=== PATIENT | male | born 1950 | race Caucasian/White ===

== ENCOUNTER 2022-07-29 11:45 | Outpatient (CLI) | payer OTHER, SELFPAY | END 2022-07-29 11:46 | disposition home or self-care (01) | LOC: AMB 07-31 19:20 | PROVIDERS: Visit Provider Emergency Medicine Emergency Medical Services | DX: J44.9 Chronic obstructive pulmonary disease, unspecified (principal); R60.9 Edema, unspecified | CPT/HCPCS: A0425; A0429 ==

== ENCOUNTER 2022-07-29 12:26 | Emergency (ER) | payer OTHER, SELFPAY ==
[2022-07-29 12:33] VITALS: BP 114/92; PULSE 110; RESP 20; TEMP 36.7; O2SAT 97; BMI 47.4
[2022-07-29 13:56] LABS: HCO3 VBG 29 mmol/L (21-28); PCO2 VBG 47 mmHG (40-50); PO2 VBG 52.9 mmHG (25-47); pH VBG 7.401 (7.32-7.43)
--- NOTE | 2022-07-29 14:03 | ED_ITS ---
HPI - General Adult General Date Seen: 07/29/22 Chief complaint: Shortness of Breath/Dyspnea Stated complaint: Shortness of breath Time Seen by Provider: 07/29/22 12:34 Source: patient History of Present Illness HPI narrative: The patient is a 71-year-old male with underlying COPD who lives independently. He says that he felt at baseline when he woke up this morning but around 10 30 start to feel short of breath in over the next 10 minutes or so became short of breath enough that he decided to call 911. He tried his inhalers a few times at home but did not feel any relief. The paramedics gave him a DuoNeb and he felt quite a bit better after that but does not feel back to baseline. Denies any chest pain. He always has a cough which is normally productive but he says right now he is having difficulty coughing anything up which he thinks is part of the problem. He has not had fevers that he knows of. He always has swelling in his legs, he takes Lasix for that. He feels he is at baseline for that. Does not know of any history of congestive heart failure. No longer smokes. Related Data Home Medications Medication Instructions Recorded Confirmed acitretin 25 mg capsule 25 mg PO DAILY 07/29/22 07/29/22 dextromethorphan-guaifenesin 10 10 ml PO Q8H PRN 07/29/22 07/29/22 mg-100 mg/5 mL oral liquid (Laurence-Tussin DM) furosemide 40 mg tablet 20 mg PO DAILY 07/29/22 07/29/22 gabapentin 400 mg capsule 400 mg PO TID 07/29/22 07/29/22 loratadine 10 mg tablet (Claritin) 10 mg PO DAILY 07/29/22 07/29/22 losartan 100 mg tablet (Cozaar) 100 mg PO DAILY 07/29/22 07/29/22 metoprolol succinate 200 mg 200 mg PO Q24H 07/29/22 07/29/22 capsule sprinkle, ext. release 24 hr tamsulosin 0.4 mg capsule (Flomax) 0.4 mg PO QHS 07/29/22 07/29/22 Allergies Allergy/AdvReac Type Severity Reaction Status Date / Time No Known Drug Allergies Allergy Verified 07/29/22 12:51 Review of Systems Status of ROS: Reports: 10 or more systems reviewed and unremarkable except as noted in History and below Exam Narrative: Exam Narrative: Vital signs as noted above. In general, an alert, nontoxic elderly male. Significantly overweight. Head: Normocephalic, atraumatic. Eyes: Pupils are equal reactive. Extraocular movements are full. Conjunctivae are normal. ENT: Mucous membranes are moist. Throat is normal. Neck: Supple without lymphadenopathy. Heart: Regular rate and rhythm. No murmur or rub. Lungs: Breath sounds are diminished with occasional wheezes. No significant crackles. Abdomen: Protuberant and soft, no significant tenderness. Extremities: He has [place] type boots on both lower extremities, these were not removed. Radial pulses intact bilaterally. Neurologic: Patient is alert and oriented to person and place. Speech is fluent. Face is symmetric. Moves all extremities equally. Affect: Normal. Skin: Warm and dry. Well perfused. Const: Vital Signs, click to edit/add: Vital Signs - 24 hr 07/29/22 12:33 Temperature 98.1 F Pulse Rate [Left P ulse Oximeter] 110 H Respiratory Rate 20 Blood Pressure [Le ft Upper Arm] 114/92 H Pulse Oximetry 97 Oxygen Delivery Me thod Room Air Documenting provider has reviewed patient's vital signs: yes Course Course Hospital Course: Following initial evaluation, I ordered an additional albuterol neb as well as prednisone. Symptoms may be related to a COPD exacerbation. Patient thinks they might be related to something he ate as he has had a couple episodes like this after eating a subway sandwich a number of years ago. He had breakfast including toast, eggs, sausage, nothing really out of the ordinary for him. He did not have any hives or other allergic-type symptoms. Certainly is not presenting as an anaphylactic type reaction. He has not received any antihistamines. Blood gas shows a pH of 7.4. PCO2 is 47. Labs show a white blood cell count of 9.7, hemoglobin of 13.9. D-dimer was elevated at 1.35 and I elected to do a CT scan of the chest with contrast. This did not show any evidence of pulmonary embolism by my review. Final radiology read is as follows: Bibasilar ground-glass/tree-in-bud nodularity, likely from aspiration. No large focal consolidations. Indeterminate right upper lobe 6 millimeters subpleural pulmonary nodule, likely infectious/inflammatory in etiology. However, recommend dedicated chest CT in 6 months to evaluate for interval change. Incomplete visualization of left adrenal mass with Hounsfield units of approximately 10-15, which likely suggest adenoma. However, recommend correlation with prior imaging if available. If not, consider outpatient adrenal washout protocol CT for definitive characterization. I have discussed these findings with the patient. It sounds as if that nodule has been seen previously, as he seems to be aware of it. Nonetheless, I have printed out the CT report so that [facility] sure that that [facility]. The adrenal mass will need to be followed up as well. CRP is mildly elevated at 4, otherwise labs really look okay. Troponin was negative on arrival and at 3 hours.. I do not see anything to suggest acute coronary syndrome. BNP was 472. The ground-glass findings, likely aspiration, again can be followed up as an outpatient if that is a persistent problem. At this point, he is feeling much better. He is up having a meal. Breathing is improved. I think it is reasonable to let him go home. Suspect component of COPD exacerbation, possible aspiration component. Primary care follow-up, return at any time for worsening. Steroids and antibiotics as ordered. Vital Signs Vital signs: Initial Vital Signs Temperature 98.1 F 07/29/22 12:33 Temperature Source Temporal Artery Scan 07/29/22 12:33 Pulse Rate 110 H 07/29/22 12:33 Pulse Rhythm 07/29/22 12:33 Pulse Strength 3+ Normal 07/29/22 12:33 Respiratory Rate 20 07/29/22 12:33 Blood Pressure 114/92 H 07/29/22 12:33 Blood Pressure Mean 99 07/29/22 12:33 Blood Pressure Position Sitting 07/29/22 12:33 Pulse Oximetry 97 07/29/22 12:33 Oxygen Delivery Method 07/29/22 12:33 Vital Signs Temperature 98.1 F 07/29/22 12:33 Pulse Rate 110 H 07/29/22 12:33 Respiratory Rate 20 07/29/22 12:33 Blood Pressure 114/92 H 07/29/22 12:33 Pulse Oximetry 97 07/29/22 12:33 Oxygen Delivery Method 07/29/22 12:33 Temperature 98.1 F 07/29/22 12:33 Pulse Rate 110 H 07/29/22 12:33 Respiratory Rate 20 07/29/22 12:33 Blood Pressure 114/92 H 07/29/22 12:33 Pulse Oximetry 97 07/29/22 12:33 Oxygen Delivery Method 07/29/22 12:33 Medical Decision Making Lab Data Labs: Lab Results 07/29/22 07/29/22 07/29/22 Range/Units 13:25 13:25 13:25 WBC (4.50-11.00) K/uL RBC (4.30-5.90) m/uL Hgb (13.5-17.5) gm/dL Hct (37.0-53.0) % MCV (80-100) fL MCH (26-34) pg MCHC (32-36) gm/dL RDW Coeff of Sharonda (11.5-15.5) % Plt Count (140-440) K/uL Neut % (Auto) (42.0-72.0) % Lymph % (Auto) (20-44) % [place] % (Auto) (0.0-11.0) % Eos % (Auto) (0.0-7.0) % Baso % (Auto) (0.0-3.0) % Neut # (Auto) (1.7-7.0) K/uL Lymph # (Auto) (0.90-2.90) K/uL [place] # (Auto) (0.00-0.90) K/UL Eos # (Auto) (0.00-0.50) K/uL Baso # (Auto) (0.00-0.30) K/uL D-Dimer Quant (PE/DVT) 1.35 H (0.00-0.50) ug/ml VBG pH (7.32-7.43) VBG pCO2 (40-50) mmHG VBG pO2 (25-47) mmHG VBG HCO3 (21-28) mmol/L Sodium 141 (135-149) mmol/L Potassium 3.9 (3.6-5.1) mmol/L Chloride 105 (96-114) mmol/L Carbon Dioxide 28 (20-32) mmol/L BUN 28 (7-30) mg/dL Creatinine 1.2 (0.5-1.5) mg/dL Estimated Creat Clear 70.13 Estimated GFR 64 ml/min Glucose 115 (60-115) mg/dL Calcium 9.1 (8.4-10.6) mg/dL Total Bilirubin 0.9 (0.1-1.5) mg/dL Direct Bilirubin 0.4 (0.0-0.5) mg/dL AST 28 (12-35) U/L ALT 32 (4-50) U/L Alkaline Phosphatase 108 (40-150) U/L C-Reactive Protein 4.0 H (0.5-1.0) mg/dL NT-Pro-B Natriuret Pep pg/mL Total Protein 7.8 (6.0-8.3) g/dL Albumin 4.2 (3.3-5.0) g/dL SARS-CoV-2 (PCR) Negative SARS-CoV-2 (Negative) Influenza Type A (PCR) Negative PCR FLU A (Negative) Influenza Type B (PCR) Negative PCR FLU B (Negative) RSV (PCR) Negative PCR RSV (Negative) POC Troponin I (0.01-0.04) ng/ml 07/29/22 07/29/22 07/29/22 Range/Units 13:25 13:25 13:25 WBC (4.50-11.00) K/uL RBC (4.30-5.90) m/uL Hgb (13.5-17.5) gm/dL Hct (37.0-53.0) % MCV (80-100) fL MCH (26-34) pg MCHC (32-36) gm/dL RDW Coeff of Sharonda (11.5-15.5) % Plt Count (140-440) K/uL Neut % (Auto) (42.0-72.0) % Lymph % (Auto) (20-44) % [place] % (Auto) (0.0-11.0) % Eos % (Auto) (0.0-7.0) % Baso % (Auto) (0.0-3.0) % Neut # (Auto) (1.7-7.0) K/uL Lymph # (Auto) (0.90-2.90) K/uL [place] # (Auto) (0.00-0.90) K/UL Eos # (Auto) (0.00-0.50) K/uL Baso # (Auto) (0.00-0.30) K/uL D-Dimer Quant (PE/DVT) (0.00-0.50) ug/ml VBG pH 7.401 (7.32-7.43) VBG pCO2 47 (40-50) mmHG VBG pO2 52.9 H (25-47) mmHG VBG HCO3 29 H (21-28) mmol/L Sodium (135-149) mmol/L Potassium (3.6-5.1) mmol/L Chloride (96-114) mmol/L Carbon Dioxide (20-32) mmol/L BUN (7-30) mg/dL Creatinine (0.5-1.5) mg/dL Estimated Creat Clear Estimated GFR ml/min Glucose (60-115) mg/dL Calcium (8.4-10.6) mg/dL Total Bilirubin (0.1-1.5) mg/dL Direct Bilirubin (0.0-0.5) mg/dL AST (12-35) U/L ALT (4-50) U/L Alkaline Phosphatase (40-150) U/L C-Reactive Protein (0.5-1.0) mg/dL NT-Pro-B Natriuret Pep 472 pg/mL Total Protein (6.0-8.3) g/dL Albumin (3.3-5.0) g/dL SARS-CoV-2 (PCR) (Negative) Influenza Type A (PCR) (Negative) Influenza Type B (PCR) (Negative) RSV (PCR) (Negative) POC Troponin I 0.00 L (0.01-0.04) ng/ml 07/29/22 07/29/22 Range/Units 14:42 15:33 WBC 9.71 (4.50-11.00) K/uL RBC 4.55 (4.30-5.90) m/uL Hgb 13.9 (13.5-17.5) gm/dL Hct 43.0 (37.0-53.0) % MCV 95 (80-100) fL MCH 31 (26-34) pg MCHC 32 (32-36) gm/dL RDW Coeff of Sharonda 14.6 (11.5-15.5) % Plt Count 228 (140-440) K/uL Neut % (Auto) 69.9 (42.0-72.0) % Lymph % (Auto) 14.3 L (20-44) % [place] % (Auto) 8.8 (0.0-11.0) % Eos % (Auto) 5.7 (0.0-7.0) % Baso % (Auto) 0.2 (0.0-3.0) % Neut # (Auto) 6.79 (1.7-7.0) K/uL Lymph # (Auto) 1.40 (0.90-2.90) K/uL [place] # (Auto) 0.90 (0.00-0.90) K/UL Eos # (Auto) 0.55 H (0.00-0.50) K/uL Baso # (Auto) 0.02 (0.00-0.30) K/uL D-Dimer Quant (PE/DVT) (0.00-0.50) ug/ml VBG pH (7.32-7.43) VBG pCO2 (40-50) mmHG VBG pO2 (25-47) mmHG VBG HCO3 (21-28) mmol/L Sodium (135-149) mmol/L Potassium (3.6-5.1) mmol/L Chloride (96-114) mmol/L Carbon Dioxide (20-32) mmol/L BUN (7-30) mg/dL Creatinine (0.5-1.5) mg/dL Estimated Creat Clear Estimated GFR ml/min Glucose (60-115) mg/dL Calcium (8.4-10.6) mg/dL Total Bilirubin (0.1-1.5) mg/dL Direct Bilirubin (0.0-0.5) mg/dL AST (12-35) U/L ALT (4-50) U/L Alkaline Phosphatase (40-150) U/L C-Reactive Protein (0.5-1.0) mg/dL NT-Pro-B Natriuret Pep pg/mL Total Protein (6.0-8.3) g/dL Albumin (3.3-5.0) g/dL SARS-CoV-2 (PCR) (Negative) Influenza Type A (PCR) (Negative) Influenza Type B (PCR) (Negative) RSV (PCR) (Negative) POC Troponin I 0.00 L (0.01-0.04) ng/ml Discharge Plan Discharge Clinical Impression: Acute infective exacerbation of chronic obstructive airway disease Patient Disposition: Home, Self-Care Condition: Improved Instructions: COPD (Chronic Obstructive Pulmonary Disease) (DC) Additional Instructions: Medications as prescribed. If your shortness of breath is worsening over the next couple of days, return at any time for re-evaluation. If you are not feeling improved over the next several days, follow-up with your primary care provider, or if that is not an option, return to the ER. Activity Level: No Restrictions Discharge Diet: Regular Prescriptions: No Action gabapentin 400 mg capsule 400 mg PO TID loratadine [Claritin] 10 mg tablet 10 mg PO DAILY metoprolol succinate 200 mg capsule,sprinkle,ER 24hr 200 mg PO Q24H furosemide 40 mg tablet 20 mg PO DAILY losartan [Cozaar] 100 mg tablet 100 mg PO DAILY tamsulosin [Flomax] 0.4 mg capsule 0.4 mg PO QHS acitretin 25 mg capsule 25 mg PO DAILY dextromethorphan-guaifenesin [Laurence-Tussin DM] 10-100 mg/5 mL liquid 10 ml PO Q8H PRN Follow Up/Referrals: Juliocesar Pierce MD [Staff Physician] - Stand Alone Forms: [employer] Info Instructions Discharge Comment: Pt has his medications with him to take when he gets home
[2022-07-29] MEDS: ALBUTEROL SULFATE 2.5 MG/3 ML VIAL.NEB NEB (14:07)
[2022-07-29] MEDS: predniSONE 20 MG TABLET 60 MG PO (14:07)
[2022-07-29 14:14] LABS: Albumin* 4.2 g/dL (3.3-5.0); Chloride* 105 mmol/L (96-114)
[2022-07-29 14:15] LABS: Potassium* 3.9 mmol/L (3.6-5.1); Sodium* 141 mmol/L (135-149)
[2022-07-29 14:16] LABS: Creatinine* 1.2 mg/dL (0.5-1.5); Est. Creatinine Clearance* 70.13; Estimated Glomerular Filt Rate 64 ml/min
[2022-07-29 14:17] LABS: Bilirubin Direct* 0.4 mg/dL (0.0-0.5); Bilirubin Total* 0.9 mg/dL (0.1-1.5)
[2022-07-29 14:18] LABS: Alanine Aminotransferase* 32 U/L (4-50); Alkaline Phosphatase* 108 U/L (40-150); Aspartate Amino Transferase* 28 U/L (12-35); Blood Urea Nitrogen* 28 mg/dL (7-30); Calcium* 9.1 mg/dL (8.4-10.6); Carbon Dioxide* 28 mmol/L (20-32); Glucose* 115 mg/dL (60-115); Total Protein* 7.8 g/dL (6.0-8.3)
[2022-07-29 14:34] LABS: PCR FLU A Negative PCR FLU A (Negative); PCR FLU B Negative PCR FLU B (Negative); PCR RSV Negative PCR RSV (Negative)
[2022-07-29 14:43] LABS: SARS PCR* Negative SARS-CoV-2 (Negative)
[2022-07-29 14:54] LABS: NT Pro B Type NatriureticPept* 472 pg/mL
[2022-07-29 15:04] LABS: Basophils Absolute Auto 0.02 K/uL (0.00-0.30); Basophils Percent Auto 0.2 % (0.0-3.0); Eosinophils Absolute Auto 0.55 K/uL (0.00-0.50); Eosinophils Percent Auto 5.7 % (0.0-7.0); Hemoglobin* 13.9 gm/dL (13.5-17.5); Immature Granulocytes Abs Auto 0.11 K/uL (0.00-0.30); Immature Granulocytes Pct Auto 1.1 %; Lymphocytes Percent Auto 14.3 % (20-44); Mean Corpuscular HGB Conc 32 gm/dL (32-36); Mean Corpuscular Hemoglobin 31 pg (26-34); Mean Corpuscular Volume 95 fL (80-100); Monocytes Percent Auto 8.8 % (0.0-11.0); Neutrophils Absolute Auto 6.79 K/uL (1.7-7.0); Neutrophils Percent Auto 69.9 % (42.0-72.0); Platelet Count* 228 K/uL (140-440); RDW Coefficient of Variation % 14.6 % (11.5-15.5); Red Blood Count 4.55 m/uL (4.30-5.90); White Blood Count* 9.71 K/uL (4.50-11.00)
[2022-07-29 15:21] LABS: D Dimer Quantitative* 1.35 ug/ml (0.00-0.50)
[2022-07-29 15:21] LABS: Slide Review Reflex No
--- NOTE | 2022-07-29 15:33 | CRLHL7_ITS ---
For Patients: As a result of the Century Cures Act, medical imaging exams and procedure reports are released immediately into your electronic medical record. You may view this report before your referring provider. If you have questions, please contact your health care provider. INDICATION: [id number]. TECHNIQUE: CT chest PE was acquired with 95 cc Omnipaque 350 IV contrast. COMPARISON: None. FINDINGS: Heart and vasculature: Contrast opacification of the pulmonary arterial tree is adequate. No sign of pulmonary embolism. Heart size is normal. Thoracic aorta and pulmonary artery are normal in caliber. Aortic arch and coronary artery calcifications. Lungs and pleura: Bibasilar ground-glass/tree-in-bud nodules. Linear right upper lobe subpleural consolidation, likely atelectasis scattered atelectasis. Incidental 6 millimeter right upper lobe subpleural pulmonary nodule. No pleural effusions, pleural thickening, or pneumothorax. Lymph nodes/mediastinum: No mediastinal, hilar, or axillary adenopathy. Chest wall: No masses. Upper abdomen: Incomplete visualization of left adrenal mass with Hounsfield units of approximately 10 to 15, which likely suggests adenoma. No acute or significant findings. Bones: Degenerative changes. IMPRESSION: No pulmonary embolism, as questioned. Bibasilar ground-glass/tree-in-bud nodularity, likely from aspiration. No large focal consolidations. Indeterminate right upper lobe 6 millimeters subpleural pulmonary nodule, likely infectious/inflammatory in etiology. However, recommend dedicated chest CT in 6 months to evaluate for interval change. Incomplete visualization of left adrenal mass with Hounsfield units of approximately 10-15, which likely suggest adenoma. However, recommend correlation with prior imaging if available. If not, consider outpatient adrenal washout protocol CT for definitive characterization. Please note that all CT scans at this facility use dose modulation, iterative reconstruction, and/or weight-based dosing when appropriate to reduce radiation dose to as low as reasonably achievable. Dictated by Nadir Sheets MD @ 07/29/2022 4:40:37 PM (Electronically Signed)
== END 2022-07-29 18:14 | disposition home or self-care (01) ==
PROVIDERS: Emergency Provider Emergency Medicine
DX: J44.1 Chronic obstructive pulmonary disease with (acute) exacerbation (principal)
CPT/HCPCS: 36415; 71260; 80048; 80076; 82803; 83880; 84484; 85025; 85379; 86140; 87502; 87634; 87635; 93005; 94640; 99284; 99285; J7512; Q9967

== ENCOUNTER 2022-07-29 18:07 | Outpatient (CLI) | payer OTHER, SELFPAY | END 2022-07-29 18:08 | disposition home or self-care (01) | LOC: AMB 07-31 19:38 | PROVIDERS: Visit Provider Emergency Medicine | DX: J44.9 Chronic obstructive pulmonary disease, unspecified (principal) | CPT/HCPCS: A0425; A0428 ==

== ENCOUNTER 2023-01-10 07:05 | Outpatient (CLI) | payer OTHER, SELFPAY | END 2023-01-10 07:06 | disposition home or self-care (01) | LOC: AMB 02-05 15:44 | PROVIDERS: Visit Provider Emergency Medicine | DX: R53.1 Weakness (principal) | CPT/HCPCS: A0998 ==

== ENCOUNTER 2024-03-25 09:22 | Inpatient (IN) | payer OTHER, SELFPAY ==
[2024-03-25] VITALS (29 sets, daily range): BP systolic 106–127; BP diastolic 65–80; PULSE 80–120; RESP 18–36; TEMP 36.1–36.7; O2SAT 84–99; BMI 40.8; BMI 43.0
--- NOTE | 2024-03-25 09:30 | ED_ITS ---
HPI - General Adult General Date Seen: 03/25/24 Chief complaint: Shortness of Breath/Dyspnea Stated complaint: Shortness of breath Time Seen by Provider: 03/25/24 09:22 History of Present Illness HPI narrative: 73-year-old male with history of COPD, hypertension, BPH, AFib (on Eliquis) CHF (on furosemide) presenting to the ER today this morning by EMS from home for evaluation of shortness of breath. Patient reports that he does have some ongoing trouble with COPD. Last time he had a flare of COPD was a couple of months ago when he was on a course of prednisone at that time. He started having shortness of breath yesterday evening at home and also had some chest pain lasted for a while but then resolved (across the entire chest, nonradiating. Overnight he was short of breath. This morning he was more short of breath. He tried to give himself his nebs at home but they were not helping. He called EMS. They felt he was wheezy. EMS administered DuoNeb and then continues albuterol neb EN route but he was still tachypneic and short of breath. He is not having any chest pain overnight or today. He does have some swelling in both of his feet but he says that that is long-standing and sometimes gets better and worse. It is about normal. No new peripheral edema. The no known sick exposures. He has had some mild cough but no purulent sputum. No fevers. No nausea or vomiting. No abdominal pain. No back pain. Related Data Home Medications ?Medication ?Instructions ?Recorded ?Confirmed acitretin 25 mg capsule 25 mg PO DAILY 07/29/22 07/29/22 dextromethorphan-guaifenesin 10 10 ml PO Q8H PRN 07/29/22 07/29/22 mg-100 mg/5 mL oral liquid (Laurence-Nadinein DM) furosemide 40 mg tablet 20 mg PO DAILY 07/29/22 07/29/22 gabapentin 400 mg capsule 400 mg PO TID 07/29/22 07/29/22 loratadine 10 mg tablet (Claritin) 10 mg PO DAILY 07/29/22 07/29/22 losartan 100 mg tablet (Cozaar) 100 mg PO DAILY 07/29/22 07/29/22 metoprolol succinate 200 mg 200 mg PO Q24H 07/29/22 07/29/22 capsule sprinkle, ext. release 24 hr tamsulosin 0.4 mg capsule (Flomax) 0.4 mg PO QHS 07/29/22 07/29/22 Allergies Allergy/AdvReac Type Severity Reaction Status Date / Time No Known Drug Allergies Allergy Verified 03/25/24 12:26 [facility] Social History Non-prescribed substance use: denies use Exam Narrative: Exam Narrative: Primary Survey: A- patent. Speaking clearly. Phonation normal. No stridor. B- being placed on BiPAP by RT is into the room. On BiPAP his work of breathing seems to calm and respiratory rate comes down into the teens.. Fairly diffuse wheezing in all lung quick oxygenating well on 30% FiO2 C- no active bleeding. Blood pressure stable. Symmetric pulses and cap refill in 4 extremities. He does have 3+ edema in both of his feet D- alert and oriented x3. GCS 15. No focal deficits. Constitutional: Appears well-developed and well-nourished. Alert. Conversant through his BiPAP mask. Mental status normal. HENT: Head: Atraumatic. Nose: Nose normal. Mouth/Throat: Oral mucosa is clear and moist. no trismus. Not able to visualize pharynx because he has BiPAP mask Eyes: Conjunctivae normal. EOM normal. Pupils equal, round, and reactive to light. No scleral icterus. Neck: Normal range of motion. Neck supple. No tracheal deviation present. No JVD Cardiovascular: Tachycardic, regular rhythm. No gallop. No friction rub. No murmur heard. Symmetric radial artery pulses Pulmonary/Chest: Presented by EMS with significant tachypnea. Work of breathing is improving now that he starting on BiPAP. Diffuse wheezy lung sounds Abdominal: Soft. No distension. No mass. No tenderness. No rebound. No guarding. Musculoskeletal: RUE: Normal range of motion. No tenderness. No deformity LUE: Normal range of motion. No tenderness. No deformity RLE: Normal range of motion. 3+ edema. No tenderness. No deformity LLE: Normal range of motion. 3+ edema. No tenderness. No deformity Neurological: Alert and oriented to person, place, and time. Normal strength. CN II-VII intact. No sensory deficit. GCS eye subscore is 4. GCS verbal subscore is 5. GCS motor subscore is 6. Normal coordination Skin: Skin is warm and dry. No rash noted. No pallor. Normal capillary refill. Psychiatric: Normal mood. Normal affect. Const: Vital Signs, click to edit/add: Vital Signs - 24 hr 03/25/24 09:31 03/25/24 09:57 03/25/24 10:00 Temperature Pulse Rate 109 H 105 H Pulse Rate [Pulse Oximeter] 112 H Respiratory Rate 20 Blood Pressure Blood Pressure [Le ft Forearm] 127/73 Pulse Oximetry 98 95 93 Oxygen Delivery Me thod Room Air BiPAP Fraction of Inspir ed Oxygen 03/25/24 10:07 03/25/24 10:15 03/25/24 10:30 Temperature Pulse Rate 104 H 106 H Pulse Rate [Pulse Oximeter] Respiratory Rate Blood Pressure Blood Pressure [Le ft Forearm] Pulse Oximetry 93 95 Oxygen Delivery Me thod Fraction of Inspir ed Oxygen 03/25/24 10:45 03/25/24 11:00 03/25/24 11:15 Temperature Pulse Rate 102 H 120 H 109 H Pulse Rate [Pulse Oximeter] Respiratory Rate Blood Pressure Blood Pressure [Le ft Forearm] Pulse Oximetry 93 84 L 96 Oxygen Delivery Me thod Fraction of Inspir ed Oxygen 03/25/24 11:21 03/25/24 11:30 03/25/24 11:32 Temperature Pulse Rate 107 H 103 H 103 H Pulse Rate [Pulse Oximeter] Respiratory Rate Blood Pressure 127/80 107/69 Blood Pressure [Le ft Forearm] Pulse Oximetry 99 94 93 Oxygen Delivery Me thod Fraction of Inspir ed Oxygen 03/25/24 11:45 03/25/24 12:43 03/25/24 12:45 Temperature Pulse Rate 107 H 97 94 Pulse Rate [Pulse Oximeter] Respiratory Rate Blood Pressure 117/72 Blood Pressure [Le ft Forearm] Pulse Oximetry 95 94 98 Oxygen Delivery Me thod Fraction of Inspir ed Oxygen 03/25/24 12:46 03/25/24 13:00 03/25/24 13:02 Temperature Pulse Rate 96 95 94 Pulse Rate [Pulse Oximeter] Respiratory Rate Blood Pressure 122/67 Blood Pressure [Le ft Forearm] Pulse Oximetry 98 95 94 Oxygen Delivery Me thod Fraction of Inspir ed Oxygen 03/25/24 13:02 03/25/24 13:02 03/25/24 13:02 Temperature Pulse Rate 94 94 94 Pulse Rate [Pulse Oximeter] Respiratory Rate Blood Pressure 122/67 122/67 122/67 Blood Pressure [Le ft Forearm] Pulse Oximetry 94 94 94 Oxygen Delivery Me thod Fraction of Inspir ed Oxygen 03/25/24 13:15 03/25/24 13:16 Temperature 97.0 F L Pulse Rate 96 Pulse Rate [Pulse Oximeter] Respiratory Rate Blood Pressure Blood Pressure [Le ft Forearm] Pulse Oximetry 97 Oxygen Delivery Me thod Fraction of Inspir ed Oxygen Course Course ED Course: Recheck-initial read of x-ray shows no definite pulmonary edema but small right pleural effusion. Somewhat equivocal for CHF. Nebs and steroids ordered. Reevaluation(s) Reevaluation #1: Recheck-BNP level came back fairly low and normal, arguing against possible CHF. Given potential bilateral infiltrates x-ray consider possible pneumonia. COVID negative. Antibiotics for community-acquired pneumonia ordered as well. Reevaluation #2: Recheck-patient momentarily took his BiPAP off and got much more short of breath, and he desaturated down to the 70s. Nurses did call for rapid support from RT. RT and myself responded. He was placed back on BiPAP and sats came up nicely. Respirations stable. Turns out he had not yet received the nebs I had ordered, these were given. Reevaluation #3: Recheck-discussed with hospitalist, Hannah Johnson. She requests that we do further workup with a chest CT before she can accept the patient, but if CT scan shows no unexpected or dangers finding, she anticipates she could keep him in the critical care unit here in [place]. Patient would prefer to transfer to the [place], if available. Additional Reevaluation(s[facility] but will contact administation to see if something can be arranged and they will call back Consultations Consultation #1: Recheck-patient became more anxious and claustrophobic with laying down and going through the CT scanner. Versed 1 mg IV ordered. Patient subsequently able to tolerate CT. Recheck-CT scan shows no evidence for PE, pulmonary edema, pneumothorax, pleural effusion, or large pneumonia. Consultation #2: Recheck-breathing well on BiPAP. Oxygen sats in the 90s on 30% FiO2. Blood pressure 132/64. Watching TV. Feeling better compared to arrival. [facility] with the [facility] He would be agreeable to be admitted here then Vital Signs Vital signs: Initial Vital Signs Pulse Rate 112 H 03/25/24 09:31 Respiratory Rate 20 03/25/24 09:31 Blood Pressure 127/73 03/25/24 09:31 Blood Pressure Mean 91 03/25/24 09:31 Blood Pressure Position Sitting 03/25/24 09:31 Pulse Oximetry 98 03/25/24 09:31 Oxygen Delivery Method Room Air, BiPAP 03/25/24 09:31 Vital Signs Pulse Rate 112 H 03/25/24 09:31 Respiratory Rate 20 03/25/24 09:31 Blood Pressure 127/73 03/25/24 09:31 Pulse Oximetry 98 03/25/24 09:31 Oxygen Delivery Method Room Air, BiPAP 03/25/24 09:31 Temperature 97.0 F L 03/25/24 13:16 Pulse Rate 96 03/25/24 13:15 Respiratory Rate 20 03/25/24 09:31 Blood Pressure 122/67 03/25/24 13:02 Pulse Oximetry 97 03/25/24 13:15 Oxygen Delivery Method Room Air, BiPAP 03/25/24 09:31 Fraction of Inspired Oxygen 21 03/25/24 10:07 Medications Administered Medications: Generic Name Dose Route Start Last Admin Trade Name Freq PRN Reason Stop Dose Admin Magnesium Sulfate 2 gm in 50 mls @ 25 mls/hr 03/25/24 12:30 03/25/24 13:12 Magnesium Iv IVPB 03/25/24 14:29 25 mls/hr ONCE ONE Administration Discontinued Medications Generic Name Dose Route Start Last Admin Trade Name Freq PRN Reason Stop Dose Admin Albuterol/Ipratropium 1 neb 03/25/24 10:36 03/25/24 11:21 Iprat-Albut 0.5-2.5 Mg/3 Ml Neb IH 03/25/24 10:37 1 neb ONCE ONE Administration Furosemide 40 mg 03/25/24 11:35 03/25/24 13:13 Furosemide 10 Mg/Ml Inj IVP 03/25/24 11:36 40 mg ONCE ONE Administration Ceftriaxone Sodium 1 gm/ 100 mls @ 200 mls/hr 03/25/24 11:31 03/25/24 13:12 Sodium Chloride IVPB 03/25/24 11:32 Infused ONCE ONE Infusion Methylprednisolone Sodium Succinate 125 mg 03/25/24 10:36 03/25/24 11:21 Methylprednisolone Sod Succ 62.5 Mg/Ml (125) IVP 03/25/24 10:37 125 mg ONCE ONE Administration Midazolam HCl 1 mg 03/25/24 12:08 03/25/24 12:29 Midazolam Hcl 1 Mg/Ml Inj IVP 03/25/24 12:09 1 mg ONCE ONE Administration Medical Decision Making MDM Narrative Medical decision making narrative: Pleasant 73-year-old presenting to the ER today by EMS from home with acute shortness of breath. He was tachypneic and anxious while in EMS and upon arrival. Lung sounds were diffusely wheezy when he arrived, and I suspected possible COPD. Also had fairly significant bilateral symmetric lower extremity edema raising the possibility for CHF as well. Also differential would include COVID, community-acquired pneumonia, acute coronary syndrome, PE and other causes of shortness of breath. On my initial evaluation patient was wheezy. He was a dry 8 LEEP placed on BiPAP by nursing and RT even before I entered his room upon arrival and was already improving with the pressure support. He was able to oxygen a pretty well on 30% FiO2. This seemed to be primarily a work of breathing issue rather than an oxygenation problem. RT was concerned about possible CHF. X-ray was obtained and showed no definite signs of overt cardiac failure causing ?cardiac asthma. Lasix ordered because he does take that at home. He nebulizers and steroids ordered. Unfortunately these meds were delayed during the treatment process but eventually given. COVID negative. With potential infiltrate versus atelectasis on the chest x-ray antibiotics for community-acquired pneumonia also ordered. Blood gas shows a normal pH and near normal pCO2. Patient received the nebs, steroids, magnesium. EKG shows no definite ischemia. Troponin is negative. N terminal proBNP actually came back pretty normal at 98, arguing against CHF. Patient will require hospitalization and needs pressure support from BiPAP for work of breathing. Discussed with our hospitalist. She says we will be able to accommodate the patient here in [place] but requests further workup with chest CT before she can not accept him. Patient also would request transfer to the [place], where he gets most of his medical care. We did contacted [facility] and they currently do not have any ICU beds (necessary to accommodate him while on BiPAP). Chest CT is negative for PE, pneumonia, pulmonary edema, pleural effusion. It does show some central bronchial wall thinking and central nodularity which could be bronchitis or infectious. Patient will be admitted by hospitalistHannah Lab Data Labs: Lab Results 03/25/24 Range/Units 09:54 WBC 8.93 (4.50-11.00) K/uL RBC 4.80 (4.30-5.90) m/uL Hgb 14.4 (13.5-17.5) gm/dL Hct 45.0 (37.0-53.0) % MCV 94 (80-100) fL MCH 30 (26-34) pg MCHC 32 (32-36) gm/dL RDW Coeff of Sharonda 13.0 (11.5-15.5) % Plt Count 287 (140-440) K/uL Neut % (Auto) 68.1 (42.0-72.0) % Lymph % (Auto) 12.7 L (20-44) % Crowley % (Auto) 7.1 (0.0-11.0) % Eos % (Auto) 11.3 H (0.0-7.0) % Baso % (Auto) 0.6 (0.0-3.0) % Neut # (Auto) 6.09 (1.7-7.0) K/uL Lymph # (Auto) 1.10 (0.90-2.90) K/uL Crowley # (Auto) 0.60 (0.00-0.90) K/UL Eos # (Auto) 1.00 H (0.00-0.50) K/uL Baso # (Auto) 0.05 (0.00-0.30) K/uL Abs Immat Gran (auto) 0.02 (0.00-0.30) K/uL Imm/Tot Granulo (auto) 0.2 % VBG pH 7.430 (7.32-7.43) VBG pCO2 46 (40-50) mmHG VBG pO2 48.6 H (25-47) mmHG VBG HCO3 31 H (21-28) mmol/L Sodium 137 (135-149) mmol/L Potassium 3.4 L (3.6-5.1) mmol/L Chloride 100 (96-114) mmol/L Carbon Dioxide 31 (20-32) mmol/L Anion Gap 6 L (7-15) mEq/L BUN 14 (7-30) mg/dL Creatinine 1.0 (0.5-1.5) mg/dL Estimated Creat Clear 81.68 Estimated GFR 79 ml/min Glucose 110 (60-115) mg/dL Lactate 1.7 (0.5-1.9) mmol/L Calcium 9.0 (8.4-10.6) mg/dL Troponin I < 0.01 L (0.01-0.04) ng/mL NT-Pro-B Natriuret Pep 98 pg/mL SARS-CoV-2 (PCR) Negative SARS-CoV-2 (Negative) Influenza Type A (PCR) Negative PCR FLU A (Negative) Influenza Type B (PCR) Negative PCR FLU B (Negative) RSV (PCR) Negative PCR RSV (Negative) Imaging Data Chest x-ray: Attestation: I have reviewed the pertinent imaging results. My impression: Right-sided pleural effusion. Some fluid in the right-sided fissure. No defini te infiltrates-Dr. Akhtar Radiologist's impression: IMPRESSION: Airspace opacities bilaterally, right greater than left. Imaging features suggest atelectasis at the left base and probably atelectasis and pleural-parenchymal scarring on the right. Chronic appearing pleural thickening or a small amount of pleural fluid is noted on the right. No overt congestive heart failure. CT scan - chest: Attestation: I have reviewed the pertinent imaging results. My impression: No PE or infiltrates- Dr Rd akhtar Radiologist's impression: IMPRESSION: 1. No evidence of pulmonary embolus. 2. Bilateral bronchial wall thickening suggesting bronchitis with some centrilobular nodularity in the lung bases. Some of this appears chronic although an infectious bronchiolitis is possible. 3. Severe coronary atherosclerosis. 4. Indeterminate left adrenal mass although stable compared to the study of July 2022. ECG Data Attestation: I personally reviewed and interpreted this ECG as follows: Interpretation: Sinus tachycardia Rate: 106 CA: 200 QRS axis: Normal axis. No pathologic Q-waves. ST segment/T wave: Nonspecific T-wave flattening. No ST segment elevation or depression. QTc: 427 Critical Care Time Critical Care Time Critical Care Time: Yes Attestation: The patient required my highest level preparedness to intervene emergently and I personally spent this critical care time directly and personally managing the patient. This critical care time included: Obtaining a history; Examining the patient; Pulse oximetry; Ordering and reviewing of studies; Arranging urgent treatment with development of a management plan; Evaluation of patients response to treatment; Frequent reassessment discussions with other providers. This critical care time was performed to assess and manage the high probability of imminent life-threatening deterioration that could result in multiorgan failure. It was exclusive of separate billable procedures and treating other patients and teaching time. Total Critical Care Time in Minutes: 40 Discharge Plan Discharge Clinical Impression: Asthma exacerbation in COPD, Hypoxia, Adrenal mass Prescriptions: No Action gabapentin 400 mg capsule 400 mg PO TID loratadine [Claritin] 10 mg tablet 10 mg PO DAILY metoprolol succinate 200 mg capsule,sprinkle,ER 24hr 200 mg PO Q24H furosemide 40 mg tablet 20 mg PO DAILY losartan [Cozaar] 100 mg tablet 100 mg PO DAILY tamsulosin [Flomax] 0.4 mg capsule 0.4 mg PO QHS acitretin 25 mg capsule 25 mg PO DAILY dextromethorphan-guaifenesin [Laurence-Tussin DM] 10-100 mg/5 mL liquid 10 ml PO Q8H PRN Follow Up/Referrals: Provider,Not a Local [Primary Care Provider] -
--- NOTE | 2024-03-25 09:42 | CRLHL7_ITS ---
For Patients: As a result of the Century Cures Act, medical imaging exams and procedure reports are released immediately into your electronic medical record. You may view this report before your referring provider. If you have questions, please contact your health care provider. INDICATION: Dyspnea COMPARISON: There are no prior studies for comparison TECHNIQUE: Single view examination FINDINGS: TUBES AND LINES: None. HEART AND MEDIASTINUM: The heart size is normal. The mediastinal contour appears normal for patient age. LUNGS AND PLEURAL SPACES: Airspace opacities at both bases, right greater than left and laterally in the right mid and basilar fran thorax. Probable pleural fluid or pleural thickening on the right. No overt congestive heart failure. OSSEOUS STRUCTURES: Age-appropriate appearance. No acute focal finding. IMPRESSION: Airspace opacities bilaterally, right greater than left. Imaging features suggest atelectasis at the left base and probably atelectasis and pleural-parenchymal scarring on the right. Chronic appearing pleural thickening or a small amount of pleural fluid is noted on the right. No overt congestive heart failure. Dictated by Tung Joseph MD @ 03/25/2024 10:25:18 AM (Electronically Signed)
[2024-03-25 10:07] LABS: HCO3 VBG 31 mmol/L (21-28); Lactate* 1.7 mmol/L (0.5-1.9); PCO2 VBG 46 mmHG (40-50); PO2 VBG 48.6 mmHG (25-47)
[2024-03-25 10:12] LABS: Basophils Absolute Auto 0.05 K/uL (0.00-0.30); Basophils Percent Auto 0.6 % (0.0-3.0); Eosinophils Percent Auto 11.3 % (0.0-7.0); Hemoglobin* 14.4 gm/dL (13.5-17.5); Immature Granulocytes Abs Auto 0.02 K/uL (0.00-0.30); Immature Granulocytes Pct Auto 0.2 %; Lymphocytes Percent Auto 12.7 % (20-44); Mean Corpuscular HGB Conc 32 gm/dL (32-36); Mean Corpuscular Hemoglobin 30 pg (26-34); Mean Corpuscular Volume 94 fL (80-100); Monocytes Percent Auto 7.1 % (0.0-11.0); Neutrophils Absolute Auto 6.09 K/uL (1.7-7.0); Neutrophils Percent Auto 68.1 % (42.0-72.0); Platelet Count* 287 K/uL (140-440); White Blood Count* 8.93 K/uL (4.50-11.00)
[2024-03-25 10:13] LABS: Slide Review Reflex No
--- OUTSIDE RECORDS SUMMARY | 2024-03-25 10:30 | XMS_ITS | Continuity of Care Document ---
Author Name [facility] Organization [facility] Care Team Providers Care Horticultural Technical Officer Name Role Phone [facility] Unavailable Unavailable Problems Combined list of problems from Department of Defense and Veterans Affairs facilities. It does not include entries that were removed or entered in error. Problem Status Onset Date Problem Type Date of Resolution Comments Source Exposure to potentially hazardous substance (SCT [id number]) Active 2023 Condition Sep 26, 2023 Entered By: LAVONNE DAY Comment[facility] Documentation Initiative [facility] Chronic obstructive lung disease Active 2015 Condition Sep 14, 2015 Entered By: MERARY ATKINS Comment: PFT done 08/28/15 [facility] Arthritis of right hip Active Condition [facility] Benign localized hyperplasia of prostate Active Condition [facility] Bilateral foot pain Active Condition [place] [facility] Body mass index 40+ - severely obese Active Condition [facility] Chronic back pain (SNOMED CT [id number]) Active Condition Apr Entered By: MERARY ATKINS Comment: s/p laminectomy L2-4 '00Aug 2018 Entered By: SHMUEL VAUGHAN Comment: disability parking permit application completed 03/10/18 with exp date 03/2023 [facility] Degenerative joint disease Active Condition Jun 14, 2016 Entered By: SY RODRIGUEZ Comment: CT 06/08/2016; bilateral hips mod/severe [facility] Diabetes Mellitus Type 2 (SCT 59009128) Active Condition [facility] Diastolic dysfunction Active Condition [facility] Drug monitoring done Active Condition [place] [facility] Family social history Active Condition Apr 24, 2012 Entered By: MERARY ATKINS Comment: f old age, hrt dsOct 2011 Entered By: MERARY ATKINS Comment: m breast ca met to lungOct 2011 Entered By: MERARY ATKINS Comment: 4 children healthy [facility] Hypertension (SNOMED CT 51863121) Active Condition [facility] Lipodermatosclerosis Active Condition [facility] Long-term current use of anticoagulant Active Condition [place] [facility] Lumbar spondylosis Active Condition [place] [facility] LUNG LESION Active Condition Apr 24, 2012 Entered By: MERARY ATKINS Comment: incidental on c-xray 04/21/12 [facility] 2011 Entered By: MERARY ATKINS Comment: CT chest 05/01/12 @[facility] 2011 Entered By: MERARY ATKINS Comment: CT chest 05/25/12 @[facility] lung nodules, new effusion, rib frxNov 2011 Entered By: MERARY ATKINS Comment: pulmonary nodule clinic referred 05/25/12Nov 2011 Entered By: MERARY ATKINS Comment: pulmo 05/29/[address] effusion & nodule surveillMar 2013 Entered By: MERARY ATKINS Comment: pulmo 09/19/13 per pulmo d/c monitor stable on CT [facility] Other and unspecified alcohol dependence, unspecified drinking behavior Active Condition [facility] Paroxysmal atrial fibrillation Active Condition [facility] Persistent atrial fibrillation Active Condition [facility] Psoriasis Active Condition [facility] SCREEN Active Condition Apr 24 12 Entered By: MERARY ATKINS Comment: c scopeOct 2011 Entered By: MERARY ATKINS Comment: AAA due 65-75Oct 2011 Entered By: MERARY ATKINS Comment: DEXA due >70 [facility] SOCIAL Hx Active Condition Apr 24 12 Entered By: MERARY ATKINS Comment: s hx >25y use quit '2011 Entered By: MERARY ATKINS Comment: e 3 mix drink vodka dailyOct 2011 Entered By: MERARY ATKINS Comment: d deniesOct 2011 Entered By: MERARY ATKINS Comment: 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[employer], [age], exposure deniesOct 2011 Entered By: MERARY ATKINS Comment: 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 Entered By: MERARY ATKINS Comment: marrital hx single, lives alone [facility] Solitary nodule of lung (SNOMED CT [id number]) Active Condition [facility] SURGERY Hx Active Condition Apr 24 012 Entered By: MERARY ATKINS Comment: laminectomy L2-4 '00Oct 2011 Entered By: MERARY ATKINS Comment: tonsilectomyOct 2011 Entered By: MERARY ATKINS Comment: adenoidectomyOct 2012 Entered By: MERARY ATKINS Comment: R tympanoplasty ' [facility] Tachycardia Active Condition Apr 29, 2012 Entered By: MERARY ATKINS Comment: EKG 04/24/12 sinus tach no acute ST or T wave changes [facility] Tobacco use (SNOMED CT 463126290) Active Condition Apr 24, 2012 Entered By: MERARY ATKINS Comment: quit ' >25yr use [facility] Venous stasis edema of bilateral lower limbs Active Condition [facility] Diagnosis: ICD-10-CM I50.9 Heart failure, unspecified Active Diagnosis [facility] Diagnosis: ICD-10-CM Z13.6 Encounter for screening for cardiovascular disorders Active Diagnosis [facility] Diagnosis: ICD-10-CM D12.0 Benign neoplasm of cecum Active Diagnosis [facility] Diagnosis: ICD-10-CM I50.32 Chronic diastolic (congestive) heart failure Active Diagnosis [facility] Diagnosis: ICD-10-CM H90.3 Sensorineural hearing loss, bilateral Active Diagnosis [facility] Diagnosis: ICD-10-CM Z68.41 Body mass index [BMI] 40.0-44.9, adult Active Diagnosis [place] [facility] Diagnosis: ICD-10-CM I50.30 Unspecified diastolic (congestive) heart failure Active Diagnosis [facility] Diagnosis: ICD-10-CM J44.9 Chronic obstructive pulmonary disease, unspecified Active Diagnosis [facility] Diagnosis: ICD-10-CM 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 Diagnosis [facility] Diagnosis: ICD-10-CM J44.1 Chronic obstructive pulmonary disease w (acute) exacerbation Active Diagnosis [facility] Diagnosis: ICD-10-CM I48.19 Other persistent atrial fibrillation Active Diagnosis [facility] Diagnosis: ICD-10-CM Z79.01 half-way (current) use of 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 Active Diagnosis HALIE Isaacs [facility] Diagnosis: ICD-10-CM Z01.118 Encntr for exam of ears and hearing w oth abnormal findings Active Diagnosis [facility] Diagnosis: ICD-10-CM H53.9 Unspecified visual disturbance Active Diagnosis JANNETHMiguelito BURCIAGA [facility] Diagnosis: ICD-10-CM H25.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, right eye Active Diagnosis [facility] Diagnosis: ICD-10-CM Z65.8 Oth problems related to psychosocial circumstances Active Diagnosis [facility] Diagnosis: ICD-10-CM Z00.01 Encounter for general adult medical exam w abnormal findings Active Diagnosis [facility] Diagnosis: ICD-10-CM E66.01 Morbid (severe) obesity due to excess calories Active Diagnosis [facility] Diagnosis: ICD-10-CM E66.9 Obesity, unspecified Active Diagnosis [facility] Diagnosis: ICD-10-CM Z74.09 Other reduced mobility Active Diagnosis [facility] Diagnosis: ICD-10-CM I51.89 Other ill-defined heart diseases Active Diagnosis [facility] Diagnosis: ICD-10-CM Z71.89 Other specified counseling Active Diagnosis [facility] Diagnosis: ICD-10-CM I48.91 Unspecified atrial fibrillation Active Diagnosis [facility] Diagnosis: ICD-10-CM I10 Essential (primary) hypertension Active Diagnosis [facility] Admit Reason: AFIB DOFETILIDE LOADING Active Diagnosis [facility] Diagnosis: ICD-10-CM I48.0 Paroxysmal atrial fibrillation Active Diagnosis [facility] Diagnosis: ICD-10-CM Z71.3 Dietary counseling and surveillance Active Diagnosis [facility] Diagnosis: ICD-10-CM L89.40 Pressr ulc of contig site of back, buttock and hip, unsp stg Active Diagnosis [facility] Diagnosis: ICD-10-CM L40.9 Psoriasis, unspecified Active Diagnosis [facility] Diagnosis: ICD-10-CM L30.9 Dermatitis, unspecified Active Diagnosis [facility] Diagnosis: ICD-10-CM S31.829D Unspecified open wound of left buttock, subsequent encounter Active Diagnosis [facility] Diagnosis: ICD-10-CM Z01.818 Encounter for other preprocedural examination Active Diagnosis [facility] Diagnosis: ICD-10-CM R53.1 Weakness Active [facility] Diagnosis: ICD-10-CM E11.9 Type 2 diabetes mellitus without complications Active Diagnosis [facility] Diagnosis: ICD-10-CM R26.9 Unspecified abnormalities of gait and mobility Active Diagnosis [facility] Diagnosis: ICD-10-CM Z51.81 Encounter for therapeutic drug level monitoring Active Diagnosis [facility] Diagnosis: ICD-10-CM Z71.9 Counseling, unspecified Active Diagnosis [facility] Diagnosis: ICD-10-CM U07.1 COVID-19 Active Diagnosis HALIE Isaacs [facility] Diagnosis: ICD-10-CM I95.9 Hypotension, unspecified Active Diagnosis [facility] Diagnosis: ICD-10-CM Z73.6 Limitation of activities due to disability Active Diagnosis [facility] Diagnosis: ICD-10-CM R26.89 Other abnormalities of gait and mobility Active Diagnosis [facility] Diagnosis: ICD-10-CM Z71.81 Spiritual or episcopalian counseling Active Diagnosis [place] [facility] Diagnosis: ICD-10-CM R06.02 Shortness of breath Active Diagnosis [facility] Admit Reason: AFIB RVR Active Diagnosis [facility] Diagnosis: ICD-10-CM R07.89 Other chest pain Active Diagnosis [facility] Diagnosis: ICD-10-CM R60.9 Edema, unspecified Active Diagnosis [facility] Medications Combined list of outpatient medications from Department of Defense and [place] [facility] facilities.Medications provided include 1) outpatient medications from the last 15 months, and 2) patient-reported medications. Medication Details Route Status Patient Instructions Prescription Expires Prescription Number Last Dispense Date Ordering Provider Order Date Order Qty Source ACETAMINOPH EN 500MG TAB ACETAMIN OPHEN 500MG TAB TAKE TWO TABLETS BY MOUTH THREE TIMES A DAY FOR PAIN *NOT TO EXCEED 4000MG IN 24 HOURS FROM ALL SOURCES* Feb 18, 2023 600 Feb 19, 2024 [id number] C Feb 06, 2024 CLARI MAIN ONDA I [facility] ORAL 02/19/2024 [id number] BENJAMIN MAIN NDA I 2022 600 [facility] ALBUTEROL 90MCG/ACTUA T (CFC-F) INHL,ORAL,8 .5GM DOSE COUNTER ALBUTERO L 90MCG/AC TUAT (CFC-F) INHL,ORA L,8.5GM DOSE COUNTER Active INHALE 2 PUFFS BY INHALATI ON FOUR TIMES A DAY NEEDED FOR SHORTNES S OF BREATH SHAKE WELL (FOR IMMEDIAT E RELIEF). Oct 14, 2023 2 Oct 14, 2024 [id number] D Mar 05, 2024 NALLUSAM Y,ALDO THI [place] [facility] RES[facility]ORY (INHAL ATION) ACTIVE 10/14/2024 [id number] 4 NALLUSAMY ,VASUMATH I 2023 2 [place] [facility] ALBUTEROL 90MCG/ACTUA T (CFC-F) INHL,ORAL,8 .5GM DOSE COUNTER ALBUTERO L 90MCG/AC TUAT (CFC-F) INHL,ORA L,8.5GM DOSE COUNTER Disconti nued INHALE 2 PUFFS BY INHALATI ON FOUR TIMES A DAY NEEDED FOR SHORTNES S OF BREATH SHAKE WELL (FOR IMMEDIAT E RELIEF). Sep 17, 2022 2 Sep 18, 2023 [id number] C Jun 20, 2023 NALLUSAM Y,ALDO THI [place] [facility] RESPIR ATORY (INHAL ATION) DISCONT INUED 09/18/2023 [id number] NALLUSAMY ,VASUMATH I 2022 2 [place] [facility] ALBUTEROL SO4 3MG/IPRATRO PIUM BR 0.5MG/3ML INHL,3ML ALBUTERO L SO4 3MG/IPRA TROPIUM BR 0.5MG/3M L INHL,3ML Active INHALE 3ML IN NEBULIZE R BY INHALATI ON EVERY 4 HOURS NEEDED FOR SHORTNES S OF BREATH Oct 14, 2023 60 Oct 14, 2024 [id number] C Mar 23, 2024 NALLUSAAlber [facility] RESPIR ATORY (INHAL ATION) ACTIVE 10/14/2024 [id number] 4 NALLUSAMY ,VASUMATH I 2023 60 [facility] ALBUTEROL SO4 3MG/IPRATRO PIUM BR 0.5MG/3ML INHL,3ML ALBUTERO L SO4 3MG/IPRA TROPIUM BR 0.5MG/3M L INHL,3ML Disconti nued INHALE 3ML IN NEBULIZE R BY INHALATI ON EVERY 4 HOURS NEEDED FOR SHORTNES S OF BREATH Sep 17, 2022 60 Sep 18, 2023 [id number] B Aug 18, 2023 NALLUSAM Y,VASUMA THI [facility] RESPIR ATORY (INHAL ATION) DISCONT INUED 09/18/2023 [id number] 4 NALLUSAMY ,FELYUMATH I 2022 60 [facility] APIXABAN 5MG TAB APIXABAN 5MG TAB Active TAKE ONE TABLET BY MOUTH EVERY 12 HOURS TO TREAT AND/OR PREVENT BLOOD CLOTS TO TREAT AND/OR PREVENT BLOOD CLOTS December 01, 2023 180 December 01, 2024 [id number] A Feb 20, 2024 Ben BERGER [facility] ORAL ACTIVE 12/01/2024 [id number] MAHENDRA BERGER 2023 180 [facility] APIXABAN 5MG TAB APIXABAN 5MG TAB Disconti nued TAKE ONE TABLET BY MOUTH EVERY 12 HOURS TO TREAT AND/OR PREVENT BLOOD CLOTS TO TREAT AND/OR PREVENT BLOOD CLOTS December 09, 2022 180 December 10, 2023 [id number] Aug 26, 2023 CHANNING GUTIERREZ [facility] ORAL DISCONT INUED 12/10/2023 [id number] KATTY GUTIERREZ 2022 180 [facility] BISACODYL 5MG TAB,EC BISACODY L 5MG TAB,EC TAKE TWO TABLETS BY MOUTH ONCE FOR COLON PREP FOR COLON PREP Dec 30, 2023 2 Jan 29, 2024 [id number] Dec 31, [address] [facility] ORAL 01/29/2024 [id number] [facility] CARBOXYMETH YLCELLULOSE NA 0.5% SOLN,OPH CARBOXYM ETHYLCEL LULOSE NA 0.5% SOLN,OPH Active INSTILL 1 DROP IN BOTH EYES FOUR TIMES A DAY FOR DRY EYES FOR DRY EYES December 01, 2023 30 December 01, 2024 [id number] Feb 06, 2024 Marquita GAMA [facility] OPHTHA LMIC ACTIVE 12/01/2024 [id number] JORDAN GAMA [facility] 2023 30 [place] [facility] CLEANSER,SK INTEGRITY SPRAY,TOP CLEANSER ,SKINTEG RITY SPRAY,TO P SPRAY TO AFFECTED AREA TOPICALL Y DIRECTED FOR WOUND CARE Jun 24, 2022 240 Jun 25, 2023 [id number] Feb 28, 2023 NALLUSAM Y,VASUMA THI [facility] TOPICA L 06/25/2023 [id number] NALLUSAMY ,VASUMATH I 2021 240 [facility] DICLOFENAC NA 1% GEL,TOP DICLOFEN AC NA 1% GEL,TOP APPLY 2 GRAMS TOPICALL Y TWO TIMES A DAY NEEDED FOR PAIN -USE DOSE CARD IN BOX TO MEASURE DOSE -MAXIMUM OF 32 GM PER DAY TO AFFECTED AREA FOR PAIN Feb 10, 2023 100 Feb 11, 2024 [id number] Feb 06, 2024 NALLUSAM Y,VASUMA THI [facility] TOPICA L 02/11/2024 [id number] 4 NALLUSAMY ,VASUMATH I 2022 100 [facility] DIMETHICONE 12.5% CREAM,TOP DIMETHIC ONE 12.5% CREAM,TO P APPLY AFFECTED AREA TOPICALL Y THREE TIMES A WEEK BARRIER FOR COCCYX ULCER May 26, 2023 120 Nov 07, 2023 [id number] Sep 18, 2023 EMILIANO PRICE L [facility] TOPICA L 11/07/2023 [id number] VANNESA PRICE L 2022 120 [facility] DOFETILIDE 250MCG CAP DOFETILI DE 250MCG CAP Active TAKE ONE CAPSULE BY MOUTH TWICE A DAY FOR ATRIAL FIBRILLA TION FOR ATRIAL FIBRILLA TION Jul 10, 2023 180 Jul 10, 2024 [id number] Mar 26, 2024 JONNIE VELARDE [facility] ORAL ACTIVE 07/10/2024 [id number] JESUS VELARDE L 2022 180 [facility] DOXYCYCLINE HYCLATE 100MG TAB DOXYCYCL INE HYCLATE 100MG TAB TAKE ONE TABLET BY MOUTH TWICE A DAY Bronchit is Bronchit is Jan 06, 2024 10 Feb 05, 2024 [id number] Jan 06, 2024 Miguelito BUCKLEY [facility] ORAL 02/05/2024 [id number] KEIRA BUCKLEY M 2023 10 [facility] EMPAGLIFLOZ IN 25MG TAB EMPAGLIF LOZIN 25MG TAB Active TAKE ONE-HALF TABLET BY MOUTH EVERY MORNING FOR HEART FAILURE FOR HEART FAILURE Jan 19, 2024 45 Jan 19, 2025 [id number] Apr 08, 2024 NALLUSAM Y,VASUMA THI [facility] ORAL ACTIVE 01/19/2025 [id number] 4 NALLUSAMY ,VASUMATH I 2023 45 [facility] EMPAGLIFLOZ IN 25MG TAB EMPAGLIF LOZIN 25MG TAB Disconti nued TAKE ONE-HALF TABLET BY MOUTH EVERY MORNING FOR HEART FAILURE FOR HEART FAILURE Feb 03, 2023 45 Feb 04, 2024 [id number] A Oct 21, 2023 NALLUSAM Y,FELYUMA THI [facility] ORAL DISCONT INUED 02/04/2024 [id number] 4 NALLUSAMY ,VASUMATH I 2022 45 [facility] FLUTICASONE PROPIONATE 50MCG/SPRAY SOLN,NASAL, 16GM FLUTICAS ONE PROPIONA TE 50MCG/SP RAY SOLN,IGNACIO AL,16GM Active SPRAY 2 SPRAYS IN EACH NOSTRIL EVERY DAY FOR NASAL DRIP Jun 02, 2023 3 Jun 03, 2024 [id number] C Feb 18, 2024 CLARI MAIN ONDA I [facility] NASAL ACTIVE 06/03/2024 [id number] 4 BENJAMIN MAIN NDA I 2022 3 [facility] FLUTICASONE PROPIONATE 50MCG/SPRAY SOLN,NASAL, 16GM FLUTICAS ONE PROPIONA TE 50MCG/SP RAY SOLN,IGNACIO AL,16GM Disconti nued SPRAY 2 SPRAYS IN EACH NOSTRIL EVERY DAY FOR NASAL DRIP May 24, 2022 3 May 27, 2023 [id number] B Mar 03, 2023 JOSE DAVIDRH ONDA I [facility] NASAL DISCONT INUED 05/27/2023 [id number] JOSE DAVID,BENJAMIN NDA I 2021 3 [facility] FUROSEMIDE 40MG TAB FUROSEMI DE 40MG TAB Active TAKE TWO TABLETS BY MOUTH EVERY MORNING AND TAKE ONE TABLET EVERY EVENING FOR EXCESS FLUID FOR EXCESS FLUID Feb 04, 2024 270 Feb 04, 2025 [id number] Feb 06, 2024 [facility] 02/04/2025 [id number] JACOB VIRGEN 2023 270 [place] [facility] FUROSEMIDE 40MG TAB FUROSEMI DE 40MG TAB Disconti nued TAKE TWO TABLETS BY MOUTH EVERY MORNING FOR EXCESS FLUID FOR WEIGHT GAIN OR WORSENIN G HEART FAILURE SYMPTOMS FOR EXCESS FLUID May 02, 2023 180 May 02, 2024 [id number] December 07, 2023 [facility] DISCONT INUED (EDIT) 05/02/2024 [id number] JACOB VIRGEN 2022 180 [place] [facility] FUROSEMIDE 40MG TAB FUROSEMI DE 40MG TAB Disconti nued TAKE ONE TABLET BY MOUTH EVERY DAY AND TAKE ONE TABLET EVERY DAY NEEDED FOR WEIGHT GAIN OR WORSENIN G HEART FAILURE SYMPTOMS FOR EXCESS FLUID Dec 27, 2022 180 Dec 28, 2023 [id number] Mar 21, 2023 [facility] OR[facility] DISCONT INUED (EDIT) 12/28/2023 [id number] JACOB VIRGEN 2022 180 [place] [facility] GABAPENTIN 400MG CAP GABAPENT IN 400MG CAP Active TAKE ONE CAPSULE BY MOUTH FOUR TIMES A DAY FOR PAIN AND NUMBNESS FOR PAIN AND NUMBNESS Aug 13, 2023 360 Aug 13, 2024 [id number] November 28, 2023 NALLUSAM Y,VASUMA THI [facility] ORAL ACTIVE 08/13/2024 [id number] NALLUSAMY ,VASUMATH I 2023 360 [facility] GUAIFENESIN 200MG TAB GUAIFENE SIN 200MG TAB Active TAKE TWO TABLETS BY MOUTH THREE TIMES A DAY FOR COPD/COU GH/MUCUS Sep 01, 2023 600 Sep 01, 2024 [id number] Apr 08, 2024 [facility]AM Y,ALDO [facility] ORAL ACTIVE 09/01/2024 [id number] NALLUSAMY ,VASUMATH I 2023 600 [facility] HYDROPHILIC (EQV AQUAPHOR) OINT,TOP HYDROPHI LIC (EQV AQUAPHOR ) OINT,TOP APPLY SMALL AMOUNT TOPICALL Y THREE TIMES A WEEK FOR DRY SKIN FOR DRY SKIN Nov 06, 2022 454 Nov 07, 2023 [id number] Oct 17, 2023 DEEEMILIANO L [facility] TOPICA L 11/07/2023 [id number] DEEVANNESA L 2022 454 [place] [facility] LIDOCAINE 5% PATCH LIDOCAIN E 5% PATCH Active APPLY 3 PATCHES TOPICALL Y EVERY DAY FOR PAIN. WEAR FOR ONLY 12 HOURS THEN REMOVE FOR 12 HOURS. ONE PATCH FOR EACH HIP AND ONE PATCH FOR LOW BACK Oct 05, 2023 270 Oct 05, 2024 [id number] Feb 06, 2024 [facility] TOPICA L ACTIVE 10/05/2024 [id number] NALLUSAMY ,VASUMATH I 2023 270 [facility] LORATADINE 10MG TAB LORATADI NE 10MG TAB TAKE ONE TABLET BY MOUTH EVERY DAY NEEDED FOR ALLERGIE S Jun 20, 2022 90 Jun 21, 2023 [id number] B May 12, 2023 JOSE DAVID,RH ONDA I [facility] ORAL 06/21/2023 [id number] 3 JOSE DAVIDRHO NDA I 2021 90 [facility] LORAZEPAM 1MG TAB LORAZEPA M 1MG TAB TAKE ONE TABLET BY MOUTH DIRECTED ONE HOUR PRIOR TO VISIT AND ONE TABLET DURING THE VISIT FOR MRI. FOR CLAUSTRO PHOBIA FOR ANXIETY Jan 01, 2024 2 Jan 31, 2024 [id number] Jan 01, 2024 TERRENCE RANDOLPH [facility] ORAL 01/31/2024 [id number] TERRENCE RANDOLPH 2023 2 [place] [facility] LOSARTAN 50MG TAB LOSARTAN 50MG TAB Active TAKE ONE TABLET BY MOUTH EVERY MORNING FOR HEART FAILURE FOR HEART FAILURE Oct 20, 2023 90 Oct 20, 2024 [id number] Jan 19, 2024 NALLUSAM Y,VASUMA THI [facility] ORAL ACTIVE 10/20/2024 [id number] 4 NALLUSAMY ,VASUMATH I 2023 90 [facility] LOSARTAN 50MG TAB LOSARTAN 50MG TAB Disconti nued TAKE ONE TABLET BY MOUTH EVERY MORNING FOR HEART FAILURE FOR HEART FAILURE Nov 06, 2022 90 Nov 07, 2023 [id number] Jul 24, 2023 EMILIANO PRICE [facility] ORAL DISCONT INUED 11/07/2023 [id number] VANNESA PRICE 2022 90 [facility] METOPROLOL SUCCINATE 100MG TAB,SA METOPROL OL SUCCINAT E 100MG TAB,SA Disconti nued TAKE ONE TABLET BY MOUTH TWICE A DAY FOR ATRIAL FIBRILLA TION FOR ATRIAL FIBRILLA TION Feb 28, 2023 180 Feb 29, 2024 [id number] May 19, 2023 JACOB POWER [facility] ORAL DISCONT INUED 02/29/2024 [id number] JACOB VIRGEN 2022 180 [facility] METOPROLOL SUCCINATE 25MG TAB,SA METOPROL OL SUCCINAT E 25MG TAB,SA Disconti nued TAKE THREE TABLETS BY MOUTH TWICE A DAY FOR ATRIAL FIBRILLA TION FOR ATRIAL FIBRILLA TION Jan 17, 2023 540 Jan 18, 2024 [id number] Mar 21, 2023 JACOB POWER [facility] ORAL DISCONT INUED (EDIT) 01/18/2024 [id number] JACOB VIRGEN 2022 540 [facility] METOPROLOL SUCCINATE 25MG TAB,SA METOPROL OL SUCCINAT E 25MG TAB,SA Disconti nued TAKE THREE TABLETS BY MOUTH TWICE A DAY FOR ATRIAL FIBRILLA TION REFILLS PER PCP FOR ATRIAL FIBRILLA TION Dec 21, 2022 540 Dec 22, 2023 [id number] Dec 25, 2022 HITESH HOLGUIN [facility] ORAL DISCONT INUED (EDIT) 12/22/2023 [id number] HITESH HOLGUIN 2022 540 [facility] METOPROLOL SUCCINATE 50MG TAB,SA METOPROL OL SUCCINAT E 50MG TAB,SA Disconti nued TAKE ONE TABLET BY MOUTH TWICE A DAY FOR ATRIAL FIBRILLA TION FOR ATRIAL FIBRILLA TION Dec 27, 2022 180 Dec 28, 2023 [id number] Dec 30, 2022 JACOB POWER [facility] ORAL DISCONT INUED (EDIT) 12/28/2023 [id number] JACOB VIRGEN 2022 180 [facility] MINERAL OIL,LIGHT/P ETROLATUM (PF) OINT,OPH MINERAL OIL,LIGH T/PETROL ATUM (PF) OINT,OPH Active APPLY A SMALL AMOUNT TO BOTH EYES AT BEDTIME FOR DRY EYES FOR DRY EYES December 01, 2023 3 December 01, 2024 [id number] Feb 06, 2024 Marquita GAMA [facility] OPHTHA LMIC ACTIVE 12/01/2024 [id number] JORDAN GAMA [facility] 2023 3 [facility] MUPIROCIN 2% OINT,TOP MUPIROCI N 2% OINT,TOP APPLY THIN LAYER TOPICALL Y TWICE A DAY *INDICAT ION: INFECTED FOOT ULCER* TO AFFECTED AREA PHARMACY CONFIRMA TION #: [id number] APPLY TO OPEN SORES AFTER GENTLY WASHING WITH VASHE SOAKS OR DILUTE VINEGAR SOAKS. APPLY ADAPTIC DRESSING OVER AND WRAP WITH KERLIX *INDICAT ION: INFECTED FOOT ULCER* TO AFFECTED AREA PHARMACY CONFIRMA TION #: [id number] APPLY TO OPEN SORES AFTER GENTLY WASHING WITH VASHE SOAKS OR DILUTE VINEGAR SOAKS. APPLY ADAPTIC DRESSING OVER AND WRAP WITH KERLIX Jun 07, 2022 44 Jun 08, 2023 [id number] Mar 19, 2023 DANISHA SOLER [facility] TOPICA L 06/08/2023 [id number] Marquita SOLER 2021 44 [facility] NYSTATIN [id number] M CREAM,TOP NYSTATIN 111268TH T/GM CREAM,TO P Active APPLY THIN LAYER TOPICALL Y TWICE A DAY FUNGAL INFECTIO N GRANT ADMINISTRATOR AL USE ONLY APPLY TO PANNUS FUNGAL INFECTIO N Jul 10, 2023 30 Jul 10, 2024 [id number] Sep 28, 2023 JONNIE VELARDE [facility] TOPICA L ACTIVE 07/10/2024 [id number] 4 SYDJESUS ARET L 2022 30 [facility] OLODATEROL 2.5MCG/TIOT ROPIUM 2.5MCG/ACTU AT INHL,ORAL,6 0D,4GM OLODATER OL 2.5MCG/T IOTROPIU M 2.5MCG/A CTUAT INHL,ORA L,60D,4G M INHALE 2 PUFFS BY INHALATI ON EVERY DAY TO PREVENT TROUBLE BREATHIN G Jun 07, 2022 2 Jun 08, 2023 [id number] Mar 31, 2023 DANISHA SOLER [facility] RESPIR ATORY (INHAL ATION) 06/08/2023 [id number] Marquita SOLER 2021 2 [facility] PEG-3350/EL ECTROLYTES PWDR PEG-3350 /ELECTRO LYTES PWDR TAKE ONE CONTAINE R BY MOUTH DIRECTED FOR COLON PREP FOR COLON PREP Dec 30, 2023 1 Jan 29, 2024 [id number] Dec 31, [address] [facility] ORAL 01/29/2024 [id number] SRUTHI VERAS P [address] [facility] POLYETHYLEN E GLYCOL 3350 PWDR,ORAL POLYETHY KAT GLYCOL 3350 PWDR,ORA L Active TAKE 17 GRAMS BY MOUTH EVERY DAY NEEDED FOR CONSTIPA TION FOR CONSTIPA TION Nov 05, 2023 510 Nov 05, 2024 [id number] Nov 05, 2023 N[place] Y,VASUMA [facility]I [place] [facility]IVE 11/05/2024 [id number] 4 NALLUSAMY ,VASUMATH I 2023 510 [facility] POTASSIUM CHLORIDE 20MEQ TAB,SA (DISPERSIBL E) POTASSIU M CHLORIDE 20MEQ TAB,SA (DISPERS IBLE) Active TAKE TWO TABLETS BY MOUTH TWICE A DAY FOR POTASSIU M SUPPLEME NT FOR POTASSIU M SUPPLEME NT Jul 10, 2023 360 Jul 10, 2024 [id number] Mar 26, 2024 JONNIE VELARDE [facility] ORAL ACTIVE 07/10/2024 [id number] JESUS VELARDE 2022 360 [facility] POTASSIUM CHLORIDE 20MEQ TAB,SA (DISPERSIBL E) POTASSIU M CHLORIDE 20MEQ TAB,SA (DISPERS IBLE) Disconti nued TAKE ONE TABLET BY MOUTH EVERY DAY FOR POTASSIU M SUPPLEME NT FOR POTASSIU M SUPPLEME NT Feb 28, 2023 90 Feb 29, 2024 [id number] May 19, 2023 JACOB POWER [facility] ORAL DISCONT INUED (EDIT) 02/29/2024 [id number] JACOB VIRGEN 2022 90 [facility] PREDNISONE 20MG TAB PREDNISO NE 20MG TAB TAKE TWO TABLETS BY MOUTH EVERY MORNING FOR SEVERE WORSENIN G OF SHORTNES S OF BREATH COPD Jan 06, 2024 10 Feb 05, 2024 [id number] Jan 06, 2024 Miguelito BUCKLEY [facility] ORAL 02/05/2024 [id number] 4 KEIRA BUCKLEY 2023 10 [facility] SEMAGLUTIDE 0.25MG/0.37 5ML INJ,SOLN,PE N,3ML SEMAGLUT FERMIN 0.25MG/0 .375ML INJ,SOLN ,PEN,3ML Disconti nued INJECT 0.5MG UNDER THE SKIN EVERY WEEK FOR DIABETES FOR DIABETES Feb 03, 2023 1 Feb 04, 2024 [id number] Feb 04, 2023 URI CRYSTAL [facility] SUBCUT ANEOUS DISCONT INUED (EDIT) 02/04/2024 [id number] AJ CRYSTAL 2022 1 [facility] SEMAGLUTIDE 0.25MG/0.37 5ML INJ,SOLN,PE N,3ML SEMAGLUT FERMIN 0.25MG/0 .375ML INJ,SOLN ,PEN,3ML Disconti nued INJECT 0.25MG UNDER THE SKIN EVERY WEEK FOR 4 WEEKS, THEN INJECT 0.5MG EVERY WEEK FOR WEIGHT LOSS Jan 03, 2023 1 Jan 04, 2024 [id number] Jan 09, 2023 ROSANA PARRA H [facility] SUBCUT ANEOUS DISCONT INUED (EDIT) 01/04/2024 [id number] MAINOR PARRA 2022 1 [facility] SEMAGLUTIDE 1MG/0.75ML INJ,SOLN,PE N,3ML SEMAGLUT FERMIN 1MG/0.75 ML INJ,SOLN ,PEN,3ML Disconti nued INJECT 1MG UNDER THE SKIN EVERY WEEK FOR DIABETES FOR DIABETES Mar 07, 2023 1 Mar 07, 2024 [id number] Aug 18, 2023 URI CRYSTAL [facility] SUBCUT ANEOUS DISCONT INUED (EDIT) 03/07/2024 [id number] AJ CRYSTAL 2022 1 [facility] SEMAGLUTIDE 2MG/0.75ML INJ,SOLN,PE N,3ML SEMAGLUT FERMIN 2MG/0.75 ML INJ,SOLN ,PEN,3ML Active INJECT 2MG UNDER THE SKIN EVERY WEEK FOR DIABETES FOR DIABETES Feb 11, 2024 1 Feb 11, 2025 [id number] Mar 23, 2024 DELMISIMABELARDO KITCHEN [facility] SUBCUT ANEOUS ACTIVE 02/11/2025 [id number] 4 KLIMOVIFRANCINE DIAZ F 2023 1 [facility] SEMAGLUTIDE 2MG/0.75ML INJ,SOLN,PE N,3ML SEMAGLUT FERMIN 2MG/0.75 ML INJ,SOLN ,PEN,3ML Disconti nued INJECT 2MG UNDER THE SKIN EVERY WEEK FOR DIABETES FOR DIABETES Sep 17, 2023 1 Sep 17, 2024 [id number] Feb 03, 2024 ROBBY BOWMAN [facility] SUBCUT ANEOUS DISCONT INUED 09/17/2024 [id number] SHAWNA BOWMAN 2023 1 [facility] SPIRONOLACT ONE 25MG TAB SPIRONOL ACTONE 25MG TAB Active TAKE ONE TABLET BY MOUTH EVERY DAY FOR HEART FAILURE FOR HEART FAILURE May 20, 2023 90 May 20, 2024 [id number] Feb 05, 2024 JACOB POWER [facility] ORAL ACTIVE 05/20/2024 [id number] JACOB VIRGEN 2022 90 [facility] TAZAROTENE 0.1% CREAM,TOP TAZAROTE NE 0.1% CREAM,TO P APPLY THIN LAYER TOPICALL Y AT BEDTIME TO THE FEET WITH THE 40% UREA CREAM, UNDER OCCLUSIO N DIRECTED PALMOPLA NTAR PSORIASI S Feb 27, 2023 60 Feb 28, 2024 [id number] December 08, 2023 DARCY TOMLINSON AEL V [facility] TOPICA L 02/28/2024 [id number] DARCY MEDEROSAE L V 2022 60 [facility] TRAZODONE HCL 50MG TAB TRAZODON E HCL 50MG TAB Active TAKE ONE TABLET BY MOUTH AT BEDTIME FOR SLEEP FOR SLEEP Sep 18, 2023 90 Sep 18, 2024 [id number] Jan 19, 2024 NALLUSAM Y,ALDO THI [facility] ORAL ACTIVE 09/18/2024 [id number] 4 NALLUSAMY ,VASUMATH I 2023 90 [facility] TRAZODONE HCL 50MG TAB TRAZODON E HCL 50MG TAB Disconti nued TAKE ONE TABLET BY MOUTH AT BEDTIME FOR SLEEP FOR SLEEP Sep 17, 2022 90 Sep 18, 2023 [id number] Jul 16, 2023 NALLUSAM Y,VASUMA THI [facility] ORAL DISCONT INUED 09/18/2023 [id number] NALLUSAMY ,VASUMATH I 2022 90 [facility] TRIAMCINOLO NE ACETONIDE 0.1% OINT,TOP TRIAMCIN OLONE ACETONID E 0.1% OINT,TOP Disconti nued APPLY THIN LAYER TOPICALL Y TWICE A DAY AVOID FACE,LEIA IN and ARMPITS *FOR EXTERNAL USE ONLY APPLY TO INTACT SKIN ON LOWER LEGS AFTER DILUTE VINEGAR OR VASHE SOAKS. WRAP WITH KERLIX. AVOID FACE,LEIA IN and ARMPITS *FOR EXTERNAL USE ONLY APPLY TO INTACT SKIN ON LOWER LEGS AFTER DILUTE VINEGAR OR VASHE SOAKS. WRAP WITH KERLIX. Jun 07, 2022 454 Jun 08, 2023 [id number] Jan 25, 2023 DANISHA SOLER [facility] TOPICA L DISCONT INUED 06/08/2023 [id number] Marquita SOLER 2021 454 [facility] TRIAMCINOLO NE ACETONIDE 0.1% OINT,TOP TRIAMCIN OLONE ACETONID E 0.1% OINT,TOP APPLY THIN LAYER TOPICALL Y TWICE A DAY AVOID FACE,LEIA IN and ARMPITS *FOR EXTERNAL USE ONLY APPLY TO INTACT SKIN ON LOWER LEGS AFTER DILUTE VINEGAR OR VASHE SOAKS. WRAP WITH KERLIX. AVOID FACE,LEIA IN and ARMPITS *FOR EXTERNAL USE ONLY APPLY TO INTACT SKIN ON LOWER LEGS AFTER DILUTE VINEGAR OR VASHE SOAKS. WRAP WITH KERLIX. Feb 27, 2023 454 Feb 28, 2024 [id number] Jan 19, 2024 DARCY TOMLINSON V [facility] TOPICA L 02/28/2024 [id number] DARCY MEDEROSAE L V 2022 454 [facility] UREA 40% CREAM,TOP UREA 40% CREAM,TO P Active APPLY THIN LAYER TOPICALL Y EVERY DAY DIRECTED FOR THICK SKIN Feb 27, 2024 180 Feb 27, 2025 [id number] D Feb 27, 2024 NALLUSAM Y,VASUMA THI [facility] TOPICA L ACTIVE 02/27/2025 [id number] 4 NALLUSAMY ,VASUMATH I 2023 180 [facility] UREA 40% CREAM,TOP UREA 40% CREAM,TO P Disconti nued APPLY THIN LAYER TOPICALL Y EVERY DAY DIRECTED FOR THICK SKIN Feb 05, 2023 180 Feb 07, 2024 [id number] C Sep 01, 2023 PAT HELM [facility] TOPICA L DISCONT INUED 02/07/2024 [id number] JAIDA HELM 2022 180 [facility] UREA 40% CREAM,TOP UREA 40% CREAM,TO P Disconti nued APPLY THIN LAYER TOPICALL Y EVERY DAY DIRECTED FOR THICK SKIN Feb 28, 2022 180 Mar 01, 2023 [id number] Jan 07, 2023 PAT HELM [facility] TOPICA L DISCONT INUED 03/01/2023 [id number] 3 JAIDA HELM IEL J 2021 180 [facility] ALEJANDRO Campo APPLY THIN LAYER TOPICALL Y EVERY DAY IDEALLY WITHIN 3 MINUTES AFTER BATH OR SHOWER. TO ALL AREAS OF SKIN FOR MOISTURI ZER FOR DRY SKIN DRY SKIN Feb 27, 2023 454 Feb 28, 2024 [id number] Aug 18, 2023 DARCY TOMLINSON [facility] TOPICA L 02/28/2024 [id number] JAMEEROBBYJOHNNYROXANNA PACE L V 2022 454 [facility] VASHE WOUND THERAPY SOLN,TOP VASHE WOUND THERAPY SOLN,TOP APPLY DIRECTED TOPICALL Y DIRECTED SOAK THE AFFECTED AREA FOR 5 MINUTES WITH THE VASHE-MO ISTENED GAUZE, THEN USE THE SAME GAUZE TO GENTLY EXFOLIAT E THE WOUND BASE. SOAK THE AFFECTED AREA FOR 5 MINUTES WITH THE VASHE-MO ISTENED GAUZE, THEN USE THE SAME GAUZE TO GENTLY EXFOLIAT E THE WOUND BASE. Jun 07, 2022 250 Jun 08, 2023 [id number] Apr 01, 2023 DANISHA SOLER [facility] TOPICA L 06/08/2023 [id number] Marquita SOLER 2021 250 [facility] VITAMIN A/VITAMIN D OINT,TOP VITAMIN A/VITAMI N D OINT,TOP APPLY LIBERALL Y TO GROIN AND BUTTOCKS TOPICALL Y DIRECTED INTERTRI GO INTERTRI GO Feb 25, 2023 480 Feb 26, 2024 [id number] Sep 16, 2023 NALLUSAM Y,VASUMA THI [facility] TOPICA L 02/26/2024 [id number] 4 NALLUSAMY ,VASUMATH I 2022 480 [facility] ZINC OXIDE 20% OINT,TOP ZINC OXIDE 20% OINT,TOP Active APPLY SMALL AMOUNT TOPICALL Y THREE TIMES A WEEK NEEDED FOR WOUND PREVENTI ON FOR WOUND PREVENTI ON Sep 25, 2023 60 Sep 26, 2024 [id number] Feb 10, 2024 NALLUSAM Y,VASUMA THI [facility] TOPICA L ACTIVE 09/26/2024 [id number] 4 NALLUSAMY ,VASUMATH I 2023 60 [facility] Immunizations Combined list of available immunizations from the Department of Defense and Veterans Affairs facilities. Immunization Series Date Given Administered By Site Reaction Lot Number CVX Code Drug Winder Fixer Status Comments Source TDAP 04/17/ 2024 GEBREKIRSTOS, SWAPNIL E LEFT DELTO ID [id number] 115 complet ed [facility] INFLUENZA VACCINE, QUADRIVALENT, ADJUVANTED 2021 205 complet ed [facility] INFLUENZA VACCINE, QUADRIVALENT, ADJUVANTED 2021 205 complet ed [facility] INFLUENZA, INJECTABLE, QUADRIVALENT, PRESERVATIVE FREE 2020 150 complet ed [facility] COVID-19 (PFIZER), MRNA, LNP-S, PF, 30 MCG/0.3 ML DOSE 2 2020 208 complet ed PFR; [id number]; 1 [facility] COVID-19 (PFIZER), MRNA, LNP-S, PF, 30 MCG/0.3 ML DOSE 1 2020 208 complet ed PFR; [id number]; 1 [facility] ZOSTER RECOMBINANT 2 2020 187 complet ed [facility] INFLUENZA, INJECTABLE, QUADRIVALENT, PRESERVATIVE FREE 2019 150 complet ed [facility] PNEUMOCOCCAL POLYSACCHARID E PPV23 2019 33 complet ed [employer], [id number], 02 Sep 2021 [facility] ZOSTER RECOMBINANT 1 2019 187 complet ed [facility] TDAP 2013 115 complet ed [facility] TD(ADULT) UNSPECIFIED FORMULATION 2010 139 complet ed [facility] Results Combined list of recent chemistry, hematology and other laboratory results from Department of Defense and Veterans Affairs, ranging from 15 months to all on record, depending upon the facility. Order Name Results Value Reference Range Date Interpretation Specimen Comments Source BASIC METABOLI C PANEL+MG CREATININE [MASS/VOLU ME] IN SERUM OR PLASMA 1.4 mg/dL 0.7 - 1.2 02/11 H Specimen Type: PLASMA No comment entered. Ordering Provider: Desi VIRGEN Report Released Date/Time: Feb 04, 2024 02:58 PM Reporting Lab: [facility] [address] Performing Lab: [facility] [address] [facility] BASIC METABOLI C PANEL+MG UREA NITROGEN [MASS/VOLU ME] IN SERUM OR PLASMA 21 mg/dL 8 - 26 02/11 Specimen Type: PLASMA No comment entered. Ordering Provider: Desi VIRGEN Report Released Date/Time: Feb 04, 2024 02:58 PM Reporting Lab: [facility] [address] Performing Lab: [facility] [address] [place] [facility] BASIC METABOLI C PANEL+MG GLUCOSE [MASS/VOLU ME] IN SERUM OR PLASMA 135 mg/dL 70 - 100 02/11 H Specimen Type: PLASMA No comment entered. Ordering Provider: Desi VIRGEN Report Released Date/Time: Feb 04, 2024 02:58 PM Reporting Lab: [facility] [address] Performing Lab: [facility] [address] [place] [facility] BASIC METABOLI C PANEL+MG SODIUM [MOLES/VOL UME] IN SERUM OR PLASMA 136 mmol/L 136 - 145 02/11 Specimen Type: PLASMA No comment entered. Ordering Provider: Desi VIRGEN Report Released Date/Time: Feb 04, 2024 02:58 PM Reporting Lab: [facility] [address] Performing Lab: [facility] [address] [place] [facility] BASIC METABOLI C PANEL+MG POTASSIUM [MOLES/VOL UME] IN SERUM OR PLASMA 4.0 mmol/L 3.5 - 5.1 02/11 Specimen Type: PLASMA No comment entered. Ordering Provider: Desi VIRGEN Report Released Date/Time: Feb 04, 2024 02:58 PM Reporting Lab: [facility] [address] Performing Lab: [facility] [address] [place] [facility] BASIC METABOLI C PANEL+MG CHLORIDE [MOLES/VOL UME] IN SERUM OR PLASMA 100 mmol/L 98 - 107 02/11 Specimen Type: PLASMA No comment entered. Ordering Provider: Desi VIRGEN Report Released Date/Time: Feb 04, 2024 02:58 PM Reporting Lab: [facility] [address] Performing Lab: [facility] [address] [place] [facility] BASIC METABOLI C PANEL+MG CARBON DIOXIDE, TOTAL [MOLES/VOL UME] IN SERUM OR PLASMA 25 mmol/L 22 - 29 02/11 Specimen Type: PLASMA No comment entered. Ordering Provider: Desi VIRGEN Report Released Date/Time: Feb 04, 2024 02:58 PM Reporting Lab: [facility] [address] Performing Lab: [facility] [address] [place] [facility] BASIC METABOLI C PANEL+MG CALCIUM [MASS/VOLU ME] IN SERUM OR PLASMA 9.3 mg/dL 8.4 - 10.2 02/11 Specimen Type: PLASMA No comment entered. Ordering Provider: Desi VIRGEN Report Released Date/Time: Feb 04, 2024 02:58 PM Reporting Lab: [facility] [address] Performing Lab: [facility] [address] [place] [facility] BASIC METABOLI C PANEL+MG MAGNESIUM [MASS/VOLU ME] IN SERUM OR PLASMA 2.2 mg/dL 1.6 - 2.6 02/11 Specimen Type: PLASMA No comment entered. Ordering Provider: Desi VIRGEN Report Released Date/Time: Feb 04, 2024 02:58 PM Reporting Lab: [facility] [address] Performing Lab: [facility] [address] [place] [facility] BASIC METABOLI C PANEL+MG ANION GAP IN SERUM OR PLASMA 11 mmol/L 5 - 15 02/11 Specimen Type: PLASMA No comment entered. Ordering Provider: Desi VIRGEN Report Released Date/Time: Feb 04, 2024 02:58 PM Reporting Lab: [facility] [address] Performing Lab: [facility] [address] [place] [facility] BASIC METABOLI C PANEL+MG GLOMERULAR FILTRATION RATE/1.73 SQ M.PREDICTE D [VOLUME RATE/AREA] IN SERUM, PLASMA OR BLOOD BY CREATININE -BASED FORMULA (CKD-EPI 2020) 53 60 02/11 L Specimen Type: PLASMA No comment entered. Ordering Provider: Desi VIRGEN Report Released Date/Time: Feb 04, 2024 02:58 PM Reporting Lab: [facility] [address] Performing Lab: [facility] [address] [place] [facility] BNP NATRIURETI C PEPTIDE B [MASS/VOLU ME] IN SERUM OR PLASMA 23 pg/mL <99 - 99 02/03 Specimen Type: PLASMA No comment entered. Ordering Provider: Desi VIRGEN Report Released Date/Time: Aug 13, 2023 11:38 AM Reporting Lab: [facility] [address] Performing Lab: [facility] [address] [place] [facility] BASIC METABOLI C PANEL+MG CREATININE [MASS/VOLU ME] IN SERUM OR PLASMA 1.2 mg/dL 0.7 - 1.2 02/03 Specimen Type: PLASMA No comment entered. Ordering Provider: Desi VIRGEN Report Released Date/Time: Aug 13, 2023 11:38 AM Reporting Lab: [facility] [address] Performing Lab: [facility] [address] [place] [facility] BASIC METABOLI C PANEL+MG UREA NITROGEN [MASS/VOLU ME] IN SERUM OR PLASMA 18 mg/dL 8 - 26 02/03 Specimen Type: PLASMA No comment entered. Ordering Provider: Desi VIRGEN Report Released Date/Time: Aug 13, 2023 11:38 AM Reporting Lab: [facility] [address] Performing Lab: [facility] [address] [place] [facility] BASIC METABOLI C PANEL+MG GLUCOSE [MASS/VOLU ME] IN SERUM OR PLASMA 102 mg/dL 70 - 100 02/03 H Specimen Type: PLASMA No comment entered. Ordering Provider: Desi VIRGEN Report Released Date/Time: Aug 13, 2023 11:38 AM Reporting Lab: [facility] [address] Performing Lab: [facility] [address] [place] [facility] BASIC METABOLI C PANEL+MG SODIUM [MOLES/VOL UME] IN SERUM OR PLASMA 140 mmol/L 136 - 145 02/03 Specimen Type: PLASMA No comment entered. Ordering Provider: Desi VIRGEN Report Released Date/Time: Aug 13, 2023 11:38 AM Reporting Lab: [facility] [address] Performing Lab: [facility] [address] [place] [facility] BASIC METABOLI C PANEL+MG POTASSIUM [MOLES/VOL UME] IN SERUM OR PLASMA 4.1 mmol/L 3.5 - 5.1 02/03 Specimen Type: PLASMA No comment entered. Ordering Provider: Desi VIRGEN Report Released Date/Time: Aug 13, 2023 11:38 AM Reporting Lab: [facility] [address] Performing Lab: [facility] [address] [place] [facility] BASIC METABOLI C PANEL+MG CHLORIDE [MOLES/VOL UME] IN SERUM OR PLASMA 102 mmol/L 98 - 107 02/03 Specimen Type: PLASMA No comment entered. Ordering Provider: Desi VIRGEN Report Released Date/Time: Aug 13, 2023 11:38 AM Reporting Lab: [facility] [address] Performing Lab: [facility] [address] [place] [facility] BASIC METABOLI C PANEL+MG CARBON DIOXIDE, TOTAL [MOLES/VOL UME] IN SERUM OR PLASMA 27 mmol/L 22 - 29 02/03 Specimen Type: PLASMA No comment entered. Ordering Provider: Desi VIRGEN Report Released Date/Time: Aug 13, 2023 11:38 AM Reporting Lab: [facility] [address] Performing Lab: [facility] [address] [place] [facility] BASIC METABOLI C PANEL+MG CALCIUM [MASS/VOLU ME] IN SERUM OR PLASMA 10.0 mg/dL 8.4 - 10.2 02/03 Specimen Type: PLASMA No comment entered. Ordering Provider: Desi VIRGEN Report Released Date/Time: Aug 13, 2023 11:38 AM Reporting Lab: [facility] [address] Performing Lab: [facility] [address] [place] [facility] BASIC METABOLI C PANEL+MG MAGNESIUM [MASS/VOLU ME] IN SERUM OR PLASMA 2.3 mg/dL 1.6 - 2.6 02/03 Specimen Type: PLASMA No comment entered. Ordering Provider: Desi VIRGEN Report Released Date/Time: Aug 13, 2023 11:38 AM Reporting Lab: [facility] [address] Performing Lab: [facility] [address] [place] [facility] BASIC METABOLI C PANEL+MG ANION GAP IN SERUM OR PLASMA 11 mmol/L 5 - 15 02/03 Specimen Type: PLASMA No comment entered. Ordering Provider: Desi VIRGEN Report Released Date/Time: Aug 13, 2023 11:38 AM Reporting Lab: [facility] [address] Performing Lab: [facility] [address] [place] [facility] BASIC METABOLI C PANEL+MG GLOMERULAR FILTRATION RATE/1.73 SQ M.PREDICTE D [VOLUME RATE/AREA] IN SERUM, PLASMA OR BLOOD BY CREATININE -BASED FORMULA (CKD-EPI 2020) 63 60 02/03 Specimen Type: PLASMA No comment entered. Ordering Provider: Desi VIRGEN Report Released Date/Time: Aug 13, 2023 11:38 AM Reporting Lab: [facility] [address] Performing Lab: [facility] [phone] [place] [facility] COVID-19 DIAGNOST IC PANEL (BIOFIRE ) CHLAMYDOPH KRISTY PNEUMONIAE DNA [PRESENCE] IN NASOPHARYN X BY CORTES WITH NON-PROBE DETECTION NOT DETECTED 01/05 Specimen Type: NASOPHARYNG EAL Comment: Biofirhomero Fuchs ([phone]) Ordering Provider: CHERISE BUCKLEY Report Released Date/Time: Jan 06, 2024 03:22 PM Reporting Lab: [facility] [address] Performing Lab: [facility] [address] [place] [facility] COVID-19 DIAGNOST IC PANEL (BIOFIRE ) MYCOPLASMA PNEUMONIAE [PRESENCE] IN SPECIMEN BY ORGANISM SPECIFIC CULTURE NOT DETECTED 01/05 Specimen Type: NASOPHARYNG EAL Comment: Basilia Fuchs ([phone]) Ordering Provider: CHERISE BUCKLEY Report Released Date/Time: Jan 06, 2024 03:22 PM Reporting Lab: [facility] [address] Performing Lab: [facility] [phone] [place] [facility] COVID-19 DIAGNOST IC PANEL (BIOFIRE ) ADENOVIRUS DNA [PRESENCE] IN NASOPHARYN X BY CORTES WITH NON-PROBE DETECTION NOT DETECTED 01/05 Specimen Type: NASOPHARYNG EAL Comment: Basilia Fuchs ([phone]) Ordering Provider: CHERISE BUCKLEY Report Released Date/Time: Jan 06, 2024 03:22 PM Reporting Lab: [facility] [address] Performing Lab: [facility] [address] [place] [facility] COVID-19 DIAGNOST IC PANEL (BIOFIRE ) HUMAN METAPNEUMO VIRUS RNA [PRESENCE] IN NASOPHARYN X BY CORTES WITH NON-PROBE DETECTION NOT DETECTED 01/05 Specimen Type: NASOPHARYNG EAL Comment: Basilia Fuchs ([phone]) Ordering Provider: CHERISE BUCKLEY Report Released Date/Time: Jan 06, 2024 03:22 PM Reporting Lab: [facility] [address] Performing Lab: [facility] [address] [place] [facility] COVID-19 DIAGNOST IC PANEL (BIOFIRE ) RHINOVIRUS +ENTEROVIR US RNA [PRESENCE] IN NASOPHARYN X BY CORTES WITH NON-PROBE DETECTION NOT DETECTED 01/05 Specimen Type: NASOPHARYNG EAL Comment: Basilia Fuchs ([phone]) Ordering Provider: CHERISE BUCKLEY Report Released Date/Time: Jan 06, 2024 03:22 PM Reporting Lab: [facility] [address] Performing Lab: [facility] [address] [place] [facility] COVID-19 DIAGNOST IC PANEL (BIOFIRE ) INFLUENZA VIRUS A RNA [PRESENCE] IN NASOPHARYN X BY CORTES WITH NON-PROBE DETECTION NOT DETECTED 01/05 Specimen Type: NASOPHARYNG EAL Comment: Basilia Fuchs ([phone]) Ordering Provider: CHERISE BUCKLEY Report Released Date/Time: Jan 06, 2024 03:22 PM Reporting Lab: [facility] [address] Performing Lab: [facility] [address] [place] [facility] COVID-19 DIAGNOST IC PANEL (BIOFIRE ) INFLUENZA VIRUS B RNA [PRESENCE] IN NASOPHARYN X BY CORTES WITH NON-PROBE DETECTION NOT DETECTED 01/05 Specimen Type: NASOPHARYNG EAL Comment: Basilia Fuchs ([phone]) Ordering Provider: CHERISE BUCKLEY Report Released Date/Time: Jan 06, 2024 03:22 PM Reporting Lab: [facility] [address] Performing Lab: [facility] [address] [place] [facility] COVID-19 DIAGNOST IC PANEL (BIOFIRE ) RESPIRATOR Y SYNCYTIAL VIRUS RNA [PRESENCE] IN NASOPHARYN X BY CORTES WITH NON-PROBE DETECTION NOT DETECTED 01/05 Specimen Type: NASOPHARYNG EAL Comment: Basilia Fuchs ([phone]) Ordering Provider: CHERISE BUCKLEY Report Released Date/Time: Jan 06, 2024 03:22 PM Reporting Lab: [facility] [address] Performing Lab: [facility] [address] [place] [facility] COVID-19 DIAGNOST IC PANEL (BIOFIRE ) HUMAN CORONAVIRU S 229E RNA [PRESENCE] IN NASOPHARYN X BY CORTES WITH NON-PROBE DETECTION NOT DETECTED 01/05 Specimen Type: NASOPHARYNG EAL Comment: Basilia Fuchs ([phone]) Ordering Provider: CHERISE BUCKLEY Report Released Date/Time: Jan 06, 2024 03:22 PM Reporting Lab: [facility] [address] Performing Lab: [facility] [address] [place] [facility] COVID-19 DIAGNOST IC PANEL (BIOFIRE ) HUMAN CORONAVIRU S HKU1 RNA [PRESENCE] IN NASOPHARYN X BY CORTES WITH NON-PROBE DETECTION NOT DETECTED 01/05 Specimen Type: NASOPHARYNG EAL Comment: Basilia Fuchs ([phone]) Ordering Provider: CHERISE BUCKLEY Report Released Date/Time: Jan 06, 2024 03:22 PM Reporting Lab: [facility] [address] Performing Lab: [facility] [phone] [facility] COVID-19 DIAGNOST IC PANEL (BIOFIRE ) HUMAN CORONAVIRU S NL63 RNA [PRESENCE] IN NASOPHARYN X BY CORTES WITH NON-PROBE DETECTION NOT DETECTED 01/05 Specimen Type: NASOPHARYNG EAL Comment: Basilia Fuchs ([phone]) Ordering Provider: CHERISE BUCKLEY Report Released Date/Time: Jan 06, 2024 03:22 PM Reporting Lab: [facility] [phone] Performing Lab: [facility] [address] [place] [facility] COVID-19 DIAGNOST IC PANEL (BIOFIRE ) HUMAN CORONAVIRU S OC43 RNA [PRESENCE] IN NASOPHARYN X BY CORTES WITH NON-PROBE DETECTION NOT DETECTED 01/05 Specimen Type: NASOPHARYNG EAL Comment: Basilia Fuchs ([phone]) Ordering Provider: CHERISE BUCKLEY Report Released Date/Time: Jan 06, 2024 03:22 PM Reporting Lab: [facility] [phone] Performing Lab: [facility] [address] [place] [facility] COVID-19 DIAGNOST IC PANEL (BIOFIRE ) [place] VIRUS 1 RNA [PRESENCE] IN NASOPHARYN X BY CORTES WITH NON-PROBE DETECTION NOT DETECTED 01/05 Specimen Type: NASOPHARYNG EAL Comment: Basilia Fuchs ([phone]) Ordering Provider: CHERISE BUCKLEY Report Released Date/Time: Jan 06, 2024 03:22 PM Reporting Lab: [facility] [phone] Performing Lab: [facility] [phone] [place] [facility] COVID-19 DIAGNOST IC PANEL (BIOFIRE ) [place] N[place] VIRUS 2 RNA [PRESENCE] IN NASOPHARYN X BY CORTES WITH NON-PROBE DETECTION NOT DETECTED 01/05 Specimen Type: NASOPHARYNG EAL Comment: Basilia Fuchs ([phone]) Ordering Provider: CHERISE BUCKLEY Report Released Date/Time: Jan 06, 2024 03:22 PM Reporting Lab: [facility] [phone] Performing Lab: [facility] [address] [place] [facility] COVID-19 DIAGNOST IC PANEL (BIOFIRE ) [place] N[place] VIRUS 3 RNA [PRESENCE] IN NASOPHARYN X BY CORTES WITH NON-PROBE DETECTION NOT DETECTED 01/05 Specimen Type: NASOPHARYNG EAL Comment: Basilia Fuchs (594) Ordering Provider: CHERISE BUCKLEY Report Released Date/Time: Jan 06, 2024 03:22 PM Reporting Lab: [facility] [address] Performing Lab: [facility] [address] [place] [facility] COVID-19 DIAGNOST IC PANEL (BIOFIRE ) PARAINFLUE NZA VIRUS 4 RNA [PRESENCE] IN NASOPHARYN X BY CORTES WITH NON-PROBE DETECTION NOT DETECTED 01/05 Specimen Type: NASOPHARYNG EAL Comment: Basilia Fuchs (975) Ordering Provider: CHERISE BUCKLEY Report Released Date/Time: Jan 06, 2024 03:22 PM Reporting Lab: [facility] [address] Performing Lab: [facility] [address] [place] [facility] COVID-19 DIAGNOST IC PANEL (BIOFIRE ) TIME TO END-SYSTOL E LEFT VENTRICLE SPECT NOT DETECTED 01/05 Specimen Type: NASOPHARYNG EAL Comment: Basilia Fuchs (428) Ordering Provider: CHERISE BUCKLEY Report Released Date/Time: Jan 06, 2024 03:22 PM Reporting Lab: [facility] [address] Performing Lab: [facility] [address] [place] [facility] COVID-19 DIAGNOST IC PANEL (BIOFIRE ) BORDETELLA PERTUSSIS. PERTUSSIS TOXIN PROMOTER REGION [PRESENCE] IN NASOPHARYN X BY CORTES WITH NON-PROBE DETECTION NOT DETECTED 01/05 Specimen Type: NASOPHARYNG EAL Comment: Basilia Fuchs (939) Ordering Provider: CHERISE BUCKLEY Report Released Date/Time: Jan 06, 2024 03:22 PM Reporting Lab: [facility] [address] Performing Lab: [facility] [address] [facility] COVID-19 DIAGNOST IC PANEL (BIOFIRE ) IMMUNOFIXA TION FOR BODY FLUID No pathogen s detected 01/05 Specimen Type: NASOPHARYNG EAL Comment: Basilia Fuchs (780) Ordering Provider: CHERISE BUCKLEY Report Released Date/Time: Jan 06, 2024 03:22 PM Reporting Lab: [facility] [address] Performing Lab: [facility] [address] [facility] COVID-19 DIAGNOST IC PANEL (GreenBytesFIRE ) SARS-COV-2 (COVID-19) RNA [PRESENCE] IN NASOPHARYN X BY CORTES WITH NON-PROBE DETECTION NOT DETECTED 01/05 Specimen Type: NASOPHARYNG EAL Comment: Basilia Fuchs (846) Ordering Provider: CHERISE BUCKLEY Report Released Date/Time: Jan 06, 2024 03:22 PM Reporting Lab: [facility] [address] Performing Lab: [facility] [address] [facility] POC CREATINI NE CREATININE [MASS/VOLU ME] IN BLOOD 1.5 mg/dL 0.6 - 1.3 01/05 Specimen Type: BLOOD No comment entered. Ordering Provider: KOBE PARRA Report Released Date/Time: Jan 06, 2024 03:24 PM Reporting Lab: [facility] [address] Performing Lab: [facility] [address] [facility] POC ABG/LACT ATE PH OF VENOUS BLOOD 7.402 7.31 - 7.41 01/05 Specimen Type: VENOUS BLOOD No comment entered. Ordering Provider: KOBE PARRA Report Released Date/Time: Jan 06, 2024 03:24 PM Reporting Lab: [facility] [address] Performing Lab: [facility] [address] [place] [facility] POC ABG/LACT ATE CARBON DIOXIDE [PARTIAL PRESSURE] IN VENOUS BLOOD 50.1 mm[Hg] 41 - 51 01/05 Specimen Type: VENOUS BLOOD No comment entered. Ordering Provider: KOBE PARRA Report Released Date/Time: Jan 06, 2024 03:24 PM Reporting Lab: [facility] [address] Performing Lab: [facility] [address] [place] [facility] POC ABG/LACT ATE OXYGEN [PARTIAL PRESSURE] IN VENOUS BLOOD 24 mm[Hg] 01/05 Specimen Type: VENOUS BLOOD No comment entered. Ordering Provider: KOBE PARRA Report Released Date/Time: Jan 06, 2024 03:24 PM Reporting Lab: [facility] [address] Performing Lab: [facility] [address] [place] [facility] POC ABG/LACT ATE CARBON DIOXIDE, TOTAL [MOLES/VOL UME] IN VENOUS BLOOD 33 mmol/L 24 - 29 01/05 Specimen Type: VENOUS BLOOD No comment entered. Ordering Provider: KOBE PARRA Report Released Date/Time: Jan 06, 2024 03:24 PM Reporting Lab: [facility] [address] Performing Lab: [facility] [address] [place] [facility] POC ABG/LACT ATE BICARBONAT E [MOLES/VOL UME] IN VENOUS BLOOD 31.2 mmol/L 23 - 28 01/05 Specimen Type: VENOUS BLOOD No comment entered. Ordering Provider: KOBE PRARA Report Released Date/Time: Jan 06, 2024 03:24 PM Reporting Lab: [facility] [address] Performing Lab: [facility] [address] [place] [facility] POC ABG/LACT ATE BASE EXCESS IN VENOUS BLOOD BY JOSE Weber 6 mmol/L - 2 01/05 Specimen Type: VENOUS BLOOD No comment entered. Ordering Provider: KOBE PARRA Report Released Date/Time: Jan 06, 2024 03:24 PM Reporting Lab: [facility] [address] Performing Lab: [facility] [address] [place] [facility] POC ABG/LACT ATE FRACTIONAL OXYHEMOGLO BIN IN VENOUS BLOOD 41 01/05 Specimen Type: VENOUS BLOOD No comment entered. Ordering Provider: KOBE PARRA Report Released Date/Time: Jan 06, 2024 03:24 PM Reporting Lab: [facility] [address] Performing Lab: [facility] [address] [place] [facility] POC ABG/LACT ATE LACTATE [MOLES/VOL UME] IN VENOUS BLOOD <1.6mmol /L 0.90 - 1.70 01/05 Specimen Type: VENOUS BLOOD No comment entered. Ordering Provider: KOBE PARRA Report Released Date/Time: Jan 06, 2024 03:24 PM Reporting Lab: [facility] [address] Performing Lab: [facility] [address] [place] [facility] EXTRA BLUE TUBE EXTRA BLUE TUBE RECEIVED 01/05 Specimen Type: PLASMA No comment entered. Ordering Provider: CHERISE BUCKLEY Report Released Date/Time: Jan 06, 2024 03:36 PM Reporting Lab: [facility] [address] Performing Lab: [facility] [address] [place] [facility] BNP NATRIURETI C PEPTIDE B [MASS/VOLU ME] IN SERUM OR PLASMA 18 pg/mL <99 - 99 01/05 Specimen Type: PLASMA No comment entered. Ordering Provider: CHERISE BUCKLEY Report Released Date/Time: Jan 06, 2024 03:22 PM Reporting Lab: [facility] [address] Performing Lab: [facility] [address] [place] [facility] TROPONIN I, HS TROPONIN I.CARDIAC [MASS/VOLU ME] IN SERUM OR PLASMA <3 <35 - 35 01/05 Specimen Type: PLASMA No comment entered. Ordering Provider: CHERISE BUCKLEY Report Released Date/Time: Jan 06, 2024 03:22 PM Reporting Lab: [facility] [address] Performing Lab: [facility] [address] [place] [facility] EXTRA GOLD GEL TUBE EXTRA GOLD GEL TUBE RECEIVED 01/05 Specimen Type: SERUM No comment entered. Ordering Provider: CHERISE BUCKLEY Report Released Date/Time: Jan 06, 2024 03:36 PM Reporting Lab: [facility] [address] Performing Lab: [facility] [address] [facility] Vital Signs Combined list of inpatient and outpatient Vital Signs from Department of Defense and Veterans Affairs, ranging from 12 months to all on record, depending upon the facility. Vital Sign Value Date Comments Source Encounters Combined list of: 1) Encounters from Department of Veterans Affairs facilities going back up to thelast 18 months. 2) Encounters from the Department of [facility] facilities going back up to 280 months. Location Location Details Encounter Type Encounter Number Reason For Visit Attending Provider ADM Date DC Date Status Disposition Source [facility] Outpatient Encounter [id number] SYSTEM,CIS -ARK 09/25 [facility] [place] [facility] Outpatient Encounter [id number] KRISTIE YOON 09/25 [facility] Outpatient Encounter [id number] SYSTEM,CIS -ARK 09/25 [facility] EMERGENCY DEPT VISIT MOD MDM [id number] Diagnos is: ICD-10- CM R60.9 Edema, unspeci fied
RAMSES HUI 09/25 [facility] [place] [facility] Outpatient Encounter [id number] Diagnos is: ICD-10- CM I51.89 Other ill-def ined heart disease s
LAVENTURE, JACOB L 09/26 [facility] [place] [facility] Outpatient Encounter [id number] CHANNING URIAS V 09/27 [facility] [place] [facility] Outpatient Encounter [id number] 09/30 [place] [facility] [place] [facility] Outpatient Encounter [id number] 10/07 [place] [facility] [place] [facility] Outpatient Encounter [id number] 10/18 [facility] [place] [facility] Outpatient Encounter [id number] 10/18 [facility] [place] [facility] Outpatient Encounter [id number] SYSTEM,CIS -ARK 10/28 [facility] [place] [facility] Outpatient Encounter [id number] SYSTEM,CIS -ARK 10/28 [facility] [place] [facility] OFFICE O/P EST LOW 20-29 MIN [id number] Diagnos is: ICD-10- CM R07.89 Other chest pain
NALLUSAMY, VASUMATHI 10/28 [facility] EMERGENCY DEPT VISIT [facility] [id number] Diagnos is: ICD-10- CM I48.0 Paroxys mal atrial fibrill ation<b r/> GREGORIADABRENNEN,SE ALEXANDER 10/28 [facility] [place] [facility] Outpatient Encounter [id number] 10/28 [facility] Inpatient Encounter [id number] Admit Reason: AFIB RVR<br/ > TEAM,CARDS TWO 10/28 [facility] Inpatient Encounter [id number] SYSTEM,CIS -ARK 10/28 [place] [facility] [place] [facility] Inpatient Encounter [id number] SYSTEM,CIS -ARK 10/29 [place] [facility] [place] [facility] Inpatient Encounter [id number] 10/29 [place] [facility] [place] [facility] Inpatient Encounter [id number] 10/29 [place] [facility] [place] [facility] Inpatient Encounter [id number] 10/29 [place] [facility] [place] [facility] INJ PERFLUTREN LIP MICROS,ML [id number] Diagnos is: ICD-10- CM R06.02 Shortne ss of breath< br/> Mao NORIEGA 10/29 [place] [facility] [place] [facility] Inpatient Encounter [id number] 10/29 [facility] [place] [facility] MOTHER HELPER AWNING HANGER HELPER INDIVIDU [id number] Diagnos is: ICD-10- CM Z71.81 Spiritu al or religio us family court counsellor ing<br/ > CAPRI BETANCOURT 10/29 [place] [facility] [place] [facility] Inpatient Encounter [id number] 10/29 [place] [facility] [place] [facility] Inpatient Encounter [id number] 10/29 [place] [facility] [place] [facility] Inpatient Encounter [id number] SYSTEM,CIS -ARK 10/30 [place] [facility] [place] [facility] Inpatient Encounter [id number] 10/30 [place] [facility] [place] [facility] Inpatient Encounter [id number] 10/30 [place] [place] [facility] Inpatient Encounter [id number] 10/30 [place] [facility] [place] [facility] Inpatient Encounter [id number] SYSTEM,CIS -ARK 10/31 [place] [facility] [place] [facility] Inpatient Encounter [id number] 10/31 [place] [facility] [place] [facility] Inpatient Encounter [id number] 10/31 [place] [facility] [place] [facility] SELF CARE MNGMENT TRAINING [id number] Diagnos is: ICD-10- CM R26.89 Other abnorma lities of gait and mobilit y
CHARLY RAMSEY 10/31 [facility] OT EVAL LOW COMPLEX 30 MIN [id number] Diagnos is: ICD-10- CM Z73.6 Limitat ion of activit ies due to disabil ity<br/ > Desi JAVIER 10/31 [place] [facility] [place] [facility] Inpatient Encounter [id number] 10/31 [facility] [place] [facility] Inpatient Encounter [id number] SYSTEM,CIS -ARK 11/01 [place] [facility] [place] [facility] Inpatient Encounter [id number] 11/01 [place] [facility] [place] [facility] [place] En[place] [id number] 11/01 [place] [facility] [place] [facility] [place] En[place] [id number] 11/01 [place] [facility] [place] [facility] En[facility] [id number] 11/01 [place] [facility] [place] [facility] En[facility] [id number] 11/01 [place] [facility] [place] [facility] [place] En[place] [id number] SYSTEM,CIS -ARK 11/02 [place] [facility] [place] [facility] [place] En[place] [id number] 11/02 [place] [facility] [place] [facility] [place] En[place] [id number] 11/02 [place] [facility] [place] [facility] [place] En[place] [id number] 11/02 [place] [facility] [place] [facility] [place] En[place] [id number] 11/02 [place] [facility] [place] [facility] [place] En[place] [id number] SYSTEM,CIS -ARK 11/03 [place] [facility] [place] [facility] [place] En[place] [id number] 11/03 [place] [facility] [place] [facility] En[facility] [id number] 11/03 [place] [facility] [place] [facility] [place] En[place] [id number] 11/03 [place] [facility] [place] [facility] [place] En[place] [id number] 11/03 [place] [facility] [place] [facility] [place] En[place] [id number] SYSTEM,CIS -ARK 11/04 [place] [facility] [place] [facility] [place] En[place] [id number] 11/04 [place] [facility] [place] [facility] [place] En[place] [id number] 11/04 [place] [facility] [place] [facility] SBSQ HOSP IP/OBS MODERATE 35 [id number] Diagnos is: ICD-10- CM I95.9 Hypoten adriana, unspeci fied
NARESH BARRETT NZI 11/04 [place] [facility] [place] [place] [id number] 11/04 [place] [facility] [place] [facility] [place] En[place] [id number] SYSTEM,CIS -ARK 11/05 [place] [facility] [place] [facility] [place] En[place] [id number] 11/05 [place] [facility] [place] [facility] [place] En[place] [id number] 11/05 [place] [facility] [place] [facility] [place] En[place] [id number] 11/05 [place] [facility] [place] [facility] [place] En[place] [id number] 11/05 [place] [facility] [place] [facility] [place] En[place] [id number] 11/06 [place] [facility] [place] [facility] Inpatient Encounter [id number] SYSTEM,CIS -ARK 11/06 [place] [facility] [place] [facility] QNHP OL DIG ASSMT&MGMT 21+ [id number] Diagnos is: ICD-10- CM I48.91 Unspeci fied atrial fibrill ation<b r/> DESLAURIER S,LUIS M 11/06 [place] [facility] [place] [facility] Inpatient Encounter [id number] 11/06 [place] [facility] [place] [facility] Inpatient Encounter [id number] 11/06 [place] [facility] [place] [facility] Outpatient Encounter [id number] 11/06 [place] [facility] [place] [facility] HOSP IP/OBS DSCHRG MGMT >30 [id number] Diagnos is: ICD-10- CM U07.1 COVID-1 9
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
OLIMPIA VALLADARES 11/07 [facility] [place] [facility] QNHP OL DIG ASSMT&MGMT 21+ [id number] Diagnos is: ICD-10- CM I48.0 Paroxys mal atrial fibrill ation<b r/> DESLAURIER S,LUIS M 11/07 [place] [facility] [place] [facility] Outpatient Encounter [id number] 11/12 [place] [facility] [facility] [place] [facility] Outpatient Encounter [id number] 11/18 [place] [facility] [place] [facility] OFFICE O/P EST LOW 20-29 MIN [id number] Diagnos is: ICD-10- CM I51.89 Other ill-def ined heart disease s
NALLUSAMY, VASUMATHI 11/18 [facility] [place] [facility] Outpatient Encounter [id number] Diagnos is: ICD-10- CM R26.9 Unspeci fied abnorma lities of gait and mobilit y
JASMINE DE JESUS M 11/25 [place] [facility] [place] [facility] Outpatient Encounter [id number] 11/26 [place] [facility] [place] [facility] OFFICE O/P EST HI 40-54 MIN [id number] Diagnos is: ICD-10- CM I51.89 Other ill-def ined heart disease s
LAVSHAJACOB L 11/27 [facility] [place] [facility] OFF/OP EST MAY X REQ PHY/QHP [id number] Diagnos is: ICD-10- CM I50.32 Chronic diastol ic (conges tive) heart failure
Shital CUNNINGHAM 11/27 [place] [facility] [id number] Diagnos is: ICD-10- CM R26.9 Unspeci fied abnorma lities of gait and mobilit y
NALLUSAMY, VASUMATHI 12/02 [facility] [place] [facility] Outpatient Encounter [id number] 12/03 [place] [facility] [place] [facility] Outpatient Encounter [id number] 12/05 [place] [facility] [place] [facility] HC PRO PHONE CALL 5-10 MIN [id number] Diagnos is: ICD-10- CM I50.9 Heart failure , unspeci fied
MARC BOWDEN M 12/06 [facility] Outpatient Encounter [id number] 12/07 [facility] HC PRO PHONE CALL 11-20 MIN [id number] Diagnos is: ICD-10- CM Z51.81 Encount er for therape utic drug level monitor ing<br/ > KIMBERLI GUTIERREZ 12/09 [facility] Outpatient Encounter [id number] Diagnos is: ICD-10- CM R26.9 Unspeci fied abnorma lities of gait and mobilit y
JASMINE DE JESUS CA Alber 12/10 [facility] ELECTROCAR DIOGRAM COMPLETE [id number] Diagnos is: ICD-10- CM Z13.6 Encount er for screeni ng for cardiov ascular disorde rs
YANG ALMONTE REL 12/12 [facility] OFFICE O/P EST SF 10-19 MIN [id number] Diagnos is: ICD-10- CM I48.0 Paroxys mal atrial fibrill ation<b r/> Desi HOLGUIN 12/12 [facility] Outpatient Encounter [id number] 12/13 [facility] Outpatient Encounter [id number] 12/13 [facility] [place] [id number] Diagnos is: ICD-10- CM Z71.[address] counsellor ing and surveil patricio<b r/> Karen FOWLER 12/13 [facility] [place] [facility] Outpatient Encounter [id number] Diagnos is: ICD-10- CM I50.9 Heart failure , unspeci fied
KAL,MARC Campo 12/13 [facility] [place] [facility] OFF/OP EST MAY X REQ PHY/QHP [id number] Diagnos is: ICD-10- CM I50.9 Heart failure , unspeci fied
KAL,MARC Campo 12/13 [facility] [place] [facility] Outpatient Encounter [id number] Diagnos is: ICD-10- CM I50.9 Heart failure , unspeci fied
KALMARC 12/13 [facility] [place] [facility] Outpatient Encounter [id number] 12/18 [facility] [place] [facility] Outpatient Encounter [id number] 12/20 [facility] [place] [facility] Outpatient Encounter [id number] 12/26 [facility] [place] [facility] Outpatient Encounter [id number] 12/26 [facility] [place] [facility] Outpatient Encounter [id number] 12/26 [facility] [place] [facility] OFFICE O/P EST MOD 30-39 MIN [id number] Diagnos is: ICD-10- CM I51.89 Other ill-def ined heart disease s
JACOB VIRGEN 12/27 [facility] [place] [facility] Outpatient Encounter [id number] 01/02 [facility] [place] [facility] OFFICE O/P NEW MOD 45-59 MIN [id number] Diagnos is: ICD-10- CM E11.9 Type 2 diabete s mellitu s without complic ations< br/> TITO CRYSTAL 01/03 [facility] [place] [facility] WHEELCHAIR MNGMENT TRAINING [id number] Diagnos is: ICD-10- CM R53.1 Weaknes s
JORDAN KIRBY 01/07 [place] [facility] Outpatient Encounter [id number] 01/08 [facility] [place] [facility] Outpatient Encounter [id number] 01/15 [place] [facility] [place] [facility] Outpatient Encounter [id number] Diagnos is: ICD-10- CM I50.9 Heart failure , unspeci fied
MARC BOWDEN 01/15 [facility] [place] [facility] Outpatient Encounter [id number] 01/20 [place] [facility] [place] [facility] Outpatient Encounter [id number] 01/20 [place] [facility] [place] [facility] Outpatient Encounter [id number] 01/22 [place] [facility] [place] [facility] Outpatient Encounter [id number] 01/22 [facility] [place] [facility] ELECTROCAR DIOGRAM REPORT [id number] Diagnos is: ICD-10- CM Z13.6 Encount er for screeni ng for cardiov ascular disorde rs
Jodi ZHANG 01/22 [facility] [place] [facility] OFFICE O/P EST SF 10-19 MIN [id number] Diagnos is: ICD-10- CM I48.0 Paroxys mal atrial fibrill ation<b r/> Desi HOLGUIN 01/22 [place] [facility] [place] [facility] Outpatient Encounter [id number] TEN CONTRERAS 01/22 [facility] [place] [facility] Outpatient Encounter [id number] NIMISHA TRAN 01/22 [facility] [place] [facility] Outpatient Encounter [id number] 01/22 [facility] [place] [facility] OFFICE O/P EST SF 10-19 MIN [id number] Diagnos is: ICD-10- CM I48.0 Paroxys mal atrial fibrill ation<b r/> Desi HOLGUIN 01/22 [facility] [place] [facility] OFFICE O/P EST MOD 30-39 MIN [id number] [id number] Diagnos is: ICD-10- CM Z01.818 Encount er for other preproc edural examina tion
NIMISHA TRAN 01/22 [facility] [place] [facility] Outpatient Encounter [id number] 01/22 [facility] [place] [facility] ANESTH CORRECT HEART RHYTHM [id number] Diagnos is: ICD-10- CM I48.0 Paroxys mal atrial fibrill ation<b r/> NIMISHA TRAN 01/22 [facility] ECG MONIT/REPR T UP TO 48 HRS [id number] [id number] Diagnos is: ICD-10- CM Z13.6 Encount er for screeni ng for cardiov ascular disorde rs
Desi HOLGUIN 01/22 [facility] [place] [facility] Outpatient Encounter [id number] 01/23 [facility] [place] [facility] Outpatient Encounter [id number] 01/28 [facility] [place] [facility] Outpatient Encounter [id number] 01/29 [facility] [place] [facility] Outpatient Encounter [id number] 01/30 [facility] OFFICE O/P EST MOD 30-39 MIN [id number] [id number] Diagnos is: ICD-10- CM J44.9 Chronic obstruc tive pulmona ry disease , unspeci fied
STEFANI JUÁREZ 01/30 [facility] [place] [facility] Outpatient Encounter [id number] Diagnos is: ICD-10- CM J44.9 Chronic obstruc tive pulmona ry disease , unspeci fied
SARA CAROLINAT M 01/31 [facility] PRO PHONE CALL 21-30 MIN [phone] Diagnos is: ICD-10- CM E66.01 Morbid (severe ) obesity due to excess calorie s
RADHAT ERESE 02/03 [facility] [place] [facility] Outpatient Encounter [id number] 02/04 [facility] EXT ECG>48HR<7 D REV&INTERP J [id number] Diagnos is: ICD-10- CM I48.0 Paroxys mal atrial fibrill ation<b r/> CUONG ODONNELL 02/07 [facility] [place] [facility] Outpatient Encounter [id number] 02/10 [facility] [place] [facility] Outpatient Encounter [id number] Diagnos is: ICD-10- CM I50.9 Heart failure , unspeci fied
MARC BOWDEN 02/13 [facility] OFF/OP EST MAY X REQ PHY/QHP [id number] [id number] Diagnos is: ICD-10- CM S31.829 D Unspeci fied open wound of left buttock , subsequ ent encount er
HELLENBLU KATE M 02/25 [facility] OFFICE O/P EST HI 40-54 MIN [id number] [id number] Diagnos is: ICD-10- CM L30.9 Dermati tis, unspeci fied
SOUTOR,CAR OL A 02/27 [facility] PRO PHONE CALL 11-20 MIN [id number] [id number] Diagnos is: ICD-10- CM I50.9 Heart failure , unspeci fied
KALMARC Farley M 02/28 [facility] QNHP OL DIG ASSMT&MGMT 11-20 [id number] [id number] Diagnos is: ICD-10- CM L40.9 Psorias is, unspeci fied
IDABRANDONEDNA PRAKASH C 02/28 [facility] OFFICE O/P EST HI 40-54 MIN [id number] [id number] Diagnos is: ICD-10- CM I48.0 Paroxys mal atrial fibrill ation<b r/> JACOB VIRGEN L 02/28 [facility] HC PRO PHONE CALL 11-20 MIN [id number] [id number] Diagnos is: ICD-10- CM E66.01 Morbid (severe ) obesity due to excess calorie s
Marquita GARCIA 03/07 [facility] Outpatient Encounter [id number] [id number] 03/13 [facility] Outpatient Encounter [id number] 03/17 [facility] [place] [address]-2.61 [id number] Diagnos is: ICD-10- CM Z71.[address] counsellor ing and surveil patricio<b r/> MAHENDRA DUTTON N 03/20 [facility] Outpatient Encounter [id number] Diagnos is: ICD-10- CM I50.9 Heart failure , unspeci fied
MARC BOWDEN 03/20 [facility] Outpatient Encounter [id number] 03/25 [facility] ELECTROCAR DIOGRAM COMPLETE [id number] Diagnos is: ICD-10- CM Z13.6 Encount er for screeni ng for cardiov ascular disorde rs
ANIVALBRADEzequiel REEVES A 03/25 [facility] OFF/OP CNSLTJ NEW/EST MOD 40 [id number] Diagnos is: ICD-10- CM I10 Essenti al (primar y) hyperte nsion<b r/> Karen RAE 03/25 [facility] Outpatient Encounter [id number] ASHLEY LEA 04/03 [facility] Outpatient Encounter [id number] 04/08 [facility] MED N[facility] INDIV SUBSEQ [id number] Diagnos is: ICD-10- CM Z71.[address] counsellor ing and surveil patricio<b r/> MAHENDRA DUTTON N 04/14 [facility] Outpatient Encounter [id number] Diagnos is: ICD-10- CM I50.9 Heart failure , unspeci fied
MARC BOWDEN 04/15 [facility] [place] [facility] Outpatient Encounter [id number] Diagnos is: ICD-10- CM I50.9 Heart failure , unspeci fied
MARC BOWDEN 04/17 [facility] SELF CARE MNGMENT TRAINING [id number] Diagnos is: ICD-10- CM L89.40 Pressr ulc of contig site of back, buttock and hip, unsp stg<br/ > INGRID DYE 04/30 [facility] OFFICE O/P EST MOD 30-39 MIN [id number] [id number] Diagnos is: ICD-10- CM E66.01 Morbid (severe ) obesity due to excess calorie s
FREDIS REYNAGA 04/30 [facility] HC PRO PHONE CALL 11-20 MIN [id number] [id number] Diagnos is: ICD-10- CM I50.9 Heart failure , unspeci fied
MARC BOWDEN 05/01 [facility] OFFICE O/P EST HI 40-54 MIN [id number] [id number] Diagnos is: ICD-10- CM I51.89 Other ill-def ined heart disease s
JACOB VIRGEN 05/02 [facility] [place] [facility] Outpatient Encounter [id number] 05/06 [facility] [place] [facility] Outpatient Encounter [id number] 05/08 [facility] [place] [facility] Outpatient Encounter [id number] 05/09 [facility] [place] [facility] Outpatient Encounter [id number] [id number] 05/16 [facility] [place] [facility] Outpatient Encounter [id number] Diagnos is: ICD-10- CM I50.9 Heart failure , unspeci fied
KAL,MARC HILL Alber 05/19 [facility] [place] [facility] Outpatient Encounter [id number] 06/03 [facility] MED NUTRITION INDIV SUBSEQ [id number] Diagnos is: ICD-10- CM Z71.[address] counsellor ing and surveil patricio<b r/> MAHENDRA DUTTON N 06/05 [facility] [place] [facility] Outpatient Encounter [id number] 06/13 [facility] Outpatient Encounter [id number] Diagnos is: ICD-10- CM I50.9 Heart failure , unspeci fied
KAL,MARC Campo 06/15 [facility] Outpatient Encounter [id number] 06/17 [facility] [place] [facility] Outpatient Encounter [id number] [id number] 06/19 [facility] Outpatient Encounter [id number] 06/19 [facility] Outpatient Encounter [id number] Diagnos is: ICD-10- CM I48.0 Paroxys mal atrial fibrill ation<b r/> Desi HOLGUIN 06/26 [facility] [place] [facility] Outpatient Encounter [id number] 07/02 [facility] PRO PHONE CALL 5-10 MIN [id number] [id number] Diagnos is: ICD-10- CM I50.9 Heart failure , unspeci fied
KAL,MARC Campo 07/02 [facility] [place] [facility] Outpatient Encounter [id number] 07/02 [facility] [place] [facility] OFFICE O/P EST MOD 30-39 MIN [id number] [id number] Diagnos is: ICD-10- CM I51.89 Other ill-def ined heart disease s
PROMISEJACOB Ezequiel 07/02 [facility] [place] [facility] Outpatient Encounter [id number] 07/02 [facility] [place] [facility] Outpatient Encounter [id number] [id number] 07/04 [facility] [place] [facility] Outpatient Encounter [id number] [id number] SYSTEM,CIS -ARK 07/07 [facility] [place] [facility] ELECTROCAR DIOGRAM COMPLETE 15503-7.61 [id number] Diagnos is: ICD-10- CM Z13.6 Encount er for screeni ng for cardiov ascular disorde rs
SUZY,YANG REL 07/07 [facility] [place] [facility] Inpatient Encounter [id number] [id number] 07/07 [facility] [place] [facility] ECHO TRANSESOPH AGEAL [id number] [id number] Diagnos is: ICD-10- CM I48.0 Paroxys mal atrial fibrill ation<b r/> Desi PEREZ 07/07 [facility] [place] [facility] Outpatient Encounter [id number] 07/07 [facility] [place] [facility] Outpatient Encounter [id number] 07/07 [facility] [place] [facility] OFFICE O/P EST LOW 20-29 MIN [id number] [id number] Diagnos is: ICD-10- CM I48.19 Other persist ent atrial fibrill ation<b r/> Desi HOLGUIN 07/07 [facility] [place] [facility] Outpatient Encounter [id number] 07/07 [facility] [place] [facility] 1ST HOSP IP/OBS HIGH 75 [id number] [id number] Diagnos is: ICD-10- CM I48.0 Paroxys mal atrial fibrill ation<b r/> PAWEL VELARDE RET 07/07 [facility] [place] [facility] Inpatient Encounter [id number] Admit Reason: AFIB DOFETIL FERMIN LOADING
TEAM,CARDS TWO 07/07 [facility] Restoratio n of Cardiac Rhythm, Single [id number] [id number] Admit Reason: AFIB DOFETIL FERMIN LOADING
TEAM,CARDS TWO 07/07 [facility] [place] [facility] Inpatient Encounter [id number] 07/07 [facility] [place] [facility] Inpatient Encounter [id number] [id number] 07/07 [facility] [place] [facility] Inpatient Encounter [id number] 07/07 [facility] [place] [facility] Inpatient Encounter [id number] 07/07 [facility] [place] [facility] Inpatient Encounter [id number] [id number] 07/07 [facility] [place] [facility] Inpatient Encounter [id number] 07/07 [facility] [place] [facility] Inpatient Encounter [id number] SYSTEM,CIS -ARK 07/08 [place] [facility] [place] [facility] Inpatient Encounter [id number] 07/08 [place] [facility] [place] [facility] SBSQ HOSP IP/OBS HIGH 50 [id number] [id number] Diagnos is: ICD-10- CM I48.19 Other persist ent atrial fibrill ation<b r/> PAWEL VELARDE RET L 07/08 [place] [facility] [place] [facility] Inpatient Encounter [id number] 07/08 [place] [facility] [place] [facility] Inpatient Encounter [id number] 07/08 [place] [facility] [place] [facility] Inpatient Encounter [id number] 07/08 [place] [facility] [place] [facility] Inpatient Encounter [id number] [id number] 07/09 [place] [facility] [place] [facility] Inpatient Encounter [id number] [id number] SYSTEM,CIS -ARK 07/09 [place] [facility] [place] [facility] Inpatient Encounter [id number] 07/09 [place] [facility] [place] [facility] SBSQ HOSP IP/OBS HIGH 50 [id number] [id number] Diagnos is: ICD-10- CM I48.19 Other persist ent atrial fibrill ation<b r/> PAWEL VELARDE RET L 07/09 [place] [facility] [place] [facility] Inpatient Encounter [id number] 07/09 [place] [facility] [place] [facility] OFFICE O/P EST SF 10-19 MIN [id number] [id number] Diagnos is: ICD-10- CM I48.19 Other persist ent atrial fibrill ation<b r/> GOMEZ,R EHAN A 07/09 [place] [facility] [place] [facility] Inpatient Encounter [id number] 07/09 [place] [facility] [place] [facility] ANESTH CORRECT HEART RHYTHM [id number] [id number] Diagnos is: ICD-10- CM I10 Essenti al (primar y) hyperte nsion<b r/> Homero HARRIS II 07/09 [facility] CARDIOVERS ION ELECTRIC EXT [id number] [id number] Diagnos is: ICD-10- CM I48.91 Unspeci fied atrial fibrill ation<b r/> BRYANNA SALAZAR 07/09 [facility] [place] [facility] Inpatient Encounter [id number] 07/09 [facility] [place] [facility] Inpatient Encounter [id number] SYSTEM,CIS -ARK 07/10 [facility] [place] [facility] Inpatient Encounter [id number] 07/10 [facility] [place] [facility] Inpatient Encounter [id number] [id number] 07/10 [place] [facility] [place] [facility] Inpatient Encounter [id number] 07/10 [place] [facility] [place] [facility] Inpatient Encounter [id number] 07/10 [facility] [place] [facility] HC PRO PHONE CALL 5-10 MIN [id number] [id number] Diagnos is: ICD-10- CM Z71.[address] counsellor ing<br/ > ORLIN SUAZO 07/11 [facility] HOSP IP/OBS DSCHRG MGMT >30 [id number] [id number] Diagnos is: ICD-10- CM I48.19 Other persist ent atrial fibrill ation<b r/> CUONG ODONNELL CUK 07/11 [place] [facility] Outpatient Encounter [id number] [id number] 07/17 [place] [facility] Outpatient Encounter [id number] [id number] Diagnos is: ICD-10- CM I50.9 Heart failure , unspeci fied
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
CLIFFORD HUERTA 07/22 [facility] PRO PHONE CALL 5-10 MIN [id number] [id number] Diagnos is: ICD-10- CM I50.9 Heart failure , unspeci fied
KALMRAC LIZ Campo 07/31 [facility] MED NUTRITION INDIV SUBSEQ [id number] [id number] Diagnos is: ICD-10- CM E66.01 Morbid (severe ) obesity due to excess calorie s
MAHENDRA DUTTON 08/12 [facility] OFFICE O/P EST MOD 30 MIN [id number] [id number] Diagnos is: ICD-10- CM I51.89 Other ill-def ined heart disease s
JACOB VIRGEN 08/13 [facility] SELF CARE MNGMENT TRAINING [id number] Diagnos is: ICD-10- CM Z74.09 Other reduced mobilit y
TOMASZ FRANCO MY B 08/18 [facility] Outpatient Encounter [id number] Diagnos is: ICD-10- CM I50.9 Heart failure , unspeci fied
KAL,MARC Campo 08/20 [facility] Outpatient Encounter [id number] 08/21 [facility] Outpatient Encounter [id number] [id number] Diagnos is: ICD-10- CM I50.9 Heart failure , unspeci fied
KAL,MARC Campo 08/28 [facility] Outpatient Encounter [id number] 09/16 [facility] Outpatient Encounter [id number] 09/16 [facility] OFFICE O/P EST MOD 30 MIN [id number] Diagnos is: ICD-10- CM E66.9 Obesity , unspeci fied
ROSAAlberDARCY AEL 09/17 [facility] Outpatient Encounter [id number] Diagnos is: ICD-10- CM I50.9 Heart failure , unspeci fied
KAL,MARC Campo 09/17 [facility] Outpatient Encounter [id number] MATT GUERRERO 09/21 [facility] HC PRO PHONE CALL 5-10 MIN [id number] Diagnos is: ICD-10- CM I50.9 Heart failure , unspeci fied
MARC BOWDEN 09/29 [place] [facility] [place] [facility] ELECTROCAR DIOGRAM COMPLETE [id number] Diagnos is: ICD-10- CM Z13.6 Encount er for screeni ng for cardiov ascular disorde rs
CLARE SALINAS 10/06 [facility] OFFICE O/P EST HI 40 MIN [id number] [id number] Diagnos is: ICD-10- CM I48.19 Other persist ent atrial fibrill ation<b r/> Desi HOLGUIN 10/06 [facility] Outpatient Encounter [id number] 10/06 [facility] [place] [facility] Outpatient Encounter [id number] 10/06 [facility] [place] [facility] Outpatient Encounter [id number] Diagnos is: ICD-10- CM I50.9 Heart failure , unspeci fied
MARC BOWDEN M 10/15 [facility] MED NUTRITION INDIV SUBSEQ [id number] Diagnos is: ICD-10- CM E66.01 Morbid (severe ) obesity due to excess calorie s
MAHENDRA DUTTON 10/26 [facility] [place] [facility] Outpatient Encounter [phone] KESHAWN SALES 11/02 [place] [facility] [place] [facility] Outpatient Encounter [id number] 11/04 [place] [facility] [place] [facility] Outpatient Encounter [id number] 11/04 [facility] [place] [facility] IMMUNIZATI ON ADMIN [id number] Diagnos is: ICD-10- CM Z00.01 Encount er for general adult medical exam w abnorma l finding s
KARINEVINNYALDO CORBINADIEL 11/04 [facility] Outpatient Encounter [id number] 11/05 [facility] Outpatient Encounter [id number] OPAL IBARRA R 11/05 [facility] PRO PHONE CALL 5-10 MIN [id number] Diagnos is: ICD-10- CM Z65.8 Oth problem s related to psychos ocial circums tances< br/> PHOENIX OSBORNE M 11/09 [facility] Outpatient Encounter [id number] 11/10 [facility] Outpatient Encounter [id number] 11/10 [facility] Outpatient Encounter [id number] 11/10 [facility] Outpatient Encounter [id number] VEL ONEILL R 11/10 [facility] Outpatient Encounter [id number] 11/10 [facility] Outpatient Encounter [id number] Diagnos is: ICD-10- CM I50.9 Heart failure , unspeci fied
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
KAL,MARC Campo 12/10 [facility] Outpatient Encounter [id number] Diagnos is: ICD-10- CM I50.9 Heart failure , unspeci fied
KAL,MARC Campo 12/17 [facility] Outpatient Encounter [id number] 12/23 [facility] OFF/OP EST MAY X REQ PHY/QHP [phone] Diagnos is: ICD-10- CM H53.9 Unspeci fied visual disturb ance
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
Carlos RANDOLPH 12/24 [facility] Outpatient Encounter [id number] 12/29 [facility] OFF/OP EST MAY X REQ PHY/QHP [id number] [id number] Diagnos is: ICD-10- CM Z01.118 Encntr for exam of ears and hearing w oth abnorma l finding s
DONNITISH SILVER A 12/29 [facility] Outpatient Encounter [phone] Diagnos is: ICD-10- CM I50.9 Heart failure , unspeci fied
KAL,MARC Campo 01/01 [facility] QNHP OL DIG ASSMT&MGMT 11- [id number] [id number] Diagnos is: ICD-10- CM Z79.01 half-way (curren t) use of anticoa gulants
KIMBERLI GUTIERREZ 01/04 [facility] Outpatient Encounter [id number] SYSTEM,CIS -ARK 01/05 [facility] ELECTROCAR DIOGRAM REPORT [id number] [phone] Diagnos is: ICD-10- CM Z13.6 Encount er for screeni ng for cardiov ascular disorde rs
NIKOLAS GONZÁLES QUIN S 01/05 [facility] OFFICE O/P EST HI 40 MIN [id number] Diagnos is: ICD-10- CM I48.19 Other persist ent atrial fibrill ation<b r/> Desi HOLGUIN 01/05 [facility] Outpatient Encounter [id number] MAR BUCKLEY 01/05 [facility] Outpatient Encounter [id number] 01/05 [facility] Outpatient Encounter [id number] MAR BUCKLEY 01/05 [facility] EMERGENCY DEPT VISIT MOD MDM [id number] Diagnos is: ICD-10- CM J44.1 Chronic obstruc tive pulmona ry disease w (acute) exacerb ation<b r/> MAR BUCKLEY 01/05 [facility] OFFICE O/P EST LOW 20 MIN [id number] Diagnos is: ICD-10- CM 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
BRANDON FRANCOIS L 01/11 [facility] Outpatient Encounter [id number] 01/11 [place] [facility] [place] [facility] Outpatient Encounter [id number] 01/12 [place] [facility] [place] [facility] Outpatient Encounter [id number] 01/13 [place] [facility] Outpatient Encounter [id number] 01/13 [facility] PRO PHONE CALL 11-20 MIN [id number] Diagnos is: ICD-10- CM J44.9 Chronic obstruc tive pulmona ry disease , unspeci fied
REMORLIN MARCH 01/20 [facility] OFFICE O/P EST HI 40 MIN [id number] Diagnos is: ICD-10- CM I50.30 Unspeci fied diastol ic (conges tive) heart failure
LAVENTURE, JACOB Ezequiel 02/03 [facility] OFF[facility] O/P EST MOD 30 MIN [id number] Diagnos is: ICD-10- CM Z68.41 Body mass index [BMI] 40.0-44 .9, adult<b r/> FREDIS REYNAGA 02/10 [facility] CONFORMITY EVALUATION [id number] Diagnos is: ICD-10- CM H90.3 Sensori neural hearing loss, bilater al
DONOHNITISH JENSEN MBERLY A 02/11 [facility] Outpatient Encounter [id number] [phone] Diagnos is: ICD-10- CM I50.32 Chronic diastol ic (conges tive) heart failure
LAVENTURE, JACOB L 02/12 [facility] Outpatient Encounter [id number] 02/12 [place] [facility] [place] [facility] Outpatient Encounter [id number] [id number] Diagnos is: ICD-10- CM I50.9 Heart failure , unspeci fied
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<b r/> ADAN HEALY 02/18 [place] [facility] [place] [facility] Outpatient Encounter [id number] 02/18 [place] [facility] [place] [facility] Outpatient Encounter [id number] 02/19 [place] [facility] [place] [facility] Outpatient Encounter [id number] 02/22 [place] [facility] [place] [facility] Outpatient Encounter [id number] TANNA SMITH 02/22 [place] [facility] [place] [facility] Outpatient Encounter [id number] 02/23 [place] [facility] NUTRITION INDIV SUBSEQ [id number] Diagnos is: ICD-10- CM I50.9 Heart failure , unspeci fied
MAHENDRA DUTTON 02/25 [facility] [place] [facility] Outpatient Encounter [id number] 02/26 [place] [facility] [place] [facility] Outpatient Encounter [id number] Diagnos is: ICD-10- CM Z13.6 Encount er for screeni ng for cardiov ascular disorde rs
NITA ROMANO N M 03/15 [facility] Outpatient Encounter [id number] Diagnos is: ICD-10- CM I50.9 Heart failure , unspeci fied
MARC BOWDENYN M 03/19 [facility] Outpatient Encounter [id number] ROBBY GIVENS M 03/19 [facility] Outpatient Encounter [id number] REEMA MOYER TELLO 03/24 [facility] Social History Combined list of available smoking, tobacco, and other social history from Department of Defense and Veterans Affairs facilities. Social History Type Response Date Comment Sour e Tobacco smoking status [facility]-TOBACCO FORMER USER 11/05/2023 [facility] History of tobacco use MO-TOBACCO QUIT 1 5 YRS OR MORE 11/05/2023 [facility] History of tobacco use MO-TOBACCO FORMER USER 10/28/2022 [facility] History of tobacco use MO-TOBACCO QUIT 5 TO < 15 YRS 12/19/2020 [facility] History of tobacco use MO-TOBACCO QUIT 5 TO < 15 YRS 02/01/2020 [facility] History of tobacco use MO-TOBACCO QUIT 1 TO < 5 YRS 01/26/2019 [facility] History of tobacco use FORMER TOBACCO USE <1Y 02/03/2018 [facility] History of tobacco use CURRENT TOBACCO USER 06/14/2016 [facility] History of tobacco use CURRENT TOBACCO USER 08/02/2015 [facility] History of tobacco use CURRENT TOBACCO USER 06/06/2014 [facility] History of tobacco use CURRENT TOBACCO USER 05/04/2013 [facility] History of tobacco use CURRENT TOBACCO USER 04/24/2012 [facility] Plan of Care List of future care activities from Department of Veterans Affairs facilities. Additional future care activities may be listed in the Assessment and Plan section. Date/Time Care Activity Care Activity Detail Facili ty 03/29/2024 AMBULATORY - SURGERY AMBULATORY - SURGERY [facility] 03/29/2024 AMBULATORY - SURGERY AMBULATORY - SURGERY [facility] 03/30/2024 AMBULATORY - REHAB MEDICINE AMBULATORY - REHAB MEDICINE [facility] 04/01/2024 AMBULATORY - NONE [facility]ATORY - NONE [facility] 04/12/2024 AMBULATORY - SURGERY AMBULATORY - SURGERY [facility] 04/13/2024 AMBULATORY - MEDICINE AMBULATORY - MEDICI NE [facility] 04/13/2024 AMBULATORY - MEDICINE AMBULATORY - MEDICI NE [facility] 04/13/2024 AMBULATORY - MEDICINE AMBULATORY - MEDICI NE [facility] 04/15/2024 AMBULATORY - SURGERY AMBULATORY - SURGERY [facility] 05/06/2024 AMBULATORY - MEDICINE AMBULATORY - MEDICI NE [facility] 05/12/2024 AMBULATORY - MEDICINE AMBULATORY - MEDICI NE [facility] 05/12/2024 AMBULATORY - MEDICINE AMBULATORY - MEDICI NE [facility] 02/27/2024 Consult Order OT OCCUPATIONAL THERAPY OUTPT EQUIPMENT Cons [employer] Developer's Choice PASHA TYLER 04/06/2024 Laboratory - [facility] [employer] ry Order BASIC METABOLIC PANEL+MG PLASMA SP ONCE [facility] 05/05/2024 Laboratory - [facility] [employer] [facility] Order BNP PLASMA SP ONCE [facility] 05/05/2024 Laboratory - [facility] [employer] [facility] Order BASIC METABOLIC PANEL+MG PLASMA SP [facility] Advance Directives List of completed, amended, or rescinded Advance Directives on record at Department of Veterans Affairs facilities. An actual copy of the Directive is not included. Date Advance Directive Provider Source 01/02/2023 STATE-AUTHORIZED PORTABLE ORDERS [facility]
--- OUTSIDE RECORDS SUMMARY | 2024-03-25 10:30 | XMS_ITS | Encounter Summary ---
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 This section includes the names of all active insurance providers for the patient. Insurance Provider Type of Coverage Plan Name Start of Policy Coverage End of Policy Coverage Group Number Member ID Insurance Provider's Telephone Number Policy Paul's Name Patient's Relationship to Policy Paul MEDICARE (WNR) MEDICARE (M) PART A Jul 21, 2014 PART A [id number] [phone] Miguelito CARRILLO PATIENT Selected Encounter This section includes the information on record at [place] for the Encounter. Date/Time Encounter Type Encounter Description Reason Provider Source Jul 22, 2023 07:06 PM QNHP OL DIG ASSMT&MGMT 11-20 CLINICAL PHARMACY ICD-10-CM Z79.01 terminal carman (current) use of 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 JAMEE HUERTA Homero Encounter Template Text not used by [place] Assessments - Encounter Diagnoses This section includes the primary and secondary diagnoses documented for the Encounter. Date/Time Primary/Secondary Diagnosis Diagnosis Name Provider Source Jul 22, 2023 07:12 PM PRIMARY care home (current) use of 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 JAMEE HUERTA [facility] Jul 22, 2023 07:12 PM SECONDARY Encounter for therapeutic drug level monitoring JAMEE HUERTAANANYA Campo [facility] Jul 22, 2023 07:12 PM SECONDARY Unspecified atrial fibrillation JAMEE HUERTAANANYA [facility] Plan of Treatment: Future Appointments (+ 6 months) and Future Tests (+/- 45 days) The Plan of Treatment section includes future care activities for the patient [facility] [place] [facility] This section includes future appointments and future orders which are active, pending or scheduled. Future Appointments This section includes appointments that were scheduled to occur 6 months from the date of the Encounter, up to a maximum of 20 appointments. The data comes from all [facility]. Appointment Date/Time Appointment Type Appointme nt Facility Name Aug 12, 2023 03:00 PM AMBULATORY - NONE [facility] Aug 13, 2023 10:30 AM AMBULATORY - [place]ICINE [place] [facility] Aug 13, 2023 11:30 AM AMBULATORY - [place]ICINE [place] [facility] Aug 18, 2023 02:00 PM AMBULATORY - REHAB MEDICIN E [facility] Sep 16, 2023 03:00 PM AMBULATORY - NONE [facility] Sep 17, 2023 02:30 PM AMBULATORY - [place]ICINE [place] [facility] Oct 07, 2023 12:15 PM AMBULATORY - MEDICINE [place] [facility] Oct 07, 2023 01:00 PM AMBULATORY - [place]ICINE [place] [facility] Oct 07, 2023 02:00 PM AMBULATORY - [place]ICINE [place] [facility] Oct 27, 2023 11:30 AM AMBULATORY - NONE [facility] Nov 05, 2023 01:30 PM AMBULATORY - NONE [facility] December 01, 2023 12:30 PM AMBULATORY - SURGERY [place] [facility] December 07, 2023 07:00 AM AM[place]ATORY - NONE [place] [facility] Dec 25, 2023 02:20 PM AMBULATORY - SURGERY [place] [facility] Dec 25, 2023 02:45 PM AMBULATORY - SURGERY [place] [facility] Dec 30, 2023 01:30 PM AMBULATORY - SURGERY [place] [facility] Jan 06, 2024 12:30 PM AMBULATORY - MEDICINE [place] [facility] Jan 06, 2024 01:00 PM AMBULATORY - MEDICINE [place] [facility] Jan 06, 2024 02:00 PM AMBULATORY - MEDICINE [place] [facility] Jan 06, 2024 02:45 PM AMBULATORY - MEDICINE [facility] Active, Pending, and Scheduled Orders This section includes a listing of several types of active, pending, and scheduled orders, including clinic medications orders, diagnostic test orders, procedure orders and consult orders; where the start date of the order is 45 days before the date of the Encounter or 45 days after the date of theEncounter. The data comes from all [place] treatment facilities. Test Date/Time Test Type Test Details Facility Name Jul 09, 2023 04:05 PM Laboratory - Chemi stry Order BASIC METABOLIC PANEL+MG PLASMA WC ONCE [facility] Lab Results: +/- 30 days of the encounter This section includes the Chemistry and Hematology Lab Results on record with [place] for the patient. Radiology Reports and Pathology Reports are provided separately, in subsequent sections. Lab Results This section contains the Chemistry/Hematology Results that were resulted 30 days before or 30 daysafter the date of the Encounter. Date/Time Source Result Type Result - Unit Interpretation Reference Range Comment Aug 13, 2023 10:49 AM [facility] BNP Specimen Type: PLASMA No comment entered. Ordering Provider: FLAQUITO VIRGEN Report Released Date/Time: Jul 10, 2023 07:52 AM Reporting Lab: [facility] [id number] Performing Lab: [facility] [phone] BNP 29 pg/mL <99 Aug 13, 2023 10:49 AM [facility] BASIC METABOLIC PANEL+MG Specimen Type: PLASMA No comment entered. Ordering Provider: FLAQUITO VIRGEN Report Released Date/Time: Jul 10, 2023 07:52 AM Reporting Lab: [facility] [phone] Performing Lab: [facility] [phone] CREATININE 1.0 mg/dL 0.7-1.2 UREA NITROGEN 16 mg/dL 8-26 GLUCOSE 102 mg/dL H 70-100 SODIUM 142 mmol/L 136-145 POTASSIUM 4.1 mmol/L 3.5-5.1 CHLORIDE 106 mmol/L 98-107 CO2 25 mmol/L 22-29 CALCIUM 9.3 mg/dL 8.4-10.2 MAGNESIUM 2.0 mg/dL 1.6-2.6 ANION GAP 11 mmol/L 5-15 .CREAT EGFR(CKD-EPI) 79 >60 Jul 10, 2023 07:19 AM [facility] BNP Specimen Type: PLASMA No comment entered. Ordering Provider: ASHLEY VELARDE Report Released Date/Time: Jul 09, 2023 01:25 PM Reporting Lab: [facility] [phone] Performing Lab: [facility] [phone] BNP 25 pg/mL <99 Jul 10, 2023 07:19 AM [facility] BASIC METABOLIC PANEL+MG Specimen Type: PLASMA No comment entered. Ordering Provider: ASHLEY VELARDE Report Released Date/Time: Jul 09, 2023 01:25 PM Reporting Lab: [facility] [phone] Performing Lab: [facility] [phone] CREATININE 1.0 mg/dL 0.7-1.2 UREA NITROGEN 14 mg/dL 8-26 GLUCOSE 92 mg/dL 70-100 SODIUM 140 mmol/L 136-145 POTASSIUM 4.1 mmol/L 3.5-5.1 CHLORIDE 102 mmol/L 98-107 CO2 25 mmol/L 22-29 CALCIUM 9.3 mg/dL 8.4-10.2 MAGNESIUM 2.1 mg/dL 1.6-2.6 ANION GAP 13 mmol/L 5-15 .CREAT EGFR(CKD-EPI) 79 >60 Jul 09, 2023 01:54 PM [facility] BASIC METABOLIC PANEL+MG Specimen Type: PLASMA No comment entered. Ordering Provider: ASHLEY VELARDE Report Released Date/Time: Jul 08, 2023 02:49 PM Reporting Lab: [facility] [phone] Performing Lab: [facility] [phone] CREATININE 1.0 mg/dL 0.7-1.2 UREA NITROGEN 12 mg/dL 8-26 GLUCOSE 108 mg/dL H 70-100 SODIUM 141 mmol/L 136-145 POTASSIUM 4.4 mmol/L 3.5-5.1 CHLORIDE 102 mmol/L 98-107 CO2 31 mmol/L H 22-29 CALCIUM 9.7 mg/dL 8.4-10.2 MAGNESIUM 2.0 mg/dL 1.6-2.6 ANION GAP 8 mmol/L 5-15 .CREAT EGFR(CKD-EPI) 79 >60 Jul 09, 2023 07:16 AM [facility] BASIC METABOLIC PANEL+MG Specimen Type: PLASMA No comment entered. Ordering Provider: ASHLEY VELARDE Report Released Date/Time: Jul 08, 2023 07:58 AM Reporting Lab: [facility] [phone] Performing Lab: [facility] [phone] CREATININE 1.0 mg/dL 0.7-1.2 UREA NITROGEN 14 mg/dL 8-26 GLUCOSE 99 mg/dL 70-100 SODIUM 139 mmol/L 136-145 POTASSIUM 3.4 mmol/L L 3.5-5.1 CHLORIDE 102 mmol/L 98-107 CO2 26 mmol/L 22-29 CALCIUM 9.2 mg/dL 8.4-10.2 MAGNESIUM 2.0 mg/dL 1.6-2.6 ANION GAP 11 mmol/L 5-15 .CREAT EGFR(CKD-EPI) 79 >60 Jul 08, 2023 03:08 PM [facility] BASIC METABOLIC PANEL+MG Specimen Type: PLASMA No comment entered. Ordering Provider: ASHLEY VELARDE Report Released Date/Time: Jul 08, 2023 10:12 AM Reporting Lab: [facility] [phone] Performing Lab: [facility] [phone] CREATININE 1.1 mg/dL 0.7-1.2 UREA NITROGEN 12 mg/dL 8-26 GLUCOSE 108 mg/dL H 70-100 SODIUM 138 mmol/L 136-145 POTASSIUM 3.6 mmol/L 3.5-5.1 CHLORIDE 102 mmol/L 98-107 CO2 28 mmol/L 22-29 CALCIUM 9.3 mg/dL 8.4-10.2 MAGNESIUM 2.0 mg/dL 1.6-2.6 ANION GAP 8 mmol/L 5-15 .CREAT EGFR(CKD-EPI) 71 >60 Jul 08, 2023 07:17 AM [facility] ALBUMIN Specimen Type: PLASMA No comment entered. Ordering Provider: ASHLEY VELARDE Report Released Date/Time: Jul 07, 2023 01:58 PM Reporting Lab: [facility] [phone] Performing Lab: [facility] [phone] ALBUMIN 3.6 g/dL 3.5-5.2 Jul 08, 2023 07:17 AM [facility] BASIC METABOLIC PANEL+MG Specimen Type: PLASMA No comment entered. Ordering Provider: ASHLEY VELARDE Report Released Date/Time: Jul 07, 2023 01:58 PM Reporting Lab: [facility] [phone] Performing Lab: [facility] [phone] CREATININE 1.1 mg/dL 0.7-1.2 UREA NITROGEN 14 mg/dL 8-26 GLUCOSE 105 mg/dL H 70-100 SODIUM 137 mmol/L 136-145 POTASSIUM 3.0 mmol/L L 3.5-5.1 CHLORIDE 100 mmol/L 98-107 CO2 27 mmol/L 22-29 CALCIUM 9.0 mg/dL 8.4-10.2 MAGNESIUM 1.9 mg/dL 1.6-2.6 ANION GAP 10 mmol/L 5-15 .CREAT EGFR(CKD-EPI) 71 >60 Jul 07, 2023 04:43 PM [facility] FINGERSTICK GLUCOSE Specimen Type: BLOOD Comment: Save Result Ordering Provider: ETHAN MOSS Report Released Date/Time: Jul 08, 2023 10:19 AM Reporting Lab: [facility] [phone] Performing Lab: [facility] [phone] FINGERSTICK GLUCOSE 116 mg/dL 70-100 Jul 07, 2023 06:56 AM [facility] PROTHROMBIN TIME/INR Specimen Type: PLASMA No comment entered. Ordering Provider: HITESH HOLGUIN Report Released Date/Time: Jun 26, 2023 12:06 PM Reporting Lab: [facility] [phone] Performing Lab: [facility] [phone] .INR 1.3 H 0.8-1.1 .PT 15.1 s H 9.4-12.5 Jul 07, 2023 06:56 AM [facility] BASIC METABOLIC PANEL+MG Specimen Type: PLASMA No comment entered. Ordering Provider: HITESH HOLGUIN Report Released Date/Time: Jun 26, 2023 11:50 AM Reporting Lab: [facility] [phone] Performing Lab: [facility] [phone] CREATININE 1.1 mg/dL 0.7-1.2 UREA NITROGEN 14 mg/dL 8-26 GLUCOSE 104 mg/dL H 70-100 SODIUM 137 mmol/L 136-145 POTASSIUM 3.3 mmol/L L 3.5-5.1 CHLORIDE 99 mmol/L 98-107 CO2 24 mmol/L 22-29 CALCIUM 9.5 mg/dL 8.4-10.2 MAGNESIUM 2.2 mg/dL 1.6-2.6 ANION GAP 14 mmol/L 5-15 .CREAT EGFR(CKD-EPI) 71 >60 Jul 07, 2023 06:56 AM [facility] CBC Specimen Type: BLOOD No comment entered. Ordering Provider: HITESH HOLGUIN Report Released Date/Time: Jun 26, 2023 12:06 PM Reporting Lab: [facility] [phone] Performing Lab: [facility] [phone] WBC 9.78 10*3/uL 4.0-11.0 RBC 5.08 10*6/uL 4.6-6.2 HGB 16.4 g/dL 13.5-17.9 HCT 48.1 41-54 MCV 94.7 fL 80-100 MCH 32.3 pg 27-33 MCHC 34.1 g/dL 32.0-37.5 PLT 244 10*3/uL 150-400 MPV 10.0 fL 7.4-10.4 RDW 12.7 11.5-14.5 Jul 02, 2023 12:10 PM [facility] BASIC METABOLIC PANEL+MG Specimen Type: PLASMA No comment entered. Ordering Provider: FLAQUITO VIRGEN Report Released Date/Time: May 02, 2023 01:39 PM Reporting Lab: [facility] [phone] Performing Lab: [facility] [phone] CREATININE 1.1 mg/dL 0.7-1.2 UREA NITROGEN 16 mg/dL 8-26 GLUCOSE 101 mg/dL H 70-100 SODIUM 138 mmol/L 136-145 POTASSIUM 3.8 mmol/L 3.5-5.1 CHLORIDE 101 mmol/L 98-107 CO2 26 mmol/L 22-29 CALCIUM 9.4 mg/dL 8.4-10.2 MAGNESIUM 2.2 mg/dL 1.6-2.6 ANION GAP 11 mmol/L 5-15 .CREAT EGFR(CKD-EPI) 71 >60 Social History: Smoking Status (Most current) and Tobacco Use (All prior to encounter date) This section includes the most current, and the historical, smoking and tobacco- related health factors from the [place] facility where the Encounter took place. Current Smoking Status This section includes the most current smoking, or tobacco-related health factor, from the [place] facility where the Encounter took place. Date/Time Current Smoking Status Comment Facil ity Dec 19, 2020 12:07 PM VA-TOBACCO FORMER USER [facility] Tobacco Use History This section includes a history of the smoking, or tobacco-related health factors, that were collected on or before the date of the Encounter. The data comes from the [place] facility where the Encounter took place. Date/Time Smoking Status/Tobacco Use Comment F acamelia Dec 19, 2020 12:07 PM [place]-TOBACCO QUIT 5 TO < 15 YRS [facility] Aug 02, 2015 09:49 AM CURRENT TOBACCO USER [facility] Jun 06, 2014 08:51 AM CURRENT TOBACCO USER [facility] May 04, 2013 09:29 AM CURRENT TOBACCO USER [facility] Apr 24, 2012 07:40 AM CURRENT TOBACCO USER [facility] Advance Directives: All historical and current Section Date Range: From patient's date of to the date document was created. This section includes ALL of a patient's completed or amended [place] Advance and Rescinded Directives. The entries below indicate that a directive exists for the patient, but an actual copy is not included with this document. The data comes from all [facility]. Date Advance Directives Provider Source Jan 02, 2023 STATE-AUTHORIZED PORTABLE ORDERS [facility] Encounter Notes: All associated encounter notes This section contains the clinical notes associated to the Encounter. Date/Time Encounter Note(s) Provider Source Jul 22, 2023 07:07 PM MEDICATION MGT CON SULT: LOCAL TITLE: ANTICOAGULATION CLINIC CONSULT STANDARD TITLE: MEDICATION MGT CONSULT DATE OF NOTE: JUL 22, 2023@19:07 ENTRY DATE: JUL 22, 2023@19:07:11 AUTHOR: EMANI HUERTA COSIGNER: URGENCY: STATUS: COMPLETED DOAC DISCHARGE - Anticoagulant: Apixaban 5mg every 12 hours - Indication(s): atrial fibrillation - Relevant PMH: morbid obesity, wt>150kg - Xa level 11/18/22 - Prior major bleeds: none - Prior 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: none - Start date: 10/29/22 while inpt - Anticipated duration: indefinite - [id number] = 4 (age, HTN, HFpEF, DM) => lower TE risk - HASBLED = 1 (age) => moderate bleed risk SUBJECTIVE/OBJECTIVE: Obtained from chart review. Admission Date: Jun Discharge Date: Jun Discharge Destination: home Status post dofetilide and DCCV, atrial fibrillation Reviewed D/C summary & Education Pharmacy Med Instruction/Rec notes (or pertinent inpatient notes if not available). Updated relevant background info above, if applicable. dashboard flags: none Labs ==== Age: 72 Height: 76 in [193.0 cm] (07/02/2023 13:54) Weight: 364 lb [165.11 kg] (07/07/2023 08:02) Collection DT Specimen Test Name Result Units Ref Range 07/10/2023 05:30 PLASMA CREATININE 1.0 mg/dL 0.7 - 1.2 07/09/2023 13:54 PLASMA CREATININE 1.0 mg/dL 0.7 - 1.2 07/09/2023 05:30 PLASMA CREATININE 1.0 mg/dL 0.7 - 1.2 07/08/2023 15:08 PLASMA CREATININE 1.1 mg/dL 0.7 - 1.2 07/08/2023 05:30 PLASMA CREATININE 1.1 mg/dL 0.7 - 1.2 07/07/2023 06:56 PLASMA CREATININE 1.1 mg/dL 0.7 - 1.2 07/02/2023 12:10 PLASMA CREATININE 1.1 mg/dL 0.7 - 1.2 06/05/2023 13:33 PLASMA CREATININE 1.1 mg/dL 0.7 - 1.2 05/16/2023 13:14 PLASMA CREATININE 1.1 mg/dL 0.7 - 1.2 05/02/2023 12:55 PLASMA CREATININE 0.9 mg/dL 0.7 - 1.2 Cockcroft & Gault (Actual body weight) = 153.6 mL/min Collection DT Spec WBC HGB HCT PLT MCV NEUT LYMPHS 07/07/2023 06:56 BLOOD 9.78 16.4 48.1 244 94.7 01/22/2023 10:52 BLOOD 9.21 15.1 46.7 262 94.3 11/27/2022 10:53 BLOOD 8.94 14.2 43.3 249 94.1 11/06/2022 05:30 BLOOD 10.75 14.4 43.4 310 93.3 11/05/2022 05:30 BLOOD 12.73 H 14.7 44.7 369 93.1 73.1 14.2 11/03/2022 05:30 BLOOD 16.89 H 15.1 45.5 341 94.2 77.7 15.7 11/02/2022 05:30 BLOOD 17.24 H 15.7 47.3 373 92.7 10/31/2022 05:30 BLOOD 15.51 H 13.4 L 39.6 L 275 94.1 10/30/2022 05:30 BLOOD 21.23 H 13.1 L 39.3 L 225 95.2 10/29/2022 05:30 BLOOD 22.15 H 12.4 L 37.1 L 191 94.2 10/28/2022 23:06 BLOOD 24.08 H 13.1 L 39.0 L 227 94.9 canc canc 10/28/2022 16:17 BLOOD 22.58 H 14.9 43.7 256 95.0 95.5 2.0 Collection DT Specimen Test Name Result Units Ref Range 11/27/2022 10:53 PLASMA BILIRUBIN, TOTAL 0.5 mg/dL 0.2 - 1.2 11/27/2022 10:53 PLASMA ALKALINE PHOSPHAT 96 U/L 40 - 150 11/27/2022 10:53 PLASMA AST/SGOT 14 U/L Ref: <=34 11/27/2022 10:53 PLASMA ALT/SGPT 21 U/L Ref: <=55 10/28/2022 23:05 PLASMA DIR. BILIRUBIN 0.7 H mg/dL Ref: <=0.5 ASSESSMENT/PLAN: - Changes in health/labs/medications do not affect anticoagulation. Labs are stable - Continue anticoagulation at current dose. - Monitor dashboard for labs, drug interactions, and compliance. - Dashboard flags reviewed/cleared, if applicable. - Lab monitoring frequency defined by dashboard or as clinically indicated. Time Spent: 15min /mateo/ CLIFFORD HUERTA Pharmacist Signed: 07/22/2023 19:12 EMANI HUERTA [facility]
--- OUTSIDE RECORDS SUMMARY | 2024-03-25 10:31 | XMS_ITS | Encounter Summary ---
Author Name [facility] Organization [facility] [place] Address [address] [place] [address] Care Team Providers Care Delinquent Tax Collector Name Role Phone GELACIO MICHEL Primary Care Provider Sarah guadalupe Insurance Providers: All historical and current Section [...] PART A Jul 21, 2014 PART A [id number] Miguelito CARRILLO PATIENT Selected Encounter This section includes the information on record at [place] for the Encounter. Date/Time Encounter Type Encounter Description Reason Provider Source Aug 13, 2023 11:30 AM OFFICE O/P EST MOD 30 MIN CARDIOLOGY ICD-10-CM I51.89 Other ill-defined heart diseases CLOVER BAILEY Encounter Template Text not used by [place] Assessments - Encounter Diagnoses This section includes the primary and secondary diagnoses documented for the Encounter. Date/Time Primary/Secondary Diagnosis Diagnosis Name Provider Source Aug 13, 2023 11:57 AM PRIMARY Other ill-defined heart diseases FLAQUITO BAILEY [facility] Aug 13, 2023 11:57 AM SECONDARY Essential (primary) hypertension FLAQUITO BAILEY [facility] Aug 13, 2023 11:57 AM SECONDARY Other persistent atrial fibrillation FLAQUITO BAILEY [facility] Plan of Treatment: Future Appointments (+ 6 months) and Future Tests (+/- 45 days) The Plan of Treatment section includes future care activities for the patient [facility] This section includes future appointments and future orders which are active, pending or scheduled. Future Appointments This section includes appointments that were scheduled to occur 6 months from the date of the Encounter, up to a maximum of 20 appointments. The data comes from all [facility]. Appointment Date/Time Appointment Type Appointme nt Facility Name Aug 18, 2023 02:00 PM AMBULATORY - REHAB MEDICIN E [facility] Sep 16, 2023 03:00 PM AMBULATORY - NONE [facility] Sep 17, 2023 02:30 PM [facility]IC[facility] [facility] Oct 07, 2023 12:15 PM [facility] Oct 07, 2023 01:00 PM [facility] Oct 07, 2023 02:00 PM [place] [facility] Oct 27, 2023 11:30 AM AMBULATORY - NONE [facility] Nov 05, 2023 01:30 PM AMBULATORY - NONE [facility] December 01, 2023 12:30 PM AM[facility]UL[facility] [place] [facility] December 07, 2023 07:00 AM [facility] Dec 25, 2023 02:20 PM [facility]UL[facility] - [facility] Dec 25, 2023 02:45 PM [place] - [place] [facility] Dec 30, 2023 01:30 PM [place] - [place] [facility] Jan 06, 2024 12:30 PM [place] [facility] Jan 06, 2024 01:00 PM [place] [facility] Jan 06, 2024 02:00 PM [place] [facility] Jan 06, 2024 02:45 PM [place] [facility] Jan 08, 2024 07:45 PM [place] - [place] [facility] Jan 12, 2024 01:15 PM AMBULATORY - [place] [facility] Jan 13, 2024 03:00 PM AMBULATORY - NONE [facility] Active, Pending, and Scheduled Orders This section includes a listing of several types of active, pending, and scheduled orders, including clinic medications orders, diagnostic test orders, procedure orders and consult orders; where the start date of the order is 45 days before the date of the Encounter or 45 days after the date of theEncounter. The data comes from all [place] treatment facilities. Test Date/Time Test Type Test Details Facility Name Jul 09, 2023 04:05 PM Laboratory - Chemi stry Order BASIC METABOLIC PANEL+MG PLASMA WC ONCE [facility] Lab Results: +/- 30 days of the encounter This section includes the Chemistry and Hematology Lab Results on record with [place] for the patient. Radiology Reports and Pathology Reports are provided separately, in subsequent sections. Lab Results This section contains the Chemistry/Hematology Results that were resulted 30 days before or 30 daysafter the date of the Encounter. Date/Time Source Result Type Result - Unit Interpretation Reference Range Comment Aug 13, 2023 10:49 AM [facility] BNP Specimen Type: PLASMA No comment entered. Ordering Provider: FLAQUITO BAILEY Report Released Date/Time: Jul 10, 2023 07:52 AM Reporting Lab: [facility] [id number] Performing Lab: [facility] [id number] BNP 29 pg/mL <99 Aug 13, 2023 10:49 AM [facility] BASIC METABOLIC PANEL+MG Specimen Type: PLASMA No comment entered. Ordering Provider: FLAQUITO BAILEY Report Released Date/Time: Jul 10, 2023 07:52 AM Reporting Lab: [facility] [id number] Performing Lab: [facility] [id number] CREATININE 1.0 mg/dL 0.7-1.2 UREA NITROGEN 16 mg/dL 8-26 GLUCOSE 102 mg/dL H 70-100 SODIUM 142 mmol/L 136-145 POTASSIUM 4.1 mmol/L 3.5-5.1 CHLORIDE 106 mmol/L 98-107 CO2 25 mmol/L 22-29 CALCIUM 9.3 mg/dL 8.4-10.2 MAGNESIUM 2.0 mg/dL 1.6-2.6 ANION GAP 11 mmol/L 5-15 .CREAT EGFR(CKD-EPI ) 79 >60 Vital Signs: All taken on the encounter date This section contains inpatient and outpatient Vital Signs collected on the date of the Encounter. Date/Time Temperature Pulse Blood Pressure Respiratory Rate SP02 Pain Height Weight Body Mass Index Source Aug 13, 2023 11:00 AM 98.4 F 81 /min 120/77 mm[Hg] 18 /min 95 % 0 [place] [facility] Social History: Smoking Status (Most current) and Tobacco Use (All prior to encounter date) This section includes the most current, and the historical, smoking and tobacco- related health factors from the [place] facility where the Encounter took place. Current Smoking Status This section includes the most current smoking, or tobacco-related health factor, from the [facility] where the Encounter took place. Date/Time Current Smoking Status Comment Facil ity Dec 19, 2020 12:07 PM VA-TOBACCO FORMER USER [facility] Tobacco Use History This section includes a history of the smoking, or tobacco-related health factors, that were collected on or before the date of the Encounter. The data comes from the [place] facility where the Encounter took place. Date/Time Smoking Status/Tobacco Use Comment F acility Dec 19, 2020 12:07 PM [place]-TOBACCO QUIT 5 TO < 15 YRS [facility] Aug 02, 2015 09:49 AM CURRENT TOBACCO USER [facility] Jun 06, 2014 08:51 AM CURRENT TOBACCO USER [facility] May 04, 2013 09:29 AM CURRENT TOBACCO USER [facility] Apr 24, 2012 07:40 AM CURRENT TOBACCO USER [facility] Advance Directives: All historical and current Section Date Range: From patient's date of to the date document was created. This section includes ALL of a patient's completed or amended [place] Advance and Rescinded Directives. The entries below indicate that a directive exists for the patient, but an actual copy is not included with this document. The data comes from all [facility]. Date Advance Directives Provider Source Jan 02, 2023 STATE-AUTHORIZED PORTABLE ORDERS [facility] Encounter Notes: All associated encounter notes This section contains the clinical notes associated to the Encounter. Date/Time Encounter Note(s) Provider Source Aug 13, 2023 11:45 AM CARDIOLOGY ATTENDING OUTPATIENT NOTE: LOCAL TITLE: CARDIOLOGY CLINIC NOTE STANDARD TITLE: CARDIOLOGY ATTENDING OUTPATIENT NOTE DATE OF NOTE: AUG 13, 2023@11:45 ENTRY DATE: AUG 13, 2023@11:45:25 AUTHOR: LAVENTURE,JACOB L EXP COSIGNER: URGENCY: STATUS: COMPLETED Heart Failure Follow Up History of Present Illness: GILDA CARRILLO 72y/o male seen at [facility] heart failure clinic today for follow up. He has a history of heart failure with preserved ejection fraction, lymphedema, COPD, hypertension, prediabetes, and BPH. He was hospitalized October 2022 with sepsis secondary to cellulitis, COVID, and new atrial fibrillation with rapid ventricular response. Echocardiogram on October 29, 2022 showed ejection fraction of 55 to 60% and grade 1 diastolic dysfunction. CLAUS on July 07, 2023 with EF 55-60%. He was admitted July 07 to July 10, 2023 for dofetilide initiation and cardioversion which was successful. He has chronic shortness of breath with minimal activity with a history of COPD. He states that his inhaler helps with his breathing and coughing. He sleeps in a chair due to chronic right hip pain. He denies lightheadedness or abdominal fullness/bloating. He has occasional lower extremity edema but denies any worsening. His home weight has increased over the past month with which he attributes to being off Ozempic and eating more calories. He is working on following a low sodium diet. He is unable to exercise due to chronic shortness of breath and right hip pain. He uses a walker at home. He has had 3 episodes of hypotension with his morning blood pressure. I question accuracy since he is asymptomatic and lowest blood pressure was 69/48. He states that blood pressures improved with rechecking. Blood pressure in clinic today 120/77. He does not want to lower any of his medications. Review of Systems: All other systems were reviewed and are negative other than in the HPI. Active problems - Computerized Problem List is the source for the followin. Hypertension (SNOMED CT 14282442) 2. Tachycardia - EKG 04/24/[address] no acute ST or T wave changes 3. Chronic back pain (SNOMED CT 181090840) - s/p laminectomy L2-4 '00 - disability parking permit application completed 03/10/18 with exp date 03/2023 4. Other and unspecified alcohol dependence, unspecified drinking behavior 5. Tobacco use (SNOMED CT 677680590) - quit >25yr use 6. SCREEN - c scope - AAA due 65-75 - DEXA due >70 7. 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 SURGERY Hx - laminectomy L2-4 '00 - tonsilectomy - adenoidectomy - R tympanoplasty 9. LUNG LESION - incidental on c-xray 04/21/12 ER @[place] - CT chest 05/01/12 @[place] - CT chest 05/25/12 @[place] lung nodules, new effusion, rib frx - pulmonary nodule clinic referred 05/25/12 - pulmo 05/29/[address] effusion & nodule surveill - pulmo 09/19/13 per pulmo d/c monitor stable on CT 10. Family social history - f old age, hrt ds - m breast ca met to lung - 4 children healthy 11. Body mass index 40+ - severely obese 12. Solitary nodule of lung (SNOMED CT 782453590) 13. Chronic obstructive lung disease - PFT done 08/28/15 @[facility] 14. Degenerative joint disease - CT 06/08/2016; bilateral hips mod/severe 15. Benign localized hyperplasia of prostate 16. Arthritis of right hip 17. Lumbar spondylosis 18. Bilateral foot pain 19. Psoriasis 20. Venous stasis edema of bilateral lower limbs 21. Lipodermatosclerosis 22. Diabetes Mellitus Type 2 (SCT 79596054) 23. Diastolic dysfunction 24. Paroxysmal atrial fibrillation 25. Long-term current use of anticoagulant 26. Persistent atrial fibrillation Allergies: Patient has answered NKA Cardiac Medications: Active Outpatient Medications (including Supplies): Active Outpatient Medications Status 1) A & D OINT APPLY LIBERALLY TO GROIN AND BUTTOCKS ACTIVE TOPICALLY DIRECTED INTERTRIGO 2) ACETAMINOPHEN 500MG TAB TAKE TWO TABLETS BY MOUTH ACTIVE THREE TIMES A DAY FOR PAIN *NOT TO EXCEED 4000MG IN 24 HOURS FROM ALL SOURCES* 3) ALBUTEROL 3/IPRATROP 0.5MG/3ML INHL 3ML INHALE 3ML IN ACTIVE NEBULIZER BY INHALATION EVERY 4 HOURS NEEDED FOR SHORTNESS OF BREATH 4) ALBUTEROL 90MCG (CFC-F) 200D ORAL INHL INHALE 2 PUFFS ACTIVE BY INHALATION FOUR TIMES A DAY NEEDED FOR SHORTNESS OF BREATH SHAKE WELL (FOR IMMEDIATE RELIEF). 5) APIXABAN 5MG TAB TAKE ONE TABLET BY MOUTH EVERY 12 ACTIVE HOURS TO TREAT AND/OR PREVENT BLOOD CLOTS 6) BRIEF,TRANQUILITY AUGUSTIN OVERNITE XXL#2118 USE BRIEF ACTIVE DIRECTED NEEDED 7) CLEANSING CLOTH ATTENDS PKT USE 1 WASHCLOTH TOPICALLY ACTIVE DIRECTED 8) DICLOFENAC NA 1% TOP GEL APPLY 2 GRAMS TOPICALLY TWO ACTIVE TIMES A DAY NEEDED FOR PAIN -USE DOSE CARD IN BOX TO MEASURE DOSE -MAXIMUM OF 32 GM PER DAY 9) DIMETHICONE 12.5% TOP CREAM APPLY AFFECTED AREA ACTIVE TOPICALLY THREE TIMES A WEEK 10) DOFETILIDE 250MCG CAP TAKE ONE CAPSULE BY MOUTH TWICE ACTIVE A DAY FOR ATRIAL FIBRILLATION 11) DRESSING,MEPILEX BORDER HEEL 8.7INX9.1IN APPLY 1 ACTIVE DRESSING TOPICALLY THREE TIMES WEEKLY 12) EMPAGLIFLOZIN 25MG TAB TAKE ONE-HALF TABLET BY MOUTH ACTIVE EVERY MORNING FOR HEART FAILURE 13) FLUTICASONE PROP 50MCG 120D NASAL INHL SPRAY 2 SPRAYS ACTIVE IN EACH NOSTRIL EVERY DAY FOR NASAL DRIP 14) FUROSEMIDE 40MG TAB TAKE TWO TABLETS BY MOUTH EVERY ACTIVE MORNING FOR EXCESS FLUID FOR WEIGHT GAIN OR WORSENING HEART FAILURE SYMPTOMS 15) HYDROPHILIC (EQV AQUAPHOR) TOP OINT APPLY SMALL ACTIVE AMOUNT TOPICALLY THREE TIMES A WEEK FOR DRY SKIN 16) KERLIX 4.5IN STERILE USE 1 BANDAGE TOPICALLY ACTIVE DIRECTED 17) LOSARTAN 50MG TAB TAKE ONE TABLET BY MOUTH EVERY ACTIVE MORNING FOR HEART FAILURE 18) NYSTATIN 224455 UNT/GM CREAM APPLY THIN LAYER ACTIVE TOPICALLY TWICE A DAY FUNGAL INFECTION EXTERNAL USE ONLY APPLY TO PANNUS 19) POTASSIUM CL 20MEQ SA TAB (DISPERSIBLE) TAKE TWO ACTIVE TABLETS BY MOUTH TWICE A DAY FOR POTASSIUM SUPPLEMENT 20) SEMAGLUTIDE 1MG/0.75ML INJ PEN 3ML INJECT 1MG UNDER ACTIVE THE SKIN EVERY WEEK FOR DIABETES 21) SKIN PREP WIPE, S&N #[id number] USE 1 WIPE TOPICALLY ACTIVE THREE TIMES A WEEK REPLACES SKIN BARRIER FILM DUE TO BACKORDER 22) SPIRONOLACTONE 25MG TAB TAKE ONE TABLET BY MOUTH ACTIVE EVERY DAY FOR HEART FAILURE 23) TAZAROTENE 0.1% TOP CREAM APPLY THIN LAYER TOPICALLY ACTIVE AT BEDTIME TO THE FEET WITH THE 40% UREA CREAM, UNDER OCCLUSION DIRECTED 24) TRAZODONE HCL 50MG TAB TAKE ONE TABLET BY MOUTH AT ACTIVE BEDTIME FOR SLEEP 25) TRIAMCINOLONE ACETONIDE 0.1% OINT APPLY THIN LAYER ACTIVE TOPICALLY TWICE A DAY AVOID FACE,GROIN & ARMPITS *FOR EXTERNAL USE ONLY APPLY TO INTACT SKIN ON LOWER LEGS AFTER DILUTE VINEGAR OR VASHE SOAKS. WRAP WITH KERLIX. 26) UNDERPAD,BED 23IN X 36IN PLASTIC BACK USE CHUX ACTIVE DIRECTED 27) UREA 40% CREAM APPLY THIN LAYER TOPICALLY EVERY DAY ACTIVE DIRECTED FOR THICK SKIN 28) VANICREAM TOP CREAM APPLY THIN LAYER TOPICALLY EVERY ACTIVE DAY IDEALLY WITHIN 3 MINUTES AFTER BATH OR SHOWER. TO ALL AREAS OF SKIN FOR MOISTURIZER FOR DRY SKIN Active Non-VA Medications Status 1) Non-VA KETOCONAZOLE SHAMPOO 2%SHAMPOO TOPICALLY ACTIVE 2) Non-VA LIDOCAINE 5% PATCH 1 PATCH TOPICALLY ACTIVE 30 Total Medications MEDICATION RECONCILIATION: The medication list above was reviewed with the patient/surrogate and if changes are indicated they are listed above. Vitals: Temperature: 98.4 F [36.9 C] (08/13/2023 11:00) Pulse: 81 (08/13/2023 11:00) Respirations: 18 (08/13/2023 11:00) Blood Pressure: 120/77 (08/13/2023 11:00) Pain: 0 (08/13/2023 11:00) RR: unlabored at rest O2 Sat:95% (08/13/2023 11:00) Weight: 364 lb [165.11 kg] (07/07/2023 08:02) Body Mass Index: 44.4 Measurement DT WEIGHT LB(KG)[BMI] 07/07/2023 08:02 364(165.11)[44*] 07/02/2023 13:54 363.5(164.88)[44*] 05/02/2023 13:12 379(171.91)[45*] PHYSICAL EXAM: General: Alert, cooperative, alert and oriented x3, in no acute distress HEENT: Atraumatic and normocephalic LUNGS: Lung sounds clear, wheezing (chronic), normal expansion, respirations unlabored HEART: Regular, S1, S2, no murmur, rub or gallop ABDOMEN: Soft, nontender, nondistended, bowel sounds present EXTREMITIES: warm, trace edema bilateral lower legs, pulses present bilaterally PSYCHOLOGICAL: Normal affect LABS: ---- SODIUM 142 (08/13/23) POTASSIUM 4.1 (08/13/23) CHLORIDE 106 (08/13/23) CO2 25 (08/13/23) GLUCOSE 102 H (08/13/23) UREA NITROGEN 16 (08/13/23) CREATININE 1.0 (08/13/23) ANION GAP: EGFR (02/21) 08/02/21 @ 1412 83 CREATININE EGFR (CKD-EPI) 08/13/23 @ 1049 79 MAGNESIUM 2.0 (08/13/23) CALCIUM 9.3 (08/13/23) PO4____ CREATININE 1.0 PLASMA (08/13/23 10:49) 1.0 PLASMA (07/10/23 05:30) 1.0 PLASMA (07/09/23 13:54) SLT - Lab Tests Selected Collection DT Specimen Test Name Result Units Ref Range 08/13/2023 10:49 PLASMA BNP 29 pg/mL Ref: <=99 07/10/2023 05:30 PLASMA BNP 25 pg/mL Ref: <=99 12/27/2022 13:33 PLASMA BNP 103 H pg/mL Ref: <=99 11/27/2022 10:53 PLASMA BNP 92 pg/mL Ref: <=99 11/04/2022 06:14 PLASMA BNP 24 pg/mL Ref: <=99 10/28/2022 23:06 PLASMA BNP 137 H pg/mL Ref: <=99 10/28/2022 16:17 PLASMA BNP 129 H pg/mL Ref: <=99 TSH 1.00 (11/06/22) IRON 78 (11/27/22) TRANSFERRIN 212 (11/27/22) TIBC,CALCULATED 265 (11/27/22) IRON SATURATION 29 (11/27/22) FERRITIN 372.2 H (11/27/22) Liver Panel: ALBUMIN 3.6 (07/08/23) ALK PHOSPHATASE 96 (11/27/22) SGPT 21 (11/27/22) SGOT 14 (11/27/22) BILIRUBIN, TOTAL 0.5 (11/27/22) No data available for: GAMMA GTP LIPASE____ AMYLASE,TOTAL____ Collection DT Spec WBC HGB HCT PLT MCV NEUT LYMPHS 07/07/2023 06:56 BLOOD 9.78 16.4 48.1 244 94.7 01/22/2023 10:52 BLOOD 9.21 15.1 46.7 262 94.3 11/27/2022 10:53 BLOOD 8.94 14.2 43.3 249 94.1 Today's Labs: GLUCOSE: 102 H UREA NITROGEN: 16 CREATININE: 1.0 SODIUM: 142 POTASSIUM: 4.1 CHLORIDE: 106 CO2: 25 CALCIUM: 9.3 MAGNESIUM: 2.0 ANION GAP: 11 CREATININE EGFR (CKD-EPI): 79 B-TYPE NATRIURETIC PEPTIDE: 29 GLUCOSE: 102 H UREA NITROGEN: 16 CREATININE: 1.0 SODIUM: 142 POTASSIUM: 4.1 CHLORIDE: 106 CO2: 25 CALCIUM: 9.3 MAGNESIUM: 2.0 ANION GAP: 11 CREATININE EGFR (CKD-EPI): 79 B-TYPE NATRIURETIC PEPTIDE: 29 Assessment/Plan: # Heart failure: Heart failure with preserved ejection fraction. He has no symptoms of acute fluid retention on exam today. Weight gain is from stopping Ozempic and more calories. BNP normal. - EF: 55 to 60% - Etiology: Hypertension, obesity, atrial fibrillation with rapid ventricular response - Stage: C - NYHA class: III -- ACEi/ARB/ARNI: Losartan 50 mg daily -- BB: not prescribed -- MRA: spironolactone 25 mg daily -- SGLT-2: Empagliflozin 12.5 mg daily -- Diuretic: Furosemide to 80 mg daily -- Potassium - Medications Optimized: yes, HFpEF - Last ischemic workup: Stress test March 25, 2023 negative for ischemia - Sleep medicine evaluation: He snores loudly and thinks that he has sleep apnea but declines evaluation since he does not want to treat - Device: Not indicated - Telehealth: Yes, data reviewed today - Last heart failure hospitalization: October 2022 - Cardiac rehab: no - Iron studies: IRON 78 (11/27/22) TRANSFERRIN 212 (11/27/22) TIBC,CALCULATED 265 (11/27/22) IRON SATURATION 29 (11/27/22) #Persistent atrial fibrillation: He had an unsuccessful cardioversion on January 22, 2023. ZIO monitor showed atrial fibrillation with average heart rate of 98 bpm. Ventricular rate was greater than 110 bpm 15%. He was hospitalized for dofetilide initiation on 07/07/2023. Heart rate regular today. He continues to take apixaban. #Hypertension: Clinic blood pressure stable today at 120/77. He has had some hypotension on home telehealth but I question accuracy since he is asymptomatic and BPs improve on recheck. I have asked home telehealth to monitor closely and if he continues to have systolic blood pressures less than 90, will need to adjust medications. Summary of Plan: -No medication changes today -I sent a note to his pharmacy at his request since he is running low on gabapentin. Follow Up: --------- - Follow up in heart failure clinic in 6 months - EP [facility] SAWYER on October 06 Assessment and plan discussed with in full detail with all questions answered. Total time spent in patient care was 35 minutes including chart review, diagnostic/testing review, patient interview/examination, counseling and documentation. Thank you for allowing me to participate in the care of GILDA CARRILLO. Please contact me with any questions or concerns: Jacob Bailey NP [facility], Department of Cardiology HF [employer] school hvac r instructor [phone], Option 3 /es/ JACOB BAILEY DIRECT MAIL MANAGER Signed: 08/13/2023 11:57 JACOB BAILEY [facility] Aug 13, 2023 11:01 AM INTERNAL MEDICINE OUTPATIENT NOTE: LOCAL TITLE: MEDICINE CLINIC NURSING NOTE STANDARD TITLE: INTERNAL MEDICINE OUTPATIENT NOTE DATE OF NOTE: AUG 13, 2023@11:01 ENTRY DATE: AUG 13, 2023@11:01:58 AUTHOR: CHELSI ABRAMS EXP COSIGNER: URGENCY: STATUS: COMPLETED TYPE OF VISIT: Appointment Check In Type of appointment: In-person appointment REASON FOR VISIT: scheduled visit ALLERGIES: Patient has answered NKA VITAL SIGNS: Blood Pressure: 120/77 (08/13/2023 11:00) Pulse: 81 (08/13/2023 11:00) Respiration: 18 (08/13/2023 11:00) Temperature: 98.4 F [36.9 C] (08/13/2023 11:00) Weight: 364 lb [165.11 kg] (07/07/2023 08:02) Height: 76 in [193.0 cm] (07/02/2023 13:54) BMI: 44.4 O2 Sat: 95% (08/13/2023 11:00) Pain: 0 (08/13/2023 11:00) PAIN SCREEN: Patient is not having significant pain that they wish to discuss with their provider today. MEDICATION Over the Counter/Herbal Medications: The patient states that they take some outside medications and/or herbals. /mateo/ CHELSI ABRAMS LPN LPN Signed: 08/13/2023 11:02 CHELSI ABRAMS [facility]
--- OUTSIDE RECORDS SUMMARY | 2024-03-25 10:31 | XMS_ITS | Encounter Summary ---
Author Name [facility] [facility] Address [address] [place] [id number] Care Team Providers Care Director Cost Name Role Phone GELACIO MICHEL Primary Care Provider Unava ilable Insurance Providers: All historical and current Section [...] PART A Jul 21, 2014 PART A [id number] [phone] Miguelito CARRILLO PATIENT Selected Encounter This section includes the information on record at [place] for the Encounter. Date/Time Encounter Type Encounter Description Reason Provider Source Aug 18, 2023 02:00 PM SELF CARE MNGMENT TRAINING OCCUPATIONAL THERAPY ICD-10-CM Z74.09 Other reduced mobility ELIO FRANCO E Encounter Template Text not used by [place] Assessments - Encounter Diagnoses This section includes the primary and secondary diagnoses documented for the Encounter. Date/Time Primary/Secondary Diagnosis Diagnosis Name Provider Source Aug 18, 2023 02:23 PM PRIMARY Other reduced mobility ELIO FRANCO [facility] Plan of Treatment: Future Appointments (+ 6 months) and Future Tests (+/- 45 days) The Plan of Treatment section includes future care activities [facility] the [facility]. This section includes future appointments and future orders which are active, pending or scheduled. Future Appointments This section includes appointments that were scheduled to occur 6 months from the date of the Encounter, up to a maximum of 20 appointments. The data comes from all [facility] facilities. Appointment Date/Time Appointment Type Appointme nt Facility Name Sep 16, 2023 03:00 PM AMBULATORY - NONE [facility] Sep 17, 2023 02:30 PM [facility] Oct 07, 2023 12:15 PM [place] [facility] Oct 07, 2023 01:00 PM [facility] Oct 07, 2023 02:00 PM [facility] [place] [facility] Oct 27, 2023 11:30 AM AMBULATORY - NONE [facility] Nov 05, 2023 01:30 PM AMBULATORY - NONE [facility] December 01, 2023 12:30 PM [place] [facility] December 07, 2023 07:00 AM [place] [facility] Dec 25, 2023 02:20 PM [place] [facility] Dec 25, 2023 02:45 PM [place] [facility] Dec 30, 2023 01:30 PM [place] [facility] Jan 06, 2024 12:30 PM [place] [facility] Jan 06, 2024 01:00 PM [place] [facility] Jan 06, 2024 02:00 PM [place] [facility] Jan 06, 2024 02:45 PM [place] [facility] Jan 08, 2024 07:45 PM [place] [facility] Jan 12, 2024 01:15 PM [place] [facility] Jan 13, 2024 03:00 PM AMBULATORY - NONE [facility] Jan 21, 2024 11:30 AM [facility]ORY - [facility]IC[facility] Active, Pending, and Scheduled Orders This section includes a listing of several types of active, pending, and scheduled orders, including clinic medications orders, diagnostic test orders, procedure orders and consult orders; where the start date of the order is 45 days before the date of the Encounter or 45 days after the date of theEncounter. The data comes from all [place] treatment facilities. Test Date/Time Test Type Test Details Facility Name Jul 09, 2023 04:05 PM Laboratory - Chemi stry Order BASIC METABOLIC PANEL+MG PLASMA WC ONCE [facility] Sep 29, 2023 12:00 AM Laboratory - Chemi stry Order BASIC METABOLIC PANEL+MG PLASMA SP ONCE [facility] Lab Results: +/- 30 days of the encounter This section includes the Chemistry and Hematology Lab Results on record with [place] for the patient. Radiology Reports and Pathology Reports are provided separately, in subsequent sections. Lab Results This section contains the Chemistry/Hematology Results that were resulted 30 days before or 30 daysafter the date of the Encounter. Date/Time Source Result Type Result - Unit Interpretation Reference Range Comment Aug 13, 2023 10:49 AM [facility] BNP Specimen Type: PLASMA No comment entered. Ordering Provider: FLAQUITO VIRGEN Report Released Date/Time: Jul 10, 2023 07:52 AM Reporting Lab: [facility] [id number] Performing Lab: [facility] [id number] BNP 29 pg/mL <99 Aug 13, 2023 10:49 AM [facility] BASIC METABOLIC PANEL+MG Specimen Type: PLASMA No comment entered. Ordering Provider: FLAQUITO VIRGEN Report Released Date/Time: Jul 10, 2023 07:52 AM Reporting Lab: [facility] [id number] Performing Lab: [facility] [id number] CREATININE 1.0 mg/dL 0.7-1.2 UREA NITROGEN 16 mg/dL 8-26 GLUCOSE 102 mg/dL H 70-100 SODIUM 142 mmol/L 136-145 POTASSIUM 4.1 mmol/L 3.5-5.1 CHLORIDE 106 mmol/L 98-107 CO2 25 mmol/L 22-29 CALCIUM 9.3 mg/dL 8.4-10.2 MAGNESIUM 2.0 mg/dL 1.6-2.6 ANION GAP 11 mmol/L 5-15 .CREAT EGFR(CKD-EPI ) 79 >60 Social History: Smoking Status (Most current) and Tobacco Use (All prior to encounter date) This section includes the most current, and the historical, smoking and tobacco- related health factors from the [place] facility where the Encounter took place. Current Smoking Status This section includes the most current smoking, or tobacco-related health factor, from the [facility] where the Encounter took place. Date/Time Current Smoking Status Comment Tasha woods Dec 19, 2020 12:07 PM VA-TOBACCO FORMER USER [facility] Tobacco Use History This section includes a history of the smoking, or tobacco-related health factors, that were collected on or before the date of the Encounter. The data comes from the [place] facility where the Encounter took place. Date/Time Smoking Status/Tobacco Use Comment F acility Dec 19, 2020 12:07 PM VA-TOBACCO QUIT 5 TO < 15 YRS [facility] Aug 02, 2015 09:49 AM CURRENT TOBACCO USER [facility] Jun 06, 2014 08:51 AM CURRENT TOBACCO USER [facility] May 04, 2013 09:29 AM CURRENT TOBACCO USER [facility] Apr 24, 2012 07:40 AM CURRENT TOBACCO USER [facility] Advance Directives: All historical and current Section Date Range: From patient's date of to the date document was created. This section includes ALL of a patient's completed or amended [place] Advance and Rescinded Directives. The entries below indicate that a directive exists for the patient, but an actual copy is not included with this document. The data comes from all [facility]. Date Advance Directives Provider Source Jan 02, 2023 STATE-AUTHORIZED PORTABLE ORDERS [facility] Encounter Notes: All associated encounter notes This section contains the clinical notes associated to the Encounter. Date/Time Encounter Note(s) Provider Source Aug 18, 2023 01:55 PM OCCUPATIONAL THERA PY CONSULT: LOCAL TITLE: OCCUPATIONAL THERAPY CONSULT STANDARD TITLE: OCCUPATIONAL THERAPY CONSULT DATE OF NOTE: AUG 18, 2023@13:55 ENTRY DATE: AUG 18, 2023@13:55:47 AUTHOR: ELIO FRANCO EXP COSIGNER: URGENCY: STATUS: COMPLETED OCCUPATIONAL THERAPY EQUIPMENT CONSULT Ordering provider: GELACIO MICHEL Consult request: Adapted Equipment Diagnosis: Other Reduced Mobility(ICD-10-CM Z74.09) Encounter: -OT Evaluation: Low complexity: 10 mins. -Self Care Trainin mins. SUBJECTIVE: I was told you could get me a lift chair ASSESSMENT: Vet is a 73 yom referred to OT to evaluate adaptive equipment needs to increase safety and independence at home. Vet arrives to clinic alone in a motorized scooter. Reviewed PLOF and Home Set-up and details are listed below. In summary, emelia is Ind with most ADL's, requiring assist only for bathing, for which he has a WIRE BASKET MAKER come 2x/wk to assist with bathing, and perform some IADL tasks. Emelia reports mod Ind with fxnl mobility, using a Rollator in the home and scooter in the community. His WIRE BASKET MAKER helps with cleaning and laundry but vinay is Ind with cooking. Krystlet reports his primary concern is getting up from his recliner, which he sleeps in. Vet educated on DME/AR options to increase his ability to safely complete these transfers, inclusing a seat riser, tension transfer pole, cusions, and chair leg risers, but defers each item explaining that he doesn't think they would help enough. requests the [facility] provide a [facility] lift chair/recliner. informed that the [facility] cannot provide a lift chair at this time and, after sig explanation, reports understanding. Bypro again denies trialing the other AE options expressed earlier, and denies any further skilled OT needs at this time. EQUIPMENT ORDERED FROM PROSTHETICS: - None GOALS: 1.Vet will identify areas of concern in the home to assist with equipment selection in order to maximize safety and (I) by the end of session. - MET PLAN: No other OT needs at this time. D/C from OT. Education: Vet indicates readiness to learn, verbalizes understanding, agreement and satisfaction with the treatment plan. Denies further questions. ___ OBJECTIVE: Home Environment: Lives alone in [place] - Type of Home: Split level home. Has stair glide. - Accessibility to Home: Has wheelchair ramp to enter - Bathroom Set-up: Tub/shower with tub bench. Has grab bars in shower and tension pole on the outside of the tub. Has RTS with grab bars by toilet. - DME available in Home: Rollator, FWW, Power scooter. Has hospital bed, but doesn't use due to hip pain. Previous Level of Function: - ADL's: Gets assist from WIRE BASKET MAKER for showers, Ind with dressing, grooming, self-feeding. - IADL's: WIRE BASKET MAKER assists with cleaning and laundry. Vet is Ind with cooking. Manages his own medications and finances. - Fxnl Mobility: Mod Ind with rollator in the house. Uses scooter in the community. - Community Accessibility: Ind with driving. - Employment: Retired. - Hobbies/Interests: Likes to watch tv, read books. Level of Support: Has a WIRE BASKET MAKER that comes 2x/wk to assist with shower and some IADL's. Has HHN come 3x/wk to check his feet (wounds). ___ OCCUPATIONAL THERAPY EVALUATION COMPLEXITY Identifying and reporting the complexity level of an evaluation focuses on the first three of these factors--profile and history, assessment and determination of deficts, and clinical decision making. These three factors must be scored and defensible documentation written to support the choice of a level. (Information taken from: https://www.[facility]ota.org) PROFILE AND HISTORY (including chart view) Brief history of medical and/or therapy records relating to the presenting problem (low complexity) ASSESSMENT & PERFORMANCE DEFICITS (select all that apply): Inability to complete activities due to the lack of skills in one or more of the categories (physical, cognitive, or psychosocial skills). Physical: strength, Cognition: MAGANA: 1-3 performance deficits = Low Complexity LEVEL OF CLINICAL DECISION MAKING Commorbidities affect occupational performance: Yes (moderate or high complexity) Modifications of tasks or assistance to enable completion of evaluation: Not necessary (Low complexity) Level of Clinical Decision Making: Problem-focused assessment(s), consideration of a limited number of treatment options, presents with no comorbidities and modification of tasks or assistance is not necessary.(Low complexity) OVERALL EVALUATION COMPLEXITY: Overall rating is the lowest of the three components (Profile & History, Assessment of Occupational Performance & Performance Deficits, and Level of Clinical Decision Making). In order to move to a higher level of evalaution, all three components must be of the higher level. LOW COMPLEXITY Brief history of medical/or therapy records relating to the presenting problem. An assessement(s) that identifies 1-3 performance deficits that result in activity limitation and/or participating restrictions. Includes analysis of the occupational profile, analysis of date from problem- focused assessment(s), and consideration of a limited number of treatment options. Patient presents with no comorbidities that affect occupational performance. Modification of tasks or assistance with assessment(s) is not necessary to enable completion of evaluation component. /mateo/ ELIO FRANCO Occupational Therapist Signed: 08/18/2023 14:24 ELIO FRANCO [facility]
--- OUTSIDE RECORDS SUMMARY | 2024-03-25 10:31 | XMS_ITS | Encounter Summary ---
Author Name [facility] Organization [facility] Address [address] [place] [address] Care Team Providers Care Pulp House Supervisor Name Role Phone GELACIO MICHEL Primary Care [...] PART A Jul 21, 2014 PART A [id number] [phone] Miguelito CARRILLO PATIENT Selected Encounter This section includes the information on record at [place] for the Encounter. Date/Time Encounter Type Encounter Description Reason Provider Source Sep 17, 2023 02:30 PM OFFICE O/P EST MOD 30 MIN WEIGHT MGMT & MOVE! PROG - IND ICD-10-CM E66.9 Obesity, unspecified NIRU BOWMAN Homero Encounter Template Text not used by [place] Assessments - Encounter Diagnoses This section includes the primary and secondary diagnoses documented for the Encounter. Date/Time Primary/Secondary Diagnosis Diagnosis Name Provider Source Sep 17, 2023 02:59 PM PRIMARY Obesity, unspecified NIRU BOWMAN [facility] Plan of Treatment: Future Appointments (+ 6 months) and Future Tests (+/- 45 days) The Plan of Treatment section includes future care activities for the patient [facility] This section includes future appointments and future orders which are active, pending or scheduled. Future Appointments This section includes appointments that were scheduled to occur 6 months from the date of the Encounter, up to a maximum of 20 appointments. The data comes from all [facility]. Appointment Date/Time Appointment Type Appointme nt Facility Name Oct 07, 2023 12:15 PM [facility] Oct 07, 2023 01:00 PM [facility] Oct 07, 2023 02:00 PM [facility] Oct 27, 2023 11:30 AM [facility]ATORY - NONE [facility] Nov 05, 2023 01:30 PM AM[facility]ATORY - NONE [facility] December 01, 2023 12:30 PM AMBULATORY - SURGERY [facility] December 07, 2023 07:00 AM [facility] Dec 25, 2023 02:20 PM AMBULATORY - SURGERY [facility] Dec 25, 2023 02:45 PM [facility] Dec 30, 2023 01:30 PM [facility] Jan 06, 2024 12:30 PM [facility] Jan 06, 2024 01:00 [facility] Jan 06, 2024 02:00 [facility] Jan 06, 2024 02:45 PM [facility] Jan 08, 2024 07:45 PM [facility] Jan 12, 2024 01:15 PM [facility] Jan 13, 2024 03:00 PM [facility]ORY - NONE [facility] Jan 21, 2024 11:30 AM [facility] Feb 04, 2024 01:30 PM [facility] Feb 04, 2024 02:30 PM [facility] Active, Pending, and Scheduled Orders This section includes a listing of several types of active, pending, and scheduled orders, including clinic medications orders, diagnostic test orders, procedure orders and consult orders; where the start date of the order is 45 days before the date of the Encounter or 45 days after the date of theEncounter. The data comes from all [place] treatment facilities. Test Date/Time Test Type Test Details Facility Name Sep 29, 2023 12:00 AM Laboratory - Chemi stry Order BASIC METABOLIC PANEL+MG PLASMA SP ONCE [facility] Lab Results: +/- 30 days of the encounter This section includes the Chemistry and Hematology Lab Results on record with [place] for the patient. Radiology Reports and Pathology Reports are provided separately, in subsequent sections. Lab Results This section contains the Chemistry/Hematology Results that were resulted 30 days before or 30 daysafter the date of the Encounter. Date/Time Source Result Type Result - Unit Interpretation Reference Range Comment Oct 07, 2023 11:36 AM [facility] BASIC METABOLIC PANEL+MG Specimen Type: PLASMA No comment entered. Ordering Provider: HITESH HOLGUIN Report Released Date/Time: Jul 21, 2023 11:36 AM Reporting Lab: [facility] [id number] Performing Lab: [facility] [id number] CREATININE 1.2 mg/dL 0.7-1.2 UREA NITROGEN 25 mg/dL 8-26 GLUCOSE 123 mg/dL H 70-100 SODIUM 138 mmol/L 136-145 POTASSIUM 3.8 mmol/L 3.5-5.1 CHLORIDE 98 mmol/L 98-107 CO2 28 mmol/L 22-29 CALCIUM 9.8 mg/dL 8.4-10.2 MAGNESIUM 2.3 mg/dL 1.6-2.6 ANION GAP 12 mmol/L 5-15 .CREAT EGFR(CKD-EPI ) 63 >60 Social History: Smoking Status (Most current) and Tobacco Use (All prior to encounter date) This section includes the most current, and the historical, smoking and tobacco- related health factors from the [place] facility where the Encounter took place. Current Smoking Status This section includes the most current smoking, or tobacco-related health factor, from the [place] facility where the Encounter took place. Date/Time Current Smoking Status Comment Tasha woods Dec 19, 2020 12:07 PM VA-TOBACCO QUIT 5 TO < 15 YRS [facility] Tobacco Use History This section includes a history of the smoking, or tobacco-related health factors, that were collected on or before the date of the Encounter. The data comes from the [place] facility where the Encounter took place. Date/Time Smoking Status/Tobacco Use Comment F acility Dec 19, 2020 12:07 PM VA-TOBACCO QUIT 5 TO < 15 YRS [facility] Aug 02, 2015 09:49 AM CURRENT TOBACCO USER [facility] Jun 06, 2014 08:51 AM CURRENT TOBACCO USER [facility] May 04, 2013 09:29 AM CURRENT TOBACCO USER [facility] Apr 24, 2012 07:40 AM CURRENT TOBACCO USER [facility] Advance Directives: All historical and current Section Date Range: From patient's date of to the date document was created. This section includes ALL of a patient's completed or amended [place] Advance and Rescinded Directives. The entries below indicate that a directive exists for the patient, but an actual copy is not included with this document. The data comes from all [facility]. Date Advance Directives Provider Source Jan 02, 2023 STATE-AUTHORIZED PORTABLE ORDERS [facility] Encounter Notes: All associated encounter notes This section contains the clinical notes associated to the Encounter. Date/Time Encounter Note(s) Provider Source Sep 17, 2023 02:14 PM ENDOCRINOLOGY ATTE NDING NOTE: LOCAL TITLE: METABOLIC CLINIC NOTE STANDARD TITLE: ENDOCRINOLOGY ATTENDING NOTE DATE OF NOTE: SEP 17, 2023@14:14 ENTRY DATE: SEP 17, 2023@14:14:05 AUTHOR: NIRU BOWMANIGNER: URGENCY: STATUS: COMPLETED [facility] Note Patient is followed for treatment of obesity associated with DM-2, Hypertension. . BMI: 44.4 Todays weight: 364 lb [165.11 kg] (07/07/2023 08:02) Weights past 3 months Measurement DT WEIGHT LB(KG)[BMI] 07/07/2023 08:02 364(165.11)[44*] 07/02/2023 13:54 363.5(164.88)[44*] HPI Patient is here for follow up for weight loss management Patient is currently on Ozempic 1 mg weekly He lost about 30 lbs. He feels better He also mentions that he has heart failure and he has been gaining more water now a days. Interval history: Weight change: now is 360 lbs. not changing significantly retaining a lot fluid. unsure about his dry weight. Medication effects and side effects: semaglutide 1 mg [id number]. diarrhea couple times, not very severe Patient is working on the following goal about food: Trying hard to adalberto a watch on his meals. He does have some cheat days issues with sugar craving. also portion control Patient is working on the following goal about activity: He is wheelchair bound Blood Pressure: 120/77 (08/13/2023 11:00) Active Outpatient Medications (including Supplies): A & D OINT APPLY LIBERALLY TO GROIN AND BUTTOCKS TOPICALLY ACTIVE DIRECTED INTERTRIGO ACETAMINOPHEN 500MG TAB TAKE TWO TABLETS BY MOUTH THREE ACTIVE TIMES A DAY FOR PAIN *NOT TO EXCEED 4000MG IN 24 HOURS FROM ALL SOURCES* ALBUTEROL 3/IPRATROP 0.5MG/3ML INHL 3ML INHALE 3ML IN ACTIVE NEBULIZER BY INHALATION EVERY 4 HOURS NEEDED FOR SHORTNESS OF BREATH ALBUTEROL 90MCG (CFC-F) 200D ORAL INHL INHALE 2 PUFFS BY ACTIVE INHALATION FOUR TIMES A DAY NEEDED FOR SHORTNESS OF BREATH SHAKE WELL (FOR IMMEDIATE RELIEF). APIXABAN 5MG TAB TAKE ONE TABLET BY MOUTH EVERY 12 HOURS ACTIVE TO TREAT AND/OR PREVENT BLOOD CLOTS BRIEF,TRANQUILITY AUGUSTIN OVERNITE XXL#2118 USE BRIEF ACTIVE DIRECTED NEEDED CLEANSING CLOTH ATTENDS PKT USE 1 WASHCLOTH TOPICALLY ACTIVE DIRECTED DICLOFENAC NA 1% TOP GEL APPLY 2 GRAMS TOPICALLY TWO TIMES ACTIVE A DAY NEEDED FOR PAIN -USE DOSE CARD IN BOX TO MEASURE DOSE -MAXIMUM OF 32 GM PER DAY DIMETHICONE 12.5% TOP CREAM APPLY AFFECTED AREA TOPICALLY ACTIVE THREE TIMES A WEEK DOFETILIDE 250MCG CAP TAKE ONE CAPSULE BY MOUTH TWICE A ACTIVE DAY FOR ATRIAL FIBRILLATION DRESSING,MEPILEX BORDER HEEL 8.7INX9.1IN APPLY 1 DRESSING ACTIVE TOPICALLY THREE TIMES WEEKLY EMPAGLIFLOZIN 25MG TAB TAKE ONE-HALF TABLET BY MOUTH EVERY ACTIVE MORNING FOR HEART FAILURE FLUTICASONE PROP 50MCG 120D NASAL INHL SPRAY 2 SPRAYS IN ACTIVE EACH NOSTRIL EVERY DAY FOR NASAL DRIP FUROSEMIDE 40MG TAB TAKE TWO TABLETS BY MOUTH EVERY ACTIVE MORNING FOR EXCESS FLUID FOR WEIGHT GAIN OR WORSENING HEART FAILURE SYMPTOMS GABAPENTIN 400MG CAP TAKE ONE CAPSULE BY MOUTH FOUR TIMES ACTIVE A DAY FOR PAIN AND NUMBNESS GUAIFENESIN 200MG TAB TAKE TWO TABLETS BY MOUTH THREE ACTIVE TIMES A DAY FOR COPD/COUGH/MUCUS HYDROPHILIC (EQV AQUAPHOR) TOP OINT APPLY SMALL AMOUNT ACTIVE TOPICALLY THREE TIMES A WEEK FOR DRY SKIN KERLIX 4.5IN STERILE USE 1 BANDAGE TOPICALLY DIRECTED ACTIVE LOSARTAN 50MG TAB TAKE ONE TABLET BY MOUTH EVERY MORNING ACTIVE FOR HEART FAILURE NYSTATIN [id number] UNT/GM CREAM APPLY THIN LAYER TOPICALLY ACTIVE TWICE A DAY FUNGAL INFECTION EXTERNAL USE ONLY APPLY TO PANNUS POTASSIUM CL 20MEQ SA TAB (DISPERSIBLE) TAKE TWO TABLETS ACTIVE BY MOUTH TWICE A DAY FOR POTASSIUM SUPPLEMENT SEMAGLUTIDE 1MG/0.75ML INJ PEN 3ML INJECT 1MG UNDER THE ACTIVE SKIN EVERY WEEK FOR DIABETES SKIN PREP WIPE, S&N #[id number] USE 1 WIPE TOPICALLY THREE ACTIVE TIMES A WEEK REPLACES SKIN BARRIER FILM DUE TO BACKORDER SPIRONOLACTONE 25MG TAB TAKE ONE TABLET BY MOUTH EVERY DAY ACTIVE (S) FOR HEART FAILURE TAZAROTENE 0.1% TOP CREAM APPLY THIN LAYER TOPICALLY AT ACTIVE BEDTIME TO THE FEET WITH THE 40% UREA CREAM, UNDER OCCLUSION DIRECTED TRAZODONE HCL 50MG TAB TAKE ONE TABLET BY MOUTH AT BEDTIME ACTIVE FOR SLEEP TRIAMCINOLONE ACETONIDE 0.1% OINT APPLY THIN LAYER ACTIVE TOPICALLY TWICE A DAY AVOID FACE,GROIN & ARMPITS *FOR EXTERNAL USE ONLY APPLY TO INTACT SKIN ON LOWER LEGS AFTER DILUTE VINEGAR OR VASHE SOAKS. WRAP WITH KERLIX. UNDERPAD,BED 23IN X 36IN PLASTIC BACK USE CHUX ACTIVE DIRECTED UREA 40% CREAM APPLY THIN LAYER TOPICALLY EVERY DAY ACTIVE DIRECTED FOR THICK SKIN VANICREAM TOP CREAM APPLY THIN LAYER TOPICALLY EVERY DAY ACTIVE IDEALLY WITHIN 3 MINUTES AFTER BATH OR SHOWER. TO ALL AREAS OF SKIN FOR MOISTURIZER FOR DRY SKIN Non-VA KETOCONAZOLE SHAMPOO 2%SHAMPOO TOPICALLY ACTIVE Non-VA LIDOCAINE 5% PATCH 1 PATCH TOPICALLY ACTIVE Assessment and Plan: 1. Morbid obesity Patient is currently on Ozempic 1 mg weekly. He has lost about 30 lbs. He is working hard with his diet. His main issue with sugar craving. Also with portion control. - Advise to increase Semaglutide 1 mg-> 2 mg [id number] - Advise to continue to work with his diet to reduce carb intake - Advise against snacking - Reduce calorie intake to < 1800 ramona/day - Follow in 4 months as C visit Time spent 30 minutes D/w Attending, who agrees with the assessment and plan. Niru Bowman MD Endocrine Fellow [facility] This visit has been completed via telephone (VVC does not work) and the patient agrees to participate in this conference and has the required equipment at home to complete the visit. Any other participants present in the call: No Is Conference Locked: Yes Pt address and phone confirmed in chart in case of emergency: Yes /es/ NIRU BOWMAN ENDOCRINE FELLOW Signed: 09/17/2023 14:59 Receipt Acknowledged By: 09/17/2023 15:04 /mateo/ FREDIS REYNAGA M.D. Chief, Endocrinology and Metabolism [facility]
--- OUTSIDE RECORDS SUMMARY | 2024-03-25 10:31 | XMS_ITS | Encounter Summary ---
Author Name [facility] Organization [facility] Address [address] [place] [id number] Care Team Providers Care Telecommunications Facility Examiner Name Role Phone GELACIO MICHEL Primary Care [...] PART A Jul 21, 2014 PART A [id number] Miguelito CARRILLO PATIENT Selected Encounter This section includes the information on record at [place] for the Encounter. Date/Time Encounter Type Encounter Description Reason Provider Source Jul 07, 2023 01:53 PM Quaker of Cardiac Rhythm, Single HOSPITALIZATION ICD-10-CM L40.9 Psoriasis, unspecified TEAM,CARDS TWO IHE Encounter Template Text not used by [place] Assessments - Encounter Diagnoses This section includes the primary and secondary diagnoses documented for the Encounter. Date/Time Primary/Secondary Diagnosis Diagnosis Name Provider Source Jul 10, 2023 10:30 AM Diagnosis for Length of Stay Other persistent atrial fibrillation [facility] Jul 10, 2023 10:30 AM SECONDARY Atrioventricular block, first degree [facility] Jul 10, 2023 10:30 AM SECONDARY Bilateral primary osteoarthritis of hip [facility] Jul 10, 2023 10:30 AM SECONDARY Body mass index [BMI] 40.0-44.9, adult [facility] Jul 10, 2023 10:30 AM SECONDARY Chronic systolic (congestive) heart failure [facility] Jul 10, 2023 10:30 AM SECONDARY Erythema intertrigo [facility] Jul 10, 2023 10:30 AM SECONDARY Hypertensive heart disease with heart failure [facility] Jul 10, 2023 10:30 AM SECONDARY Hypokalemia [facility] Jul 10, 2023 10:30 AM SECONDARY 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 of 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 [facility] Jul 10, 2023 10:30 AM SECONDARY Morbid (severe) obesity due to excess calories [facility] Jul 10, 2023 10:30 AM SECONDARY Nonrheumatic tricuspid (valve) insufficiency [facility] Jul 10, 2023 10:30 AM SECONDARY Obstructive sleep apnea (adult) (pediatric) [facility] Jul 10, 2023 10:30 AM SECONDARY Other chronic pain [facility] Jul 10, 2023 10:30 AM SECONDARY Other specified disorders of veins [facility] Jul 10, 2023 10:30 AM SECONDARY Personal history of COVID-19 [facility] Jul 10, 2023 10:30 AM SECONDARY Personal history of nicotine dependence [facility] Jul 10, 2023 10:30 AM SECONDARY Psoriasis, unspecified [facility] Jul 10, 2023 10:30 AM SECONDARY Spondylosis w/o myelopathy or radiculopathy, lumbar region [facility] Jul 10, 2023 10:30 AM SECONDARY Type 2 diabetes mellitus without complications [facility] Plan of Treatment: Future Appointments (+ 6 months) and Future Tests (+/- 45 days) The Plan of Treatment section includes future care activities for the patient from all [facility]. This section includes future appointments and future orders which are active, pending or scheduled. Future Appointments This section includes appointments that were scheduled to occur 6 months from the date of the Encounter, up to a maximum of 20 appointments. The data comes from all [facility]. Appointment Date/Time Appointment Type Appointme nt Facility Name Jul 11, 2023 11:00 AM AMBULATORY - MEDICINE [facility] Aug 12, 2023 03:00 PM AMBULATORY - NONE [facility] Aug 13, 2023 10:30 AM AMBULATORY - MEDICINE [facility] Aug 13, 2023 11:30 AM AMBULATORY - MEDICINE [facility] Aug 18, 2023 02:00 PM AMBULATORY - REHAB MEDICIN E [facility] Sep 16, 2023 03:00 PM AMBULATORY - NONE [facility] Sep 17, 2023 02:30 PM AMBULATORY - MEDICINE [facility] Oct 07, 2023 12:15 PM AMBULATORY - MEDICINE [facility] Oct 07, 2023 01:00 PM AMBULATORY - MEDICINE [facility] Oct 07, 2023 02:00 PM AMBULATORY - MEDICINE [facility] Oct 27, 2023 11:30 AM AMBULATORY - NONE [facility] Nov 05, 2023 01:30 PM AMBULATORY - NONE [facility] December 01, 2023 12:30 PM AMBULATORY - SURGERY [facility] December 07, 2023 07:00 AM [facility] Dec 25, 2023 02:20 PM AMBULATORY - SURGERY [facility] Dec 25, 2023 02:45 PM AMBULATORY - SUR[facility] Dec 30, 2023 01:30 PM AMBULATORY - SURGERY [facility] Jan 06, 2024 12:30 PM AMBULATORY - MEDICINE [facility] Jan 06, 2024 01:00 PM AMBULATORY - MEDICINE [facility] Jan 06, 2024 02:00 PM AMBULATORY - MEDICINE [facility] Active, Pending, and Scheduled Orders This section includes a listing of several types of active, pending, and scheduled orders, including clinic medications orders, diagnostic test orders, procedure orders and consult orders; where the start date of the order is 45 days before the date of the Encounter or 45 days after the date of theEncounter. The data comes from all [place] treatment [facility]. Test Date/Time Test Type Test Details Facility Name Jul 09, 2023 04:05 PM Laboratory - Chemi stry Order BASIC METABOLIC PANEL+MG PLASMA WC ONCE [facility] Lab Results: +/- 30 days of the encounter This section includes the Chemistry and Hematology Lab Results on record with [facility] for the patient. Radiology Reports and Pathology Reports are provided separately, in subsequent sections. Lab Results This section contains the Chemistry/Hematology Results that were resulted 30 days before or 30 daysafter the date of the Encounter. Date/Time Source Result Type Result - Unit Interpretation Reference Range Comment Jul 10, 2023 07:19 AM [facility] BNP Specimen Type: PLASMA No comment entered. Ordering Provider: ASHLEY VELARDE Report Released Date/Time: Jul 09, 2023 01:25 PM Reporting Lab: [facility] [id number] Performing Lab: [facility] [phone] BNP 25 pg/mL <99 Jul 10, 2023 07:19 AM [facility] BASIC METABOLIC PANEL+MG Specimen Type: PLASMA No comment entered. Ordering Provider: ASHLEY VELARDE Report Released Date/Time: Jul 09, 2023 01:25 PM Reporting Lab: [facility] [phone] Performing Lab: [facility] [phone] CREATININE 1.0 mg/dL 0.7-1.2 UREA NITROGEN 14 mg/dL 8-26 GLUCOSE 92 mg/dL 70-100 SODIUM 140 mmol/L 136-145 POTASSIUM 4.1 mmol/L 3.5-5.1 CHLORIDE 102 mmol/L 98-107 CO2 25 mmol/L 22-29 CALCIUM 9.3 mg/dL 8.4-10.2 MAGNESIUM 2.1 mg/dL 1.6-2.6 ANION GAP 13 mmol/L 5-15 .CREAT EGFR(CKD-EPI) 79 >60 Jul 09, 2023 01:54 PM [facility] BASIC METABOLIC PANEL+MG Specimen Type: PLASMA No comment entered. Ordering Provider: ASHLEY VELARDE Report Released Date/Time: Jul 08, 2023 02:49 PM Reporting Lab: [facility] [phone] Performing Lab: [facility] [phone] CREATININE 1.0 mg/dL 0.7-1.2 UREA NITROGEN 12 mg/dL 8-26 GLUCOSE 108 mg/dL H 70-100 SODIUM 141 mmol/L 136-145 POTASSIUM 4.4 mmol/L 3.5-5.1 CHLORIDE 102 mmol/L 98-107 CO2 31 mmol/L H 22-29 CALCIUM 9.7 mg/dL 8.4-10.2 MAGNESIUM 2.0 mg/dL 1.6-2.6 ANION GAP 8 mmol/L 5-15 .CREAT EGFR(CKD-EPI) 79 >60 Jul 09, 2023 07:16 AM [facility] BASIC METABOLIC PANEL+MG Specimen Type: PLASMA No comment entered. Ordering Provider: ASHLEY VELARDE Report Released Date/Time: Jul 08, 2023 07:58 AM Reporting Lab: [facility] [id number] Performing Lab: [facility] [phone] CREATININE 1.0 mg/dL 0.7-1.2 UREA NITROGEN 14 mg/dL 8-26 GLUCOSE 99 mg/dL 70-100 SODIUM 139 mmol/L 136-145 POTASSIUM 3.4 mmol/L L 3.5-5.1 CHLORIDE 102 mmol/L 98-107 CO2 26 mmol/L 22-29 CALCIUM 9.2 mg/dL 8.4-10.2 MAGNESIUM 2.0 mg/dL 1.6-2.6 ANION GAP 11 mmol/L 5-15 .CREAT EGFR(CKD-EPI) 79 >60 Jul 08, 2023 03:08 PM [facility] BASIC METABOLIC PANEL+MG Specimen Type: PLASMA No comment entered. Ordering Provider: ASHLEY VELARDE Report Released Date/Time: Jul 08, 2023 10:12 AM Reporting Lab: [facility] [phone] Performing Lab: [facility] [phone] CREATININE 1.1 mg/dL 0.7-1.2 UREA NITROGEN 12 mg/dL 8-26 GLUCOSE 108 mg/dL H 70-100 SODIUM 138 mmol/L 136-145 POTASSIUM 3.6 mmol/L 3.5-5.1 CHLORIDE 102 mmol/L 98-107 CO2 28 mmol/L 22-29 CALCIUM 9.3 mg/dL 8.4-10.2 MAGNESIUM 2.0 mg/dL 1.6-2.6 ANION GAP 8 mmol/L 5-15 .CREAT EGFR(CKD-EPI) 71 >60 Jul 08, 2023 07:17 AM [facility] ALBUMIN Specimen Type: PLASMA No comment entered. Ordering Provider: ASHLEY VELARDE Report Released Date/Time: Jul 07, 2023 01:58 PM Reporting Lab: [facility] [phone] Performing Lab: [facility] [phone] ALBUMIN 3.6 g/dL 3.5-5.2 Jul 08, 2023 07:17 AM [facility] BASIC METABOLIC PANEL+MG Specimen Type: PLASMA No comment entered. Ordering Provider: ASHLEY VELARDE Report Released Date/Time: Jul 07, 2023 01:58 PM Reporting Lab: [facility] [phone] Performing Lab: [facility] [phone] CREATININE 1.1 mg/dL 0.7-1.2 UREA NITROGEN 14 mg/dL 8-26 GLUCOSE 105 mg/dL H 70-100 SODIUM 137 mmol/L 136-145 POTASSIUM 3.0 mmol/L L 3.5-5.1 CHLORIDE 100 mmol/L 98-107 CO2 27 mmol/L 22-29 CALCIUM 9.0 mg/dL 8.4-10.2 MAGNESIUM 1.9 mg/dL 1.6-2.6 ANION GAP 10 mmol/L 5-15 .CREAT EGFR(CKD-EPI) 71 >60 Jul 07, 2023 04:43 PM [facility] FINGERSTICK GLUCOSE Specimen Type: BLOOD Comment: Save Result Ordering Provider: ETHAN MOSS Report Released Date/Time: Jul 08, 2023 10:19 AM Reporting Lab: [facility] [phone] Performing Lab: [facility] [phone] FINGERSTICK GLUCOSE 116 mg/dL 70-100 Jul 07, 2023 06:56 AM [facility] PROTHROMBIN TIME/INR Specimen Type: PLASMA No comment entered. Ordering Provider: DELIA HOLGUIN Report Released Date/Time: Jun 26, 2023 12:06 PM Reporting Lab: [facility] [phone] Performing Lab: [facility] [phone] .INR 1.3 H 0.8-1.1 .PT 15.1 s H 9.4-12.5 Jul 07, 2023 06:56 AM [facility] BASIC METABOLIC PANEL+MG Specimen Type: PLASMA No comment entered. Ordering Provider: DELIA HOLGUIN Report Released Date/Time: Jun 26, 2023 11:50 AM Reporting Lab: [facility] [phone] Performing Lab: [facility] [address] CREATININE 1.1 mg/dL 0.7-1.2 UREA NITROGEN 14 mg/dL 8-26 GLUCOSE 104 mg/dL H 70-100 SODIUM 137 mmol/L 136-145 POTASSIUM 3.3 mmol/L L 3.5-5.1 CHLORIDE 99 mmol/L 98-107 CO2 24 mmol/L 22-29 CALCIUM 9.5 mg/dL 8.4-10.2 MAGNESIUM 2.2 mg/dL 1.6-2.6 ANION GAP 14 mmol/L 5-15 .CREAT EGFR(CKD-EPI) 71 >60 Jul 07, 2023 06:56 AM [facility] CBC Specimen Type: BLOOD No comment entered. Ordering Provider: DELIA HOLGUIN Report Released Date/Time: Jun 26, 2023 12:06 PM Reporting Lab: [facility] [phone] Performing Lab: [facility] [phone] WBC 9.78 10*3/uL 4.0-11.0 RBC 5.08 10*6/uL 4.6-6.2 HGB 16.4 g/dL 13.5-17.9 HCT 48.1 41-54 MCV 94.7 fL 80-100 MCH 32.3 pg 27-33 MCHC 34.1 g/dL 32.0-37.5 PLT 244 10*3/uL 150-400 MPV 10.0 fL 7.4-10.4 RDW 12.7 11.5-14.5 Jul 02, 2023 12:10 PM [facility] BASIC METABOLIC PANEL+MG Specimen Type: PLASMA No comment entered. Ordering Provider: FLAQUITO VIRGEN Report Released Date/Time: May 02, 2023 01:39 PM Reporting Lab: [facility] [phone] Performing Lab: [facility] [phone] CREATININE 1.1 mg/dL 0.7-1.2 UREA NITROGEN 16 mg/dL 8-26 GLUCOSE 101 mg/dL H 70-100 SODIUM 138 mmol/L 136-145 POTASSIUM 3.8 mmol/L 3.5-5.1 CHLORIDE 101 mmol/L 98-107 CO2 26 mmol/L 22-29 CALCIUM 9.4 mg/dL 8.4-10.2 MAGNESIUM 2.2 mg/dL 1.6-2.6 ANION GAP 11 mmol/L 5-15 .CREAT EGFR(CKD-EPI) 71 >60 Vital Signs: All taken on the encounter date This section contains inpatient and outpatient Vital Signs collected on the date of the Encounter. Date/Time Temperature Pulse Blood Pressure Respiratory Rate SP02 Pain Height Weight Body Mass Index Source Jul 07, 2023 07:50 PM 3 [facility] Jul 07, 2023 06:53 PM 4 [facility] Jul 07, 2023 02:52 PM 3 [facility] Jul 07, 2023 11:49 AM 96 /min 119/85 mm[Hg] 93 % [facility] Jul 07, 2023 11:36 AM 127 /min 79 % [facility] Social History: Smoking Status (Most current) and [...] place. Date/Time Current Smoking Status Comment Tasha ity Dec 19, 2020 12:07 PM VA-TOBACCO FORMER USER [facility] Tobacco Use History This section includes a history of the smoking, or tobacco-related health factors, that were collected on or before the date of the Encounter. The data comes from the [place] facility where the Encounter took place. Date/Time Smoking Status/Tobacco Use Comment F acamelia Dec 19, 2020 12:07 PM VA-TOBACCO QUIT 5 TO < 15 YRS [facility] Aug 02, 2015 09:49 AM CURRENT TOBACCO USER [facility] Jun 06, 2014 08:51 AM CURRENT TOBACCO USER [facility] May 04, 2013 09:29 AM CURRENT TOBACCO USER [facility] Apr 24, 2012 07:40 AM CURRENT TOBACCO USER [facility] Advance Directives: All historical and current Section Date Range: From patient's date of to the date document was created. This section includes ALL of a patient's completed or amended [place] Advance and Rescinded Directives. The entries below indicate that a directive exists for the patient, but an actual copy is not included with this document. The data comes from all [place] facilities. Date Advance Directives Provider Source Jan 02, 2023 STATE-AUTHORIZED PORTABLE ORDERS [facility] Encounter Notes: All associated encounter notes This section contains the clinical notes associated to the Encounter. Date/Time Encounter Note(s) Provider Source December 11, 2023 06:04 AM ADDENDUM: LOCAL TITLE: Addendum STANDARD TITLE: ADDENDUM DATE OF NOTE: DECEMBER 11, 2023@06:04:02 ENTRY DATE: DECEMBER 11, 2023@06:04:03 AUTHOR: LETY MOSCOSO COSIGNER: URGENCY: STATUS: COMPLETED RTC order for follow up on LE wound, please contact to scheduled. /mateo/ Lety Moscoso RN-BC, BSN, CWOCN Wound and Ostomy Care Nurse Signed: 12/11/2023 06:04 Receipt Acknowledged By: 12/12/2023 09:04 /mateo/ LUH HDEZ advanced medical technologist --- Original Document --- 07/08/23 WOC NURSE CONSULT: WOUND OSTOMY CONTINENCE (WOC) NURSING ASSESSMENT: REASON FOR CONSULT: has WOCN that does dressing changes MWF to chronic wounds. Please see and treat while inpatient. Thanks. Will be here through 07/10 ADMISSION DATE: 07/07/23, per cardiology admission note Gilda is admitted to the cardiology service for dofetilide initiation. ORION today ruled out LA thrombus. EKG this morning shows atrial fibrillation, rate 101 bpm, QT/QTc 356/461ms. labs are notable for serum sodium 137, hypokalemic with a serum potassium of 3.3, mag 2.2, serum creatinine 1.1. Plan is to start dofetilide today. Subjectively, Gilda has no complaints, and denies heart failure symptoms. PROBLEM LIST: Active problems - Computerized Problem List is the source for the followin. Hypertension (SNOMED CT 35096344) 2. Tachycardia - EKG 04/24/[address] acute [address] or T wave changes 3. Chronic back pain (SNOMED CT 045753698) - s/p laminectomy L2-4 '00 - disability parking permit application completed 03/10/18 with exp date 03/2023 4. Other and unspecified alcohol dependence, unspecified drinking behavior 5. Tobacco use (SNOMED CT 436914238) - quit >25yr use 6. SCREEN - c scope - AAA due 65-75 - DEXA due >70 7. 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 SURGERY Hx - laminectomy L2-4 '00 - tonsilectomy - adenoidectomy - R tympanoplasty 9. LUNG LESION - incidental on c-xray 04/21/12 ER @DC - CT chest 05/01/12 @[facility] - CT chest 05/25/12 @[facility] lung nodules, new effusion, rib frx - [...] 12. Solitary nodule of lung (SNOMED CT 568523261) 13. Chronic obstructive lung disease - PFT done 08/28/15 @[facility] 14. Degenerative joint disease - CT 06/08/2016; bilateral hips mod/severe 15. Benign localized hyperplasia of prostate 16. Arthritis of right hip 17. Lumbar spondylosis 18. Bilateral foot pain 19. Psoriasis 20. Venous stasis edema of bilateral lower limbs 21. Lipodermatosclerosis 22. Diabetes Mellitus Type 2 (SCT 23462498) 23. Diastolic dysfunction 24. Paroxysmal atrial fibrillation 25. Long-term current use of anticoagulant 26. Persistent atrial fibrillation WOUND HISTORY: known to [facility] team for wounds to BLE and buttocks. VERBAL CONSENT OBTAINED FOR PHOTOS, PLEASE SEE [facility] FOR PHOTOS ASSESSMENT: [place] lying in bed, A&O x4, pleasant and cooperative with assessment. Reports he is liking the Roho cushion very much. He does not like the shoes he was fitted for. FULL SKIN INSPECTION ASSESSMENT - skin intact to satinder. feet, heels, and lower extremities. small areas of built- up callus present to the R heel, gently exfoliated with warm water and gauze. discussed plan of care with , recommending aquaphor only to satinder. feet, heels, and lower legs. wound prefer to continue with the aquaphor and the urea cream as he has psoriasis and the plaques keep returning. He reports the urea cream has been the most effective treatment overall. Ok to continue with treatment plan per home routine. cleansed feet and legs and applied Remedy barrier cream, reapplied socks, no heel mepilex at this time - skin to groin intact, condom catheter in place, slightly rolled, preferred to leave in place rather than replace, education provided for pressure injury risk. skin intact to pannus, tele lead wires tightly pulled across pannus, rearranged wires. 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 will reassess area with a 72 hour follow up - Intergluteal cleft with intertrigo present, moist linear opening along the crease, moderate amount of sanguineous drainage present with cleaning. reports this is normal as he is on blood thinners. large moisture ridge along the buttocks, L>R, saw-toothed bulbous projections along the edge of each buttock, scattered moist open areas d/t MASD present within ridge. Cleansed skin thoroughly with bath wipes and applied liberal amount of Remedy Barrier paste. Will order Triad paste over open areas, once healed, will need on-going moisture protection with barrier creams. no sacral mepilex recommended at this time d/t increased moisture to the area, do not want to trap moisture into the gluteal cleft - skin intact to bilateral upper extremities and chest LOWER EXTREMITY ASSESSMENT: EDEMA: non-pitting PULSES: did not assess SKIN TEXTURE/STAINING: erythema present from feet through gaiter region, chronic skin changes d/t edema COMPRESSION: none in place, wears sensisocks at home ISSUED: Sensisocks XL issued February 2023 FOOT ASSESSMENT: WOUNDS: none DEFORMITIES: none SENSATION: present OFFLOADING: none in place, recommending use of heel facility manager histology SHOES: unable to assess DIABETIC: yes 10/28/2022 HEMOGLOBIN A1C 6.0 % 4.0 - 6.0 LABS: ALBUMIN 3.6 (07/08/23) WBC 9.78 (07/07/23) C-REACTIVE PROTEIN 24.45 H (11/05/22) IMAGING: Segmentals/ABIs from February 2020 1. Right lower extremity: FREDY: 1.11 TBI: 0.59 PVRs: Normal 2. Left lower extremity: FREDY: 1.13 TBI: 0.70 PVRs: Normal PRESSURE INJURY RISK ASSESSMENT: Score 15-18 Mild Risk NUTRITION: ALBUMIN 3.6 (07/08/23) BOWEL/BLADDER STATUS: continent DEVICES: IV, telemetry MATTRESS/BED: bariatric mattress ordered for SITTING SURFACES: Recommend a Curve Cushion when out of bed WOUND TREATMENT/INTERVENTIONS/PLAN OF CARE: ACTIVITY ORDERS/RECOMMENDATIONS: no restrictions related to wound care at this time PRESSURE INJURY PREVENTION: ordered 1) Daily skin inspection 2) Repositioning in Bed Q2 Hours a) As appropriate to prevent pressure to bony prominences. 3) Elevate heels off a) Using pillows or boots 4) Head of Bed<30 degrees (EXCEPT VAD protector or tube feeds) 5) Sitting Precautions a) Encourage pressure relief to bony prominences and use of cushions as appropriate. b)Curve Cushion for WC 6) Mobility a) Encourage safe ambulation with appropriate assistive devices 7) Moisture management a) Keep skin clean and dry using skin barrier for protection and ultrasorb chux for absorption. Use containment devices as needed. 8) Device safety: (oxygen tubing, other respiratory devices, c-collars, TLSO braces, splints, JENSEN wraps, etc. a) Inspect skin under ALL devices every shift 9) Patient education a) Provide patient/family education related to pressure ulcer prevention. COCCYX/SACRUM/BUTTOCKS PREVENTION ORDERS: - Position change q2h hours - CURVE CUSHION for chair when OOB, limit chair sitting to 2 hours - Mallory-cares: BID and PRN - CRITIC AID to buttocks if incontinent of stool - Z-GUARD for liquid stool. - Avoid briefs in bed, trial alt methods to contain urine or stool (condom Cath, penis pouch, Qivi system, scheduled toileting) SACRUM/BUTTOCKS WOUND: BID and PRN - Cleanse skin to buttocks, groin, and sacrogluteal cleft with bath wipes - Apply Triad paste to moisture ridge along buttocks and to sacrogluteal cleft over all open areas - Do not apply a sacral mepilex dressing, ok to leave MOISES HEEL PROTECTION: - Float heels with a HEEL SIXTH GRADE TEACHER while in bed BILATERAL HEEL CARES: QDAY and PRN - Cleanse feet with bath wipes or wash cloths with warm water gently exfoliating any plaques or callus build up from heels - Apply thin layer of urea cream - Apply thin layer of aquaphor - Apply socks - Elevate heels using a heel facility manager histology GOALS: - maintain skin integrity - manage moisture NEXT STEPS: - continue with diligent offloading of bony prominences EDUCATION: - Pressure Injury Relief - Skin care, hygiene, and use of barrier products DISCHARGE PLANNING HOMECARE AGENCY: [employer] [facility] [place] [address] [place] AUTH: [id number] VALID: 2023-06-09 thru 2023-12-06 SUPPLIES: - will order blue chux pads for home use per request - urea cream available in outpatient supply with refills available, reports he has aquaphor at home FOLLOW UP: [facility] will continue to follow /mateo/ ZULEMA PIKE RN, BSN, CWOCN Signed: 07/08/2023 11:07 07/10/2023 ADDENDUM STATUS: COMPLETED 48 hour follow up completed for the R flank as is d/c today. 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 No concerns, skin intact. Did notice a macular/papular red rash to the R side of the pannus while was turning, requested for bedside RN to notify provider for request for antifungal cream. [place] expressed concern for the posterior R calf, skin is intact, no concerns. WO will sign off at this time, please reconsult with any further concerns. /es/ ZULEMA PIKE RN, BSN, CWOCN Signed: 07/10/2023 09:34 LETY MOSCOSO [facility] Jul 12, 2023 12:05 PM SOCIAL WORK CONSULT: LOCAL TITLE: SOCIAL WORK CONSULT STANDARD TITLE: SOCIAL WORK CONSULT DATE OF NOTE: JUL 12, 2023@12:05 ENTRY DATE: JUL 12, 2023@12:05:10 AUTHOR: IDALIA LEONE EXP COSIGNER: URGENCY: STATUS: COMPLETED Order Information To Service: SOCIAL WORK (MEDICINE/PRIMARY CARE) INPT From Service: [facility] Requesting Provider: ASHLEY VELARDE Service is to be rendered on an INPATIENT basis Place: Bedside Urgency: Routine Clinically Ind. Date: Jul 07, 2023 DST ID: Orderable Item: SOCIAL WORK (MEDICINE/PRIMARY CARE) INPT Consult: Consult Request Reason For Request: Are patient and/or family aware that social work consult is being sent? Yes Which libertarian identified the need(s) presented in this consult? (may choose more than one) [place] Transportation Please describe:Need ride at discharge no longer inpatient. Consult closed. PCSW remains available. /mateo/ IDALIA LEONE [facility] HARP REPAIRER Signed: 07/12/2023 12:05 IDALIA LEONE [facility] Jul 10, 2023 11:06 AM NURSING INPATIENT NOTE: LOCAL TITLE: BELLO NURSING PROGRESS NOTE STANDARD TITLE: NURSING INPATIENT NOTE DATE OF NOTE: JUL 10, 2023@11:06 ENTRY DATE: JUL 10, 2023@11:06:25 AUTHOR: BHAVYA WILSON EXP COSIGNER: URGENCY: STATUS: COMPLETED Nursing Shift Note Nursing care provided from [id number] Highlights from shift: Afebrile, VSS on RA. Complained of Rt hip pain and improved with acetaminophen. Denies: SOB/headaches/dizziness. No N/V/D/constipation. Redness in panis area, [facility] requested that provider be notified and to send an antifungal cream home with patient; provider notified. and orders placed. Call light within reach and patient can make needs known. See ICCA for detailed assessment, Education provided on medication/cares this shift as needed SKIN REINSPECTION/REASSESSMENT SKIN INSPECTION: Skin Color: Usual for ethnicity Skin Temperature: Warm Skin Moisture: Normal Skin Turgor: Elastic (normal/immediate) INTERVENTIONS: No change in previous interventions as listed below Pressure Ulcer-Education 07/07/2023 Educate Importance Of Changing Position Provide Education On Cause/Prevention Provide Education Regarding Tx Plan Pressure Ulcer-Friction/Shear 07/07/2023 Elevate Head of Bed For Meals Head of Bed Below 30 Degrees When Not Eating Use Bed Trapeze Or Pull Sheet When Head of Bed Elevated Raise Knee Pressure Ulcer-Pressure Reducing 07/07/2023 Elevate Heels Frequent Position Changes Turn And Reposition Q2H Wheelchair Cushion RISK FACTORS THAT INCREASE RISK FOR DEVELOPING PRESSURE INJURIES The patient/resident does not have any additional risk factors. Localized abnormality: Other: Location(s): redness in panis area. Skin Interventions performed this shift: Device(s) removed and skin underneath was inspected. Head of Bed kept below 30 degrees unless otherwise ordered. Other: patient self turns /es/ DANYEL WILSON RN Signed: 07/10/2023 11:13 Desi WILSON [facility] Jul 10, 2023 10:30 AM DISCHARGE SUMMARY: LOCAL TITLE: Discharge Summary STANDARD TITLE: DISCHARGE SUMMARY DICT DATE: JUL 10, 2023@07:43 ENTRY DATE: JUL 10, 2023@07:43:07 DICTATED BY: ASHLEY VELARDE ATTENDING: RODOLFO SPARKS URGENCY: routine STATUS: COMPLETED Cardiology discharge Summary DRAFT UNTIL SIGNED BY ATTENDING Admission Date: Jun Discharge Date: Jun Discharge Destination: home PRIMARY DIAGNOSIS: #Status post dofetilide initiation #Persistent atrial fibrillation #Hypokalemia SECONDARY DIAGNOSES: #Heart failure with preserved ejection fraction #Hypertension #Severe chronic obstructive pulmonary disease #Type 2 diabetes #Chronic back pain #Lumbar spondylosis #Degenerative joint disease #Osteoarthritis #Morbid obesity #Chronic wounds Follow-up plan Issue: Status post dofetilide and DCCV, atrial fibrillation What is needed: Follow-up with EP as outpatient Who is responsible: Delia LOZA DIRECTOR OF SALES SUPPORT Issue: Heart failure preserved ejection fraction What is needed: Follow-up with CHF clinic 4 to 6 weeks Who is responsible: Brigitte Virgen NP, CHF clinic Issue: Presumed sleep apnea, chronic conditions What is needed: Outpatient sleep study, patient agreeable to this (ordered on discharge PCP to follow-up), follow-up with PCP as needed Who is responsible: PCP SUMMARY OF HOSPITAL COURSE: Mr. Gilda Carrillo is a 72 y/o male with a past medical history significant for chronic back pain, tobacco use, lipodermatosclerosis/bilat venous stasis edema, chronic back pain/lumbar spondylosis s/p laminectomy L2-4 (1999), DJD/OA bilateral hips mod-severe, bilateral foot pain, psoriasis, type 2 diabetes, hypertension, morbid obesity (BMI 44), presumed SILVIANO (patient declined sleep study), HFpEF, and diagnosed with afib in the setting of sepsis 2/2 cellulitis and COVID (10/2022), afib now persistent, anticoagulated with apixaban s/p unsuccessful DCCV (01/22/23). In review of his chart Gilda is followed closely by CHF clinic and EP. Gilda was admitted to the cardiology service for dofetilide initiation on 07/07/23. [facility] ruled out LA thrombus. EKG on admission showed atrial fibrillation, rate 101 bpm, QT/QTc 356/461ms. labs were notable for serum sodium 137, hypokalemic with a serum potassium of 3.3, mag 2.2, serum creatinine 1.1. Dofetilide was initiated at 500 mcg twice daily; however, after the second dose he developed QT C prolongation. Dofetilide was decreased to 250 mcg BID. He was successfully cardioverted after his fourth dose. He received a single shock at 300 J, and has remained in sinus rhythm. QTc remained stable. Follow-up with EP as outpatient. During his hospitalization, he has also had issues with hypokalemia, and KCL was increased. Follow-up with CHF has been requested. He will also need a sleep study as outpatient, and Gilda is agreeable to this, ordered and PCP to follow-up. OPERATIVE/INVASIVE PROCEDURES: EK07/09/2023 at 2113: Sinus rhythm, first-degree AV block, WENDY 212 MS, QT/QTc 362/445 05/09/2023@1340: Sinus rhythm, first-degree AV block, WENDY 228 MS, QT/QTc 370/434 05/09/2023 at 10 AM: Atrial fibrillation, RVR, ventricular rate 102, QT/QTc 296/385 07/08/23 @ 2056: afib rate 105 bpm, QT/QTc 336/444: hand measured: 360/476 07/08/23 @ 1453: Afib rate 95 bpm, QT/QTc 352/442: hand measured 360/453 07/08/2023 at 928: Atrial fibrillation, ventricular rate 99 bpm, QT/QTc 522/669: Hand measured 400/514 07/07/2023 @0723: Atrial fibrillation, ventricular rate 101, QT/QTc 356/461 07/09/2023: DCCV 07/07/2023: [facility] Interpretation Summary The left ventricular systolic function is normal. The visually estimated ejection fraction is 55-60%. The left ventricular wall thickness appeared normal. Mild to moderate tricuspid regurgitation. Moderate biatrial enlargement. There is severe interatrial septal hypertrophy. A Chiari network is seen in the right atrium. The rhythm is atrial fibrillation. CONSULTS: None EXAM AT THE TIME OF DISCHARGE: Vital signs: T-max 36.8 Blood pressure: 133/70, 124/68, 115/76 SPO2 greater than 92% on room air Exam: General: Older male, sitting up in bed, appears comfortable. HEENT: Neck is supple, JVD difficult to assess due to body habitus Lungs: Nonlabored, posterior breath sounds are clear. Cardiac: RRR, normal S1-S2, no M/R/G Abdomen: Obese, soft, nondistended. Nontender. Active bowel sounds. Extremities: Warm, trace bilateral pretibial dependent edema. Positive bilateral DP pulses. Neuro: Alert, oriented, speech is clear, no focal deficits. Skin: Small right baxter abrasion noted. DISCHARGE INFORMATION: Disposition on discharge, diet, physical activity, and follow-up care orders are included in the discharge orders. MEDICATION CHANGES: See the [facility] Med Instruction/Reconciliation note for a complete medication list. PERTINENT SOCIAL FACTORS: none, family to transport home More than 60 minutes was spent on discharge management services and coordination of care for this . It was a pleasure taking care of Gilda. If questions arise regarding his hospital course, please do not hesitate to contact me. /mateo/ ASHLEY VELARDE APRN NURSE PRACTITIONER Signed: 07/10/2023 10:12 /mateo/ RODOLFO SPARKS MD STAFF MD Cosigned: 07/11/2023 14:28 ASHLEY VELARDE [facility] Jul 10, 2023 10:21 AM EDUCATION DISCHARGE NOTE: LOCAL TITLE: EDUCATION NURSING DISCHARGE INSTRUCTIONS STANDARD TITLE: EDUCATION DISCHARGE NOTE DATE OF NOTE: JUL 10, 2023@10:21 ENTRY DATE: JUL 10, 2023@10:21:40 AUTHOR: BHAVYA WILSON COSIGNER: URGENCY: STATUS: COMPLETED IMPORTANT PHONE NUMBERS: IF YOU HAVE A LIFE THREATENING EMERGENCY CALL 911 If you have questions about anything related to your inpatient care at the [facility] or your future care in the [facility], call the Call Center or After Hour numbers listed below. If you receive care at another [place] facility or with a community provider, you will need to call them for questions about your future care. -Call Center Friday-Friday, 7:30-4:30 at [phone] or Toll Free -After Hours- toll-free -Outpatient Pharmacy - -Verification of Appointments for the following month - *'S CRISIS LINE NUMBER IS (TALK)* Discharge from ICU, Acute Care, Acute Rehab, or CLC C-SSRS Screening [place] Suicide Severity Rating Scale (C-SSRS) screener 1. Over the past month, have you wished you were or wished you could go to sleep and not wake up? No 2. Over the past month, have you had any actual thoughts of killing yourself? No 3. Over the past month, have you been thinking about how you might do this? Response not required due to responses to other questions. 4. Over the past month, have you had these thoughts and had some intention of acting on them? Response not required due to responses to other questions. 5. Over the past month, have you started to work out or worked out the details of how to kill yourself? Response not required due to responses to other questions. 6. If yes, at any time in the past month did you intend to carry out this plan? Response not required due to responses to other questions. 7. In your lifetime, have you ever done anything, started to do anything, or prepared to do anything to end your life (for example, collected pills, obtained a gun, gave away valuables, went to the roof but didn't jump)? No 8. If YES, was this within the past 3 months? Response not required due to responses to other questions. Written education reviewed and given on: Other diagnosis/instructions: cardioversion Patient and/or other caregiver has had an opportunity to participate in the development of the discharge plan. The patient had an opportunity to ask questions. While in the hospital you were treated for: Afib, cardioversion and s/p dofetilide Primary Care Team: Primary Care Team: [facility]* Primary Care Provider: GELACIO MICHEL No Associate Provider Assigned. Attending Physician: RODOLFO SPARKS You are being discharged to: Home Phone number you can be contacted at for the next 2 weeks: [phone] Your diet is low-sodium diet Activity: No restrictions When you go home you will need: Treatments: None Supplies: None Continuing care needs: If you receive care at [place] you will need to call the Primary Care Call Center number at [phone]. If you receive care at another [place] facility or community provider, you will need to call them to arrange your follow up care. Future appointments: 09/17/2023 14:30 [facility] INPATIENT APPOINTMENT A copy of these instructions has been given to: Patient IM - Immunizations ADMINISTERED Immunization Series Date Facility Reaction Info COVID-19 (PFIZER), MRNA, LNP-S, * 2 03/07/2021 [place] <C> COVID-19 (PFIZER), MRNA, LNP-S, * 1 02/13/2021 [place] <C> INFLUENZA VACCINE, QUADRIVALENT,* 06/07/2022 [place] INFLUENZA VACCINE, QUADRIVALENT,* 08/17/2021 [facility] [facility] INFLUENZA, INJECTABLE, QUADRIVAL* 06/20/2021 [place] * INFLUENZA, INJECTABLE, QUADRIVAL* 05/26/2020 [place] * PNEUMOCOCCAL POLYSACCHARIDE PPV23 05/26/2020 [place] * <C> TD(ADULT) UNSPECIFIED FORMULATION Outside [facility]AP [place] ZOSTER RECOMBINANT 2 07/27/2020 [place] * ZOSTER RECOMBINANT 1 05/26/2020 [place] * CONTRAINDICATED No data available REFUSED ======= Immunization Date Facility Info COVID-19 (PFIZER), MRNA, LNP-S, * 11/18/2022 [place] * <I> INFLUENZA, UNSPECIFIED FORMULATI* 07/07/2023 [place]* <I> <C> See the Detailed Immunizations Health Summary Component[DIM] for Comments <I> See the Detailed Immunizations Health Summary Component[DIM] for Additional Information * Value is truncated; see the Detailed Immunizations Health Summary Component[DIM] for complete text Copy of PROVIDERS DISCHARGE ORDERS Discharge Order Discharge Date: Jun@08:00 Discharged to: Home Discharge Type: Hospital Discharge Provider Completing Summary: Ashley Velarde NP Attending Physician: Rodolfo Sparks MD Discharge Diagnosis: s/p Dofetilide and cardioversion Discharge Condition: Good Discharge Instructions: You were hospitalized for starting a medication called dofetilide for atrial fibrillation. You underwent successful cardioversion on 07/09/2023. Please continue taking your apixaban as prescribed and your dofetilide. Follow-up with the EP clinic has been requested, they will call you to schedule. Follow-up with the heart failure clinic has also been requested. Please call your healthcare provider if you develop symptoms of worsening dyspnea, heart palpitations, dizziness or lightheadedness, weight gain/swelling. It was our pleasure taking care of you. Wishing you the best this holiday season. Discharge Order Weight Bearing Restriction: No, Bathing Restriction: No, Activity Restriction: No, Diet: Low-sodium diet NSAID/Aspirin Restriction (MED/Date to Resume): NA Wound Condition: Clean/Dry/Healing Oxygen Needed for Transport? No Special Transportation Needs: None Nursing Order Educate patient on anticoagulation medication prior to Discharge. /mateo/ DANYEL WILSON RN Signed: 07/10/2023 10:56 Desi WILSON [facility] Jul 10, 2023 10:20 AM NURSING DISCHARGE NOTE: LOCAL TITLE: [facility] NURSING DISCHARGE SUMMARY STANDARD TITLE: NURSING DISCHARGE NOTE DATE OF NOTE: JUL 10, 2023@10:20 ENTRY DATE: JUL 10, 2023@10:20:48 AUTHOR: BHAVYA WILSON COSIGNER: URGENCY: STATUS: COMPLETED Nursing Discharge Summary Home Discharge date and time: Jun Accompanied by: Self Ambulatory Transportation: Own car Verify that the Contact Name and Phone Number are correct: GILDA CARRILLO Condition: Alert, Oriented Skin Condition: Intact Incision: No Education/Teach Back Patient and/or Caregiver was given lara information in discharge instruction and able to teach back verbally or by return demonstration. Yes, demonstrated understanding Does patient have vascular access? Yes Peripheral IV Removed Does patient require assistance with outpatient visits due to cognitive limitations, mobility limitations, or has need for nursing assistance throughout the clinic day? Patient DOES NOT have an active RAHAT flag assigned. No /mateo/ DANYEL WILSON RN Signed: 07/10/2023 10:56 Desi WILSON [facility] Jul 10, 2023 08:00 AM NURSING INPATIENT NOTE: LOCAL TITLE: [facility] NURSING PROGRESS NOTE STANDARD TITLE: NURSING INPATIENT NOTE DATE OF NOTE: JUL 10, 2023@08:00 ENTRY DATE: JUL 09, 2023@23:03:08 AUTHOR: JODIE PANIAGUA EXP COSIGNER: URGENCY: STATUS: COMPLETED Nursing Shift Note Nursing care provided from [phone] Highlights from shift: [place] A&Ox4.afebrile, VSS. NSR on tele. Lung sounds exp whz throughout all bases.[place] c/o shortness of breath & back pain, PRN albuterol neb & Tylenol 1000mg administered. QIVI changed during this tour with output 1350cc. 12 lead EKG completed at 2100. Vet has the ability to make needs known appropriately via call light. [place] refused reposition during this shift. Bed in lowest possible position. See ICCA for detailed assessment SKIN REINSPECTION/REASSESSMENT SKIN INSPECTION: Skin Color: Usual for ethnicity Skin Temperature: Warm Skin Moisture: Normal Skin Turgor: Elastic (normal/immediate) INTERVENTIONS: No change in previous interventions as listed below Pressure Ulcer-Education 07/07/2023 Educate Importance Of Changing Position Provide Education On Cause/Prevention Provide Education Regarding Tx Plan Pressure Ulcer-Friction/Shear 07/07/2023 Elevate Head of Bed For Meals Head of Bed Below 30 Degrees When Not Eating Use Bed Trapeze Or Pull Sheet When Head of Bed Elevated Raise Knee Pressure Ulcer-Pressure Reducing 07/07/2023 Elevate Heels Frequent Position Changes Turn And Reposition Q2H Wheelchair Cushion RISK FACTORS THAT INCREASE RISK FOR DEVELOPING PRESSURE INJURIES The patient/resident does not have any additional risk factors. SKIN/WOUND DRESSING: Location(s): L buttuck Perianal area clean and cream applied Skin Interventions performed this shift: Patient kept clean and dry with barrier cream applied as ordered. Head of Bed kept below 30 degrees unless otherwise ordered. /mateo/ JODIE PANIAGUA Registered nurse Signed: 07/10/2023 08:00 JODIE PANIAGUA [facility] Jul 10, 2023 07:15 AM NURSING NOTE: LOCAL TITLE: TELEMETRY AND OXIMETRY CENTRALIZED NOTE STANDARD TITLE: NURSING NOTE DATE OF NOTE: JUL 10, 2023@07:15 ENTRY DATE: JUL 10, 2023@12:02:36 AUTHOR: LUIS CHAO EXP COSIGNER: URGENCY: STATUS: COMPLETED Telemetry (Cardiac) Monitor: Day Shift Telemetry initiation date/time: Jun@13:50. Telemetry indication: Known or Potential for Prolonged QT (i.e., Cardiac History: A Fib,HTN Cardiac rhythm interpretation: Sinus Rhythm w 1st Degree AVB HR:91 MD Int:N/A QRS Int:.093 QT Int:.39 QTc Int:.479 Telemetry leads monitored this shift: II and V lead Alarm parameters verified this shift /es/ LUIS CHAO Career Services Assistant Signed: 07/10/2023 12:04 LUIS CHAO [facility] Jul 09, 2023 11:10 PM NURSING NOTE: LOCAL TITLE: TELEMETRY AND OXIMETRY CENTRALIZED NOTE STANDARD TITLE: NURSING NOTE DATE OF NOTE: JUL 09, 2023@23:10 ENTRY DATE: JUL 10, 2023@03:44:07 AUTHOR: MARY LOZANO EXP COSIGNER: URGENCY: STATUS: COMPLETED Telemetry (Cardiac) Monitor: Fishing Manager Telemetry initiation date/time: Jun@13:50. Telemetry indication: Known/Potential for prolonged QT Cardiac History: HTN, Afib Cardiac rhythm interpretation: Sinus tachycardia HR:112 MD Int:.201 QRS Int:.101 QT Int:.347 QTc Int:.474 Telemetry leads monitored this shift: II and V lead Alarm parameters verified this shift /es/ MARY ALAMO Signed: 07/10/2023 03:47 MARY LOZANO [facility] Jul 09, 2023 03:30 PM NURSING NOTE: LOCAL TITLE: TELEMETRY AND OXIMETRY CENTRALIZED NOTE STANDARD TITLE: NURSING NOTE DATE OF NOTE: JUL 09, 2023@15:30 ENTRY DATE: JUL 09, 2023@17:41:02 AUTHOR: MARY LOZANO EXP COSIGNER: URGENCY: STATUS: COMPLETED Telemetry (Cardiac) Monitor: Evening Shift Telemetry initiation date/time: Jun@13:50. Telemetry indication: Known/Potential for prolonged QT Cardiac History: HTN, Afib Cardiac rhythm interpretation: Sinus rhythm HR:85 MD Int:.223 QRS Int:.106 QT Int:.353 QTc Int:.421 Telemetry leads monitored this shift: II and V lead Alarm parameters verified this shift Additional comments: Patient left floor for ablation at 1256 and returned 1405 with sinus rhythm, Nurse Janell notified. /mateo/ MARY LOZANO [facility] Signed: 07/09/2023 17:43 MARY LOZANO [facility] Jul 09, 2023 02:06 PM ANESTHESIOLOGY OPERATIVE NOTE: LOCAL TITLE: [facility] ANESTHESIA RECORD STANDARD TITLE: ANESTHESIOLOGY OPERATIVE NOTE DATE OF NOTE: JUL 09, 2023@14:06 ENTRY DATE: JUL 09, 2023@14:43:55 AUTHOR: DAWOOD GOMEZ EXP COSIGNER: URGENCY: STATUS: COMPLETED See [facility] for Full Anesthesia Record /mateo/ DAWOOD GOMEZ MD ANESTHESIOLOGIST Signed: 07/09/2023 14:43 DAWOOD GOMEZ [facility] Jul 09, 2023 02:04 PM CARDIOLOGY PROCEDURE NOTE: LOCAL TITLE: CARDIOLOGY CARDIOVERSION PROCEDURE NOTE STANDARD TITLE: CARDIOLOGY PROCEDURE NOTE DATE OF NOTE: JUL 09, 2023@14:04 ENTRY DATE: JUL 09, 2023@14:04:20 AUTHOR: ASHLEY VELARDE EXP COSIGNER: COY SALAZAR URGENCY: STATUS: COMPLETED EKG - Pre procedure: afib A time out was done to verify correct patient and procedure. Using full name, date of and social security number identified the patient. The cardioversion procedure was discussed with patient and verified to be correct. The patient was provided with appropriate education and acknowledged understanding. Procedure: Patient was brought to the [facility] room and placed on cardiac, blood pressure and oxygen monitors. The Bi-Phasic defibrillator was used with the multi-function electrodes in the anterior/posterior position. Following sedation per anesthesia, patient received 1 synchronized shock @ 300 joules. Pt. successfully converted to normal sinus rhythm. Vital signs stable throughout please refer to anesthesia flow sheet for details. EKG - Post Procedure: NSR Patient tolerated procedure well, no complications. - Normal neuro exam post-procedure. Patient was transported to dairy laboratory technician holding room for further recovery. Assessment/Plan: - Successful cardioversion. - Patient will return to 3K -Continue Dofetilide at 250 mcg BID -Dc home tomorrow -follow-up with EP as outpt. /mateo/ ASHLEY VELARDE APRN NURSE PRACTITIONER Signed: 07/09/2023 14:05 /mateo/ COY SALAZAR MD STAFF LIEUTENANT FIRE FIGHTER Cosigned: 07/09/2023 18:15 ASHLEY VELARDE [facility] Jul 09, 2023 01:32 PM CONSENT: LOCAL TITLE: CONSENT CLINICAL IMED STANDARD TITLE: CONSENT DATE OF NOTE: JUL 09, 2023@13:32:08 ENTRY DATE: JUL 09, 2023@13:32:12 AUTHOR: LETTY CASTAÑEDA COSIGNER: URGENCY: STATUS: COMPLETED [facility] Imaging - Scanned Document Signature Informed Consent for Heart - Cardioversion (Cardioversion) 1. Anatomical Location: anterior and posterior pacer pads 2. Informed consent was obtained at 1:30 PM on 07/09/23. The full consent document can be accessed through [facility]. 3. Patient name: GILDA CARRILLO 4. The patient HAS decision-making capacity. 5. Surrogate (if applicable): 6. Reason for the treatment (diagnosis, condition, or indication): Atrial fibrillation (AF). AF is a rapid heartbeat in the upper chambers of the heart. 7. Treatment/procedure: In this procedure, medicine or an electrical shock is given. This helps restore the heart to a normal rhythm. Medications are given through a vein. An electrical shock is administered after you are sedated. Your heart is monitored during the procedure. 8. Anesthesia will be administered. A member of the anesthesia care team will visit you before your treatment to discuss the type(s) of anesthesia you may need and to give you more information about anesthesia. It may become necessary to alter your anesthesia care plan after this discussion. Devices may be applied to your body and placed in your veins and arteries to monitor you during your anesthesia. All forms of anesthesia involve some risk. Minor (not life-threatening) risks include: nausea, vomiting, and pain where an injection is given. Although rare, severe complications include: injury to blood vessels, drug reactions, bleeding, blood clots, loss of sensation or limb function, infection, paralysis, stroke, brain damage, heart attack, and . Here is a basic description of the major types of anesthesia including their risks in addition to those described above: General anesthesia involves drugs that are injected into the bloodstream or breathed into the lungs. A tube or other device may be inserted into your airway to help you breathe. The expected benefit is that you will be totally unconscious and you will not feel pain during the procedure. Additional risks include: injury to the teeth, throat, eyes, or lung. In less than one case in a thousand, patients may be aware of activities during their surgery. Spinal or epidural analgesia/anesthesia involves a drug being injected through a needle or catheter placed into the spinal canal. The expected benefit is a temporary decreased feeling in the area of surgical incision, allowing surgery to proceed without pain. Additional risks include: headache, backache, convulsions, persistent weakness and or numbness, abnormal heart rhythms, and incomplete pain relief during the operation that may require general anesthesia. Major/minor nerve block involves a drug being injected near nerves providing loss or reduction of sensation and movement to the area. The expected benefit is a temporary loss of feeling and/or movement of a specific limb or area of your body. Additional risks include: convulsions, persistent weakness and or numbness, and incomplete pain relief during the operation that may require general anesthesia. Monitored anesthesia care involves monitoring of the heart and lungs to make sure that they are functioning adequately during your procedure. A local anesthetic will be injected to prevent pain, and the anesthesia care provider may use drugs to help you relax, and lessen any pain. You may remain conscious throughout your procedure, or you may be given medications that will make you unconscious. The expected benefit is that you will be comfortable during your operation with a minimum amount of anesthesia. This may result in a shorter stay in the hospital. Additional risks include: incomplete pain relief during the operation that may require additional anesthesia. Convulsions from the injected drug are a rare but serious complication. 9. Consent to Blood Products (if applicable): It is not expected that blood products will be used in this treatment/procedure. 10. Practitioner obtaining consent: Ashley Velarde 11. Supervising practitioner: 12. Practitioner(s) performing or supervising treatment/procedure (if not listed above): 13. Witness Name(s): 14. Comments: SCANNED DOCUMENT SIGNATURE NOT REQUIRED Electronically Filed: 07/09/2023 by: LETTY LUX [facility] Jul 09, 2023 12:20 PM NURSING NOTE: LOCAL TITLE: TELEMETRY AND OXIMETRY CENTRALIZED NOTE STANDARD TITLE: NURSING NOTE DATE OF NOTE: JUL 09, 2023@12:20 ENTRY DATE: JUL 09, 2023@13:37:45 AUTHOR: LUIS CHAO COSIGNER: URGENCY: STATUS: COMPLETED Telemetry (Cardiac) Monitor: Day Shift Telemetry initiation date/time: Jun@13:50. Telemetry indication: Known or Potential for Prolonged QT (i.e., Cardiac History: A Fib,HTN Cardiac rhythm interpretation: A Fib HR:63-117 MD Int:N/A QRS Int:.088 QT Int:.327 QTc Int: n/a Telemetry leads monitored this shift: II and V lead Alarm parameters verified this shift // LUIS CHAO Career Services Assistant Signed: 07/09/2023 13:38 LUIS CHAO [facility] Jul 09, 2023 11:32 AM NURSING INPATIENT NOTE: LOCAL TITLE: [facility] NURSING PROGRESS NOTE STANDARD TITLE: NURSING INPATIENT NOTE DATE OF NOTE: JUL 09, 2023@11:32 ENTRY DATE: JUL 09, 2023@11:32:41 AUTHOR: JANELL CHINCHILLA COSIGNER: URGENCY: STATUS: COMPLETED Nursing Shift Note Nursing care provided from [phone] Highlights from shift: Vet has been cooperative and compliant with all cares during this tour.A&Ox4. Cardiac Rhythm:NSR. VSS. Lung sounds exp whz throughout all bases.Vetdid express some shortness of breath, internal communications writer administered PRN albuterolneb.QIVI applied. Vet adheres to fluid restriction. 12 lead EKG conducted. Vet tolerated cardioversion today.Vet has the ability to make needs known appropriately via call light. Bed inlowest possible position See ICCA for detailed assessment, Education provided on medication/cares this shift as needed INITIAL SKIN INSPECTION/ASSESSMENT SKIN INSPECTION: Skin Color: Usual for ethnicity Skin Temperature: Warm Skin Moisture: Normal Skin Turgor: Elastic (normal/immediate) Casper Skin Assessment: The patient's Casper Scale Score is 17. The patient is at mild risk for development of pressure ulcer/injury. Sensory perception -- ability to respond meaningfully to pressure-related discomfort Slightly limited. Moisture -- degree to which skin is exposed to moisture Rarely moist. Activity -- ability to change and control body position Walks occasionally. Mobility -- ability to change and control body position Very limited. Nutrition -- usual food intake patterns Adequate. Friction and shear Potential problem. INTERVENTIONS: No change in previous interventions as listed below Pressure Ulcer-Education 07/07/2023 Educate Importance Of Changing Position Provide Education On Cause/Prevention Provide Education Regarding Tx Plan Pressure Ulcer-Friction/Shear 07/07/2023 Elevate Head of Bed For Meals Head of Bed Below 30 Degrees When Not Eating Use Bed Trapeze Or Pull Sheet When Head of Bed Elevated Raise Knee Pressure Ulcer-Pressure Reducing 07/07/2023 Elevate Heels Frequent Position Changes Turn And Reposition Q2H Wheelchair Cushion Localized abnormality: Tear: Location(s): L BUTTOCK Skin Interventions performed this shift: Patient kept clean and dry with barrier cream applied as ordered. /mateo/ JANELL CHINCHILLA REGISTERED NURSE Signed: 07/09/2023 20:00 JANELL CHINCHILLA [facility] Jul 09, 2023 07:18 AM NURSING INPATIENT NOTE: LOCAL TITLE: [facility] NURSING PROGRESS NOTE STANDARD TITLE: NURSING INPATIENT NOTE DATE OF NOTE: JUL 09, 2023@07:18 ENTRY DATE: JUL 09, 2023@07:18:55 AUTHOR: ARSLAN CUMMINGS EXP COSIGNER: URGENCY: STATUS: COMPLETED Nursing Shift Note Nursing care provided from [phone] Highlights from shift: Patient is alert and oriented x4 and able to make his needs known. Patient c/o mild left flank pain and was treated with PRN Tylenol. VSS and afebrile. A fib w/RVR occasionally. Denies SOB, palpitations, N/V and dizziness. Patient on room air and O2 sats WNL. Dofetilide dose given at 0713 this morning. No acute events overnight. See ICCA for detailed assessment, Education provided on medication/cares this shift as needed SKIN REINSPECTION/REASSESSMENT SKIN INSPECTION: Skin Color: Usual for ethnicity Skin Temperature: Warm Skin Moisture: Normal, Dry Skin Turgor: Elastic (normal/immediate) Casper Skin Assessment: The patient's Casper Scale Score is 18. The patient is at mild risk for development of pressure ulcer/injury. Sensory perception -- ability to respond meaningfully to pressure-related discomfort Slightly limited. Moisture -- degree to which skin is exposed to moisture Occasionally moist. Activity -- ability to change and control body position Walks occasionally. Mobility -- ability to change and control body position Slightly limited. Nutrition -- usual food intake patterns Adequate. Friction and shear No apparent problem. INTERVENTIONS: No change in previous interventions as listed below Pressure Ulcer-Education 07/07/2023 Educate Importance Of Changing Position Provide Education On Cause/Prevention Provide Education Regarding Tx Plan Pressure Ulcer-Friction/Shear 07/07/2023 Elevate Head of Bed For Meals Head of Bed Below 30 Degrees When Not Eating Use Bed Trapeze Or Pull Sheet When Head of Bed Elevated Raise Knee Pressure Ulcer-Pressure Reducing 07/07/2023 Elevate Heels Frequent Position Changes Turn And Reposition Q2H Wheelchair Cushion RISK FACTORS THAT INCREASE RISK FOR DEVELOPING PRESSURE INJURIES The patient/resident does not have any additional risk factors. Localized abnormality: Bruising: Location(s): buttocks Skin Interventions performed this shift: Patient kept clean and dry with barrier cream applied as ordered. Device(s) removed and skin underneath was inspected. Head of Bed kept below 30 degrees unless otherwise ordered. /mateo/ ARSLAN CUMMINGS, RN,BSN REGISTERED NURSE Signed: 07/09/2023 07:25 ARSLAN CUMMINGS [facility] Jul 09, 2023 12:01 AM NURSING NOTE: LOCAL TITLE: TELEMETRY AND OXIMETRY CENTRALIZED NOTE STANDARD TITLE: NURSING NOTE DATE OF NOTE: JUL 09, 2023@00:01 ENTRY DATE: JUL 09, 2023@02:49:22 AUTHOR: COLE LOREDO EXP COSIGNER: URGENCY: STATUS: COMPLETED Telemetry (Cardiac) Monitor: Fishing Manager Telemetry initiation date/time: Jun@13:52. Telemetry indication: Known or Potential for Prolonged QT Cardiac History: HTN Cardiac rhythm interpretation: Afib w/rvr HR:117 MD Int:N/A QRS Int:.09 QT Int:.34 QTc Int:.47 Telemetry leads monitored this shift: II and V lead Alarm parameters verified this shift /nacho LOREDO EMPLOYEE COMMUNICATIONS COORDINATOR Signed: 07/09/2023 02:49 COLE LOREDO [facility] Jul 08, 2023 06:16 PM NURSING INPATIENT NOTE: LOCAL TITLE: [facility] NURSING PROGRESS NOTE STANDARD TITLE: NURSING INPATIENT NOTE DATE OF NOTE: JUL 08, 2023@18:16 ENTRY DATE: JUL 08, 2023@18:17:01 AUTHOR: BRI HO EXP COSIGNER: URGENCY: STATUS: COMPLETED Nursing Shift Note Nursing care provided from [phone] Highlights from shift: Pt A&O x 4, an assist of 1 with a rollator, and able to make needs known. Pt has been afebrile and vitally stable. Pt a-fib on telemetry, with a HR in the 90s-100s. Pt denies pain, chest pain, nausea. Pt lung sounds have expiratory wheezes throughout. Pt getting PRN duo nebs. Pt condom cath in place with good output noted. Pt getting scheduled dofetilide with EKGs, per orders. MD notified of EKG. Mallory cares were performed and barrier cream was applied to pt's sacrum and coccyx. No acute events. See ICCA for detailed assessment, Education provided on medication/cares this shift as needed SKIN REINSPECTION/REASSESSMENT SKIN INSPECTION: Skin Color: Pale Skin Temperature: Warm Skin Moisture: Normal Skin Turgor: Elastic (normal/immediate) Casper Skin Assessment: The patient's Casper Scale Score is 18. The patient is at mild risk for development of pressure ulcer/injury. Sensory perception -- ability to respond meaningfully to pressure-related discomfort Slightly limited. Moisture -- degree to which skin is exposed to moisture Rarely moist. Activity -- ability to change and control body position Walks occasionally. Mobility -- ability to change and control body position Slightly limited. Nutrition -- usual food intake patterns Adequate. Friction and shear Potential problem. INTERVENTIONS: No change in previous interventions as listed below Pressure Ulcer-Education 07/07/2023 Educate Importance Of Changing Position Provide Education On Cause/Prevention Provide Education Regarding Tx Plan Pressure Ulcer-Friction/Shear 07/07/2023 Elevate Head of Bed For Meals Head of Bed Below 30 Degrees When Not Eating Use Bed Trapeze Or Pull Sheet When Head of Bed Elevated Raise Knee Pressure Ulcer-Pressure Reducing 07/07/2023 Elevate Heels Frequent Position Changes Turn And Reposition Q2H Wheelchair Cushion RISK FACTORS THAT INCREASE RISK FOR DEVELOPING PRESSURE INJURIES: The patient/resident has the following: Known vascular surgery or vascular disease Wound - other than pressure ulcer/injury (includes open surgical wounds/incisions): Location: left buttock No Edema Wound drainage none. Skin Interventions performed this shift: Device(s) removed and skin underneath was inspected. Head of Bed kept below 30 degrees unless otherwise ordered. /mateo/ BRI HO RN Signed: 07/08/2023 22:36 BRI HO [facility] Jul 08, 2023 05:45 PM REPORT OF CONTACT: LOCAL TITLE: APPOINTMENT SCHEDULING NOTE STANDARD TITLE: REPORT OF CONTACT DATE OF NOTE: JUL 08, 2023@17:45 ENTRY DATE: JUL 08, 2023@17:46:02 AUTHOR: SEBASTIAN TEJEDA EXP COSIGNER: URGENCY: STATUS: COMPLETED Attempted to schedule Return to clinic (RTC) Contact attempt made to 1st attempt Telephone 2nd attempt Letter - Sent letter by regular [place] mail to address on file: GILDA CARRILLO [address] [place] [id number] Disposition order request after Jul Left message on voice mail to call back to this number [phone] If calls back, schedule appt for: Return to [facility] on or around ( May 30, 2023 ) for a total of 1 appointment(s) f/u palmoplantar psoriasis /mateo/ SEBASTIAN TEJEDA LPN LICENSED PRACTICAL NURSE Signed: 07/08/2023 17:49 SEBASTIAN TEJEDA [facility] Jul 08, 2023 03:25 PM NURSING NOTE: LOCAL TITLE: TELEMETRY AND OXIMETRY CENTRALIZED NOTE STANDARD TITLE: NURSING NOTE DATE OF NOTE: JUL 08, 2023@15:25 ENTRY DATE: JUL 08, 2023@18:09:16 AUTHOR: LUIS CHAO EXP COSIGNER: URGENCY: STATUS: COMPLETED Telemetry (Cardiac) Monitor: Evening Shift Telemetry initiation date/time: Jun@13:50. Telemetry indication: Known or Potential for Prolonged QT (i.e., Cardiac History: A Fib,HTN Cardiac rhythm interpretation: A Fib HR:91-121 MD Int:N/A QRS Int:.088 QT Int:.346 QTc Int:n/a Telemetry leads monitored this shift: II and V lead Alarm parameters verified this shift /mateo/ LUIS CHAO Career Services Assistant Signed: 07/08/2023 18:10 LUIS CHAO [facility] Jul 08, 2023 11:33 AM NURSING INPATIENT NOTE: LOCAL TITLE: [facility] NURSING PROGRESS NOTE STANDARD TITLE: NURSING INPATIENT NOTE DATE OF NOTE: JUL 08, 2023@11:33 ENTRY DATE: JUL 08, 2023@11:33:43 AUTHOR: JANELL CHINCHILLA EXP COSIGNER: URGENCY: STATUS: COMPLETED Nursing Shift Note Nursing care provided from [phone] Highlights from shift: Vet has been cooperative and compliant with all cares during this tour. A&Ox4. Cardiac Rhythm:Afib. VSS. Lung sounds exp whz throughout all bases. Vet did express some shortness of breath, internal communications writer administered PRN albuterol neb. Condom cath applied. Vet adheres to fluid restriction. 12 lead EKG conducted. Vet has the ability to make needs known appropriately via call light. Bed in lowest possible position See ICCA for detailed assessment, Education provided on medication/cares this shift as needed INITIAL SKIN INSPECTION/ASSESSMENT SKIN INSPECTION: Skin Color: Usual for ethnicity Skin Temperature: Warm Skin Moisture: Normal Skin Turgor: Elastic (normal/immediate) INTERVENTIONS: No change in previous interventions as listed below Pressure Ulcer-Education 07/07/2023 Educate Importance Of Changing Position Provide Education On Cause/Prevention Provide Education Regarding Tx Plan Pressure Ulcer-Friction/Shear 07/07/2023 Elevate Head of Bed For Meals Head of Bed Below 30 Degrees When Not Eating Use Bed Trapeze Or Pull Sheet When Head of Bed Elevated Raise Knee Pressure Ulcer-Pressure Reducing 07/07/2023 Elevate Heels Frequent Position Changes Turn And Reposition Q2H Wheelchair Cushion Localized abnormality: Tear: Location(s): pressure ulcer buttocks Skin Interventions performed this shift: Patient turned [id number] or as appropriate while in bed. /mateo/ JANELL CHINCHILLA REGISTERED NURSE Signed: 07/08/2023 15:40 JANELL CHINCHILLA [facility] Jul 08, 2023 10:47 AM NUTRITION CONSULT: LOCAL TITLE: NUTRITION CONSULT STANDARD TITLE: NUTRITION CONSULT DATE OF NOTE: JUL 08, 2023@10:47 ENTRY DATE: JUL 08, 2023@10:47:45 AUTHOR: CLARK DOOLEY EXP COSIGNER: URGENCY: STATUS: COMPLETED NUTRITION INITIAL ASSESSMENT Time of visit: 10:00-10:20 am Reason for consult/assessment: Casper Score <19 AND Casper Nutrition score of 1 or 2. Current pressure ulcer or non-healing wound Diagnosis: AFIB DOFETILIDE LOADING Pertinent past medical history: HTN, tachycardia, T2DM, edema, COPD, persistent a fib, diastolic disinfection Height: 76 in [193.0 cm] (07/02/2023 13:54) Weight: 364 lb [165.11 kg] (07/07/2023 08:02) BMI: 44.4 [place] body weight: 202 lbs Recent weight changes: 61 lbs (14%) weight loss in 1 year, 39 lbs (10%) weight loss in 6 months, both clinically significant, desirable, intentional Diet Order: IGNACIO Intake: not well at breakfast, pt states he received dry cereal w/out milk (pt on 2GNA, CHO, 2L Fluid restriction this morning) Diet history: states he is currently in the [facility] program and is working on a very low carbohydrate diet, note per more recent nutrition note, RD wanting to focus on normal carbohydrate intake with 3-4 CHO choices. Pt does not give dietary recall, comments he eats normal food, like a normal person. States he eats 2 meals per day, likes eggs and soup. Drinks water, coffee, and vodka + diet olivia saúl at home (1x/day). Food preferences obtained Cultural/mormonism food preferences: None Food Allergies: None Feeding assistance: denies Food Insecurity: denies Digestive issues Constipation: ongoing since start of Ozempic, LBM 07/07, went from 1 bowel movement per day to 1 every 3 days, denies concern Labs reviewed Pertinent Medications: apixaban, empagliflozin, ferumoxide, gabapentin, losartan, potassium chloride, spironolactone, trazodone Malnutrition Assessment (per AND/ASPEN Consensus Statement, 2012): Dietitian does not suspect malnutrition at this time, therefore, physical assessment not conducted Skin Condition wound on L buttock per nursing not 07/08/2023, WOC consulted Casper Score 17, Nutrition subscore 3 Estimated Nutrient Needs based on adjusted body weight of 110 kg 8446-8541 calories/day 20-25 kcal/kg 110-132 grams protein/day 1-1.2 g/kg *wound 2000 ml fluids/day per provider recs PRIMARY Nutritional Diagnosis: Inadequate oral intake (protein) r/t increased nutrient needs (protein) AEB chronic nonhealing wounds, lack of prior education on role of protein and wounds. SECONDARY diagnosis: Food and nutrition related knowledge deficit r/t belief finding that hinders food and nutrition behavior change AEB pt subjective statements supporting low carbohydrate diet recommendations against RD recs, BMI 44, and seeking nutrition education. Nutrition Recommendations/Interventions: Provide diet as ordered: IGNACIO - will add HP gelatein 1x/day for additional protein source Will update food preferences. Encourage and monitor oral intake, weight, and labs. Nutrition education/counseling: Educated pt on how protein impacts wound/skin healing, discussed protein containing foods and supplements. Encouraged pt to trial HP gelatein for taste tolerance, if pt does not like taste, can trial liquacel. Reviewed the importance of normal carbohydrate intake for successful weight loss and DM management. Dietitian to follow up in 10-14 days if still an inpatient. Monitoring and Evaluation: 1. Wounds to show healing 2. Pt to identify importance of normal carbohydrate intake Patient Education of Treatment Plan: Patient indicates readiness to learn, verbalizes understanding, agreement and satisfaction with the treatment plan. Denies further questions. /mateo/ Contreras MCKEON R.D. CLINICAL DIETITIAN Signed: 07/08/2023 11:13 CLARK DOOLEY [facility] Jul 08, 2023 09:57 AM WOUND CARE CONSULT: LOCAL TITLE: WOC NURSE CONSULT STANDARD TITLE: WOUND CARE CONSULT DATE OF NOTE: JUL 08, 2023@09:57 ENTRY DATE: JUL 08, 2023@09:57:09 AUTHOR: ZULEMA PIKE EXP COSIGNER: URGENCY: STATUS: COMPLETED WOC NURSE CONSULT Has ADDENDA WOUND OSTOMY CONTINENCE (WOC) NURSING ASSESSMENT: REASON FOR CONSULT: has WOCN that does dressing changes MWF to chronic wounds. Please see and treat while inpatient. Thanks. Will be here through 07/10 ADMISSION DATE: 07/07/23, per cardiology admission note Gilda is admitted to the cardiology service for dofetilide initiation. ORION today ruled out LA thrombus. EKG this morning shows atrial fibrillation, rate 101 bpm, QT/QTc 356/461ms. labs are notable for serum sodium 137, hypokalemic with a serum potassium of 3.3, mag 2.2, serum creatinine 1.1. Plan is to start dofetilide today. Subjectively, Gilda has no complaints, and denies heart failure symptoms. PROBLEM LIST: Active problems - Computerized Problem List is the source for the followin. Hypertension (SNOMED CT 12079562) 2. Tachycardia - EKG 04/24/[address] or T wave changes 3. Chronic back pain (SNOMED CT 547207298) - s/p laminectomy L2-4 '00 - disability parking permit application completed 03/10/18 with exp date 03/2023 4. Other and unspecified alcohol dependence, unspecified drinking behavior 5. Tobacco use (SNOMED CT 768216535) - quit >25yr use 6. SCREEN - c scope - AAA due 65-75 - DEXA due >70 7. 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 SURGERY Hx - laminectomy L2-4 '00 - tonsilectomy - adenoidectomy - R tympanoplasty 78 9. LUNG LESION - incidental on c-xray 04/21/12 ER @[facility] - CT chest 05/01/12 @[facility] - CT chest 05/25/12 @[facility] lung nodules, new effusion, rib frx - [...] 12. Solitary nodule of lung (SNOMED CT 163766621) 13. Chronic obstructive lung disease - PFT done 08/28/15 @[facility] 14. Degenerative joint disease - CT 06/08/2016; bilateral hips mod/severe 15. Benign localized hyperplasia of prostate 16. Arthritis of right hip 17. Lumbar spondylosis 18. Bilateral foot pain 19. Psoriasis 20. Venous stasis edema of bilateral lower limbs 21. Lipodermatosclerosis 22. Diabetes Mellitus Type 2 (SCT 69035579) 23. Diastolic dysfunction 24. Paroxysmal atrial fibrillation 25. Long-term current use of anticoagulant 26. Persistent atrial fibrillation WOUND HISTORY: known to [facility] team for wounds to BLE and buttocks. VERBAL CONSENT OBTAINED FOR PHOTOS, PLEASE SEE [facility] FOR PHOTOS ASSESSMENT: lying in bed, A&O x4, pleasant and cooperative with assessment. Reports he is liking the Roho cushion very much. He does not like the shoes he was fitted for. FULL SKIN INSPECTION ASSESSMENT - skin intact to satinder. feet, heels, and lower extremities. small areas of built- up callus present to the R heel, gently exfoliated with warm water and gauze. discussed plan of care with , recommending aquaphor only to satinder. feet, heels, and lower legs. [place] wound prefer to continue with the aquaphor and the urea cream as he has psoriasis and the plaques keep returning. He reports the urea cream has been the most effective treatment overall. Ok to continue with treatment plan per home routine. cleansed feet and legs and applied Remedy barrier cream, reapplied socks, no heel mepilex at this time - skin to groin intact, condom catheter in place, slightly rolled, preferred to leave in place rather than replace, education provided for pressure injury risk. skin intact to pannus, tele lead wires tightly pulled across pannus, rearranged wires. 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 will reassess area with a 72 hour follow up - Intergluteal cleft with intertrigo present, moist linear opening along the crease, moderate amount of sanguineous drainage present with cleaning. reports this is normal as he is on blood thinners. large moisture ridge along the buttocks, L>R, saw-toothed bulbous projections along the edge of each buttock, scattered moist open areas d/t MASD present within ridge. Cleansed skin thoroughly with bath wipes and applied liberal amount of Remedy Barrier paste. Will order Triad paste over open areas, once healed, will need on-going moisture protection with barrier creams. no sacral mepilex recommended at this time d/t increased moisture to the area, do not want to trap moisture into the gluteal cleft - skin intact to bilateral upper extremities and chest LOWER EXTREMITY ASSESSMENT: EDEMA: non-pitting PULSES: did not assess SKIN TEXTURE/STAINING: erythema present from feet through gaiter region, chronic skin changes d/t edema COMPRESSION: none in place, wears sensisocks at home ISSUED: Sensisocks XL issued February 2023 FOOT ASSESSMENT: WOUNDS: none DEFORMITIES: none SENSATION: present OFFLOADING: none in place, recommending use of heel facility manager histology SHOES: unable to assess DIABETIC: yes 10/28/2022 HEMOGLOBIN A1C 6.0 % 4.0 - 6.0 LABS: ALBUMIN 3.6 (07/08/23) WBC 9.78 (07/07/23) C-REACTIVE PROTEIN 24.45 H (11/05/22) IMAGING: Segmentals/ABIs from February 2020 1. Right lower extremity: FREDY: 1.11 TBI: 0.59 PVRs: Normal 2. Left lower extremity: FREDY: 1.13 TBI: 0.70 PVRs: Normal PRESSURE INJURY RISK ASSESSMENT: Score 15-18 Mild Risk NUTRITION: ALBUMIN 3.6 (07/08/23) BOWEL/BLADDER STATUS: continent DEVICES: IV, telemetry MATTRESS/BED: bariatric mattress ordered for SITTING SURFACES: Recommend a Curve Cushion when out of bed WOUND TREATMENT/INTERVENTIONS/PLAN OF CARE: ACTIVITY ORDERS/RECOMMENDATIONS: no restrictions related to wound care at this time PRESSURE INJURY PREVENTION: ordered 1) Daily skin inspection 2) Repositioning in Bed Q2 Hours a) As appropriate to prevent pressure to bony prominences. 3) Elevate heels off a) Using pillows or boots 4) Head of Bed<30 degrees (EXCEPT VAD protector or tube feeds) 5) Sitting Precautions a) Encourage pressure relief to bony prominences and use of cushions as appropriate. b)Curve Cushion for WC 6) Mobility a) Encourage safe ambulation with appropriate assistive devices 7) Moisture management a) Keep skin clean and dry using skin barrier for protection and ultrasorb chux for absorption. Use containment devices as needed. 8) Device safety: (oxygen tubing, other respiratory devices, c-collars, TLSO braces, splints, JENSEN wraps, etc. a) Inspect skin under ALL devices every shift 9) Patient education a) Provide patient/family education related to pressure ulcer prevention. COCCYX/SACRUM/BUTTOCKS PREVENTION ORDERS: - Position change q2h hours - CURVE CUSHION for chair when OOB, limit chair sitting to 2 hours - Mallory-cares: BID and PRN - CRITIC AID to buttocks if incontinent of stool - Z-GUARD for liquid stool. - Avoid briefs in bed, trial alt methods to contain urine or stool (condom Cath, penis pouch, Qivi system, scheduled toileting) SACRUM/BUTTOCKS WOUND: BID and PRN - Cleanse skin to buttocks, groin, and sacrogluteal cleft with bath wipes - Apply Triad paste to moisture ridge along buttocks and to sacrogluteal cleft over all open areas - Do not apply a sacral mepilex dressing, ok to leave EMTS HEEL PROTECTION: - Float heels with a HEEL SIXTH GRADE TEACHER while in bed BILATERAL HEEL CARES: QDAY and PRN - Cleanse feet with bath wipes or wash cloths with warm water gently exfoliating any plaques or callus build up from heels - Apply thin layer of urea cream - Apply thin layer of aquaphor - Apply socks - Elevate heels using a heel facility manager histology GOALS: - maintain skin integrity - manage moisture NEXT STEPS: - continue with diligent offloading of bony prominences EDUCATION: - Pressure Injury Relief - Skin care, hygiene, and use of barrier products DISCHARGE PLANNING HOMECARE AGENCY: [employer] [facility]ly [facility]-[address] [address] [place] AUTH: [id number] VALID: 2023-06-09 thru 2023-12-06 SUPPLIES: - will order blue chux pads for home use per request - urea cream available in outpatient supply with refills available, reports he has aquaphor at home FOLLOW UP: [facility] will continue to follow /nacho PIKE RN, BSN, CWOCN Signed: 07/08/2023 11:07 07/10/2023 ADDENDUM STATUS: COMPLETED 48 hour follow up completed for the R flank as is d/c today. 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 No concerns, skin intact. Did notice a macular/papular red rash to the R side of the pannus while was turning, requested for bedside RN to notify provider for request for antifungal cream. expressed concern for the posterior R calf, skin is intact, no concerns. WOC will sign off at this time, please reconsult with any further concerns. /mateo/ ZULEMA PIKE RN, BSN, CWOCN Signed: 07/10/2023 09:34 12/11/2023 ADDENDUM STATUS: COMPLETED RTC order for follow up on LE wound, please contact to scheduled. /mateo/ Lety Moscoso RN-BC, BSN, CWOCN Wound and Ostomy Care Nurse Signed: 12/11/2023 06:04 Receipt Acknowledged By: * AWAITING SIGNATURE * LUH HDEZ KATHERINE E [facility] Jul 08, 2023 07:20 AM NURSING NOTE: LOCAL TITLE: TELEMETRY AND OXIMETRY CENTRALIZED NOTE STANDARD TITLE: NURSING NOTE DATE OF NOTE: JUL 08, 2023@07:20 ENTRY DATE: JUL 08, 2023@11:13:24 AUTHOR: LUIS CHAO EXP COSIGNER: URGENCY: STATUS: COMPLETED Telemetry (Cardiac) Monitor: Day Shift Telemetry initiation date/time: Jun@13:50. Telemetry indication: Known or Potential for Prolonged QT (i.e., Cardiac History: A Fib,HTN Cardiac rhythm interpretation: A Fib RVR HR:78-129 MD Int:N/A QRS Int:.093 QT Int:.385 QTc Int:.528 Telemetry leads monitored this shift: II and V lead Alarm parameters verified this shift /mateo/ LUIS CHAO Career Services Assistant Signed: 07/08/2023 11:15 LUIS CHAO [facility] Jul 08, 2023 02:36 AM NURSING INPATIENT NOTE: LOCAL TITLE: BELLO NURSING PROGRESS NOTE STANDARD TITLE: NURSING INPATIENT NOTE DATE OF NOTE: JUL 08, 2023@02:36 ENTRY DATE: JUL 08, 2023@02:36:39 AUTHOR: LEXIE ROSALES EXP COSIGNER: URGENCY: STATUS: COMPLETED Nursing Shift Note Nursing care provided from [id number] Highlights from shift: A&O x4, consistent carbs 2g sodium and 2L fluid restriction diet. Telemetry - A-fib. Room air (Sats 93-96%). R. forearm PIV flushed and patent. Pt. reported R. hip pain (not new to pt.); PRN Tylenol administered with effectiveness. L. buttock wound closed per mepilex; dressing CDI. BLE edema and redness noted; BLE heel mepilex in place. Expiratory wheezing and SOB noted; PRN nebulizer administered x1 with effectiveness. Pt. voided 2400ml of clear yellow urine. PO fluid intake 600ml this shift; fluid restriction education provided. Pt. denied N/V, dizziness. Scheduled dofetilide oral tab administered at 0630. See ICCA for detailed assessment SKIN REINSPECTION/REASSESSMENT SKIN INSPECTION: Skin Color: Usual for ethnicity Skin Temperature: Warm Skin Moisture: Normal Skin Turgor: Elastic (normal/immediate) Casper Skin Assessment: The patient's Casper Scale Score is 17. The patient is at mild risk for development of pressure ulcer/injury. Sensory perception -- ability to respond meaningfully to pressure-related discomfort Slightly limited. Moisture -- degree to which skin is exposed to moisture Rarely moist. Activity -- ability to change and control body position Walks occasionally. Mobility -- ability to change and control body position Slightly limited. Nutrition -- usual food intake patterns Adequate. Friction and shear Problem. INTERVENTIONS: No change in previous interventions as listed below Pressure Ulcer-Education 07/07/2023 Educate Importance Of Changing Position Provide Education On Cause/Prevention Provide Education Regarding Tx Plan Pressure Ulcer-Friction/Shear 07/07/2023 Elevate Head of Bed For Meals Head of Bed Below 30 Degrees When Not Eating Use Bed Trapeze Or Pull Sheet When Head of Bed Elevated Raise Knee Pressure Ulcer-Pressure Reducing 07/07/2023 Elevate Heels Frequent Position Changes Turn And Reposition Q2H Wheelchair Cushion RISK FACTORS THAT INCREASE RISK FOR DEVELOPING PRESSURE INJURIES: The patient/resident has the following: History of previous or current pressure ulcer/injury SKIN/WOUND DRESSING: Location(s): L. buttock Clean Dry Intact Skin Interventions performed this shift: Patient turned [id number] or as appropriate while in bed. Patient's heels elevated with pressure relief boots or pillows under calves. Patient kept clean and dry with barrier cream applied as ordered. /mateo/ LEXIE ROSALES RN Signed: 07/08/2023 07:13 LEXIE ROSALES [facility] Jul 08, 2023 12:01 AM NURSING NOTE: LOCAL TITLE: TELEMETRY AND OXIMETRY CENTRALIZED NOTE STANDARD TITLE: NURSING NOTE DATE OF NOTE: JUL 08, 2023@00:01 ENTRY DATE: JUL 08, 2023@01:37:25 AUTHOR: COLE LOREDO EXP COSIGNER: URGENCY: STATUS: COMPLETED Telemetry (Cardiac) Monitor: Fishing Manager Telemetry initiation date/time: Jun@13:52. Telemetry indication: Known or Potential for Prolonged QT Cardiac History: HTN Cardiac rhythm interpretation: Afib w/rvr HR:105 MD Int:N/A QRS Int:.10 QT Int:.34 QTc Int:.45 Telemetry leads monitored this shift: II and V lead Alarm parameters verified this shift /mateo/ COLEXuan CROWEHomero FACUNDO EMPLOYEE COMMUNICATIONS COORDINATOR Signed: 07/08/2023 01:38 FACUNDOGUILLEXuan SINGH [facility] Jul 07, 2023 11:46 PM NURSING INPATIENT NOTE: LOCAL TITLE: [facility] NURSING PROGRESS NOTE STANDARD TITLE: NURSING INPATIENT NOTE DATE OF NOTE: JUL 07, 2023@23:46 ENTRY DATE: JUL 07, 2023@23:47:36 AUTHOR: PHAM EDWARDS EXP COSIGNER: URGENCY: STATUS: COMPLETED Nursing Shift Note Nursing care provided from [phone] Highlights from shift: The pt has been pleasant and cooperative. Denied chest pain and short of breath; Spo2 has been in the 90s in RA. Wheezy noted while auscultating; Prn inhaler and neb given with a good relief. First dose of Dofetilide was given at about 1845; EKG was obtained 2 hours later. The pt appeared without any acute distress throughout the shift See ICCA for detailed assessment, Education provided on medication/cares this shift as needed SKIN REINSPECTION/REASSESSMENT SKIN INSPECTION: Skin Color: Pale Skin Temperature: Warm Skin Moisture: Normal Skin Turgor: Elastic (normal/immediate) Casper Skin Assessment: The patient's Casper Scale Score is 18. The patient is at mild risk for development of pressure ulcer/injury. Sensory perception -- ability to respond meaningfully to pressure-related discomfort No impairment. Moisture -- degree to which skin is exposed to moisture Rarely moist. Activity -- ability to change and control body position Walks occasionally. Mobility -- ability to change and control body position Slightly limited. Nutrition -- usual food intake patterns Adequate. Friction and shear Problem. RISK FACTORS THAT INCREASE RISK FOR DEVELOPING PRESSURE INJURIES: The patient/resident has the following: Neuropathy SKIN INTEGRITY: Intact SKIN/WOUND DRESSING: Location(s): buttock Clean Dry Intact Skin Interventions performed this shift: Patient turned [id number] or as appropriate while in bed. Head of Bed kept below 30 degrees unless otherwise ordered. /mateo/ PHAM INFANTE RN,BSN REGISTERED NURSE Signed: 07/07/2023 23:52 PHAM EDWARDS [facility] Jul 07, 2023 05:37 PM NURSING NOTE: LOCAL TITLE: TELEMETRY AND OXIMETRY CENTRALIZED NOTE STANDARD TITLE: NURSING NOTE DATE OF NOTE: JUL 07, 2023@17:37 ENTRY DATE: JUL 07, 2023@17:37:04 AUTHOR: CHAPIS KEYS EXP COSIGNER: URGENCY: STATUS: COMPLETED Telemetry (Cardiac) Monitor: Evening Shift Telemetry initiation date/time: Jun@13:52. Telemetry indication: KNOWN OR POTENTIAL FOR PROLONGED QT (i.e OVERDOSE)DOFETILIDE LOAD Cardiac History: HTN, PAROXYSMAL & PERSISTENT A-FIB Cardiac rhythm interpretation: A-fib w/RVR HR:109 MD Int:N/A QRS Int:.093 QT Int:.239 QTc Int:.322 Telemetry leads monitored this shift: II and V lead Alarm parameters verified this shift /mateo/ CHAPIS KEYS Pharmacy Data Analyst Signed: 07/07/2023 17:38 CHAPIS KEYS [facility] Jul 07, 2023 04:33 PM NURSING IMMUNIZATION NOTE: LOCAL TITLE: VAAES NSG COVID-19 VACCINE ADMINISTRATION STANDARD TITLE: NURSING IMMUNIZATION NOTE DATE OF NOTE: JUL 07, 2023@16:33 ENTRY DATE: JUL 07, 2023@16:34:17 AUTHOR: ZULEMA CHERRY EXP COSIGNER: URGENCY: STATUS: COMPLETED Defer vaccine, reassess in 1 year Reason: Patient decision /mateo/ ZULEMA CHERRY RN REGISTERED NURSE Signed: 07/07/2023 16:34 ZULEMA CHERRY [facility] Jul 07, 2023 04:32 PM IMMUNIZATION NOTE: LOCAL TITLE: INFLUENZA VACCINATION STANDARD TITLE: IMMUNIZATION NOTE DATE OF NOTE: JUL 07, 2023@16:32 ENTRY DATE: JUL 07, 2023@16:32:38 AUTHOR: ZULEMA CHERRY EXP COSIGNER: URGENCY: STATUS: COMPLETED The patient declines to receive the recommended dose of seasonal influenza vaccine. Immunization: INFLUENZA, UNSPECIFIED FORMULATION Refusal Reason: PATIENT DECISION Patient refuses all immunization(s) in the FLU group Date Documented: 07/07/23 16:33 /mateo/ ZULEMA CHERRY RN REGISTERED NURSE Signed: 07/07/2023 16:33 ZULEMA CHERRY [facility] Jul 07, 2023 03:04 PM NURSING INPATIENT NOTE: LOCAL TITLE: BELLO NURSING PROGRESS NOTE STANDARD TITLE: NURSING INPATIENT NOTE DATE OF NOTE: JUL 07, 2023@15:04 ENTRY DATE: JUL 07, 2023@15:04:32 AUTHOR: ZULEMA CHERRY EXP COSIGNER: URGENCY: STATUS: COMPLETED INITIAL SKIN INSPECTION/ASSESSMENT SKIN INSPECTION: Skin Color: Usual for ethnicity Skin Temperature: Warm Skin Moisture: Normal Skin Turgor: Elastic (normal/immediate) Casper Skin Assessment: The patient's Casper Scale Score is 18. The patient is at mild risk for development of pressure ulcer/injury. Sensory perception -- ability to respond meaningfully to pressure-related discomfort Slightly limited. Moisture -- degree to which skin is exposed to moisture Occasionally moist. Activity -- ability to change and control body position Walks occasionally. Mobility -- ability to change and control body position Slightly limited. Nutrition -- usual food intake patterns Adequate. Friction and shear No apparent problem. Dietitian consult initiated INTERVENTIONS: New or changed pressure ulcer/injury interventions or medical condition. Education: Provide patient/caregiver education regarding causes and prevention of pressure ulcers/injuries. Provide patient/caregiver education regarding treatment plan for pressure ulcers/injuries. Teach patient/caregiver importance of changing position frequently for pressure ulcer/injury prevention. Pressure-Redistribution measures: Elevate heels using pillows, foam blocks, or offloading boots Encourage small, frequent position changes Turn and reposition every two hours while in bed Use of pressure redistribution chair/wheelchair cushion/surface Reduce friction and shear: Elevate head of bed for meals, then lower within one hour after eating (unless contraindicated) Keep head of bed at or below 30 degrees when not eating Raise the knee when elevating head of bed Use of appropriate safe patient handling device to lift up in bed or turn (trapeze, sling, etc.) RISK FACTORS THAT INCREASE RISK FOR DEVELOPING PRESSURE INJURIES: The patient/resident has the following: History of previous or current pressure ulcer/injury Known vascular surgery or vascular disease Other: diabetic SKIN ALTERATIONS: Pressure Ulcer/Injury Documentation from the past year: No data available Pressure Ulcer/Injury: Wound - other than pressure ulcer/injury (includes open surgical wounds/incisions): Location: left buttock Wound Type: Partial thickness Wound Description: Wound Bed Tissue Types: Granulation Mallory-wound skin status: Intact Edema present Wound drainage: Amount: Scant Color: Red Characteristics: Sanguineous Second Wound - other than pressure ulcer/injury (includes open surgical wounds/incisions): Location: BLE Wound Type: Other: scabs Wound Description: Wound Bed Tissue Types: Other: scabbed over Mallory-wound skin status: No Edema Wound drainage none. SKIN/WOUND DRESSING: Location(s): buttock mepilex /es/ ZULEMA CHERRY RN REGISTERED NURSE Signed: 07/07/2023 15:11 ZULEMA CHERRY [facility] Jul 07, 2023 02:54 PM TREATMENT PLAN INTERDISCIPLINARY NOTE: LOCAL TITLE: ITP INTERDISCIPLINARY TREATMENT PLAN STANDARD TITLE: TREATMENT PLAN INTERDISCIPLINARY NOTE DATE OF NOTE: JUL 07, 2023@14:54 ENTRY DATE: JUL 07, 2023@14:54:44 AUTHOR: ZULEMA CHERRY EXP COSIGNER: URGENCY: STATUS: COMPLETED Interdisciplinary Treatment Plan (ITP) Date of current Admission: Medical problems to be addressed, including reason for admission as well as all active medical problems: 1. At risk indicators at time of admission: Pain noted other than 0 on 0-10 pain scale, Functional screen indicates need for adaptive device for mobility/PT consult sent, Skin integrity screen indicates risk for breakdown Support services in community: Current living situation: Patient/Family input to care: Patient Goals: Treatment plan/Interventions: Turn and reposition every 2 hours while in bed., Encourage activity as tolerated., Educated Patient on use of Pain Scale, Perform Range of Motion Exercises when turning/repositioning., Pressure Ulcer Prevention Protocol implemented., Assess patients'coordination/balance before assisting with transfer/mobility., Use stable shoes or treaded slippers, and use glasses and hearing aids if indicated., Utilize bed alarm if indicated. Measurable Outcomes: Patient will verablize understanding of the 0-10 pain scale., Patient will deny pain or report that pain is managed at an acceptable level., Patient will not fall during hospitalization., Skin will remain intact/or no further breakdown., Patient will maintain/achieve satisfactory nutritional intake and a nutrition consult will be completed., Patient will maintain maximum level of function., Blood sugars will be within targeted goal. Discharge Plan: Anticipated resources needed for discharge: No anticipated resources needed at this time. Anticipated educational needs: Tests/treatments/procedures: risks and benefits, disease process, medication management, and discharge instructions. Participants: Transportation needs: Plan of care shared with patient/family and verbalized with understanding. /mateo/ ZULEMA CHERRY RN REGISTERED NURSE Signed: 07/07/2023 14:57 ZULEMA CHERRY [facility] Jul 07, 2023 02:43 PM NURSING ADMISSION EVALUATION NOTE: LOCAL TITLE: [facility] ACUTE INPATIENT NSG ADMISSION SCREEN STANDARD TITLE: NURSING ADMISSION EVALUATION NOTE DATE OF NOTE: JUL 07, 2023@14:43 ENTRY DATE: JUL 07, 2023@14:44 AUTHOR: ZULEMA CHERRY EXP COSIGNER: URGENCY: STATUS: COMPLETED = ALLERGY/ADVERSE DRUG REACTION (ADR) REVIEW (MRT5) = FACILITY ALLERGY/ADR -------- No Remote Allergy/ADR Data available for this patient [facility] No Known Allergies Allergy/Adverse Drug Reaction Review to be conducted by: GENERAL INFORMATION Admission information given by: Patient Is there a legal guardian/conservator? No Preferred language for discussing healthcare: [place] Preferred mode of communication: Verbal Sensory Deficits & Contributing Information: Hearing deficit: Bilateral, states he needs a hearing aide Items at Bedside: Mobility device: Rollator = INFECTIOUS DISEASE RISK SCREEN = Travel Screen: Have you traveled within the [place] within the last 21 days? No Have you traveled outside the [place] within the last 21 days? No Within the last 14 days, have you had: No known exposure Other Exposure to Infectious Disease: No known exposure Patient reported the following symptoms: No Symptoms Present History of Multiple Drug Resistant Organism (MDRO): No = NUTRITION SCREENING = Malnutrition Screening Lost weight recently without trying: No (0 points) Have you been eating poorly because of decreased appetite? No (0 points) Total Score: 0 Other Nutrition Screening Questions: The patient does not report any concerns with their teeth that would make it difficult to eat. The patient does not report overeating to the point of feeling sick or making themselves vomit. The patient denies gaining 10 lbs.(4.5 kgs) or more in the past 3 months without trying. The patient reports having a food allergy, intolerance, special dietary need, or ethnic, cultural or mormonism preference that affects their dietary need. Specify: cucc[employer]Navendisers Food Insecurity Screening Within the past 12 months, you worried whether your food would run out before you got money to buy more. Never true Within the past 12 months, the food you bought just did not last you and you did not have the money to get more. Never true Food Insecurity Disposition: RISK SCREENINGS Alcohol Screen: Screen to be completed by: Nurse: SCREEN FOR ALCOHOL (AUDIT-C) An alcohol screening test (AUDIT-C) was negative (score=4). 1. How often did you have a drink containing alcohol in the past year? Four or more times a week 2. How many drinks containing alcohol did you have on a typical day when you were drinking in the past year? One or two drinks 3. How often did you have six or more drinks on one occasion in the past year? Never *Does the patient consume alcohol? No Tobacco Use: Former - tobacco user Do you currently or have you ever used alternative nicotine products? No Substance Use Assessment: *Do you use any recreational drugs or narcotics (prescription or non-prescription)? No SUICIDE SCREEN [place] Suicide Severity Rating Scale (C-SSRS) 1. Over the past month, have you wished you were or wished you could go to sleep and not wake up? No 2. Over the past month, have you had any actual thoughts of killing yourself? No 3. Over the past month, have you been thinking about how you might do this? Response not required due to responses to other questions. 4. Over the past month, have you had these thoughts and had some intention of acting on them? Response not required due to responses to other questions. 5. Over the past month, have you started to work out or worked out the details of how to kill yourself? Response not required due to responses to other questions. 6. If yes, at any time in the past month did you intend to carry out this plan? Response not required due to responses to other questions. 7. In your lifetime, have you ever done anything, started to do anything, or prepared to do anything to end your life (for example, collected pills, obtained a gun, gave away valuables, went to the roof but didn't jump)? No 8. If YES, was this within the past 3 months? Response not required due to responses to other questions. C-SSRS Screen is Negative EXPOSURE TO VIOLENCE AND ABUSE PRE-SCREEN Are you worried for your safety, that you will be hurt or harmed? No Has anyone tried to force you to sign papers or use your money against your will? No POST TRAUMATIC STRESS DISORDER CARE CONSIDERATIONS To minimize a startle response, what is your preference on how best to awaken you? No preference ADVANCE DIRECTIVE Notification of Rights Related to Advance Directives: Written notification not provided. Explain: patient declined *The patient wishes to receive information about or assistance with Advance Care Planning and/or Advance Directive: No SPIRITUALITY Are there mormonism practices or spiritual concerns you want the er manager, your provider, and other health care team members to know? No ANTICIPATED DISCHARGE NEEDS Where do you live? Housing owned/rented by : Method of transportation upon discharge: Unknown: Comment: will need ride at discharge Are there any anticipated barriers to discharge? Yes: Anticipated Barriers to Discharge: Other: ride needed Consult/notification placed to Social Work. EDUCATIONAL NEEDS/LEARNING STYLE Barriers to learning: None evident Patient learning style preferences: Demonstration Printed materials Verbal explanation VISITOR INFORMATION Will you have a primary support person while in the hospital? No Patient's Visitor Restriction preferences: No Privacy Review: == JONES FALL SCALE & TIPS PROGRAM == Jones Fall Scale: The Jones Fall scale was performed and score was 45. This is indicative of high risk for falls. History of falling: immediate or within 3 months? No Secondary diagnosis: No Ambulatory aid: Crutches/cane(s)/walker Intravenous therapy/Heparin lock: Yes Gait/Transferring: Weakness Mental Status: Oriented to own ability/knows own limitations Fall Tailoring Interventions for Patient Safety (TIPS) Fall TIPS initiated with patient: Yes Interventions: Communicate recent fall or risk of harm Walking Aids: Walker Assistance out of bed: Call for assistance before getting out of bed == PAIN ASSESSMENT == Patient's acceptable pain goal: 3 Sometimes distracts me Are you currently experiencing pain? Yes - DVPRS scale used to assess Location: right hip/bilat knee [employer] and Veterans Pain Rating Scale (DVPRS): 3 Sometimes distracts me Pain Score: 3 Primary Pain Assessment: Pain Type: Chronic Describe Pain (Quality): Musculoskeletal: Aching, Throbbing Pain Alleviating Interventions: Medication, see MAR Kwabena /mateo/ ZULEMA CHERRY RN REGISTERED NURSE Signed: 07/07/2023 14:54 ZULEMA CHERRY [facility] Jul 07, 2023 02:42 PM NURSING NOTE: LOCAL TITLE: TELEMETRY AND OXIMETRY CENTRALIZED NOTE STANDARD TITLE: NURSING NOTE DATE OF NOTE: JUL 07, 2023@14:42 ENTRY DATE: JUL 07, 2023@14:47:14 AUTHOR: ANGELA SHAFFER EXP COSIGNER: URGENCY: STATUS: COMPLETED Telemetry (Cardiac) Monitor: ADMIT/LORIE Shift Telemetry initiation date/time: Jun@13:52. Telemetry indication: KNOWN OR POTENTIAL FOR PROLONGED QT (i.e OVERDOSE)DOFETILIDE LOAD Cardiac History: HTN, PAROXYSMAL & PERSISTENT A-FIB Cardiac rhythm interpretation: A-FIB HR:86-120 MD Int:N/A QRS Int:.093 QT Int:.317 QTc Int: Telemetry leads monitored this shift: II and V lead Alarm parameters verified this shift /mateo/ CALLY PALMA Maintenance Journeyman Signed: 07/07/2023 14:50 ANGELA SHAFFER [facility] Jul 07, 2023 02:39 PM LIFE-SUSTAINING TREATMENT PLAN: LOCAL TITLE: LIFE-SUSTAINING TREATMENT STANDARD TITLE: LIFE-SUSTAINING TREATMENT PLAN DATE OF NOTE: JUL 07, 2023@14:39 ENTRY DATE: JUL 07, 2023@14:39:40 AUTHOR: ASHLEY VELARDE EXP COSIGNER: URGENCY: STATUS: COMPLETED LIFE-SUSTAINING TREATMENT (LST) DECISION-MAKING CAPACITY TO MAKE DECISIONS ABOUT LIFE_SUSTAINING TREATMENTS Patient has capacity to make decisions about LSTs. 'S VALUES AND GOALS OF CARE - Goals as reported by the patient (or surrogate): To live as long as I can. If I end up on life support, my family can make the decision for me if that time comes. LIFE-SUSTAINING TREATMENT PLAN * In the event of cardiopulmonary arrest: Full code: Attempt CPR. Other Life-Sustaining Treatments: Mechanical Ventilation - In the event of respiratory distress or failure when the patient HAS A PULSE, the patient: Mechanical ventilation discussed and patient does not want to limit at this time. INFORMED CONSENT Patient gave oral informed consent for life-sustaining treatment plan. NAME OF SUPERVISING PRACTITIONER No Attending/supervising practitioner required. --------- Time spent discussing and documenting this care planning activity. Up to 30 minutes /mateo/ ASHLEY VELARDE APRN NURSE PRACTITIONER Signed: 07/07/2023 14:41 Receipt Acknowledged By: 07/08/2023 12:38 /mateo/ GEOVANNA DUMAS DNP, APRN,ARDMS for ASHLEY HAMILTON [facility]
--- OUTSIDE RECORDS SUMMARY | 2024-03-25 10:31 | XMS_ITS | Encounter Summary ---
Author Name [facility] [place] Organization [facility] [place] Address [address] [place] [id number] Care Team Providers Care Variety Performer Name Role Phone GELACIO MICHEL Primary Care [...] Member ID Insurance Provider's Telephone Number Policy Pual's Name Patient's Relationship to Policy Paul MEDICARE (WNR) MEDICARE (M) PART A Jul 21, 2014 PART A [id number] Miguelito CARRILLO PATIENT Selected Encounter This section includes the information on record at [place] for the Encounter. Date/Time Encounter Type Encounter Description Reason Provider Source Jul 07, 2023 09:00 AM ECHO TRANSESOPHAGEAL CARDIAC ECHO ICD-10-CM I48.0 Paroxysmal atrial fibrillation MARIE,PETE Weber IHE Encounter Template Text not used by [place] Assessments - Encounter Diagnoses This section includes the primary and secondary diagnoses documented for the Encounter. Date/Time Primary/Secondary Diagnosis Diagnosis Name Provider Source Jul 08, 2023 04:15 PM PRIMARY Paroxysmal atrial fibrillation BETINA PEREZ [facility] Plan of Treatment: Future Appointments (+ 6 months) and Future Tests (+/- 45 days) The Plan of Treatment section includes future care activities for the patient from all [facility] treatment[facility]ilities. This section includes future appointments and future orders which are active, pending or scheduled. Future Appointments This section includes appointments that were scheduled to occur 6 months from the date of the Encounter, up to a maximum of 20 appointments. The data comes from all [facility]. Appointment Date/Time Appointment Type Appointme nt Facility Name Jul 11, 2023 11:00 AM [facility]BULATORY - [facility]ICINE [facility] Aug 12, 2023 03:00 PM AMBULATORY - NONE [facility] Aug 13, 2023 10:30 AM [place] [facility] Aug 13, 2023 11:30 AM [place] [facility] Aug 18, 2023 02:00 PM AMBULATORY - REH[facility] Sep 16, 2023 03:00 PM AMBULATORY - NONE [facility] Sep 17, 2023 02:30 PM [place] [facility] Oct 07, 2023 12:15 PM [place] [facility] Oct 07, 2023 01:00 PM [place] [facility] Oct 07, 2023 02:00 PM [place] [facility] Oct 27, 2023 11:30 AM AMBULATORY - NONE [facility] Nov 05, 2023 01:30 PM AMBULATORY - NONE [facility] December 01, 2023 12:30 PM [place] [facility] December 07, 2023 07:00 AM [facility] [place] [facility] Dec 25, 2023 02:20 PM [facility] Dec 25, 2023 02:45 PM [place] [facility] Dec 30, 2023 01:30 PM AM[place] - [place] [facility] Jan 06, 2024 12:30 PM [place] [facility] Jan 06, 2024 01:00 PM [place] [facility] Jan 06, 2024 02:00 PM [facility] Active, Pending, and Scheduled Orders This section includes a listing of several types of active, pending, and scheduled orders, including clinic medications orders, diagnostic test orders, procedure orders and consult orders; where the start date of the order is 45 days before the date of the Encounter or 45 days after the date of theEncounter. The data comes from all [place] treatment facilities. Test Date/Time Test Type Test Details Facility Name Jul 09, 2023 04:05 PM Laboratory - Chemi angelyy Order BASIC METABOLIC PANEL+MG PLASMA WC ONCE [facility] Lab Results: +/- 30 days of the encounter This section includes the Chemistry and Hematology Lab Results on record with [place] for the patient. Radiology Reports and Pathology Reports are provided separately, in subsequent sections. Lab Results This section contains the Chemistry/Hematology Results that were resulted 30 days before or 30 daysafter the date of the Encounter. Date/Time Source Result Type Result - Unit Interpretation Reference Range Comment Jul 10, 2023 07:19 AM [facility] BNP Specimen Type: PLASMA No comment entered. Ordering Provider: ASHLEY VELARDE Report Released Date/Time: Jul 09, 2023 01:25 PM Reporting Lab: [facility] [id number] Performing Lab: [facility] [phone] BNP 25 pg/mL <99 Jul 10, 2023 07:19 AM [facility] BASIC METABOLIC PANEL+MG Specimen Type: PLASMA No comment entered. Ordering Provider: ASHLEY VELARDE Report Released Date/Time: Jul 09, 2023 01:25 PM Reporting Lab: [facility] [phone] Performing Lab: [facility] [address] CREATININE 1.0 mg/dL 0.7-1.2 UREA NITROGEN 14 mg/dL 8-26 GLUCOSE 92 mg/dL 70-100 SODIUM 140 mmol/L 136-145 POTASSIUM 4.1 mmol/L 3.5-5.1 CHLORIDE 102 mmol/L 98-107 CO2 25 mmol/L 22-29 CALCIUM 9.3 mg/dL 8.4-10.2 MAGNESIUM 2.1 mg/dL 1.6-2.6 ANION GAP 13 mmol/L 5-15 .CREAT EGFR(CKD-EPI) 79 >60 Jul 09, 2023 01:54 PM [facility] BASIC METABOLIC PANEL+MG Specimen Type: PLASMA No comment entered. Ordering Provider: ASHLEY VELARDE Report Released Date/Time: Jul 08, 2023 02:49 PM Reporting Lab: [facility] [address] Performing Lab: [facility] [address] CREATININE 1.0 mg/dL 0.7-1.2 UREA NITROGEN 12 mg/dL 8-26 GLUCOSE 108 mg/dL H 70-100 SODIUM 141 mmol/L 136-145 POTASSIUM 4.4 mmol/L 3.5-5.1 CHLORIDE 102 mmol/L 98-107 CO2 31 mmol/L H 22-29 CALCIUM 9.7 mg/dL 8.4-10.2 MAGNESIUM 2.0 mg/dL 1.6-2.6 ANION GAP 8 mmol/L 5-15 .CREAT EGFR(CKD-EPI) 79 >60 Jul 09, 2023 07:16 AM [facility] BASIC METABOLIC PANEL+MG Specimen Type: PLASMA No comment entered. Ordering Provider: ASHLEY VELARDE Report Released Date/Time: Jul 08, 2023 07:58 AM Reporting Lab: [facility] [phone] Performing Lab: [facility] [address] CREATININE 1.0 mg/dL 0.7-1.2 UREA NITROGEN 14 mg/dL 8-26 GLUCOSE 99 mg/dL 70-100 SODIUM 139 mmol/L 136-145 POTASSIUM 3.4 mmol/L L 3.5-5.1 CHLORIDE 102 mmol/L 98-107 CO2 26 mmol/L 22-29 CALCIUM 9.2 mg/dL 8.4-10.2 MAGNESIUM 2.0 mg/dL 1.6-2.6 ANION GAP 11 mmol/L -15 .CREAT EGFR(CKD-EPI) 79 >60 Jul 08, 2023 03:08 PM [facility] BASIC METABOLIC PANEL+MG Specimen Type: PLASMA No comment entered. Ordering Provider: ASHLEY VELARDE Report Released Date/Time: Jul 08, 2023 10:12 AM Reporting Lab: [facility] [phone] Performing Lab: [facility] [address] CREATININE 1.1 mg/dL 0.7-1.2 UREA NITROGEN 12 mg/dL 8-26 GLUCOSE 108 mg/dL H 70-100 SODIUM 138 mmol/L 136-145 POTASSIUM 3.6 mmol/L 3.5-5.1 CHLORIDE 102 mmol/L 98-107 CO2 28 mmol/L 22-29 CALCIUM 9.3 mg/dL 8.4-10.2 MAGNESIUM 2.0 mg/dL 1.6-2.6 ANION GAP 8 mmol/L 5-15 .CREAT EGFR(CKD-EPI) 71 >60 Jul 08, 2023 07:17 AM [facility] ALBUMIN Specimen Type: PLASMA No comment entered. Ordering Provider: ASHLEY VELARDE Report Released Date/Time: Jul 07, 2023 01:58 PM Reporting Lab: [facility] [phone] Performing Lab: [facility] [address] ALBUMIN 3.6 g/dL 3.5-5.2 Jul 08, 2023 07:17 AM [facility] BASIC METABOLIC PANEL+MG Specimen Type: PLASMA No comment entered. Ordering Provider: ASHLEY VELARDE Report Released Date/Time: Jul 07, 2023 01:58 PM Reporting Lab: [facility] [phone] Performing Lab: [facility] [address] CREATININE 1.1 mg/dL 0.7-1.2 UREA NITROGEN 14 mg/dL 8-26 GLUCOSE 105 mg/dL H 70-100 SODIUM 137 mmol/L 136-145 POTASSIUM 3.0 mmol/L L 3.5-5.1 CHLORIDE 100 mmol/L 98-107 CO2 27 mmol/L 22-29 CALCIUM 9.0 mg/dL 8.4-10.2 MAGNESIUM 1.9 mg/dL 1.6-2.6 ANION GAP 10 mmol/L 5-15 .CREAT EGFR(CKD-EPI) 71 >60 Jul 07, 2023 04:43 PM [facility] FINGERSTICK GLUCOSE Specimen Type: BLOOD Comment: Save Result Ordering Provider: ETHAN MOSS Report Released Date/Time: Jul 08, 2023 10:19 AM Reporting Lab: [facility] [phone] Performing Lab: [facility] [address] FINGERSTICK GLUCOSE 116 mg/dL 70-100 Jul 07, 2023 06:56 AM [facility] PROTHROMBIN TIME/INR Specimen Type: PLASMA No comment entered. Ordering Provider: DELIA HOLGUIN Report Released Date/Time: Jun 26, 2023 12:06 PM Reporting Lab: [facility] [address] Performing Lab: [facility] [phone] .INR 1.3 H 0.8-1.1 .PT 15.1 s H 9.4-12.5 Jul 07, 2023 06:56 AM [facility] CBC Specimen Type: BLOOD No comment entered. Ordering Provider: DELIA HOLGIUN Report Released Date/Time: Jun 26, 2023 12:06 PM Reporting Lab: [facility] [address] Performing Lab: [facility] [address] WBC 9.78 10*3/uL 4.0-11.0 RBC 5.08 10*6/uL 4.6-6.2 HGB 16.4 g/dL 13.5-17.9 HCT 48.1 41-54 MCV 94.7 fL 80-100 MCH 32.3 pg 27-33 MCHC 34.1 g/dL 32.0-37.5 PLT 244 10*3/uL 150-400 MPV 10.0 fL 7.4-10.4 RDW 12.7 11.5-14.5 Jul 07, 2023 06:56 AM [facility] BASIC METABOLIC PANEL+MG Specimen Type: PLASMA No comment entered. Ordering Provider: DELIA HOLGUIN Report Released Date/Time: Jun 26, 2023 11:50 AM Reporting Lab: [facility] [address] Performing Lab: [facility] [address] CREATININE 1.1 mg/dL 0.7-1.2 UREA NITROGEN 14 mg/dL 8-26 GLUCOSE 104 mg/dL H 70-100 SODIUM 137 mmol/L 136-145 POTASSIUM 3.3 mmol/L L 3.5-5.1 CHLORIDE 99 mmol/L 98-107 CO2 24 mmol/L 22-29 CALCIUM 9.5 mg/dL 8.4-10.2 MAGNESIUM 2.2 mg/dL 1.6-2.6 ANION GAP 14 mmol/L 5-15 .CREAT EGFR(CKD-EPI) 71 >60 Jul 02, 2023 12:10 PM [facility] BASIC METABOLIC PANEL+MG Specimen Type: PLASMA No comment entered. Ordering Provider: FLAQUITO VIRGEN Report Released Date/Time: May 02, 2023 01:39 PM Reporting Lab: [facility] [address] Performing Lab: [facility] [address] [facility] [address] CREATININE 1.1 mg/dL 0.7-1.2 UREA NITROGEN 16 [...] Source Jul 07, 2023 07:50 PM 3 [facility] Jul 07, 2023 06:53 PM 4 [facility] Jul 07, 2023 02:52 PM 3 [facility] Jul 07, 2023 11:49 AM 96 /min 119/85 mm[Hg] 93 % [facility] Jul 07, 2023 11:36 AM 127 /min 79 % [facility] Social History: Smoking Status (Most current) and Tobacco Use (All prior to encounter date) This section includes the most current, and the historical, smoking and tobacco- related health factors from the [place] facility where the Encounter took place. Current Smoking Status This section includes the most current smoking, or tobacco-related health factor, from the [place] facility where the Encounter took place. Date/Time Current Smoking Status Comment Tasha woods Dec 19, 2020 12:07 PM VA-TOBACCO QUIT 5 TO < 15 YRS [facility] Tobacco Use History This section includes a history of the smoking, or tobacco-related health factors, that were collected on or before the date of the Encounter. The data comes from the [place] facility where the Encounter took place. Date/Time Smoking Status/Tobacco Use Comment Seth adame Dec 19, 2020 12:07 PM NE-TOBACCO QUIT 5 TO < 15 YRS [facility] Aug 02, 2015 09:49 AM CURRENT TOBACCO USER [facility] Jun 06, 2014 08:51 AM CURRENT TOBACCO USER [facility] May 04, 2013 09:29 AM CURRENT TOBACCO USER [facility] Apr 24, 2012 07:40 AM CURRENT TOBACCO USER [facility] Advance Directives: All historical and current Section Date Range: From patient's date of to the date document was created. This section includes ALL of a patient's completed or amended [place] Advance and Rescinded Directives. The entries below indicate that a directive exists for the patient, but an actual copy is not included with this document. The data comes from all [place] facilities. Date Advance Directives Provider Source Jan 02, 2023 STATE-AUTHORIZED PORTABLE ORDERS [facility] Encounter Notes: All associated encounter notes This section contains the clinical notes associated to the Encounter. Date/Time Encounter Note(s) Provider Source Jul 08, 2023 04:15 PM CARDIOLOGY PROCEDURE NOTE: LOCAL TITLE: ECHOCARDIOGRAM PROCEDURE STANDARD TITLE: CARDIOLOGY PROCEDURE NOTE DATE OF NOTE: JUL 08, 2023@16:15:44 ENTRY DATE: JUL 08, 2023@16:15:44 AUTHOR: CLINICAL,DEVICE PRO EXP COSIGNER: URGENCY: STATUS: COMPLETED PROCEDURE SUMMARY CODE: Machine Resulted DATE/TIME PERFORMED: JUL 07, 2023@10:26:0 DOCUMENT IN [employer] IMAGING SEE FULL REPORT IN [facility]ISTA IMAGING SIGNATURE NOT REQUIRED SEE SIGNATURE IN VISTA IMAGING ([employer] CLAUS OUTPT) AUTO-INSTRUMENT DIAGNOSIS Procedure: CLAUS Release Status: Released Off-Line Verified Date Verified: Jul 08, 2023@16:15:23 Study ID: [id number] [employer] + + [place], [place] + + [facility] [address] [place] Transesophageal Echocardiogram Report + + :Name: GILDA CARRILLO CLAUDIA Study Date: 07/07/2023 : : Patient Location: [facility] ECHO PROCEDURE : :: 1950 Gender: Male : :Age: 72 yrs : :CP Order Number: [id number] : :Reason For Study: r/o thrombus : + + :Dealer Development Manager: Darshana Tijerina RDCS : + + :Referring Physician: DELIA HOLGUIN : + + Interpretation Summary The left ventricular systolic function is normal. The visually estimated ejection fraction is 55-60%. The left ventricular wall thickness appeared normal. Mild to moderate tricuspid regurgitation. Moderate biatrial enlargement. There is severe interatrial septal hypertrophy. A Chiari network is seen in the right atrium. The rhythm is atrial fibrillation. Procedure A 2D transesophageal echocardiogram ([id number]) was performed. Left Ventricle The left ventricle is normal in size. There is normal left ventricular wall thickness. The left ventricular systolic function is normal. The visually estimated ejection fraction is 55-60%. Left Atrium The left atrium is moderately dilated. Right Ventricle The right ventricle is normal size. The right ventricular systolic function is normal. Right Atrium The right atrium is moderately dilated. Mitral Valve The mitral valve is normal in structure and function. There is trivial mitral valve regurgitation. Tricuspid Valve There is mild to moderate tricuspid regurgitation. Aortic Valve The aortic valve is trileaflet. There is mild aortic sclerosis without stenosis. Pulmonary Veins/Inferior Vena Cava/Hepatic Veins The inferior vena cava is normal in size, and collapses normally with respiration. + + :Measurements : :LVIDd: 3.4 cm(3.9-5.9 cm) IVSd: 0.64 cm(0.6-1.1 cm) : : : : :LVPWd: 0.68 cm(0.6-1.1 cm) : + + MMode/2D Measurements \T\ Calculations EDV(Teich): 46.3 ml Reading Physician:04:15 PM Administrative Closure: 07/08/2023 by: CLINICAL,DEVICE PROXY SERVICE CLINICAL,DEVICE PROXY SERVICE [facility] Jul 07, 2023 10:43 AM NURSING INPATIENT NOTE: LOCAL TITLE: [facility] NURSING PROGRESS NOTE STANDARD TITLE: NURSING INPATIENT NOTE DATE OF NOTE: JUL 07, 2023@10:43 ENTRY DATE: JUL 07, 2023@10:43:58 AUTHOR: ERENDIRA CABALLERO EXP COSIGNER: URGENCY: STATUS: COMPLETED Post Transesophageal Echocardiography (CLAUS) Instructions: CLAUS completed at: 1100 Include medication: 15ml PO 2% PO viscous lidocaine, 12 sprays 4% lidocaine spray, 3mg IV versed, 112.5mg IV fentanyl. Patient to be NPO until Jun@12:45/return of gag reflex PATIENT EDUCATION: Participant: Patient indicates readiness to learn, verbalizes and demonstrates understanding of instructions. Denies further questions. Teaching Method 1 on 1 Written - Patient Instruction Sheet for Conscious Sedation and CLAUS pamphlet. Objectives discussed with participant: 1. When you are able to eat/drink, start with small sips of water and make sure your swallowing is back to normal before attempting food items. 2. No driving for 24 hours 3. No use of complex equipment such as lawnmowers or power tools for 24 hours. 4. Do not drink ANY alcoholic beverages until the next day. 5. Do not make important personal, legal, or business decisions until the next day. 6. Move slowly and carefully; do not make sudden position changes. Be alert for dizziness or lightheadedness. 7. Have a responsible person with you until the next day. 8. Drink extra fluids today. If you feel nauseated, take small amounts of liquids and food. Notify your healthcare provider if you continue to feel nauseated for a couple days. 9. Take your regular medications unless you are told not to. 10. Notify your healthcare provider if you have not passed your urine within 8 hours after your procedure was completed. 11. It is normal if you have a sore throat for 1 to 2 days after the procedure. Notify your doctor if it persists longer. 12. Notify your MD if you notice your are spitting/coughing up blood or passing black, tarry stools. Patient transported to 2L after patient obtained an Aroldo score equal to or greater than 8. Lab K+ was 3.3, 40 Meq PO K+ given before CLAUS on 2L per 2L RN. Report given to: 2L Delia FLANAGAN (FISCAL ACCOUNTANT) updated Patient tolerated well, no events. See SNAP form for more details. Patient scheduled to be admitted for [facility]. /mateo/ Erendira Caballero RN Registered Nurse Signed: 07/07/2023 11:10 ERENDIRA CABALLERO [facility] Jul 07, 2023 09:13 AM LIFE-SUSTAINING TREATMENT PLAN: LOCAL TITLE: LIFE-SUSTAINING TREATMENT STANDARD TITLE: LIFE-SUSTAINING TREATMENT PLAN DATE OF NOTE: JUL 07, 2023@09:13 ENTRY DATE: JUL 07, 2023@09:13:55 AUTHOR: CHAKA PEREZ EXP COSIGNER: URGENCY: STATUS: COMPLETED LIFE-SUSTAINING TREATMENT (LST) DECISION-MAKING CAPACITY TO MAKE DECISIONS ABOUT LIFE_SUSTAINING TREATMENTS Patient has capacity to make decisions about LSTs. 'S VALUES AND GOALS OF CARE - Goals as reported by the patient (or surrogate): Would like to talk to inpatient team about adjusting his code status to full code but wants to talk about assisted mechnical ventilation, etc. LIFE-SUSTAINING TREATMENT PLAN * In the event of cardiopulmonary arrest: DNAR/DNR: Except provide CPR during the following procedure and time frame: transesophageal echocardiogram; he would like to revisit a permanent code status change with the inpatient team after his procedure. Other Life-Sustaining Treatments: No other life-sustaining treatments were discussed INFORMED CONSENT Patient gave oral informed consent for life-sustaining treatment plan. NAME OF SUPERVISING PRACTITIONER Name of supervising practitioner: Fredi Sharma Time spent discussing and documenting this care planning activity. /mateo/ CHAKA PEREZ MD COIL REWIND MACHINE OPERATOR/ED/SUBHA ENRIQUEZ Signed: 07/07/2023 09:50 CHAKA PEREZ [facility]
--- OUTSIDE RECORDS SUMMARY | 2024-03-25 10:32 | XMS_ITS | Encounter Summary ---
Author Name [facility] [place] [facility] [place] [facility] [place] [facility] [place] Address [address] [place] [address] Care Team Providers Care Lease Purchase Driver Name Role Phone GELACIO MICHEL Primary Care [...] PART A Jul 21, 2014 PART A [phone] Miguelito APPLE PATIENT Selected Encounter This section includes the information on record at [place] for the Encounter. Date/Time Encounter Type Encounter Description Reason Provider Source May 02, 2023 03:00 PM OFFICE O/P EST HI 40-54 MIN CARDIOLOGY ICD-10-CM I51.89 Other ill-defined heart diseases CLOVER BAILEY [facility] Encounter Template Text not used by [place] Assessments - Encounter Diagnoses This section includes the primary and secondary diagnoses documented for the Encounter. Date/Time Primary/Secondary Diagnosis Diagnosis Name Provider Source May 02, 2023 04:01 PM PRIMARY Other ill-defined heart diseases FLAQUITO BAILEY [facility] May 02, 2023 04:01 PM SECONDARY Essential (primary) hypertension FLAQUITO BAILEY [facility] May 02, 2023 04:01 PM SECONDARY Paroxysmal atrial fibrillation FLAQUITO BAILEY [facility] Plan of Treatment: Future Appointments (+ 6 months) and Future Tests (+/- 45 days) The Plan of Treatment section includes future care activities for the patient from all [place] [facility]. This section includes future appointments and future orders which are active, pending or scheduled. Future Appointments This section includes appointments that were scheduled to occur 6 months from the date of the Encounter, up to a maximum of 20 appointments. The data comes from all [place] treatment facilities. Appointment Date/Time Appointment Type Appointme nt Facility Name May 09, 2023 01:30 PM AMBULATORY - NONE [facility] May 16, 2023 01:30 PM AMBULATORY - NONE [facility] Jun 05, 2023 01:30 PM AMBULATORY - NONE [facility] Jun 05, 2023 03:30 PM AMB[facility]ATORY - NONE [facility] Jun 09, 2023 07:00 AM AMBULATORY - NONE [place] [facility] Jul 02, 2023 01:30 PM AMBULATORY - [place]ICINE [place] [facility] Jul 02, 2023 02:30 PM [place]ORY - [place]ICINE [place] [facility] Jul 07, 2023 07:00 AM AMBULATORY - NONE [place] [facility] Jul 07, 2023 07:30 AM AMBUL[place]ORY - [place]ICINE [place] [facility] Jul 07, 2023 08:00 AM AMBUL[place]ORY [place] [facility] Jul 07, 2023 09:00 [facility] Jul 07, 2023 10:15 AM AMBULATORY - NONE [place] [facility] Jul 07, 2023 10:30 AM [place]ORY - [place]ICINE [place] [facility] Jul 11, 2023 11:00 AM AMBULATORY - MEDICINE [facility] Aug 12, 2023 03:00 PM AMBULATORY - NONE [facility] Aug 13, 2023 10:30 AM [facility] Aug 13, 2023 11:30 AM [place] - [place]ICINE [place] [facility] Aug 18, 2023 02:00 PM AMBULATORY - REHAB MEDICIN [facility] Sep 16, 2023 03:00 PM AMBULATORY - NONE [facility] Sep 17, 2023 02:30 PM AM[facility]ULATORY - MEDICINE [place] [facility] Lab Results: +/- 30 days of the encounter This section includes the Chemistry and Hematology Lab Results on record with [place] for the patient. Radiology Reports and Pathology Reports are provided separately, in subsequent sections. Lab Results This section contains the Chemistry/Hematology Results that were resulted 30 days before or 30 daysafter the date of the Encounter. Date/Time Source Result Type Result - Unit Interpretation Reference Range Comment May 16, 2023 01:14 PM [facility] BASIC METABOLIC PANEL+MG Specimen Type: PLASMA No comment entered. Ordering Provider: FLAQUITO BAILEY Report Released Date/Time: May 06, 2023 09:43 AM Reporting Lab: [facility] [id number] Performing Lab: [facility] [id number] CREATININE 1.1 mg/dL 0.7-1.2 UREA NITROGEN 18 mg/dL 8-26 GLUCOSE 96 mg/dL 70-100 SODIUM 140 mmol/L 136-145 POTASSIUM 3.4 mmol/L L 3.5-5.1 CHLORIDE 101 mmol/L 98-107 CO2 27 mmol/L 22-29 CALCIUM 9.5 mg/dL 8.4-10.2 MAGNESIUM 2.2 mg/dL 1.6-2.6 ANION GAP 12 mmol/L 5-15 .CREAT EGFR(CKD-EPI ) 71 >60 May 02, 2023 12:55 PM [facility] BASIC METABOLIC PANEL+MG Specimen Type: PLASMA No comment entered. Ordering Provider: FLAQUITO BAILEY Report Released Date/Time: Feb 28, 2023 03:02 PM Reporting Lab: [facility] [id number] Performing Lab: [facility] [id number] CREATININE 0.9 mg/dL 0.7-1.2 UREA NITROGEN 11 mg/dL 8-26 GLUCOSE 103 mg/dL H 70-100 SODIUM 137 mmol/L 136-145 POTASSIUM 3.4 mmol/L L 3.5-5.1 CHLORIDE 101 mmol/L 98-107 CO2 28 mmol/L 22-29 CALCIUM 9.2 mg/dL 8.4-10.2 MAGNESIUM 1.9 mg/dL 1.6-2.6 ANION GAP 8 mmol/L 5-15 .CREAT EGFR(CKD-EPI ) 90 >60 Vital Signs: All taken on the encounter date This section contains inpatient and outpatient Vital Signs collected on the date of the Encounter. Date/Time Temperature Pulse Blood Pressure Respiratory Rate SP02 Pain Height Weight Body Mass Index Source May 02, 2023 01:12 PM 97 F 102 /min 128/79 mm[Hg] 16 /min 92 % 0 379 lb 45 LIT [place] [facility] Social History: Smoking Status (Most current) and Tobacco Use (All prior to encounter date) This section includes the most current, and the historical, smoking and tobacco- related health factors from the [facility] where the Encounter took place. Current Smoking Status This section includes the most current smoking, or tobacco-related health factor, from the [place] facility where the Encounter took place. Date/Time Current Smoking Status Comment Facil ity Dec 19, 2020 12:07 PM [place] 5 TO < 15 YRS [facility] Tobacco Use History This section includes a history of the smoking, or tobacco-related health factors, that were collected on or before the date of the Encounter. The data comes from the [place] facility where the Encounter took place. Date/Time Smoking Status/Tobacco Use Comment F acility Dec 19, 2020 12:07 PM [place]-TO[place] QUIT 5 TO < 15 YRS [facility] Aug 02, 2015 09:49 AM CURRENT TOBACCO USER [facility] Jun 06, 2014 08:51 AM CURRENT TOBACCO USER [facility] May 04, 2013 09:29 AM CURRENT TOBACCO USER [facility] Apr 24, 2012 07:40 AM CURRENT TOBACCO USER [facility] Advance Directives: All historical and current Section Date Range: From patient's date of to the date document was created. This section includes ALL of a patient's completed or amended [place] Advance and Rescinded Directives. The entries below indicate that a directive exists for the patient, but an actual copy is not included with this document. The data comes from all [facility]. Date Advance Directives Provider Source Jan 02, 2023 STATE-AUTHORIZED PORTABLE ORDERS [facility] Encounter Notes: All associated encounter notes This section contains the clinical notes associated to the Encounter. Date/Time Encounter Note(s) Provider Source Jun 06, 2023 01:20 PM ADDENDUM: LOCAL TITLE: Addendum STANDARD TITLE: ADDENDUM DATE OF NOTE: JUN 06, 2023@13:20:52 ENTRY DATE: JUN 06, 2023@13:20:53 AUTHOR: BRIGITTE BAILEY COSIGNER: URGENCY: STATUS: COMPLETED Susanne, Labs reviewed from 06/05 drawn after starting spironolactone. Labs stable. Continue current medications. Can you please update ? /mateo/ BRIGITTE BAILEY CNP Signed: 06/06/2023 13:22 Receipt Acknowledged By: 06/06/2023 14:13 /es/ SUASNNE CUNNINGHAM RN CHF COUNTER DISH CARRIER --- Original Document --- 05/02/23 CARDIOLOGY CLINIC NOTE: Heart Failure Follow Up History of Present Illness: GILDA APPLE 72y/o male seen at [facility] heart failure clinic today for follow up. He has a history of heart failure with preserved ejection fraction, lymphedema, COPD, hypertension, prediabetes, and BPH. He was hospitalized October 28 to November 06, 2022 with sepsis secondary to cellulitis. He was also retaining fluid, COVID-positive, and had atrial fibrillation with rapid ventricular response (new). He was diuresed about 37 pounds during hospitalization. Echocardiogram in October 29, 2022 showed ejection fraction of 55 to 60% and grade 1 diastolic dysfunction. He had an unsuccessful cardioversion on January 22, 2023. ZIO monitor showed atrial fibrillation with average heart rate of 98 bpm. Ventricular rate was greater than 110 bpm 15%. He was last seen in heart failure clinic on February 28 when metoprolol was increased and he was started on potassium. He was seen by EP WELL SERVICE FLOOR WORKER on March 17 with plan to pursue rhythm control with possible dofetilide initiation. Awaiting review with MD. He has chronic shortness of breath with minimal activity. He states that his inhaler helps with his breathing and coughing. He sleeps in a chair due to chronic right hip pain. He takes furosemide 40 mg daily but takes an extra 40 mg as needed for weight gain, shortness of breath, or edema. He states that he takes extra furosemide a few days weekly. He notes increased urine output and improvement of symptoms with furosemide. He denies lightheadedness or abdominal fullness/bloating. His home weight ranges from 372 to 387 pounds. He struggles to stand on the scale and needs to hold onto a grab bar which may affect accuracy of his weights. He is working on following a low sodium diet. He is unable to exercise due to chronic shortness of breath and right hip pain. He uses a walker at home and is in a motorized wheelchair in clinic today. Review of Systems: All other systems were reviewed and are negative other than in the HPI. Active problems - Computerized Problem List is the source for the followin. Hypertension (SNOMED CT 51463155) 2. Tachycardia - EKG 04/24/[address] acute ST or T wave changes 3. Chronic back pain (SNOMED CT 346639554) - s/p laminectomy L2-4 00 - disability parking permit application completed 03/10/18 with exp date 03/2023 4. Other and unspecified alcohol dependence, unspecified drinking behavior 5. Tobacco use (SNOMED CT 204850297) - quit >25yr use 6. SCREEN - c scope - AAA due 65-75 - DEXA due >70 7. 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 SURGERY Hx - laminectomy L2-4 00 - tonsilectomy - adenoidectomy - R tympanoplasty '78 9. LUNG LESION - incidental on c-xray 04/21/12 [place] @[place] chest 05/01/12 @[place] chest 05/25/12 @[place] lung nodules, new effusion, rib frx - [...] 12. Solitary nodule of lung (SNOMED CT 417585464) 13. Chronic obstructive lung disease - PFT done 08/28/15 @[facility] 14. Degenerative joint disease - CT 06/08/2016; bilateral hips mod/severe 15. Benign localized hyperplasia of prostate 16. Arthritis of right hip 17. Lumbar spondylosis 18. Bilateral foot pain 19. Psoriasis 20. Venous stasis edema of bilateral lower limbs 21. Lipodermatosclerosis 22. Diabetes Mellitus Type 2 (SCT 80041176) 23. Diastolic dysfunction 24. Paroxysmal atrial fibrillation 25. Long-term current use of anticoagulant Allergies: Patient has answered NKA Cardiac Medications: [...] TO TREAT AND/OR PREVENT BLOOD CLOTS 6) BARRIER OINTMENT,CRITIC-AID APPLY AFFECTED AREA ACTIVE TOPICALLY THREE TIMES A WEEK 7) BRIEF,TRANQUILITY AUGUSTIN OVERNITE XXL#2118 USE BRIEF ACTIVE DIRECTED NEEDED 8) CLEANSER,WOUND SKINTEGRITY TOP SPRAY SPRAY TO ACTIVE AFFECTED AREA TOPICALLY DIRECTED FOR WOUND CARE 9) CLEANSING CLOTH ATTENDS PKT USE 1 WASHCLOTH TOPICALLY ACTIVE DIRECTED 10) DICLOFENAC NA 1% TOP GEL APPLY 2 GRAMS TOPICALLY TWO ACTIVE TIMES A DAY NEEDED FOR PAIN -USE DOSE CARD IN BOX TO MEASURE DOSE -MAXIMUM OF 32 GM PER DAY 11) DRESSING,MEPILEX BORDER HEEL 8.7INX9.1IN APPLY 1 ACTIVE DRESSING TOPICALLY THREE TIMES WEEKLY 12) EMPAGLIFLOZIN 25MG TAB TAKE ONE-HALF TABLET BY MOUTH ACTIVE EVERY MORNING FOR HEART FAILURE 13) FLUTICASONE PROP 50MCG 120D NASAL INHL SPRAY 2 SPRAYS ACTIVE IN EACH NOSTRIL EVERY DAY FOR NASAL DRIP 14) HYDROPHILIC (EQV AQUAPHOR) TOP OINT APPLY SMALL ACTIVE AMOUNT TOPICALLY THREE TIMES A WEEK FOR DRY SKIN 15) KERLIX 4.5IN STERILE USE 1 BANDAGE TOPICALLY ACTIVE DIRECTED 16) LORATADINE 10MG TAB TAKE ONE TABLET BY MOUTH EVERY ACTIVE DAY NEEDED FOR ALLERGIES 17) LOSARTAN 50MG TAB TAKE ONE TABLET BY MOUTH EVERY ACTIVE MORNING FOR HEART FAILURE 18) METOPROLOL SUCCINATE 100MG SA TAB TAKE ONE TABLET BY ACTIVE MOUTH TWICE A DAY FOR ATRIAL FIBRILLATION 19) MUPIROCIN 2% OINT APPLY THIN LAYER TOPICALLY TWICE A ACTIVE DAY *INDICATION: INFECTED FOOT ULCER* TO AFFECTED AREA PHARMACY CONFIRMATION #: [id number] APPLY TO OPEN SORES AFTER GENTLY WASHING WITH VASHE SOAKS OR DILUTE VINEGAR SOAKS. APPLY ADAPTIC DRESSING OVER AND WRAP WITH KERLIX 20) OLODATEROL/TIOTROP 2.5MCG/ACTUAT 60D INH INHALE 2 ACTIVE PUFFS BY INHALATION EVERY DAY TO PREVENT TROUBLE BREATHING 21) POTASSIUM CL 20MEQ SA TAB (DISPERSIBLE) TAKE ONE ACTIVE TABLET BY MOUTH EVERY DAY FOR POTASSIUM SUPPLEMENT 22) SEMAGLUTIDE 1MG/0.75ML INJ PEN 3ML INJECT 1MG UNDER ACTIVE THE SKIN EVERY WEEK FOR DIABETES 23) SKIN BARRIER FILM 3ML 3M#9921 APPLY PREP TOPICALLY HOLD THREE TIMES A WEEK 24) SKIN PREP WIPE, S&N #[id number] USE 1 WIPE TOPICALLY ACTIVE THREE TIMES A WEEK REPLACES SKIN BARRIER FILM DUE TO BACKORDER 25) SPONGE,NONWOVEN 4IN X 4IN COVER DELORES#2913 USE 1 SPONGE ACTIVE TOPICALLY DIRECTED 26) TAPE,MICROPORE 1IN 3M #1530-1 CUT AND APPLY TAPE ACTIVE TOPICALLY DIRECTED 27) TAZAROTENE 0.1% TOP CREAM APPLY THIN LAYER TOPICALLY ACTIVE AT BEDTIME TO THE FEET WITH THE 40% UREA CREAM, UNDER OCCLUSION DIRECTED 28) TRAZODONE HCL 50MG TAB TAKE ONE TABLET BY MOUTH AT ACTIVE BEDTIME FOR SLEEP 29) TRIAMCINOLONE ACETONIDE 0.1% OINT APPLY THIN LAYER ACTIVE TOPICALLY TWICE A DAY AVOID FACE,GROIN & ARMPITS *FOR EXTERNAL USE ONLY APPLY TO INTACT SKIN ON LOWER LEGS AFTER DILUTE VINEGAR OR VASHE SOAKS. WRAP WITH KERLIX. 30) UREA 40% CREAM APPLY THIN LAYER TOPICALLY EVERY DAY ACTIVE DIRECTED FOR THICK SKIN 31) VANICREAM TOP CREAM APPLY THIN LAYER TOPICALLY EVERY ACTIVE DAY IDEALLY WITHIN 3 MINUTES AFTER BATH OR SHOWER. TO ALL AREAS OF SKIN FOR MOISTURIZER FOR DRY SKIN 32) VASHE WOUND THERAPY TOP SOLN APPLY DIRECTED ACTIVE TOPICALLY DIRECTED SOAK THE AFFECTED AREA FOR 5 MINUTES WITH THE VASHE-MOISTENED GAUZE, THEN USE THE SAME GAUZE TO GENTLY EXFOLIATE THE WOUND BASE. Pending Outpatient Medications Status 1) FUROSEMIDE 40MG TAB TAKE TWO TABLETS BY MOUTH EVERY PENDING MORNING FOR WEIGHT GAIN OR WORSENING HEART FAILURE SYMPTOMS Active Non-VA Medications Status 1) Non-VA KETOCONAZOLE SHAMPOO 2%SHAMPOO TOPICALLY ACTIVE 2) Non-VA LIDOCAINE 5% PATCH 1 PATCH TOPICALLY ACTIVE 35 Total Medications MEDICATION RECONCILIATION: The medication list above was reviewed with the patient/surrogate and if changes are indicated they are listed above. Vitals: Temperature: 97 F [36.1 C] (05/02/2023 13:12) Pulse: 102 (05/02/2023 13:12) Respirations: 16 (05/02/2023 13:12) Blood Pressure: 128/79 (05/02/2023 13:12) Pain: 0 (05/02/2023 13:12) RR: unlabored at rest O2 Sat:92% (05/02/2023 13:12) Weight: 379 lb [171.91 kg] (05/02/2023 13:12) Body Mass Index: 45.0 Measurement DT WEIGHT LB(KG)[BMI] 05/02/2023 13:12 379(171.91)[45*] 04/30/2023 14:29 388.3(176.13)[46*] 04/14/2023 14:00 372(168.74)[44*] PHYSICAL EXAM: General: Alert, cooperative, alert and oriented x3, in no acute distress HEENT: Atraumatic and normocephalic LUNGS: Lung sounds clear, no wheezing, normal expansion, respirations unlabored HEART: Irregular, S1, S2, no murmur, rub or gallop ABDOMEN: Obese, soft, nontender, nondistended, bowel sounds present EXTREMITIES: warm, edema bilateral lower legs, pulses present bilaterally PSYCHOLOGICAL: Normal affect LABS: ---- SODIUM 137 (05/02/23) POTASSIUM 3.4 L (05/02/23) CHLORIDE 101 (05/02/23) CO2 28 (05/02/23) GLUCOSE 103 H (05/02/23) UREA NITROGEN 11 (05/02/23) CREATININE 0.9 (05/02/23) ANION GAP: EGFR (02/21) 08/02/21 @ 1412 83 CREATININE EGFR (CKD-EPI) 05/02/23 @ 1255 90 MAGNESIUM 1.9 (05/02/23) CALCIUM 9.2 (05/02/23) PO4____ CREATININE 0.9 PLASMA (05/02/23 12:55) 0.9 PLASMA (03/10/23 13:23) 1.2 PLASMA (02/28/23 13:11) SLT - Lab Tests Selected Collection DT Specimen Test Name Result Units Ref Range 12/27/2022 13:33 PLASMA BNP 103 H pg/mL Ref: <=99 11/27/2022 10:53 PLASMA BNP 92 pg/mL Ref: <=99 11/04/2022 06:14 PLASMA BNP 24 pg/mL Ref: <=99 10/28/2022 23:06 PLASMA BNP 137 H pg/mL Ref: <=99 10/28/2022 16:17 PLASMA BNP 129 H pg/mL Ref: <=99 06/04/2022 12:45 PLASMA BNP 47 pg/mL Ref: <=99 TSH 1.00 (11/06/22) IRON 78 (11/27/22) TRANSFERRIN 212 (11/27/22) TIBC,CALCULATED 265 (11/27/22) IRON SATURATION 29 (11/27/22) FERRITIN 372.2 H (11/27/22) Liver Panel: ALBUMIN 3.7 (11/27/22) ALK PHOSPHATASE 96 (11/27/22) SGPT 21 (11/27/22) SGOT 14 (11/27/22) BILIRUBIN, TOTAL 0.5 (11/27/22) No data available for: GAMMA GTP LIPASE____ AMYLASE,TOTAL____ Collection DT Spec WBC HGB HCT PLT MCV NEUT LYMPHS 01/22/2023 10:52 BLOOD 9.21 15.1 46.7 262 94.3 11/27/2022 10:53 BLOOD 8.94 14.2 43.3 249 94.1 11/06/2022 05:30 BLOOD 10.75 14.4 43.4 310 93.3 Today's Labs: GLUCOSE: 103 H UREA NITROGEN: 11 CREATININE: 0.9 SODIUM: 137 POTASSIUM: 3.4 L CHLORIDE: 101 CO2: 28 CALCIUM: 9.2 MAGNESIUM: 1.9 ANION GAP: 8 CREATININE EGFR (CKD-EPI): 90 GLUCOSE: 103 H UREA NITROGEN: 11 CREATININE: 0.9 SODIUM: 137 POTASSIUM: 3.4 L CHLORIDE: 101 CO2: 28 CALCIUM: 9.2 MAGNESIUM: 1.9 ANION GAP: 8 CREATININE EGFR (CKD-EPI): 90 Assessment/Plan: # Heart failure: Heart failure with preserved ejection fraction. He has no symptoms of acute fluid retention on exam today. He admits to increased use of furosemide. Renal function is stable on increased furosemide. - EF: 55 to 60% - Etiology: Hypertension, obesity, atrial fibrillation with rapid ventricular response - Stage: C - NYHA class: III -- ACEi/ARB/ARNI: Losartan 50 mg daily -- BB: Metoprolol succinate to 100 mg twice daily -- MRA: Not currently prescribed -- SGLT-2: Empagliflozin 12.5 mg daily -- Diuretic: Increase furosemide to 80 mg daily - Medications Optimized: working towards optimization (consider spironolactone) - Last ischemic workup: Stress test March 25, 2023 negative for ischemia - Sleep medicine evaluation: He snores loudly and thinks that he has sleep apnea but declines evaluation since he does not want to treat - Device: Not indicated - Telehealth: Yes, data reviewed today - Last heart failure hospitalization: October 28 to November 06, 2022 - Cardiac rehab: no - Iron studies: IRON 78 (11/27/22) TRANSFERRIN 212 (11/27/22) TIBC,CALCULATED 265 (11/27/22) IRON SATURATION 29 (11/27/22) #Persistent atrial fibrillation: He had an unsuccessful cardioversion on January 22, 2023. ZIO monitor showed atrial fibrillation with average heart rate of 98 bpm. Ventricular rate was greater than 110 bpm 15%. 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 #Hypertension: Average home blood pressure 119/78. Summary of Plan: - Increase furosemide to 80 mg daily - Discuss meal options with dietitian Follow Up: --------- - Follow up in heart failure clinic in 2 months. Assessment and plan discussed with in full detail with all questions answered. Total time spent in patient care was 40 minutes including chart review, diagnostic/testing review, patient interview/examination, counseling and documentation. Thank you for allowing me to participate in the care of GILDA APPLE. Please contact me with any questions or concerns: Brigitte Bailey NP [facility] Heart Failure Clinic, Department of Cardiology HF buildings and grounds director [phone], Option 3 /mateo/ BRIGITTE BAILEY CNP Signed: 05/02/2023 16:01 05/02/2023 ADDENDUM STATUS: CAIN Skinner, Can you please call and help coordinate BMP in 1 week? I increased furosemide today and K 3.4 so I want to recheck labs sooner than my 2 month appointment. /mateo/ BRIGITTE BAILEY CNP Signed: 05/02/2023 16:03 Receipt Acknowledged By: 05/06/2023 09:44 /mateo/ SUSANNE CUNNINGHAM RN CHF COUNTER DISH CARRIER 05/02/2023 ADDENDUM STATUS: COMPLETED Delia, What is the plan for rhythm control? You wrote in your note on 03/17 that you would review echo and LVH and make decision on Dofetilide. HRs are still 90s-low 100s. /mateo/ BRIGITTE BAILEY CNP Signed: 05/02/2023 16:05 Receipt Acknowledged By: * AWAITING SIGNATURE * DELIA HOLGUIN 05/19/2023 ADDENDUM STATUS: COMPLETED Susanne, Labs from 05/16 reviewed. I checked labs after increasing lasix on 05/02. Renal function stable. As long as he is not having any side effects on higher dose of lasix, he can continue. His potassium remains slightly low at 3.4. He is on low dose potassium but would benefit from spironolactone for heart failure as well as maintaining normal potassium levels. Please have him start spironolactone 25 mg daily and BMP 1 week later. /mateo/ BRIGITTE BAILEY CNP Signed: 05/19/2023 14:33 Receipt Acknowledged By: 05/20/2023 09:16 /mateo/ SUSANNE CUNNINGHAM RN CHF COUNTER DISH CARRIER 05/20/2023 ADDENDUM STATUS: COMPLETED Mr. Apple has been feeling a little better the past week, noticing less shortness of breath, decreased cough, and less swelling in his feet. His weight is down a few pounds, staying between 368-372# on lasix 80mg daily. Instructed on starting spironolactone 25mg daily with lab follow up in 1 week. Pt verbalizes understanding. He will call with any new or worsening symmptoms. /mateo/ SUSANNE CUNNINGHAM RN CHF COUNTER DISH CARRIER Signed: 05/20/2023 09:28 Receipt Acknowledged By: 05/20/2023 10:00 /nacho BAILEY RN CASE MANAGER 06/06/2023 ADDENDUM STATUS: COMPLETED Called and updated pt on labs. BMP wnl and plan is to continue current meds. Pt verbalized understanding. /mateo/ SUSANNE CUNNINGHAM RN CHF COUNTER DISH CARRIER Signed: 06/06/2023 14:14 BRIGITTE BAILEY [facility] May 20, 2023 09:24 AM ADDENDUM: LOCAL TITLE: Addendum STANDARD TITLE: ADDENDUM DATE OF NOTE: MAY 20, 2023@09:24:28 ENTRY DATE: MAY 20, 2023@09:24:29 AUTHOR: SUSANNE CUNNINGHAM EXP COSIGNER: URGENCY: STATUS: COMPLETED Mr. Apple has been feeling a little better the past week, noticing less shortness of breath, decreased cough, and less swelling in his feet. His weight is down a few pounds, staying between 368-372# on lasix 80mg daily. Instructed on starting spironolactone 25mg daily with lab follow up in 1 week. Pt verbalizes understanding. He will call with any new or worsening symmptoms. /mateo/ SUSANNE CUNNINGHAM RN CHF COUNTER DISH CARRIER Signed: 05/20/2023 09:28 Receipt Acknowledged By: 05/20/2023 10:00 /mateo/ BRIGITTE BAILEY RN CASE MANAGER --- Original Document --- 05/02/23 CARDIOLOGY CLINIC NOTE: Heart Failure Follow Up History of Present Illness: GILDA APPLE 72y/o male seen at [facility] heart failure clinic today for follow up. He has a history of heart failure with preserved ejection fraction, lymphedema, COPD, hypertension, prediabetes, and BPH. He was hospitalized October 28 to November 06, 2022 with sepsis secondary to cellulitis. He was also retaining fluid, COVID-positive, and had atrial fibrillation with rapid ventricular response (new). He was diuresed about 37 pounds during hospitalization. Echocardiogram in October 29, 2022 showed ejection fraction of 55 to 60% and grade 1 diastolic dysfunction. He had an unsuccessful cardioversion on January 22, 2023. ZIO monitor showed atrial fibrillation with average heart rate of 98 bpm. Ventricular rate was greater than 110 bpm 15%. He was last seen in heart failure clinic on February 28 when metoprolol was increased and he was started on potassium. He was seen by EP WE[employer] SERVICE FLOOR WORKER on March 17 with plan to pursue rhythm control with possible dofetilide initiation. Awaiting review with . He has chronic shortness of breath with minimal activity. He states that his inhaler helps with his breathing and coughing. He sleeps in a chair due to chronic right hip pain. He takes furosemide 40 mg daily but takes an extra 40 mg as needed for weight gain, shortness of breath, or edema. He states that he takes extra furosemide a few days weekly. He notes increased urine output and improvement of symptoms with furosemide. He denies lightheadedness or abdominal fullness/bloating. His home weight ranges from 372 to 387 pounds. He struggles to stand on the scale and needs to hold onto a grab bar which may affect accuracy of his weights. He is working on following a low sodium diet. He is unable to exercise due to chronic shortness of breath and right hip pain. He uses a walker at home and is in a motorized wheelchair in clinic today. Review of Systems: All other systems were reviewed and are negative other than in the HPI. Active problems - Computerized Problem List is the source for the followin. Hypertension (SNOMED CT 38529848) 2. Tachycardia - EKG 04/24/[address] acute [address] or T wave changes 3. Chronic back pain (SNOMED CT 109037461) - s/p laminectomy L2-4 '00 - disability parking permit application completed 03/10/18 with exp date 03/2023 4. Other and unspecified alcohol dependence, unspecified drinking behavior 5. Tobacco use (SNOMED CT 286603391) - quit '08 >25yr use 6. SCREEN - c scope - AAA due 65-75 - DEXA due >70 7. 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 SURGERY Hx - laminectomy L2-4 '00 - tonsilectomy - adenoidectomy - R tympanoplasty 9. LUNG LESION - incidental on c-xray 04/21/12 [place] @[place] chest 05/01/12 @[place] chest 05/25/12 [place] lung nodules, new effusion, rib frx - [...] 12. Solitary nodule of lung (SNOMED CT 089669018) 13. Chronic obstructive lung disease - PFT done 08/28/15 @[facility] 14. Degenerative joint disease - CT 06/08/2016; bilateral hips mod/severe 15. Benign localized hyperplasia of prostate 16. Arthritis of right hip 17. Lumbar spondylosis 18. Bilateral foot pain 19. Psoriasis 20. Venous stasis edema of bilateral lower limbs 21. Lipodermatosclerosis 22. Diabetes Mellitus Type 2 ([facility] [id number]) 23. Diastolic dysfunction 24. Paroxysmal atrial fibrillation 25. Long-term current use of anticoagulant Allergies: Patient has answered NKA Cardiac Medications: [...] TO TREAT AND/OR PREVENT BLOOD CLOTS 6) BARRIER OINTMENT,CRITIC-AID APPLY AFFECTED AREA ACTIVE TOPICALLY THREE TIMES A WEEK 7) BRIEF,TRANQUILITY AUGUSTIN OVERNITE XXL#2118 USE BRIEF ACTIVE DIRECTED NEEDED 8) CLEANSER,WOUND SKINTEGRITY TOP SPRAY SPRAY TO ACTIVE AFFECTED AREA TOPICALLY DIRECTED FOR WOUND CARE 9) CLEANSING CLOTH ATTENDS PKT USE 1 WASHCLOTH TOPICALLY ACTIVE DIRECTED 10) DICLOFENAC NA 1% TOP GEL APPLY 2 GRAMS TOPICALLY TWO ACTIVE TIMES A DAY NEEDED FOR PAIN -USE DOSE CARD IN BOX TO MEASURE DOSE -MAXIMUM OF 32 GM PER DAY 11) DRESSING,MEPILEX BORDER HEEL 8.7INX9.1IN APPLY 1 ACTIVE DRESSING TOPICALLY THREE TIMES WEEKLY 12) EMPAGLIFLOZIN 25MG TAB TAKE ONE-HALF TABLET BY MOUTH ACTIVE EVERY MORNING FOR HEART FAILURE 13) FLUTICASONE PROP 50MCG 120D NASAL INHL SPRAY 2 SPRAYS ACTIVE IN EACH NOSTRIL EVERY DAY FOR NASAL DRIP 14) HYDROPHILIC (EQV AQUAPHOR) TOP OINT APPLY SMALL ACTIVE AMOUNT TOPICALLY THREE TIMES A WEEK FOR DRY SKIN 15) KERLIX 4.5IN STERILE USE 1 BANDAGE TOPICALLY ACTIVE DIRECTED 16) LORATADINE 10MG TAB TAKE ONE TABLET BY MOUTH EVERY ACTIVE DAY NEEDED FOR ALLERGIES 17) LOSARTAN 50MG TAB TAKE ONE TABLET BY MOUTH EVERY ACTIVE MORNING FOR HEART FAILURE 18) METOPROLOL SUCCINATE 100MG SA TAB TAKE ONE TABLET BY ACTIVE MOUTH TWICE A DAY FOR ATRIAL FIBRILLATION 19) MUPIROCIN 2% OINT APPLY THIN LAYER TOPICALLY TWICE A ACTIVE DAY *INDICATION: INFECTED FOOT ULCER* TO AFFECTED AREA PHARMACY CONFIRMATION #: [id number] APPLY TO OPEN SORES AFTER GENTLY WASHING WITH VASHE SOAKS OR DILUTE VINEGAR SOAKS. APPLY ADAPTIC DRESSING OVER AND WRAP WITH KERLIX 20) OLODATEROL/TIOTROP 2.5MCG/ACTUAT 60D INH INHALE 2 ACTIVE PUFFS BY INHALATION EVERY DAY TO PREVENT TROUBLE BREATHING 21) POTASSIUM CL 20MEQ SA TAB (DISPERSIBLE) TAKE ONE ACTIVE TABLET BY MOUTH EVERY DAY FOR POTASSIUM SUPPLEMENT 22) SEMAGLUTIDE 1MG/0.75ML INJ PEN 3ML INJECT 1MG UNDER ACTIVE THE SKIN EVERY WEEK FOR DIABETES 23) SKIN BARRIER FILM 3ML 3M#2365 APPLY PREP TOPICALLY HOLD THREE TIMES A WEEK 24) SKIN PREP WIPE, S&N #[id number] USE 1 WIPE TOPICALLY ACTIVE THREE TIMES A WEEK REPLACES SKIN BARRIER FILM DUE TO BACKORDER 25) SPONGE,NONWOVEN 4IN X 4IN COVER DELORES#9523 USE 1 SPONGE ACTIVE TOPICALLY DIRECTED 26) TAPE,MICROPORE 1IN 3M #1530-1 CUT AND APPLY TAPE ACTIVE TOPICALLY DIRECTED 27) TAZAROTENE 0.1% TOP CREAM APPLY THIN LAYER TOPICALLY ACTIVE AT BEDTIME TO THE FEET WITH THE 40% UREA CREAM, UNDER OCCLUSION DIRECTED 28) TRAZODONE HCL 50MG TAB TAKE ONE TABLET BY MOUTH AT ACTIVE BEDTIME FOR SLEEP 29) TRIAMCINOLONE ACETONIDE 0.1% OINT APPLY THIN LAYER ACTIVE TOPICALLY TWICE A DAY AVOID FACE,GROIN & ARMPITS *FOR EXTERNAL USE ONLY APPLY TO INTACT SKIN ON LOWER LEGS AFTER DILUTE VINEGAR OR VASHE SOAKS. WRAP WITH KERLIX. 30) UREA 40% CREAM APPLY THIN LAYER TOPICALLY EVERY DAY ACTIVE DIRECTED FOR THICK SKIN 31) VANICREAM TOP CREAM APPLY THIN LAYER TOPICALLY EVERY ACTIVE DAY IDEALLY WITHIN 3 MINUTES AFTER BATH OR SHOWER. TO ALL AREAS OF SKIN FOR MOISTURIZER FOR DRY SKIN 32) VASHE WOUND THERAPY TOP SOLN APPLY DIRECTED ACTIVE TOPICALLY DIRECTED SOAK THE AFFECTED AREA FOR 5 MINUTES WITH THE VASHE-MOISTENED GAUZE, THEN USE THE SAME GAUZE TO GENTLY EXFOLIATE THE WOUND BASE. Pending Outpatient Medications Status 1) FUROSEMIDE 40MG TAB TAKE TWO TABLETS BY MOUTH EVERY PENDING MORNING FOR WEIGHT GAIN OR WORSENING HEART FAILURE SYMPTOMS Active Non-VA Medications Status 1) Non-VA KETOCONAZOLE SHAMPOO 2%SHAMPOO TOPICALLY ACTIVE 2) Non-VA LIDOCAINE 5% PATCH 1 PATCH TOPICALLY ACTIVE 35 Total Medications MEDICATION RECONCILIATION: The medication list above was reviewed with the patient/surrogate and if changes are indicated they are listed above. Vitals: Temperature: 97 F [36.1 C] (05/02/2023 13:12) Pulse: 102 (05/02/2023 13:12) Respirations: 16 (05/02/2023 13:12) Blood Pressure: 128/79 (05/02/2023 13:12) Pain: 0 (05/02/2023 13:12) RR: unlabored at rest O2 Sat:92% (05/02/2023 13:12) Weight: 379 lb [171.91 kg] (05/02/2023 13:12) Body Mass Index: 45.0 Measurement DT WEIGHT LB(KG)[BMI] 05/02/2023 13:12 379(171.91)[45*] 04/30/2023 14:29 388.3(176.13)[46*] 04/14/2023 14:00 372(168.74)[44*] PHYSICAL EXAM: General: Alert, cooperative, alert and oriented x3, in no acute distress HEENT: Atraumatic and normocephalic LUNGS: Lung sounds clear, no wheezing, normal expansion, respirations unlabored HEART: Irregular, S1, S2, no murmur, rub or gallop ABDOMEN: Obese, soft, nontender, nondistended, bowel sounds present EXTREMITIES: warm, edema bilateral lower legs, pulses present bilaterally PSYCHOLOGICAL: Normal affect LABS: ---- SODIUM 137 (05/02/23) POTASSIUM 3.4 L (05/02/23) CHLORIDE 101 (05/02/23) CO2 28 (05/02/23) GLUCOSE 103 H (05/02/23) UREA NITROGEN 11 (05/02/23) CREATININE 0.9 (05/02/23) ANION GAP: EGFR (02/21) 08/02/21 @ 1412 83 CREATININE EGFR (CKD-EPI) 05/02/23 @ 1255 90 MAGNESIUM 1.9 (05/02/23) CALCIUM 9.2 (05/02/23) PO4____ CREATININE 0.9 PLASMA (05/02/23 12:55) 0.9 PLASMA (03/10/23 13:23) 1.2 PLASMA (02/28/23 13:11) SLT - Lab Tests Selected Collection DT Specimen Test Name Result Units Ref Range 12/27/2022 13:33 PLASMA BNP 103 H pg/mL Ref: <=99 11/27/2022 10:53 PLASMA BNP 92 pg/mL Ref: <=99 11/04/2022 06:14 PLASMA BNP 24 pg/mL Ref: <=99 10/28/2022 23:06 PLASMA BNP 137 H pg/mL Ref: <=99 10/28/2022 16:17 PLASMA BNP 129 H pg/mL Ref: <=99 06/04/2022 12:45 PLASMA BNP 47 pg/mL Ref: <=99 TSH 1.00 (11/06/22) IRON 78 (11/27/22) TRANSFERRIN 212 (11/27/22) TIBC,CALCULATED 265 (11/27/22) IRON SATURATION 29 (11/27/22) FERRITIN 372.2 H (11/27/22) Liver Panel: ALBUMIN 3.7 (11/27/22) ALK PHOSPHATASE 96 (11/27/22) SGPT 21 (11/27/22) SGOT 14 (11/27/22) BILIRUBIN, TOTAL 0.5 (11/27/22) No data available for: GAMMA GTP LIPASE____ AMYLASE,TOTAL____ Collection DT Spec WBC HGB HCT PLT MCV NEUT LYMPHS 01/22/2023 10:52 BLOOD 9.21 15.1 46.7 262 94.3 11/27/2022 10:53 BLOOD 8.94 14.2 43.3 249 94.1 11/06/2022 05:30 BLOOD 10.75 14.4 43.4 310 93.3 Today's Labs: GLUCOSE: 103 H UREA NITROGEN: 11 CREATININE: 0.9 SODIUM: 137 POTASSIUM: 3.4 L CHLORIDE: 101 CO2: 28 CALCIUM: 9.2 MAGNESIUM: 1.9 ANION GAP: 8 CREATININE EGFR (CKD-EPI): 90 GLUCOSE: 103 H UREA NITROGEN: 11 CREATININE: 0.9 SODIUM: 137 POTASSIUM: 3.4 L CHLORIDE: 101 CO2: 28 CALCIUM: 9.2 MAGNESIUM: 1.9 ANION GAP: 8 CREATININE EGFR (CKD-EPI): 90 Assessment/Plan: # Heart failure: Heart failure with preserved ejection fraction. He has no symptoms of acute fluid retention on exam today. He admits to increased use of furosemide. Renal function is stable on increased furosemide. - EF: 55 to 60% - Etiology: Hypertension, obesity, atrial fibrillation with rapid ventricular response - Stage: C - NYHA class: III -- ACEi/ARB/ARNI: Losartan 50 mg daily -- BB: Metoprolol succinate to 100 mg twice daily -- MRA: Not currently prescribed -- SGLT-2: Empagliflozin 12.5 mg daily -- Diuretic: Increase furosemide to 80 mg daily - Medications Optimized: working towards optimization (consider spironolactone) - Last ischemic workup: Stress test March 25, 2023 negative for ischemia - Sleep medicine evaluation: He snores loudly and thinks that he has sleep apnea but declines evaluation since he does not want to treat - Device: Not indicated - Telehealth: Yes, data reviewed today - Last heart failure hospitalization: October 28 to November 06, 2022 - Cardiac rehab: no - Iron studies: IRON 78 (11/27/22) TRANSFERRIN 212 (11/27/22) TIBC,CALCULATED 265 (11/27/22) IRON SATURATION 29 (11/27/22) #Persistent atrial fibrillation: He had an unsuccessful cardioversion on January 22, 2023. ZIO monitor showed atrial fibrillation with average heart rate of 98 bpm. Ventricular rate was greater than 110 bpm 15%. 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 #Hypertension: Average home blood pressure 119/78. Summary of Plan: - Increase furosemide to 80 mg daily - Discuss meal options with dietitian Follow Up: --------- - Follow up in heart failure clinic in 2 months. Assessment and plan discussed with in full detail with all questions answered. Total time spent in patient care was 40 minutes including chart review, diagnostic/testing review, patient interview/examination, counseling and documentation. Thank you for allowing me to participate in the care of GILDA APPLE. Please contact me with any questions or concerns: Brigitte Bailey NP [facility] Heart Failure Clinic, Department of Cardiology HF buildings and grounds director [phone], Option 3 /es/ BRIGITTE BAILEY RN CASE MANAGER Signed: 05/02/2023 16:01 05/02/2023 ADDENDUM STATUS: COMPLETED Susanne, Can you please call and help coordinate BMP in 1 week? I increased furosemide today and K 3.4 so I want to recheck labs sooner than my 2 month appointment. /mateo/ BRIGITTE BAILEY RN CASE MANAGER Signed: 05/02/2023 16:03 Receipt Acknowledged By: 05/06/2023 09:44 /mateo/ SUSANNE CUNNINGHAM RN CHF COUNTER DISH CARRIER 05/02/2023 ADDENDUM STATUS: COMPLETED Delia, What is the plan for rhythm control? You wrote in your note on 03/17 that you would review echo and LVH and make decision on Dofetilide. HRs are still 90s-low 100s. /mateo/ BRIGITTE BAILEY RN CASE MANAGER Signed: 05/02/2023 16:05 Receipt Acknowledged By: * AWAITING SIGNATURE * DELIA HOLGUIN 05/19/2023 ADDENDUM STATUS: COMPLETED Susanne, Labs from 05/16 reviewed. I checked labs after increasing lasix on 05/02. Renal function stable. As long as he is not having any side effects on higher dose of lasix, he can continue. His potassium remains slightly low at 3.4. He is on low dose potassium but would benefit from spironolactone for heart failure as well as maintaining normal potassium levels. Please have him start spironolactone 25 mg daily and BMP 1 week later. /mateo/ BRIGITTE BAILEY RN CASE MANAGER Signed: 05/19/2023 14:33 Receipt Acknowledged By: 05/20/2023 09:16 /mateo/ SUSANNE CUNNINGHAM RN CHF COUNTER DISH CARRIER SUSANNE CUNNINGHAM [facility] May 19, 2023 02:29 PM ADDENDUM: LOCAL TITLE: Addendum STANDARD TITLE: ADDENDUM DATE OF NOTE: MAY 19, 2023@14:29:42 ENTRY DATE: MAY 19, 2023@14:29:43 AUTHOR: BRIGITTE BAILEY EXP COSIGNER: URGENCY: STATUS: COMPLETED Susanne, Labs from 05/16 reviewed. I checked labs after increasing lasix on 05/02. Renal function stable. As long as he is not having any side effects on higher dose of lasix, he can continue. His potassium remains slightly low at 3.4. He is on low dose potassium but would benefit from spironolactone for heart failure as well as maintaining normal potassium levels. Please have him start spironolactone 25 mg daily and BMP 1 week later. /mateo/ BRIGITTE BAILEY CNP Signed: 05/19/2023 14:33 Receipt Acknowledged By: 05/20/2023 09:16 /es/ SUSANNE CUNNINGHAM RN CHF COUNTER DISH CARRIER --- Original Document --- 05/02/23 CARDIOLOGY CLINIC NOTE: Heart Failure Follow Up History of Present Illness: GILDA APPLE 72y/o male seen at [facility] heart failure clinic today for follow up. He has a history of heart failure with preserved ejection fraction, lymphedema, COPD, hypertension, prediabetes, and BPH. He was hospitalized October 28 to November 06, 2022 with sepsis secondary to cellulitis. He was also retaining fluid, COVID-positive, and had atrial fibrillation with rapid ventricular response (new). He was diuresed about 37 pounds during hospitalization. Echocardiogram in October 29, 2022 showed ejection fraction of 55 to 60% and grade 1 diastolic dysfunction. He had an unsuccessful cardioversion on January 22, 2023. ZIO monitor showed atrial fibrillation with average heart rate of 98 bpm. Ventricular rate was greater than 110 bpm 15%. He was last seen in heart failure clinic on February 28 when metoprolol was increased and he was started on potassium. He was seen by EP [employer] FLOOR WORKER on March 17 with plan to pursue rhythm control with possible dofetilide initiation. Awaiting review with MD. He has chronic shortness of breath with minimal activity. He states that his inhaler helps with his breathing and coughing. He sleeps in a chair due to chronic right hip pain. He takes furosemide 40 mg daily but takes an extra 40 mg as needed for weight gain, shortness of breath, or edema. He states that he takes extra furosemide a few days weekly. He notes increased urine output and improvement of symptoms with furosemide. He denies lightheadedness or abdominal fullness/bloating. His home weight ranges from 372 to 387 pounds. He struggles to stand on the scale and needs to hold onto a grab bar which may affect accuracy of his weights. He is working on following a low sodium diet. He is unable to exercise due to chronic shortness of breath and right hip pain. He uses a walker at home and is in a motorized wheelchair in clinic today. Review of Systems: All other systems were reviewed and are negative other than in the HPI. Active problems - Computerized Problem List is the source for the followin. Hypertension (SNOMED CT 52743056) 2. Tachycardia - EKG 04/24/[address] or T wave changes 3. Chronic back pain (SNOMED CT 808357964) - s/p laminectomy L2-4 00 - disability parking permit application completed 03/10/18 with exp date 03/2023 4. Other and unspecified alcohol dependence, unspecified drinking behavior 5. Tobacco use (SNOMED CT 795910465) - quit ' >25yr use 6. SCREEN - c scope - AAA due 65-75 - DEXA due >70 7. 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 SURGERY Hx - laminectomy L2-4 00 - tonsilectomy - adenoidectomy - R tympanoplasty '78 9. LUNG LESION - incidental [place] 05/[place] 05/25/12 [place], new effusion, rib frx - [...] 12. Solitary nodule of lung (SNOMED CT 771516730) 13. Chronic obstructive lung disease - PFT done 08/28/15 @[facility] 14. Degenerative joint disease - CT 06/08/2016; bilateral hips mod/severe 15. Benign localized hyperplasia of prostate 16. Arthritis of right hip 17. Lumbar spondylosis 18. Bilateral foot pain 19. Psoriasis 20. Venous stasis edema of bilateral lower limbs 21. Lipodermatosclerosis 22. Diabetes Mellitus Type 2 ([facility] [id number]) 23. Diastolic dysfunction 24. Paroxysmal atrial fibrillation 25. Long-term current use of anticoagulant Allergies: Patient has answered NKA Cardiac Medications: [...] TO TREAT AND/OR PREVENT BLOOD CLOTS 6) BARRIER OINTMENT,CRITIC-AID APPLY AFFECTED AREA ACTIVE TOPICALLY THREE TIMES A WEEK 7) BRIEF,TRANQUILITY AUGUSTIN OVERNITE XXL#2118 USE BRIEF ACTIVE DIRECTED NEEDED 8) CLEANSER,WOUND SKINTEGRITY TOP SPRAY SPRAY TO ACTIVE AFFECTED AREA TOPICALLY DIRECTED FOR WOUND CARE 9) CLEANSING CLOTH ATTENDS PKT USE 1 WASHCLOTH TOPICALLY ACTIVE DIRECTED 10) DICLOFENAC NA 1% TOP GEL APPLY 2 GRAMS TOPICALLY TWO ACTIVE TIMES A DAY NEEDED FOR PAIN -USE DOSE CARD IN BOX TO MEASURE DOSE -MAXIMUM OF 32 GM PER DAY 11) DRESSING,MEPILEX BORDER HEEL 8.7INX9.1IN APPLY 1 ACTIVE DRESSING TOPICALLY THREE TIMES WEEKLY 12) EMPAGLIFLOZIN 25MG TAB TAKE ONE-HALF TABLET BY MOUTH ACTIVE EVERY MORNING FOR HEART FAILURE 13) FLUTICASONE PROP 50MCG 120D NASAL INHL SPRAY 2 SPRAYS ACTIVE IN EACH NOSTRIL EVERY DAY FOR NASAL DRIP 14) HYDROPHILIC (EQV AQUAPHOR) TOP OINT APPLY SMALL ACTIVE AMOUNT TOPICALLY THREE TIMES A WEEK FOR DRY SKIN 15) KERLIX 4.5IN STERILE USE 1 BANDAGE TOPICALLY ACTIVE DIRECTED 16) LORATADINE 10MG TAB TAKE ONE TABLET BY MOUTH EVERY ACTIVE DAY NEEDED FOR ALLERGIES 17) LOSARTAN 50MG TAB TAKE ONE TABLET BY MOUTH EVERY ACTIVE MORNING FOR HEART FAILURE 18) METOPROLOL SUCCINATE 100MG SA TAB TAKE ONE TABLET BY ACTIVE MOUTH TWICE A DAY FOR ATRIAL FIBRILLATION 19) MUPIROCIN 2% OINT APPLY THIN LAYER TOPICALLY TWICE A ACTIVE DAY *INDICATION: INFECTED FOOT ULCER* TO AFFECTED AREA PHARMACY CONFIRMATION #: [id number] APPLY TO OPEN SORES AFTER GENTLY WASHING WITH VASHE SOAKS OR DILUTE VINEGAR SOAKS. APPLY ADAPTIC DRESSING OVER AND WRAP WITH KERLIX 20) OLODATEROL/TIOTROP 2.5MCG/ACTUAT 60D INH INHALE 2 ACTIVE PUFFS BY INHALATION EVERY DAY TO PREVENT TROUBLE BREATHING 21) POTASSIUM CL 20MEQ SA TAB (DISPERSIBLE) TAKE ONE ACTIVE TABLET BY MOUTH EVERY DAY FOR POTASSIUM SUPPLEMENT 22) SEMAGLUTIDE 1MG/0.75ML INJ PEN 3ML INJECT 1MG UNDER ACTIVE THE SKIN EVERY WEEK FOR DIABETES 23) SKIN BARRIER FILM 3ML #9130 APPLY PREP TOPICALLY HOLD THREE TIMES A WEEK 24) SKIN PREP WIPE, S&N #[id number] USE 1 WIPE TOPICALLY ACTIVE THREE TIMES A WEEK REPLACES SKIN BARRIER FILM DUE TO BACKORDER 25) SPONGE,NONWOVEN 4IN X 4IN COVER DELORES#2913 USE 1 SPONGE ACTIVE TOPICALLY DIRECTED 26) TAPE,MICROPORE 1IN #1530-1 CUT AND APPLY TAPE ACTIVE TOPICALLY DIRECTED 27) TAZAROTENE 0.1% TOP CREAM APPLY THIN LAYER TOPICALLY ACTIVE AT BEDTIME TO THE FEET WITH THE 40% UREA CREAM, UNDER OCCLUSION DIRECTED 28) TRAZODONE HCL 50MG TAB TAKE ONE TABLET BY MOUTH AT ACTIVE BEDTIME FOR SLEEP 29) TRIAMCINOLONE ACETONIDE 0.1% OINT APPLY THIN LAYER ACTIVE TOPICALLY TWICE A DAY AVOID FACE,GROIN & ARMPITS *FOR EXTERNAL USE ONLY APPLY TO INTACT SKIN ON LOWER LEGS AFTER DILUTE VINEGAR OR VASHE SOAKS. WRAP WITH KERLIX. 30) UREA 40% CREAM APPLY THIN LAYER TOPICALLY EVERY DAY ACTIVE DIRECTED FOR THICK SKIN 31) VANICREAM TOP CREAM APPLY THIN LAYER TOPICALLY EVERY ACTIVE DAY IDEALLY WITHIN 3 MINUTES AFTER BATH OR SHOWER. TO ALL AREAS OF SKIN FOR MOISTURIZER FOR DRY SKIN 32) VASHE WOUND THERAPY TOP SOLN APPLY DIRECTED ACTIVE TOPICALLY DIRECTED SOAK THE AFFECTED AREA FOR 5 MINUTES WITH THE VASHE-MOISTENED GAUZE, THEN USE THE SAME GAUZE TO GENTLY EXFOLIATE THE WOUND BASE. Pending Outpatient Medications Status 1) FUROSEMIDE 40MG TAB TAKE TWO TABLETS BY MOUTH EVERY PENDING MORNING FOR WEIGHT GAIN OR WORSENING HEART FAILURE SYMPTOMS Active Non-VA Medications Status 1) Non-VA KETOCONAZOLE SHAMPOO 2%SHAMPOO TOPICALLY ACTIVE 2) Non-VA LIDOCAINE 5% PATCH 1 PATCH TOPICALLY ACTIVE 35 Total Medications MEDICATION RECONCILIATION: The medication list above was reviewed with the patient/surrogate and if changes are indicated they are listed above. Vitals: Temperature: 97 F [36.1 C] (05/02/2023 13:12) Pulse: 102 (05/02/2023 13:12) Respirations: 16 (05/02/2023:12) Blood Pressure: 128/79 (05/02/2023 13:12) Pain: 0 (05/02/2023 13:) RR: unlabored at rest O2 Sat:92% (05/02/2023 13:12) Weight: 379 lb [171.91 kg] (05/02/2023 13:12) Body Mass Index: 45.0 Measurement DT WEIGHT LB(KG)[BMI] 05/02/2023 13:12 379(171.91)[45*] 04/30/2023 14:29 388.3(176.13)[46*] 04/14/2023 14:00 372(168.74)[44*] PHYSICAL EXAM: General: Alert, cooperative, alert and oriented x3, in no acute distress HEENT: Atraumatic and normocephalic LUNGS: Lung sounds clear, no wheezing, normal expansion, respirations unlabored HEART: Irregular, S1, S2, no murmur, rub or gallop ABDOMEN: Obese, soft, nontender, nondistended, bowel sounds present EXTREMITIES: warm, edema bilateral lower legs, pulses present bilaterally PSYCHOLOGICAL: Normal affect LABS: ---- SODIUM 137 (05/02/23) POTASSIUM 3.4 L (05/02/23) CHLORIDE 101 (05/02/23) CO2 28 (05/02/23) GLUCOSE 103 H (05/02/23) UREA NITROGEN 11 (05/02/23) CREATININE 0.9 (05/02/23) ANION GAP: EGFR (02/21) 08/02/21 @ 1412 83 CREATININE EGFR (CKD-EPI) 05/02/23 @ 1255 90 MAGNESIUM 1.9 (05/02/23) CALCIUM 9.2 (05/02/23) PO4____ CREATININE 0.9 PLASMA (05/02/23 12:55) 0.9 PLASMA (03/10/23 13:23) 1.2 PLASMA (02/28/23 13:11) SLT - Lab Tests Selected Collection DT Specimen Test Name Result Units Ref Range 12/27/2022 13:33 PLASMA BNP 103 H pg/mL Ref: <=99 11/27/2022 10:53 PLASMA BNP 92 pg/mL Ref: <=99 11/04/2022 06:14 PLASMA BNP 24 pg/mL Ref: <=99 10/28/2022 23:06 PLASMA BNP 137 H pg/mL Ref: <=99 10/28/2022 16:17 PLASMA BNP 129 H pg/mL Ref: <=99 06/04/2022 12:45 PLASMA BNP 47 pg/mL Ref: <=99 TSH 1.00 (11/06/22) IRON 78 (11/27/22) TRANSFERRIN 212 (11/27/22) TIBC,CALCULATED 265 (11/27/22) IRON SATURATION 29 (11/27/22) FERRITIN 372.2 H (11/27/22) Liver Panel: ALBUMIN 3.7 (11/27/22) ALK PHOSPHATASE 96 (11/27/22) SGPT 21 (11/27/22) SGOT 14 (11/27/22) BILIRUBIN, TOTAL 0.5 (11/27/22) No data available for: GAMMA GTP LIPASE____ AMYLASE,TOTAL____ Collection DT Spec WBC HGB HCT PLT MCV NEUT LYMPHS 01/22/2023 10:52 BLOOD 9.21 15.1 46.7 262 94.3 11/27/2022 10:53 BLOOD 8.94 14.2 43.3 249 94.1 11/06/2022 05:30 BLOOD 10.75 14.4 43.4 310 93.3 Today's Labs: GLUCOSE: 103 H UREA NITROGEN: 11 CREATININE: 0.9 SODIUM: 137 POTASSIUM: 3.4 L CHLORIDE: 101 CO2: 28 CALCIUM: 9.2 MAGNESIUM: 1.9 ANION GAP: 8 CREATININE EGFR (CKD-EPI): 90 GLUCOSE: 103 H UREA NITROGEN: 11 CREATININE: 0.9 SODIUM: 137 POTASSIUM: 3.4 L CHLORIDE: 101 CO2: 28 CALCIUM: 9.2 MAGNESIUM: 1.9 ANION GAP: 8 CREATININE EGFR (CKD-EPI): 90 Assessment/Plan: # Heart failure: Heart failure with preserved ejection fraction. He has no symptoms of acute fluid retention on exam today. He admits to increased use of furosemide. Renal function is stable on increased furosemide. - EF: 55 to 60% - Etiology: Hypertension, obesity, atrial fibrillation with rapid ventricular response - Stage: C - NYHA class: III -- ACEi/ARB/ARNI: Losartan 50 mg daily -- BB: Metoprolol succinate to 100 mg twice daily -- MRA: Not currently prescribed -- SGLT-2: Empagliflozin 12.5 mg daily -- Diuretic: Increase furosemide to 80 mg daily - Medications Optimized: working towards optimization (consider spironolactone) - Last ischemic workup: Stress test March 25, 2023 negative for ischemia - Sleep medicine evaluation: He snores loudly and thinks that he has sleep apnea but declines evaluation since he does not want to treat - Device: Not indicated - Telehealth: Yes, data reviewed today - Last heart failure hospitalization: October 28 to November 06, 2022 - Cardiac rehab: no - Iron studies: IRON 78 (11/27/22) TRANSFERRIN 212 (11/27/22) TIBC,CALCULATED 265 (11/27/22) IRON SATURATION 29 (11/27/22) #Persistent atrial fibrillation: He had an unsuccessful cardioversion on January 22, 2023. ZIO monitor showed atrial fibrillation with average heart rate of 98 bpm. Ventricular rate was greater than 110 bpm 15%. 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 #Hypertension: Average home blood pressure 119/78. Summary of Plan: - Increase furosemide to 80 mg daily - Discuss meal options with dietitian Follow Up: --------- - Follow up in heart failure clinic in 2 months. Assessment and plan discussed with in full detail with all questions answered. Total time spent in patient care was 40 minutes including chart review, diagnostic/testing review, patient interview/examination, counseling and documentation. Thank you for allowing me to participate in the care of GILDA APPLE. Please contact me with any questions or concerns: Brigitte Bailey NP [facility] Heart Failure Clinic, Department of Cardiology HF buildings and grounds director [phone], Option 3 /mateo/ BRIGITTE BAILEY CNP Signed: 05/02/2023 16:01 05/02/2023 ADDENDUM STATUS: COMPLETED Susanne, Can you please call and help coordinate BMP in 1 week? I increased furosemide today and K 3.4 so I want to recheck labs sooner than my 2 month appointment. /mateo/ BRIGITTE BAILEY CNP Signed: 05/02/2023 16:03 Receipt Acknowledged By: 05/06/2023 09:44 /mateo/ SUSANNE CUNNINGHAM RN CHF COUNTER DISH CARRIER 05/02/2023 ADDENDUM STATUS: COMPLETED Delia, What is the plan for rhythm control? You wrote in your note on 03/17 that you would review echo and LVH and make decision on Dofetilide. HRs are still 90s-low 100s. /mateo/ BRIGITTE BAILEY CNP Signed: 05/02/2023 16:05 Receipt Acknowledged By: * AWAITING SIGNATURE * DELIA HOLGUIN [facility] May 02, 2023 04:03 PM ADDENDUM: LOCAL TITLE: Addendum STANDARD TITLE: ADDENDUM DATE OF NOTE: MAY 02, 2023@16:03:57 ENTRY DATE: MAY 02, 2023@16:03:58 AUTHOR: BRIGITTE BAILEY EXP COSIGNER: URGENCY: STATUS: COMPLETED Delia, What is the plan for rhythm control? You wrote in your note on 03/17 that you would review echo and LVH and make decision on Dofetilide. HRs are still 90s-low 100s. /mateo/ BRIGITTE BAILEY CNP Signed: 05/02/2023 16:05 Receipt Acknowledged By: 06/26/2023 11:25 /mateo/ DELIA HOLGUIN CNP, FOREPART REDUCER Electrophysiology Nurse Practitioner --- Original Document --- 05/02/23 CARDIOLOGY CLINIC NOTE: Heart Failure Follow Up History of Present Illness: GILDA APPLE 72y/o male seen at [facility] heart failure clinic today for follow up. He has a history of heart failure with preserved ejection fraction, lymphedema, COPD, hypertension, prediabetes, and BPH. He was hospitalized October 28 to November 06, 2022 with sepsis secondary to cellulitis. He was also retaining fluid, COVID-positive, and had atrial fibrillation with rapid ventricular response (new). He was diuresed about 37 pounds during hospitalization. Echocardiogram in October 29, 2022 showed ejection fraction of 55 to 60% and grade 1 diastolic dysfunction. He had an unsuccessful cardioversion on January 22, 2023. ZIO monitor showed atrial fibrillation with average heart rate of 98 bpm. Ventricular rate was greater than 110 bpm 15%. He was last seen in heart failure clinic on February 28 when metoprolol was increased and he was started on potassium. He was seen by EP [employer]OR WORKER on March 17 with plan to pursue rhythm control with possible dofetilide initiation. Awaiting review with MD. He has chronic shortness of breath with minimal activity. He states that his inhaler helps with his breathing and coughing. He sleeps in a chair due to chronic right hip pain. He takes furosemide 40 mg daily but takes an extra 40 mg as needed for weight gain, shortness of breath, or edema. He states that he takes extra furosemide a few days weekly. He notes increased urine output and improvement of symptoms with furosemide. He denies lightheadedness or abdominal fullness/bloating. His home weight ranges from 372 to 387 pounds. He struggles to stand on the scale and needs to hold onto a grab bar which may affect accuracy of his weights. He is working on following a low sodium diet. He is unable to exercise due to chronic shortness of breath and right hip pain. He uses a walker at home and is in a motorized wheelchair in clinic today. Review of Systems: All other systems were reviewed and are negative other than in the HPI. Active problems - Computerized Problem List is the source for the followin. Hypertension (SNOMED CT 21831278) 2. Tachycardia - EKG 04/24/[address] or T wave changes 3. Chronic back pain (SNOMED CT 058040770) - s/p laminectomy L2-4 '00 - disability parking permit application completed 03/10/18 with exp date 03/2023 4. Other and unspecified alcohol dependence, unspecified drinking behavior 5. Tobacco use (SNOMED CT 277170718) - quit >25yr use 6. SCREEN - c scope - AAA due 65-75 - DEXA due >70 7. 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 SURGERY Hx - laminectomy L2-4 '00 - tonsilectomy - adenoidectomy - R tympanoplasty 9. LUNG LESION - incidental [place] c-[place]ray 04/21/12 [place] @[place] chest 05/01/12 @[place] chest 05/[place]/12 [place] nodules, new effusion, rib frx - [...] 12. Solitary nodule of lung (SNOMED CT 523939920) 13. Chronic obstructive lung disease - PFT done 08/28/15 @[facility] 14. Degenerative joint disease - CT 06/08/2016; bilateral hips mod/severe 15. Benign localized hyperplasia of prostate 16. Arthritis of right hip 17. Lumbar spondylosis 18. Bilateral foot pain 19. Psoriasis 20. Venous stasis edema of bilateral lower limbs 21. Lipodermatosclerosis 22. Diabetes Mellitus Type 2 (SCT 49470606) 23. Diastolic dysfunction 24. Paroxysmal atrial fibrillation 25. Long-term current use of anticoagulant Allergies: Patient has answered NKA Cardiac Medications: [...] TO TREAT AND/OR PREVENT BLOOD CLOTS 6) BARRIER OINTMENT,CRITIC-AID APPLY AFFECTED AREA ACTIVE TOPICALLY THREE TIMES A WEEK 7) BRIEF,TRANQUILITY AUGUSTIN OVERNITE XXL#2118 USE BRIEF ACTIVE DIRECTED NEEDED 8) CLEANSER,WOUND SKINTEGRITY TOP SPRAY SPRAY TO ACTIVE AFFECTED AREA TOPICALLY DIRECTED FOR WOUND CARE 9) CLEANSING CLOTH ATTENDS PKT USE 1 WASHCLOTH TOPICALLY ACTIVE DIRECTED 10) DICLOFENAC NA 1% TOP GEL APPLY 2 GRAMS TOPICALLY TWO ACTIVE TIMES A DAY NEEDED FOR PAIN -USE DOSE CARD IN BOX TO MEASURE DOSE -MAXIMUM OF 32 GM PER DAY 11) DRESSING,MEPILEX BORDER HEEL 8.7INX9.1IN APPLY 1 ACTIVE DRESSING TOPICALLY THREE TIMES WEEKLY 12) EMPAGLIFLOZIN 25MG TAB TAKE ONE-HALF TABLET BY MOUTH ACTIVE EVERY MORNING FOR HEART FAILURE 13) FLUTICASONE PROP 50MCG 120D NASAL INHL SPRAY 2 SPRAYS ACTIVE IN EACH NOSTRIL EVERY DAY FOR NASAL DRIP 14) HYDROPHILIC (EQV AQUAPHOR) TOP OINT APPLY SMALL ACTIVE AMOUNT TOPICALLY THREE TIMES A WEEK FOR DRY SKIN 15) KERLIX 4.5IN STERILE USE 1 BANDAGE TOPICALLY ACTIVE DIRECTED 16) LORATADINE 10MG TAB TAKE ONE TABLET BY MOUTH EVERY ACTIVE DAY NEEDED FOR ALLERGIES 17) LOSARTAN 50MG TAB TAKE ONE TABLET BY MOUTH EVERY ACTIVE MORNING FOR HEART FAILURE 18) METOPROLOL SUCCINATE 100MG SA TAB TAKE ONE TABLET BY ACTIVE MOUTH TWICE A DAY FOR ATRIAL FIBRILLATION 19) MUPIROCIN 2% OINT APPLY THIN LAYER TOPICALLY TWICE A ACTIVE DAY *INDICATION: INFECTED FOOT ULCER* TO AFFECTED AREA PHARMACY CONFIRMATION #: [id number] APPLY TO OPEN SORES AFTER GENTLY WASHING WITH VASHE SOAKS OR DILUTE VINEGAR SOAKS. APPLY ADAPTIC DRESSING OVER AND WRAP WITH KERLIX 20) OLODATEROL/TIOTROP 2.5MCG/ACTUAT 60D INH INHALE 2 ACTIVE PUFFS BY INHALATION EVERY DAY TO PREVENT TROUBLE BREATHING 21) POTASSIUM CL 20MEQ SA TAB (DISPERSIBLE) TAKE ONE ACTIVE TABLET BY MOUTH EVERY DAY FOR POTASSIUM SUPPLEMENT 22) SEMAGLUTIDE 1MG/0.75ML INJ PEN 3ML INJECT 1MG UNDER ACTIVE THE SKIN EVERY WEEK FOR DIABETES 23) SKIN BARRIER FILM 3ML 3M#3345 APPLY PREP TOPICALLY HOLD THREE TIMES A WEEK 24) SKIN PREP WIPE, S&N #[id number] USE 1 WIPE TOPICALLY ACTIVE THREE TIMES A WEEK REPLACES SKIN BARRIER FILM DUE TO BACKORDER 25) SPONGE,NONWOVEN 4IN X 4IN COVER DELORES#8433 USE 1 SPONGE ACTIVE TOPICALLY DIRECTED 26) TAPE,MICROPORE 1IN 3M #1530-1 CUT AND APPLY TAPE ACTIVE TOPICALLY DIRECTED 27) TAZAROTENE 0.1% TOP CREAM APPLY THIN LAYER TOPICALLY ACTIVE AT BEDTIME TO THE FEET WITH THE 40% UREA CREAM, UNDER OCCLUSION DIRECTED 28) TRAZODONE HCL 50MG TAB TAKE ONE TABLET BY MOUTH AT ACTIVE BEDTIME FOR SLEEP 29) TRIAMCINOLONE ACETONIDE 0.1% OINT APPLY THIN LAYER ACTIVE TOPICALLY TWICE A DAY AVOID FACE,GROIN & ARMPITS *FOR EXTERNAL USE ONLY APPLY TO INTACT SKIN ON LOWER LEGS AFTER DILUTE VINEGAR OR VASHE SOAKS. WRAP WITH KERLIX. 30) UREA 40% CREAM APPLY THIN LAYER TOPICALLY EVERY DAY ACTIVE DIRECTED FOR THICK SKIN 31) VANICREAM TOP CREAM APPLY THIN LAYER TOPICALLY EVERY ACTIVE DAY IDEALLY WITHIN 3 MINUTES AFTER BATH OR SHOWER. TO ALL AREAS OF SKIN FOR MOISTURIZER FOR DRY SKIN 32) VASHE WOUND THERAPY TOP SOLN APPLY DIRECTED ACTIVE TOPICALLY DIRECTED SOAK THE AFFECTED AREA FOR 5 MINUTES WITH THE VASHE-MOISTENED GAUZE, THEN USE THE SAME GAUZE TO GENTLY EXFOLIATE THE WOUND BASE. Pending Outpatient Medications Status 1) FUROSEMIDE 40MG TAB TAKE TWO TABLETS BY MOUTH EVERY PENDING MORNING FOR WEIGHT GAIN OR WORSENING HEART FAILURE SYMPTOMS Active Non-VA Medications Status 1) Non-VA KETOCONAZOLE SHAMPOO 2%SHAMPOO TOPICALLY ACTIVE 2) Non-VA LIDOCAINE 5% PATCH 1 PATCH TOPICALLY ACTIVE 35 Total Medications MEDICATION RECONCILIATION: The medication list above was reviewed with the patient/surrogate and if changes are indicated they are listed above. Vitals: Temperature: 97 F [36.1 C] (05/02/2023 13:12) Pulse: 102 (05/02/2023 13:12) Respirations: 16 (05/02/2023 13:12) Blood Pressure: 128/79 (05/02/2023 13:12) Pain: 0 (05/02/2023 13:12) RR: unlabored at rest O2 Sat:92% (05/02/2023 13:12) Weight: 379 lb [171.91 kg] (05/02/2023 13:12) Body Mass Index: 45.0 Measurement DT WEIGHT LB(KG)[BMI] 05/02/2023 13:12 379(171.91)[45*] 04/30/2023 14:29 388.3(176.13)[46*] 04/14/2023 14:00 372(168.74)[44*] PHYSICAL EXAM: General: Alert, cooperative, alert and oriented x3, in no acute distress HEENT: Atraumatic and normocephalic LUNGS: Lung sounds clear, no wheezing, normal expansion, respirations unlabored HEART: Irregular, S1, S2, no murmur, rub or gallop ABDOMEN: Obese, soft, nontender, nondistended, bowel sounds present EXTREMITIES: warm, edema bilateral lower legs, pulses present bilaterally PSYCHOLOGICAL: Normal affect LABS: ---- SODIUM 137 (05/02/23) POTASSIUM 3.4 L (05/02/23) CHLORIDE 101 (05/02/23) CO2 28 (05/02/23) GLUCOSE 103 H (05/02/23) UREA NITROGEN 11 (05/02/23) CREATININE 0.9 (05/02/23) ANION GAP: EGFR (02/21) 08/02/21 @ 1412 83 CREATININE EGFR (CKD-EPI) 05/02/23 @ 1255 90 MAGNESIUM 1.9 (05/02/23) CALCIUM 9.2 (05/02/23) PO4____ CREATININE 0.9 PLASMA (05/02/23 12:55) 0.9 PLASMA (03/10/23 13:23) 1.2 PLASMA (02/28/23 13:11) SLT - Lab Tests Selected Collection DT Specimen Test Name Result Units Ref Range 12/27/2022 13:33 PLASMA BNP 103 H pg/mL Ref: <=99 11/27/2022 10:53 PLASMA BNP 92 pg/mL Ref: <=99 11/04/2022 06:14 PLASMA BNP 24 pg/mL Ref: <=99 10/28/2022 23:06 PLASMA BNP 137 H pg/mL Ref: <=99 10/28/2022 16:17 PLASMA BNP 129 H pg/mL Ref: <=99 06/04/2022 12:45 PLASMA BNP 47 pg/mL Ref: <=99 TSH 1.00 (11/06/22) IRON 78 (11/27/22) TRANSFERRIN 212 (11/27/22) TIBC,CALCULATED 265 (11/27/22) IRON SATURATION 29 (11/27/22) FERRITIN 372.2 H (11/27/22) Liver Panel: ALBUMIN 3.7 (11/27/22) ALK PHOSPHATASE 96 (11/27/22) SGPT 21 (11/27/22) SGOT 14 (11/27/22) BILIRUBIN, TOTAL 0.5 (11/27/22) No data available for: GAMMA GTP LIPASE____ AMYLASE,TOTAL____ Collection DT Spec WBC HGB HCT PLT MCV NEUT LYMPHS 01/22/2023 10:52 BLOOD 9.21 15.1 46.7 262 94.3 11/27/2022 10:53 BLOOD 8.94 14.2 43.3 249 94.1 11/06/2022 05:30 BLOOD 10.75 14.4 43.4 310 93.3 Today's Labs: GLUCOSE: 103 H UREA NITROGEN: 11 CREATININE: 0.9 SODIUM: 137 POTASSIUM: 3.4 L CHLORIDE: 101 CO2: 28 CALCIUM: 9.2 MAGNESIUM: 1.9 ANION GAP: 8 CREATININE EGFR (CKD-EPI): 90 GLUCOSE: 103 H UREA NITROGEN: 11 CREATININE: 0.9 SODIUM: 137 POTASSIUM: 3.4 L CHLORIDE: 101 CO2: 28 CALCIUM: 9.2 MAGNESIUM: 1.9 ANION GAP: 8 CREATININE EGFR (CKD-EPI): 90 Assessment/Plan: # Heart failure: Heart failure with preserved ejection fraction. He has no symptoms of acute fluid retention on exam today. He admits to increased use of furosemide. Renal function is stable on increased furosemide. - EF: 55 to 60% - Etiology: Hypertension, obesity, atrial fibrillation with rapid ventricular response - Stage: C - NYHA class: III -- ACEi/ARB/ARNI: Losartan 50 mg daily -- BB: Metoprolol succinate to 100 mg twice daily -- MRA: Not currently prescribed -- SGLT-2: Empagliflozin 12.5 mg daily -- Diuretic: Increase furosemide to 80 mg daily - Medications Optimized: working towards optimization (consider spironolactone) - Last ischemic workup: Stress test March 25, 2023 negative for ischemia - Sleep medicine evaluation: He snores loudly and thinks that he has sleep apnea but declines evaluation since he does not want to treat - Device: Not indicated - Telehealth: Yes, data reviewed today - Last heart failure hospitalization: October 28 to November 06, 2022 - Cardiac rehab: no - Iron studies: IRON 78 (11/27/22) TRANSFERRIN 212 (11/27/22) TIBC,CALCULATED 265 (11/27/22) IRON SATURATION 29 (11/27/22) #Persistent atrial fibrillation: He had an unsuccessful cardioversion on January 22, 2023. ZIO monitor showed atrial fibrillation with average heart rate of 98 bpm. Ventricular rate was greater than 110 bpm 15%. 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 #Hypertension: Average home blood pressure 119/78. Summary of Plan: - Increase furosemide to 80 mg daily - Discuss meal options with dietitian Follow Up: --------- - Follow up in heart failure clinic in 2 months. Assessment and plan discussed with in full detail with all questions answered. Total time spent in patient care was 40 minutes including chart review, diagnostic/testing review, patient interview/examination, counseling and documentation. Thank you for allowing me to participate in the care of GILDA APPLE. Please contact me with any questions or concerns: Brigitte Bailey NP [facility] Heart Failure Clinic, Department of Cardiology HF buildings and grounds director [phone], Option 3 /es/ BRIGITTE BAILEY RN CASE MANAGER Signed: 05/02/2023 16:01 05/02/2023 ADDENDUM STATUS: COMPLETED Susanne, Can you please call and help coordinate BMP in 1 week? I increased furosemide today and K 3.4 so I want to recheck labs sooner than my 2 month appointment. /mateo/ BRIGITTE BAILEY CNP Signed: 05/02/2023 16:03 Receipt Acknowledged By: 05/06/2023 09:44 /mateo/ SUSANNE CUNNINGHAM RN CHF COUNTER DISH CARRIER 05/19/2023 ADDENDUM STATUS: COMPLETED Susanne, Labs from 05/16 reviewed. I checked labs after increasing lasix on 05/02. Renal function stable. As long as he is not having any side effects on higher dose of lasix, he can continue. His potassium remains slightly low at 3.4. He is on low dose potassium but would benefit from spironolactone for heart failure as well as maintaining normal potassium levels. Please have him start spironolactone 25 mg daily and BMP 1 week later. /mateo/ BRIGITTE BAILEY CNP Signed: 05/19/2023 14:33 Receipt Acknowledged By: 05/20/2023 09:16 /mateo/ SUSANNE CUNNINGHAM RN CHF COUNTER DISH CARRIER 05/20/2023 ADDENDUM STATUS: COMPLETED Mr. Apple has been feeling a little better the past week, noticing less shortness of breath, decreased cough, and less swelling in his feet. His weight is down a few pounds, staying between 368-372# on lasix 80mg daily. Instructed on starting spironolactone 25mg daily with lab follow up in 1 week. Pt verbalizes understanding. He will call with any new or worsening symmptoms. /mateo/ SUSANNE CUNNINGHAM RN CHF COUNTER DISH CARRIER Signed: 05/20/2023 09:28 Receipt Acknowledged By: 05/20/2023 10:00 /nacho BAILEY CNP 06/06/2023 ADDENDUM STATUS: COMPLETED Susanne Labs reviewed from 06/05 drawn after starting spironolactone. Labs stable. Continue current medications. Can you please update ? /nacho BAILEY CNP Signed: 06/06/2023 13:22 Receipt Acknowledged By: 06/06/2023 14:13 /mateo/ SUSANNE CUNNINGHAM RN CHF COUNTER DISH CARRIER 06/06/2023 ADDENDUM STATUS: COMPLETED Called and updated pt on labs. BMP wnl and plan is to continue current meds. Pt verbalized understanding. /mateo/ SUSANNE CUNNINGHAM RN CHF COUNTER DISH CARRIER Signed: 06/06/2023 14:14 BRIGITTE BAILEY [facility] May 02, 2023 04:01 PM ADDENDUM: LOCAL TITLE: Addendum STANDARD TITLE: ADDENDUM DATE OF NOTE: MAY 02, 2023@16:01:49 ENTRY DATE: MAY 02, 2023@16:01:50 AUTHOR: BRIGITTE BAILEY EXP COSIGNER: URGENCY: STATUS: COMPLETED Susanne, Can you please call and help coordinate BMP in 1 week? I increased furosemide today and K 3.4 so I want to recheck labs sooner than my 2 month appointment. /nacho BAILEY CNP Signed: 05/02/2023 16:03 Receipt Acknowledged By: 05/06/2023 09:44 /nacho CUNNINGHAM RN CHF COUNTER DISH CARRIER --- Original Document --- 05/02/23 CARDIOLOGY CLINIC NOTE: Heart Failure Follow Up History of Present Illness: GILDA APPLE 72y/o male seen at [facility] heart failure clinic today for follow up. He has a history of heart failure with preserved ejection fraction, lymphedema, COPD, hypertension, prediabetes, and BPH. He was hospitalized October 28 to November 06, 2022 with sepsis secondary to cellulitis. He was also retaining fluid, COVID-positive, and had atrial fibrillation with rapid ventricular response (new). He was diuresed about 37 pounds during hospitalization. Echocardiogram in October 29, 2022 showed ejection fraction of 55 to 60% and grade 1 diastolic dysfunction. He had an unsuccessful cardioversion on January 22, 2023. ZIO monitor showed atrial fibrillation with average heart rate of 98 bpm. Ventricular rate was greater than 110 bpm 15%. He was last seen in heart failure clinic on February 28 when metoprolol was increased and he was started on potassium. He was seen by EP [employer] FLOOR WORKER on March 17 with plan to pursue rhythm control with possible dofetilide initiation. Awaiting review with MD. He has chronic shortness of breath with minimal activity. He states that his inhaler helps with his breathing and coughing. He sleeps in a chair due to chronic right hip pain. He takes furosemide 40 mg daily but takes an extra 40 mg as needed for weight gain, shortness of breath, or edema. He states that he takes extra furosemide a few days weekly. He notes increased urine output and improvement of symptoms with furosemide. He denies lightheadedness or abdominal fullness/bloating. His home weight ranges from 372 to 387 pounds. He struggles to stand on the scale and needs to hold onto a grab bar which may affect accuracy of his weights. He is working on following a low sodium diet. He is unable to exercise due to chronic shortness of breath and right hip pain. He uses a walker at home and is in a motorized wheelchair in clinic today. Review of Systems: All other systems were reviewed and are negative other than in the HPI. Active problems - Computerized Problem List is the source for the followin. Hypertension (SNOMED CT 52404606) 2. Tachycardia - EKG 04/24/[address] or T wave changes 3. Chronic back pain (SNOMED CT 022623705) - s/p laminectomy L2-4 '00 - disability parking permit application completed 03/10/18 with exp date 03/2023 4. Other and unspecified alcohol dependence, unspecified drinking behavior 5. Tobacco use (SNOMED CT 521514003) - quit >25yr use 6. SCREEN - c scope - AAA due 65-75 - DEXA due >70 7. 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 SURGERY Hx - laminectomy L2-4 '00 - tonsilectomy - adenoidectomy - R tympanoplasty 9. LUNG LESION - incidental [place] c-[place] 04/[place] chest 05/[place]/12 [place] chest 05/[place]/12 [place], [place] effusion, rib frx - [...] 12. Solitary nodule of lung (SNOMED CT 919153131) 13. Chronic obstructive lung disease - PFT done 08/28/15 @[facility] 14. Degenerative joint disease - CT 06/08/2016; bilateral hips mod/severe 15. Benign localized hyperplasia of prostate 16. Arthritis of right hip 17. Lumbar spondylosis 18. Bilateral foot pain 19. Psoriasis 20. Venous stasis edema of bilateral lower limbs 21. Lipodermatosclerosis 22. Diabetes Mellitus Type 2 (SCT 64884239) 23. Diastolic dysfunction 24. Paroxysmal atrial fibrillation 25. Long-term current use of anticoagulant Allergies: Patient has answered NKA Cardiac Medications: [...] TO TREAT AND/OR PREVENT BLOOD CLOTS 6) BARRIER OINTMENT,CRITIC-AID APPLY AFFECTED AREA ACTIVE TOPICALLY THREE TIMES A WEEK 7) BRIEF,TRANQUILITY AUGUSTIN OVERNITE XXL#2118 USE BRIEF ACTIVE DIRECTED NEEDED 8) CLEANSER,WOUND SKINTEGRITY TOP SPRAY SPRAY TO ACTIVE AFFECTED AREA TOPICALLY DIRECTED FOR WOUND CARE 9) CLEANSING CLOTH ATTENDS PKT USE 1 WASHCLOTH TOPICALLY ACTIVE DIRECTED 10) DICLOFENAC NA 1% TOP GEL APPLY 2 GRAMS TOPICALLY TWO ACTIVE TIMES A DAY NEEDED FOR PAIN -USE DOSE CARD IN BOX TO MEASURE DOSE -MAXIMUM OF 32 GM PER DAY 11) DRESSING,MEPILEX BORDER HEEL 8.7INX9.1IN APPLY 1 ACTIVE DRESSING TOPICALLY THREE TIMES WEEKLY 12) EMPAGLIFLOZIN 25MG TAB TAKE ONE-HALF TABLET BY MOUTH ACTIVE EVERY MORNING FOR HEART FAILURE 13) FLUTICASONE PROP 50MCG 120D NASAL INHL SPRAY 2 SPRAYS ACTIVE IN EACH NOSTRIL EVERY DAY FOR NASAL DRIP 14) HYDROPHILIC (EQV AQUAPHOR) TOP OINT APPLY SMALL ACTIVE AMOUNT TOPICALLY THREE TIMES A WEEK FOR DRY SKIN 15) KERLIX 4.5IN STERILE USE 1 BANDAGE TOPICALLY ACTIVE DIRECTED 16) LORATADINE 10MG TAB TAKE ONE TABLET BY MOUTH EVERY ACTIVE DAY NEEDED FOR ALLERGIES 17) LOSARTAN 50MG TAB TAKE ONE TABLET BY MOUTH EVERY ACTIVE MORNING FOR HEART FAILURE 18) METOPROLOL SUCCINATE 100MG SA TAB TAKE ONE TABLET BY ACTIVE MOUTH TWICE A DAY FOR ATRIAL FIBRILLATION 19) MUPIROCIN 2% OINT APPLY THIN LAYER TOPICALLY TWICE A ACTIVE DAY *INDICATION: INFECTED FOOT ULCER* TO AFFECTED AREA PHARMACY CONFIRMATION #: [id number] APPLY TO OPEN SORES AFTER GENTLY WASHING WITH VASHE SOAKS OR DILUTE VINEGAR SOAKS. APPLY ADAPTIC DRESSING OVER AND WRAP WITH KERLIX 20) OLODATEROL/TIOTROP 2.5MCG/ACTUAT 60D INH INHALE 2 ACTIVE PUFFS BY INHALATION EVERY DAY TO PREVENT TROUBLE BREATHING 21) POTASSIUM CL 20MEQ SA TAB (DISPERSIBLE) TAKE ONE ACTIVE TABLET BY MOUTH EVERY DAY FOR POTASSIUM SUPPLEMENT 22) SEMAGLUTIDE 1MG/0.75ML INJ PEN 3ML INJECT 1MG UNDER ACTIVE THE SKIN EVERY WEEK FOR DIABETES 23) SKIN BARRIER FILM 3ML 3M#3345 APPLY PREP TOPICALLY HOLD THREE TIMES A WEEK 24) SKIN PREP WIPE, S&N #[id number] USE 1 WIPE TOPICALLY ACTIVE THREE TIMES A WEEK REPLACES SKIN BARRIER FILM DUE TO BACKORDER 25) SPONGE,NONWOVEN 4IN X 4IN COVER DELORES#1083 USE 1 SPONGE ACTIVE TOPICALLY DIRECTED 26) TAPE,MICROPORE 1IN #1530-1 CUT AND APPLY TAPE ACTIVE TOPICALLY DIRECTED 27) TAZAROTENE 0.1% TOP CREAM APPLY THIN LAYER TOPICALLY ACTIVE AT BEDTIME TO THE FEET WITH THE 40% UREA CREAM, UNDER OCCLUSION DIRECTED 28) TRAZODONE HCL 50MG TAB TAKE ONE TABLET BY MOUTH AT ACTIVE BEDTIME FOR SLEEP 29) TRIAMCINOLONE ACETONIDE 0.1% OINT APPLY THIN LAYER ACTIVE TOPICALLY TWICE A DAY AVOID FACE,GROIN & ARMPITS *FOR EXTERNAL USE ONLY APPLY TO INTACT SKIN ON LOWER LEGS AFTER DILUTE VINEGAR OR VASHE SOAKS. WRAP WITH KERLIX. 30) UREA 40% CREAM APPLY THIN LAYER TOPICALLY EVERY DAY ACTIVE DIRECTED FOR THICK SKIN 31) VANICREAM TOP CREAM APPLY THIN LAYER TOPICALLY EVERY ACTIVE DAY IDEALLY WITHIN 3 MINUTES AFTER BATH OR SHOWER. TO ALL AREAS OF SKIN FOR MOISTURIZER FOR DRY SKIN 32) VASHE WOUND THERAPY TOP SOLN APPLY DIRECTED ACTIVE TOPICALLY DIRECTED SOAK THE AFFECTED AREA FOR 5 MINUTES WITH THE VASHE-MOISTENED GAUZE, THEN USE THE SAME GAUZE TO GENTLY EXFOLIATE THE WOUND BASE. Pending Outpatient Medications Status 1) FUROSEMIDE 40MG TAB TAKE TWO TABLETS BY MOUTH EVERY PENDING MORNING FOR WEIGHT GAIN OR WORSENING HEART FAILURE SYMPTOMS Active Non-VA Medications Status 1) Non-VA KETOCONAZOLE SHAMPOO 2%SHAMPOO TOPICALLY ACTIVE 2) Non-VA LIDOCAINE 5% PATCH 1 PATCH TOPICALLY ACTIVE 35 Total Medications MEDICATION RECONCILIATION: The medication list above was reviewed with the patient/surrogate and if changes are indicated they are listed above. Vitals: Temperature: 97 F [36.1 C] (05/02/2023 13:12) Pulse: 102 (05/02/2023 13:12) Respirations: 16 (05/02/2023 13:12) Blood Pressure: 128/79 (05/02/2023 13:12) Pain: 0 (05/02/2023 13:12) RR: unlabored at rest O2 Sat:92% (05/02/2023 13:12) Weight: 379 lb [171.91 kg] (05/02/2023 13:12) Body Mass Index: 45.0 Measurement DT WEIGHT LB(KG)[BMI] 05/02/2023 13:12 379(171.91)[45*] 04/30/2023 14:29 388.3(176.13)[46*] 04/14/2023 14:00 372(168.74)[44*] PHYSICAL EXAM: General: Alert, cooperative, alert and oriented x3, in no acute distress HEENT: Atraumatic and normocephalic LUNGS: Lung sounds clear, no wheezing, normal expansion, respirations unlabored HEART: Irregular, S1, S2, no murmur, rub or gallop ABDOMEN: Obese, soft, nontender, nondistended, bowel sounds present EXTREMITIES: warm, edema bilateral lower legs, pulses present bilaterally PSYCHOLOGICAL: Normal affect LABS: ---- SODIUM 137 (05/02/23) POTASSIUM 3.4 L (05/02/23) CHLORIDE 101 (05/02/23) CO2 28 (05/02/23) GLUCOSE 103 H (05/02/23) UREA NITROGEN 11 (05/02/23) CREATININE 0.9 (05/02/23) ANION GAP: EGFR (02/21) 08/02/21 @ 1412 83 CREATININE EGFR (CKD-EPI) 05/02/23 @ 1255 90 MAGNESIUM 1.9 (05/02/23) CALCIUM 9.2 (05/02/23) PO4____ CREATININE 0.9 PLASMA (05/02/23 12:55) 0.9 PLASMA (03/10/23 13:23) 1.2 PLASMA (02/28/23 13:11) SLT - Lab Tests Selected Collection DT Specimen Test Name Result Units Ref Range 12/27/2022 13:33 PLASMA BNP 103 H pg/mL Ref: <=99 11/27/2022 10:53 PLASMA BNP 92 pg/mL Ref: <=99 11/04/2022 06:14 PLASMA BNP 24 pg/mL Ref: <=99 10/28/2022 23:06 PLASMA BNP 137 H pg/mL Ref: <=99 10/28/2022 16:17 PLASMA BNP 129 H pg/mL Ref: <=99 06/04/2022 12:45 PLASMA BNP 47 pg/mL Ref: <=99 TSH 1.00 (11/06/22) IRON 78 (11/27/22) TRANSFERRIN 212 (11/27/22) TIBC,CALCULATED 265 (11/27/22) IRON SATURATION 29 (11/27/22) FERRITIN 372.2 H (11/27/22) Liver Panel: ALBUMIN 3.7 (11/27/22) ALK PHOSPHATASE 96 (11/27/22) SGPT 21 (11/27/22) SGOT 14 (11/27/22) BILIRUBIN, TOTAL 0.5 (11/27/22) No data available for: GAMMA GTP LIPASE____ AMYLASE,TOTAL____ Collection DT Spec WBC HGB HCT PLT MCV NEUT LYMPHS 01/22/2023 10:52 BLOOD 9.21 15.1 46.7 262 94.3 11/27/2022 10:53 BLOOD 8.94 14.2 43.3 249 94.1 11/06/2022 05:30 BLOOD 10.75 14.4 43.4 310 93.3 Today's Labs: GLUCOSE: 103 H UREA NITROGEN: 11 CREATININE: 0.9 SODIUM: 137 POTASSIUM: 3.4 L CHLORIDE: 101 CO2: 28 CALCIUM: 9.2 MAGNESIUM: 1.9 ANION GAP: 8 CREATININE EGFR (CKD-EPI): 90 GLUCOSE: 103 H UREA NITROGEN: 11 CREATININE: 0.9 SODIUM: 137 POTASSIUM: 3.4 L CHLORIDE: 101 CO2: 28 CALCIUM: 9.2 MAGNESIUM: 1.9 ANION GAP: 8 CREATININE EGFR (CKD-EPI): 90 Assessment/Plan: # Heart failure: Heart failure with preserved ejection fraction. He has no symptoms of acute fluid retention on exam today. He admits to increased use of furosemide. Renal function is stable on increased furosemide. - EF: 55 to 60% - Etiology: Hypertension, obesity, atrial fibrillation with rapid ventricular response - Stage: C - NYHA class: III -- ACEi/ARB/ARNI: Losartan 50 mg daily -- BB: Metoprolol succinate to 100 mg twice daily -- MRA: Not currently prescribed -- SGLT-2: Empagliflozin 12.5 mg daily -- Diuretic: Increase furosemide to 80 mg daily - Medications Optimized: working towards optimization (consider spironolactone) - Last ischemic workup: Stress test March 25, 2023 negative for ischemia - Sleep medicine evaluation: He snores loudly and thinks that he has sleep apnea but declines evaluation since he does not want to treat - Device: Not indicated - Telehealth: Yes, data reviewed today - Last heart failure hospitalization: October 28 to November 06, 2022 - Cardiac rehab: no - Iron studies: IRON 78 (11/27/22) TRANSFERRIN 212 (11/27/22) TIBC,CALCULATED 265 (11/27/22) IRON SATURATION 29 (11/27/22) #Persistent atrial fibrillation: He had an unsuccessful cardioversion on January 22, 2023. ZIO monitor showed atrial fibrillation with average heart rate of 98 bpm. Ventricular rate was greater than 110 bpm 15%. 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 #Hypertension: Average home blood pressure 119/78. Summary of Plan: - Increase furosemide to 80 mg daily - Discuss meal options with dietitian Follow Up: --------- - Follow up in heart failure clinic in 2 months. Assessment and plan discussed with in full detail with all questions answered. Total time spent in patient care was 40 minutes including chart review, diagnostic/testing review, patient interview/examination, counseling and documentation. Thank you for allowing me to participate in the care of GILDA APPLE. Please contact me with any questions or concerns: Brigitte Bailey NP [facility] Heart Failure Clinic, Department of Cardiology HF buildings and grounds director [phone], Option 3 /es/ BRIGITTE BAILEY RN CASE MANAGER Signed: 05/02/2023 16:01 05/02/2023 ADDENDUM STATUS: COMPLETED Delia, What is the plan for rhythm control? You wrote in your note on 03/17 that you would review echo and LVH and make decision on Dofetilide. HRs are still 90s-low 100s. /mateo/ BRIGITTE BAILEY RN CASE MANAGER Signed: 05/02/2023 16:05 Receipt Acknowledged By: * AWAITING SIGNATURE * DELIA HOLGUIN [facility] May 02, 2023 03:48 PM CARDIOLOGY ATTENDING OUTPATIENT NOTE: LOCAL TITLE: CARDIOLOGY CLINIC NOTE STANDARD TITLE: CARDIOLOGY ATTENDING OUTPATIENT NOTE DATE OF NOTE: MAY 02, 2023@15:48 ENTRY DATE: MAY 02, 2023@15:48:26 AUTHOR: BRIGITTE BAILEY EXP COSIGNER: URGENCY: STATUS: COMPLETED CARDIOLOGY CLINIC NOTE Has ADDENDA Heart Failure Follow Up History of Present Illness: GILDA APPLE 72y/o male seen at [facility] heart failure clinic today for follow up. He has a history of heart failure with preserved ejection fraction, lymphedema, COPD, hypertension, prediabetes, and BPH. He was hospitalized October 28 to November 06, 2022 with sepsis secondary to cellulitis. He was also retaining fluid, COVID-positive, and had atrial fibrillation with rapid ventricular response (new). He was diuresed about 37 pounds during hospitalization. Echocardiogram in October 29, 2022 showed ejection fraction of 55 to 60% and grade 1 diastolic dysfunction. He had an unsuccessful cardioversion on January 22, 2023. ZIO monitor showed atrial fibrillation with average heart rate of 98 bpm. Ventricular rate was greater than 110 bpm 15%. He was last seen in heart failure clinic on February 28 when metoprolol was increased and he was started on potassium. He was seen by EP [employer] SERV[employer] FLOOR WORKER on March 17 with plan to pursue rhythm control with possible dofetilide initiation. Awaiting review with MD. He has chronic shortness of breath with minimal activity. He states that his inhaler helps with his breathing and coughing. He sleeps in a chair due to chronic right hip pain. He takes furosemide 40 mg daily but takes an extra 40 mg as needed for weight gain, shortness of breath, or edema. He states that he takes extra furosemide a few days weekly. He notes increased urine output and improvement of symptoms with furosemide. He denies lightheadedness or abdominal fullness/bloating. His home weight ranges from 372 to 387 pounds. He struggles to stand on the scale and needs to hold onto a grab bar which may affect accuracy of his weights. He is working on following a low sodium diet. He is unable to exercise due to chronic shortness of breath and right hip pain. He uses a walker at home and is in a motorized wheelchair in clinic today. Review of Systems: All other systems were reviewed and are negative other than in the HPI. Active problems - Computerized Problem List is the source for the followin. Hypertension (SNOMED CT 80984066) 2. Tachycardia - EKG 04/24/[address] acute [address] or T wave changes 3. Chronic back pain (SNOMED CT 142879570) - s/p laminectomy L2-4 00 - disability parking permit application completed 03/10/18 with exp date 03/2023 4. Other and unspecified alcohol dependence, unspecified drinking behavior 5. Tobacco use (SNOMED CT 043534708) - quit >25yr use 6. SCREEN - c scope - AAA due 65-75 - DEXA due >70 7. 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 SURGERY Hx - laminectomy L2-4 '00 - tonsilectomy - adenoidectomy - R tympanoplasty '78 9. LUNG LESION - incidental on c-[place]ray 04/21/12 [place] @[place] chest 05/01/12 @[place] chest 05/25/12 @[place] lung nodules, new effusion, rib frx - [...] 12. Solitary nodule of lung (SNOMED CT [id number]) 13. Chronic obstructive lung disease - PFT done 08/28/15 @[facility] 14. Degenerative joint disease - CT 06/08/2016; bilateral hips mod/severe 15. Benign localized hyperplasia of prostate 16. Arthritis of right hip 17. Lumbar spondylosis 18. Bilateral foot pain 19. Psoriasis 20. Venous stasis edema of bilateral lower limbs 21. Lipodermatosclerosis 22. Diabetes Mellitus Type 2 ([facility] [id number]) 23. Diastolic dysfunction 24. Paroxysmal atrial fibrillation 25. Long-term current use of anticoagulant Allergies: Patient has answered NKA Cardiac Medications: [...] TO TREAT AND/OR PREVENT BLOOD CLOTS 6) BARRIER OINTMENT,CRITIC-AID APPLY AFFECTED AREA ACTIVE TOPICALLY THREE TIMES A WEEK 7) BRIEF,TRANQUILITY AUGUSTIN OVERNITE XXL#2118 USE BRIEF ACTIVE DIRECTED NEEDED 8) CLEANSER,WOUND SKINTEGRITY TOP SPRAY SPRAY TO ACTIVE AFFECTED AREA TOPICALLY DIRECTED FOR WOUND CARE 9) CLEANSING CLOTH ATTENDS PKT USE 1 WASHCLOTH TOPICALLY ACTIVE DIRECTED 10) DICLOFENAC NA 1% TOP GEL APPLY 2 GRAMS TOPICALLY TWO ACTIVE TIMES A DAY NEEDED FOR PAIN -USE DOSE CARD IN BOX TO MEASURE DOSE -MAXIMUM OF 32 GM PER DAY 11) DRESSING,MEPILEX BORDER HEEL 8.7INX9.1IN APPLY 1 ACTIVE DRESSING TOPICALLY THREE TIMES WEEKLY 12) EMPAGLIFLOZIN 25MG TAB TAKE ONE-HALF TABLET BY MOUTH ACTIVE EVERY MORNING FOR HEART FAILURE 13) FLUTICASONE PROP 50MCG 120D NASAL INHL SPRAY 2 SPRAYS ACTIVE IN EACH NOSTRIL EVERY DAY FOR NASAL DRIP 14) HYDROPHILIC (EQV AQUAPHOR) TOP OINT APPLY SMALL ACTIVE AMOUNT TOPICALLY THREE TIMES A WEEK FOR DRY SKIN 15) KERLIX 4.5IN STERILE USE 1 BANDAGE TOPICALLY ACTIVE DIRECTED 16) LORATADINE 10MG TAB TAKE ONE TABLET BY MOUTH EVERY ACTIVE DAY NEEDED FOR ALLERGIES 17) LOSARTAN 50MG TAB TAKE ONE TABLET BY MOUTH EVERY ACTIVE MORNING FOR HEART FAILURE 18) METOPROLOL SUCCINATE 100MG SA TAB TAKE ONE TABLET BY ACTIVE MOUTH TWICE A DAY FOR ATRIAL FIBRILLATION 19) MUPIROCIN 2% OINT APPLY THIN LAYER TOPICALLY TWICE A ACTIVE DAY *INDICATION: INFECTED FOOT ULCER* TO AFFECTED AREA PHARMACY CONFIRMATION #: [id number] APPLY TO OPEN SORES AFTER GENTLY WASHING WITH VASHE SOAKS OR DILUTE VINEGAR SOAKS. APPLY ADAPTIC DRESSING OVER AND WRAP WITH KERLIX 20) OLODATEROL/TIOTROP 2.5MCG/ACTUAT 60D INH INHALE 2 ACTIVE PUFFS BY INHALATION EVERY DAY TO PREVENT TROUBLE BREATHING 21) POTASSIUM CL 20MEQ SA TAB (DISPERSIBLE) TAKE ONE ACTIVE TABLET BY MOUTH EVERY DAY FOR POTASSIUM SUPPLEMENT 22) SEMAGLUTIDE 1MG/0.75ML INJ PEN 3ML INJECT 1MG UNDER ACTIVE THE SKIN EVERY WEEK FOR DIABETES 23) SKIN BARRIER FILM 3ML 3M#3345 APPLY PREP TOPICALLY HOLD THREE TIMES A WEEK 24) SKIN PREP WIPE, S&N #[id number] USE 1 WIPE TOPICALLY ACTIVE THREE TIMES A WEEK REPLACES SKIN BARRIER FILM DUE TO BACKORDER 25) SPONGE,NONWOVEN 4IN X 4IN COVER DELORES#2913 USE 1 SPONGE ACTIVE TOPICALLY DIRECTED 26) TAPE,MICROPORE 1IN #1530-1 CUT AND APPLY TAPE ACTIVE TOPICALLY DIRECTED 27) TAZAROTENE 0.1% TOP CREAM APPLY THIN LAYER TOPICALLY ACTIVE AT BEDTIME TO THE FEET WITH THE 40% UREA CREAM, UNDER OCCLUSION DIRECTED 28) TRAZODONE HCL 50MG TAB TAKE ONE TABLET BY MOUTH AT ACTIVE BEDTIME FOR SLEEP 29) TRIAMCINOLONE ACETONIDE 0.1% OINT APPLY THIN LAYER ACTIVE TOPICALLY TWICE A DAY AVOID FACE,GROIN & ARMPITS *FOR EXTERNAL USE ONLY APPLY TO INTACT SKIN ON LOWER LEGS AFTER DILUTE VINEGAR OR VASHE SOAKS. WRAP WITH KERLIX. 30) UREA 40% CREAM APPLY THIN LAYER TOPICALLY EVERY DAY ACTIVE DIRECTED FOR THICK SKIN 31) VANICREAM TOP CREAM APPLY THIN LAYER TOPICALLY EVERY ACTIVE DAY IDEALLY WITHIN 3 MINUTES AFTER BATH OR SHOWER. TO ALL AREAS OF SKIN FOR MOISTURIZER FOR DRY SKIN 32) VASHE WOUND THERAPY TOP SOLN APPLY DIRECTED ACTIVE TOPICALLY DIRECTED SOAK THE AFFECTED AREA FOR 5 MINUTES WITH THE VASHE-MOISTENED GAUZE, THEN USE THE SAME GAUZE TO GENTLY EXFOLIATE THE WOUND BASE. Pending Outpatient Medications Status 1) FUROSEMIDE 40MG TAB TAKE TWO TABLETS BY MOUTH EVERY PENDING MORNING FOR WEIGHT GAIN OR WORSENING HEART FAILURE SYMPTOMS Active Non-VA Medications Status 1) Non-VA KETOCONAZOLE SHAMPOO 2%SHAMPOO TOPICALLY ACTIVE 2) Non-VA LIDOCAINE 5% PATCH 1 PATCH TOPICALLY ACTIVE 35 Total Medications MEDICATION RECONCILIATION: The medication list above was reviewed with the patient/surrogate and if changes are indicated they are listed above. Vitals: Temperature: 97 F [36.1 C] (05/02/2023 13:12) Pulse: 102 (05/02/2023 13:12) Respirations: 16 (05/02/2023 13:12) Blood Pressure: 128/79 (05/02/2023 13:12) Pain: 0 (05/02/2023 13:12) RR: unlabored at rest O2 Sat:92% (05/02/2023 13:12) Weight: 379 lb [171.91 kg] (05/02/2023 13:12) Body Mass Index: 45.0 Measurement DT WEIGHT LB(KG)[BMI] 05/02/2023 13:12 379(171.91)[45*] 04/30/2023 14:29 388.3(176.13)[46*] 04/14/2023 14:00 372(168.74)[44*] PHYSICAL EXAM: General: Alert, cooperative, alert and oriented x3, in no acute distress HEENT: Atraumatic and normocephalic LUNGS: Lung sounds clear, no wheezing, normal expansion, respirations unlabored HEART: Irregular, S1, S2, no murmur, rub or gallop ABDOMEN: Obese, soft, nontender, nondistended, bowel sounds present EXTREMITIES: warm, edema bilateral lower legs, pulses present bilaterally PSYCHOLOGICAL: Normal affect LABS: ---- SODIUM 137 (05/02/23) POTASSIUM 3.4 L (05/02/23) CHLORIDE 101 (05/02/23) CO2 28 (05/02/23) GLUCOSE 103 H (05/02/23) UREA NITROGEN 11 (05/02/23) CREATININE 0.9 (05/02/23) ANION GAP: EGFR (02/21) 08/02/21 @ 1412 83 CREATININE EGFR (CKD-EPI) 05/02/23 @ 1255 90 MAGNESIUM 1.9 (05/02/23) CALCIUM 9.2 (05/02/23) PO4____ CREATININE 0.9 PLASMA (05/02/23 12:55) 0.9 PLASMA (03/10/23 13:23) 1.2 PLASMA (02/28/23 13:11) SLT - Lab Tests Selected Collection DT Specimen Test Name Result Units Ref Range 12/27/2022 13:33 PLASMA BNP 103 H pg/mL Ref: <=99 11/27/2022 10:53 PLASMA BNP 92 pg/mL Ref: <=99 11/04/2022 06:14 PLASMA BNP 24 pg/mL Ref: <=99 10/28/2022 23:06 PLASMA BNP 137 H pg/mL Ref: <=99 10/28/2022 16:17 PLASMA BNP 129 H pg/mL Ref: <=99 06/04/2022 12:45 PLASMA BNP 47 pg/mL Ref: <=99 TSH 1.00 (11/06/22) IRON 78 (11/27/22) TRANSFERRIN 212 (11/27/22) TIBC,CALCULATED 265 (11/27/22) IRON SATURATION 29 (11/27/22) FERRITIN 372.2 H (11/27/22) Liver Panel: ALBUMIN 3.7 (11/27/22) ALK PHOSPHATASE 96 (11/27/22) SGPT 21 (11/27/22) SGOT 14 (11/27/22) BILIRUBIN, TOTAL 0.5 (11/27/22) No data available for: GAMMA GTP LIPASE____ AMYLASE,TOTAL____ Collection DT Spec WBC HGB HCT PLT MCV NEUT LYMPHS 01/22/2023 10:52 BLOOD 9.21 15.1 46.7 262 94.3 11/27/2022 10:53 BLOOD 8.94 14.2 43.3 249 94.1 11/06/2022 05:30 BLOOD 10.75 14.4 43.4 310 93.3 Today's Labs: GLUCOSE: 103 H UREA NITROGEN: 11 CREATININE: 0.9 SODIUM: 137 POTASSIUM: 3.4 L CHLORIDE: 101 CO2: 28 CALCIUM: 9.2 MAGNESIUM: 1.9 ANION GAP: 8 CREATININE EGFR (CKD-EPI): 90 GLUCOSE: 103 H UREA NITROGEN: 11 CREATININE: 0.9 SODIUM: 137 POTASSIUM: 3.4 L CHLORIDE: 101 CO2: 28 CALCIUM: 9.2 MAGNESIUM: 1.9 ANION GAP: 8 CREATININE EGFR (CKD-EPI): 90 Assessment/Plan: # Heart failure: Heart failure with preserved ejection fraction. He has no symptoms of acute fluid retention on exam today. He admits to increased use of furosemide. Renal function is stable on increased furosemide. - EF: 55 to 60% - Etiology: Hypertension, obesity, atrial fibrillation with rapid ventricular response - Stage: C - NYHA class: III -- ACEi/ARB/ARNI: Losartan 50 mg daily -- BB: Metoprolol succinate to 100 mg twice daily -- MRA: Not currently prescribed -- SGLT-2: Empagliflozin 12.5 mg daily -- Diuretic: Increase furosemide to 80 mg daily - Medications Optimized: working towards optimization (consider spironolactone) - Last ischemic workup: Stress test March 25, 2023 negative for ischemia - Sleep medicine evaluation: He snores loudly and thinks that he has sleep apnea but declines evaluation since he does not want to treat - Device: Not indicated - Telehealth: Yes, data reviewed today - Last heart failure hospitalization: October 28 to November 06, 2022 - Cardiac rehab: no - Iron studies: IRON 78 (11/27/22) TRANSFERRIN 212 (11/27/22) TIBC,CALCULATED 265 (11/27/22) IRON SATURATION 29 (11/27/22) #Persistent atrial fibrillation: He had an unsuccessful cardioversion on January 22, 2023. ZIO monitor showed atrial fibrillation with average heart rate of 98 bpm. Ventricular rate was greater than 110 bpm 15%. 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 #Hypertension: Average home blood pressure 119/78. Summary of Plan: - Increase furosemide to 80 mg daily - Discuss meal options with dietitian Follow Up: --------- - Follow up in heart failure clinic in 2 months. Assessment and plan discussed with in full detail with all questions answered. Total time spent in patient care was 40 minutes including chart review, diagnostic/testing review, patient interview/examination, counseling and documentation. Thank you for allowing me to participate in the care of GILDA APPLE. Please contact me with any questions or concerns: Brigitte Bailey NP [facility] Heart Failure Clinic, Department of Cardiology HF buildings and grounds director [phone], Option 3 /mateo/ BRIGITTE BIALEY CNP Signed: 05/02/2023 16:01 05/02/2023 ADDENDUM STATUS: CAIN Skinner, Can you please call and help coordinate BMP in 1 week? I increased furosemide today and K 3.4 so I want to recheck labs sooner than my 2 month appointment. /mateo/ BRIGITTE BAILEY CNP Signed: 05/02/2023 16:03 Receipt Acknowledged By: 05/06/2023 09:44 /mateo/ SUSANNE CUNNINGHAM RN CHF COUNTER DISH CARRIER 05/02/2023 ADDENDUM STATUS: COMPLETED Delia, What is the plan for rhythm control? You wrote in your note on 03/17 that you would review echo and LVH and make decision on Dofetilide. HRs are still 90s-low 100s. /mateo/ BRIGITTE BAILEY CNP Signed: 05/02/2023 16:05 Receipt Acknowledged By: * AWAITING SIGNATURE * DELIA HOLGUIN 05/19/2023 ADDENDUM STATUS: COMPLETED Susanne, Labs from 05/16 reviewed. I checked labs after increasing lasix on 05/02. Renal function stable. As long as he is not having any side effects on higher dose of lasix, he can continue. His potassium remains slightly low at 3.4. He is on low dose potassium but would benefit from spironolactone for heart failure as well as maintaining normal potassium levels. Please have him start spironolactone 25 mg daily and BMP 1 week later. /mateo/ BRIGITTE BAILEY CNP Signed: 05/19/2023 14:33 Receipt Acknowledged By: 05/20/2023 09:16 /mateo/ SUSANNE CUNNINGHAM RN CHF COUNTER DISH CARRIER 05/20/2023 ADDENDUM STATUS: COMPLETED Mr. Apple has been feeling a little better the past week, noticing less shortness of breath, decreased cough, and less swelling in his feet. His weight is down a few pounds, staying between 368-372# on lasix 80mg daily. Instructed on starting spironolactone 25mg daily with lab follow up in 1 week. Pt verbalizes understanding. He will call with any new or worsening symmptoms. /mateo/ SUSANNE CUNNINGHAM RN CHF COUNTER DISH CARRIER Signed: 05/20/2023 09:28 Receipt Acknowledged By: 05/20/2023 10:00 /mateo/ BRIGITTE BAILEY CNP 06/06/2023 ADDENDUM STATUS: COMPLETED Susanne Labs reviewed from 06/05 drawn after starting spironolactone. Labs stable. Continue current medications. Can you please update ? /nacho BAILEY CNP Signed: 06/06/2023 13:22 Receipt Acknowledged By: 06/06/2023 14:13 /mateo/ SUSANNE CUNNINHGAM RN CHF COUNTER DISH CARRIER 06/06/2023 ADDENDUM STATUS: COMPLETED Called and updated pt on labs. BMP wnl and plan is to continue current meds. Pt verbalized understanding. /mateo/ SUSANNE CUNNINGHAM RN CHF COUNTER DISH CARRIER Signed: 06/06/2023 14:14 BRIGITTE BAILEY [facility] May 02, 2023 01:16 PM INTERNAL MEDICINE OUTPATIENT NOTE: LOCAL TITLE: MEDICINE CLINIC NURSING NOTE STANDARD TITLE: INTERNAL MEDICINE OUTPATIENT NOTE DATE OF NOTE: MAY 02, 2023@13:16 ENTRY DATE: MAY 02, 2023@13:16:23 AUTHOR: CLARK SALVADOR EXP COSIGNER: URGENCY: STATUS: COMPLETED TYPE OF VISIT: Appointment Check In Type of appointment: In-person appointment REASON FOR VISIT: scheduled visit ALLERGIES: Patient has answered NKA VITAL SIGNS: Blood Pressure: 128/79 (05/02/2023 13:12) Pulse: 102 (05/02/2023 13:12) Respiration: 16 (05/02/2023 13:12) Temperature: 97 F [36.1 C] (05/02/2023 13:12) Weight: 379 lb [171.91 kg] (05/02/2023 13:12) Height: 77.0 in [195.6 cm] (01/22/2023 11:41) BMI: 45.0 O2 Sat: 92% (05/02/2023 13:12) Pain: 0 (05/02/2023 13:12) PAIN SCREEN: Patient is not having significant pain that they wish to discuss with their provider today. MEDICATION Active Outpatient Medications (including Supplies): A & [...] ACTIVE TO TREAT AND/OR PREVENT BLOOD CLOTS BARRIER OINTMENT,CRITIC-AID APPLY AFFECTED AREA TOPICALLY ACTIVE THREE TIMES A WEEK BRIEF,TRANQUILITY AUGUSTIN OVERNITE XXL#2118 USE BRIEF ACTIVE DIRECTED NEEDED CLEANSER,WOUND SKINTEGRITY TOP SPRAY SPRAY TO AFFECTED ACTIVE AREA TOPICALLY DIRECTED FOR WOUND CARE CLEANSING CLOTH ATTENDS PKT USE 1 WASHCLOTH TOPICALLY ACTIVE DIRECTED DICLOFENAC NA 1% TOP GEL APPLY 2 GRAMS TOPICALLY TWO TIMES ACTIVE A DAY NEEDED FOR PAIN -USE DOSE CARD IN BOX TO MEASURE DOSE -MAXIMUM OF 32 GM PER DAY DRESSING,MEPILEX BORDER HEEL 8.7INX9.1IN APPLY 1 DRESSING ACTIVE TOPICALLY THREE TIMES WEEKLY EMPAGLIFLOZIN 25MG TAB TAKE ONE-HALF TABLET BY MOUTH EVERY ACTIVE MORNING FOR HEART FAILURE FLUTICASONE PROP 50MCG 120D NASAL INHL SPRAY 2 SPRAYS IN ACTIVE EACH NOSTRIL EVERY DAY FOR NASAL DRIP FUROSEMIDE 40MG TAB TAKE ONE TABLET BY MOUTH EVERY DAY AND ACTIVE TAKE ONE TABLET EVERY DAY NEEDED FOR WEIGHT GAIN OR WORSENING HEART FAILURE SYMPTOMS HYDROPHILIC (EQV AQUAPHOR) TOP OINT APPLY SMALL AMOUNT ACTIVE TOPICALLY THREE TIMES A WEEK FOR DRY SKIN KERLIX 4.5IN STERILE USE 1 BANDAGE TOPICALLY DIRECTED ACTIVE LORATADINE 10MG TAB TAKE ONE TABLET BY MOUTH EVERY DAY ACTIVE NEEDED FOR ALLERGIES LOSARTAN 50MG TAB TAKE ONE TABLET BY MOUTH EVERY MORNING ACTIVE FOR HEART FAILURE METOPROLOL SUCCINATE 100MG SA TAB TAKE ONE TABLET BY MOUTH ACTIVE TWICE A DAY FOR ATRIAL FIBRILLATION MUPIROCIN 2% OINT APPLY THIN LAYER TOPICALLY TWICE A DAY ACTIVE *INDICATION: INFECTED FOOT ULCER* TO AFFECTED AREA PHARMACY CONFIRMATION #: [id number] APPLY TO OPEN SORES AFTER GENTLY WASHING WITH VASHE SOAKS OR DILUTE VINEGAR SOAKS. APPLY ADAPTIC DRESSING OVER AND WRAP WITH KERLIX OLODATEROL/TIOTROP 2.5MCG/ACTUAT 60D INH INHALE 2 PUFFS BY ACTIVE INHALATION EVERY DAY TO PREVENT TROUBLE BREATHING POTASSIUM CL 20MEQ SA TAB (DISPERSIBLE) TAKE ONE TABLET BY ACTIVE MOUTH EVERY DAY FOR POTASSIUM SUPPLEMENT SEMAGLUTIDE 1MG/0.75ML INJ PEN 3ML INJECT 1MG UNDER THE ACTIVE SKIN EVERY WEEK FOR DIABETES SKIN BARRIER FILM 3ML 3M#5775 APPLY PREP TOPICALLY THREE HOLD TIMES A WEEK SKIN PREP WIPE, S&N #121006 USE 1 WIPE TOPICALLY THREE ACTIVE TIMES A WEEK REPLACES SKIN BARRIER FILM DUE TO BACKORDER SPONGE,NONWOVEN 4IN X 4IN COVER DELORES#2913 USE 1 SPONGE ACTIVE TOPICALLY DIRECTED TAPE,MICROPORE 1IN #1530-1 CUT AND APPLY TAPE TOPICALLY ACTIVE DIRECTED TAZAROTENE 0.1% TOP CREAM APPLY THIN LAYER [...] VINEGAR OR VASHE SOAKS. WRAP WITH KERLIX. UREA 40% CREAM APPLY THIN LAYER TOPICALLY EVERY DAY ACTIVE DIRECTED FOR THICK SKIN VANICREAM TOP CREAM APPLY THIN LAYER TOPICALLY EVERY DAY ACTIVE IDEALLY WITHIN 3 MINUTES AFTER BATH OR SHOWER. TO ALL AREAS OF SKIN FOR MOISTURIZER FOR DRY SKIN VASHE WOUND THERAPY TOP SOLN APPLY DIRECTED TOPICALLY ACTIVE DIRECTED SOAK THE AFFECTED AREA FOR 5 MINUTES WITH THE VASHE-MOISTENED GAUZE, THEN USE THE SAME GAUZE TO GENTLY EXFOLIATE THE WOUND BASE. Non-VA KETOCONAZOLE SHAMPOO 2%SHAMPOO TOPICALLY ACTIVE Non-VA LIDOCAINE 5% PATCH 1 PATCH TOPICALLY ACTIVE /mateo/ CLARK SALVADOR LPN LPN Signed: 05/02/2023 13:17 CLARK SALVADOR [facility]
--- OUTSIDE RECORDS SUMMARY | 2024-03-25 10:32 | XMS_ITS | Encounter Summary ---
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 Date/Time Encounter Type Encounter Description Reason Provider Source Mar 25, 2023 01:00 PM OFF/OP CNSLTJ NEW/EST MOD 40 CARDIOLOGY ICD-10-CM I10 Essential (primary) hypertension JOYCE RAE Homero Encounter Template Text not used by [place] Assessments - Encounter Diagnoses This section includes the primary and secondary diagnoses documented for the Encounter. Date/Time Primary/Secondary Diagnosis Diagnosis Name Provider Source Mar 25, 2023 03:08 PM PRIMARY Essential (primary) hypertension JOYCE RAE [facility] Mar 25, 2023 03:08 PM SECONDARY Chest pain, unspecified JOYCE RAE [facility] Mar 25, 2023 03:08 PM SECONDARY MCFP (current) use of 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 JOYCE RAE [facility] Mar 25, 2023 03:08 PM SECONDARY Other ill-defined heart diseases JOYCE RAE [facility] Mar 25, 2023 03:08 PM SECONDARY Paroxysmal atrial fibrillation JOYCE RAE [facility] Mar 25, 2023 03:08 PM SECONDARY Type 2 diabetes mellitus without complications JOYCE RAE [facility] Plan of Treatment: Future Appointments (+ 6 months) and Future Tests (+/- 45 days) The Plan of Treatment section includes future care activities for the patient from all [facility]. This section includes future appointments and future orders which are active, pending or scheduled. Future Appointments This section includes appointments that were scheduled to occur 6 months from the date of the Encounter, up to a maximum of 20 appointments. The data comes from all [facility]. Appointment Date/Time Appointment Type Appointme nt Facility Name Apr 02, 2023 07:00 AM AMBULATORY - NONE [facility] Apr 14, 2023 01:30 PM AMBULATORY - NONE [facility] Apr 30, 2023 01:30 PM AMBULATORY - REHAB MEDICIN E [facility] Apr 30, 2023 02:45 PM [facility] May 02, 2023 02:00 PM [facility] May 02, 2023 03:00 PM [facility] May 09, 2023 01:30 PM AMBULATORY - NONE [facility] May 16, 2023 01:30 PM AMBULATORY - NONE [facility] Jun 05, 2023 01:30 PM AMBULATORY - NONE [facility] Jun 05, 2023 03:30 PM AMBULATORY - NONE [facility] Jun 09, 2023 07:00 AM [facility]ONE [facility] [facility] Jul 02, 2023 01:30 PM [place] [facility] Jul 02, 2023 02:30 PM [place] [facility] Jul 07, 2023 07:00 AM AM[facility]ORY - NONE [place] [facility] Jul 07, 2023 07:30 AM [place] [facility] Jul 07, 2023 08:00 AM AM[place] [facility] Jul 07, 2023 09:00 [facility] Jul 07, 2023 10:15 AM AMBULATORY - NONE [facility] Jul 07, 2023 10:30 AM [facility] Jul 11, 2023 11:00 AM AMBULATORY - MEDICINE [facility] Lab Results: +/- 30 days of the encounter This section includes the Chemistry and Hematology Lab Results on record with [place] for the patient. Radiology Reports and Pathology Reports are provided separately, in subsequent sections. Lab Results This section contains the Chemistry/Hematology Results that were resulted 30 days before or 30 daysafter the date of the Encounter. Date/Time Source Result Type Result - Unit Interpretation Reference Range Comment Mar 10, 2023 01:23 PM [facility] BASIC METABOLIC PANEL+MG Specimen Type: PLASMA No comment entered. Ordering Provider: FLAQUITO BAILEY Report Released Date/Time: Feb 28, 2023 03:04 PM Reporting Lab: [facility] [id number] Performing Lab: [facility] [id number] CREATININE 0.9 mg/dL 0.7-1.2 UREA NITROGEN 15 mg/dL 8-26 GLUCOSE 115 mg/dL H 70-100 SODIUM 139 mmol/L 136-145 POTASSIUM 4.0 mmol/L 3.5-5.1 CHLORIDE 107 mmol/L 98-107 CO2 23 mmol/L 22-29 CALCIUM 9.2 mg/dL 8.4-10.2 MAGNESIUM 2.0 mg/dL 1.6-2.6 ANION GAP 9 mmol/L 5-15 .CREAT EGFR(CKD-EPI ) 90 >60 Feb 28, 2023 01:11 PM [facility] BASIC METABOLIC PANEL+MG Specimen Type: PLASMA No comment entered. Ordering Provider: FLAQUITO BAILEY Report Released Date/Time: Dec 27, 2022 03:05 PM Reporting Lab: [facility] [id number] Performing Lab: [facility] [phone] CREATININE 1.2 mg/dL 0.7-1.2 UREA NITROGEN 14 mg/dL 8-26 GLUCOSE 107 mg/dL H 70-100 SODIUM 140 mmol/L 136-145 POTASSIUM 3.2 mmol/L L 3.5-5.1 CHLORIDE 104 mmol/L 98-107 CO2 25 mmol/L 22-29 CALCIUM 9.1 mg/dL 8.4-10.2 MAGNESIUM 2.0 mg/dL 1.6-2.6 ANION GAP 11 mmol/L 5-15 .CREAT EGFR(CKD-EPI ) 64 >60 Social History: Smoking Status (Most current) and Tobacco Use (All prior to encounter date) This section includes the most current, and the historical, smoking and tobacco- related health factors from the [place] facility where the Encounter took place. Current Smoking Status This section includes the most current smoking, or tobacco-related health factor, from the [place] facility where the Encounter took place. Date/Time Current Smoking Status Comment Facil ity Dec 19, 2020 12:07 PM VA-TOBACCO FORMER USER [facility] Tobacco Use History This section includes a history of the smoking, or tobacco-related health factors, that were collected on or before the date of the Encounter. The data comes from the [place] facility where the Encounter took place. Date/Time Smoking Status/Tobacco Use Comment F acility Dec 19, 2020 12:07 PM [place]-TO[place]AC[place] QU[place] 5 TO < 15 YRS [facility] Aug 02, 2015 09:49 AM CURRENT TOBACCO USER [facility] Jun 06, 2014 08:51 AM CURRENT TOBACCO USER [facility] May 04, 2013 09:29 AM CURRENT TOBACCO USER [facility] Apr 24, 2012 07:40 AM CURRENT TOBACCO USER [facility] Advance Directives: All historical and current Section Date Range: From patient's date of to the date document was created. This section includes ALL of a patient's completed or amended [place] Advance and Rescinded Directives. The entries below indicate that a directive exists for the patient, but an actual copy is not included with this document. The data comes from all [facility]. Date Advance Directives Provider Source Jan 02, 2023 STATE-AUTHORIZED PORTABLE ORDERS [facility] Radiology Reports: +/- 30 days of the encounter Radiology Reports For cases when an order for radiology services may have been completed prior to the date of the Encounter, the report list includes the Radiology Reports that were completed up to 30 days before dateof the Encounter. For cases when an order for radiology services may have been completed after the date of the Encounter, the report list also includes the Radiology Reports that were completed up to30 days after date of the Encounter. The data comes from all [place] treatment facilities. Date/Time Radiology Report Provider Source Mar 25, 2023 07:58 AM MYOCARDIAL PERFUSI ON PHARMACOLOGIC STRESS/REST: GILDA APPLE [id number] -[id number] M Exm Date: MAR 25, 2023@07:58 Req Phys: VEL ANDREWS Pat Loc: [facility] CARDIAC AEU EVAL #[id number] (Re Img Loc: NUC MED Service: Unknown (Case 188 COMPLETE) MYOCARDIAL PERFUSION (SPECT)-MULT(NM Detailed) CPT:19818 Reason for Study: chest pain (Case 189 COMPLETE) TC-99M SESTAMIBI (CARDIOLITE), PE(NM Detailed) CPT:A9500 (Case 190 COMPLETE) CARDIOVASCULAR STRESS TEST (NM Detailed) CPT:76311 Clinical History: Is this patient on Observation Status? No If this is a diagnostic procedure, has the patient's age and recent imaging history been considered? Yes chest pain Responsible provider name and phone number to notify for critical findings if other than user placing the order and pager listed below: User placing orders pager: LAST CREATININE 1.2 (02/28/23) Is the patient taking/taken dipyridamole/aggrenox in the last week? No Has patient taken theophylline products in the last 3 days? No Patient has been educated not to consume coffee, Sanka, tea or soft drinks 8 hours prior to test? No Report Status: Verified Date Reported: MAR 25, 2023 Date Verified: MAR 25, 2023 Sole Polisher E-Sig:/MATEO/GADIEL MORELAND MD Report: Regadenoson myocardial perfusion study History: Chest pain. Dose: 0.4 mg of Regadenoson IV followed by 29.5 mCi Tc-99 m Sestamibi. 10.0 mCi Tc-99 m Sestamibi IV for the resting study. No adverse effects. No diagnostic EKG changes. SPECT images demonstrate no diagnostic abnormality. Inferior attenuation artifact noted. Impression: 1. No ischemia demonstrated. 2. Left ventricular ejection fraction is 60 %. No focal wall motion abnormality. Primary Diagnostic Code: NO ALERT REQUIRED Primary Interpreting Staff: GADIEL MORELAND MD, RADIOLOGY STAFF PHYSICIAN (Sole Polisher) /GADIEL BAUMAN [facility] Encounter Notes: All associated encounter notes This section contains the clinical notes associated to the Encounter. Date/Time Encounter Note(s) Provider Source Mar 25, 2023 09:47 AM CARDIOLOGY CONSULT: LOCAL TITLE: CARDIAC CONSULT STANDARD TITLE: CARDIOLOGY CONSULT DATE OF NOTE: MAR 25, 2023@09:47 ENTRY DATE: MAR 25, 2023@09:47:11 AUTHOR: JOYCE RAE EXP COSIGNER: URGENCY: STATUS: COMPLETED CARDIAC CONSULT Has ADDENDA Reason for consult: chest pain HPI/ROS Mr. Apple is a 72 year-old referred for chest pain. Pertinent PMH includes newly diagnosed, persistent atrial fibrillation (on apixaban) s/p unsuccessful DCCV (01/22/23), HFpEF 55-60% (TTE 09/2022), HTN, DM2, severe COPD, morbid obesity, lipodermatosclerosis/bilat venous stasis edema, chronic back pain/lumbar spondylosis s/p laminectomy L2-4 (1999), DJD/OA bilateral hips mod/severe, bilateral foot pain and psoriasis. CARDIAC HISTORY: is known to cardiology. He was evaluated in the EP clinic for new onset of persistent Afib with failed DCCV and CHF clinic for HFpEF. On October 28-2022, he was hospitalized with sepsis secondary to cellulitis. He was also retaining fluid, COVID-positive, and had atrial fibrillation with rapid ventricular response (new). He was diuresed about 37 pounds during hospitalization. Echocardiogram in October 29, 2022 showed ejection fraction of 55 to 60% and grade 1 diastolic dysfunction. On December 12, 2022, he was seen in consultation with EP clinic for Afib. On January 22, 2023, he had an unsuccessful cardioversion. ZIO monitor showed atrial fibrillation with average heart rate of 98 bpm. Ventricular rate was greater than 110 bpm 15%. On March 17, 2023, he was seen in the EP clinic as a referral from CHF clinic for consideration of rhythm control. EKGs show poorly controlled ventricular rates in afib, Metoprolol was increased to 75 mg BID in hopes of better rate control. Echocardiogram was ordered to evaluate if he had LVH; if no LVH could consider admission for Dofetilide (normal creat, no QT prolongation or contraindicated rx). On December 27, 2022, was seen in the CHF clinic by Brigitte Bailey for diagnosis of heart failure with preserved ejection fraction. GDMT included Losartan, Metoprolol, Empagliflozin and Lasix. Plan was to control his heart rates and then work on optimizing his medication. He was seen in follow up on February 28, 2023, at that time he complained of new chest pain. He was referred to Cardiology consult clinic for evaluation of chest pain. Today, [place] arrives in an electric scooter. Physical activity is limited by severe hip and knee pain. Walks with a walker at home. Lives alone. He reports having chest pain about a month ago. Occurs in the evening when sitting in his chair. Described as sharp. Occurs a couple of times per week. Last 10 minutes or so. Stretching out helps relieve the pain. Located under the left breast. Breathing has been terrible. Has been taking Lasix 40 mg daily. When his feet start swelling he takes extra. He took 80 mg Lasix on Friday. He has home telemonitoring. Sleeps in a recliner. Has had occasional orthopnea. Denies fluttering or palpitations. Has LH when straining or coughing. Allergies: Patient has answered NKA Past Medical History - Computerized Problem list is source for: Active problems - Computerized Problem List is the source for the followin. Hypertension (SNOMED CT 31387676) 2. Tachycardia - EKG 04/24/[address] sinus [address] no acute ST or T wave changes 3. Chronic back pain (SNOMED CT 391288285) - s/p laminectomy L2-4 '00 - disability parking permit application completed 03/10/18 with exp date 03/2023 4. Other and unspecified alcohol dependence, unspecified drinking behavior 5. Tobacco use (SNOMED CT 512558821) - quit >25yr use 6. SCREEN - c scope - AAA due 65-75 - DEXA due >70 7. 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 SURGERY Hx - laminectomy L2-4 '00 - tonsillectomy - adenoidectomy - R tympanoplasty ' 9. LUNG LESION - incidental on c-xray 04/21/12 ER @[place] - CT chest 05/01/12 @[place] - [place] chest 05/25/12 @[place] lung nodules, new effusion, rib frx - [...] 12. Solitary nodule of lung (SNOMED CT 078076117) 13. Chronic obstructive lung disease - PFT done 08/28/15 @[facility] 14. Degenerative joint disease - CT 06/08/2016; bilateral hips mod/severe 15. Benign localized hyperplasia of prostate 16. Arthritis of right hip 17. Lumbar spondylosis 18. Bilateral foot pain 19. Psoriasis 20. Venous stasis edema of bilateral lower limbs 21. Lipodermatosclerosis 22. Diabetes Mellitus Type 2 (SCT 31813943) 23. Diastolic dysfunction 24. Paroxysmal atrial fibrillation 25. Long-term current use of anticoagulant Medications: Active Outpatient Medications (including Supplies): Active [...] NASAL DRIP 14) FUROSEMIDE 40MG TAB TAKE ONE TABLET BY MOUTH EVERY ACTIVE DAY AND TAKE ONE TABLET EVERY DAY NEEDED FOR WEIGHT GAIN OR WORSENING HEART FAILURE SYMPTOMS 15) HYDROPHILIC (EQV AQUAPHOR) TOP OINT APPLY SMALL ACTIVE AMOUNT TOPICALLY THREE TIMES A WEEK FOR DRY SKIN 16) KERLIX 4.5IN STERILE USE 1 BANDAGE TOPICALLY ACTIVE DIRECTED 17) LORATADINE 10MG TAB TAKE ONE TABLET BY MOUTH EVERY ACTIVE DAY NEEDED FOR ALLERGIES 18) LOSARTAN 50MG TAB TAKE ONE TABLET BY MOUTH EVERY ACTIVE (S) MORNING FOR HEART FAILURE 19) METOPROLOL SUCCINATE 100MG SA TAB TAKE ONE TABLET BY ACTIVE MOUTH TWICE A DAY FOR ATRIAL FIBRILLATION 20) MUPIROCIN 2% OINT APPLY THIN LAYER TOPICALLY TWICE A ACTIVE DAY *INDICATION: INFECTED FOOT ULCER* TO AFFECTED AREA PHARMACY CONFIRMATION #: [id number] APPLY TO OPEN SORES AFTER GENTLY WASHING WITH VASHE SOAKS OR DILUTE VINEGAR SOAKS. APPLY ADAPTIC DRESSING OVER AND WRAP WITH KERLIX 21) OLODATEROL/TIOTROP 2.5MCG/ACTUAT 60D INH INHALE 2 ACTIVE PUFFS BY INHALATION EVERY DAY TO PREVENT TROUBLE BREATHING 22) POTASSIUM CL 20MEQ SA TAB (DISPERSIBLE) TAKE ONE ACTIVE TABLET BY MOUTH EVERY DAY FOR POTASSIUM SUPPLEMENT 23) SEMAGLUTIDE 1MG/0.75ML INJ PEN 3ML INJECT 1MG UNDER ACTIVE THE SKIN EVERY WEEK FOR DIABETES 24) SKIN BARRIER FILM 3ML #3493 APPLY PREP TOPICALLY HOLD THREE TIMES A WEEK 25) SKIN PREP WIPE, S&N #[id number] USE 1 WIPE TOPICALLY ACTIVE THREE TIMES A WEEK REPLACES SKIN BARRIER FILM DUE TO BACKORDER 26) SPONGE,NONWOVEN 4IN X 4IN COVER DELORES#8896 USE 1 SPONGE ACTIVE TOPICALLY DIRECTED 27) TAPE,MICROPORE 1IN #1530-1 CUT AND APPLY TAPE ACTIVE TOPICALLY DIRECTED 28) TAZAROTENE 0.1% TOP CREAM APPLY THIN LAYER TOPICALLY ACTIVE AT BEDTIME TO THE FEET WITH THE 40% UREA CREAM, UNDER OCCLUSION DIRECTED 29) TRAZODONE HCL 50MG TAB TAKE ONE TABLET BY MOUTH AT ACTIVE BEDTIME FOR SLEEP 30) TRIAMCINOLONE ACETONIDE 0.1% OINT APPLY THIN LAYER ACTIVE (S) TOPICALLY TWICE A DAY AVOID FACE,GROIN & ARMPITS *FOR EXTERNAL USE ONLY APPLY TO INTACT SKIN ON LOWER LEGS AFTER DILUTE VINEGAR OR VASHE SOAKS. WRAP WITH KERLIX. 31) UREA 40% CREAM APPLY THIN LAYER TOPICALLY EVERY DAY ACTIVE DIRECTED FOR THICK SKIN 32) VANICREAM TOP CREAM APPLY THIN LAYER TOPICALLY EVERY ACTIVE DAY IDEALLY WITHIN 3 MINUTES AFTER BATH OR SHOWER. TO ALL AREAS OF SKIN FOR MOISTURIZER FOR DRY SKIN 33) VASHE WOUND THERAPY TOP SOLN APPLY DIRECTED ACTIVE TOPICALLY DIRECTED SOAK THE AFFECTED AREA FOR 5 MINUTES WITH THE VASHE-MOISTENED GAUZE, THEN USE THE SAME GAUZE TO GENTLY EXFOLIATE THE WOUND BASE. Active Non-VA Medications Status 1) Non-VA KETOCONAZOLE SHAMPOO 2%SHAMPOO TOPICALLY ACTIVE 2) Non-VA LIDOCAINE 5% PATCH 1 PATCH TOPICALLY ACTIVE 35 Total Medications REVIEW OF SYSTEMS: Constitutional: Weight stable, denies fatigue Eyes: Denies visual changes. Ear, nose, mouth, throat: No complaints. Cardiovascular: Chest pain as described in HPI. Denies palpitations, Respiratory: Shortness of breath/AMARAL as described in HPI. Denies cough, pleuritic pain, orthopnea or PND Gastrointestinal: Appetite good, denies heartburn and indigestion. Urinary: Denies incontinence, frequency, urgency, nocturia, pain, or discomfort. Skin: No rashes or lesions. Neurological: Denies lightheadedness or dizziness. Denies syncope or pre-syncope. Psychiatric: Denies memory loss or depression. Mood pleasant. Vital Signs: - Blood Pressure: 113/71 - Pulse: 106 - Oxygen sat: 93% EXAM: General: appears alert, oriented and cooperative. Neck: Jugular venous pressure: normal Lungs: Clear to auscultation bilaterally Abdomen: Abdomen soft, non-tender, bowel sounds + Cardiovascular: RRR. No murmurs, gallops or rubs. Extremities: No cyanosis, clubbing or edema are noted. Neuro: Alert and oriented Skin: Warm & dry Recent Available Lab Results: - CREATININE 0.9 (03/10/23) - UREA NITROGEN 15 (03/10/23) - SODIUM 139 (03/10/23) - CHLORIDE 107 (03/10/23) - POTASSIUM 4.0 (03/10/23) - CO2 23 (03/10/23) - GLUCOSE 115 H (03/10/23) - SLT - Lab Tests Selected Collection DT [...] 12:45 PLASMA BNP 47 pg/mL Ref: <=99 - TSH 1.00 (11/06/22) - HEMOGLOBIN A1C 6.0 (10/28/22) - INR 1.2 H PLASMA (01/22/23 10:52) 1.3 H PLASMA (10/28/22 23:06) Lipid Profile: - CHOLESTEROL 107 (10/29/22) - HDL 57 (10/29/22) - LDL CALCULATION 39 (10/29/22) - Collection DT Spec WBC HGB HCT PLT MCV NEUT LYMPHS 01/22/2023 10:52 BLOOD 9.21 15.1 46.7 262 94.3 11/27/2022 10:53 BLOOD 8.94 14.2 43.3 249 94.1 11/06/2022 05:30 BLOOD 10.75 14.4 43.4 310 93.3 DIAGNOSTICS/IMAGING/SCORING EK03/25/2023 1. Atrial fibrillation Echocardiogram: 10/30/2022 1. Technically difficult study with poor echo windows and limited information. 2. LV ejection fraction is 55-60%. The left ventricular wall motion is normal. Cannot assess diastolic function. Cannot assess LV size. 3. The right ventricular systolic function is normal. Cannot assess RV size. 4. Mild tricuspid regurgitation. 5. Cannot assess mitral, aortic and pulmonic valves. 7. No prior echo for comparison. GXT Stress Test: SII - Preeti Image Impression Date Procedure CPT Status Case # 03/25/2023 CARDIOVASCULAR STRESS TEST [id number] Pending 190 Nuclear Stress Imaging: SII - Preeti Image Impression Date Procedure CPT Status Case # 03/25/2023 CARDIOVASCULAR STRESS TEST [id number] Pending 190 03/25/2023 MYOCARDIAL PERFUSION [id number] Pending 188 (SPECT)-MULTIPLE Cardiac Angiogram: Selected Progress Notes No data available for: CARDIAC CATHETERIZATION CART PROCEDURE NOTE Impression: Cardiology was asked to see this 72 year-old patient for chest pain. ECG shows atrial fibrillation. Echocardiogram shows normal LV function w/EF 55-60%. NM Stress test shows no evidence of ischemia or infarction. #1 Atypical chest pain Nature of pain (not occurring during exertion, described as sharp, not substernal, improves with stretching) is not c/w angina. NM stress test is negative for ischemia or infarction. Although he is sedentary, he does do light activities such as dressing, showering and light household tasks. Given atypical nature of the chest pain and negative NM stress test, we do not recommend further ischemic work up at this time and the patient is agreeable to this plan. Today's consult and recommendations discussed with him in lay-terms and he is in agreement with the above plan. Patient's history, physical exam, laboratory/imaging findings were discussed and reviewed extensively with Dr. Aurelio Florian who agrees with my plan. Thank you for referring this to cardiology. I spent 40 minutes reviewing prior notes in CPRS, reviewing/interpreting laboratory testing, and imaging studies with attending staff. /mateo/ ANJALI MCINTOSH CARDIOLOGY NURSE PRACTITIONER Signed: 03/25/2023 15:08 03/26/2023 ADDENDUM STATUS: COMPLETED I evaluated this patient with the nurse practitioner and agree with the assessment and plan. Cardiology was asked to consult on this patient regarding chest pain. The pain is not typical for angina. Myocardial perfusion study was normal. Past medical history is significant for persistent atrial fibrillation status post failed cardioversion in January 2023, heart failure with preserved ejection fraction, hypertension, LVH, diabetes, severe COPD, morbid obesity. No further evaluation for chest pain is necessary. EP service is following for possible rhythm control strategy, initiation of dofetilide in the future. CHF service is following this patient for HFpEF and he is currently on good medical therapy for this. Thank you for referring this pt to the consult service. Please page me at if you would like to discuss this case further. Thank you. /mateo/ JAMES FLORIAN MD PHYSICIAN Signed: 03/26/2023 08:51 JOYCE RAE [facility]
--- OUTSIDE RECORDS SUMMARY | 2024-03-25 10:32 | XMS_ITS | Encounter Summary ---
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 Date/Time Encounter Type Encounter Description Reason Provider Source Apr 30, 2023 01:30 PM SELF CARE MNGMENT TRAINING WHEELCHAIR & ADVAN MOBILITY ICD-10-CM L89.40 Pressr ulc of contig site of back, buttock and hip, unsp BE [facility] Encounter Template Text not used by [place] Assessments - Encounter Diagnoses This section includes the primary and secondary diagnoses documented for the Encounter. Date/Time Primary/Secondary Diagnosis Diagnosis Name Provider Source Apr 30, 2023 02:27 PM PRIMARY Pressr ulc of contig site of back, buttock and hip, unsp stg HARDIK,BE [facility] Apr 30, 2023 02:27 PM SECONDARY Limitation of activities due to disability [facility] Plan of Treatment: Future Appointments (+ 6 months) and Future Tests (+/- 45 days) The Plan of Treatment section includes future care activities for the patient from [facility]. This section includes future appointments and future orders which are active, pending or scheduled. Future Appointments This section includes appointments that were scheduled to occur 6 months from the date of the Encounter, up to a maximum of 20 appointments. The data comes from all [place] treatment facilities. Appointment Date/Time Appointment Type Appointme nt Facility Name May 02, 2023 02:00 PM [facility] [place]IC[facility] [place] [facility] May 02, 2023 03:00 PM [facility] - [place]IC[facility] [place] [facility] May 09, 2023 01:30 PM AMBULATORY - NONE [facility] May 16, 2023 01:30 PM AMBULATORY - NONE [facility] Jun 05, 2023 01:30 PM AMBULATORY - NONE [facility] Jun 05, 2023 03:30 PM AMBULATORY - NONE [facility] Jun 09, 2023 07:00 AM AM[facility]ORY - NONE [place] [facility] Jul 02, 2023 01:30 PM [facility] [place]ICINE [place] [facility] Jul 02, 2023 02:30 PM [place] [place]IC[place] [facility] Jul 07, 2023 07:00 AM AM[facility]ORY - NONE [place] [facility] Jul 07, 2023 07:30 AM [facility]ORY [place]ICINE [place] [facility] Jul 07, 2023 08:00 AM AM[facility]ORY - SURGERY [place] [facility] Jul 07, 2023 09:00 AM [facility]ORY - [place]ICINE [place] [facility] Jul 07, 2023 10:15 AM [facility]ORY - NONE [place] [facility] Jul 07, 2023 10:30 AM [facility]ORY [place]ICINE [place] [facility] Jul 11, 2023 11:00 AM [facility]ORY - [facility]IC[facility] Aug 12, 2023 03:00 PM AMBULATORY - NONE [facility] Aug 13, 2023 10:30 AM [facility]ORY - [place]ICINE [place] [facility] Aug 13, 2023 11:30 AM [facility]ORY - [place]ICINE [place] [facility] Aug 18, 2023 02:00 PM AMBULATORY - REHAB MEDICIN E [facility] Lab Results: +/- 30 days of the encounter This section includes the Chemistry and Hematology Lab Results on record with [place] for the patient. Radiology Reports and Pathology Reports are provided separately, in subsequent sections. Lab Results This section contains the Chemistry/Hematology Results that were resulted 30 days before or 30 daysafter the date of the Encounter. Date/Time Source Result Type Result - Unit Interpretation Reference Range Comment May 16, 2023 01:14 PM [facility] BASIC METABOLIC PANEL+MG Specimen Type: PLASMA No comment entered. Ordering Provider: FLAQUITO VIRGEN Report Released Date/Time: May 06, 2023 09:43 AM Reporting Lab: [facility] [id number] Performing Lab: [facility] [id number] CREATININE 1.1 mg/dL 0.7-1.2 UREA NITROGEN 18 mg/dL 8-26 GLUCOSE 96 mg/dL 70-100 SODIUM 140 mmol/L 136-145 POTASSIUM 3.4 mmol/L L 3.5-5.1 CHLORIDE 101 mmol/L 98-107 CO2 27 mmol/L 22-29 CALCIUM 9.5 mg/dL 8.4-10.2 MAGNESIUM 2.2 mg/dL 1.6-2.6 ANION GAP 12 mmol/L 5-15 .CREAT EGFR(CKD-EPI ) 71 >60 May 02, 2023 12:55 PM [facility] BASIC METABOLIC PANEL+MG Specimen Type: PLASMA No comment entered. Ordering Provider: FLAQUITO VIRGEN Report Released Date/Time: Feb 28, 2023 03:02 PM Reporting Lab: [facility] [id number] Performing Lab: [facility] [id number] CREATININE 0.9 mg/dL 0.7-1.2 UREA NITROGEN 11 [...] Pain Height Weight Body Mass Index Source Apr 30, 2023 02:29 PM 96 F 95 /min 120/77 mm[Hg] 18 /min 92 % 388.3 lb 46 [facility] Social History: Smoking Status (Most current) and Tobacco Use (All prior to encounter date) This section includes the most current, and the historical, smoking and tobacco- related health factors from the [facility] where the Encounter took place. Current Smoking Status This section includes the most current smoking, or tobacco-related health factor, from the [facility] where the Encounter took place. Date/Time Current Smoking Status Comment Facil ity Dec 19, 2020 12:07 PM [place]-TOBACCO QUIT 5 TO < 15 YRS [facility] Tobacco Use History This section includes a history of the smoking, or tobacco-related health factors, that were collected on or before the date of the Encounter. The data comes from the [place] facility where the Encounter took place. Date/Time Smoking Status/Tobacco Use Comment F acility Dec 19, 2020 12:07 PM [place]-TOBACCO QUIT 5 TO < 15 YRS [facility] Aug 02, 2015 09:49 AM CURRENT TOBACCO USER [facility] Jun 06, 2014 08:51 AM CURRENT TOBACCO USER [facility] May 04, 2013 09:29 AM CURRENT TOBACCO USER [facility] Apr 24, 2012 07:40 AM CURRENT TOBACCO USER [facility] Advance Directives: All historical and current Section Date Range: From patient's date of to the date document was created. This section includes ALL of a patient's completed or amended [place] Advance and Rescinded Directives. The entries below indicate that a directive exists for the patient, but an actual copy is not included with this document. The data comes from all [facility]. Date Advance Directives Provider Source Jan 02, 2023 STATE-AUTHORIZED PORTABLE ORDERS [facility] Encounter Notes: All associated encounter notes This section contains the clinical notes associated to the Encounter. Date/Time Encounter Note(s) Provider Source Apr 30, 2023 01:34 PM OCCUPATIONAL THERAPY CONSULT: LOCAL TITLE: OCCUPATIONAL THERAPY CONSULT STANDARD TITLE: OCCUPATIONAL THERAPY CONSULT DATE OF NOTE: APR 30, 2023@13:34 ENTRY DATE: APR 30, 2023@13:35:10 AUTHOR: BE DYE EXP COSIGNER: URGENCY: STATUS: COMPLETED OCCUPATIONAL THERAPY PRESSURE MAPPING AND CUSHION EVALUATION Treatment: Eval & Treat Treatment Diagnosis: Pressure Ulcer of Contiguous site of Back, Buttock and Hip, unspecified Stage(ICD-10-CM L89.40) Referring Provider: GELACIO MICHEL Date of Initial: Feb 25, 2023 Precautions: Fall risk Pt seen on 04/30/2023 for: - 15 minutes OT evaluation (1 Unit) - 25 minutes wheelchair mgmt and training ( Units) Active problems - Computerized Problem List is the source for the followin. Hypertension (SNOMED CT 45742309) 2. Tachycardia - EKG 04/24/[address] or T wave changes 3. Chronic back pain (SNOMED CT 407590702) - s/p laminectomy L2-4 '00 - disability parking permit application completed 03/10/18 with exp date 03/2023 4. Other and unspecified alcohol dependence, unspecified drinking behavior 5. Tobacco use (SNOMED CT 384383793) - quit >25yr use 6. SCREEN - c scope - AAA due 65-75 - DEXA due >70 7. 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 SURGERY Hx - laminectomy L2-4 '00 - tonsillectomy - adenoidectomy - R tympanoplasty ' 9. LUNG LESION - incidental on c-Xray 04/21/12 ER @[facility] - CT chest 05/01/12 @[facility] - CT chest 05/25/12 @[facility] lung nodules, new effusion, rib fx - pulmonary nodule clinic referred 05/25/12 - pulmo 05/29/[address] effusion & nodule surveill - pulmo 09/19/13 per pulmo d/c monitor stable on CT 10. Family social history - f old age, hrt ds - m breast ca met to lung - 4 children healthy 11. Body mass index 40+ - severely obese 12. Solitary nodule of lung (SNOMED CT 884976903) 13. Chronic obstructive lung disease - PFT done 08/28/15 @[facility] 14. Degenerative joint disease - CT 06/08/2016; bilateral hips mod/severe 15. Benign localized hyperplasia of prostate 16. Arthritis of right hip 17. Lumbar spondylosis 18. Bilateral foot pain 19. Psoriasis 20. Venous stasis edema of bilateral lower limbs 21. Lipodermatosclerosis 22. Diabetes Mellitus Type 2 ([facility] [id number]) 23. Diastolic dysfunction 24. Paroxysmal atrial fibrillation 25. Long-term current use of anticoagulant The vet is a pleasant 72 y.o. male who has been referred to the seating clinic for pressure mapping and a new cushion. He arrives by himself on his 4- wheeled Sherita. Has a wound in crevice of left butt check and has some open areas on scrotum. Is also experiencing incontinence recently. Standard cushion was not effective due to: (Select All that Apply) a. Has Pressure Injury on area of contact with seating surface b. Increased risk of Pressure Injury due to prolonged sitting c. He is able to perform functional weight shift in sitting OBJECTIVE ADL's: Independent/Modified independent. Has bath aide 2x/week to assist with showers RN 3x/week for wound care. 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 Cognition: intact Falls: No Transfers: Independent Posture: WFL Does have significant postural asymmetries? No Skin Integrity: Has wounds on buttocks, LEs & feet Sensation: intact Pain: Yes, hip aches and buttocks is sore Measurements: Height: 77 Weight: 372 lbs. Casper Scale for Predicting Pressure Sore Risk: Sensory Perception: ___Completed limited (1) ___Very limited (2) ___Slightly limited (3) _X__No impairment (4) Moisture: ___Constantly moist (1) ___Often moist (2) _X__Occasionally moist (3) ___Rarely moist (4) Activity: ___Bedfast (1) ___Chairfast (2) _X__Walks occasionally (3) ___Walks frequently (4) Mobility: ___Completely immobile (1) _X__Very limited (2) ___Slightly limited (3) ___No limitations (4) Nutrition: ___Very poor (1) _X__Probably inadequate (2) ___Adequate (3) ___Excellent (4) Friction and Shear: ___Problem (1) _X__Potential problem (2) ___No apparent problem (3) Casper Score Scale: ___Very high risk (6-9) ___High risk (10-12) ___Moderate risk (13-14) _X__Mild risk (15-18) ___No risk (19-23) Source: Ermelinda [employer] Bertha Rivera, Copyrighted 1987. Reprinted with permission. All rights reserved. Cushion Choice: 4 Roho cushion single compartment Cushion meets veterans needs by: a) Reducing pressure over marcie prominences on seated surface b) Improving seating time Education provided for use and injury prevention Provided with inflation handout and instructions Provided with verbal instructions for use/care Provided with written instructions for use/care Provided with demonstration of how to inflate cushion and check for proper inflation. ASSESSMENT: Results of functional evaluation indicate patient will benefit from Roho cushion 22 wide x 20 deep x 4 tall Vet also requests an additional rear view mirror for his scooter for safety. He has to drive his scooter in a aubrie alongside the road as there are no sidewalks in his town. 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 He will benefit from a pill box to keep medications from rolling away and getting contaminated on the floor. Goals: - By end of first session vet will have appropriate recommendation for pressure relief cushion. - MET ORDERS PLACED FOR: 1) Roho cushion 22 wide x 20 deep x 4 tall 2) [employer] Mobility Rear view mirror for Scooter 3) Pill box PLAN: All needs addressed, all goals met. No further OT needs identified. D/C OT. PATIENT EDUCATION ON TREATMENT PLAN: Educated vet regarding consistency of using tilt for pressure relief 1-2 min every 30 min and inflate cushion and check for proper inflation.. Patient indicates readiness to learn, verbalizes understanding, agreement and satisfaction with the treatment plan. Denies further questions. OCCUPATIONAL THERAPY EVALUATION COMPLEXITY Identifying and reporting the complexity level of an evaluation focuses on the first three of these factors--profile and history, assessment and determination of deficits, and clinical decision making. These three factors [...] categories (physical, cognitive, or psychosocial skills). Physical: wounds, limitation of activity due to disability. MAGANA: 1-3 performance deficits = Low Complexity LEVEL OF CLINICAL DECISION MAKING Comorbidities affect occupational performance: Yes (moderate or high [...] to move to a higher level of evaluation, all three components must be of the higher level. LOW COMPLEXITY Brief history of medical/or therapy records relating to the presenting problem. An assessment(s) that identifies 1-3 performance deficits that result in activity limitation and/or participating restrictions. Includes analysis of the occupational profile, analysis of date from problem- focused assessment(s), and consideration of a limited number of treatment options. Patient presents with no comorbidities that affect occupational performance. Modification of tasks or assistance with assessment(s) is not necessary to enable completion of evaluation component. /mateo/ HENOK CASTRO/Ezequiel,ATP,SMS OCCUPATIONAL THERAPIST Signed: 04/30/2023 14:28 [facility]
--- OUTSIDE RECORDS SUMMARY | 2024-03-25 10:32 | XMS_ITS | Encounter Summary ---
Author Name [facility] [place] [facility] [place] [facility] [place] [facility] [place] Address [address] [place] [address] Care Team Providers Care Electronic Scale Subassembler Name Role Phone GELACIO MICHEL Primary Care [...] PART A Jul 21, 2014 PART A [id number] [phone] Miguelito CARRILLO PATIENT Selected Encounter This section includes the information on record at [place] for the Encounter. Date/Time Encounter Type Encounter Description Reason Provider Source Jul 02, 2023 02:30 PM OFFICE O/P EST MOD 30-39 MIN CARDIOLOGY ICD-10-CM I51.89 Other ill-defined heart diseases CLOVER BAILEY [facility] Encounter Template Text not used by [place] Assessments - Encounter Diagnoses This section includes the primary and secondary diagnoses documented for the Encounter. Date/Time Primary/Secondary Diagnosis Diagnosis Name Provider Source Jul 02, 2023 02:37 PM PRIMARY Other ill-defined heart diseases FLAQUITO BAILEY [facility] Jul 02, 2023 02:37 PM SECONDARY Essential (primary) hypertension FLAQUITO BAILEY [facility] Jul 02, 2023 02:37 PM SECONDARY Other persistent atrial fibrillation FLAQUITO BAILEY [facility] Plan of Treatment: Future Appointments (+ 6 months) and Future Tests (+/- 45 days) The Plan of Treatment section includes future care activities for the patient [facility] [place] [facility] This section includes future appointments and future orders which are active, pending or scheduled. Future Appointments This section includes appointments that were scheduled to occur 6 months from the date of the Encounter, up to a maximum of 20 appointments. The data comes from all [place] treatment facilities. Appointment Date/Time Appointment Type Appointme nt Facility Name Jul 07, 2023 07:00 AM [facility] Jul 07, 2023 07:30 AM [facility] Jul 07, 2023 08:00 AM AM[facility]ULAT[facility] - SURGERY [facility] Jul 07, 2023 09:00 AM [facility] Jul 07, 2023 10:15 AM [facility] Jul 07, 2023 10:30 AM [facility] Jul 11, 2023 11:00 AM [facility] Aug 12, 2023 03:00 PM [facility] - NONE [facility] Aug 13, 2023 10:30 [facility] Aug 13, 2023 11:30 [facility] Aug 18, 2023 02:00 PM AMBULATORY - REHAB MEDICIN [facility] Sep 16, 2023 03:00 PM AMBULATORY - NONE [facility] Sep 17, 2023 02:30 PM [place] [facility] Oct 07, 2023 12:15 PM [place] [facility] Oct 07, 2023 01:00 PM [place] [facility] Oct 07, 2023 02:00 PM [place] [facility] Oct 27, 2023 11:30 AM AMBULATORY - NONE [facility] Nov 05, 2023 01:30 PM AMBULATORY - NONE [facility] December 01, 2023 12:30 PM AMBULATORY - SURGERY [facility] December 07, 2023 07:00 AM [place]ORY [place] [facility] Active, Pending, and Scheduled Orders This section includes a listing of several types of active, pending, and scheduled orders, including clinic medications orders, diagnostic test orders, procedure orders and consult orders; where the start date of the order is 45 days before the date of the Encounter or 45 days after the date of theEncounter. The data comes from all [place] treatment facilities. Test Date/Time Test Type Test Details Facility Name Jul 09, 2023 04:05 PM Laboratory - Chemi stry Order BASIC METABOLIC PANEL+MG PLASMA WC ONCE [facility] Lab Results: +/- 30 days of the encounter This section includes the Chemistry and Hematology Lab Results on record with [place] for the patient. Radiology Reports and Pathology Reports are provided separately, in subsequent sections. Lab Results This section contains the Chemistry/Hematology Results that were resulted 30 days before or 30 daysafter the date of the Encounter. Date/Time Source Result Type Result - Unit Interpretation Reference Range Comment Jul 10, 2023 07:19 AM [facility] BNP Specimen Type: PLASMA No comment entered. Ordering Provider: ASHLEY VELARDE Report Released Date/Time: Jul 09, 2023 01:25 PM Reporting Lab: [facility] [phone] Performing Lab: [facility] [phone] BNP 25 pg/mL <99 Jul 10, 2023 07:19 AM [facility] BASIC METABOLIC PANEL+MG Specimen Type: PLASMA No comment entered. Ordering Provider: ASHLEY VELARDE Report Released Date/Time: Jul 09, 2023 01:25 PM Reporting Lab: [facility] [phone] Performing Lab: [facility] [phone] CREATININE 1.0 mg/dL 0.7-1.2 UREA NITROGEN 14 mg/dL 8-26 GLUCOSE 92 mg/dL 70-100 SODIUM 140 mmol/L 136-145 POTASSIUM 4.1 mmol/L 3.5-5.1 CHLORIDE 102 mmol/L 98-107 CO2 25 mmol/L 22-29 CALCIUM 9.3 mg/dL 8.4-10.2 MAGNESIUM 2.1 mg/dL 1.6-2.6 ANION GAP 13 mmol/L 5-15 .CREAT EGFR(CKD-EPI) 79 >60 Jul 09, 2023 01:54 PM [facility] BASIC METABOLIC PANEL+MG Specimen Type: PLASMA No comment entered. Ordering Provider: ASHLEY VELARDE Report Released Date/Time: Jul 08, 2023 02:49 PM Reporting Lab: [facility] [phone] Performing Lab: [facility] [phone] CREATININE 1.0 mg/dL 0.7-1.2 UREA NITROGEN 12 mg/dL 8-26 GLUCOSE 108 mg/dL H 70-100 SODIUM 141 mmol/L 136-145 POTASSIUM 4.4 mmol/L 3.5-5.1 CHLORIDE 102 mmol/L 98-107 CO2 31 mmol/L H 22-29 CALCIUM 9.7 mg/dL 8.4-10.2 MAGNESIUM 2.0 mg/dL 1.6-2.6 ANION GAP 8 mmol/L 5-15 .CREAT EGFR(CKD-EPI) 79 >60 Jul 09, 2023 07:16 AM [facility] BASIC METABOLIC PANEL+MG Specimen Type: PLASMA No comment entered. Ordering Provider: ASHLEY VELARDE Report Released Date/Time: Jul 08, 2023 07:58 AM Reporting Lab: [facility] [phone] Performing Lab: [facility] [phone] CREATININE 1.0 mg/dL 0.7-1.2 UREA NITROGEN 14 mg/dL 8-26 GLUCOSE 99 mg/dL 70-100 SODIUM 139 mmol/L 136-145 POTASSIUM 3.4 mmol/L L 3.5-5.1 CHLORIDE 102 mmol/L 98-107 CO2 26 mmol/L 22-29 CALCIUM 9.2 mg/dL 8.4-10.2 MAGNESIUM 2.0 mg/dL 1.6-2.6 ANION GAP 11 mmol/L 5-15 .CREAT EGFR(CKD-EPI) 79 >60 Jul 08, 2023 03:08 PM [facility] BASIC METABOLIC PANEL+MG Specimen Type: PLASMA No comment entered. Ordering Provider: ASHLEY VELARDE Report Released Date/Time: Jul 08, 2023 10:12 AM Reporting Lab: [facility] [phone] Performing Lab: [facility] [phone] CREATININE 1.1 mg/dL 0.7-1.2 UREA NITROGEN 12 mg/dL 8-26 GLUCOSE 108 mg/dL H 70-100 SODIUM 138 mmol/L 136-145 POTASSIUM 3.6 mmol/L 3.5-5.1 CHLORIDE 102 mmol/L 98-107 CO2 28 mmol/L 22-29 CALCIUM 9.3 mg/dL 8.4-10.2 MAGNESIUM 2.0 mg/dL 1.6-2.6 ANION GAP 8 mmol/L 5-15 .CREAT EGFR(CKD-EPI) 71 >60 Jul 08, 2023 07:17 AM [facility] ALBUMIN Specimen Type: PLASMA No comment entered. Ordering Provider: ASHLEY VELARDE Report Released Date/Time: Jul 07, 2023 01:58 PM Reporting Lab: [facility] [phone] Performing Lab: [facility] [phone] ALBUMIN 3.6 g/dL 3.5-5.2 Jul 08, 2023 07:17 AM [facility] BASIC METABOLIC PANEL+MG Specimen Type: PLASMA No comment entered. Ordering Provider: ASHLEY VELARDE Report Released Date/Time: Jul 07, 2023 01:58 PM Reporting Lab: [facility] [phone] Performing Lab: [facility] [phone] CREATININE 1.1 mg/dL 0.7-1.2 UREA NITROGEN 14 mg/dL 8-26 GLUCOSE 105 mg/dL H 70-100 SODIUM 137 mmol/L 136-145 POTASSIUM 3.0 mmol/L L 3.5-5.1 CHLORIDE 100 mmol/L 98-107 CO2 27 mmol/L 22-29 CALCIUM 9.0 mg/dL 8.4-10.2 MAGNESIUM 1.9 mg/dL 1.6-2.6 ANION GAP 10 mmol/L 5-15 .CREAT EGFR(CKD-EPI) 71 >60 Jul 07, 2023 04:43 PM [facility] FINGERSTICK GLUCOSE Specimen Type: BLOOD Comment: Save Result Ordering Provider: ETHAN MOSS Report Released Date/Time: Jul 08, 2023 10:19 AM Reporting Lab: [facility] [phone] Performing Lab: [facility] [phone] FINGERSTICK GLUCOSE 116 mg/dL 70-100 Jul 07, 2023 06:56 AM [facility] PROTHROMBIN TIME/INR Specimen Type: PLASMA No comment entered. Ordering Provider: HITESH HOLGUIN Report Released Date/Time: Jun 26, 2023 12:06 PM Reporting Lab: [facility] [phone] Performing Lab: [facility] [phone] .INR 1.3 H 0.8-1.1 .PT 15.1 s H 9.4-12.5 Jul 07, 2023 06:56 AM [facility] CBC Specimen Type: BLOOD No comment entered. Ordering Provider: HITESH HOLGUIN Report Released Date/Time: Jun 26, 2023 12:06 PM Reporting Lab: [facility] [phone] Performing Lab: [facility] [address] WBC 9.78 10*3/uL 4.0-11.0 RBC 5.08 10*6/uL 4.6-6.2 HGB 16.4 g/dL 13.5-17.9 HCT 48.1 41-54 MCV 94.7 fL 80-100 MCH 32.3 pg 27-33 MCHC 34.1 g/dL 32.0-37.5 PLT 244 10*3/uL 150-400 MPV 10.0 fL 7.4-10.4 RDW 12.7 11.5-14.5 Jul 07, 2023 06:56 AM [facility] BASIC METABOLIC PANEL+MG Specimen Type: PLASMA No comment entered. Ordering Provider: HITESH HOLGUIN Report Released Date/Time: Jun 26, 2023 11:50 AM Reporting Lab: [facility] [phone] Performing Lab: [facility] [phone] CREATININE 1.1 mg/dL 0.7-1.2 UREA NITROGEN 14 mg/dL 8-26 GLUCOSE 104 mg/dL H 70-100 SODIUM 137 mmol/L 136-145 POTASSIUM 3.3 mmol/L L 3.5-5.1 CHLORIDE 99 mmol/L 98-107 CO2 24 mmol/L 22-29 CALCIUM 9.5 mg/dL 8.4-10.2 MAGNESIUM 2.2 mg/dL 1.6-2.6 ANION GAP 14 mmol/L 5-15 .CREAT EGFR(CKD-EPI) 71 >60 Jul 02, 2023 12:10 PM [facility] BASIC METABOLIC PANEL+MG Specimen Type: PLASMA No comment entered. Ordering Provider: FLAQUITO BAILEY Report Released Date/Time: May 02, 2023 01:39 PM Reporting Lab: [facility] [phone] Performing Lab: [facility] [phone] CREATININE 1.1 mg/dL 0.7-1.2 UREA NITROGEN 16 mg/dL 8-26 GLUCOSE 101 mg/dL H 70-100 SODIUM 138 mmol/L 136-145 POTASSIUM 3.8 mmol/L 3.5-5.1 CHLORIDE 101 mmol/L 98-107 CO2 26 mmol/L 22-29 CALCIUM 9.4 mg/dL 8.4-10.2 MAGNESIUM 2.2 mg/dL 1.6-2.6 ANION GAP 11 mmol/L 5-15 .CREAT EGFR(CKD-EPI) 71 >60 Jun 05, 2023 01:33 PM [facility] BASIC METABOLIC PANEL+MG Specimen Type: PLASMA No comment entered. Ordering Provider: FLAQUITO BAILEY Report Released Date/Time: May 20, 2023 09:29 AM Reporting Lab: [facility] [phone] Performing Lab: [facility] [address] CREATININE 1.1 mg/dL 0.7-1.2 UREA NITROGEN 15 mg/dL 8-26 GLUCOSE 100 mg/dL 70-100 SODIUM 138 mmol/L 136-145 POTASSIUM 3.7 mmol/L 3.5-5.1 CHLORIDE 100 mmol/L 98-107 CO2 29 mmol/L 22-29 CALCIUM 9.2 mg/dL 8.4-10.2 MAGNESIUM 1.9 mg/dL 1.6-2.6 ANION GAP 9 mmol/L 5-15 .CREAT EGFR(CKD-EPI) 71 >60 Vital Signs: All taken on the encounter date This section contains inpatient and outpatient Vital Signs collected on the date of the Encounter. Date/Time Temperature Pulse Blood Pressure Respiratory Rate SP02 Pain Height Weight Body Mass Index Source Jul 02, 2023 01:54 PM 98 F 109 /min 100/68 mm[Hg] 16 /min 94 % 0 76 in 363.5 lb 44 [facility] Social History: Smoking Status (Most current) and Tobacco Use (All prior to encounter date) This section includes the most current, and the historical, smoking and tobacco- related health factors from the [place] facility where the Encounter took place. Current Smoking Status This section includes the most current smoking, or tobacco-related health factor, from the [place] facility where the Encounter took place. Date/Time Current Smoking Status Comment Tasha ity Dec 19, 2020 12:07 PM VA-TOBACCO FORMER USER [facility] Tobacco Use History This section includes a history of the smoking, or tobacco-related health factors, that were collected on or before the date of the Encounter. The data comes from the [place] facility where the Encounter took place. Date/Time Smoking Status/Tobacco Use Comment F acility Dec 19, 2020 12:07 PM VA-TOBACCO QUIT 5 TO < 15 YRS [facility] Aug 02, 2015 09:49 AM CURRENT TOBACCO USER [facility] Jun 06, 2014 08:51 AM CURRENT TOBACCO USER [facility] May 04, 2013 09:29 AM CURRENT TOBACCO USER [facility] Apr 24, 2012 07:40 AM CURRENT TOBACCO USER [facility] Advance Directives: All historical and current Section Date Range: From patient's date of to the date document was created. This section includes ALL of a patient's completed or amended [place] Advance and Rescinded Directives. The entries below indicate that a directive exists for the patient, but an actual copy is not included with this document. The data comes from all [facility]. Date Advance Directives Provider Source Jan 02, 2023 STATE-AUTHORIZED PORTABLE ORDERS [facility] Encounter Notes: All associated encounter notes This section contains the clinical notes associated to the Encounter. Date/Time Encounter Note(s) Provider Source Jul 02, 2023 02:20 PM CARDIOLOGY ATTENDING OUTPATIENT NOTE: LOCAL TITLE: CARDIOLOGY CLINIC NOTE STANDARD TITLE: CARDIOLOGY ATTENDING OUTPATIENT NOTE DATE OF NOTE: JUL 02, 2023@14:20 ENTRY DATE: JUL 02, 2023@14:20:50 AUTHOR: BRIGITTE BAILEY EXP COSIGNER: URGENCY: STATUS: COMPLETED Heart Failure Follow Up History of Present Illness: GILDA CARRILLO 72y/o male seen at [facility] heart failure clinic today for follow up. [...] an unsuccessful cardioversion on January 22, 2023. He is scheduled for dofetilide start on 07/07/2023. He was last seen in heart failure clinic on May 02 and furosemide was increased to 80 mg daily since he was using frequent prn furosemide. He feels better on this increased dose and has not used any as needed furosemide in the past 2 months. He has chronic shortness of breath with minimal activity with a history of COPD. He states that his inhaler helps with his breathing and coughing. He sleeps in a chair due to chronic right hip pain. He denies lightheadedness or abdominal fullness/bloating. He has occasional lower extremity edema but denies any worsening. His home weight has decreased about 10 pounds in the past 2 months which he attributes to better diet. Home weight is now 363-369 pounds. He is working on following a low [...] source for the followin. Hypertension (SNOMED CT 08720432) 2. Tachycardia - EKG 04/24/[address] acute [address] or T wave changes 3. Chronic back pain (SNOMED CT 244759398) - s/p laminectomy L2-4 '00 - disability parking permit application completed 03/10/18 with exp date 03/2023 4. Other and unspecified alcohol dependence, unspecified drinking behavior 5. Tobacco use (SNOMED CT 066319538) - quit >25yr use 6. SCREEN - c scope - AAA due 65-75 - DEXA due >70 7. 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 SURGERY Hx - laminectomy L2-4 00 - tonsilectomy - adenoidectomy - R tympanoplasty 9. LUNG LESION - incidental on c-xray 04/21/12 ER @[place] - [place] chest 05/01/12 @[place] chest 05/25/12 @[place] lung nodules, new effusion, rib frx - [...] 12. Solitary nodule of lung (SNOMED CT 637824537) 13. Chronic obstructive lung disease - PFT done 08/28/15 @[facility] 14. Degenerative joint disease - CT 06/08/2016; bilateral hips mod/severe 15. Benign localized hyperplasia of prostate 16. Arthritis of right hip 17. Lumbar spondylosis 18. Bilateral foot pain 19. Psoriasis 20. Venous stasis edema of bilateral lower limbs 21. Lipodermatosclerosis 22. Diabetes Mellitus Type 2 (SCT 87858577) 23. Diastolic dysfunction 24. Paroxysmal atrial fibrillation [...] ONE TABLET BY MOUTH EVERY 12 ACTIVE (S) HOURS TO TREAT AND/OR PREVENT BLOOD CLOTS [...] ACTIVE TOPICALLY THREE TIMES A WEEK 10) DRESSING,MEPILEX BORDER HEEL 8.7INX9.1IN APPLY 1 ACTIVE DRESSING TOPICALLY THREE TIMES WEEKLY 11) EMPAGLIFLOZIN 25MG TAB TAKE ONE-HALF TABLET BY MOUTH ACTIVE EVERY MORNING FOR HEART FAILURE 12) FLUTICASONE PROP 50MCG 120D NASAL INHL SPRAY 2 SPRAYS ACTIVE IN EACH NOSTRIL EVERY DAY FOR NASAL DRIP 13) FUROSEMIDE 40MG TAB TAKE TWO TABLETS BY MOUTH EVERY ACTIVE MORNING FOR EXCESS FLUID FOR WEIGHT GAIN OR WORSENING HEART FAILURE SYMPTOMS 14) HYDROPHILIC (EQV AQUAPHOR) TOP OINT APPLY SMALL ACTIVE AMOUNT TOPICALLY THREE TIMES A WEEK FOR DRY SKIN 15) KERLIX 4.5IN STERILE USE 1 BANDAGE TOPICALLY ACTIVE DIRECTED 16) LOSARTAN 50MG TAB TAKE ONE TABLET BY MOUTH EVERY ACTIVE MORNING FOR HEART FAILURE 17) METOPROLOL SUCCINATE 100MG SA TAB TAKE ONE TABLET BY ACTIVE MOUTH TWICE A DAY FOR ATRIAL FIBRILLATION 18) POTASSIUM CL 20MEQ SA TAB (DISPERSIBLE) TAKE ONE ACTIVE (S) TABLET BY MOUTH EVERY DAY FOR POTASSIUM SUPPLEMENT 19) SEMAGLUTIDE 1MG/0.75ML INJ PEN 3ML INJECT 1MG UNDER ACTIVE THE SKIN EVERY WEEK FOR DIABETES 20) SKIN PREP WIPE, S&N #[id number] USE 1 WIPE TOPICALLY ACTIVE THREE TIMES A WEEK REPLACES SKIN BARRIER FILM DUE TO BACKORDER 21) SPIRONOLACTONE 25MG TAB TAKE ONE TABLET BY MOUTH ACTIVE EVERY DAY FOR HEART FAILURE 22) TAZAROTENE 0.1% TOP CREAM APPLY THIN LAYER TOPICALLY ACTIVE AT BEDTIME TO THE FEET WITH THE 40% UREA CREAM, UNDER OCCLUSION DIRECTED 23) TRAZODONE HCL 50MG TAB TAKE ONE TABLET BY MOUTH AT ACTIVE BEDTIME FOR SLEEP 24) TRIAMCINOLONE ACETONIDE 0.1% OINT APPLY THIN LAYER ACTIVE TOPICALLY TWICE A DAY AVOID FACE,GROIN & ARMPITS *FOR EXTERNAL USE ONLY APPLY TO INTACT SKIN ON LOWER LEGS AFTER DILUTE VINEGAR OR VASHE SOAKS. WRAP WITH KERLIX. 25) UREA 40% CREAM APPLY THIN LAYER TOPICALLY EVERY DAY ACTIVE DIRECTED FOR THICK SKIN 26) VANICREAM TOP CREAM APPLY THIN LAYER TOPICALLY EVERY ACTIVE DAY IDEALLY WITHIN 3 MINUTES AFTER BATH OR SHOWER. TO ALL AREAS OF SKIN FOR MOISTURIZER FOR DRY SKIN Active Non-VA Medications Status 1) Non-VA KETOCONAZOLE SHAMPOO 2%SHAMPOO TOPICALLY ACTIVE 2) Non-VA LIDOCAINE 5% PATCH 1 PATCH TOPICALLY ACTIVE 28 Total Medications MEDICATION RECONCILIATION: The medication list above was reviewed with the patient/surrogate and if changes are indicated they are listed above. Vitals: Temperature: 98 F [36.7 C] (07/02/2023 13:54) Pulse: 109 (07/02/2023 13:54) Respirations: 16 (07/02/2023 13:54) Blood Pressure: 100/68 (07/02/2023 13:54) Pain: 0 (07/02/2023 13:54) RR: unlabored at rest O2 Sat:94% (07/02/2023 13:54) Weight: 363.5 lb [164.88 kg] (07/02/2023 13:54) Body Mass Index: 44.3 Measurement DT WEIGHT LB(KG)[BMI] 07/02/2023 13:54 363.5(164.88)[44*] 05/02/2023 13:12 379(171.91)[45*] 04/30/2023 14:29 388.3(176.13)[46*] PHYSICAL EXAM: General: Alert, cooperative, alert and oriented x3, in no acute distress HEENT: Atraumatic and normocephalic LUNGS: Lung sounds clear, wheezing throughout (chronic), normal expansion, respirations unlabored HEART: Irregular, S1, S2, no murmur, rub or gallop ABDOMEN: Obese, soft, nontender, nondistended, bowel sounds present EXTREMITIES: warm, trace edema bilateral lower legs, pulses present bilaterally PSYCHOLOGICAL: Normal affect LABS: ---- SODIUM 138 (07/02/23) POTASSIUM 3.8 (07/02/23) CHLORIDE 101 (07/02/23) CO2 26 (07/02/23) GLUCOSE 101 H (07/02/23) UREA NITROGEN 16 (07/02/23) CREATININE 1.1 (07/02/23) ANION GAP: EGFR (02/21) 08/02/21 @ 1412 83 CREATININE EGFR (CKD-EPI) 07/02/23 @ 1210 71 MAGNESIUM 2.2 (07/02/23) CALCIUM 9.4 (07/02/23) PO4____ CREATININE 1.1 PLASMA (07/02/23 12:10) 1.1 PLASMA (06/05/23 13:33) 1.1 PLASMA (05/16/23 13:14) SLT - Lab Tests Selected Collection DT [...] 14.4 43.4 310 93.3 Today's Labs: GLUCOSE: 101 H UREA NITROGEN: 16 CREATININE: 1.1 SODIUM: 138 POTASSIUM: 3.8 CHLORIDE: 101 CO2: 26 CALCIUM: 9.4 MAGNESIUM: 2.2 ANION GAP: 11 CREATININE EGFR (CKD-EPI): 71 GLUCOSE: 101 H UREA NITROGEN: 16 CREATININE: 1.1 SODIUM: 138 POTASSIUM: 3.8 CHLORIDE: 101 CO2: 26 CALCIUM: 9.4 MAGNESIUM: 2.2 ANION GAP: 11 CREATININE EGFR (CKD-EPI): 71 Assessment/Plan: # Heart failure: Heart failure with preserved ejection fraction. He has no symptoms of acute fluid retention on exam today. He is doing better on an increased dose of furosemide (increased in April 2023). - EF: 55 to 60% - Etiology: Hypertension, obesity, atrial fibrillation with rapid ventricular response - Stage: C - NYHA class: III -- ACEi/ARB/ARNI: Losartan 50 mg daily -- BB: Metoprolol succinate to 100 mg twice daily -- MRA: Not currently prescribed -- SGLT-2: Empagliflozin 12.5 mg daily -- Diuretic: Furosemide to 80 mg daily - Medications Optimized: yes, could consider adding spironolactone or changing losartan to sacubitril/valsartan in the future if blood pressure improves (100/68 today) - Last ischemic workup: Stress test March [...] rate was greater than 110 bpm 15%. Scheduled for dofetilide initiation on 07/07/2023. #Hypertension: Home blood pressure ranges from 100-110 systolic. Summary of Plan: - Continue current medications - He agrees to call if he uses prn furosemide more than once weekly (currently using no prn furosemide) - Echo on 07/07/23 Follow Up: --------- - Follow up in heart failure clinic in 3 months Assessment and plan discussed with in full detail with all questions answered. Total time spent in patient care was 35 minutes including chart review, diagnostic/testing review, patient interview/examination, counseling and documentation. Thank you for allowing me to participate in the care of GILDA CARRILLO. Please contact me with any questions or concerns: Brigitte Bailey NP [facility] Failure [facility], Department of Cardiology HF [place] [phone], Option 3 /es/ BRIGITTE BAILEY RN COMMUNITY Signed: 07/02/2023 14:37 BRIGITTE BAILEY [facility] Jul 02, 2023 01:55 PM INTERNAL MEDICINE OUTPATIENT NOTE: LOCAL TITLE: MEDICINE CLINIC NURSING NOTE STANDARD TITLE: INTERNAL MEDICINE OUTPATIENT NOTE DATE OF NOTE: JUL 02, 2023@13:55 ENTRY DATE: JUL 02, 2023@13:55:43 AUTHOR: MARSHA KOCH COSIGNER: URGENCY: STATUS: COMPLETED TYPE OF VISIT: Appointment Check In Type of appointment: In-person appointment REASON FOR VISIT: scheduled appointment ALLERGIES: Patient has answered NKA VITAL SIGNS: Blood Pressure: 100/68 (07/02/2023 13:54) Pulse: 109 (07/02/2023 13:54) Respiration: 16 (07/02/2023 13:54) Temperature: 98 F [36.7 C] (07/02/2023 13:54) Weight: 363.5 lb [164.88 kg] (07/02/2023 13:54) Height: 76 in [193.0 cm] (07/02/2023 13:54) BMI: 44.3 O2 Sat: 94% (07/02/2023 13:54) Pain: 0 (07/02/2023 13:54) Patient denies chest pain at this time. PAIN SCREEN: Patient is not having significant [...] TABLET BY MOUTH EVERY 12 HOURS ACTIVE (S) TO TREAT AND/OR PREVENT BLOOD CLOTS BRIEF,TRANQUILITY [...] AREA TOPICALLY ACTIVE THREE TIMES A WEEK DRESSING,MEPILEX BORDER HEEL 8.7INX9.1IN APPLY 1 DRESSING [...] ACTIVE TWICE A DAY FOR ATRIAL FIBRILLATION POTASSIUM CL 20MEQ SA TAB (DISPERSIBLE) TAKE ONE TABLET BY ACTIVE (S) MOUTH EVERY DAY FOR POTASSIUM SUPPLEMENT SEMAGLUTIDE 1MG/0.75ML INJ PEN 3ML INJECT 1MG UNDER THE ACTIVE SKIN EVERY WEEK FOR DIABETES SKIN PREP WIPE, S&N #[id number] USE 1 WIPE TOPICALLY THREE ACTIVE TIMES A WEEK REPLACES SKIN BARRIER FILM DUE TO BACKORDER SPIRONOLACTONE 25MG TAB TAKE ONE TABLET BY MOUTH EVERY DAY ACTIVE FOR HEART FAILURE TAZAROTENE 0.1% TOP CREAM [...] LIDOCAINE 5% PATCH 1 PATCH TOPICALLY ACTIVE Over the Counter/Herbal Medications: The patient denies taking any outside medications or herbals. /mateo/ STANFORD KOCH LPN Signed: 07/02/2023 13:56 SAMPSON KOCH [facility]
--- OUTSIDE RECORDS SUMMARY | 2024-03-25 10:32 | XMS_ITS | Encounter Summary ---
Author Name [facility] [place] [facility] [place] [facility] [place] Address [address] [place] [address] Care Team Providers Care Distribution Collection Operator Name Role Phone GELACIO MICHEL Primary [...] PART A Jul 21, 2014 PART A [id number] [phone] Miguelito CARRILLO PATIENT Selected Encounter This section includes the information on record at [place] for the Encounter. Date/Time Encounter Type Encounter Description Reason Pro vider Source Jul 10, 2023 09:18 AM Inpatient Visit CLINICAL PHARMACY [facility] Encounter Template Text not used by [place] Plan of Treatment: Future Appointments (+ 6 months) and Future Tests (+/- 45 days) The Plan of Treatment section includes future care activities for the patient from all [place] treatmentfacilities. This section includes future appointments and future orders which are active, pending or scheduled. Future Appointments This section includes appointments that were scheduled to occur 6 months from the date of the Encounter, up to a maximum of 20 appointments. The data comes from all [place] treatment facilities. Appointment Date/Time Appointment Type Appointme nt Facility Name Jul 11, 2023 11:00 AM [facility] Aug 12, 2023 03:00 PM AM[facility]ORY - NONE [facility] Aug 13, 2023 10:30 AM [facility] Aug 13, 2023 11:30 AM [facility] Aug 18, 2023 02:00 PM AMBULATORY - REHAB MEDICIN [facility] Sep 16, 2023 03:00 PM AMBULATORY - NONE [facility] Sep 17, 2023 02:30 PM [facility] Oct 07, 2023 12:15 PM [facility] Oct 07, 2023 01:00 PM [facility] Oct 07, 2023 02:00 PM [facility] Oct 27, 2023 11:30 AM [facility]ATORY - NONE [facility] Nov 05, 2023 01:30 PM AM[facility]ORY - NONE [facility] December 01, 2023 12:30 PM [facility] [place] [facility] December 07, 2023 07:00 AM [facility] Dec 25, 2023 02:20 PM [facility] [place] [facility] Dec 25, 2023 02:45 PM [facility] [place] [facility] Dec 30, 2023 01:30 PM [facility] Jan 06, 2024 12:30 PM [facility] Jan 06, 2024 01:00 PM [facility] Jan 06, 2024 02:00 PM AMBULATORY - MEDICINE [facility] Active, Pending, and Scheduled Orders This section includes a listing of several types of active, pending, and scheduled orders, including clinic medications orders, diagnostic test orders, procedure orders and consult orders; where the start date of the order is 45 days before the date of the Encounter or 45 days after the date of theEncounter. The data comes from all [facility]. Test Date/Time Test Type Test Details Facility Name Jul 09, 2023 04:05 PM Laboratory - Chemi stry Order BASIC METABOLIC PANEL+MG PLASMA WC ONCE [facility] Lab Results: +/- 30 days of the encounter This section includes the Chemistry and Hematology Lab Results on record with [place] for the patient. Radiology Reports and Pathology Reports are provided separately, in subsequent sections. Lab Results This section contains the Chemistry/Hematology Results that were resulted 30 days before or 30 daysafter the date of the Encounter. Date/Time Source Result Type Result - Unit Interpretation Reference Range Comment Jul 10, 2023 07:19 AM [facility] BNP Specimen Type: PLASMA No comment entered. Ordering Provider: ASHLEY VELARDE Report Released Date/Time: Jul 09, 2023 01:25 PM Reporting Lab: [facility] [id number] Performing Lab: [facility] [phone] BNP 25 pg/mL <99 Jul 10, 2023 07:19 AM [facility] BASIC METABOLIC PANEL+MG Specimen Type: PLASMA No comment entered. Ordering Provider: ASHLEY VELARDE Report Released Date/Time: Jul 09, 2023 01:25 PM Reporting Lab: [facility] [phone] Performing Lab: [facility] [phone] CREATININE 1.0 mg/dL 0.7-1.2 UREA NITROGEN 14 mg/dL 8-26 GLUCOSE 92 mg/dL 70-100 SODIUM 140 mmol/L 136-145 POTASSIUM 4.1 mmol/L 3.5-5.1 CHLORIDE 102 mmol/L 98-107 CO2 25 mmol/L 22-29 CALCIUM 9.3 mg/dL 8.4-10.2 MAGNESIUM 2.1 mg/dL 1.6-2.6 ANION GAP 13 mmol/L 5-15 .CREAT EGFR(CKD-EPI) 79 >60 Jul 09, 2023 01:54 PM [facility] BASIC METABOLIC PANEL+MG Specimen Type: PLASMA No comment entered. Ordering Provider: ASHLEY VELARDE Report Released Date/Time: Jul 08, 2023 02:49 PM Reporting Lab: [facility] [phone] Performing Lab: [facility] [phone] CREATININE 1.0 mg/dL 0.7-1.2 UREA NITROGEN 12 mg/dL 8-26 GLUCOSE 108 mg/dL H 70-100 SODIUM 141 mmol/L 136-145 POTASSIUM 4.4 mmol/L 3.5-5.1 CHLORIDE 102 mmol/L 98-107 CO2 31 mmol/L H 22-29 CALCIUM 9.7 mg/dL 8.4-10.2 MAGNESIUM 2.0 mg/dL 1.6-2.6 ANION GAP 8 mmol/L 5-15 .CREAT EGFR(CKD-EPI) 79 >60 Jul 09, 2023 07:16 AM [facility] BASIC METABOLIC PANEL+MG Specimen Type: PLASMA No comment entered. Ordering Provider: ASHLEY VELARDE Report Released Date/Time: Jul 08, 2023 07:58 AM Reporting Lab: [facility] [phone] Performing Lab: [facility] [phone] CREATININE 1.0 mg/dL 0.7-1.2 UREA NITROGEN 14 mg/dL 8-26 GLUCOSE 99 mg/dL 70-100 SODIUM 139 mmol/L 136-145 POTASSIUM 3.4 mmol/L L 3.5-5.1 CHLORIDE 102 mmol/L 98-107 CO2 26 mmol/L 22-29 CALCIUM 9.2 mg/dL 8.4-10.2 MAGNESIUM 2.0 mg/dL 1.6-2.6 ANION GAP 11 mmol/L 5-15 .CREAT EGFR(CKD-EPI) 79 >60 Jul 08, 2023 03:08 PM [facility] BASIC METABOLIC PANEL+MG Specimen Type: PLASMA No comment entered. Ordering Provider: ASHLEY VELARDE Report Released Date/Time: Jul 08, 2023 10:12 AM Reporting Lab: [facility] [phone] Performing Lab: [facility] [phone] CREATININE 1.1 mg/dL 0.7-1.2 UREA NITROGEN 12 mg/dL 8-26 GLUCOSE 108 mg/dL H 70-100 SODIUM 138 mmol/L 136-145 POTASSIUM 3.6 mmol/L 3.5-5.1 CHLORIDE 102 mmol/L 98-107 CO2 28 mmol/L 22-29 CALCIUM 9.3 mg/dL 8.4-10.2 MAGNESIUM 2.0 mg/dL 1.6-2.6 ANION GAP 8 mmol/L 5-15 .CREAT EGFR(CKD-EPI) 71 >60 Jul 08, 2023 07:17 AM [facility] ALBUMIN Specimen Type: PLASMA No comment entered. Ordering Provider: ASHLEY VELARDE Report Released Date/Time: Jul 07, 2023 01:58 PM Reporting Lab: [facility] [phone] Performing Lab: [facility] [phone] ALBUMIN 3.6 g/dL 3.5-5.2 Jul 08, 2023 07:17 AM [facility] BASIC METABOLIC PANEL+MG Specimen Type: PLASMA No comment entered. Ordering Provider: ASHLEY VELARDE Report Released Date/Time: Jul 07, 2023 01:58 PM Reporting Lab: [facility] [phone] Performing Lab: [facility] [phone] CREATININE 1.1 mg/dL 0.7-1.2 UREA NITROGEN 14 mg/dL 8-26 GLUCOSE 105 mg/dL H 70-100 SODIUM 137 mmol/L 136-145 POTASSIUM 3.0 mmol/L L 3.5-5.1 CHLORIDE 100 mmol/L 98-107 CO2 27 mmol/L 22-29 CALCIUM 9.0 mg/dL 8.4-10.2 MAGNESIUM 1.9 mg/dL 1.6-2.6 ANION GAP 10 mmol/L 5-15 .CREAT EGFR(CKD-EPI) 71 >60 Jul 07, 2023 04:43 PM [facility] FINGERSTICK GLUCOSE Specimen Type: BLOOD Comment: Save Result Ordering Provider: ETHAN MOSS Report Released Date/Time: Jul 08, 2023 10:19 AM Reporting Lab: [facility] [phone] Performing Lab: [facility] [phone] FINGERSTICK GLUCOSE 116 mg/dL 70-100 Jul 07, 2023 06:56 AM [facility] PROTHROMBIN TIME/INR Specimen Type: PLASMA No comment entered. Ordering Provider: HITESH HOLGUIN Report Released Date/Time: Jun 26, 2023 12:06 PM Reporting Lab: [facility] [phone] Performing Lab: [facility] [phone] .INR 1.3 H 0.8-1.1 .PT 15.1 s H 9.4-12.5 Jul 07, 2023 06:56 AM [facility] BASIC METABOLIC PANEL+MG Specimen Type: PLASMA No comment entered. Ordering Provider: HITESH HOLGUIN Report Released Date/Time: Jun 26, 2023 11:50 AM Reporting Lab: [facility] [phone] Performing Lab: [facility] [phone] CREATININE 1.1 mg/dL 0.7-1.2 UREA NITROGEN 14 mg/dL 8-26 GLUCOSE 104 mg/dL H 70-100 SODIUM 137 mmol/L 136-145 POTASSIUM 3.3 mmol/L L 3.5-5.1 CHLORIDE 99 mmol/L 98-107 CO2 24 mmol/L 22-29 CALCIUM 9.5 mg/dL 8.4-10.2 MAGNESIUM 2.2 mg/dL 1.6-2.6 ANION GAP 14 mmol/L 5-15 .CREAT EGFR(CKD-EPI) 71 >60 Jul 07, 2023 06:56 AM [facility] CBC Specimen Type: BLOOD No comment entered. Ordering Provider: HITESH HOLGUIN Report Released Date/Time: Jun 26, 2023 12:06 PM Reporting Lab: [facility] [phone] Performing Lab: [facility] [phone] WBC 9.78 10*3/uL 4.0-11.0 RBC 5.08 10*6/uL 4.6-6.2 HGB 16.4 g/dL 13.5-17.9 HCT 48.1 41-54 MCV 94.7 fL 80-100 MCH 32.3 pg 27-33 MCHC 34.1 g/dL 32.0-37.5 PLT 244 10*3/uL 150-400 MPV 10.0 fL 7.4-10.4 RDW 12.7 11.5-14.5 Jul 02, 2023 12:10 PM [facility] BASIC METABOLIC PANEL+MG Specimen Type: PLASMA No comment entered. Ordering Provider: FLAQUITO VIRGEN Report Released Date/Time: May 02, 2023 01:39 PM Reporting Lab: [facility] [phone] Performing Lab: [facility] [phone] CREATININE 1.1 mg/dL 0.7-1.2 UREA NITROGEN 16 [...] Height Weight Body Mass Index Source Jul 10, 2023 09:45 AM 1 [facility] Jul 10, 2023 08:46 AM 4 [facility] Jul 10, 2023 06:49 AM 1 [facility] Jul 10, 2023 02:08 AM 4 [facility] Social History: Smoking Status (Most current) and Tobacco Use (All prior to encounter date) This section includes the most current, and the historical, smoking and tobacco- related health factors from the [place] facility where the Encounter took place. Current Smoking Status This section includes the most current smoking, or tobacco-related health factor, from the [place] facility where the Encounter took place. Date/Time Current Smoking Status Comment Facil ity Dec 19, 2020 12:07 PM [place]-TOBACCO QUIT 5 TO < 15 YRS [facility] Tobacco Use History This section includes a history of the smoking, or tobacco-related health factors, that were collected on or before the date of the Encounter. The data comes from the [place] facility where the Encounter took place. Date/Time Smoking Status/Tobacco Use Comment F acamelia Dec 19, 2020 12:07 PM [place]-TOBAC[place] QUIT 5 TO < 15 YRS [facility] Aug 02, 2015 09:49 AM CURRENT TOBACCO USER [facility] Jun 06, 2014 08:51 AM CURRENT TOBACCO USER [facility] May 04, 2013 09:29 AM CURRENT TOBACCO USER [facility] Apr 24, 2012 07:40 AM CURRENT TOBACCO USER [facility] Advance Directives: All historical and current Section Date Range: From patient's date of to the date document was created. This section includes ALL of a patient's completed or amended [place] Advance and Rescinded Directives. The entries below indicate that a directive exists for the patient, but an actual copy is not included with this document. The data comes from all [place] facilities. Date Advance Directives Provider Source Jan 02, 2023 STATE-AUTHORIZED PORTABLE ORDERS NATALYA GonzalezPHOENIX Campo [facility] Encounter Notes: All associated encounter notes This section contains the clinical notes associated to the Encounter. Date/Time Encounter Note(s) Provider Source Jul 10, 2023 09:18 AM PHARMACY EDUCATION NOTE: LOCAL TITLE: EDUCATION PHARMACY MED INSTRUCTION/RECONCILIATION STANDARD TITLE: PHARMACY EDUCATION NOTE DATE OF NOTE: JUL 10, 2023@09:18 ENTRY DATE: JUL 10, 2023@09:18:37 AUTHOR: LUANNE WATTSIGNER: URGENCY: STATUS: COMPLETED MEDICATION DISCHARGE EDUCATION LEARNING NEEDS/OBJECTIVES Participant(s) indicates readiness to learn and has been instructed on indications, side effects, directions for use and given a list of medications. Participant(s) will receive medication information sheets for medications filled. Education included discussion of the following: NEW MEDICATIONS 1. Dofetilide. This is a heart rhythm medication to help keep you out of atrial fibrillation 2. Nystatin. This is a cream for rash/fungal infection CHANGED MEDICATION 1. Potassium. Your dose was INCREASED to 2 tablets twice daily STOPPED MEDICATION 1. Metoprolol Anticoagulation Medication Apixaban Tobacco Cessation Discharge Plan Not Applicable Active Outpatient Medications (including Supplies): Outpatient Medications Status 1) A & D [...] CAP TAKE ONE CAPSULE BY MOUTH TWICE HOLD A DAY FOR ATRIAL FIBRILLATION 11) DRESSING,MEPILEX [...] ACTIVE MORNING FOR HEART FAILURE 18) NYSTATIN 075321 UNT/GM CREAM APPLY THIN LAYER HOLD TOPICALLY TWICE A DAY FUNGAL INFECTION EXTERNAL USE ONLY APPLY TO PANNUS 19) POTASSIUM CL 20MEQ SA TAB (DISPERSIBLE) TAKE TWO HOLD TABLETS BY MOUTH TWICE A DAY FOR POTASSIUM SUPPLEMENT 20) SEMAGLUTIDE 1MG/0.75ML INJ PEN 3ML INJECT 1MG UNDER ACTIVE THE SKIN EVERY WEEK FOR DIABETES 21) SKIN PREP WIPE, S&N #[id number] USE 1 WIPE TOPICALLY ACTIVE THREE TIMES [...] 23IN X 36IN PLASTIC BACK USE CHUX HOLD DIRECTED 27) UREA 40% CREAM APPLY THIN LAYER TOPICALLY EVERY DAY ACTIVE DIRECTED FOR THICK SKIN 28) VANICREAM TOP CREAM APPLY THIN LAYER TOPICALLY EVERY ACTIVE DAY IDEALLY WITHIN 3 MINUTES AFTER BATH OR SHOWER. TO ALL AREAS OF SKIN FOR MOISTURIZER FOR DRY SKIN Non-VA Medications Status 1) Non-VA KETOCONAZOLE SHAMPOO 2%SHAMPOO TOPICALLY ACTIVE 2) Non-VA LIDOCAINE 5% PATCH 1 PATCH TOPICALLY ACTIVE 30 Total Medications PARTICIPANTS: Patient TEACHING STRATEGY: Face to Face, Medication information sheets and list of medications READINESS TO LEARN No barriers identified PATIENT/FAMILY RESPONSE (OUTCOME): Verbalizes critical information about the topic FOLLOW-UP RECOMMENDED: None needed /mateo/ LUANNE WATTS PHARMD,BCPS PHARMACIST Signed: 07/10/2023 09:42 LUANNE WATTS [facility]
--- OUTSIDE RECORDS SUMMARY | 2024-03-25 10:32 | XMS_ITS ---
[facility] Encounter Summary Created on: March 25, 2024 CARRILLOCAGILDARAQUEL TAYLOR : 1950 Sex: Male Author Name [facility] Address [address] [place] [address] Care Team Providers Care Box Maker Wood Name Role Phone GELACIO MIHCEL Primary Care Provider Unava ilable Insurance Providers: [...] PART A Jul 21, 2014 PART A [id number] [phone] Miguelito CARRILLO PATIENT Selected Encounter This section includes the information on record at [place] for the Encounter. Date/Time Encounter Type Encounter Description Reason Pro vider Source Jul 07, 2023 01:53 PM Inpatient Visit HOSPITALIZATION TEAM,CARDS TWO E Encounter Template Text not used by [place] Plan of Treatment: Future Appointments (+ 6 months) and Future Tests (+/- 45 days) The Plan of Treatment section includes future care activities for the patient from all [place] treatmentfacilities. This section includes future appointments and [...] 12, 2023 03:00 PM AMBULATORY - NONE [facility] Aug 13, 2023 10:30 [facility] Aug 13, 2023 11:30 [facility] Aug 18, 2023 02:00 PM AMBULATORY - REHAB MEDICIN E [facility] Sep 16, 2023 03:00 PM AMBULATORY - NONE [facility] Sep 17, 2023 02:30 [facility] Oct 07, 2023 12:15 [facility] Oct 07, 2023 01:00 PM [facility] Oct 07, 2023 02:00 PM [facility] Oct 27, 2023 11:30 AM AMBULATORY - NONE [facility] Nov 05, 2023 01:30 PM AMBULATORY - NONE [facility] December 01, 2023 12:30 [facility] 07, [facility]23 07:00 [facility] Dec 25, 2023 02:20 PM [facility] Dec 25, 2023 02:45 PM [facility] [place] Dec 30, 2023 01:30 PM AMBULATORY - SURGERY [facility] Jan 06, 2024 12:30 PM [facility] Jan 06, 2024 01:00 [facility] Jan 06, 2024 02:00 PM AMBULATORY - MEDICINE [facility] Active, Pending, and Scheduled Orders This section includes a listing of several types of active, pending, and scheduled orders, including clinic medications orders, diagnostic test orders, procedure orders and consult orders; where the start date of the order is 45 days before the date of the Encounter or 45 days after the date of theEncounter. The data comes from all [facility]. Test Date/Time Test Type Test Details Facility Name Jul 09, 2023 04:05 PM Laboratory - Chemi stry Order BASIC METABOLIC PANEL+MG PLASMA WC ONCE [facility] Lab Results: +/- 30 days [...] Range Comment Jul 10, 2023 07:19 AM [facility] BNP Specimen Type: PLASMA No comment entered. Ordering Provider: ASHLEY VELARDE Report Released Date/Time: Jul 09, 2023 01:25 PM Reporting Lab: [facility] [phone] Performing Lab: [facility] [phone] BNP 25 pg/mL <99 Jul 10, 2023 07:19 AM [facility] BASIC METABOLIC PANEL+MG Specimen Type: PLASMA No comment entered. Ordering Provider: ASHLEY VELARDE Report Released Date/Time: Jul 09, 2023 01:25 PM Reporting Lab: [facility] [phone] Performing Lab: [facility] [phone] CREATININE 1.0 mg/dL 0.7-1.2 UREA NITROGEN 14 mg/dL 8-26 GLUCOSE 92 mg/dL 70-100 SODIUM 140 mmol/L 136-145 POTASSIUM 4.1 mmol/L 3.5-5.1 CHLORIDE 102 mmol/L 98-107 CO2 25 mmol/L 22-29 CALCIUM 9.3 mg/dL 8.4-10.2 MAGNESIUM 2.1 mg/dL 1.6-2.6 ANION GAP 13 mmol/L 5-15 .CREAT EGFR(CKD-EPI) 79 >60 Jul 09, 2023 01:54 PM [facility] BASIC METABOLIC PANEL+MG Specimen Type: PLASMA No comment entered. Ordering Provider: ASHLEY VELARDE Report Released Date/Time: Jul 08, 2023 02:49 PM Reporting Lab: [facility] [phone] Performing Lab: [facility] [address] CREATININE 1.0 mg/dL 0.7-1.2 UREA NITROGEN 12 mg/dL 8-26 GLUCOSE 108 mg/dL H 70-100 SODIUM 141 mmol/L 136-145 POTASSIUM 4.4 mmol/L 3.5-5.1 CHLORIDE 102 mmol/L 98-107 CO2 31 mmol/L H 22-29 CALCIUM 9.7 mg/dL 8.4-10.2 MAGNESIUM 2.0 mg/dL 1.6-2.6 ANION GAP 8 mmol/L 5-15 .CREAT EGFR(CKD-EPI) 79 >60 Jul 09, 2023 07:16 AM [facility] BASIC METABOLIC PANEL+MG Specimen Type: PLASMA No comment entered. Ordering Provider: ASHLEY VELARDE Report Released Date/Time: Jul 08, 2023 07:58 AM Reporting Lab: [facility] [address] Performing Lab: [facility] [address] CREATININE 1.0 mg/dL 0.7-1.2 UREA NITROGEN 14 mg/dL 8-26 GLUCOSE 99 mg/dL 70-100 SODIUM 139 mmol/L 136-145 POTASSIUM 3.4 mmol/L L 3.5-5.1 CHLORIDE 102 mmol/L 98-107 CO2 26 mmol/L 22-29 CALCIUM 9.2 mg/dL 8.4-10.2 MAGNESIUM 2.0 mg/dL 1.6-2.6 ANION GAP 11 mmol/L 5-15 .CREAT EGFR(CKD-EPI) 79 >60 Jul 08, 2023 03:08 PM [facility] BASIC METABOLIC PANEL+MG Specimen Type: PLASMA No comment entered. Ordering Provider: ASHLEY VELARDE Report Released Date/Time: Jul 08, 2023 10:12 AM Reporting Lab: [facility] [phone] Performing Lab: [facility] [address] CREATININE 1.1 mg/dL 0.7-1.2 UREA NITROGEN 12 mg/dL 8-26 GLUCOSE 108 mg/dL H 70-100 SODIUM 138 mmol/L 136-145 POTASSIUM 3.6 mmol/L 3.5-5.1 CHLORIDE 102 mmol/L 98-107 CO2 28 mmol/L 22-29 CALCIUM 9.3 mg/dL 8.4-10.2 MAGNESIUM 2.0 mg/dL 1.6-2.6 ANION GAP 8 mmol/L 5-15 .CREAT EGFR(CKD-EPI) 71 >60 Jul 08, 2023 07:17 AM [facility] ALBUMIN Specimen Type: PLASMA No comment entered. Ordering Provider: ASHLEY VELARDE Report Released Date/Time: Jul 07, 2023 01:58 PM Reporting Lab: [facility] [phone] Performing Lab: [facility] [address] ALBUMIN 3.6 g/dL 3.5-5.2 Jul 08, 2023 07:17 AM [facility] BASIC METABOLIC PANEL+MG Specimen Type: PLASMA No comment entered. Ordering Provider: ASHLEY VELARDE Report Released Date/Time: Jul 07, 2023 01:58 PM Reporting Lab: [facility] [address] Performing Lab: [facility] [address] CREATININE 1.1 mg/dL 0.7-1.2 UREA NITROGEN 14 mg/dL 8-26 GLUCOSE 105 mg/dL H 70-100 SODIUM 137 mmol/L 136-145 POTASSIUM 3.0 mmol/L L 3.5-5.1 CHLORIDE 100 mmol/L 98-107 CO2 27 mmol/L 22-29 CALCIUM 9.0 mg/dL 8.4-10.2 MAGNESIUM 1.9 mg/dL 1.6-2.6 ANION GAP 10 mmol/L 5-15 .CREAT EGFR(CKD-EPI) 71 >60 Jul 07, 2023 04:43 PM [facility] FINGERSTICK GLUCOSE Specimen Type: BLOOD Comment: Save Result Ordering Provider: ETHAN MOSS Report Released Date/Time: Jul 08, 2023 10:19 AM Reporting Lab: [facility] [phone] Performing Lab: [facility] [address] FINGERSTICK GLUCOSE 116 mg/dL 70-100 Jul 07, 2023 06:56 AM [facility] PROTHROMBIN TIME/INR Specimen Type: PLASMA No comment entered. Ordering Provider: HITESH HOLGUIN Report Released Date/Time: Jun 26, 2023 12:06 PM Reporting Lab: [facility] [address] Performing Lab: [facility] [address] .INR 1.3 H 0.8-1.1 .PT 15.1 s H 9.4-12.5 Jul 07, 2023 06:56 AM [facility] CBC Specimen Type: BLOOD No comment entered. Ordering Provider: HITESH HOLGUIN Report Released Date/Time: Jun 26, 2023 12:06 PM Reporting Lab: [facility] [address] Performing Lab: [facility] [address] WBC 9.78 10*3/uL 4.0-11.0 RBC 5.08 10*6/uL 4.6-6.2 HGB 16.4 g/dL 13.5-17.9 HCT 48.1 41-54 MCV 94.7 fL 80-100 MCH 32.3 pg 27-33 MCHC 34.1 g/dL 32.0-37.5 PLT 244 10*3/uL 150-400 MPV 10.0 fL 7.4-10.4 RDW 12.7 11.5-14.5 Jul 07, 2023 06:56 AM [facility] BASIC METABOLIC PANEL+MG Specimen Type: PLASMA No comment entered. Ordering Provider: HITESH HOLGUIN Report Released Date/Time: Jun 26, 2023 11:50 AM Reporting Lab: [facility] [address] Performing Lab: [facility] [address] CREATININE 1.1 mg/dL 0.7-1.2 UREA NITROGEN 14 mg/dL 8-26 GLUCOSE 104 mg/dL H 70-100 SODIUM 137 mmol/L 136-145 POTASSIUM 3.3 mmol/L L 3.5-5.1 CHLORIDE 99 mmol/L 98-107 CO2 24 mmol/L 22-29 CALCIUM 9.5 mg/dL 8.4-10.2 MAGNESIUM 2.2 mg/dL 1.6-2.6 ANION GAP 14 mmol/L 5-15 .CREAT EGFR(CKD-EPI) 71 >60 Jul 02, 2023 12:10 PM [facility] BASIC METABOLIC PANEL+MG Specimen Type: PLASMA No comment entered. Ordering Provider: FLAQUITO VIRGEN Report Released Date/Time: May 02, 2023 01:39 PM Reporting Lab: [facility] [address] Performing Lab: [facility] [address] CREATININE 1.1 mg/dL 0.7-1.2 UREA NITROGEN 16 [...] Source Jul 07, 2023 07:50 PM 3 [facility] Jul 07, 2023 06:53 PM 4 [facility] Jul 07, 2023 02:52 PM 3 [facility] Jul 07, 2023 11:49 AM 96 /min 119/85 mm[Hg] 93 % [facility] Jul 07, 2023 11:36 AM 127 /min 79 % [facility] Social History: Smoking Status (Most current) and Tobacco Use (All prior to encounter date) This section includes the most current, and the historical, smoking and tobacco- related health factors from the [place] facility where the Encounter took place. Current Smoking Status This section includes the most current smoking, or tobacco-related health factor, from the [place] facility where the Encounter took place. Date/Time Current Smoking Status Comment Tasha woods Dec 19, 2020 12:07 PM VA-TOBACCO FORMER USER [facility] Tobacco Use History This section includes a history of the smoking, or tobacco-related health factors, that were collected on or before the date of the Encounter. The data comes from the [place] facility where the Encounter took place. Date/Time Smoking Status/Tobacco Use Comment F wendi Dec 19, 2020 12:07 PM VA-TOBACCO QUIT 5 TO < 15 YRS [facility] Aug 02, 2015 09:49 AM CURRENT TOBACCO USER [facility] Jun 06, 2014 08:51 AM CURRENT TOBACCO USER [facility] May 04, 2013 09:29 AM CURRENT TOBACCO USER [facility] Apr 24, 2012 07:40 AM CURRENT TOBACCO USER [facility] Advance Directives: All historical and current Section Date Range: From patient's date of to the date document was created. This section includes ALL of a patient's completed or amended [place] Advance and Rescinded Directives. The entries below indicate that a directive exists for the patient, but an actual copy is not included with this document. The data comes from all [place] facilities. Date Advance Directives Provider Source Jan 02, 2023 STATE-AUTHORIZED PORTABLE ORDERS [facility]
--- OUTSIDE RECORDS SUMMARY | 2024-03-25 10:32 | XMS_ITS | Encounter Summary ---
Author Name [facility] Organization [facility] Address [address] [place] [address] Care Team Providers Care Production Operations Engineer Name Role Phone GELACIO MICHEL Primary [...] PART A Jul 21, 2014 PART A [id number] [phone] Miguelito CARRILLO PATIENT Selected Encounter This section includes the information on record at [place] for the Encounter. Date/Time Encounter Type Encounter Description Reason Pro vider Source Jul 07, 2023 10:15 AM Outpatient Encounter ADMIN PAT ACTIVTIES (MASNONCT) IHE Encounter Template Text not used by [place] Plan of Treatment: Future Appointments (+ 6 months) and Future Tests (+/- 45 days) The Plan of Treatment section includes future care activities for the patient from all [place] treatmentfacilities. This section includes future appointments and future orders which are active, pending or scheduled. Future Appointments This section includes appointments that were scheduled to occur 6 months from the date of the Encounter, up to a maximum of 20 appointments. The data comes from all [facility] treatment facilities. Appointment Date/Time Appointment Type Appointme nt Facility Name Jul 11, 2023 11:00 AM AMBULATORY - [facility]ICINE [facility] Aug 12, 2023 03:00 PM AMBULATORY - NONE [facility] Aug 13, 2023 10:30 AM AMBULATORY - MEDICINE [facility] Aug 13, 2023 11:30 AM AMBULATORY - MEDICINE [facility] Aug 18, 2023 02:00 PM AMBULATORY - [facility]HAB [facility]IC[facility] Sep 16, 2023 03:00 PM AMBULATORY - NONE [facility] Sep 17, 2023 02:30 PM AMBULATORY - MEDICINE [facility] Oct 07, 2023 12:15 PM AMBULATORY - MEDICINE [facility] Oct 07, 2023 01:00 PM AMBULATORY - MEDICINE [facility] Oct 07, 2023 02:00 PM AMBULATORY - MEDICINE [facility] Oct 27, 2023 11:30 AM AMBULATORY - NONE [facility] Nov 05, 2023 01:30 PM AMBULATORY - NONE [facility] December 01, 2023 12:30 PM AMBULATORY - SURGERY [facility] December 07, 2023 07:00 AM AMBULATORY - NONE [facility] Dec 25, 2023 02:20 PM AMBULATORY - SURGERY [facility] Dec 25, 2023 02:45 PM AMBULATORY - SURGERY [facility] Dec 30, 2023 01:30 PM AMBULATORY - SURGERY [facility] Jan 06, 2024 12:30 PM AMBULATORY - MEDICINE [facility] Jan 06, 2024 01:00 PM AMBULATORY - MEDICINE [facility] Jan 06, 2024 02:00 PM AMBULATORY - MEDICINE [facility] Active, Pending, and Scheduled Orders This section includes a listing of several types of active, pending, and scheduled orders, including clinic medications orders, diagnostic test orders, procedure orders and consult orders; where the start date of the order is 45 days before the date of the Encounter or 45 days after the date of theEncounter. The data comes from all [facility]. Test Date/Time Test Type Test Details Facility Name Jul 09, 2023 04:05 PM Laboratory - Chemi stry Order BASIC METABOLIC PANEL+MG PLASMA WC ONCE [facility] Lab Results: +/- 30 days of the encounter This section includes the Chemistry and Hematology Lab Results on record with [place] for the patient. Radiology Reports and Pathology Reports are provided separately, in subsequent sections. Lab Results This section contains the Chemistry/Hematology Results that were resulted 30 days before or 30 daysafter the date of the Encounter. Date/Time Source Result Type Result - Unit Interpretation Reference Range Comment Jul 10, 2023 07:19 AM [facility] BNP Specimen Type: PLASMA No comment entered. Ordering Provider: ASHLEY VELARDE Report Released Date/Time: Jul 09, 2023 01:25 PM Reporting Lab: [facility] [id number] Performing Lab: [facility] [phone] BNP 25 pg/mL <99 Jul 10, 2023 07:19 AM [facility] BASIC METABOLIC PANEL+MG Specimen Type: PLASMA No comment entered. Ordering Provider: ASHLEY VELARDE Report Released Date/Time: Jul 09, 2023 01:25 PM Reporting Lab: [facility] [phone] Performing Lab: [facility] [phone] CREATININE 1.0 mg/dL 0.7-1.2 UREA NITROGEN 14 mg/dL 8-26 GLUCOSE 92 mg/dL 70-100 SODIUM 140 mmol/L 136-145 POTASSIUM 4.1 mmol/L 3.5-5.1 CHLORIDE 102 mmol/L 98-107 CO2 25 mmol/L 22-29 CALCIUM 9.3 mg/dL 8.4-10.2 MAGNESIUM 2.1 mg/dL 1.6-2.6 ANION GAP 13 mmol/L 5-15 .CREAT EGFR(CKD-EPI) 79 >60 Jul 09, 2023 01:54 PM [facility] BASIC METABOLIC PANEL+MG Specimen Type: PLASMA No comment entered. Ordering Provider: ASHLEY VELARDE Report Released Date/Time: Jul 08, 2023 02:49 PM Reporting Lab: [facility] [id number] Performing Lab: [facility] [phone] CREATININE 1.0 mg/dL 0.7-1.2 UREA NITROGEN 12 mg/dL 8-26 GLUCOSE 108 mg/dL H 70-100 SODIUM 141 mmol/L 136-145 POTASSIUM 4.4 mmol/L 3.5-5.1 CHLORIDE 102 mmol/L 98-107 CO2 31 mmol/L H 22-29 CALCIUM 9.7 mg/dL 8.4-10.2 MAGNESIUM 2.0 mg/dL 1.6-2.6 ANION GAP 8 mmol/L 5-15 .CREAT EGFR(CKD-EPI) 79 >60 Jul 09, 2023 07:16 AM [facility] BASIC METABOLIC PANEL+MG Specimen Type: PLASMA No comment entered. Ordering Provider: ASHLEY VELARDE Report Released Date/Time: Jul 08, 2023 07:58 AM Reporting Lab: [facility] [phone] Performing Lab: [facility] [phone] CREATININE 1.0 mg/dL 0.7-1.2 UREA NITROGEN 14 mg/dL 8-26 GLUCOSE 99 mg/dL 70-100 SODIUM 139 mmol/L 136-145 POTASSIUM 3.4 mmol/L L 3.5-5.1 CHLORIDE 102 mmol/L 98-107 CO2 26 mmol/L 22-29 CALCIUM 9.2 mg/dL 8.4-10.2 MAGNESIUM 2.0 mg/dL 1.6-2.6 ANION GAP 11 mmol/L 5-15 .CREAT EGFR(CKD-EPI) 79 >60 Jul 08, 2023 03:08 PM [facility] BASIC METABOLIC PANEL+MG Specimen Type: PLASMA No comment entered. Ordering Provider: ASHLEY VELARDE Report Released Date/Time: Jul 08, 2023 10:12 AM Reporting Lab: [facility] [phone] Performing Lab: [facility] [phone] CREATININE 1.1 mg/dL 0.7-1.2 UREA NITROGEN 12 mg/dL 8-26 GLUCOSE 108 mg/dL H 70-100 SODIUM 138 mmol/L 136-145 POTASSIUM 3.6 mmol/L 3.5-5.1 CHLORIDE 102 mmol/L 98-107 CO2 28 mmol/L 22-29 CALCIUM 9.3 mg/dL 8.4-10.2 MAGNESIUM 2.0 mg/dL 1.6-2.6 ANION GAP 8 mmol/L 5-15 .CREAT EGFR(CKD-EPI) 71 >60 Jul 08, 2023 07:17 AM [facility] ALBUMIN Specimen Type: PLASMA No comment entered. Ordering Provider: ASHLEY VELARDE Report Released Date/Time: Jul 07, 2023 01:58 PM Reporting Lab: [facility] [phone] Performing Lab: [facility] [phone] ALBUMIN 3.6 g/dL 3.5-5.2 Jul 08, 2023 07:17 AM [facility] BASIC METABOLIC PANEL+MG Specimen Type: PLASMA No comment entered. Ordering Provider: ASHLEY VELARDE Report Released Date/Time: Jul 07, 2023 01:58 PM Reporting Lab: [facility] [phone] Performing Lab: [facility] [phone] CREATININE 1.1 mg/dL 0.7-1.2 UREA NITROGEN 14 mg/dL 8-26 GLUCOSE 105 mg/dL H 70-100 SODIUM 137 mmol/L 136-145 POTASSIUM 3.0 mmol/L L 3.5-5.1 CHLORIDE 100 mmol/L 98-107 CO2 27 mmol/L 22-29 CALCIUM 9.0 mg/dL 8.4-10.2 MAGNESIUM 1.9 mg/dL 1.6-2.6 ANION GAP 10 mmol/L 5-15 .CREAT EGFR(CKD-EPI) 71 >60 Jul 07, 2023 04:43 PM [facility] FINGERSTICK GLUCOSE Specimen Type: BLOOD Comment: Save Result Ordering Provider: ETHAN MOSS Report Released Date/Time: Jul 08, 2023 10:19 AM Reporting Lab: [facility] [phone] Performing Lab: [facility] [phone] FINGERSTICK GLUCOSE 116 mg/dL 70-100 Jul 07, 2023 06:56 AM [facility] PROTHROMBIN TIME/INR Specimen Type: PLASMA No comment entered. Ordering Provider: HITESH HOLGUIN Report Released Date/Time: Jun 26, 2023 12:06 PM Reporting Lab: [facility] [phone] Performing Lab: [facility] [phone] .INR 1.3 H 0.8-1.1 .PT 15.1 s H 9.4-12.5 Jul 07, 2023 06:56 AM [facility] BASIC METABOLIC PANEL+MG Specimen Type: PLASMA No comment entered. Ordering Provider: HITESH HOLGUIN Report Released Date/Time: Jun 26, 2023 11:50 AM Reporting Lab: [facility] [phone] Performing Lab: [facility] [phone] CREATININE 1.1 mg/dL 0.7-1.2 UREA NITROGEN 14 mg/dL 8-26 GLUCOSE 104 mg/dL H 70-100 SODIUM 137 mmol/L 136-145 POTASSIUM 3.3 mmol/L L 3.5-5.1 CHLORIDE 99 mmol/L 98-107 CO2 24 mmol/L 22-29 CALCIUM 9.5 mg/dL 8.4-10.2 MAGNESIUM 2.2 mg/dL 1.6-2.6 ANION GAP 14 mmol/L 5-15 .CREAT EGFR(CKD-EPI) 71 >60 Jul 07, 2023 06:56 AM [facility] CBC Specimen Type: BLOOD No comment entered. Ordering Provider: HITESH HOLGUIN Report Released Date/Time: Jun 26, 2023 12:06 PM Reporting Lab: [facility] [phone] Performing Lab: [facility] [phone] WBC 9.78 10*3/uL 4.0-11.0 RBC 5.08 10*6/uL 4.6-6.2 HGB 16.4 g/dL 13.5-17.9 HCT 48.1 41-54 MCV 94.7 fL 80-100 MCH 32.3 pg 27-33 MCHC 34.1 g/dL 32.0-37.5 PLT 244 10*3/uL 150-400 MPV 10.0 fL 7.4-10.4 RDW 12.7 11.5-14.5 Jul 02, 2023 12:10 PM [facility] BASIC METABOLIC PANEL+MG Specimen Type: PLASMA No comment entered. Ordering Provider: FLAQUITO VIRGEN Report Released Date/Time: May 02, 2023 01:39 PM Reporting Lab: [facility] [id number] Performing Lab: [facility] [phone] CREATININE 1.1 mg/dL 0.7-1.2 UREA NITROGEN 16 [...] Source Jul 07, 2023 07:50 PM 3 [facility] Jul 07, 2023 06:53 PM 4 [facility] Jul 07, 2023 02:52 PM 3 [facility] Jul 07, 2023 11:49 AM 96 /min 119/85 mm[Hg] 93 % [facility] Jul 07, 2023 11:36 AM 127 /min 79 % [facility] Social History: Smoking Status (Most current) and Tobacco Use (All prior to encounter date) This section includes the most current, and the historical, smoking and tobacco- related health factors from the [place] facility where the Encounter took place. Current Smoking Status This section includes the most current smoking, or tobacco-related health factor, from the [place] facility where the Encounter took place. Date/Time Current Smoking Status Comment Tasha woods Dec 19, 2020 12:07 PM [place]-TOBACCO QUIT 5 TO < 15 YRS [facility] Tobacco Use History This section includes a history of the smoking, or tobacco-related health factors, that were collected on or before the date of the Encounter. The data comes from the [place] facility where the Encounter took place. Date/Time Smoking Status/Tobacco Use Comment Seth adame Dec 19, 2020 12:07 PM [place]-TOBACCO QUIT 5 TO < 15 YRS [facility] Aug 02, 2015 09:49 AM CURRENT TOBACCO USER [facility] Jun 06, 2014 08:51 AM CURRENT TOBACCO USER [facility] May 04, 2013 09:29 AM CURRENT TOBACCO USER [facility] Apr 24, 2012 07:40 AM CURRENT TOBACCO USER [facility] Advance Directives: All historical and current Section Date Range: From patient's date of to the date document was created. This section includes ALL of a patient's completed or amended [place] Advance and Rescinded Directives. The entries below indicate that a directive exists for the patient, but an actual copy is not included with this document. The data comes from all [place] facilities. Date Advance Directives Provider Source Jan 02, 2023 STATE-AUTHORIZED PORTABLE ORDERS JAMESABHIJIT GonzalezPHOENIX Campo [facility] Encounter Notes: All associated encounter notes This section contains the clinical notes associated to the Encounter. Date/Time Encounter Note(s) Provider Source Jul 07, 2023 12:44 PM ADDENDUM: LOCAL TITLE: Addendum STANDARD TITLE: ADDENDUM DATE OF NOTE: JUL 07, 2023@12:44:26 ENTRY DATE: JUL 07, 2023@12:44:27 AUTHOR: LUANNE WATTS EXP COSIGNER: URGENCY: STATUS: COMPLETED Please use the following med list to order inpatient meds Since interview, no pending, clinic or discontinued meds /mateo/ LUANNE WATTS PHARMD,BCPS PHARMACIST Signed: 07/07/2023 12:44 Receipt Acknowledged By: 07/07/2023 13:35 /mateo/ ASHLEY VELARDE APRN NURSE PRACTITIONER --- Original Document --- 07/01/23 DRUG RECONCILIATION ON ADMIT: PHARMACY MEDICATION HISTORY NOTE ==== Medication & allergy history was compiled by pharmacy to assist providers ordering inpatient medications. Essential med list includes active local & remote VA rxs, non-VA meds, recently rxs within last 180 days, recently discontinued rxs within last 90 days, clinic med orders, pending med orders, & inpatient med orders. Current active & pending inpatient med orders will be reviewed to complete medication reconciliation. With the exception of allergies, if a category is not listed below, there were no relevant meds for the patient. Seasonal Influenza Immunization:*pt refuses* INTERVIEW Patient and/or caregiver has been INTERVIEWED by pharmacy. Allergies: FACILITY ALLERGY/ADR -------- No Remote Allergy/ADR Data available for this patient [facility] No Known Allergies Patient states manages his own medications. Tobacco use within the last 30 days No 07/01/2023 08:03 ======== GILDA CARRILLO [phone] Source of Info: [facility] ======== Drug Last Refills Qty Filled Remaining ---- --- ------ --------- ACETAMINOPHEN 500MG TAB 600 05/11/2023 (1) TWO TID FOR PAIN *NOT TO EXCEED 4000MG IN 24 HOURS FROM ALL SOURCES* pt states takes 2 tabs four times daily for hip pain ALBUTEROL 3/IPRATROP 0.5MG/3ML INHL 3M 60 05/27/2023 (3) 3ML IN NEBULIZER EVERY 4 HOURS PRN FOR SHORTNESS OF BREATH pt state uses about 3-4 times a week ALBUTEROL 90MCG (CFC-F) 200D ORAL INHL 2 06/20/2023 (3) 2 PUFFS QID PRN FOR SHORTNESS OF BREATH pt states about a few times a week fro COPD APIXABAN 5MG TAB 180 08/26/2023 (0) ONE Q12H (~0800 & 1900) TO TREAT AND/OR PREVENT BLOOD CLOTS DICLOFENAC NA 1% TOP GEL 100 02/11/2023 (3) APPLY 2 GRAMS TOPICALLY TWO TIMES A DAY PRN FOR PAIN -USE DOSE CARD IN BOX TO MEASURE DOSE -MAXIMUM OF 32 GM PER DAY pt states uses about once a week for knees pain EMPAGLIFLOZIN 25MG TAB 45 04/28/2023 (2) ONE-HALF QAM FOR HEART FAILURE FLUTICASONE PROP 50MCG 120D NASAL INHL 3 06/03/2023 (3) SPRAY 2 SPRAYS IN EACH NOSTRIL QDAY (am) FOR NASAL DRIP FUROSEMIDE 40MG TAB 180 06/20/2023 (3) TWO QAM (pm) FOR EXCESS FLUID FOR WEIGHT GAIN OR WORSENING HEART FAILURE SYMPTOMS LOSARTAN 50MG TAB 90 04/25/2023 (1) ONE QAM FOR HEART FAILURE METOPROLOL SUCCINATE 100MG SA TAB 180 05/19/2023 (2) ONE BID FOR ATRIAL FIBRILLATION pt confirmed dose above (DC'D 02/28/23 25MG SUPPLY X 3 TABS bid and DC'D 01/16/23 50mg supply 1 tab bid) POTASSIUM CL 20MEQ SA TAB (DISPERSIBLE 90 08/17/2023 (1) ONE QDAY (am) FOR POTASSIUM SUPPLEMENT SEMAGLUTIDE 1MG/0.75ML INJ PEN 3ML 1 06/23/2023 (7) INJECT 1MG SQ EVERY WEEK (Friday am) FOR DIABETES (DC'D 03/07/23 0.25MG/0.375ML INJ PEN 3ML) SPIRONOLACTONE 25MG TAB 90 05/21/2023 (3) ONE QDAY (am) FOR HEART FAILURE TRAZODONE HCL 50MG TAB 90 03/31/2023 (1) ONE QHS FOR SLEEP ==== The following are active topical Rxs: Pt states he has a nurse who visits him 3 times a week (Mon, Wed & Fri) to take care of several open wounds. ==== A & D OINT 480 02/26/2023 (11) APPLY LIBERALLY TO GROIN AND BUTTOCKS TOPICALLY DIRECTED INTERTRIGO Indication: INTERTRIGO DIMETHICONE 12.5% TOP CREAM 120 05/26/2023 (7) APPLY AFFECTED AREA TOPICALLY THREE TIMES A WEEK Indication: BARRIER FOR COCCYX ULCER HYDROPHILIC (EQV AQUAPHOR) TOP OINT 454 02/28/2023 (9) APPLY SMALL AMOUNT TOPICALLY THREE TIMES A WEEK FOR DRY SKIN Indication: FOR DRY SKIN TAZAROTENE 0.1% TOP CREAM 60 02/28/2023 (3) APPLY THIN LAYER TOPICALLY QHS TO THE FEET WITH THE 40% UREA CREAM, UNDER OCCLUSION DIRECTED Indication: PALMOPLANTAR PSORIASIS TRIAMCINOLONE ACETONIDE 0.1% OINT 454 04/15/2023 (3) APPLY THIN LAYER TOPICALLY BID AVOID FACE,GROIN & ARMPITS *FOR EXTERNAL USE ONLY APPLY TO INTACT SKIN ON LOWER LEGS AFTER DILUTE VINEGAR OR VASHE SOAKS. WRAP WITH KERLIX. UREA 40% CREAM 180 05/05/2023 (4) APPLY THIN LAYER TOPICALLY QDAY DIRECTED FOR THICK SKIN VANICREAM TOP CREAM 454 02/28/2023 (11) APPLY THIN LAYER TOPICALLY QDAY IDEALLY WITHIN 3 MINUTES AFTER BATH OR SHOWER. TO ALL AREAS OF SKIN FOR MOISTURIZER FOR DRY SKIN Indication: DRY SKIN pt states a nurse applies on his back after shower ---------The following Rxs have ; Pt states still taking GABAPENTIN 400MG CAP 360 11/06/2022 (0) ONE FOUR TIMES DAILY FOR PAIN : 02/04/2023 pt states [facility] 1 [facility] 4 times daily for neuropathy; Pt states very short on supply, asked for renew RX GUAIFENESIN 200MG TAB 600 11/04/2022 (1) TWO TID FOR COPD/COUGH/MUCUS : 02/26/2023 pt states still taking 2 tabs TID LORATADINE 10MG TAB 90 05/12/2023 (1) ONE QDAY PRN FOR ALLERGIES : 06/21/2023 pt state takes 1 tab qam scheduled ------The following Rxs have ; Pt states not taking/using ------ OLODATEROL/TIOTROP 2.5MCG/ACTUAT 60D I 2 03/31/2023 (1) 2 PUFFS QDAY TO PREVENT TROUBLE BREATHING : 06/08/2023 pt states uses only Albuterol Inhaler and nebulisers - see active rx above TAMSULOSIN HCL 0.4MG CAP 90 08/24/2022 (2) ONE QHS FOR BENIGN PROSTATE HYPERTROPHY/INCREASED URINATION : 01/09/2023 pt states run out it was not doing any good No pending orders for this patient! The following are Non-VA medications LIDOCAINE 5% PATCH 1 PATCH pt states uses occasionally normally uses 3 patches applies to hip and buttocks Niacin 50mg one 1 qam PRN pt states last time took about a week ago KETOCONAZOLE SHAMPOO 2%SHAMPOO Comments: Wash small application topical daily PRN for psoriasis; leave in for 5 minutes before rinsing- pt states no longer using Medications given in clinic: Not applicable Recently discontinued prescriptions: dc'd [id number] MOMETASONE 200MCG/ACTUAT 120D ORAL INHL Issue Date 03/26/2022 SIG INHALE 2 PUFFS BY INHALATION TWICE A DAY FOR COPD *RINSE MOUTH AFTER USINGFac[facility] Active supply: BRIEF,TRANQUILITY AUGUSTIN OVERNITE XXL#[id number] 04/26/2023 (2) USE BRIEF DIRECTED PRN CLEANSING CLOTH ATTENDS PKT 1 06/30/2023 (5) USE 1 WASHCLOTH TOPICALLY DIRECTED Indication: CLEANSER DRESSING,MEPILEX BORDER HEEL 8.7INX9.1 30 05/24/2023 (0) APPLY 1 DRESSING TOPICALLY THREE TIMES WEEKLY KERLIX 4.5IN STERILE 30 06/30/2023 (7) USE 1 BANDAGE TOPICALLY DIRECTED SKIN PREP WIPE, S&N #[id number] 02/13/2023 (1) USE 1 WIPE TOPICALLY THREE TIMES A WEEK REPLACES SKIN BARRIER FILM DUE TO BACKORDER /mateo/ INES ROBERT BOILER PLANT OPERATOR Signed: 07/01/2023 14:14 LUANNE WATTS [facility] Jul 01, 2023 02:04 PM PHARMACY MEDICATIO N MGT NOTE: LOCAL TITLE: DRUG RECONCILIATION ON ADMIT STANDARD TITLE: PHARMACY MEDICATION MGT NOTE DATE OF NOTE: JUL 01, 2023@14:04 ENTRY DATE: JUL 01, 2023@14:04:37 AUTHOR: INES ROBERT EXP COSIGNER: URGENCY: STATUS: COMPLETED DRUG RECONCILIATION ON ADMIT Has ADDENDA PHARMACY MEDICATION HISTORY NOTE ==== Medication & allergy history was compiled by pharmacy to assist providers ordering inpatient medications. Essential med list includes active local & remote VA rxs, non-VA meds, recently rxs within last 180 days, recently discontinued rxs within last 90 days, clinic med orders, pending med orders, & inpatient med orders. Current active & pending inpatient med orders will be reviewed to complete medication reconciliation. With the exception of allergies, if a category is not listed below, there were no relevant meds for the patient. Seasonal Influenza Immunization:*pt refuses* INTERVIEW Patient and/or caregiver has been INTERVIEWED by pharmacy. Allergies: FACILITY ALLERGY/ADR -------- No Remote Allergy/ADR Data available for this patient [facility] No Known Allergies Patient states manages his own medications. Tobacco use within the last 30 days No 07/01/2023 08:03 ======== GILDA CARRILLO [phone] Source of Info: [facility] ======== Drug Last Refills Qty Filled Remaining ---- --- ------ --------- ACETAMINOPHEN 500MG TAB 600 05/11/2023 (1) TWO TID FOR PAIN *NOT TO EXCEED 4000MG IN 24 HOURS FROM ALL SOURCES* pt states takes 2 tabs four times daily for hip pain ALBUTEROL 3/IPRATROP 0.5MG/3ML INHL 3M 60 05/27/2023 (3) 3ML IN NEBULIZER EVERY 4 HOURS PRN FOR SHORTNESS OF BREATH pt state uses about 3-4 times a week ALBUTEROL 90MCG (CFC-F) 200D ORAL INHL 2 06/20/2023 (3) 2 PUFFS QID PRN FOR SHORTNESS OF BREATH pt states about a few times a week fro COPD APIXABAN 5MG TAB 180 08/26/2023 (0) ONE Q12H (~0800 & 1900) TO TREAT AND/OR PREVENT BLOOD CLOTS DICLOFENAC NA 1% TOP GEL 100 02/11/2023 (3) APPLY 2 GRAMS TOPICALLY TWO TIMES A DAY PRN FOR PAIN -USE DOSE CARD IN BOX TO MEASURE DOSE -MAXIMUM OF 32 GM PER DAY pt states uses about once a week for knees pain EMPAGLIFLOZIN 25MG TAB 45 04/28/2023 (2) ONE-HALF QAM FOR HEART FAILURE FLUTICASONE PROP 50MCG 120D NASAL INHL 3 06/03/2023 (3) SPRAY 2 SPRAYS IN EACH NOSTRIL QDAY (am) FOR NASAL DRIP FUROSEMIDE 40MG TAB 180 06/20/2023 (3) TWO QAM (pm) FOR EXCESS FLUID FOR WEIGHT GAIN OR WORSENING HEART FAILURE SYMPTOMS LOSARTAN 50MG TAB 90 04/25/2023 (1) ONE QAM FOR HEART FAILURE METOPROLOL SUCCINATE 100MG SA TAB 180 05/19/2023 (2) ONE BID FOR ATRIAL FIBRILLATION pt confirmed dose above (DC'D 02/28/23 25MG SUPPLY X 3 TABS bid and DC'D 01/16/23 50mg supply 1 tab bid) POTASSIUM CL 20MEQ SA TAB (DISPERSIBLE 90 08/17/2023 (1) ONE QDAY (am) FOR POTASSIUM SUPPLEMENT SEMAGLUTIDE 1MG/0.75ML INJ PEN 3ML 1 06/23/2023 (7) INJECT 1MG SQ EVERY WEEK (Friday am) FOR DIABETES (DC'D 03/07/23 0.25MG/0.375ML INJ PEN 3ML) SPIRONOLACTONE 25MG TAB 90 05/21/2023 (3) ONE QDAY (am) FOR HEART FAILURE TRAZODONE HCL 50MG TAB 90 03/31/2023 (1) ONE QHS FOR SLEEP ==== The following are active topical Rxs: Pt states he has a nurse who visits him 3 times a week (Mon, Wed & Fri) to take care of several open wounds. ==== A & D OINT 480 02/26/2023 (11) APPLY LIBERALLY TO GROIN AND BUTTOCKS TOPICALLY DIRECTED INTERTRIGO Indication: INTERTRIGO DIMETHICONE 12.5% TOP CREAM 120 05/26/2023 (7) APPLY AFFECTED AREA TOPICALLY THREE TIMES A WEEK Indication: BARRIER FOR COCCYX ULCER HYDROPHILIC (EQV AQUAPHOR) TOP OINT 454 02/28/2023 (9) APPLY SMALL AMOUNT TOPICALLY THREE TIMES A WEEK FOR DRY SKIN Indication: FOR DRY SKIN TAZAROTENE 0.1% TOP CREAM 60 02/28/2023 (3) APPLY THIN LAYER TOPICALLY QHS TO THE FEET WITH THE 40% UREA CREAM, UNDER OCCLUSION DIRECTED Indication: PALMOPLANTAR PSORIASIS TRIAMCINOLONE ACETONIDE 0.1% OINT 454 04/15/2023 (3) APPLY THIN LAYER TOPICALLY BID AVOID FACE,GROIN & ARMPITS *FOR EXTERNAL USE ONLY APPLY TO INTACT SKIN ON LOWER LEGS AFTER DILUTE VINEGAR OR VASHE SOAKS. WRAP WITH KERLIX. UREA 40% CREAM 180 05/05/2023 (4) APPLY THIN LAYER TOPICALLY QDAY DIRECTED FOR THICK SKIN VANICREAM TOP CREAM 454 02/28/2023 (11) APPLY THIN LAYER TOPICALLY QDAY IDEALLY WITHIN 3 MINUTES AFTER BATH OR SHOWER. TO ALL AREAS OF SKIN FOR MOISTURIZER FOR DRY SKIN Indication: DRY SKIN pt states a nurse applies on his back after shower ---------The following Rxs have ; Pt states still taking GABAPENTIN 400MG CAP 360 11/06/2022 (0) ONE FOUR TIMES DAILY FOR PAIN : 02/04/2023 [facility] 1 [facility] 4 times daily for neuropathy; Pt states very short on supply, asked for renew RX GUAIFENESIN 200MG TAB 600 11/04/2022 (1) TWO TID FOR COPD/COUGH/MUCUS : 02/26/2023 pt states still taking 2 tabs TID LORATADINE 10MG TAB 90 05/12/2023 (1) ONE QDAY PRN FOR ALLERGIES : 06/21/2023 pt state takes 1 tab qam scheduled ------The following Rxs have ; Pt states not taking/using ------ OLODATEROL/TIOTROP 2.5MCG/ACTUAT 60D I 2 03/31/2023 (1) 2 PUFFS QDAY TO PREVENT TROUBLE BREATHING : 06/08/2023 pt states uses only Albuterol Inhaler and nebulisers - see active rx above TAMSULOSIN HCL 0.4MG CAP 90 08/24/2022 (2) ONE QHS FOR BENIGN PROSTATE HYPERTROPHY/INCREASED URINATION : 01/09/2023 pt states run out it was not doing any good No pending orders for this patient! The following are Non-ND medications LIDOCAINE 5% PATCH 1 PATCH pt states uses occasionally normally uses 3 patches applies to hip and buttocks Niacin 50mg one 1 qam PRN pt states last time took about a week ago KETOCONAZOLE SHAMPOO 2%SHAMPOO Comments: Wash small application topical daily PRN for psoriasis; leave in for 5 minutes before rinsing- pt states no longer using Medications given in clinic: Not applicable Recently discontinued prescriptions: dc'd [id number] MOMETASONE 200MCG/ACTUAT 120D ORAL INHL Issue Date 03/26/2022 SIG INHALE 2 PUFFS BY INHALATION TWICE A DAY FOR COPD *RINSE MOUTH AFTER [facility]INGFac[facility] supply: BRIEF,TRANQUILITY AUGUST[place] OVERNITE XXL#21 [id number] 04/26/2023 (2) USE BRIEF DIRECTED PRN CLEANSING CLOTH ATTENDS PKT 1 06/30/2023 (5) USE 1 WASHCLOTH TOPICALLY DIRECTED Indication: CLEANSER DRESSING,MEPILEX BORDER HEEL 8.7INX9.1 30 05/24/2023 (0) APPLY 1 DRESSING TOPICALLY THREE TIMES WEEKLY KERLIX 4.5IN STERILE 30 06/30/2023 (7) USE 1 BANDAGE TOPICALLY DIRECTED SKIN PREP WIPE, S&N #[id number] 02/13/2023 (1) USE 1 WIPE TOPICALLY THREE TIMES A WEEK REPLACES 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
--- OUTSIDE RECORDS SUMMARY | 2024-03-25 10:32 | XMS_ITS | Encounter Summary ---
Author Name [facility] [place] [facility] [place] Address [address] [place] [address] Care Team Providers Care Border Police Name Role Phone GELACIO MICHEL Primary Care [...] PART A Jul 21, 2014 PART A [id number] Miguelito APPLE PATIENT Selected Encounter This section includes the information on record at [place] for the Encounter. Date/Time Encounter Type Encounter Description Reason Pro vider Source Jul 07, 2023 08:00 AM Inpatient Visit SURGICAL PROCEDURE UNI T IHE Encounter Template Text not used by [place] Plan of Treatment: Future Appointments (+ 6 months) and Future Tests (+/- 45 days) The Plan of Treatment section includes future care activities for the patient from all [place] treatmentfacilities. This section includes future appointments and future orders which are active, pending or scheduled. Future Appointments This section includes appointments that were scheduled to occur 6 months from the date of the Encounter, up to a maximum of 20 appointments. The data comes from all [place] treatment facilities. Appointment Date/Time Appointment Type Appointme nt Facility Name Jul 11, 2023 11:00 AM [facility]ORY - [facility] Aug 12, 2023 03:00 PM AMBULATORY - NONE [facility] Aug 13, 2023 10:30 AM [facility] Aug 13, 2023 11:30 AM [facility] Aug 18, 2023 02:00 PM AMBULATORY - REHAB MEDICIN [facility] Sep 16, 2023 03:00 PM AMBULATORY - NONE [facility] Sep 17, 2023 02:30 PM [facility] Oct 07, 2023 12:15 PM [facility] Oct 07, 2023 01:00 PM [facility] Oct 07, 2023 02:00 PM [facility] Oct 27, 2023 11:30 AM AMBULATORY - NONE [facility] Nov 05, 2023 01:30 PM AMBULATORY - NONE [facility] December 01, 2023 12:30 PM [facility] December 07, 2023 07:00 AM [facility] Dec 25, 2023 02:20 PM [facility] [place] [facility] Dec 25, 2023 02:45 PM [facility] [facility] Dec 30, 2023 01:30 PM [facility] [place] [place] [facility] Jan 06, 2024 12:30 PM [facility] Jan 06, 2024 01:00 PM [facility] Jan 06, 2024 02:00 PM AMBULATORY - MEDICINE [facility] Active, Pending, and Scheduled Orders This section includes a listing of several types of active, pending, and scheduled orders, including clinic medications orders, diagnostic test orders, procedure orders and consult orders; where the start date of the order is 45 days before the date of the Encounter or 45 days after the date of theEncounter. The data comes from all [facility]. Test Date/Time Test Type Test Details Facility Name Jul 09, 2023 04:05 PM Laboratory - Chemi stry Order BASIC METABOLIC PANEL+MG PLASMA WC ONCE [facility] Lab Results: +/- 30 days of [...] Range Comment Jul 10, 2023 07:19 AM [facility] BNP Specimen Type: PLASMA No comment entered. Ordering Provider: ASHLEY VELARDE Report Released Date/Time: Jul 09, 2023 01:25 PM Reporting Lab: [facility] [id number] Performing Lab: [facility] [phone] BNP 25 pg/mL <99 Jul 10, 2023 07:19 AM [facility] BASIC METABOLIC PANEL+MG Specimen Type: PLASMA No comment entered. Ordering Provider: ASHLEY VELARDE Report Released Date/Time: Jul 09, 2023 01:25 PM Reporting Lab: [facility] [phone] Performing Lab: [facility] [phone] CREATININE 1.0 mg/dL 0.7-1.2 UREA NITROGEN 14 mg/dL 8-26 GLUCOSE 92 mg/dL 70-100 SODIUM 140 mmol/L 136-145 POTASSIUM 4.1 mmol/L 3.5-5.1 CHLORIDE 102 mmol/L 98-107 CO2 25 mmol/L 22-29 CALCIUM 9.3 mg/dL 8.4-10.2 MAGNESIUM 2.1 mg/dL 1.6-2.6 ANION GAP 13 mmol/L 5-15 .CREAT EGFR(CKD-EPI) 79 >60 Jul 09, 2023 01:54 PM [facility] BASIC METABOLIC PANEL+MG Specimen Type: PLASMA No comment entered. Ordering Provider: ASHLEY VELARDE Report Released Date/Time: Jul 08, 2023 02:49 PM Reporting Lab: [facility] [phone] Performing Lab: [facility] [phone] CREATININE 1.0 mg/dL 0.7-1.2 UREA NITROGEN 12 mg/dL 8-26 GLUCOSE 108 mg/dL H 70-100 SODIUM 141 mmol/L 136-145 POTASSIUM 4.4 mmol/L 3.5-5.1 CHLORIDE 102 mmol/L 98-107 CO2 31 mmol/L H 22-29 CALCIUM 9.7 mg/dL 8.4-10.2 MAGNESIUM 2.0 mg/dL 1.6-2.6 ANION GAP 8 mmol/L 5-15 .CREAT EGFR(CKD-EPI) 79 >60 Jul 09, 2023 07:16 AM [facility] BASIC METABOLIC PANEL+MG Specimen Type: PLASMA No comment entered. Ordering Provider: ASHLEY VELARDE Report Released Date/Time: Jul 08, 2023 07:58 AM Reporting Lab: [facility] [phone] Performing Lab: [facility] [phone] CREATININE 1.0 mg/dL 0.7-1.2 UREA NITROGEN 14 mg/dL 8-26 GLUCOSE 99 mg/dL 70-100 SODIUM 139 mmol/L 136-145 POTASSIUM 3.4 mmol/L L 3.5-5.1 CHLORIDE 102 mmol/L 98-107 CO2 26 mmol/L 22-29 CALCIUM 9.2 mg/dL 8.4-10.2 MAGNESIUM 2.0 mg/dL 1.6-2.6 ANION GAP 11 mmol/L 5-15 .CREAT EGFR(CKD-EPI) 79 >60 Jul 08, 2023 03:08 PM [facility] BASIC METABOLIC PANEL+MG Specimen Type: PLASMA No comment entered. Ordering Provider: ASHLEY VELARDE Report Released Date/Time: Jul 08, 2023 10:12 AM Reporting Lab: [facility] [phone] Performing Lab: [facility] [phone] CREATININE 1.1 mg/dL 0.7-1.2 UREA NITROGEN 12 mg/dL 8-26 GLUCOSE 108 mg/dL H 70-100 SODIUM 138 mmol/L 136-145 POTASSIUM 3.6 mmol/L 3.5-5.1 CHLORIDE 102 mmol/L 98-107 CO2 28 mmol/L 22-29 CALCIUM 9.3 mg/dL 8.4-10.2 MAGNESIUM 2.0 mg/dL 1.6-2.6 ANION GAP 8 mmol/L 5-15 .CREAT EGFR(CKD-EPI) 71 >60 Jul 08, 2023 07:17 AM [facility] ALBUMIN Specimen Type: PLASMA No comment entered. Ordering Provider: ASHLEY VELARDE Report Released Date/Time: Jul 07, 2023 01:58 PM Reporting Lab: [facility] [phone] Performing Lab: [facility] [phone] ALBUMIN 3.6 g/dL 3.5-5.2 Jul 08, 2023 07:17 AM [facility] BASIC METABOLIC PANEL+MG Specimen Type: PLASMA No comment entered. Ordering Provider: ASHLEY VELARDE Report Released Date/Time: Jul 07, 2023 01:58 PM Reporting Lab: [facility] [phone] Performing Lab: [facility] [phone] CREATININE 1.1 mg/dL 0.7-1.2 UREA NITROGEN 14 mg/dL 8-26 GLUCOSE 105 mg/dL H 70-100 SODIUM 137 mmol/L 136-145 POTASSIUM 3.0 mmol/L L 3.5-5.1 CHLORIDE 100 mmol/L 98-107 CO2 27 mmol/L 22-29 CALCIUM 9.0 mg/dL 8.4-10.2 MAGNESIUM 1.9 mg/dL 1.6-2.6 ANION GAP 10 mmol/L 5-15 .CREAT EGFR(CKD-EPI) 71 >60 Jul 07, 2023 04:43 PM [facility] FINGERSTICK GLUCOSE Specimen Type: BLOOD Comment: Save Result Ordering Provider: ETHAN MOSS Report Released Date/Time: Jul 08, 2023 10:19 AM Reporting Lab: [facility] [phone] Performing Lab: [facility] [phone] FINGERSTICK GLUCOSE 116 mg/dL 70-100 Jul 07, 2023 06:56 AM [facility] PROTHROMBIN TIME/INR Specimen Type: PLASMA No comment entered. Ordering Provider: HITESH HOLGUIN Report Released Date/Time: Jun 26, 2023 12:06 PM Reporting Lab: [facility] [phone] Performing Lab: [facility] [phone] .INR 1.3 H 0.8-1.1 .PT 15.1 s H 9.4-12.5 Jul 07, 2023 06:56 AM [facility] CBC Specimen Type: BLOOD No comment entered. Ordering Provider: HITESH HOLGUIN Report Released Date/Time: Jun 26, 2023 12:06 PM Reporting Lab: [facility] [phone] Performing Lab: [facility] [phone] WBC 9.78 10*3/uL 4.0-11.0 RBC 5.08 10*6/uL 4.6-6.2 HGB 16.4 g/dL 13.5-17.9 HCT 48.1 41-54 MCV 94.7 fL 80-100 MCH 32.3 pg 27-33 MCHC 34.1 g/dL 32.0-37.5 PLT 244 10*3/uL 150-400 MPV 10.0 fL 7.4-10.4 RDW 12.7 11.5-14.5 Jul 07, 2023 06:56 AM [facility] BASIC METABOLIC PANEL+MG Specimen Type: PLASMA No comment entered. Ordering Provider: HITESH HOLGUIN Report Released Date/Time: Jun 26, 2023 11:50 AM Reporting Lab: [facility] [phone] Performing Lab: [facility] [phone] CREATININE 1.1 mg/dL 0.7-1.2 UREA NITROGEN 14 mg/dL 8-26 GLUCOSE 104 mg/dL H 70-100 SODIUM 137 mmol/L 136-145 POTASSIUM 3.3 mmol/L L 3.5-5.1 CHLORIDE 99 mmol/L 98-107 CO2 24 mmol/L 22-29 CALCIUM 9.5 mg/dL 8.4-10.2 MAGNESIUM 2.2 mg/dL 1.6-2.6 ANION GAP 14 mmol/L 5-15 .CREAT EGFR(CKD-EPI) 71 >60 Jul 02, 2023 12:10 PM [facility] BASIC METABOLIC PANEL+MG Specimen Type: PLASMA No comment entered. Ordering Provider: FLAQUITO VIRGEN Report Released Date/Time: May 02, 2023 01:39 PM Reporting Lab: [facility] [phone] Performing Lab: [facility] [phone] CREATININE 1.1 mg/dL 0.7-1.2 UREA NITROGEN 16 [...] Source Jul 07, 2023 07:50 PM 3 [facility] Jul 07, 2023 06:53 PM 4 [facility] Jul 07, 2023 02:52 PM 3 [facility] Jul 07, 2023 11:49 AM 96 /min 119/85 mm[Hg] 93 % [facility] Jul 07, 2023 11:36 AM 127 /min 79 % [facility] Social History: Smoking Status [...] 19, 2020 12:07 PM VA-TOBACCO FORMER USER [facility] Tobacco Use History This section includes a history of the smoking, or tobacco-related health factors, that were collected on or before the date of the Encounter. The data comes from the [place] facility where the Encounter took place. Date/Time Smoking Status/Tobacco Use Comment F wendi Dec 19, 2020 12:07 PM VA-TOBACCO QUIT 5 TO < 15 YRS [facility] Aug 02, 2015 09:49 AM CURRENT TOBACCO USER [facility] Jun 06, 2014 08:51 AM CURRENT TOBACCO USER [facility] May 04, 2013 09:29 AM CURRENT TOBACCO USER [facility] Apr 24, 2012 07:40 AM CURRENT TOBACCO USER [facility] Advance Directives: All historical and current Section Date Range: From patient's date of to the date document was created. This section includes ALL of a patient's completed or amended [place] Advance and Rescinded Directives. The entries below indicate that a directive exists for the patient, but an actual copy is not included with this document. The data comes from all [place] facilities. Date Advance Directives Provider Source Jan 02, 2023 STATE-AUTHORIZED PORTABLE ORDERS [facility] Encounter Notes: All associated encounter notes This section contains the clinical notes associated to the Encounter. Date/Time Encounter Note(s) Provider Source Jul 07, 2023 12:21 PM NURSING OUTPATIENT NOTE: LOCAL TITLE: NURSING SHORT STAY NOTE STANDARD TITLE: NURSING OUTPATIENT NOTE DATE OF NOTE: JUL 07, 2023@12:21 ENTRY DATE: JUL 07, 2023@12:21:36 AUTHOR: TEN CONTRERAS COSIGNER: URGENCY: STATUS: COMPLETED Transesophageal Echo (CLAUS) Post-procedure Diagnosis:Afib;admission for Dofetilide doseing Vital Signs: Temperature: 97.4 F [36.3 C] (07/07/2023 11:33) Pulse: 96 (07/07/2023 11:49) Respirations: 14 (07/07/2023 11:33) Blood pressure: 119/85 (07/07/2023 11:49) Pulse Oximetery: 93% (07/07/2023 11:49) NPO until: Jun@11:30 Peripheral IV: Yes; EDUCATION: Discharge Following Conscious Sedation: Do Not Drive for 24 Hours. Do Not Drink Any Alcohol for 24 Hours. Do Not Make Any Important Decisions or Sign Contracts for 24 Hours. Have a Responsible Adult With You for the First 24 Hours. READINESS TO LEARN No barriers IDENTIFIED LEARNING NEEDS/TOPIC: Disease/Condition: Rehabilitation Safety Further care Activities of daily living Pain PARTICIPANTS: Patient TEACHING STRATEGY: 1:1 Objectives: States understanding of procedure States signs and symptoms of infection States signs and symptoms of serious complications PATIENT/FAMILY RESPONSE (OUTCOME): Demonstrates skill(s) safely and effectively Verbalizes critical information about the topic FOLLOW-UP RECOMMENDED: Re-teach/re-inforce/repeat demonstration Criteria for Release Post Trans-Esophageal Echocardiogram (CLAUS) Peripheral IV remained in place for 3K admission 1. Vital signs consistent with baseline reading. (Systolic B/P +/- 20 mmHG, no signs or symptoms of respiratory distress, Temp <100, SPO2 > 90% on room air or at baseline.) Criteria met: Yes 2. Level of alertness and orientation at baseline. Criteria met: Yes 3. Comfort level near baseline and acceptable to patient. Criteria met: Yes 4. Able to void or has urinary drainage device in place and patent. Criteria met: Yes 5. Ambulates without dizziness or lightheadedness or at baseline activity level. Criteria met: Yes 6. No evidence of allergic reaction/adverse effects from sedation. Criteria met: Yes 7. Gag reflex is present, able to tolerate oral intake. Criteria met: Yes 8. Patient and medical attendant received written instructions for home care. Criteria met: Yes 9. Transportation/home support arrangements assessed and are satisfactory. Criteria met: Yes 10. Meets conscious sedation release criteria if applicable and has a regional tanker truck driver/medical attendant. Name and phone number: Patient without medical attendant retained in lodging status over night or 15 hours post sedation. Yes 11. If above criteria have not been met, responsible Licensed Independent Professional to evaluate the client and determine/document appropriate disposition. Released per protocol Yes, to 3K for admission @ 1400; /es/ TEN CONTRERAS RN STAFF NURSE Signed: 07/07/2023 14:25 TEN CONTRERAS [facility] Jul 07, 2023 07:58 AM NURSING OUTPATIENT NOTE: LOCAL TITLE: NURSING SHORT STAY NOTE STANDARD TITLE: NURSING OUTPATIENT NOTE DATE OF NOTE: JUL 07, 2023@07:58 ENTRY DATE: JUL 07, 2023@07:58:29 AUTHOR: MIRIAM WAGONERIGNER: URGENCY: STATUS: COMPLETED NURSING SHORT STAY NOTE Has ADDENDA Transesophageal Echo (CLAUS) Pre-procedure Diagnosis: CLAUS Temperature: 97.6 F [36.4 C] (07/07/2023 07:49) Pulse: 106 (07/07/2023 07:49) Respirations: 16 (07/02/2023 13:54) Blood Pressure: 135/85 (07/07/2023 07:49) Pulse Oximetry: 97% (07/07/2023 07:49) Pain: 0 (07/02/2023 13:54) Weight: 364 Medication list reviewed with patient/caregiver, states it is accurate: Yes What medication/s did you take today? Metoprolol What medication/s did you hold today? All others Name of regional tanker truck driver/medical attendant and phone number: Marium Apple [phone] Peripheral IV placed: No NPO after midnight: Yes Took medication as directed: Yes ID / Allergy band on and verified: Yes Glasses/contacts: No Hearing aid: No Dentures: No Patient given CLAUS educational booklet: Yes /mateo/ MIRIAM WAGONER RN REGISTERED NURSE Signed: 07/07/2023 08:01 07/07/2023 ADDENDUM STATUS: COMPLETED Gave K+ 40mEQ liquid po at 0850. /mateo/ MIRIAM WAGONER RN REGISTERED NURSE Signed: 07/07/2023 09:56 MIRIAM WAGONER [facility]
--- OUTSIDE RECORDS SUMMARY | 2024-03-25 10:33 | XMS_ITS | Encounter Summary ---
Author Name [facility] Organization [facility] Address [address] [place] [address] Care Team Providers Care Relay Shop Supervisor Name Role Phone GELACIO MICHEL Primary [...] PART A Jul 21, 2014 PART A [id number] [phone] Miguelito CARRILLO PATIENT Selected Encounter This section includes the information on record at [place] for the Encounter. Date/Time Encounter Type Encounter Description Reason Provider Source Jan 21, 2024 11:30 AM HC PRO PHONE CALL 11-20 MIN TELEPHONE PRIMARY CARE ICD-10-CM J44.9 Chronic obstructive pulmonary disease, unspecified NIRU SUAZO Encounter Template Text not used by [place] Assessments - Encounter Diagnoses This section includes the primary and secondary diagnoses documented for the Encounter. Date/Time Primary/Secondary Diagnosis Diagnosis Name Provider Source Jan 21, 2024 11:30 AM PRIMARY Chronic obstructive pulmonary disease, unspecified NIRU SUAZO [facility] Plan of Treatment: Future Appointments (+ 6 months) and Future Tests (+/- 45 days) The Plan of Treatment section includes future care activities for the patient [facility] This section includes future appointments and future orders which are active, pending or scheduled. Future Appointments This section includes appointments that were scheduled to occur 6 months from the date of the Encounter, up to a maximum of 20 appointments. The data comes from all [facility]. Appointment Date/Time Appointment Type Appointme nt Facility Name Feb 04, 2024 01:30 PM AMBULATORY - MED[facility] Feb 04, 2024 02:30 PM [facility] Feb 11, 2024 02:30 PM [facility] Feb 12, 2024 12:30 PM AMBULATORY - NONE [facility] Feb 12, 2024 01:30 PM AMBULATORY - SURGERY [facility] Feb 12, 2024 03:00 PM AMBULATORY - SURGERY [facility] Feb 19, 2024 02:15 PM AMBULATORY - MEDICINE [facility] Feb 26, 2024 10:00 AM AMBULATORY - NONE [facility] Mar 29, 2024 01:00 PM AMBULATORY - SURGERY [facility] Mar 29, 2024 02:00 PM AMBULATORY - SURGERY [facility] Mar 30, 2024 08:30 AM AMBULATORY - REHAB [facility] Apr 01, 2024 10:00 AM AMBULATORY - NONE [facility] Apr 12, 2024 10:15 AM AMBULATORY - SURGERY [facility] Apr 13, 2024 01:15 PM AMBULATORY - MEDICINE [facility] Apr 13, 2024 01:30 PM AMBULATORY - MEDICINE [facility] Apr 13, 2024 02:00 PM [facility] Apr 15, 2024 01:45 PM AMBULATORY - SURGERY [facility] May 06, 2024 04:00 PM AM[facility]ORY [facility] May 12, 2024 02:00 PM AMBULATORY - MEDICINE [facility] May 12, 2024 03:00 PM AMBULATORY - MEDICINE [facility] Active, Pending, and Scheduled Orders This section includes a listing of several types of active, pending, and scheduled orders, including clinic medications orders, diagnostic test orders, procedure orders and consult orders; where the start date of the order is 45 days before the date of the Encounter or 45 days after the date of theEncounter. The data comes from all [place] treatment facilities. Test Date/Time Test Type Test Details Facility Name Jan 06, 2024 12:00 AM Laboratory - Chemi stry Order BNP PLASMA SP ONCE [facility] Feb 27, 2024 12:50 PM Consult Order OT OCCUPAT IONAL THERAPY OUTPT EQUIPMENT Cons Field Project Manager's Choice PASHA NICHOLS Lab Results: +/- 30 days of the encounter This section includes the Chemistry and Hematology Lab Results on record with [place] for the patient. Radiology Reports and Pathology Reports are provided separately, in subsequent sections. Lab Results This section contains the Chemistry/Hematology Results that were resulted 30 days before or 30 daysafter the date of the Encounter. Date/Time Source Result Type Result - Unit Interpretation Reference Range Comment Feb 12, 2024 12:12 PM [facility] BASIC METABOLIC PANEL+MG Specimen Type: PLASMA No comment entered. Ordering Provider: JACOB VIRGEN Report Released Date/Time: Feb 04, 2024 02:58 PM Reporting Lab: [facility] [address] Performing Lab: [facility] [address] CREATININE 1.4 mg/dL H 0.7-1.2 UREA NITROGEN 21 mg/dL 8-26 GLUCOSE 135 mg/dL H 70-100 SODIUM 136 mmol/L 136-145 POTASSIUM 4.0 mmol/L 3.5-5.1 CHLORIDE 100 mmol/L 98-107 CO2 25 mmol/L 22-29 CALCIUM 9.3 mg/dL 8.4-10.2 MAGNESIUM 2.2 mg/dL 1.6-2.6 ANION GAP 11 mmol/L 5-15 .CREAT EGFR(CKD-EPI) 53 L >60 Feb 04, 2024 01:40 PM [facility] BNP Specimen Type: PLASMA No comment entered. Ordering Provider: JACOB VIRGEN Report Released Date/Time: Aug 13, 2023 11:38 AM Reporting Lab: [facility] [address] Performing Lab: [facility] [address] BNP 23 pg/mL <99 Feb 04, 2024 01:40 PM [facility] BASIC METABOLIC PANEL+MG Specimen Type: PLASMA No comment entered. Ordering Provider: JACOB VIRGEN Report Released Date/Time: Aug 13, 2023 11:38 AM Reporting Lab: [facility] [address] Performing Lab: [facility] [address] CREATININE 1.2 mg/dL 0.7-1.2 UREA NITROGEN 18 mg/dL 8-26 GLUCOSE 102 mg/dL H 70-100 SODIUM 140 mmol/L 136-145 POTASSIUM 4.1 mmol/L 3.5-5.1 CHLORIDE 102 mmol/L 98-107 CO2 27 mmol/L 22-29 CALCIUM 10.0 mg/dL 8.4-10.2 MAGNESIUM 2.3 mg/dL 1.6-2.6 ANION GAP 11 mmol/L 5-15 .CREAT EGFR(CKD-EPI) 63 >60 Jan 06, 2024 03:40 PM [facility] COVID-19 DIAGNOSTIC PANEL (BIOFIRE) Specimen Type: NASOPHARYNGEAL Comment: Biofire Torch (788) Ordering Provider: ROXANNE BUCKLEY Report Released Date/Time: Jan 06, 2024 03:22 PM Reporting Lab: [facility] [address] Performing Lab: [facility] [address] C PNEUMONIAE PCR NOT DETECTED NOT DETECTED M PNEUMONIAE PCR NOT DETECTED NOT DETECTED ADENOVIRUS-PCR NOT DETECTED NO T DETECTED H METAPNEUMOVIR PCR NOT DETECTED NOT DETECTED H RHIN/ENTEROVIR PCR NOT DETECTED NOT DETECTED INFLUENZA A PCR NOT DETECTED NOT DETECTED INFLUENZA B PCR NOT DETECTED NOT DETECTED RSV PCR NOT DETECTED NOT DETECTED CORONAVIRUS 229E PCR NOT DETECTED NOT DETECTED CORONAVIRUS HKU1 PCR NOT DETECTED NOT DETECTED CORONAVIRUS NL63 PCR NOT DETECTED NOT DETECTED CORONAVIRUS OC43 PCR NOT DETECTED NOT DETECTED PARAINFLUENZA V1 PCR NOT DETECTED NOT DETECTED PARAINFLUENZA V2 PCR NOT DETECTED NOT DETECTED PARAINFLUENZA V3 PCR NOT DETECTED NOT DETECTED PARAINFLUENZA V4 PCR NOT DETECTED NOT DETECTED B PARAPERTUS(IS1 001) NOT DETECTED NOT DETECTED B PERTUSSIS(PTXP ) NOT DETECTED NOT DETECTED RESPIRATORY INTERP No pathogens detected COVID-19 DIAG (BIOF) NOT DETECTED NOT DETECTED Jan 06, 2024 03:22 PM [facility] POC CREATININE Specimen Type: BLOOD No comment entered. Ordering Provider: ALLISON PARRA Report Released Date/Time: Jan 06, 2024 03:24 PM Reporting Lab: [facility] [address] Performing Lab: [facility] [address] POC CREATININE 1.5 mg/dL 0.6-1.3 Jan 06, 2024 03:19 PM [facility] POC ABG/LACTATE Specimen Type: VENOUS BLOOD No comment entered. Ordering Provider: ALLISON PARRA Report Released Date/Time: Jan 06, 2024 03:24 PM Reporting Lab: [facility] [address] Performing Lab: [facility] [address] POC PH 7.402 7.31-7.41 POC PCO2 50.1 mm[Hg] 41-51 POC PO2 24 mm[Hg] POC TCO2 33 mmol/L 24-29 POC HCO3 31.2 mmol/L 23-28 POC BE ECT 6 mmol/L -2-3 POC SO2 41 POC LACTATE <1.6 mmol/L 0.90-1.70 Jan 06, 2024 03:14 PM [facility] EXTRA BLUE TUBE Specimen Type: PLASMA No comment entered. Ordering Provider: ROXANNE BUCKLEY Report Released Date/Time: Jan 06, 2024 03:36 PM Reporting Lab: [facility] [address] Performing Lab: [facility] [address] EXTRA BLUE TUBE RECEIVED Jan 06, 2024 03:14 PM [facility] BNP Specimen Type: PLASMA No comment entered. Ordering Provider: ROXANNE BUCKLEY Report Released Date/Time: Jan 06, 2024 03:22 PM Reporting Lab: [facility] [address] Performing Lab: [facility] [address] BNP 18 pg/mL <99 Jan 06, 2024 03:14 PM [facility] TROPONIN I, HS Specimen Type: PLASMA No comment entered. Ordering Provider: ROXANNE BUCKLEY Report Released Date/Time: Jan 06, 2024 03:22 PM Reporting Lab: [facility] [address] Performing Lab: [facility] [address] TROPONIN I, HS <3 <35 Jan 06, 2024 03:14 PM [facility] EXTRA GOLD GEL TUBE Specimen Type: SERUM No comment entered. Ordering Provider: ROXANNE BUCKLEY Report Released Date/Time: Jan 06, 2024 03:36 PM Reporting Lab: [facility] [address] Performing Lab: [facility] [address] EXTRA GOLD GEL TUBE RECEIVED Jan 06, 2024 03:14 PM [facility] CBC & DIFF Specimen Type: BLOOD Comment: Automated Differential Performed Ordering Provider: ROXANNE BUCKLEY Report Released Date/Time: Jan 06, 2024 03:22 PM Reporting Lab: [facility] [address] Performing Lab: [facility] [address] WBC 11.27 10*3/uL H 4.0-11.0 RBC 4.81 10*6/uL 4.6-6.2 HGB 15.3 g/dL 13.5-17.9 HCT 45.8 41-54 MCV 95.2 fL 80-100 MCH 31.8 pg 27-33 MCHC 33.4 g/dL 32.0-37.5 PLT 290 10*3/uL 150-400 MPV 9.5 fL 7.4-10.4 NEUT 68.6 40.0-80.0 LYMPHS 15.1 15.0-45.0 MONO 6.8 2.0-12.0 EOSINO 8.6 H 0.0-6.0 BASO 0.5 0.0-2.0 RDW 13.2 11.5-14.5 ABS LYMPH 1.70 10*3/uL 1.0-4.0 ABS MONO 0.77 10*3/uL 0.1-1.0 ABS NEUT 7.73 10*3/uL H 2.0-7.7 ABS EOS 0.97 10*3/uL H 0-0.5 ABS BASO 0.06 10*3/uL 0-0.2 IG(META,MYELO, PRO) 0.4 ABS IMMATURE GRAN 0.04 10*3/uL 0-0.1 Jan 06, 2024 11:57 AM [facility] BASIC METABOLIC PANEL+MG Specimen Type: PLASMA No comment entered. Ordering Provider: HITESH HOLGUIN Report Released Date/Time: Oct 07, 2023 02:47 PM Reporting Lab: [facility] [address] Performing Lab: [facility] [address] CREATININE 1.0 mg/dL 0.7-1.2 UREA NITROGEN 16 mg/dL 8-26 GLUCOSE 112 mg/dL H 70-100 SODIUM 137 mmol/L 136-145 POTASSIUM 4.1 mmol/L 3.5-5.1 CHLORIDE 101 mmol/L 98-107 CO2 26 mmol/L 22-29 CALCIUM 9.6 mg/dL 8.4-10.2 MAGNESIUM 2.4 mg/dL 1.6-2.6 ANION GAP 10 mmol/L 5-15 .CREAT EGFR(CKD-EPI) 79 >60 Dec 30, 2023 11:00 AM [facility] .OCCULT BLOOD(FIT) Specimen Type: FECES No comment entered. Ordering Provider: SRUTHI ANDUJAR Report Released Date/Time: Dec 30, 2023 11:00 AM Reporting Lab: [facility] [address] Performing Lab: [facility] [address] [address] .OCCULT BLOOD(FIT) POSITIVE Social History: Smoking Status (Most current) and Tobacco Use (All prior to encounter date) This section includes the most current, and the historical, smoking and tobacco- related health factors from the [place] facility where the Encounter took place. Current Smoking Status This section includes the most current smoking, or tobacco-related health factor, from the [place] facility where the Encounter took place. Date/Time Current Smoking Status Comment Facil ity Nov 05, 2023 01:30 PM VA-TOBACCO FORMER USER [facility] Tobacco Use History This section includes a history of the smoking, or tobacco-related health factors, that were collected on or before the date of the Encounter. The data comes from the [place] facility where the Encounter took place. Date/Time Smoking Status/Tobacco Use Comment F acility Nov 05, 2023 01:30 PM VA-TOBACCO QUIT 15 YRS OR MORE [facility] Oct 28, 2022 01:00 PM VA-TOBACCO FORMER USER [facility] Oct 28, 2022 01:00 PM VA-TOBACCO QUIT 5 TO < 15 YRS [facility] Feb 01, 2020 03:56 PM VA-TOBACCO FORMER USER [facility] Feb 01, 2020 03:56 PM VA-TOBACCO QUIT 5 TO < 15 YRS [facility] Jan 26, 2019 09:50 AM VA-TOBACCO FORMER USER [facility] Jan 26, 2019 09:50 AM VA-TOBACCO QUIT 1 TO < 5 YRS [facility] Feb 03, 2018 03:53 PM FORMER TOBACCO USE <1Y [facility] Jun 14, 2016 11:06 AM CURRENT TOBACCO USER [facility] Advance Directives: All historical and current Section Date Range: From patient's date of to the date document was created. This section includes ALL of a patient's completed or amended VA Advance and Rescinded Directives. The entries below indicate that a directive exists for the patient, but an actual copy is not included with this document. The data comes from all [place] facilities. Date Advance Directives Provider Source Jan 02, 2023 STATE-AUTHORIZED PORTABLE ORDERS [facility] Radiology Reports: +/- 30 days of the [...] the Encounter. The data comes from all [place] treatment facilities. Date/Time Radiology Report Provider Source Jan 08, 2024 08:00 PM MRI-BRAIN (P): ALEXIS CARRILLOMao TAYLOR [id number] -1950 Ex Date: JAN 08, 2024@20:00 Req Phys: ROSEANN GAMA Loc: [facility] EYE RESIDENT FOL/UP (Req'g Img Loc: MRI IMAGING Service: [place] [address] (Case [id number] COMPLETE) MRI BRAINBRAINSTEM W & W/O CONTRA(MRI Detailed) CPT:10861 Contrast Media : Gadolinium Reason for Study: gradual right eye vision loss over with right optic nerve atroph (Case [id number] COMPLETE) MRI NECK/FACE/ORBIT W/CONTRAST (MRI Detailed) CPT:35180 Contrast Media : Gadolinium Clinical History: Per Joint Commission Standards, by signing this diagnostic imaging request the ordering provider confirms they have considered patients age and recent imaging history. Did the ordering provider speak with a senior safety management consultant regarding this imaging exam? 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 on exam concerning for compressive mass on optic nerve pathway Responsible provider name and phone number to notify for critical findings if other than user placing the order and pager listed below: User placing orders pager: [phone] LAST CREATININE 1.2 (10/07/23) Allergies: Patient has answered NKA Report Status: Verified Date Reported: JAN 09, 2024 Date Verified: JAN 09, 2024 [place] E-Sig:/ES/OSBALDO RODGERS MD Report: MRI BRAINBRAINSTEM W & W/O CONTRAST, MRI NECK/FACE/ORBIT W/CONTRAST 01/08/2024 8:00 PM HISTORY: 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 TECHNIQUE: MRI of the brain was performed before and after the administration of intravenous contrast. MRI of the orbits was performed before and after the administration of intravenous contrast. CONTRAST: Gadavist 10 mL. COMPARISON: None. FINDINGS: This study is overall mild to moderately degraded by motion artifact, particularly on the orbital and postcontrast sequences. No intracranial mass or abnormal enhancement is evident. Several nonenhancing FLAIR hyperintense foci in the bilateral supratentorial white matter are nonspecific, but likely reflect mild chronic microangiopathic change in this 73-year-old patient. The brain parenchyma otherwise demonstrates normal attenuation and morphology. There is no evidence of an acute infarct. There is mild age-appropriate generalized cerebral volume loss, without evidence of superimposed hydrocephalus. No intracranial hemorrhage is identified. The major intracranial vascular flow voids are visualized. There is apparent slightly diminished volume involving the right optic nerve compared to the left, with slight compensatory increase in cerebrospinal fluid volume in the right optic nerve sheath. No obvious abnormal T2 prolongation is identified in the optic nerves, optic chiasm, or optic tracts within the limitations of motion artifact. No definite abnormal enhancement of these structures is evident. The normal bilateral orbital fat is preserved. No discrete mass is identified in either orbital region. The lacrimal glands, ocular globes, and extraocular muscles are unremarkable. A small mucous retention cyst in the inferior left maxillary sinus and a small focus of fluid in a right anterolateral mastoid air cell are suspected to be incidental. The bilateral paranasal sinuses and mastoid air cells are otherwise well aerated. Impression: 1. Mild to moderately suboptimal study due to motion artifact, particularly on the orbital and postcontrast sequences. 2. Probable slight asymmetrically diminished volume involving the right optic nerve, in keeping with the patient's reported right optic nerve atrophy. No evidence of obvious signal abnormality or enhancement involving the right optic nerve within the limitations of motion artifact. No mass is identified compressing the right optic nerve. 3. Otherwise, grossly unremarkable MR evaluation of the orbital structures without and with contrast on this motion-degraded study. 4. No evidence of acute intracranial pathology or mass. 5. Mild chronic microangiopathic change involving the supratentorial white matter. 6. Age-appropriate mild generalized cerebral volume loss. Primary Interpreting Staff: OSBALDO RODGERS MD, RADIOLOGIST ([place]) /[facility] OSBALDO RODGERS [facility] Jan 06, 2024 03:24 PM CHEST 1 VIEW: GILDA CARRILLO RAY [id number] -1950 M Exm Date: JAN 06, 2024@15:24 Req Phys: ANNI BUCKLEY Pat Loc: [facility] EMERGENCY DEPT WALK-IN (Re Img Loc: MAIN X-RAY Service: [place] [address] (Case [id number] COMPLETE) CHEST 1 VIEW (RAD Detailed) CPT:50874 Proc Modifiers : PORTABLE EXAM Reason for Study: Shortness of breath, cough Clinical History: IS under investigation (PUI) for COVID-19 or is COVID-19+ Shortness of breath, cough, worsening over 1-2 weeks. Hx of CHF, COPD, AFib on eliquis. Responsible provider name and phone number to notify for critical findings if other than user placing the order and pager listed below: User placing orders pager: LAST CREATININE 1.0 (01/06/24) Report Status: Verified Date Reported: JAN 06, 2024 Date Verified: JAN 06, 2024 [place] E-Sig:/ES/BHARAT PARKER MD Report: EXAMINATION: CHEST 1 VIEW 01/06/2024 3:24 PM INDICATION: Shortness of breath, cough Impression: Chronic blunting of the right costophrenic angle. Heart size and pulmonary vascularity within normal limits. Strands of fibrosis along both lung bases. No pulmonary infiltrate or acute pleural effusions identified. Question calcification along portions of the left hemidiaphragm. Old healed right rib fractures. Degenerative changes of the spine and both shoulders. No significant change since 10/28/2022. Primary Interpreting Staff: BHARAT PARKER MD, RADIOLOGIST ([place]) /RTS BHARAT PARKER [facility] Encounter Notes: All associated encounter notes This section contains the clinical notes associated to the Encounter. Date/Time Encounter Note(s) Provider Source Jan 21, 2024 11:34 AM PRIMARY CARE NOTE: LOCAL TITLE: POST DISCHARGE CONTACT STANDARD TITLE: PRIMARY CARE NOTE DATE OF NOTE: JAN 21, 2024@11:34 ENTRY DATE: JAN 21, 2024@11:34:20 AUTHOR: NIRU SUAZO EXP COSIGNER: URGENCY: STATUS: COMPLETED POST DISCHARGE CONTACT Has ADDENDA Location of Discharge: Emergency Department/Urgent Care Contact attempt: 1st identified by the following: Full Name Date of Contact made through telephone call Reason for hospitalization/Emergency Department/Urgent Care visit: SOB and cough/wheezing [place]/Caregiver states condition has improved. Symptoms to monitor for health maintenance: return of SOB and wheezing Confirmed the below changes to medications, equipment or supplies: states he has completed the prednisone and antibiotic Medications, equipment or supplies were obtained/purchased. - requests a refill of his albuterol HFA and Kerlix 4x4 gauze. He still has his nebulizer, but is completely out of his HFA. only has one roll of Kerlix left. Refills requested, will follow up with pharmacy. -Also, is asking for a new prescription for Stiolto which is no longer on his medication list. Per CPRS, it appears it was ordered during hospitalization: Activity: 10/30/2022 09:00 New Order entered by GREY GUZMAN (PHARMACIST) Order Text: OLODATEROL/TIOTROP 2.5MCG/ACTUAT 60D INH 2 PUFFS INHL QDAY Indication: FOR COPD Nature of Order: VERBAL Released by: GREY GUZMAN (PHARMACIST) on 10/30/2022 09:01 Elec Signature: CARROLL HUMPHREYS (RESIDENT) on 10/30/2022 09:43 Nurse Verified: ENZO ANDERSON (REGISTERED NURS) on 10/30/2022 09:11 Junior Manufacturing Engineer Verified: EARNEST CARABALLO (MEDICAL SUPPORT) on 10/30/2022 12:49 Chart Reviewed: BRI BAPTISTE (REGISTERED NURS) on 10/30/2022 20:05 11/06/2022 15:07 Auto-Discontinued by PHARMACY Patient Movement: DISCHARGE on 11/06/2022 15:07 from CARDIOLOGY CARDS Primary Diagnosis at Discharge: Chronic Obstructive Pulmonary Disease (COPD) Reviewed signs that [place] is stable: usual activity level; usual amounts of cough, phlegm/mucus; sleeps well at night; appetite is good. Reviewed early warning signs and when to call Designated Medical Provider: more shortness of breath than usual; less energy; increased thicker phlegm/mucus; using rescue inhalers more often than usual; medication not helping; poor sleep. Instructed to go to the Emergency Room or call 911 for severe shortness of breath even at rest; unable to do activity; fever or chills; feeling confused or drowsy; chest pain; coughing up blood. Comment: mailed [facility] Follow up Service Referrals: Other: [place] is requesting compression that is easier to don and doff on his own, such as the [employer] wraps. Noted that his home therapy teacher, Dianne, would need to obtain the necessary measurements to order. Requesting assistance from [employer] to fax form. Future Appointments: Informed, discussed and confirmed next scheduled appointments Education Provided: Length of time spent: 15 minutes To covering provider to review request for new prescription for Stiolto Respimat, see above. /nacho SUAZO RN REGISTERED NURSE Signed: 01/21/2024 18:35 Receipt Acknowledged By: 01/23/2024 08:50 /nacho STANFORD LPN LICENSED PRACTICAL NURSE 01/23/2024 ADDENDUM STATUS: COMPLETED Sent a fax to home care with [employer] Wrap instructions. Also called to home care and left a voice mail to Yoselin. [facility] cell phone number provided for a call back. /nacho STANFORD LPN LICENSED PRACTICAL NURSE Signed: 01/23/2024 10:04 NIRU SUAZO OC
--- OUTSIDE RECORDS SUMMARY | 2024-03-25 10:33 | XMS_ITS | Encounter Summary ---
Author Name [facility] [place] Organization [facility] [place] Address [address] [place] [address] Care Team Providers Care Plant Science Professor Name Role Phone ALIYA MICHEL Primary Care Provider Unava ilable Insurance [...] PART A Jul 21, 2014 PART A [id number] Miguelito CARRILLO PATIENT Selected Encounter This section includes the information on record at [place] for the Encounter. Date/Time Encounter Type Encounter Description Reason Pro vider Source Feb 13, 2024 01:24 PM Outpatient Encounter TELEPHONE BY STAFF IHE Encounter Template Text not used by [place] Plan of Treatment: Future Appointments (+ 6 months) and Future Tests (+/- 45 days) The Plan of Treatment section includes future care activities for the patient from all [place] treatmentfacilities. This section includes future appointments and future orders which are active, pending or scheduled. Future Appointments This section includes appointments that were scheduled to occur 6 months from the date of the Encounter, up to a maximum of 20 appointments. The data comes from all [place] treatment facilities. Appointment Date/Time Appointment Type Appointme nt Facility Name Feb 19, 2024 02:15 PM AMBULATORY - MEDICINE [facility] Feb 26, 2024 10:00 AM AMBULATORY - NONE [facility] Mar 29, 2024 01:00 PM AMBULATORY - SURGERY [facility] Mar 29, 2024 02:00 PM AMBULATORY - SURGERY [facility] Mar 30, 2024 08:30 AM AMBULATORY - REHAB MEDICIN E [facility] Apr 01, 2024 10:00 AM AMBULATORY - NONE [facility] Apr 12, 2024 10:15 AM AMBULATORY - SURGERY [facility] Apr 13, 2024 01:15 PM AMBULATORY - MEDICINE [facility] Apr 13, 2024 01:30 PM AMBULATORY - MEDICINE [facility] Apr 13, 2024 02:00 PM AMBULATORY - MEDICINE [facility] Apr 15, 2024 01:45 PM AMBULATORY - SURGERY [facility] May 06, 2024 04:00 PM AMBULATORY - MEDICINE [facility] May 12, 2024 02:00 PM AMBULATORY - MEDICINE [facility] May 12, 2024 03:00 PM AMBULATORY - MEDICINE [facility] Active, Pending, and [...] of theEncounter. The data comes from all [facility]. Test Date/Time Test Type Test Details Facility Name Jan 06, 2024 12:00 AM Laboratory - Chemi stry Order BNP PLASMA SP ONCE [facility] Feb 27, 2024 12:50 PM Consult Order OT OCCUPAT IONAL THERAPY OUTPT EQUIPMENT Cons Range Ecologist's Choice [facility] Lab Results: +/- 30 days of the [...] Range Comment Feb 12, 2024 12:12 PM [facility] BASIC METABOLIC PANEL+MG Specimen Type: PLASMA No comment entered. Ordering Provider: FLAQUITO VIRGEN Report Released Date/Time: Feb 04, 2024 02:58 PM Reporting Lab: [facility] [id number] Performing Lab: [facility] [id number] CREATININE 1.4 mg/dL H 0.7-1.2 UREA NITROGEN 21 mg/dL 8-26 GLUCOSE 135 mg/dL H 70-100 SODIUM 136 mmol/L 136-145 POTASSIUM 4.0 mmol/L 3.5-5.1 CHLORIDE 100 mmol/L 98-107 CO2 25 mmol/L 22-29 CALCIUM 9.3 mg/dL 8.4-10.2 MAGNESIUM 2.2 mg/dL 1.6-2.6 ANION GAP 11 mmol/L 5-15 .CREAT EGFR(CKD-EPI ) 53 L >60 Feb 04, 2024 01:40 PM [facility] BNP Specimen Type: PLASMA No comment entered. Ordering Provider: FLAQUITO VIRGEN Report Released Date/Time: Aug 13, 2023 11:38 AM Reporting Lab: [facility] [id number] Performing Lab: [facility] [id number] BNP 23 pg/mL <99 Feb 04, 2024 01:40 PM [facility] BASIC METABOLIC PANEL+MG Specimen Type: PLASMA No comment entered. Ordering Provider: FLAQUITO VIRGEN Report Released Date/Time: Aug 13, 2023 11:38 AM Reporting Lab: [facility] [id number] Performing Lab: [facility] [id number] CREATININE 1.2 mg/dL 0.7-1.2 UREA NITROGEN 18 mg/dL 8-26 GLUCOSE 102 mg/dL H 70-100 SODIUM 140 mmol/L 136-145 POTASSIUM 4.1 mmol/L 3.5-5.1 CHLORIDE 102 mmol/L 98-107 CO2 27 mmol/L 22-29 CALCIUM 10.0 mg/dL 8.4-10.2 MAGNESIUM 2.3 mg/dL 1.6-2.6 ANION GAP 11 mmol/L 5-15 .CREAT EGFR(CKD-EPI ) 63 >60 Social History: Smoking Status (Most current) and Tobacco Use (All prior to encounter date) This section includes the most current, and the historical, smoking and tobacco- related health factors from the [place] facility where the Encounter took place. Current Smoking Status This section includes the most current smoking, or tobacco-related health factor, from the [place] facility where the Encounter took place. Date/Time Current Smoking Status Comment Tasha paigey Dec 19, 2020 12:07 PM VA-TOBACCO FORMER USER [facility] Tobacco Use History This section includes a history of the smoking, or tobacco-related health factors, that were collected on or before the date of the Encounter. The data comes from the [place] facility where the Encounter took place. Date/Time [...] ALL of a patient's completed or amended [place] Advance and Rescinded Directives. The entries below indicate that a directive exists for the patient, but an actual copy is not included with this document. The data comes from all [facility]. Date Advance Directives Provider Source Jan 02, 2023 STATE-AUTHORIZED PORTABLE ORDERS [facility] Pathology Reports: +/- 30 days of the encounter Pathology Reports For cases when an order for pathology services may have been completed prior to the date of the Encounter, the report list includes the Pathology Reports that were completed up to 30 days before dateof the Encounter. For cases when an order for pathology services may have been completed after the date of the Encounter, the report list also includes the Pathology Reports that were completed up to30 days after date of the Encounter. The data comes from all [place] treatment facilities. Date/Time Pathology Report Provider Source Feb 23, 2024 12:25 PM LR SURGICAL PATHOL OGY REPORT: LOCAL TITLE: LR SURGICAL PATHOLOGY REPORT STANDARD TITLE: PATHOLOGY REPORT DATE OF NOTE: FEB 23, 2024@12:25:01 ENTRY DATE: FEB 23, 2024@12:25:01 AUTHOR: TANNA SMITH EXP COSIGNER: URGENCY: STATUS: COMPLETED $APHDR Reporting Lab: [facility] [CLIA# [id number]] [place] [address] - - - - - - - - - - - - - - - - - - - - - - - - - - - - - - - - - - - - - - - - MEDICAL RECORD SURGICAL PATHOLOGY - - - - - - - - - - - - - - - - - - - - - - - - - - - - - - - - - - - - - - - - PATHOLOGY REPORT Accession No. [id number] - - - - - - - - - - - - - - - - - - - - - - - - - - - - - - - - - - - - - - - - $TEXT Submitted by: Date obtained: Feb 19, 2024 - - - - - - - - - - - - - - - - - - - - - - - - - - - - - - - - - - - - - - - - Specimen (Received Feb 20, 2024 08:29): 1. POLYP CECUM COLON 1ST PASS WITHOUT AI (4&5) 2. POLYP ASCENDING COLON 1ST PASS WITHOUT AI (4&5) 3. POLYP ASCENDING COLON 2ND PASS WITH AI (4&5) 4. POLYP TRANSVERSE COLON 5. POLYP DESCENDING COLON 6. POLYP RECTUM - - - - - - - - - - - - - - - - - - - - - - - - - - - - - - - - - - - - - - - - BRIEF CLINICAL HISTORY: 1-6. Polyp Procedure: 1-6. colonoscopy - - - - - - - - - - - - - - - - - - - - - - - - - - - - - - - - - - - - - - - - PREOPERATIVE DIAGNOSIS: 1-6. R/O Adenoma - - - - - - - - - - - - - - - - - - - - - - - - - - - - - - - - - - - - - - - - OPERATIVE FINDINGS: - - - - - - - - - - - - - - - - - - - - - - - - - - - - - - - - - - - - - - - - POSTOPERATIVE DIAGNOSIS: Surgeon/physician: BRI R REININK MD =-=-=-=-=-=-=-=-=-=-=-=-=-= -=-=-=-=-=-=-=-=-=-=-=-=-=- =-=-=-=-=-=-=-=-=-=-=-=-= - - - - - - - - - - - - - - - - - - - - - - - - - - - - - - - - - - - - - - - - PATHOLOGY REPORT Accession No. [id number] - - - - - - - - - - - - - - - - - - - - - - - - - - - - - - - - - - - - - - - - GROSS DESCRIPTION: The requisition form and specimen(s) identification is confirmed. 1. The specimen is received in formalin labeled as cecum, colon 1st pass without AI (4&5) and consists of multiple ontiveros tissue fragments measuring 1.5 x 0.8 x 0.4 cm in aggregate. CE. 2. The specimen is received in formalin labeled as ascending, colon 1st pass without AI (4&5) and consists of multiple ontiveros tissue fragments measuring 2.0 x 1.0 x 0.5 cm in aggregate. CE. 3. The specimen is received in formalin labeled as ascending, colon 2nd pass with AI (4&5) and consists of one ontiveros tissue fragment measuring 0.4 cm. CE. 4. The specimen is received in formalin labeled as transverse, colon. No tissue is grossly identified in the specimen container. The formalin from the specimen container will be filtered. CE. 5. The specimen is received in formalin labeled as descending, colon and consists of multiple ontiveros tissue fragments measuring 2.5 x 1.0 x 0.3 cm in aggregate. CE. 6. The specimen is received in formalin labeled as rectum and consists of multiple ontiveros tissue fragments measuring 1.0 x 0.5 x 0.3 cm in aggregate. CE. RSolomon MICROSCOPIC DESCRIPTION: Microscopic examination performed. DIAGNOSIS: 1. Colon, cecum, first pass without AI (4 & 5), endoscopic polypectomy-- - Fragments of tubular adenoma - No evidence of high-grade dysplasia or malignancy 2. Colon, ascending, first pass without AI (4 & 5), endoscopic polypectomy-- - Fragments of tubular adenoma - No evidence of high-grade dysplasia or malignancy 3. Colon, ascending, second pass with AI (4 & 5), endoscopic polypectomy- - - Colonic mucosa with mild regenerative changes - No evidence of adenomatous change or malignancy 4. Colon, transverse, endoscopic polypectomy-- - No pathologic diagnosis - No tissue received 5. Colon, descending, endoscopic polypectomy-- - Fragments of tubular adenoma - Sessile serrated adenoma - No evidence of high-grade dysplasia or malignancy 6. Colon, rectum, endoscopic polypectomy-- - Fragments of hyperplastic polyp /mateo/ TANNA SMITH MD STAFF PATHOLOGIST Signed Feb 23, 2024@12:25 Performing Laboratory: Surgical Pathology Report Performed By: [facility] [CLIA# [id number]] [place] [address] $FTR - - - - - - - - - - - - - - - - - - - - - - - - - - - - - - - - - - - - - - - - (End of report) TANNA SMITH MD [facility] Date Feb 23, 2024 - - - - - - - - - - - - - - - - - - - - - - - - - - - - - - - - - - - - - - - - GILDA CARRILLO STANDARD FORM 515 ID:[id number] SEX:M :1950 AGE: 73 LOC:[id number] PCP: Aliya Michel /mateo/ TANNA SMITH MD STAFF PATHOLOGIST Signed: 02/23/2024 12:25 TANNA SMITH [facility] Encounter Notes: All associated encounter notes This section contains the clinical notes associated to the Encounter. Date/Time Encounter Note(s) Provider Source Feb 13, 2024 01:24 PM CARE COORDINATION HOME TELEHEALTH NOTE: LOCAL TITLE: HT NOTE STANDARD TITLE: CARE COORDINATION HOME TELEHEALTH NOTE DATE OF NOTE: FEB 13, 2024@13:24 ENTRY DATE: FEB 13, 2024@13:24:15 AUTHOR: ELLA BOWDEN COSIGNER: URGENCY: STATUS: COMPLETED Diagnosis: HF Type of Contact: Message Reason for Contact: Follow-up Left a message for Hendrix on his [employer] Device. Weight coming down since Lasix was increased February 03 (Cardiology Clinic Note). Encouraged him to call HT with any questions or concerns. Provided HT number. GILDA CARRILLO [phone]) Vital Sign for: 01/31/2024 - 02/13/2024 (All times are [employer]; All weights are lbs) Primary DMP: HF Summary Weight Sys BP [place] BP HR High 353.1 133 81 93 Low 347.1 113 66 77 Average 350.3 125 72 86 Date Time Wt Time Sys [place] Time HR 02/13/2024 07:42 347.3 07:41 121/73 07:41 82 02/12/2024 04:38 347.1 04:38 127/70 04:38 93 02/10/2024 08:20 348.6 08:19 130/73 08:19 88 02/09/2024 04:54 350.9 04:53 123/66 04:53 92 02/08/2024 - 06:35 126/75 06:35 79 02/06/2024 06:04 352.9 06:03 133/78 06:03 84 02/05/2024 06:39 352.5 06:38 129/66 06:38 77 02/04/2024 - 07:27 130/81 07:27 92 02/02/2024 11:26 353.1 11:25 122/69 11:25 86 02/01/2024 - 06:49 113/72 06:49 89 Source: [employer] /es/ ELLA BOWDEN RN Chronic Supervisor Fur Floor Worker/HT Signed: 02/13/2024 13:31 Receipt Acknowledged By: 02/13/2024 13:39 /es/ ELLA CAMPOS CNP [facility]
--- OUTSIDE RECORDS SUMMARY | 2024-03-25 10:33 | XMS_ITS | Encounter Summary ---
Author Name [facility] [place] Organization [facility] [place] Address [address] [place] [address] Care Team Providers Care Goods Layer Name Role Phone GELACIO MICHEL Primary Care Provider Sarah ilrizwan Insurance Providers: All historical and current [...] PART A Jul 21, 2014 PART A [id number] Miguelito CARRILLO PATIENT Selected Encounter This section includes the information on record at [place] for the Encounter. Date/Time Encounter Type Encounter Description Reason Provider Source Feb 11, 2024 02:30 PM OFFICE O/P EST MOD 30 MIN WEIGHT MGMT & MOVE! PROG - IND ICD-10-CM Z68.41 Body mass index [BMI] 40.0-44.9, adult RASHAD REYNAGA Encounter Template Text not used by [place] Assessments - Encounter Diagnoses This section includes the primary and secondary diagnoses documented for the Encounter. Date/Time Primary/Secondary Diagnosis Diagnosis Name Provider Source Feb 11, 2024 02:41 PM PRIMARY Body mass index [BMI] 40.0-44.9, adult ROCIO SENA [facility] Plan of Treatment: Future Appointments (+ 6 months) and Future Tests (+/- 45 days) The Plan of Treatment section includes future care activities for the patient from all [facility]. This section includes future appointments and future orders which are active, pending or scheduled. Future Appointments This section includes appointments that were scheduled to occur 6 months from the date of the Encounter, up to a maximum of 20 appointments. The data comes from all [facility]. Appointment Date/Time Appointment Type Appointme nt Facility Name Feb 12, 2024 12:30 PM AMBULATORY - NONE [facility] Feb 12, 2024 01:30 PM AMBULATORY - SURGERY [facility] Feb 12, 2024 03:00 PM AMBULATORY - SURGERY [facility] Feb 19, 2024 02:15 PM AMBULATORY - MEDICINE [facility] Feb 26, 2024 10:00 AM AMBULATORY - NONE [facility] Mar 29, 2024 01:00 PM AMBULATORY - SURGERY [facility] Mar 29, 2024 02:00 PM AMBULATORY - SURGERY [facility] Mar 30, 2024 08:30 AM AMBULATORY - REHAB MEDICIN E [facility] Apr 01, 2024 10:00 AM AMBULATORY - NONE [facility] Apr 12, 2024 10:15 AM AMBULATORY - SURGERY [facility] Apr 13, 2024 01:15 PM AMBULATORY - MEDICINE [facility] Apr 13, 2024 01:30 PM AMBULATORY - MEDICINE [facility] Apr 13, 2024 02:00 PM [facility] - [facility] Apr 15, 2024 01:45 PM AMBULATORY - SURGERY [facility] May 06, 2024 04:00 PM AMBULATORY - MEDICINE [facility] May 12, 2024 02:00 PM AMBULATORY - MEDICINE [facility] May 12, 2024 03:00 PM AMBULATORY MEDICINE [facility] Active, Pending, and Scheduled Orders This section includes a listing of several types of active, pending, and scheduled orders, including clinic medications orders, diagnostic test orders, procedure orders and consult orders; where the start date of the order is 45 days before the date of the Encounter or 45 days after the date of theEncounter. The data comes from all [facility] treatment [facility]. Test Date/Time Test Type Test Details Facility Name Jan 06, 2024 12:00 AM Laboratory - Chemi stry Order BNP PLASMA SP ONCE [facility] Feb 27, 2024 12:50 PM Consult Order OT OCCUPAT IONAL THERAPY OUTPT EQUIPMENT Cons Supervisor Publications Production's Choice [facility] Lab Results: +/- 30 days of the encounter This section includes the Chemistry and Hematology Lab Results on record with [place] for the patient. Radiology Reports and Pathology Reports are provided separately, in subsequent sections. Lab Results This section contains the Chemistry/Hematology Results that were resulted 30 days before or 30 daysafter the date of the Encounter. Date/Time Source Result Type Result - Unit Interpretation Reference Range Comment Feb 12, 2024 12:12 PM [facility] BASIC METABOLIC PANEL+MG Specimen Type: PLASMA No comment entered. Ordering Provider: FLAQUITO VIRGEN Report Released Date/Time: Feb 04, 2024 02:58 PM Reporting Lab: [facility] [id number] Performing Lab: [facility] [id number] CREATININE 1.4 mg/dL H 0.7-1.2 UREA NITROGEN 21 mg/dL 8-26 GLUCOSE 135 mg/dL H 70-100 SODIUM 136 mmol/L 136-145 POTASSIUM 4.0 mmol/L 3.5-5.1 CHLORIDE 100 mmol/L 98-107 CO2 25 mmol/L 22-29 CALCIUM 9.3 mg/dL 8.4-10.2 MAGNESIUM 2.2 mg/dL 1.6-2.6 ANION GAP 11 mmol/L 5-15 .CREAT EGFR(CKD-EPI ) 53 L >60 Feb 04, 2024 01:40 PM [facility] BNP Specimen Type: PLASMA No comment entered. Ordering Provider: FLAQUITO VIRGEN Report Released Date/Time: Aug 13, 2023 11:38 AM Reporting Lab: [facility] [id number] Performing Lab: [facility] [id number] BNP 23 pg/mL <99 Feb 04, 2024 01:40 PM [facility] BASIC METABOLIC PANEL+MG Specimen Type: PLASMA No comment entered. Ordering Provider: FLAQUITO VIRGEN Report Released Date/Time: Aug 13, 2023 11:38 AM Reporting Lab: [facility] [id number] Performing Lab: [facility] [id number] CREATININE 1.2 mg/dL 0.7-1.2 UREA NITROGEN 18 [...] and tobacco- related health factors from the [place] facility where the Encounter took place. Current Smoking Status This section includes the most current smoking, or tobacco-related health factor, from the [place] facility where the Encounter took place. Date/Time Current Smoking Status Comment Facil ity Dec 19, 2020 12:07 PM VA-TOBACCO FORMER USER [facility] Tobacco Use History This section includes a history of the smoking, or tobacco-related health factors, that were collected on or before the date of the Encounter. The data comes from the [place] facility where the Encounter took place. Date/Time Smoking Status/Tobacco Use Comment F acamelia Dec 19, 2020 12:07 PM [place]-TOBACCO QUIT 5 TO < 15 YRS [facility] Aug 02, 2015 09:49 AM CURRENT TOBACCO USER [facility] Jun 06, 2014 08:51 AM CURRENT TOBACCO USER [facility] May 04, 2013 09:29 AM CURRENT TOBACCO USER [facility] Apr 24, 2012 07:40 AM CURRENT TOBACCO USER [facility] Advance Directives: All historical and current Section Date Range: From patient's date of to the date document was created. This section includes ALL of a patient's completed or amended [place] Advance and Rescinded Directives. The entries below indicate that a directive exists for the patient, but an actual copy is not included with this document. The data comes from all [place] facilities. Date Advance Directives Provider Source Jan 02, 2023 STATE-AUTHORIZED PORTABLE ORDERS [facility] Pathology Reports: +/- 30 days of the [...] the Encounter. The data comes from all [place] treatment facilities. Date/Time Pathology Report Provider Source Feb 23, 2024 12:25 PM LR SURGICAL PATHOL OGY REPORT: LOCAL TITLE: LR SURGICAL PATHOLOGY REPORT STANDARD TITLE: PATHOLOGY REPORT DATE OF NOTE: FEB 23, 2024@12:25:01 ENTRY DATE: FEB 23, 2024@12:25:01 AUTHOR: TANNA SMITH EXP COSIGNER: URGENCY: STATUS: COMPLETED $APHDR Reporting Lab: [facility] [CLIA# [id number]] [place] [address] - - - - - - - [...] - BRIEF CLINICAL HISTORY: 1-6. Polyp Procedure: 07-26. colonoscopy - - - - - - - - - - - - - - - - - - - - - - - - - - - - - - - - - - - - - - - - PREOPERATIVE DIAGNOSIS: 07-26. R/O Adenoma - - - - - [...] - - - POSTOPERATIVE DIAGNOSIS: Surgeon/physician: BRI HEALY MD =-=-=-=-=-=-=-=-=-=-=-=-=-= -=-=-=-=-=-=-=-=-=-=-=-=-=- =-=-=-=-=-=-=-=-=-=-=-=-= - - - [...] endoscopic polypectomy-- - Fragments of hyperplastic polyp /es/ TANNA SMITH MD STAFF PATHOLOGIST Signed Feb 23, 2024@12:25 Performing Laboratory: Surgical Pathology Report Performed By: [facility] [CLIA# [id number]] [place] [address] $FTR - - - - - - - - - - - - - - - - - - - - - - - - - - - - - - - - - - - - - - - - (End of report) TANNA SMITH MD bcb Date Feb 23, 2024 - - - - - - - - - - - - - - - - - - - - - - - - - - - - - - - - - - - - - - - - GILDA CARRILLO STANDARD FORM 515 ID:[id number] SEX:M :1950 AGE: 73 LOC:[id number] PCP: Gelacio Michel /es/ TANNA SMITH MD STAFF PATHOLOGIST Signed: 02/23/2024 12:25 TANNA SMITH [facility] Encounter Notes: All associated encounter notes This section contains the clinical notes associated to the Encounter. Date/Time Encounter Note(s) Provider Source Feb 11, 2024 02:25 PM ENDOCRINOLOGY ATTE KARUNA NOTE: LOCAL TITLE: METABOLIC CLINIC NOTE STANDARD TITLE: ENDOCRINOLOGY ATTENDING NOTE DATE OF NOTE: FEB 11, 2024@14:25 ENTRY DATE: FEB 11, 2024@14:25:35 AUTHOR: WINNIE SENA COSIGNER: URGENCY: STATUS: COMPLETED [facility] Note HPI [facility] Note Patient is followed for treatment of obesity associated with DM-2, Hypertension. HPI Patient is here for follow up for weight loss management Patient is currently on Semaglutade since 01/03/2023 Patient started with 402 pounds, today is 349.9 He lost about ~40 lbs. He feels better He also mentions that Patient is followed for treatment of obesity associated with DM-2, Hypertension. BMI: 44.4 (11/05/2023) BMI: 42.68 (02/04/2024) Todays weight: 364 lb [165.11 kg] (07/07/2023 08:02) Weights past 3 months Measurement DT WEIGHT LB(KG)[BMI] 02/04/2024: 349.9 11/05/2023: 360 07/07/2023: 364(165.11)[44*] 07/02/2023: 363.5(164.88)[44*] 12/2022: 401.5 Interval history: Weight change: Patient Medication effects and side effects: semaglutide 1 mg [id number]. diarrhea couple times, not very severe Patient is working on the following goal about food: Trying hard to adalberto a watch on his meals. He does have some cheat days issues with sugar craving. also portion control Patient is working on the following goal about activity: He is wheelchair bound Patient is working on the following goal about food: eating small portions and no snacks. Patient is working on the following goal about activity: no able to walk due to hip and knee problems. Blood Pressure: 112/71 (02/04/2024 14:27) Active Outpatient Medications (including Supplies): A & [...] OVERNITE [id number] USE BRIEF ACTIVE DIRECTED NEEDED CARBOXYMETHYLCELLULOSE NA 0.5% OPH SOLN INSTILL 1 DROP IN ACTIVE BOTH EYES FOUR TIMES A DAY FOR DRY EYES CLEANSING CLOTH ATTENDS PKT USE 1 WASHCLOTH TOPICALLY ACTIVE DIRECTED DICLOFENAC NA 1% TOP GEL APPLY 2 GRAMS TOPICALLY TWO TIMES ACTIVE A DAY NEEDED FOR PAIN -USE DOSE CARD IN BOX TO MEASURE DOSE -MAXIMUM OF 32 GM PER DAY DOFETILIDE 250MCG CAP TAKE ONE CAPSULE BY MOUTH TWICE A ACTIVE (S) DAY FOR ATRIAL FIBRILLATION DRESSING,MEPILEX BORDER HEEL 8.7INX9.1IN APPLY 1 DRESSING ACTIVE TOPICALLY THREE TIMES WEEKLY EMPAGLIFLOZIN 25MG TAB TAKE ONE-HALF TABLET BY MOUTH EVERY ACTIVE (S) MORNING FOR HEART FAILURE FLUTICASONE PROP 50MCG 120D NASAL INHL SPRAY 2 SPRAYS IN ACTIVE EACH NOSTRIL EVERY DAY FOR NASAL DRIP FUROSEMIDE 40MG TAB TAKE TWO TABLETS BY MOUTH EVERY ACTIVE MORNING AND TAKE ONE TABLET EVERY EVENING FOR EXCESS FLUID GABAPENTIN 400MG CAP TAKE ONE CAPSULE BY MOUTH FOUR TIMES ACTIVE A DAY FOR PAIN AND NUMBNESS GUAIFENESIN 200MG TAB TAKE TWO TABLETS BY MOUTH THREE ACTIVE TIMES A DAY FOR COPD/COUGH/MUCUS KERLIX 4.5IN STERILE USE 1 BANDAGE TOPICALLY DIRECTED ACTIVE LIDOCAINE 5% PATCH APPLY 3 PATCHES TOPICALLY EVERY DAY FOR ACTIVE PAIN. WEAR FOR ONLY 12 HOURS THEN REMOVE FOR 12 HOURS. ONE PATCH FOR EACH HIP AND ONE PATCH FOR LOW BACK LOSARTAN 50MG TAB TAKE ONE TABLET BY MOUTH EVERY MORNING ACTIVE FOR HEART FAILURE LUBRICATING (PF) OPH OINT APPLY A SMALL AMOUNT TO BOTH ACTIVE EYES AT BEDTIME FOR DRY EYES NYSTATIN 826709 UNT/GM CREAM APPLY THIN LAYER TOPICALLY ACTIVE TWICE A DAY FUNGAL INFECTION EXTERNAL USE ONLY APPLY TO PANNUS POLYETHYLENE GLYCOL 3350 ORAL PWDR TAKE 17 GRAMS BY MOUTH ACTIVE EVERY DAY NEEDED FOR CONSTIPATION POTASSIUM CL 20MEQ SA TAB (DISPERSIBLE) TAKE TWO TABLETS ACTIVE BY MOUTH TWICE A DAY FOR POTASSIUM SUPPLEMENT SEMAGLUTIDE 2MG/0.75ML INJ PEN 3ML INJECT 2MG UNDER THE ACTIVE SKIN EVERY WEEK FOR DIABETES SKIN PREP WIPE USE 1 WIPE TOPICALLY THREE TIMES A WEEK ACTIVE REPLACES SKIN BARRIER FILM DUE TO BACKORDER [...] 36IN PLASTIC BACK USE CHUX ACTIVE DIRECTED VANICREAM TOP CREAM APPLY THIN LAYER TOPICALLY EVERY DAY ACTIVE IDEALLY WITHIN 3 MINUTES AFTER BATH OR SHOWER. TO ALL AREAS OF SKIN FOR MOISTURIZER FOR DRY SKIN ZINC OXIDE 20% OINT APPLY SMALL AMOUNT TOPICALLY THREE ACTIVE TIMES A WEEK NEEDED FOR WOUND PREVENTION Assessment and Plan: Assessment and Plan: 1. Morbid obesity Patient is currently on Ozempic 1 mg weekly. He has lost about 30 lbs. He is working hard with his diet. His main issue with sugar craving. Also with portion control. - Advise to continue with Semaglutide 2mg - Advise to continue to work with his diet to reduce carb intake - Advise against snacking - Reduce calorie intake to < 1800 ramona/day - Follow in 4 months as [facility] visit Time spent 30 minutes /mateo/ THIAGO SENA Endocrinology Fellow Signed: 02/11/2024 14:28 Receipt Acknowledged By: 02/11/2024 14:41 /mateo/ FREDIS REYNAGA M.D. Chief, Endocrinology and Metabolism THIAGO SENA [facility]
--- OUTSIDE RECORDS SUMMARY | 2024-03-25 10:33 | XMS_ITS | Encounter Summary ---
Author Name [facility] [place] Organization [facility] [place] Address [address] [place] [address] Care Team Providers Care Planisher Name Role Phone GELACIO MICHEL Primary Care Provider Sraah ilrizwan Insurance Providers: All historical and current [...] PART A Jul 21, 2014 PART A [id number] Miguelito CARRILLO PATIENT Selected Encounter This section includes the information on record at [place] for the Encounter. Date/Time Encounter Type Encounter Description Reason Provider Source Feb 04, 2024 02:30 PM OFFICE O/P EST HI 40 MIN CARDIOLOGY ICD-10-CM I50.30 Unspecified diastolic (congestive) heart failure [facility] Encounter Template Text not used by [place] Assessments - Encounter Diagnoses This section includes the primary and secondary diagnoses documented for the Encounter. Date/Time Primary/Secondary Diagnosis Diagnosis Name Provider Source Feb 04, 2024 03:06 PM PRIMARY Unspecified diastolic (congestive) heart failure [facility] Feb 04, 2024 03:06 PM SECONDARY Hypertensive heart disease with heart failure [facility] Feb 04, 2024 03:06 PM SECONDARY Other persistent atrial fibrillation [facility] Plan of Treatment: Future Appointments (+ 6 months) and Future Tests (+/- 45 days) The Plan of Treatment section includes future care activities for the [facility] [place] [facility] This section includes future appointments and future orders which are active, pending or scheduled. Future Appointments This section includes appointments that were scheduled to occur 6 months from the date of the Encounter, up to a maximum of 20 appointments. The data comes from all [facility]. Appointment Date/Time Appointment Type Appointme nt Facility Name Feb 11, 2024 02:30 PM [facility] Feb 12, 2024 12:30 PM AMBULATORY - NONE [facility] Feb 12, 2024 01:30 PM AMBULATORY - SURGERY [facility] Feb 12, 2024 03:00 PM AMBULATORY - SURGERY [facility] Feb 19, 2024 02:15 PM [facility] Feb 26, 2024 10:00 AM AM[facility]ATORY - NONE [facility] Mar 29, 2024 01:00 PM AMBULATORY - SURGERY [facility] Mar 29, 2024 02:00 PM AMBULATORY - SURGERY [facility] Mar 30, 2024 08:30 [facility] Apr 01, 2024 10:00 AM [facility] - NONE [facility] Apr 12, 2024 10:15 AM AMBULATORY - SURGERY [facility] Apr 13, 2024 01:15 PM [facility] Apr 13, 2024 01:30 PM [facility] Apr 13, 2024 02:00 PM [facility] Apr 15, 2024 01:45 PM AM[facility]UL[facility] - SURGERY [facility] May 06, 2024 04:00 PM [facility] May 12, 2024 02:00 [facility] May 12, 2024 03:00 PM [facility] Active, Pending, and Scheduled Orders This section includes a listing of several types of active, pending, and scheduled orders, including clinic medications orders, diagnostic test orders, procedure orders and consult orders; where the start date of the order is 45 days before the date of the Encounter or 45 days after the date of theEncounter. The data comes from all [place] treatment facilities. Test Date/Time Test Type Test Details Facility Name Jan 06, 2024 12:00 AM Laboratory - Chemi stry Order BNP PLASMA SP ONCE [facility] Feb 27, 2024 12:50 PM Consult Order OT OCCUPAT IONAL THERAPY OUTPT EQUIPMENT Cons [facility] PASHA NICHOLS Lab Results: +/- 30 days of the encounter This section includes the Chemistry and Hematology Lab Results on record with [place] for the patient. Radiology Reports and Pathology Reports are provided separately, in subsequent sections. Lab Results This section contains the Chemistry/Hematology Results that were resulted 30 days before or 30 daysafter the date of the Encounter. Date/Time Source Result Type Result - Unit Interpretation Reference Range Comment Feb 12, 2024 12:[address] [facility] BASIC METABOLIC PANEL+MG Specimen Type: PLASMA No comment entered. Ordering Provider: BRIGITTE VIRGEN Report Released Date/Time: Feb 04, 2024 02:58 PM Reporting Lab: [facility] [phone] Performing Lab: [facility] [phone] CREATININE 1.4 mg/dL H 0.7-1.2 UREA NITROGEN 21 mg/dL 8-26 GLUCOSE 135 mg/dL H 70-100 SODIUM 136 mmol/L 136-145 POTASSIUM 4.0 mmol/L 3.5-5.1 CHLORIDE 100 mmol/L 98-107 CO2 25 mmol/L 22-29 CALCIUM 9.3 mg/dL 8.4-10.2 MAGNESIUM 2.2 mg/dL 1.6-2.6 ANION GAP 11 mmol/L 5-15 .CREAT EGFR(CKD-EPI) 53 L >60 Feb 04, 2024 01:[address] [facility] BNP Specimen Type: PLASMA No comment entered. Ordering Provider: BRIGITTE VIRGEN Report Released Date/Time: Aug 13, 2023 11:38 AM Reporting Lab: [facility] [phone] Performing Lab: [facility] [phone] BNP 23 pg/mL <99 Feb 04, 2024 01:[address] [facility] BASIC METABOLIC PANEL+MG Specimen Type: PLASMA No comment entered. Ordering Provider: BRIGITTE VIRGEN Report Released Date/Time: Aug 13, 2023 11:38 AM Reporting Lab: [facility] [phone] Performing Lab: [facility] [phone] CREATININE 1.2 mg/dL 0.7-1.2 UREA NITROGEN 18 mg/dL 8-26 GLUCOSE 102 mg/dL H 70-100 SODIUM 140 mmol/L 136-145 POTASSIUM 4.1 mmol/L 3.5-5.1 CHLORIDE 102 mmol/L 98-107 CO2 27 mmol/L 22-29 CALCIUM 10.0 mg/dL 8.4-10.2 MAGNESIUM 2.3 mg/dL 1.6-2.6 ANION GAP 11 mmol/L 5-15 .CREAT EGFR(CKD-EPI) 63 >60 Jan 06, 2024 03:[address] [facility] COVID-19 DIAGNOSTIC PANEL (BIOFIRE) Specimen Type: NASOPHARYNGEAL Comment: Biofire Torch (818) Ordering Provider: ROXANNE BUCKLEY Report Released Date/Time: Jan 06, 2024 03:22 PM Reporting Lab: [facility] [phone] Performing Lab: [facility] [phone] C PNEUMONIAE PCR NOT DETECTED NOT DETECTED [...] NOT DETECTED Jan 06, 2024 03:[address] [facility] POC CREATININE Specimen Type: BLOOD No comment entered. Ordering Provider: ALLISON PARRA Report Released Date/Time: Jan 06, 2024 03:24 PM Reporting Lab: [facility] [phone] Performing Lab: [facility] [phone] POC CREATININE 1.5 mg/dL 0.6-1.3 Jan 06, 2024 03:[address] [facility] POC ABG/LACTATE Specimen Type: VENOUS BLOOD No comment entered. Ordering Provider: ALLISON PARRA Report Released Date/Time: Jan 06, 2024 03:24 PM Reporting Lab: [facility] [phone] Performing Lab: [facility] [phone] POC PH 7.402 7.31-7.41 POC PCO2 50.1 mm[Hg] 41-51 POC PO2 24 mm[Hg] POC TCO2 33 mmol/L 24-29 POC HCO3 31.2 mmol/L 23-28 POC BE ECT 6 mmol/L -2-3 POC SO2 41 POC LACTATE <1.6 mmol/L 0.90-1.70 Jan 06, 2024 03:[address] [facility] EXTRA BLUE TUBE Specimen Type: PLASMA No comment entered. Ordering Provider: ROXANNE BUCKLEY Report Released Date/Time: Jan 06, 2024 03:36 PM Reporting Lab: [facility] [phone] Performing Lab: [facility] [phone] EXTRA BLUE TUBE RECEIVED Jan 06, 2024 03:[address] [facility] BNP Specimen Type: PLASMA No comment entered. Ordering Provider: ROXANNE BUCKLEY Report Released Date/Time: Jan 06, 2024 03:22 PM Reporting Lab: [facility] [phone] Performing Lab: [facility] [phone] BNP 18 pg/mL <99 Jan 06, 2024 03:[address] [facility] TROPONIN I, HS Specimen Type: PLASMA No comment entered. Ordering Provider: ROXANNE BUCKLEY Report Released Date/Time: Jan 06, 2024 03:22 PM Reporting Lab: [facility] [phone] Performing Lab: [facility] [phone] TROPONIN I, HS <3 <35 Jan 06, 2024 03:[address] [facility] EXTRA GOLD GEL TUBE Specimen Type: SERUM No comment entered. Ordering Provider: ROXANNE BUCKLEY Report Released Date/Time: Jan 06, 2024 03:36 PM Reporting Lab: [facility] [phone] Performing Lab: [facility] [phone] EXTRA GOLD GEL TUBE RECEIVED Jan 06, 2024 03:[address] [facility] CBC & DIFF Specimen Type: BLOOD Comment: Automated Differential Performed Ordering Provider: ROXANNE BUCKLEY Report Released Date/Time: Jan 06, 2024 03:22 PM Reporting Lab: [facility] [phone] Performing Lab: [facility] [phone] WBC 11.27 10*3/uL H 4.0-11.0 RBC 4.81 [...] 10*3/uL 0-0.1 Jan 06, 2024 11:[address] [facility] BASIC METABOLIC PANEL+MG Specimen Type: PLASMA No comment entered. Ordering Provider: HITESH HOLGUIN Report Released Date/Time: Oct 07, 2023 02:47 PM Reporting Lab: [facility] [phone] Performing Lab: [facility] [phone] CREATININE 1.0 mg/dL 0.7-1.2 UREA NITROGEN 16 mg/dL 8-26 GLUCOSE 112 mg/dL H 70-100 SODIUM 137 mmol/L 136-145 POTASSIUM 4.1 mmol/L 3.5-5.1 CHLORIDE 101 mmol/L 98-107 CO2 26 mmol/L 22-29 CALCIUM 9.6 mg/dL 8.4-10.2 MAGNESIUM 2.4 mg/dL 1.6-2.6 ANION GAP 10 mmol/L 5-15 .CREAT EGFR(CKD-EPI) 79 >60 Vital Signs: All taken on the encounter date This section contains inpatient and outpatient Vital Signs collected on the date of the Encounter. Date/Time Temperature Pulse Blood Pressure Respiratory Rate SP02 Pain Height Weight Body Mass Index Source Feb 04, 2024 02:27 PM 97.5 95 112/71 16 91 0 349.9 [facility] Social History: Smoking Status (Most current) and Tobacco Use (All prior to encounter date) This section includes the most current, and the historical, smoking and tobacco- related health factors from the [place] facility where the Encounter took place. Current Smoking Status This section includes the most current smoking, or tobacco-related health factor, from the [place] facility where the Encounter took place. Date/Time Current Smoking Status Comment Tasha woods Dec 19, 2020 12:07 PM VA-TOBACCO FORMER USER [facility] Tobacco Use History This section includes a history of the smoking, or tobacco-related health factors, that were collected on or before the date of the Encounter. The data comes from the [place] facility where the Encounter took place. Date/Time Smoking Status/Tobacco Use Comment F acamelia Dec 19, 2020 12:07 PM [place]-TO[place]AC[place] QUIT 5 TO < [address] [facility] Aug 02, 2015 09:49 AM CURRENT TOBACCO USER [facility] Jun 06, 2014 08:51 AM CURRENT TOBACCO USER [facility] May 04, 2013 09:29 AM CURRENT TOBACCO USER [facility] Apr 24, 2012 07:40 AM CURRENT TOBACCO USER [facility] Advance Directives: All historical and current Section Date Range: From patient's date of to the date document was created. This section includes ALL of a patient's completed or amended [place] Advance and Rescinded Directives. The entries below indicate that a directive exists for the patient, but an actual copy is not included with this document. The data comes from all [place] facilities. Date Advance Directives Provider Source Jan 02, 2023 STATE-AUTHORIZED PORTABLE ORDERS NATALYA GonzalezPHOENIX Alber [facility] Radiology Reports: +/- 30 days of the [...] the Encounter. The data comes from all [place] treatment facilities. Date/Time Radiology Report Provider Source Jan 08, 2024 08:00 PM MRI-BRAIN (P): GREARDOGILDA RAY [id number] -1950 [facility] Date: JAN 08, 2024@20:00 Req Phys: ROSEANN GAMA Loc: [facility] EYE RESIDENT FOL/UP (Req'g Img Loc: MRI IMAGING Service: [place] [address] (Case [id number] COMPLETE) MRI BRAINBRAINSTEM W & W/O CONTRA(MRI Detailed) CPT:86574 Contrast Media : Gadolinium Reason for Study: gradual right eye vision loss over with right optic nerve atroph (Case [id number] COMPLETE) MRI NECK/FACE/ORBIT W/CONTRAST (MRI Detailed) CPT:64539 Contrast Media : Gadolinium Clinical History: Per Joint Commission Standards, by signing this diagnostic imaging request the ordering provider confirms they have considered patients age and recent imaging history. Did the ordering provider speak with a nurse consultant regarding this imaging exam? Yes, Name of nurse consultant (resident or staff):Chidi Espinoza MD gradual right eye vision loss over with right optic nerve atrophy on exam concerning for compressive mass on optic nerve pathway Responsible provider name and phone number to notify for critical findings if other than user placing the order and pager listed below: User placing orders pager: [phone] LAST CREATININE 1.2 (10/07/23) Allergies: Patient has answered NKA Report Status: Verified Date Reported: JAN 09, 2024 Date Verified: JAN 09, 2024 Surgery Technician E-Sig:/ES/OSBALDO RODGERS MD Report: MRI BRAINBRAINSTEM W [...] Primary Interpreting Staff: OSBALDO RODGERS MD, RADIOLOGIST (Surgery Technician) /[facility] OSBALDO RODGERS [facility] Jan 06, 2024 03:24 PM CHEST 1 VIEW: GILDA CARRILLO RAY [id number] -1950 M Exm Date: JAN 06, 2024@15:24 Req Phys: MARCIOANNI Alber Pat Loc: [facility] EMERGENCY DEPT WALK-IN (Re Img Loc: MAIN X-RAY Service: [place] [address] (Case [id number] COMPLETE) CHEST 1 VIEW (RAD Detailed) CPT:63265 Proc Modifiers : PORTABLE EXAM Reason for [...] 06, 2024 Date Verified: JAN 06, 2024 Surgery Technician E-Sig:/ES/BHARAT PARKER MD Report: EXAMINATION: CHEST 1 [...] Primary Interpreting Staff: BHARAT PARKER MD, RADIOLOGIST (Surgery Technician) /RTS BHARAT PARKER [facility] Pathology Reports: +/- 30 days of the [...] the Encounter. The data comes from all [place] treatment facilities. Date/Time Pathology Report Provider Source Feb 23, 2024 12:25 PM LR SURGICAL PATHOL OGY REPORT: LOCAL TITLE: LR SURGICAL PATHOLOGY REPORT STANDARD TITLE: PATHOLOGY REPORT DATE OF NOTE: FEB 23, 2024@12:25:01 ENTRY DATE: FEB 23, 2024@12:25:01 AUTHOR: TANNA SMITH EXP COSIGNER: URGENCY: STATUS: COMPLETED $APHDR Reporting Lab: [facility] [CLIA# [id number]] [place] [address] - - - - - - - [...] Performing Laboratory: Surgical Pathology Report Performed By: [facility] [CLIA# [id number]] [place] [address] $FTR - - - - - - - - - - - - - - - - - - - - - - - - - - - - - - - - - - - - - - - - (End of report) TANNA SMITH MD [facility] Date Feb 23, 2024 - - - - - - - - - - - - - - - - - - - - - - - - - - - - - - - - - - - - - - - - GILDA CARRILLO STANDARD FORM 515 ID:[id number] SEX:M :1950 AGE: 73 LOC:[id number] PCP: Gelacio Michel /mateo/ TANNA SMITH MD STAFF PATHOLOGIST Signed: 02/23/2024 12:25 TANNA SMITH [facility] Encounter Notes: All associated encounter notes This section contains the clinical notes associated to the Encounter. Date/Time Encounter Note(s) Provider Source Feb 04, 2024 02:59 PM CARDIOLOGY ATTENDING OUTPATIENT NOTE: LOCAL TITLE: CARDIOLOGY CLINIC NOTE STANDARD TITLE: CARDIOLOGY ATTENDING OUTPATIENT NOTE DATE OF NOTE: FEB 04, 2024@14:59 ENTRY DATE: FEB 04, 2024@15:00:01 AUTHOR: BRIGITTE VIRGEN COSIGNER: URGENCY: STATUS: COMPLETED Heart Failure Follow Up History of Present Illness: GILDA CARRILLO is a 73y/o male seen at [facility] heart failure clinic today [...] lower extremity edema but denies any worsening. He has been using as needed furosemide 40 mg about 2 to 3 days each week. He typically takes this extra dose when he notes weight gain, increased shortness of breath, and edema. He is able to correlate this to higher sodium meals. Home weight ranges between 351 to 358 pounds. Home systolic blood pressures 104-120s. Home heart rates 80s to 90s. Review of Systems: All other systems were reviewed and are negative other than in the HPI. Active problems - Computerized Problem List is the source for the followin. Hypertension (SNOMED CT 09057122) 2. Tachycardia - EKG 04/24/[address] or T wave changes 3. Chronic back pain (SNOMED CT 313535488) - s/p laminectomy L2-4 '00 - disability parking permit application completed 03/10/18 with exp date 03/2023 4. Other and unspecified alcohol dependence, unspecified drinking behavior 5. Tobacco use (SNOMED CT 425711208) - quit >25yr use 6. SCREEN - c scope - AAA due 65-75 - DEXA due >70 7. 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 SURGERY Hx - laminectomy L2-4 '00 - tonsilectomy - adenoidectomy - R tympanoplasty ' 9. LUNG LESION - incidental on c-xray 04/21/12 ER @[place] - [place] chest 05/01/12 @[place] - [place] chest 05/25/12 @[place] lung nodules, new effusion, rib frx - [...] 12. Solitary nodule of lung (SNOMED CT 430496309) 13. Chronic obstructive lung disease - PFT done 08/28/15 @[facility] 14. Degenerative joint disease - CT 06/08/2016; bilateral hips mod/severe 15. Benign localized hyperplasia of prostate 16. Arthritis of right hip 17. Lumbar spondylosis 18. Bilateral foot pain 19. Psoriasis 20. Venous stasis edema of bilateral lower limbs 21. Lipodermatosclerosis 22. Diabetes Mellitus Type 2 ([facility] [id number]) 23. Diastolic dysfunction 24. Paroxysmal atrial fibrillation 25. Long-term current use of anticoagulant 26. Persistent atrial fibrillation 27. Exposure to potentially hazardous substance ([facility] [id number]) - Entered through [facility]/VISN23 [employer]AR[employer] Documentation Initiative 28. Drug monitoring done Allergies: Patient has answered NKA Cardiac Medications: [...] 0.5MG/3ML INHL 3ML INHALE 3ML IN ACTIVE (S) NEBULIZER BY INHALATION EVERY 4 HOURS NEEDED FOR SHORTNESS OF BREATH 4) ALBUTEROL 90MCG (CFC-F) 200D ORAL INHL INHALE 2 PUFFS ACTIVE BY INHALATION FOUR TIMES A DAY NEEDED FOR SHORTNESS OF BREATH SHAKE WELL (FOR IMMEDIATE RELIEF). 5) APIXABAN 5MG TAB TAKE ONE TABLET BY MOUTH EVERY 12 ACTIVE (S) HOURS TO TREAT AND/OR PREVENT BLOOD CLOTS 6) BRIEF,TRANQUILITY AUGUSTIN OVERNITE XXL#7648 USE BRIEF ACTIVE DIRECTED NEEDED 7) CARBOXYMETHYLCELLULOSE NA 0.5% OPH SOLN INSTILL 1 ACTIVE DROP IN BOTH EYES FOUR TIMES A DAY FOR DRY EYES 8) CLEANSING CLOTH ATTENDS PKT USE 1 WASHCLOTH TOPICALLY ACTIVE DIRECTED 9) DICLOFENAC NA 1% TOP GEL APPLY 2 GRAMS TOPICALLY TWO ACTIVE TIMES A DAY NEEDED FOR PAIN -USE DOSE CARD IN BOX TO MEASURE DOSE -MAXIMUM OF 32 GM PER DAY 10) DOFETILIDE 250MCG CAP TAKE ONE CAPSULE BY MOUTH TWICE ACTIVE (S) A DAY FOR ATRIAL FIBRILLATION 11) DOXYCYCLINE HYCLATE 100MG TAB TAKE ONE TABLET BY ACTIVE MOUTH TWICE A DAY Bronchitis 12) DRESSING,MEPILEX BORDER HEEL 8.7INX9.1IN APPLY 1 ACTIVE DRESSING TOPICALLY THREE TIMES WEEKLY 13) EMPAGLIFLOZIN 25MG TAB TAKE ONE-HALF TABLET BY MOUTH ACTIVE (S) EVERY MORNING FOR HEART FAILURE 14) FLUTICASONE PROP 50MCG 120D NASAL INHL SPRAY 2 SPRAYS ACTIVE IN EACH NOSTRIL EVERY DAY FOR NASAL DRIP 15) GABAPENTIN 400MG CAP TAKE ONE CAPSULE BY MOUTH FOUR ACTIVE TIMES A DAY FOR PAIN AND NUMBNESS 16) GUAIFENESIN 200MG TAB TAKE TWO TABLETS BY MOUTH THREE ACTIVE TIMES A DAY FOR COPD/COUGH/MUCUS 17) KERLIX 4.5IN STERILE USE 1 BANDAGE TOPICALLY ACTIVE DIRECTED 18) LIDOCAINE 5% PATCH APPLY 3 PATCHES TOPICALLY EVERY ACTIVE DAY FOR PAIN. WEAR FOR ONLY 12 HOURS THEN REMOVE FOR 12 HOURS. ONE PATCH FOR EACH HIP AND ONE PATCH FOR LOW BACK 19) LOSARTAN 50MG TAB TAKE ONE TABLET BY MOUTH EVERY ACTIVE MORNING FOR HEART FAILURE 20) LUBRICATING (PF) OPH OINT APPLY A SMALL AMOUNT TO ACTIVE BOTH EYES AT BEDTIME FOR DRY EYES 21) NYSTATIN 900861 UNT/GM CREAM APPLY THIN LAYER ACTIVE TOPICALLY TWICE A DAY FUNGAL INFECTION EXTERNAL USE ONLY APPLY TO PANNUS 22) POLYETHYLENE GLYCOL 3350 ORAL PWDR TAKE 17 GRAMS BY ACTIVE MOUTH EVERY DAY NEEDED FOR CONSTIPATION 23) POTASSIUM CL 20MEQ SA TAB (DISPERSIBLE) TAKE TWO ACTIVE TABLETS BY MOUTH TWICE A DAY FOR POTASSIUM SUPPLEMENT 24) PREDNISONE 20MG TAB TAKE TWO TABLETS BY MOUTH EVERY ACTIVE MORNING FOR SEVERE WORSENING OF SHORTNESS OF BREATH 25) SEMAGLUTIDE 2MG/0.75ML INJ PEN 3ML INJECT 2MG UNDER ACTIVE THE SKIN EVERY WEEK FOR DIABETES 26) SKIN PREP WIPE USE 1 WIPE TOPICALLY THREE TIMES A ACTIVE WEEK REPLACES SKIN BARRIER FILM DUE TO BACKORDER 27) SPIRONOLACTONE 25MG TAB TAKE ONE TABLET BY MOUTH ACTIVE (S) EVERY DAY FOR HEART FAILURE 28) TAZAROTENE 0.1% TOP CREAM APPLY THIN [...] OR VASHE SOAKS. WRAP WITH KERLIX. 31) UNDERPAD,BED 23IN X 36IN PLASTIC BACK USE CHUX ACTIVE DIRECTED 32) UREA 40% CREAM APPLY THIN LAYER TOPICALLY EVERY DAY ACTIVE DIRECTED FOR THICK SKIN 33) VANICREAM TOP CREAM APPLY THIN LAYER TOPICALLY EVERY ACTIVE DAY IDEALLY WITHIN 3 MINUTES AFTER BATH OR SHOWER. TO ALL AREAS OF SKIN FOR MOISTURIZER FOR DRY SKIN 34) ZINC OXIDE 20% OINT APPLY SMALL AMOUNT TOPICALLY ACTIVE THREE TIMES A WEEK NEEDED FOR WOUND PREVENTION Pending Outpatient Medications Status 1) FUROSEMIDE 40MG TAB TAKE TWO TABLETS BY MOUTH EVERY PENDING MORNING AND TAKE ONE TABLET EVERY EVENING 35 Total Medications MEDICATION RECONCILIATION: The medication list above was reviewed with the patient/surrogate and if changes are indicated they are listed above. Vitals: Temperature: 97.5 F [36.4 C] (02/04/2024 14:27) Pulse: 95 (02/04/2024 14:27) Respirations: 16 (02/04/2024 14:27) Blood Pressure: 112/71 (02/04/2024 14:27) Pain: 0 (02/04/2024 14:27) RR: unlabored at rest O2 Sat:91% (02/04/2024 14:27) Weight: 349.9 lb [158.71 kg] (02/04/2024 14:27) Body Mass Index: 42.7 Measurement DT WEIGHT LB(KG)[BMI] 02/04/2024 14:27 349.9(158.71)[43*] 11/05/2023 13:28 360(163.29)[44*] 10/07/2023 13:03 360(163.29)[44*] PHYSICAL EXAM: General: Alert, cooperative, alert and oriented x3, in no acute distress HEENT: Atraumatic and normocephalic NECK: Neck veins flat LUNGS: Lung sounds clear, wheezing, normal expansion, respirations unlabored HEART: Regular, S1, S2, no murmur, rub or gallop ABDOMEN: Soft, nontender, nondistended, bowel sounds present EXTREMITIES: warm, no edema, pulses present bilaterally PSYCHOLOGICAL: Normal affect LABS: ---- SODIUM 140 (02/04/24) POTASSIUM 4.1 (02/04/24) CHLORIDE 102 (02/04/24) CO2 27 (02/04/24) GLUCOSE 102 H (02/04/24) UREA NITROGEN 18 (02/04/24) CREATININE 1.2 (02/04/24) ANION GAP: EGFR (02/21) 08/02/2021@1412 83 CREATININE EGFR (CKD-EPI) 02/04/2024@1340 63 MAGNESIUM 2.3 (02/04/24) CALCIUM 10.0 (02/04/24) PO4____ CREATININE 1.2 PLASMA (02/04/24 13:40) 1.0 PLASMA (01/06/24 11:57) 1.2 PLASMA (10/07/23 11:36) SLT - Lab Tests Selected Collection DT Specimen Test Name Result Units Ref Range 01/06/2024 15:14 PLASMA BNP 18 pg/mL Ref: <=99 08/13/2023 10:49 PLASMA BNP 29 pg/mL Ref: <=99 07/10/2023 05:30 PLASMA BNP 25 pg/mL Ref: <=99 TSH ____ IRON____ TRANSFERRIN____ TIBC,CALCULATED____ IRON SATURATION____ FERRITIN____ Liver Panel: ALBUMIN 3.6 (07/08/23) ALK PHOSPHATASE____ SGPT____ SGOT____ BILIRUBIN, TOTAL____ No data available for: GAMMA GTP LIPASE____ AMYLASE,TOTAL____ Collection DT Spec WBC HGB HCT PLT MCV NEUT LYMPHS 01/06/2024 15:14 BLOOD 11.27 H 15.3 45.8 290 95.2 68.6 15.1 07/07/2023 06:56 BLOOD 9.78 16.4 48.1 244 94.7 Today's Labs: GLUCOSE: 102 H UREA NITROGEN: 18 CREATININE: 1.2 SODIUM: 140 POTASSIUM: 4.1 CHLORIDE: 102 CO2: 27 CALCIUM: 10.0 MAGNESIUM: 2.3 ANION GAP: 11 CREATININE EGFR (CKD-EPI): 63 GLUCOSE: 102 H UREA NITROGEN: 18 CREATININE: 1.2 SODIUM: 140 POTASSIUM: 4.1 CHLORIDE: 102 CO2: 27 CALCIUM: 10.0 MAGNESIUM: 2.3 ANION GAP: 11 CREATININE EGFR (CKD-EPI): 63 Assessment/Plan: # Heart failure, chronic: Heart failure with preserved ejection fraction. He has been using as needed furosemide 40 mg about 2 to 3 days each week. He typically takes this extra dose when he notes weight gain, increased shortness of breath, and edema. He is able to correlate this to higher sodium meals. Plan to increase daily dose of furosemide. - EF: 55 to 60% - Etiology: Hypertension, obesity, atrial fibrillation with rapid ventricular response - Stage: C - NYHA class: III -- ACEi/ARB/ARNI: Losartan 50 mg daily -- BB: not prescribed -- MRA: spironolactone 25 mg daily -- SGLT-2: Empagliflozin 12.5 mg daily -- Diuretic: Furosemide increased to 40 mg in the morning and 80 mg in the evening (he prefers to take higher dose in the evening) -- Potassium - Medications Optimized: yes, HFpEF [...] hospitalization: October 2022 - Cardiac rehab: no #Persistent atrial fibrillation: He had an unsuccessful cardioversion on January 22, 2023. He was hospitalized for dofetilide initiation on 07/07/2023. Heart rate regular today. He continues to take apixaban. #Hypertension: Home systolic blood pressures range between 104-120s. Summary of Plan: -Increase furosemide to 40 mg in the morning and 80 mg in the evening (he prefers to take higher dose in the evening) -BMP in 1 week -Consult dietitian to discuss low sodium meal delivery options Follow Up: --------- - Follow up in [...] me with any questions or concerns: Brigitte Virgen NP [facility], Department of Cardiology HF test bore helper [phone], Option 3 /es/ BRIGITTE VIRGEN CNP Signed: 02/04/2024 15:[address] [facility] Feb 04, 2024 02:30 PM INTERNAL MEDICINE OUTPATIENT NOTE: LOCAL TITLE: MEDICINE CLINIC NURSING NOTE STANDARD TITLE: INTERNAL MEDICINE OUTPATIENT NOTE DATE OF NOTE: FEB 04, 2024@14:30 ENTRY DATE: FEB 04, 2024@14:30:54 AUTHOR: MIGNON GONZÁLES EXP COSIGNER: URGENCY: STATUS: COMPLETED TYPE OF VISIT: Appointment Check In Type of appointment: In-person appointment REASON FOR VISIT: scheduled visit ALLERGIES: Patient has answered NKA VITAL SIGNS: Blood Pressure: 112/71 (02/04/2024 14:27) Pulse: 95 (02/04/2024 14:27) Respiration: 16 (02/04/2024 14:27) Temperature: 97.5 F [36.4 C] (02/04/2024 14:27) Weight: 349.9 lb [158.71 kg] (02/04/2024 14:27) Height: 76 in [193.0 cm] (07/02/2023 13:54) BMI: 42.7 O2 Sat: 91% (02/04/2024 14:27) Pain: 0 (02/04/2024 14:27) PAIN SCREEN: Patient is not having significant pain that they wish to discuss with their provider today. MEDICATION Over the Counter/Herbal Medications: The patient denies taking any outside medications or herbals. /mateo/ MIGNON GONZÁLES [facility] Signed: 02/04/2024 14:[address] [facility]
--- OUTSIDE RECORDS SUMMARY | 2024-03-25 10:33 | XMS_ITS | Encounter Summary ---
Author Name [facility] [place] Organization [place] Address [address] [place] [id number] Care Team Providers Care Head Tennis Coach Name Role Phone GELACIO MICHEL Primary Care [...] PART A Jul 21, 2014 PART A [id number] [phone] Miguelito CARRILLO PATIENT Selected Encounter This section includes the information on record at [place] for the Encounter. Date/Time Encounter Type Encounter Description Reason Provider Source Feb 12, 2024 01:30 PM CONFORMITY EVALUATION AUDIOLOGY ICD-10-CM H90.3 Sensorineural hearing loss, bilateral BILLY PERKINS E Encounter Template Text not used by [place] Assessments - Encounter Diagnoses This section includes the primary and secondary diagnoses documented for the Encounter. Date/Time Primary/Secondary Diagnosis Diagnosis Name Provider Source Feb 12, 2024 02:16 PM PRIMARY Sensorineural hearing loss, bilateral BILLY PERKINS [facility] Feb 12, 2024 02:16 PM SECONDARY Encounter for fitting and adjustment of hearing aid BILLY PERKINS [facility] Feb 12, 2024 02:16 PM SECONDARY Tinnitus, bilateral BILLY PERKINS [facility] Plan of Treatment: Future Appointments (+ 6 months) and Future Tests (+/- 45 days) The Plan of Treatment section includes future care activities for the patient from all [place] [facility]. This section includes future appointments and future orders which are active, pending or scheduled. Future Appointments This section includes appointments that were scheduled to occur 6 months from the date of the Encounter, up to a maximum of 20 appointments. The data comes from all [facility]. Appointment Date/Time Appointment Type Appointme nt Facility Name Feb 19, 2024 02:15 PM AMBULATORY - MEDICINE [facility] Feb 26, 2024 10:00 AM AMBULATORY - NONE [facility] Mar 29, 2024 01:00 PM AMBULATORY - SURGERY [facility] Mar 29, 2024 02:00 PM AMBULATORY - SURGERY [facility] Mar 30, 2024 08:30 AM AMBULATORY - REHAB MEDICIN E [facility] Apr 01, 2024 10:00 AM AMBULATORY - NONE [facility] Apr 12, 2024 10:15 AM AMBULATORY - SURGERY [facility] Apr 13, 2024 01:15 PM AMBULATORY - MEDICINE [facility] Apr 13, 2024 01:30 PM AMBULATORY - MEDICINE [facility] Apr 13, 2024 02:00 PM AMBULATORY - MEDICINE [facility] Apr 15, 2024 01:45 PM AMBULATORY - SURGERY [facility] May 06, 2024 04:00 PM AMBULATORY - MEDICINE [facility] May 12, 2024 02:00 PM AMBULATORY - MEDICINE [facility] May 12, 2024 03:00 PM AMBULATORY - MEDICINE [facility] Active, Pending, and Scheduled Orders This section includes a listing of several types of active, pending, and scheduled orders, including clinic medications orders, diagnostic test orders, procedure orders and consult orders; where the start date of the order is 45 days before the date of the Encounter or 45 days after the date of theEncounter. The data comes from all [facility]. Test Date/Time Test Type Test Details Facility Name Jan 06, 2024 12:00 AM Laboratory - Chemi stry Order BNP PLASMA SP ONCE [facility] Feb 27, 2024 12:50 PM Consult Order OT OCCUPAT IONAL THERAPY OUTPT EQUIPMENT Cons Clinical Nursing Director's Choice PASHA NICHOLS Lab Results: +/- 30 days of the encounter This section includes the Chemistry and Hematology Lab Results on record with [place] for the patient. Radiology Reports and Pathology Reports are provided separately, in subsequent sections. Lab Results This section contains the Chemistry/Hematology Results that were resulted 30 days before or 30 daysafter the date of the Encounter. Date/Time Source Result Type Result - Unit Interpretation Reference Range Comment Feb 12, 2024 12:12 PM [facility] BASIC METABOLIC PANEL+MG Specimen Type: PLASMA No comment entered. Ordering Provider: FLAQUITO VIRGEN Report Released Date/Time: Feb 04, 2024 02:58 PM Reporting Lab: [facility] [id number] Performing Lab: [facility] [id number] CREATININE 1.4 mg/dL H 0.7-1.2 UREA NITROGEN 21 mg/dL 8-26 GLUCOSE 135 mg/dL H 70-100 SODIUM 136 mmol/L 136-145 POTASSIUM 4.0 mmol/L 3.5-5.1 CHLORIDE 100 mmol/L 98-107 CO2 25 mmol/L 22-29 CALCIUM 9.3 mg/dL 8.4-10.2 MAGNESIUM 2.2 mg/dL 1.6-2.6 ANION GAP 11 mmol/L 5-15 .CREAT EGFR(CKD-EPI ) 53 L >60 Feb 04, 2024 01:40 PM [facility] BNP Specimen Type: PLASMA No comment entered. Ordering Provider: FLAQUITO VIRGEN Report Released Date/Time: Aug 13, 2023 11:38 AM Reporting Lab: [facility] [id number] Performing Lab: [facility] [id number] BNP 23 pg/mL <99 Feb 04, 2024 01:40 PM [facility] BASIC METABOLIC PANEL+MG Specimen Type: PLASMA No comment entered. Ordering Provider: FLAQUITO VIRGEN Report Released Date/Time: Aug 13, 2023 11:38 AM Reporting Lab: [facility] [id number] Performing Lab: [facility] [id number] CREATININE 1.2 mg/dL 0.7-1.2 UREA NITROGEN 18 [...] and tobacco- related health factors from the [place] facility where the Encounter took place. Current Smoking Status This section includes the most current smoking, or tobacco-related health factor, from the [place] facility where the Encounter took place. Date/Time Current Smoking Status Comment Tasha ity Dec 19, 2020 12:07 PM [place]-TOBACCO QUIT 5 TO < 15 YRS [facility] Tobacco Use History This section includes a history of the smoking, or tobacco-related health factors, that were collected on or before the date of the Encounter. The data comes from the [place] facility where the Encounter took place. Date/Time Smoking Status/Tobacco Use Comment F acility Dec 19, 2020 12:07 PM [place]-TOBACCO QUIT 5 TO < 15 YRS [facility] Aug 02, 2015 09:49 AM CURRENT TOBACCO USER [facility] Jun 06, 2014 08:51 AM CURRENT TOBACCO USER [facility] May 04, 2013 09:29 AM CURRENT TOBACCO USER [facility] Apr 24, 2012 07:40 AM CURRENT TOBACCO USER [facility] Advance Directives: All historical and current Section Date Range: From patient's date of to the date document was created. This section includes ALL of a patient's completed or amended [place] Advance and Rescinded Directives. The entries below indicate that a directive exists for the patient, but an actual copy is not included with this document. The data comes from all [facility]. Date Advance Directives Provider Source Jan 02, 2023 STATE-AUTHORIZED PORTABLE ORDERS [facility] Pathology Reports: +/- 30 days of [...] the Encounter. The data comes from all [place] treatment facilities. Date/Time Pathology Report Provider Source Feb 23, 2024 12:25 PM LR SURGICAL PATHOL OGY REPORT: LOCAL TITLE: LR SURGICAL PATHOLOGY REPORT STANDARD TITLE: PATHOLOGY REPORT DATE OF NOTE: FEB 23, 2024@12:25:01 ENTRY DATE: FEB 23, 2024@12:25:01 AUTHOR: TANNA SMITH EXP COSIGNER: URGENCY: STATUS: COMPLETED $APHDR Reporting Lab: [facility] [CLIA# [id number]] [place] [address] - - - - - - - [...] Performing Laboratory: Surgical Pathology Report Performed By: [facility] [CLIA# [id number]] [place] [address] $FTR - - - - - - [...] - - GILDA CARRILLO STANDARD FORM 515 ID:[id number] SEX:M :1950 AGE: 73 LOC:[id number] PCP: Gelacio Michel /mateo/ TANNA SMITH MD STAFF PATHOLOGIST Signed: 02/23/2024 12:25 TANNA SMITH [facility] Encounter Notes: All associated encounter notes This section contains the clinical notes associated to the Encounter. Date/Time Encounter Note(s) Provider Source Feb 12, 2024 07:52 AM AUDIOLOGY NOTE: LOCAL TITLE: AUDIOLOGY CLINIC NOTE STANDARD TITLE: AUDIOLOGY NOTE DATE OF NOTE: FEB 12, 2024@07:52 ENTRY DATE: FEB 12, 2024@07:52:28 AUTHOR: YARON PERKINS COSIGNER: URGENCY: STATUS: COMPLETED DIAGNOSIS: Encounter for Fitting and Adjustment of Hearing Aid Sensorineural loss - bilateral Tinnitus - bilateral REASON FOR VISIT: was seen for Hearing Aid [place] Appointment. Therapeutic - hearing aid fitting, conformity evaluation (real-ear measures), orientation and counseling using a standard curriculum (30 minutes). LOCATION OF VISIT (ROOM NUMBER): 112 [place] was unaccompanied. HISTORY: [place] denies changes in hearing or new otologic symptoms since their last visit to the clinic. has never used hearing aids previously. HEARING AIDS (Right/Left) fit (date): 02/12/2024 Make: Signia Model: Pure C&G 7IX Style: ALONA Serial #: [id number] Sap Sd Analyst: Coupsta Dome: Small Vented Sleeve ACCESSORIES: none OTOSCOPY: Both Ears: Free of excessive cerumen. Normal anatomy bilaterally. ACTION + CONFORMITY EVAUATION (VERIFICATION OF HEARING AID FUNCTION): Hearing aids are a good physical fit to pt's ears. Hearing aids were programmed to NAL-NL2 prescriptive targets with the AudioScan Verifit, which were derived from the Veterans hearing loss. According to the NAL-NL2 fitting method, increased gain so the patient's hearing aids are meeting target for soft, average, and loud speech. Loudness tolerance was measured using a 90 dB MPO tone sweep and the patient was able to tolerate the output of the hearing devices. As feedback was noted after the probe tubes were removed, feedback calibration was ran and activated. There then was no feedback from either aid, even with head/jaw movement or with objects near the ears. Veterans subjective impressions were considered while adjusting the hearing aids. reported good sound quality and equal balance between ears after adjustments were made. [place] reported a comfortable fit. demonstrated understanding of the new aids and was able to insert the hearing aids appropriately, as well as manipulate the battery charging unit. Volume control disabled Program button disabled Programs are as follows: 1. Automatic 2. Noisy Environment 3. Reverberant Room 4. Outdoor Sports [place]'s Android cell phone was paired to the hearing aids. A practice phone call was completed to verify functionality. Education and counseling was completed regarding streaming capabilities. The radial drill press operator for plastic phone application was reviewed in detail (volume control, program changes, settings, etc.) and demonstrated in the office. Provided pt with the radial drill press operator for plastic technical support phone number. [place] was counseled using a standard curriculum (30 minutes) regarding: - Full-time hearing aid use and acclimating to amplification - Realistic expectations for hearing aid use - Appropriate communication strategies - Warning about lithium ion toxicity - How to charge the hearing aids - Location and operation of all controls - Proper care and maintenance - Protecting hearing in high noise levels - [facility]AL[facility] and Call Center contact information and services, including the trial period. Prognosis for success is good, given the Veterans response to the hearing aids. Hearing aids were issued and supplies were mailed. PLAN: 1) will return to clinic in 1 month for follow-up of their amplification needs. They will cancel if not needed. IS IN AGREEMENT WITH THIS PLAN /mateo/ Jack SANDERS, MINDY-A ENTERTAINMENT DANCER Signed: 02/12/2024 14:16 YARON PERKINS [facility]
--- OUTSIDE RECORDS SUMMARY | 2024-03-25 10:33 | XMS_ITS | Encounter Summary ---
Author Name [facility] [place] Organization [facility] [place] Address [address] [place] [address] Care Team Providers Care Mobile Device Engineer Name Role Phone GELACIO MICHEL Primary [...] PART A Jul 21, 2014 PART A [id number] [phone] Miguelito CARRILLO PATIENT Selected Encounter This section includes the information on record at [place] for the Encounter. Date/Time Encounter Type Encounter Description Reason Provider Source Feb 13, 2024 01:21 PM Outpatient Encounter TELEPHONE/MEDICIN E ICD-10-CM I50.32 Chronic diastolic (congestive) heart failure [place] VIRGEN Homero Encounter Template Text not used by [place] Assessments - Encounter Diagnoses This section includes the primary and secondary diagnoses documented for the Encounter. Date/Time Primary/Secondary Diagnosis Diagnosis Name Provider Source Feb 13, 2024 01:21 PM PRIMARY Chronic diastolic (congestive) heart failure [facility] VIR[facility] Plan of Treatment: Future Appointments (+ 6 months) and Future Tests (+/- 45 days) The Plan of Treatment section includes future care activities for the patient from all [place] [facility]. This section includes future appointments and future orders which are active, pending or scheduled. Future Appointments This section includes appointments that were scheduled to occur 6 months from the date of the Encounter, up to a maximum of 20 appointments. The data comes from all [facility]. Appointment Date/Time Appointment Type Appointme nt Facility Name Feb 19, 2024 02:15 PM AMBULATORY - MEDICINE [facility] Feb 26, 2024 10:00 AM AMBULATORY - NONE [facility] Mar 29, 2024 01:00 PM AMBULATORY - SURGERY [facility] Mar 29, 2024 02:00 PM AMBULATORY - SURGERY [facility] Mar 30, 2024 08:30 AM AMBULATORY - REHAB MEDICIN [facility] Apr 01, 2024 10:00 AM AMBULATORY - NONE [facility] Apr 12, 2024 10:15 AM AMBULATORY - SURGERY [facility] Apr 13, 2024 01:15 PM AMBULATORY - MEDICINE [facility] Apr 13, 2024 01:30 PM AMBULATORY - MEDICINE [facility] Apr 13, 2024 02:00 PM AMBULATORY - MEDICINE [facility] Apr 15, 2024 01:45 PM AMBULATORY - SURGERY [facility] May 06, 2024 04:00 PM AMBULATORY - MEDICINE [facility] May 12, 2024 02:00 PM AMBULATORY - MEDICINE [facility] May 12, 2024 03:00 PM AMBULATORY MEDICINE [facility] Active, Pending, and Scheduled Orders This section includes a listing of several types of active, pending, and scheduled orders, including clinic medications orders, diagnostic test orders, procedure orders and consult orders; where the start date of the order is 45 days before the date of the Encounter or 45 days after the date of theEncounter. The data comes from all [facility]. Test Date/Time Test Type Test Details Facility Name Jan 06, 2024 12:00 AM Laboratory - Chemi stry Order BNP PLASMA SP ONCE [facility] Feb 27, 2024 12:50 PM Consult Order OT OCCUPAT IONAL THERAPY OUTPT EQUIPMENT Cons Fire Extinguisher Repairer Inspector's Choice PASHA NICHOLS Lab Results: +/- 30 days of the encounter This section includes the Chemistry and Hematology Lab Results on record with [place] for the patient. Radiology Reports and Pathology Reports are provided separately, in subsequent sections. Lab Results This section contains the Chemistry/Hematology Results that were resulted 30 days before or 30 daysafter the date of the Encounter. Date/Time Source Result Type Result - Unit Interpretation Reference Range Comment Feb 12, 2024 12:12 PM [facility] BASIC METABOLIC PANEL+MG Specimen Type: PLASMA No comment entered. Ordering Provider: FLAQUITO VIRGEN Report Released Date/Time: Feb 04, 2024 02:58 PM Reporting Lab: [facility] [id number] Performing Lab: [facility] [id number] CREATININE 1.4 mg/dL H 0.7-1.2 UREA NITROGEN 21 mg/dL 8-26 GLUCOSE 135 mg/dL H 70-100 SODIUM 136 mmol/L 136-145 POTASSIUM 4.0 mmol/L 3.5-5.1 CHLORIDE 100 mmol/L 98-107 CO2 25 mmol/L 22-29 CALCIUM 9.3 mg/dL 8.4-10.2 MAGNESIUM 2.2 mg/dL 1.6-2.6 ANION GAP 11 mmol/L 5-15 .CREAT EGFR(CKD-EPI ) 53 L >60 Feb 04, 2024 01:40 PM [facility] BNP Specimen Type: PLASMA No comment entered. Ordering Provider: FLAQUITO VIRGEN Report Released Date/Time: Aug 13, 2023 11:38 AM Reporting Lab: [facility] [id number] Performing Lab: [facility] [id number] BNP 23 pg/mL <99 Feb 04, 2024 01:40 PM [facility] BASIC METABOLIC PANEL+MG Specimen Type: PLASMA No comment entered. Ordering Provider: FLAQUITO VIRGEN Report Released Date/Time: Aug 13, 2023 11:38 AM Reporting Lab: [facility] [id number] Performing Lab: [facility] [id number] CREATININE 1.2 mg/dL 0.7-1.2 UREA NITROGEN 18 [...] and tobacco- related health factors from the [place] facility where the Encounter took place. Current Smoking Status This section includes the most current smoking, or tobacco-related health factor, from the [place] facility where the Encounter took place. Date/Time Current Smoking Status Comment Facil ity Dec 19, 2020 12:07 PM [place]-TOBAC[place] FORMER USER [facility] Tobacco Use History This section includes a history of the smoking, or tobacco-related health factors, that were collected on or before the date of the Encounter. The data comes from the [place] facility where the Encounter took place. Date/Time Smoking Status/Tobacco Use Comment F acility Dec 19, 2020 12:07 PM [place]-TOBACCO QUIT 5 TO < 15 YRS [facility] Aug 02, 2015 09:49 AM CURRENT TOBACCO USER [facility] Jun 06, 2014 08:51 AM CURRENT TOBACCO USER [facility] May 04, 2013 09:29 AM CURRENT TOBACCO USER [facility] Apr 24, 2012 07:40 AM CURRENT TOBACCO USER [facility] Advance Directives: All historical and current Section Date Range: From patient's date of to the date document was created. This section includes ALL of a patient's completed or amended [place] Advance and Rescinded Directives. The entries below indicate that a directive exists for the patient, but an actual copy is not included with this document. The data comes from all [facility]. Date Advance Directives Provider Source Jan 02, 2023 STATE-AUTHORIZED PORTABLE ORDERS [facility] Pathology Reports: +/- 30 days of [...] the Encounter. The data comes from all [place] treatment facilities. Date/Time Pathology Report Provider Source Feb 23, 2024 12:25 PM LR SURGICAL PATHOL OGY REPORT: LOCAL TITLE: LR SURGICAL PATHOLOGY REPORT STANDARD TITLE: PATHOLOGY REPORT DATE OF NOTE: FEB 23, 2024@12:25:01 ENTRY DATE: FEB 23, 2024@12:25:01 AUTHOR: TANNA SMITH EXP COSIGNER: URGENCY: STATUS: COMPLETED $APHDR Reporting Lab: [facility] [CLIA# [id number]] [place] [address] - - - - - - - [...] 0.5 x 0.3 cm in aggregate. [facility] MI[facility]OSCOPIC DES[facility]: Microscopic examination performed. DIAGNOSIS: 1. [...] Performing Laboratory: Surgical Pathology Report Performed By: [facility] [CLIA# [id number]] [place] [address] $FTR - - - - - - - - - - - - - - - - - - - - - - - - - - - - - - - - - - - - - - - - (End of report) TANNA SMITH MD b Date Feb 23, 2024 - - - - - - - - - - - - - - - - - - - - - - - - - - - - - - - - - - - - - - - - GILDA CARRILLO STANDARD FORM 515 ID:[id number] SEX:M :1950 AGE: 73 LOC:[id number] PCP: Gelacio Michel /mateo/ TANNA SMITH MD STAFF PATHOLOGIST Signed: 02/23/2024 12:25 TANNA SMITH [facility] Encounter Notes: All associated encounter notes This section contains the clinical notes associated to the Encounter. Date/Time Encounter Note(s) Provider Source Feb 13, 2024 01:21 PM CARDIOLOGY ATTENDI OUTPATIENT NOTE: LOCAL TITLE: CARDIOLOGY CLINIC NOTE STANDARD TITLE: CARDIOLOGY ATTENDING OUTPATIENT NOTE DATE OF NOTE: FEB 13, 2024@13:21 ENTRY DATE: FEB 13, 2024@13:21:46 AUTHOR: JACOB VIRGEN EXP COSIGNER: URGENCY: STATUS: COMPLETED Brief Cardiology Phone Visit I called Gilda for an update after increasing furosemide on February 03. Furosemide was increased to 40 mg in the morning and 80 mg in the evening ( prefers to take higher dose in the evening) due to frequent use of as needed furosemide. He states that he feels better on this increased dose of furosemide. He has chronic shortness of breath which is at baseline. Edema is minimal. His weight is more stable now at 347 to 350 pounds. Systolic blood pressure 120s to 130s. Creatinine slightly elevated today at 1.4. He was encouraged to drink 60 ounces of fluid daily. Plan to recheck BMP March 29 when he is here for another appointment. If renal function remains elevated, may need to consider decreasing furosemide. All questions were answered to his satisfaction. Time on phone 5 minutes. /mateo/ JACOB VIRGEN CNP Signed: 02/13/2024 13:25 JACOB VIRGEN [facility]
--- OUTSIDE RECORDS SUMMARY | 2024-03-25 10:33 | XMS_ITS | Encounter Summary ---
Author Name [facility] [place] Address [address] [place] [address] Care Team Providers Care Ethical Hacker Name Role Phone GELACIO MICHEL Primary Care [...] PART A Jul 21, 2014 PART A [id number] [phone] Miguelito CARRILLO PATIENT Selected Encounter This section includes the information on record at [place] for the Encounter. Date/Time Encounter Type Encounter Description Reason Pro vider Source IHE Encounter Template Text not used by [place] Advance Directives: All historical and current Section Date Range: From patient's date of to the date document was created. This section includes ALL of a patient's completed or amended [place] Advance and Rescinded Directives. The entries below indicate that a directive exists for the patient, but an actual copy is not included with this document. The data comes from all [place] facilities. Date Advance Directives Provider Source Jan 02, 2023 STATE-AUTHORIZED PORTABLE ORDERS [facility]
--- OUTSIDE RECORDS SUMMARY | 2024-03-25 10:34 | XMS_ITS | Encounter Summary ---
Author Name [facility] [place] [facility] [place] Address [address] [place] [address] Care Team Providers Care Grease Buffer Name Role Phone GELACIO MICHEL Primary Care [...] PART A Jul 21, 2014 PART A [id number] [phone] Miguelito CARRILLO PATIENT Selected Encounter This section includes the information on record at [place] for the Encounter. Date/Time Encounter Type Encounter Description Reason Pro vider Source Feb 19, 2024 03:26 PM Outpatient Encounter EVENT (HISTORICAL) IHE Encounter Template Text not used by [place] Plan of Treatment: Future Appointments (+ 6 months) and Future Tests (+/- 45 days) The Plan of Treatment section includes future care activities for the patient from all [place] treatmentfacilities. This section includes future appointments and future orders which are active, pending or scheduled. Future Appointments This section includes appointments that were scheduled to occur 6 months from the date of the Encounter, up to a maximum of 20 appointments. The data comes from all [place] treatment facilities. Appointment Date/Time Appointment Type Appointme nt Facility Name Feb 26, 2024 10:00 AM AMBULATORY - NONE [facility] Mar 29, 2024 01:00 PM AMBULATORY - SURGERY [facility] Mar 29, 2024 02:00 PM AMBULATORY - SURGERY [facility] Mar 30, 2024 08:30 AM AMBULATORY - REHAB MEDICIN E [facility] Apr 01, 2024 10:00 AM AMBULATORY - NONE [facility] Apr 12, 2024 10:15 AM AMBULATORY - SURGERY [facility] Apr 13, 2024 01:15 PM AMBULATORY - MEDICINE [facility] Apr 13, 2024 01:30 PM AMBULATORY - MEDICINE [facility] Apr 13, 2024 02:00 PM AMBULATORY - MEDICINE [facility] Apr 15, 2024 01:45 PM AMBULATORY - SURGERY [facility] May 06, 2024 04:00 PM AMBULATORY - MEDICINE [facility] May 12, 2024 02:00 PM AMBULATORY - MEDICINE [facility] May 12, 2024 03:00 PM AMBULATORY - MEDICINE [facility] Active, Pending, and Scheduled Orders This section includes a listing of several types of active, pending, and scheduled orders, including clinic medications orders, diagnostic test orders, procedure orders and consult orders; where the start date of the order is 45 days before the date of the Encounter or 45 days after the date of theEncounter. The data comes from all [facility]. Test Date/Time Test Type Test Details Facility Name Jan 06, 2024 12:00 AM Laboratory - Chemi stry Order BNP PLASMA SP ONCE [facility] Feb 27, 2024 12:50 PM Consult Order OT OCCUPAT IONAL THERAPY OUTPT EQUIPMENT Cons Director Design's Choice [facility] Lab Results: +/- 30 days of the encounter This section includes the Chemistry and Hematology Lab Results on record with [place] for the patient. Radiology Reports and Pathology Reports are provided separately, in subsequent sections. Lab Results This section contains the Chemistry/Hematology Results that were resulted 30 days before or 30 daysafter the date of the Encounter. Date/Time Source Result Type Result - Unit Interpretation Reference Range Comment Feb 12, 2024 12:12 PM [facility] BASIC METABOLIC PANEL+MG Specimen Type: PLASMA No comment entered. Ordering Provider: FLAQUITO VIRGEN Report Released Date/Time: Feb 04, 2024 02:58 PM Reporting Lab: [facility] [id number] Performing Lab: [facility] [id number] CREATININE 1.4 mg/dL H 0.7-1.2 UREA NITROGEN 21 mg/dL 8-26 GLUCOSE 135 mg/dL H 70-100 SODIUM 136 mmol/L 136-145 POTASSIUM 4.0 mmol/L 3.5-5.1 CHLORIDE 100 mmol/L 98-107 CO2 25 mmol/L 22-29 CALCIUM 9.3 mg/dL 8.4-10.2 MAGNESIUM 2.2 mg/dL 1.6-2.6 ANION GAP 11 mmol/L 5-15 .CREAT EGFR(CKD-EPI ) 53 L >60 Feb 04, 2024 01:40 PM [facility] BNP Specimen Type: PLASMA No comment entered. Ordering Provider: FLAQUITO VIRGEN Report Released Date/Time: Aug 13, 2023 11:38 AM Reporting Lab: [facility] [id number] Performing Lab: [facility] [id number] BNP 23 pg/mL <99 Feb 04, 2024 01:40 PM [facility] BASIC METABOLIC PANEL+MG Specimen Type: PLASMA No comment entered. Ordering Provider: FLAQUITO VIRGEN Report Released Date/Time: Aug 13, 2023 11:38 AM Reporting Lab: [facility] [id number] Performing Lab: [facility] [id number] CREATININE 1.2 mg/dL 0.7-1.2 UREA NITROGEN 18 [...] and tobacco- related health factors from the [place] facility where the Encounter took place. Current Smoking Status This section includes the most current smoking, or tobacco-related health factor, from the [place] facility where the Encounter took place. Date/Time Current Smoking Status Comment Tasha ity Dec 19, 2020 12:07 PM [place]-TOBACCO QUIT 5 TO < 15 YRS [facility] Tobacco Use History This section includes a history of the smoking, or tobacco-related health factors, that were collected on or before the date of the Encounter. The data comes from the [place] facility where the Encounter took place. Date/Time Smoking Status/Tobacco Use Comment F acamelia Dec 19, 2020 12:07 PM [place]-TOBACCO QUIT 5 TO < 15 YRS [facility] Aug 02, 2015 09:49 AM CURRENT TOBACCO USER [facility] Jun 06, 2014 08:51 AM CURRENT TOBACCO USER [facility] May 04, 2013 09:29 AM CURRENT TOBACCO USER [facility] Apr 24, 2012 07:40 AM CURRENT TOBACCO USER [facility] Advance Directives: All historical and current Section Date Range: From patient's date of to the date document was created. This section includes ALL of a patient's completed or amended [place] Advance and Rescinded Directives. The entries below indicate that a directive exists for the patient, but an actual copy is not included with this document. The data comes from all [facility]. Date Advance Directives Provider Source Jan 02, 2023 STATE-AUTHORIZED PORTABLE ORDERS [facility] Pathology Reports: +/- 30 days of [...] the Encounter. The data comes from all [place] treatment facilities. Date/Time Pathology Report Provider Source Feb 23, 2024 12:25 PM LR SURGICAL PATHOL DANI REPORT: LOCAL TITLE: LR SURGICAL PATHOLOGY REPORT STANDARD TITLE: PATHOLOGY REPORT DATE OF NOTE: FEB 23, 2024@12:25:01 ENTRY DATE: FEB 23, 2024@12:25:01 AUTHOR: TANNA SMITH EXP COSIGNER: URGENCY: STATUS: COMPLETED $APHDR Reporting Lab: [facility] [CLIA# [id number]] [place] [address] - - - - - - - [...] - - - PATHOLOGY REPORT Accession No. [id number] - - - - - [...] Performing Laboratory: Surgical Pathology Report Performed By: [facility] [CLIA# [id number]] [place] [address] $FTR - - - - - - - - - - - - - - - - - - - - - - - - - - - - - - - - - - - - - - - - (End of report) TANNA SMITH MD [facility] Date Feb 23, 2024 - - - - - - - - - - - - - - - - - - - - - - - - - - - - - - - - - - - - - - - - GILDA CARRILLO STANDARD FORM 515 ID:[id number] SEX:M :1950 AGE: 73 LOC:[id number] PCP: Gelacio Michel /mateo/ TANNA SMITH MD STAFF PATHOLOGIST Signed: 02/23/2024 12:25 TANNA SMITH [facility]
--- OUTSIDE RECORDS SUMMARY | 2024-03-25 10:34 | XMS_ITS | Encounter Summary ---
Author Name [facility] [facility] [place] Address [address] [place] [address] Care Team Providers Care Inspector [employer] Name Role Phone GELACIO MICHEL Primary Care [...] PART A Jul 21, 2014 PART A [id number] [phone] Miguelito CARRILLO PATIENT Selected Encounter This section includes the information on record at [place] for the Encounter. Date/Time Encounter Type Encounter Description Reason Provider Source Feb 13, 2024 01:33 PM Outpatient Encounter HT NON-VIDEO MONITORING ICD-10-CM I50.9 Heart failure, unspecified PARAS BOWDEN [facility] Encounter Template Text not used by [place] Assessments - Encounter Diagnoses This section includes the primary and secondary diagnoses documented for the Encounter. Date/Time Primary/Secondary Diagnosis Diagnosis Name Provider Source Feb 13, 2024 01:34 PM PRIMARY Heart failure, unspecified ELLA BOWDEN [facility] Plan of Treatment: Future Appointments (+ 6 months) and Future Tests (+/- 45 days) The Plan of Treatment section includes future care activities for the [facility] [place] [facility] This section includes future appointments and future orders which are active, pending or scheduled. Future Appointments This section includes appointments that were scheduled to occur 6 months from the date of the Encounter, up to a maximum of 20 appointments. The data comes from all [facility]. Appointment Date/Time Appointment Type Appointme nt Facility Name Feb 19, 2024 02:15 PM AMBULATORY - MEDICINE [facility] Feb 26, 2024 10:00 AM AMBULATORY - NONE [facility] Mar 29, 2024 01:00 PM AMBULATORY - SURGERY [facility] Mar 29, 2024 02:00 PM AMBULATORY - SURGERY [facility] Mar 30, 2024 08:30 AM AMBULATORY - REHAB MEDICIN E [facility] Apr 01, 2024 10:00 AM AMBULATORY - NONE [facility] Apr 12, 2024 10:15 AM AMBULATORY - SURGERY [facility] Apr 13, 2024 01:15 PM AMBULATORY - MEDICINE [facility] Apr 13, 2024 01:30 PM AMBULATORY - MEDICINE [facility] Apr 13, 2024 02:00 PM AMBULATORY - MEDICINE [facility] Apr 15, 2024 01:45 PM AMBULATORY - SURGERY [facility] May 06, 2024 04:00 PM AMBULATORY - MEDICINE [facility] May 12, 2024 02:00 PM AMBULATORY - MEDICINE [facility] May 12, 2024 03:00 PM AMBULATORY MEDICINE [facility] Active, Pending, and Scheduled Orders This section includes a listing of several types of active, pending, and scheduled orders, including clinic medications orders, diagnostic test orders, procedure orders and consult orders; where the start date of the order is 45 days before the date of the Encounter or 45 days after the date of theEncounter. The data comes from all [facility]. Test Date/Time Test Type Test Details Facility Name Jan 06, 2024 12:00 AM Laboratory - Chemi stry Order BNP PLASMA SP ONCE [facility] Feb 27, 2024 12:50 PM Consult Order OT OCCUPAT IONAL THERAPY OUTPT EQUIPMENT Cons Hospital Account Liaison's Choice [facility] Lab Results: +/- 30 days of the encounter This section includes the Chemistry and Hematology Lab Results on record with [place] for the patient. Radiology Reports and Pathology Reports are provided separately, in subsequent sections. Lab Results This section contains the Chemistry/Hematology Results that were resulted 30 days before or 30 daysafter the date of the Encounter. Date/Time Source Result Type Result - Unit Interpretation Reference Range Comment Feb 12, 2024 12:12 PM [facility] BASIC METABOLIC PANEL+MG Specimen Type: PLASMA No comment entered. Ordering Provider: FLAQUITO VIRGEN Report Released Date/Time: Feb 04, 2024 02:58 PM Reporting Lab: [facility] [id number] Performing Lab: [facility] [id number] CREATININE 1.4 mg/dL H 0.7-1.2 UREA NITROGEN 21 mg/dL 8-26 GLUCOSE 135 mg/dL H 70-100 SODIUM 136 mmol/L 136-145 POTASSIUM 4.0 mmol/L 3.5-5.1 CHLORIDE 100 mmol/L 98-107 CO2 25 mmol/L 22-29 CALCIUM 9.3 mg/dL 8.4-10.2 MAGNESIUM 2.2 mg/dL 1.6-2.6 ANION GAP 11 mmol/L 5-15 .CREAT EGFR(CKD-EPI ) 53 L >60 Feb 04, 2024 01:40 PM [facility] BNP Specimen Type: PLASMA No comment entered. Ordering Provider: FLAQUITO VIRGEN Report Released Date/Time: Aug 13, 2023 11:38 AM Reporting Lab: [facility] [id number] Performing Lab: [facility] [id number] BNP 23 pg/mL <99 Feb 04, 2024 01:40 PM [facility] BASIC METABOLIC PANEL+MG Specimen Type: PLASMA No comment entered. Ordering Provider: FLAQUITO VIRGEN Report Released Date/Time: Aug 13, 2023 11:38 AM Reporting Lab: [facility] [id number] Performing Lab: [facility] [phone] CREATININE 1.2 mg/dL 0.7-1.2 UREA NITROGEN 18 [...] and tobacco- related health factors from the [place] facility where the Encounter took place. Current Smoking Status This section includes the most current smoking, or tobacco-related health factor, from the [place] facility where the Encounter took place. Date/Time Current Smoking Status Comment Facil ity Dec 19, 2020 12:07 PM VA-TOBACCO FORMER USER [facility] Tobacco Use History This section includes a history of the smoking, or tobacco-related health factors, that were collected on or before the date of the Encounter. The data comes from the [place] facility where the Encounter took place. Date/Time Smoking Status/Tobacco Use Comment F acility Dec 19, 2020 12:07 PM [place]-TOBACCO QUIT 5 TO < 15 YRS [facility] Aug 02, 2015 09:49 AM CURRENT TOBACCO USER [facility] Jun 06, 2014 08:51 AM CURRENT TOBACCO USER [facility] May 04, 2013 09:29 AM CURRENT TOBACCO USER [facility] Apr 24, 2012 07:40 AM CURRENT TOBACCO USER [facility] Advance Directives: All historical and current Section Date Range: From patient's date of to the date document was created. This section includes ALL of a patient's completed or amended [place] Advance and Rescinded Directives. The entries below indicate that a directive exists for the patient, but an actual copy is not included with this document. The data comes from all [facility]. Date Advance Directives Provider Source Jan 02, 2023 STATE-AUTHORIZED PORTABLE ORDERS [facility] Pathology Reports: +/- 30 days of [...] COSIGNER: URGENCY: STATUS: COMPLETED $APHDR Reporting Lab: [facility] [CLIA# [id number]] [place] [address] - - - - - - - [...] Performing Laboratory: Surgical Pathology Report Performed By: [facility] [CLIA# [id number]] [place] [address] $FTR - - - - - - [...] - - GILDA CARRILLO STANDARD FORM 515 ID:[id number] SEX:M :1950 AGE: 73 LOC:[id number] PCP: Gelacio Michel /mateo/ TANNA SMITH MD STAFF PATHOLOGIST Signed: 02/23/2024 12:25 TANNA SMITH [facility] Encounter Notes: All associated encounter notes This section contains the clinical notes associated to the Encounter. Date/Time Encounter Note(s) Provider Source Feb 13, 2024 01:33 PM CARE COORDINATION HOME TELEHEALTH SUMMARIZATION NOTE: LOCAL TITLE: HT MONTHLY MONITOR NOTE STANDARD TITLE: CARE COORDINATION HOME TELEHEALTH SUMMARIZATION DATE OF NOTE: FEB 13, 2024@13:33 ENTRY DATE: FEB 13, 2024@13:33:53 AUTHOR: ELLA BOWDEN EXP COSIGNER: URGENCY: STATUS: COMPLETED The is enrolled in the Home Telehealth (HT) program and continues to be monitored via HT technology. The data sent by the [place] is reviewed and analyzed by the HT staff, who provide ongoing case management and health education while communicating and collaborating with the health care team as appropriate. This note covers a total of 30 minutes for the month monitored. Month monitored: January/ ELLA BOWDEN RN Chronic Cloth Seconds Sorter/HT Signed: 02/13/2024 13:34 ELLA BOWDEN [facility]
--- OUTSIDE RECORDS SUMMARY | 2024-03-25 10:34 | XMS_ITS | Encounter Summary ---
Author Name [facility] [facility] Address [address] [place] [address] Care Team Providers Care Automatic Spreader Operator Name Role Phone GELACIO MICHEL Primary [...] PART A Jul 21, 2014 PART A [phone] Miguelito CARRILLO PATIENT Selected Encounter This section includes the information on record at [place] for the Encounter. Date/Time Encounter Type Encounter Description Reason Pro vider Source Feb 16, 2024 10:45 AM Outpatient Encounter TELEPHONE/ANCILLARY IHE Encounter Template Text not used by [place] Plan of Treatment: Future Appointments (+ 6 months) and Future Tests (+/- 45 days) The Plan of Treatment section includes future care activities for the patient from all [place] treatmentfacilities. This section includes future appointments and future orders which are active, pending or scheduled. Future Appointments This section includes appointments that were scheduled to occur 6 months from the date of the Encounter, up to a maximum of 20 appointments. The data comes from all [place] treatment facilities. Appointment Date/Time Appointment Type Appointme nt Facility Name Feb 19, 2024 02:15 PM AMBULATORY - MEDICINE [facility] Feb 26, 2024 10:00 AM AMBULATORY - NONE [facility] Mar 29, 2024 01:00 PM AMBULATORY - SURGERY [facility] Mar 29, 2024 02:00 PM AMBULATORY - SURGERY [facility] Mar 30, 2024 08:30 AM AMBULATORY - REHAB MEDICIN [facility] Apr 01, 2024 10:00 AM AMBULATORY - NONE [facility] Apr 12, 2024 10:15 AM AMBULATORY - SURGERY [facility] Apr 13, 2024 01:15 PM AMBULATORY - MEDICINE [facility] Apr 13, 2024 01:30 PM AMBULATORY - MEDICINE [facility] Apr 13, 2024 02:00 PM AMBULATORY - MEDICINE [facility] Apr 15, 2024 01:45 PM AMBULATORY - SURGERY [facility] May 06, 2024 04:00 PM AMBULATORY - MEDICINE [facility] May 12, 2024 02:00 PM AMBULATORY - MEDICINE [facility] May 12, 2024 03:00 PM AMBULATORY - MEDICINE [facility] Active, Pending, and Scheduled Orders This section includes a listing of several types of active, pending, and scheduled orders, including clinic medications orders, diagnostic test orders, procedure orders and consult orders; where the start date of the order is 45 days before the date of the Encounter or 45 days after the date of theEncounter. The data comes from all [facility]. Test Date/Time Test Type Test Details Facility Name Jan 06, 2024 12:00 AM Laboratory - Chemi stry Order BNP PLASMA SP ONCE [facility] Feb 27, 2024 12:50 PM Consult Order OT OCCUPAT IONAL THERAPY OUTPT EQUIPMENT Cons [facility] Lab Results: +/- 30 days of the encounter This section includes the Chemistry and Hematology Lab Results on record with [place] for the patient. Radiology Reports and Pathology Reports are provided separately, in subsequent sections. Lab Results This section contains the Chemistry/Hematology Results that were resulted 30 days before or 30 daysafter the date of the Encounter. Date/Time Source Result Type Result - Unit Interpretation Reference Range Comment Feb 12, 2024 12:12 PM [facility] BASIC METABOLIC PANEL+MG Specimen Type: PLASMA No comment entered. Ordering Provider: FLAQUITO VIRGEN Report Released Date/Time: Feb 04, 2024 02:58 PM Reporting Lab: [facility] [id number] Performing Lab: [facility] [id number] CREATININE 1.4 mg/dL H 0.7-1.2 UREA NITROGEN 21 mg/dL 8-26 GLUCOSE 135 mg/dL H 70-100 SODIUM 136 mmol/L 136-145 POTASSIUM 4.0 mmol/L 3.5-5.1 CHLORIDE 100 mmol/L 98-107 CO2 25 mmol/L 22-29 CALCIUM 9.3 mg/dL 8.4-10.2 MAGNESIUM 2.2 mg/dL 1.6-2.6 ANION GAP 11 mmol/L 5-15 .CREAT EGFR(CKD-EPI ) 53 L >60 Feb 04, 2024 01:40 PM [facility] BNP Specimen Type: PLASMA No comment entered. Ordering Provider: FLAQUITO VIRGEN Report Released Date/Time: Aug 13, 2023 11:38 AM Reporting Lab: [facility] [id number] Performing Lab: [facility] [id number] BNP 23 pg/mL <99 Feb 04, 2024 01:40 PM [facility] BASIC METABOLIC PANEL+MG Specimen Type: PLASMA No comment entered. Ordering Provider: FLAQUITO VIRGEN Report Released Date/Time: Aug 13, 2023 11:38 AM Reporting Lab: [facility] [id number] Performing Lab: [facility] [id number] CREATININE 1.2 mg/dL 0.7-1.2 UREA NITROGEN 18 [...] and tobacco- related health factors from the [place] facility where the Encounter took place. Current Smoking Status This section includes the most current smoking, or tobacco-related health factor, from the [place] facility where the Encounter took place. Date/Time Current Smoking Status Comment Tasha ity Dec 19, 2020 12:07 PM VA-TOBACCO QUIT 5 TO < 15 YRS [facility] Tobacco Use History This section includes a history of the smoking, or tobacco-related health factors, that were collected on or before the date of the Encounter. The data comes from the [place] facility where the Encounter took place. Date/Time Smoking Status/Tobacco Use Comment F acility Dec 19, 2020 12:07 PM [place]-TOBACCO QUIT 5 TO < 15 YRS [facility] Aug 02, 2015 09:49 AM CURRENT TOBACCO USER [facility] Jun 06, 2014 08:51 AM CURRENT TOBACCO USER [facility] May 04, 2013 09:29 AM CURRENT TOBACCO USER [facility] Apr 24, 2012 07:40 AM CURRENT TOBACCO USER [facility] Advance Directives: All historical and current Section Date Range: From patient's date of to the date document was created. This section includes ALL of a patient's completed or amended [place] Advance and Rescinded Directives. The entries below indicate that a directive exists for the patient, but an actual copy is not included with this document. The data comes from all [facility]. Date Advance Directives Provider Source Jan 02, 2023 STATE-AUTHORIZED PORTABLE ORDERS [facility] Pathology Reports: +/- 30 days of [...] the Encounter. The data comes from all [place] treatment facilities. Date/Time Pathology Report Provider Source Feb 23, 2024 12:25 PM [facility] SURGICAL PATHOL OGY REPORT: LOCAL TITLE: LR SURGICAL PATHOLOGY REPORT STANDARD TITLE: PATHOLOGY REPORT DATE OF NOTE: FEB 23, 2024@12:25:01 ENTRY DATE: FEB 23, 2024@12:25:01 AUTHOR: TANNA SMITH EXP COSIGNER: URGENCY: STATUS: COMPLETED $APHDR Reporting Lab: [facility] [CLIA# [id number]] [place] [address] - - - - - - - [...] - - - PATHOLOGY REPORT Accession No. [id number] - - - - - [...] Performing Laboratory: Surgical Pathology Report Performed By: [facility] [CLIA# [id number]] [place] [address] $FTR - - - - - - - - - - - - - - - - - - - - - - - - - - - - - - - - - - - - - - - - (End of report) TANNA SMITH MD [facility] Date Feb 23, 2024 - - - - - - - - - - - - - - - - - - - - - - - - - - - - - - - - - - - - - - - - GILDA CARRILLO STANDARD FORM 515 ID:[id number] SEX:M :1950 AGE: 73 LOC:[id number] PCP: Gelacio Michel /mateo/ TANNA SMITH MD STAFF PATHOLOGIST Signed: 02/23/2024 12:25 TANNA SMITH [facility] Encounter Notes: All associated encounter notes This section contains the clinical notes associated to the Encounter. Date/Time Encounter Note(s) Provider Source Feb 16, 2024 10:45 AM GASTROENTEROLOGY [facility] OUTPATIENT NOTE: LOCAL TITLE: GI CLINIC NURSING NOTE STANDARD TITLE: GASTROENTEROLOGY NURSING OUTPATIENT NOTE DATE OF NOTE: FEB 16, 2024@10:45 ENTRY DATE: FEB 16, 2024@10:45:23 AUTHOR: FRANCY MENDEZ EXP COSIGNER: URGENCY: STATUS: COMPLETED GI PROCEDURE PATIENT TELEPHONE CONTACT NOTE Contacted patient regarding their upcoming Colonoscopy. Patient indicates readiness to learn? 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 Diagnosis of sleep apnea: No --Received prep from pharmacy: Ramona Wolfe Patient was able to state prep instructions back to nurse: Yes --Verbalizes understanding about diet restrictions and NPO status for procedure. Yes - 3 days before procedure: Start low fiber diet - 2 days before procedure: Start a clear liquid diet after your mid-day meal. - Day of the procedure: Continue to drink clear liquids up to two hours before the procedure. --Understands need to take all heart and blood pressure medications, in the morning, on the day of the procedure: Yes --Patient is on blood-thinners: Takes apixaban. Pt. to hold for two days prior to procedure and day of procedure per AC consult. Patient verbalized understandng. --Patient is a diabetic: No (If diabetic, patient understands need to HOLD all diabetic medications and to check blood sugar prior to appointment) --Patient has Pacemaker or AICD: No --Confirmed the patient will call [phone] (GI Nurse Line for procedure related questions) or [phone] if they need to cancel for any reason --Any questions or patient concerns: None --Verbalizes understanding of all instructions /mateo/ FRANCY MENDEZ RN REGISTERED NURSE Signed: 02/16/2024 10:46 FRANCY MENDEZ [facility]
--- OUTSIDE RECORDS SUMMARY | 2024-03-25 10:34 | XMS_ITS | Encounter Summary ---
Author Name [facility] [facility] [place] Address [address] [place] [address] Care Team Providers Care Lurer Name Role Phone GELACIO MICHEL Primary Care [...] PART A Jul 21, 2014 PART A [id number] [phone] Miguelito CARRILLO PATIENT Selected Encounter This section includes the information on record at [place] for the Encounter. Date/Time Encounter Type Encounter Description Reason Pro vider Source Feb 18, 2024 03:28 PM Outpatient Encounter GI ENDOSCOPY IHE Encounter Template Text not used by [place] Plan of Treatment: Future Appointments (+ 6 months) and Future Tests (+/- 45 days) The Plan of Treatment section includes future care activities for the patient from all [place] treatmentfacilities. This section includes future appointments and [...] 19, 2024 02:15 PM AMBULATORY - MEDICINE [facility] Feb 26, 2024 10:00 AM AMBULATORY - NONE [facility] Mar 29, 2024 01:00 PM AMBULATORY - SURGERY [facility] Mar 29, 2024 02:00 PM AMBULATORY - SURGERY [facility] Mar 30, 2024 08:30 AM AMBULATORY - REHAB MEDICIN [facility] Apr 01, 2024 10:00 AM AMBULATORY - NONE [facility] Apr 12, 2024 10:15 AM AMBULATORY - SURGERY [facility] Apr 13, 2024 01:15 PM AMBULATORY - MEDICINE [facility] Apr 13, 2024 01:30 PM AMBULATORY - MEDICINE [facility] Apr 13, 2024 02:00 PM AMBULATORY - MEDICINE [facility] Apr 15, 2024 01:45 PM AMBULATORY - SURGERY [facility] May 06, 2024 04:00 PM AMBULATORY - MEDICINE [facility] May 12, 2024 02:00 PM AMBULATORY - MEDICINE [facility] May 12, 2024 03:00 PM AMBULATORY - MEDICINE [facility] Active, Pending, and Scheduled Orders This section includes a listing of several types of active, pending, and scheduled orders, including clinic medications orders, diagnostic test orders, procedure orders and consult orders; where the start date of the order is 45 days before the date of the Encounter or 45 days after the date of theEncounter. The data comes from all [facility]. Test Date/Time Test Type Test Details Facility Name Jan 06, 2024 12:00 AM Laboratory - Chemi stry Order BNP PLASMA SP ONCE [facility] Feb 27, 2024 12:50 PM Consult Order OT OCCUPAT IONAL THERAPY OUTPT EQUIPMENT Cons Fabrication Inspector's Choice [facility] Lab Results: +/- 30 days of [...] Range Comment Feb 12, 2024 12:12 PM [facility] BASIC METABOLIC PANEL+MG Specimen Type: PLASMA No comment entered. Ordering Provider: FLAQUITO VIRGEN Report Released Date/Time: Feb 04, 2024 02:58 PM Reporting Lab: [facility] [id number] Performing Lab: [facility] [id number] CREATININE 1.4 mg/dL H 0.7-1.2 UREA NITROGEN 21 mg/dL 8-26 GLUCOSE 135 mg/dL H 70-100 SODIUM 136 mmol/L 136-145 POTASSIUM 4.0 mmol/L 3.5-5.1 CHLORIDE 100 mmol/L 98-107 CO2 25 mmol/L 22-29 CALCIUM 9.3 mg/dL 8.4-10.2 MAGNESIUM 2.2 mg/dL 1.6-2.6 ANION GAP 11 mmol/L 5-15 .CREAT EGFR(CKD-EPI ) 53 L >60 Feb 04, 2024 01:40 PM [facility] BNP Specimen Type: PLASMA No comment entered. Ordering Provider: FLAQUITO VIRGEN Report Released Date/Time: Aug 13, 2023 11:38 AM Reporting Lab: [facility] [id number] Performing Lab: [facility] [id number] BNP 23 pg/mL <99 Feb 04, 2024 01:40 PM [facility] BASIC METABOLIC PANEL+MG Specimen Type: PLASMA No comment entered. Ordering Provider: FLAQUITO VIRGEN Report Released Date/Time: Aug 13, 2023 11:38 AM Reporting Lab: [facility] [id number] Performing Lab: [facility] [id number] CREATININE 1.2 mg/dL 0.7-1.2 UREA NITROGEN 18 [...] and tobacco- related health factors from the [place] facility where the Encounter took place. Current Smoking Status This section includes the most current smoking, or tobacco-related health factor, from the [place] facility where the Encounter took place. Date/Time Current Smoking Status Comment Tasha woods Dec 19, 2020 12:07 PM VA-TOBACCO FORMER USER [facility] Tobacco Use History This section includes a history of the smoking, or tobacco-related health factors, that were collected on or before the date of the Encounter. The data comes from the [place] facility where the Encounter took place. Date/Time Smoking Status/Tobacco Use Comment F acamelia Dec 19, 2020 12:07 PM VA-TOBACCO QUIT 5 TO < 15 YRS [facility] Aug 02, 2015 09:49 AM CURRENT TOBACCO USER [facility] Jun 06, 2014 08:51 AM CURRENT TOBACCO USER [facility] May 04, 2013 09:29 AM CURRENT TOBACCO USER [facility] Apr 24, 2012 07:40 AM CURRENT TOBACCO USER [facility] Advance Directives: All historical and current Section Date Range: From patient's date of to the date document was created. This section includes ALL of a patient's completed or amended [place] Advance and Rescinded Directives. The entries below indicate that a directive exists for the patient, but an actual copy is not included with this document. The data comes from all [facility]. Date Advance Directives Provider Source Jan 02, 2023 STATE-AUTHORIZED PORTABLE ORDERS [facility] Pathology Reports: +/- 30 days of the [...] the Encounter. The data comes from all [place] treatment facilities. Date/Time Pathology Report Provider Source Feb 23, 2024 12:25 PM LR SURGICAL PATHOL [facility] REPORT: LOCAL TITLE: LR SURGICAL PATHOLOGY REPORT STANDARD TITLE: PATHOLOGY REPORT DATE OF NOTE: FEB 23, 2024@12:25:01 ENTRY DATE: FEB 23, 2024@12:25:01 AUTHOR: TANNA SMITH EXP COSIGNER: URGENCY: STATUS: COMPLETED $APHDR Reporting Lab: [facility] [CLIA# [id number]] [place] [address] - - - - - - - [...] - - - PATHOLOGY REPORT Accession No. [id number] - - - - - [...] Performing Laboratory: Surgical Pathology Report Performed By: [facility] [CLIA# [id number]] [place] [address] $FTR - - - - - - - - - - - - - - - - - - - - - - - - - - - - - - - - - - - - - - - - (End of report) TANNA SMITH MD [facility] Date Feb 23, 2024 - - - - - - - - - - - - - - - - - - - - - - - - - - - - - - - - - - - - - - - - GILDA CARRILLO STANDARD FORM 515 ID:[id number] SEX:M :1950 AGE: 73 LOC:[id number] PCP: Gelacio Michel /mateo/ TANNA SMITH MD STAFF PATHOLOGIST Signed: 02/23/2024 12:25 TANNA SMITH [facility] Encounter Notes: All associated encounter notes This section contains the clinical notes associated to the Encounter. Date/Time Encounter Note(s) Provider Source Feb 19, 2024 04:54 PM GASTROENTEROLOGY PROCEDURE NOTE: LOCAL TITLE: CP GASTROENTEROLOGY PROCEDURE STANDARD TITLE: GASTROENTEROLOGY PROCEDURE NOTE DATE OF NOTE: FEB 19, 2024@16:54:37 ENTRY DATE: FEB 19, 2024@16:54:37 AUTHOR: CLINICAL,DEVICE PRO EXP COSIGNER: URGENCY: STATUS: COMPLETED PROCEDURE SUMMARY CODE: Machine Resulted DATE/TIME PERFORMED: FEB 19, 2024@14:29:5 DOCUMENT IN [facility] SEE FULL REPORT IN [facility]IST[facility] SIGNATURE NOT REQUIRED SEE SIGNATURE IN [facility] (Provation (Colonoscopy)) AUTO-INSTRUMENT DIAGNOSIS Procedure: NOTETYPE Nurse Note NEW Release Status: Released Off-Line Verified Date Verified: Feb 19, 2024@16:54:36 CHECK-IN User:[email or web address] Procedure:Colon Upper procedure indication:N/A Lower procedure indication:Yes Lower procedure indication:FIT + Patient identification:Full name, ID band on:Yes Care Plan - monitor for procedural or sedation related events and to promote patient comfort and safety:Yes Any questions or patient concerns:No Time of last solid food:friday 11:30am Time of last liquid intake:11:30am water Prep taken:Yes Prep type:Bisacodyl, GoLytely Percentage of prep taken:90-100% Split:Yes Time prep finished:7am Last BM:Clear, Yellow Patient Labs:No Barrier to learning:No Can the patient sign their own consents:Yes Patient education:Standard Preferred Learning Style: Verbal: Pre and post procedure teaching given to: Patient: Pre and post-procedure teaching completed: Verbal: Response to teaching: Demonstrates r by stating/acknowledging understandi and post-procedure/discharge instruc Patient mobility:Ambulatory w/o assist Transportation after procedure:Yes Sales Facilitator location:Waiting Room Drivers phone#:[phone] Sales Facilitator's name / relationship:imke, son Are we allowed to speak with your catering driver about your medical information post procedure:YES Anesthesia case:No Pre-Procedure / Active Medications Anticoagulant use: Antiplatelet use: - Patient Denies Use NSAID use: - Patient Denies Use Opioid antagonist use: - Patient Denies Use Anticoagulant use: Apixaban Last Taken 02/16/2024 Confirmed 02/19/2024 ALLERGIES Iodine/Contrast Medium Allergy: - Patient Denies Allergy - Latex Allergy: - Patient Denies Allergy - No Known Drug Allergies - Confirmed 02/19/2024 HEALTH HISTORY User:HBS MEDICAL HISTORY status:N/A Cardiovascular:Yes Cardiovascular diagnoses:Atrial Fibrillation, CHF, Hypertension, Tachycardia Comments: Pulmonary:Yes Pulmonary diagnoses:Asthma, COPD Home O2: Comments: GI:Yes GI diagnoses:Umbilical hernia Family History:Family History of Colon Cancer Comments:Grandmother in 70s Diabetes:Yes Treated with:Injectables Last dose: Blood Glucose: Comments: Renal/Endocrine:No Neuro/Musculoskeletal:No Miscellaneous / Infectious:No Psychiatric:No SURGICAL HISTORY Previous surgery:Yes Surgery:Lami, Tonsils, Adenoids History of problems with anesthesia:No Risk factors for post-sedation delirium:Yes Following risk factors:Age >70 SOCIAL HISTORY Nicotine/Smoking history:No Alcohol history:Yes Amount/frequency:2/day Last used: Recreational drug use:Yes Substance name(s):Marijuana Frequency:1 month ago ALERTS Alert Comments Last Updated By Last Updated On No Known Drug Allergies [facility] 02/19/2024 2:49:30 PM Latex Allergy: Patient Denies Allergy [facility] 02/19/2024 2:49:31 PM Iodine/Contrast Medium Allergy: Patient Denies Allergy [facility] 02/19/2024 2:49:33 PM METAL - No Metal Heidi Biggs 02/19/2024 2:52:49 PM CODE STATUS - Full Heidi Biggs 02/19/2024 2:52:31 PM PATIENT ASSESSMENT - PREPROCEDURE User:HBS Time:02/19/2024 14:52 Patient Assessment:Standard Level of conciousness: Fully awake: Emotional Status: Calm, Cooperative: Baseline pain: None: Skin Exam: Warm, Dry: IV started:Yes IV Site: IV Type: Size: IV Solution: IV Rate: Inserted by: Dentures, glasses or hearing aid removed and stored:N/A Loose Teeth:No Cardiac Rhythm Monitored:Yes Cardiac Rhythm:Sinus Rhythm Comments: POST User:HBS To endoscopist, web press operator and nurse:Lara concerns for recovery and management of this patient have been discussed Nurse verbally confirms with team:Specimens identified and labeled (where applicable), Any equipment problems to be addressed VAPAS phase 1 performed:Yes Score of 13 is fit for Discharge from Phase 1 : NOTE: for discharge to 13. Patients with a sco review from a LIP (lice If the pat vs. Monito the patien A selection is required for all sections: Oxygenation:2 Points - Sp02 greater than or equal to 94% or baseline on room air PACU Respiratory Status:2 Points - Normal breathing and deep cough on command Circulatory Status:2 Points - BP/HR less than 20% or 20 mmHg of baseline Level of Consciousness:2 Points - Fully awake or easily awakened Pain:2 Points - Minimal or none - Pain Score 0-4 or at tolerable level or at baseline Nausea/Vomitin Points - Minimal or none Level of Activity:2 Points - Able to move all extremities voluntarily or on command or moves all extremelies with the exception of extremity treated with peripheral nerve block or patient baseline Phase 1 Score (out of 14):14 Completed at:02/19/2024 16:26 VAPAS Phase 1 disposition:Phase 2 Recovery VAPAS Phase 2 User:jas MCCLELLAND Phase 2 Score of 9 is fit for discharge from Phase 2 NOTE A score of 0 in any category or any deterioration in patient condition exudes eligibility for discharge unless approved by a LIP (licenced independant practitioner) A selection is required for all sections Pain:2 Points - Minimal or none - Pain Score 0-4 or at tolerable level or at baseline Nausea/Vomitin Points - Minimal or none Circulatory Status:2 Points - BP/HR less than 20% or 20 mmHg of baseline Activity and Mental Status:2 Points - Oriented x 3 AND has steady gait (at baseline for non-ambulating patients) Surgical Site/Dressin points - Dry and clean or Not Applicable (for example endoscopy) Total Score of the Phase 2 assessment is 9 or greater:Yes Score of 9 is fit for discharge from Phase 2: Phase 2 Completed at:02/19/2024 16:54 DISCHARGE QUESTIONS User:jas Pain now:No Cardiac Rhythm Monitored:Yes Cardiac Rhythm:Sinus Rhythm Comments: IV Discontinued:Yes Time IV Discontinued:02/19/2024 16:33 Total Amount Infused (mL): IV Site Condition:Intact Wristband:Removed from patient and placed in secure shred bin, per policy. Discharge Criteria met:Yes Post-procedure education:Standard Post-procedure education completed: Yes: Patient/Family given opportunity to ask questions and questions answered: Yes: Patient and/or responsible adult acknowledges understanding of discharge instructions: Yes: Patient/family/car include signs and activity/diet/medi Yes: Discharge instructions/pamphlets given:Yes Topic(s):Colonoscopy , Polyps Patient informed when to restart 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:Yes Date to restart:02/22/24 Follow up (months/years):3 years Released to:Self with adult when applicable Transportation after procedure:Yes Sales Facilitator location:Waiting Room Drivers phone#:[phone] Sales Facilitator's name / relationship:mike, son Are we allowed to speak with your catering driver about your medical information post procedure:YES Comments: Events Reporting Report ADR Hotline #[id number] Should any of the following occur during the procedure, forward a copy of this form to Jonelle (JOSE G). Adverse event(s):No Medications Time Medication Dose Entered By Notes 15:43:15 Versed IV VORB 1 mg Total: 4 mg HBS 15:43:15 Fentanyl IV VORB 25 mcg Total: 100 mcg HBS 15:30:01 Versed IV VORB 1 mg HBS 15:30:00 Fentanyl IV VORB 25 mcg HBS 15:15:51 Versed IV VORB 2 mg HBS 15:15:50 Fentanyl IV VORB 50 mcg HBS No Notes Taken Vitals Time BP HR RESP O2 Sat CO2 Entered By 16:39:50 162/93 92 20 94 matzekm 16:32:37 142/76 86 34 99 matzekm 16:26:34 132/77 95 22 100 - HBS 16:22:03 100/57 100 15 93 - HBS 16:18:16 100/51 90 54 94 - HBS 16:13:45 106/53 89 16 93 - HBS 16:07:42 102/46 92 19 93 - HBS 16:04:53 99/51 90 18 92 - HBS 16:01:59 90/46 89 17 92 - HBS 15:58:54 93/46 88 16 95 - HBS 15:54:29 89/48 89 25 96 - HBS 15:51:11 92/46 95 16 92 - HBS 15:49:11 88/43 93 18 93 - HBS 15:45:49 98/52 91 19 92 - HBS 15:40:20 105/55 90 24 94 - HBS 15:36:01 103/55 92 82 18 - HBS 15:32:36 108/58 93 20 93 - HBS 15:26:50 106/56 91 22 93 - HBS 15:21:18 108/55 83 18 95 - HBS 15:18:30 110/59 92 21 96 - HBS 15:09:38 139/69 96 21 96 - HBS 14:53:12 149/72 91 25 100 HBS No Notes Taken PROCEDURE LOG Time Data Entered By 16:53:49 Patient Activities : Getting dressed matzekm 16:40:08 Patient Monitoring - Yes : Cardiac Rhythm : Sinus Rhythm,-, Level of comfort : Comfortable, Response to medication/agent : -, Level of conciousness : 2 Fully awake or returned to presedation LOC,-, Pain now : NO, Pain score : -, Pain Location : - matzekm 16:38:45 Patient Activities : Sitting at side of bed,Denies dizziness/light headedness,Denies nausea,Offers no complaints,Drinking fluids [facility] 16:33:02 Patient Monitoring - Yes : Cardiac Rhythm : Sinus Rhythm,-, Level of comfort : Comfortable, Response to medication/agent : -, Level of conciousness : 2 Fully awake or returned to presedation LOC,-, Pain now : NO, Pain score : -, Pain Location : - [facility] 16:26:44 Patient Monitoring : Cardiac Rhythm : Sinus Rhythm,-, Level of comfort : Comfortable, Response to medication/agent : -, Procedure tolerance : -, Level of conciousness : 2 Fully awake or returned to presedation LOC,-, Pain now : - [facility] 16:22:49 Notes: Pt. denies procedural pain but says chronic back pain is 6/10. Assisted with repositioning. [facility] 16:22:13 Patient Monitoring : Cardiac Rhythm : Sinus Rhythm,-, Level of comfort : Comfortable, Response to medication/agent : -, Procedure tolerance : -, Level of conciousness : 2 Fully awake or returned to presedation LOC,-, Pain now : NO [facility] 16:18:23 Patient Monitoring : Cardiac Rhythm : Sinus Rhythm,-, Level of comfort : Comfortable, Response to medication/agent : -, Procedure tolerance : Well,-, Level of conciousness : 2 Fully awake or returned to presedation LOC,-, Pain now : NO [facility] 16:14:24 Notes: Complaining of 4/10 sharp, right-lower quadrant abdominal pain described as a cramp and hip pain. MD took air out. [facility] 16:13:56 Patient Monitoring : Cardiac Rhythm : Sinus Rhythm,-, Level of comfort : Comfortable, Response to medication/agent : -, Procedure tolerance : Well,-, Level of conciousness : 2 Fully awake or returned to presedation LOC,-, Pain now : NO [facility] 16:07:48 Patient Monitoring : Cardiac Rhythm : Sinus Rhythm,-, Level of comfort : Comfortable, Response to medication/agent : -, Procedure tolerance : Well,-, Level of conciousness : 2 Fully awake or returned to presedation LOC,-, Pain now : NO [facility] 16:05:02 Patient Monitoring : Cardiac Rhythm : Sinus Rhythm,-, Level of comfort : Comfortable, Response to medication/agent : -, Procedure tolerance : Well,-, Level of conciousness : 2 Fully awake or returned to presedation LOC,-, Pain now : NO [facility] 16:02:07 Patient Monitoring : Cardiac Rhythm : Sinus Rhythm,-, Level of comfort : Comfortable, Response to medication/agent : -, Procedure tolerance : Well,-, Level of conciousness : 2 Fully awake or returned to presedation LOC,-, Pain now : NO [facility] 15:59:00 Patient Monitoring : Cardiac Rhythm : Sinus Rhythm,-, Level of comfort : Comfortable, Response to medication/agent : -, Procedure tolerance : Well,-, Level of conciousness : 2 Fully awake or returned to presedation LOC,-, Pain now : NO [facility]BS 15:55:05 Notes: Dr. Healy alerted to hypotension. Patient denies feeling lightheaded. no new orders. Will continue to monitor. HBS 15:54:40 Patient Monitoring : Cardiac Rhythm : Sinus Rhythm,-, Level of comfort : Comfortable, Response to medication/agent : -, Procedure tolerance : Well,-, Level of conciousness : 2 Fully awake or returned to presedation LOC,-, Pain now : NO [facility]BS 15:51:23 Patient Monitoring : Cardiac Rhythm : Sinus Rhythm,-, Level of comfort : Comfortable, Response to medication/agent : -, Procedure tolerance : Well,-, Level of conciousness : 2 Fully awake or returned to presedation LOC,-, Pain now : NO [facility]BS 15:49:23 Patient Monitoring : Cardiac Rhythm : Sinus Rhythm,-, Level of comfort : Comfortable, Response to medication/agent : -, Procedure tolerance : Well,-, Level of conciousness : 2 Fully awake or returned to presedation LOC,-, Pain now : NO [facility]BS 15:46:00 Patient Monitoring : Cardiac Rhythm : Sinus Rhythm,-, Level of comfort : Comfortable, Response to medication/agent : Calming, Procedure tolerance : Well,-, Level of conciousness : 2 Fully awake or returned to presedation LOC,-, Pain now : NO [facility]BS 15:42:16 Notes: Pt. endorsing cramping HBS 15:40:30 Patient Monitoring : Cardiac Rhythm : Sinus Rhythm,-, Level of comfort : Comfortable, Response to medication/agent : -, Procedure tolerance : Well,-, Level of conciousness : 2 Fully awake or returned to presedation LOC,-, Pain now : NO [facility]BS 15:36:18 Patient Monitoring : Cardiac Rhythm : Sinus Rhythm,-, Level of comfort : Comfortable, Response to medication/agent : -, Procedure tolerance : Well,-, Level of conciousness : 2 Fully awake or returned to presedation LOC,-, Pain now : NO HBS 15:34:42 Miscellaneous Maneuvers : Abdominal pressure applied,Abdominal pressure released HBS 15:32:56 Patient Monitoring : Cardiac Rhythm : Sinus Rhythm,-, Level of comfort : Comfortable, Response to medication/agent : Calming, Procedure tolerance : Well,-, Level of conciousness : 2 Fully awake or returned to presedation LOC,-, Pain now : NO HBS 15:28:33 Notes: Pt. endorsing cramping. HBS 15:27:05 Patient Monitoring : Cardiac Rhythm : Sinus Rhythm,-, Level of comfort : Comfortable, Response to medication/agent : -, Procedure tolerance : Well,-, Level of conciousness : 2 Fully awake or returned to presedation LOC,-, Pain now : NO [facility]BS 15:21:31 Patient Monitoring : Cardiac Rhythm : Sinus Rhythm,-, Level of comfort : Comfortable, Response to medication/agent : -, Procedure tolerance : Well,-, Level of conciousness : 2 Fully awake or returned to presedation LOC,-, Pain now : NO [facility]BS 15:18:41 Patient Monitoring : Cardiac Rhythm : Sinus Rhythm,-, Level of comfort : Comfortable, Response to medication/agent : Calming, Procedure tolerance : -, Level of conciousness : 2 Fully awake or returned to presedation LOC,-, Pain now : NO HBS 15:18:27 Notes: Had to move BP cuff to other arm. Pt.stable. HBS 15:09:46 Patient Monitoring : Cardiac Rhythm : Sinus Rhythm,-, Level of comfort : Comfortable, Response to medication/agent : -, Procedure tolerance : -, Level of conciousness : 2 Fully awake or returned to presedation LOC,-, Pain now : NO HBS 15:05:48 Notes: Patient was consented in pre-procedure bay. HBS 14:53:24 Patient Monitoring - Yes : Cardiac Rhythm : Atrial Fib,-, Level of comfort : Comfortable, Response to medication/agent : -, Level of conciousness : 2 Fully awake or returned to presedation LOC,-, Pain now : NO, Pain score : -, Pain Location : - HBS 14:40:00 Notes: Patient given albuterol neb per his request in pre-procedure bay. State he was feeling wheezy from getting in the bed. 02 was 97% on room air. States he is feeling his baseline breathing brothers today. [facility] Specimens Collected Jar Sample Type Procedure Lab Type Location Indication Entered By 1 Polypectomy Colonoscopy Histology -- - Cecum, Colon R/O Adenoma, 1st Pass without AI (4 \T\ 5), Polyp HBS 2 Polypectomy Colonoscopy Histology -- - Ascending, Colon 1st Pass without AI (4 \T\ 5), R/O Adenoma, Polyp HBS 3 Polypectomy Colonoscopy Histology -- - Ascending, Colon R/O Adenoma, 2nd Pass with AI (4 \T\ 5), Polyp HBS 4 Polypectomy Colonoscopy Histology -- - Transverse, Colon R/O Adenoma, Polyp HBS 5 Polypectomy Colonoscopy Histology -- - Descending, Colon R/O Adenoma, Polyp HBS 6 Polypectomy Colonoscopy Histology -- - Rectum R/O Adenoma, Polyp HBS Time Tracking Time Event Entered By 16:53:52 Ravindra mark 16:27:06 To recovery room with RN [facility] 16:19:52 Recovery start [facility] 16:19:52 Scope out HBS 15:58:35 Extent Reached 2nd HBS 15:41:12 Extent Reached 1st HBS 15:21:12 Scope in HBS 15:13:07 Time out HBS 15:12:41 MD in procedure room [facility] 15:05:32 Patient in procedure room [facility] 14:31:14 Preprocedure [facility] 14:31:13 Arrival [facility] Provider Signatures Seth Hinton [facility] ESIGNED - 02/19/2024 14:33:11 [facility] ESIGNED - 02/19/2024 16:54:13 Heidi Biggs RN ([facility]) ESIGNED - 02/19/2024 16:27:08 Administrative Closure: 02/19/2024 by: CLINICAL,DEVICE PROXY SERVICE CLINICAL,DEVICE PROXY SERVICE [facility] Feb 19, 2024 04:34 PM GASTROENTEROLOGY PROCEDURE NOTE: LOCAL TITLE: CP GASTROENTEROLOGY PROCEDURE STANDARD TITLE: GASTROENTEROLOGY PROCEDURE NOTE DATE OF NOTE: FEB 19, 2024@16:34:09 ENTRY DATE: FEB 19, 2024@16:34:09 AUTHOR: CLINICAL,DEVICE PRO EXP COSIGNER: URGENCY: STATUS: COMPLETED PROCEDURE SUMMARY CODE: Machine Resulted DATE/TIME PERFORMED: FEB 19, 2024@14:29:5 DOCUMENT IN VISTA IMAGING SEE FULL REPORT IN [facility]ISTA [facility]AG[facility] SIGNATURE NOT REQUIRED SEE SIGNATURE IN [facility]ISTA IMAGING (Provation (Colonoscopy)) AUTO-INSTRUMENT DIAGNOSIS Procedure: 42934-1 GI PROCEDURE Release Status: Released Off-Line Verified Date Verified: Feb 19, 2024@16:34:06 Polyps 1st Pass Right Colon: 5 Polyps 2nd Pass Right Colon: 1 Polyps Per Colonoscopy: 10+ Procedure: Colonoscopy Indications: Positive fecal immunochemical test Medicines: Fentanyl IV VORB 100 mcgs, Versed IV VORB 4 mgs Complications: No immediate complications. Procedure: After I obtained informed consent, the scope was passed under direct vision. Throughout the procedure, the patient's blood pressure, pulse, and oxygen saturations were monitored continuously. The was introduced through the anus and advanced to the terminal ileum, with identification of the appendiceal orifice and IC valve. The exam was performed using optical visualization assisted by an artificial intelligence device (Virtual 3-D Display for Smartphones) designed to detect polyps. The colonoscopy was performed without difficulty. The patient tolerated the procedure well. The quality of the bowel preparation was evaluated using the BBPS ([place] Bowel Preparation Scale) with scores of: Right Colon = 2 (minor amount of residual staining, small fragments of stool and/or opaque liquid, but mucosa seen well), Transverse Colon = 2 (minor amount of residual staining, small fragments of stool and/or opaque liquid, but mucosa seen well) and Left Colon = 2 (minor amount of residual staining, small fragments of stool and/or opaque liquid, but mucosa seen well). The total BBPS score equals 6. The right colon was inspected twice per standard of care. Artificial Intelligence was used to assist with polyp detection during the second right colonic inspection. A distal attachment (clear cap or endocuff) was used for inspection. Findings: The perianal and digital rectal examinations were normal. A 10 mm polyp was found in the cecum. The polyp was sessile. Found during first inspection of the right colon without Artificial Intelligence. The polyp was removed with a cold snare. Resection and retrieval were complete. Four sessile polyps were found in the ascending colon. The polyps were 4 to 8 mm in size. Found during first inspection of the right colon without Artificial Intelligence. These polyps were removed with a cold snare. Resection and retrieval were complete. A 3 mm polyp was found in the ascending colon. The polyp was sessile. Found during second inspection of the right colon with Artificial Intelligence. The polyp was removed with a cold snare. Resection and retrieval were complete. Three sessile polyps were found in the transverse colon. The polyps were 5 to 6 mm in size. These polyps were removed with a cold snare. Resection and retrieval were complete. A 4 mm polyp was found in the descending colon. The polyp was sessile. The polyp was removed with a cold snare. Resection and retrieval were complete. To prevent bleeding after the polypectomy, one hemostatic clip was successfully placed (MR conditional). There was no bleeding at the end of the procedure. Two sessile polyps were found in the rectum. The polyps were 3 to 5 mm in size. These polyps were removed with a cold snare. Resection and retrieval were complete. Many medium-mouthed diverticula were found in the sigmoid colon. The retroflexed view of the distal rectum and anal verge was normal and showed no anal or rectal abnormalities. Moderate Sedation: Moderate (conscious) sedation was administered by the nurse and supervised by the endoscopist. The patient's oxygen saturation, heart rate, blood pressure and response to care were monitored. Total physician intraservice time was 56 minutes. Impression: - One 10 mm polyp in the cecum, removed with a cold snare. Resected and retrieved. - Four 4 to 8 mm polyps in the ascending colon, removed with a cold snare. Resected and retrieved. - One 3 mm polyp in the ascending colon, removed with a cold snare. Resected and retrieved. - Three 5 to 6 mm polyps in the transverse colon, removed with a cold snare. Resected and retrieved. - One 4 mm polyp in the descending colon, removed with a cold snare. Resected and retrieved. Clip (MR conditional) was placed. - Two 3 to 5 mm polyps in the rectum, removed with a cold snare. Resected and retrieved. - Diverticulosis in the sigmoid colon. - The distal rectum and anal verge are normal on retroflexion view. Recommendation: - Discharge patient to home (ambulatory). - Await pathology results. - Repeat colonoscopy in 3 years for surveillance. - Resume Eliquis (apixaban) at prior dose on 02/22/24 (Oscar). Attending Participation: I was present and participated during the entire procedure, including non-lara portions. Bri Healy MD 02/19/2024 4:33:54 PM Number of Addenda: 0 Note Initiated On: 02/19/2024 2:29 PM Scope In: 3:21:00 PM Scope Out: 4:20:09 PM [facility] [address] [place] [address] --- Administrative Closure: 02/19/2024 by: CLINICAL,DEVICE PROXY SERVICE CLINICAL,DEVICE PROXY SERVICE [facility]
--- OUTSIDE RECORDS SUMMARY | 2024-03-25 10:34 | XMS_ITS | Encounter Summary ---
Author Name [facility] [place] [facility] [place] Address [address] [place] [address] Care Team Providers Care Assistant Surveyor Name Role Phone GELACIO MICHEL Primary Care [...] PART A Jul 21, 2014 PART A [id number] [phone] Miguelito CARRILLO PATIENT Selected Encounter This section includes the information on record at [place] for the Encounter. Date/Time Encounter Type Encounter Description Reason Provider Source Feb 19, 2024 02:15 PM MOD SED SAME PHYS/QHP EA GI ENDOSCOPY ICD-10-CM D12.0 Benign neoplasm of cecum BRI HEALY Encounter Template Text not used by [place] Assessments - Encounter Diagnoses This section includes the primary and secondary diagnoses documented for the Encounter. Date/Time Primary/Secondary Diagnosis Diagnosis Name Provider Source Feb 20, 2024 10:36 AM PRIMARY Benign neoplasm of cecum [facility] Feb 20, 2024 10:36 AM SECONDARY Benign neoplasm of ascending colon [facility] Feb 20, 2024 10:36 AM SECONDARY Benign neoplasm of descending colon [facility] Feb 20, 2024 10:36 AM SECONDARY Benign neoplasm of rectum [facility] Feb 20, 2024 10:36 AM SECONDARY Benign neoplasm of transverse colon [facility] Feb 20, 2024 10:36 AM SECONDARY Dvrtclos of lg int w/o perforation or abscess w/o bleeding [facility] Feb 20, 2024 10:36 AM SECONDARY Other fecal abnormalities [facility] Plan of Treatment: Future Appointments (+ 6 months) and Future Tests (+/- 45 days) The Plan of Treatment section includes future care activities for the patient from all [facility]. This section includes future appointments and future orders which are active, pending or scheduled. Future Appointments This section includes appointments that were scheduled to occur 6 months from the date of the Encounter, up to a maximum of 20 appointments. The data comes from all [facility]. Appointment Date/Time Appointment Type Appointme nt Facility Name Feb 26, 2024 10:00 AM AMBULATORY - NONE [facility] Mar 29, 2024 01:00 PM AMBULATORY - SURGERY [facility] Mar 29, 2024 02:00 PM AMBULATORY - SURGERY [facility] Mar 30, 2024 08:30 AM AMBULATORY - REHAB [facility] Apr 01, 2024 10:00 AM AMBULATORY - NONE [facility] Apr 12, 2024 10:15 AM AMBULATORY - SURGERY [facility] Apr 13, 2024 01:15 PM AMBULATORY - MEDICINE [facility] Apr 13, 2024 01:30 PM AMBULATORY - MEDICINE [facility] Apr 13, 2024 02:00 PM AMBULATORY - MEDICINE [facility] Apr 15, 2024 01:45 PM AMBULATORY - SURGERY [facility] May 06, 2024 04:00 PM AMBULATORY - MEDICINE [facility] May 12, 2024 02:00 PM AMBULATORY - MEDICINE [facility] May 12, 2024 03:00 PM AMBULATORY - MEDICINE [facility] Active, Pending, and Scheduled Orders This section includes a listing of several types of active, pending, and scheduled orders, including clinic medications orders, diagnostic test orders, procedure orders and consult orders; where the start date of the order is 45 days before the date of the Encounter or 45 days after the date of theEncounter. The data comes from all [place] treatment facilities. 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 Ordering Provider: FLAQUITO VIRGEN Report Released Date/Time: Feb 04, 2024 02:58 PM Reporting Lab: [facility] [id number] Performing Lab: [facility] [address] CREATININE 1.4 mg/dL H 0.7-1.2 UREA NITROGEN 21 mg/dL 8-26 GLUCOSE 135 mg/dL H 70-100 SODIUM 136 mmol/L 136-145 POTASSIUM 4.0 mmol/L 3.5-5.1 CHLORIDE 100 mmol/L 98-107 CO2 25 mmol/L 22-29 CALCIUM 9.3 mg/dL 8.4-10.2 MAGNESIUM 2.2 mg/dL 1.6-2.6 ANION GAP 11 mmol/L 5-15 .CREAT EGFR(CKD-EPI ) 53 L >60 Feb 04, 2024 01:40 PM [facility] BNP Specimen Type: PLASMA No comment entered. Ordering Provider: FLAQUITO VIRGEN Report Released Date/Time: Aug 13, 2023 11:38 AM Reporting Lab: [facility] [id number] Performing Lab: [facility] [address] BNP 23 pg/mL <99 Feb 04, 2024 01:40 PM [facility] BASIC METABOLIC PANEL+MG Specimen Type: PLASMA No comment entered. Ordering Provider: FLAQUITO VIRGEN Report Released Date/Time: Aug 13, 2023 11:38 AM Reporting Lab: [facility] [id number] Performing Lab: [facility] [address] CREATININE 1.2 mg/dL 0.7-1.2 UREA NITROGEN 18 [...] 19, 2020 12:07 PM VA-TOBACCO FORMER USER [facility] Tobacco Use History This section includes a history of the smoking, or tobacco-related health factors, that were collected on or before the date of the Encounter. The data comes from the [place] facility where the Encounter took place. Date/Time Smoking Status/Tobacco Use Comment F acility Dec 19, 2020 12:07 PM VA-TOBACCO QUIT 5 TO < 15 YRS [facility] Aug 02, 2015 09:49 AM CURRENT TOBACCO USER [facility] Jun 06, 2014 08:51 AM CURRENT TOBACCO USER [facility] May 04, 2013 09:29 AM CURRENT TOBACCO USER [facility] Apr 24, 2012 07:40 AM CURRENT TOBACCO USER [facility] Advance Directives: All historical and current Section Date Range: From patient's date of to the date document was created. This section includes ALL of a patient's completed or amended [place] Advance and Rescinded Directives. The entries below indicate that a directive exists for the patient, but an actual copy is not included with this document. The data comes from all [facility]. Date Advance Directives Provider Source Jan 02, 2023 STATE-AUTHORIZED PORTABLE ORDERS [facility] Pathology Reports: +/- 30 days of [...] the Encounter. The data comes from all [place] treatment facilities. Date/Time Pathology Report Provider Source Feb 23, 2024 12:25 PM LR SURGICAL PATHOL OGY REPORT: LOCAL TITLE: LR SURGICAL PATHOLOGY REPORT STANDARD TITLE: PATHOLOGY REPORT DATE OF NOTE: FEB 23, 2024@12:25:01 ENTRY DATE: FEB 23, 2024@12:25:01 AUTHOR: TANNA SMITH EXP COSIGNER: URGENCY: STATUS: COMPLETED $APHDR Reporting Lab: [facility] [CLIA# [id number]] [place] [address] - - - - - - - [...] - - - - BRIEF CLINICAL HISTORY: 07-26. Polyp Procedure: 07-26. colonoscopy - - - [...] - - - - POSTOPERATIVE DIAGNOSIS: Surgeon/physician: RBI HEALY MD =-=-=-=-=-=-=-=-=-=-=-=-=-= -=-=-=-=-=-=-=-=-=-=-=-=-=- =-=-=-=-=-=-=-=-=-=-=-=-= - - [...] Performing Laboratory: Surgical Pathology Report Performed By: [facility] [CLIA# [id number]] [place] [address] $FTR - - - - - - [...] - - GILDA CARRILLO STANDARD FORM 515 ID:[id number] SEX:M :1950 AGE: 73 LOC:12599 PCP: Gelacio Michel /mateo/ TANNA SMITH MD STAFF PATHOLOGIST Signed: 02/23/2024 12:25 TANNA SMITH [facility] Encounter Notes: All associated encounter notes This section contains the clinical notes associated to the Encounter. Date/Time Encounter Note(s) Provider Source Feb 23, 2024 02:13 PM LETTERS: LOCAL TITLE: FOLLOW UP RESULTS LETTER STANDARD TITLE: LETTERS DATE OF NOTE: FEB 23, 2024@14:13 ENTRY DATE: FEB 23, 2024@14:13:28 AUTHOR: BRI HEALY COSIGNER: URGENCY: STATUS: COMPLETED [facility] [address] [place] [address] Feb GILDARAQUEL TAYLOR CARRILLO [address] [place] [id number] Dear [place]: I am writing to inform you of the test results performed Feb for the following: Colonoscopy Results of microscopic examination: Polyp - Adenoma x 6 Polyp - Hyperplastic DIAGNOSIS: 1. Colon, cecum, first pass without [...] endoscopic polypectomy-- - Fragments of hyperplastic polyp Explanation of pathology results: An adenoma is a type of polyp that if left in the colon, could over a period of years, grow larger and/or even turn into a cancer, although most do not. A hyperplastic polyp is a benign polyp that does not require any special follow up. After reviewing your results I recommend you complete a follow-up colonoscopy in 3 years if in good overall health at that time. If you have any questions, the GI department can be called between the hours of 7:30 a.m. and 3:30 p.m., Friday - Friday. The GI department can be reached at or toll free at [phone]. Sincerely, BRI HEALY MD GASTROENTEROLOGY STAFF PHYSICIAN BRI HEALY [facility] Feb 19, 2024 10:09 PM NURSING NOTE: LOCAL TITLE: [facility] NSG IV INSERTION AND MAINTENANCE STANDARD TITLE: NURSING NOTE DATE OF NOTE: FEB 19, 2024@22:09 ENTRY DATE: FEB 19, 2024@22:09:15 AUTHOR: CAM GEORGE COSIGNER: URGENCY: STATUS: COMPLETED Version 2.2 Charting in accordance with [place] APPROVED SHISHMAREF IRA STANDARD ([facility]) ACUTE INPATIENT/REHABILITATION NURSING ADMISSION SCREENING, ASSESSMENT, AND STANDARDS OF CARE == IV Line Insertion and Maintenance == == Peripheral IV == Line #1: Line #2: Line #3: Insertion: Date/Time:1434 Inserted by (name): Cam George LPN Insertion Aid: Ultrasound guided Location: Right, Forearm Gauge: 20G 1.25 Assessment: Dressing Condition: Clean, dry, intact Site Condition: No redness, swelling, pain Line Status: Patent/infusing Capped Flushed Positive blood return /es/ CAM GEORGE Licensed Practical Nurse Signed: 02/19/2024 22:10 CAM GEORGE [facility] Feb 19, 2024 02:31 PM GASTROENTEROLOGY PREPROCEDURE NOTE: LOCAL TITLE: GI PRE-PROCEDURE NOTE STANDARD TITLE: GASTROENTEROLOGY PREPROCEDURE NOTE DATE OF NOTE: FEB 19, 2024@14:31 ENTRY DATE: FEB 19, 2024@14:31:15 AUTHOR: ÓSCAR URIAS EXP COSIGNER: URGENCY: STATUS: COMPLETED Gastroenterology Pre-procedure Assessment: Procedure planned: Colonoscopy Pre-Op Diagnosis or Indication for Procedure: Positive FOBT Problem list Active problems - Computerized Problem List is the source for the followin. Hypertension (SNOMED CT 20598285) 2. Tachycardia - EKG 04/24/[address] no acute ST or T wave changes 3. Chronic back pain (SNOMED CT 754796915) - s/p laminectomy L2-4 00 - disability parking permit application completed 03/10/18 with exp date 03/2023 4. Other and unspecified alcohol dependence, unspecified drinking behavior 5. Tobacco use (SNOMED CT 602921807) - quit '08 >25yr use 6. SCREEN - c scope - AAA due 65-75 - DEXA due >70 7. 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 SURGERY Hx - laminectomy L2-4 00 - tonsilectomy - adenoidectomy - R tympanoplasty '78 9. LUNG LESION - incidental on c-xray 04/21/12 ER @[place] - CT chest 05/01/12 @[place] - [place] chest 05/25/12 @[place] lung nodules, new effusion, rib frx - [...] 12. Solitary nodule of lung (SNOMED CT 190807131) 13. Chronic obstructive lung disease - PFT done 08/28/15 @[facility] 14. Degenerative joint disease - CT 06/08/2016; bilateral hips mod/severe 15. Benign localized hyperplasia of prostate 16. Arthritis of right hip 17. Lumbar spondylosis 18. Bilateral foot pain 19. Psoriasis 20. Venous stasis edema of bilateral lower limbs 21. Lipodermatosclerosis 22. Diabetes Mellitus Type 2 ([facility] [id number]) 23. Diastolic dysfunction 24. Paroxysmal atrial fibrillation 25. Long-term current use of anticoagulant 26. Persistent atrial fibrillation 27. Exposure to potentially hazardous substance ([facility] [id number]) - Entered through [facility] Documentation Initiative 28. Drug monitoring done Active Outpatient Medications (including Supplies): Active Outpatient [...] PREVENT BLOOD CLOTS 6) BRIEF,TRANQUILITY AUGUSTIN OVERNITE XXL#6368 USE BRIEF ACTIVE DIRECTED NEEDED 7) CARBOXYMETHYLCELLULOSE NA 0.5% OPH SOLN INSTILL 1 ACTIVE DROP IN BOTH EYES FOUR TIMES A DAY FOR DRY EYES 8) CLEANSING CLOTH ATTENDS PKT USE 1 WASHCLOTH TOPICALLY ACTIVE DIRECTED 9) DOFETILIDE 250MCG CAP TAKE ONE CAPSULE BY MOUTH TWICE ACTIVE (S) A DAY FOR ATRIAL FIBRILLATION 10) DRESSING,MEPILEX BORDER HEEL 8.7INX9.1IN APPLY 1 ACTIVE DRESSING TOPICALLY THREE TIMES WEEKLY 11) EMPAGLIFLOZIN 25MG TAB TAKE ONE-HALF TABLET BY MOUTH ACTIVE (S) EVERY MORNING FOR HEART FAILURE 12) FLUTICASONE PROP 50MCG 120D NASAL INHL SPRAY 2 SPRAYS ACTIVE IN EACH NOSTRIL EVERY DAY FOR NASAL DRIP 13) FUROSEMIDE 40MG TAB TAKE TWO TABLETS BY MOUTH EVERY ACTIVE MORNING AND TAKE ONE TABLET EVERY EVENING FOR EXCESS FLUID 14) GABAPENTIN 400MG CAP TAKE ONE CAPSULE BY MOUTH FOUR ACTIVE TIMES A DAY FOR PAIN AND NUMBNESS 15) GUAIFENESIN 200MG TAB TAKE TWO TABLETS BY MOUTH THREE ACTIVE TIMES A DAY FOR COPD/COUGH/MUCUS 16) KERLIX 4.5IN STERILE USE 1 BANDAGE TOPICALLY ACTIVE DIRECTED 17) LIDOCAINE 5% PATCH APPLY 3 PATCHES TOPICALLY EVERY ACTIVE DAY FOR PAIN. WEAR FOR ONLY 12 HOURS THEN REMOVE FOR 12 HOURS. ONE PATCH FOR EACH HIP AND ONE PATCH FOR LOW BACK 18) LOSARTAN 50MG TAB TAKE ONE TABLET BY MOUTH EVERY ACTIVE MORNING FOR HEART FAILURE 19) LUBRICATING (PF) OPH OINT APPLY A SMALL AMOUNT TO ACTIVE BOTH EYES AT BEDTIME FOR DRY EYES 20) NYSTATIN 927639 UNT/GM CREAM APPLY THIN LAYER ACTIVE TOPICALLY TWICE A DAY FUNGAL INFECTION EXTERNAL USE ONLY APPLY TO PANNUS 21) POLYETHYLENE GLYCOL 3350 ORAL PWDR TAKE 17 GRAMS BY ACTIVE MOUTH EVERY DAY NEEDED FOR CONSTIPATION 22) POTASSIUM CL 20MEQ SA TAB (DISPERSIBLE) TAKE TWO ACTIVE TABLETS BY MOUTH TWICE A DAY FOR POTASSIUM SUPPLEMENT 23) SEMAGLUTIDE 2MG/0.75ML INJ PEN 3ML INJECT 2MG UNDER ACTIVE THE SKIN EVERY WEEK FOR DIABETES 24) SPIRONOLACTONE 25MG TAB TAKE ONE TABLET BY MOUTH ACTIVE EVERY DAY FOR HEART FAILURE 25) TAZAROTENE 0.1% TOP CREAM APPLY THIN LAYER TOPICALLY ACTIVE AT BEDTIME TO THE FEET WITH THE 40% UREA CREAM, UNDER OCCLUSION DIRECTED 26) TRAZODONE HCL 50MG TAB TAKE ONE TABLET BY MOUTH AT ACTIVE BEDTIME FOR SLEEP 27) TRIAMCINOLONE ACETONIDE 0.1% OINT APPLY THIN LAYER ACTIVE TOPICALLY TWICE A DAY AVOID FACE,GROIN & ARMPITS *FOR EXTERNAL USE ONLY APPLY TO INTACT SKIN ON LOWER LEGS AFTER DILUTE VINEGAR OR VASHE SOAKS. WRAP WITH KERLIX. 28) UNDERPAD,BED 23IN X 36IN PLASTIC BACK USE CHUX ACTIVE DIRECTED 29) VANICREAM TOP CREAM APPLY THIN LAYER TOPICALLY EVERY ACTIVE DAY IDEALLY WITHIN 3 MINUTES AFTER BATH OR SHOWER. TO ALL AREAS OF SKIN FOR MOISTURIZER FOR DRY SKIN 30) ZINC OXIDE 20% OINT APPLY SMALL AMOUNT TOPICALLY ACTIVE THREE TIMES A WEEK NEEDED FOR WOUND PREVENTION Allergies: Patient has answered NKA Mallampati Score: 3: (Soft and hard palate and base of the uvula are visible) Airway: Within normal limits Exam: Heart and lungs within normal limits Lab PT 15.1 H (07/07/23) INR 1.3 H (07/07/23) HCT: 48.1 (07/07/23) 45.8 (01/06/24) HGB: 16.4 (07/07/23) 15.3 (01/06/24) IPF: 2.4 (12/27/20) 3.8 (10/28/22) MCH: 32.3 (07/07/23) 31.8 (01/06/24) MCHC: 34.1 (07/07/23) 33.4 (01/06/24) MCV: 94.7 (07/07/23) 95.2 (01/06/24) MPV: 10.0 (07/07/23) 9.5 (01/06/24) PLT: 244 (07/07/23) 290 (01/06/24) RBC: 5.08 (07/07/23) 4.81 (01/06/24) RDW: 12.7 (07/07/23) 13.2 (01/06/24) WBC: 9.78 (07/07/23) 11.27 (01/06/24) Other Lab tests: [place] Society [employer] Anesthesiologists (ASA) Classification: III SPN - Selected Prog Notes 07/07/2023 14:39 Local Title: LIFE-SUSTAINING TREATMENT Standard Title: LIFE-SUSTAINING TREATMENT PLAN LIFE-SUSTAINING TREATMENT (LST) DECISION-MAKING CAPACITY TO MAKE [...] OF SUPERVISING PRACTITIONER No Attending/supervising practitioner required. -------- Time spent discussing and documenting this care planning activity. Up to 30 minutes Signed by: /mateo/ ASHLEY VELARDE APRN NURSE PRACTITIONER 07/07/2023 14:41 Digital Pager: [phone] Receipt Acknowledged by: /mateo/ GEOVANNA DUMAS DNP, APRN, ARDMS 07/08/2023 12:38 Sedation Plan: Moderate sedation I have reviewed the patient's pre-procedure baseline level of consciousness, current vital signs, time and nature of last oral intake, and any previous adverse experiences with sedation as documented in the [facility] note. The procedure report can be viewed in the Reports tab-->procedures or in [facility]. I will be conducting or supervising the procedure, although a different provider obtained consent. Patient informed and agrees to proceed. I will be conducting or supervising the procedure, although a different provider obtained consent. Patient informed and agrees to proceed. /mateo/ ÓSCAR URIAS GASTROENTEROLOGY FELLOW Signed: 02/19/2024 14:37 ÓSCAR URIAS [facility]
--- OUTSIDE RECORDS SUMMARY | 2024-03-25 10:34 | XMS_ITS | Encounter Summary ---
Author Name [facility] [place] Address [address] [place] [address] Care Team Providers Care Neuro Psych Sales Specialist Name Role Phone GELACIO MICHEL Primary Care [...] PART A Jul 21, 2014 PART A [id number] [phone] Miguelito CARRILLO PATIENT Selected Encounter This section includes the information on record at [place] for the Encounter. Date/Time Encounter Type Encounter Description Reason Pro vider Source Feb 20, 2024 10:48 AM Outpatient Encounter PRIMARY CARE/MEDICINE IHE Encounter Template Text not used by [place] Plan of Treatment: Future Appointments (+ 6 months) and Future Tests (+/- 45 days) The Plan of Treatment section includes future care activities for the patient from all [place] treatmentfacilities. This section includes future appointments and future orders which are active, pending or scheduled. Future Appointments This section includes appointments that were scheduled to occur 6 months from the date of the Encounter, up to a maximum of 20 appointments. The data comes from all [place] treatment facilities. Appointment Date/Time Appointment Type Appointme nt Facility Name Feb 26, 2024 10:00 AM AMBULATORY - NONE [facility] Mar 29, 2024 01:00 PM AMBULATORY - SURGERY [facility] Mar 29, 2024 02:00 PM AMBULATORY - SURGERY [facility] Mar 30, 2024 08:30 AM AMBULATORY - REHAB MEDICIN E [facility] Apr 01, 2024 10:00 AM AMBULATORY - NONE [facility] Apr 12, 2024 10:15 AM AMBULATORY - SURGERY [facility] Apr 13, 2024 01:15 PM AMBULATORY - MEDICINE [facility] Apr 13, 2024 01:30 PM AMBULATORY - MEDICINE [facility] Apr 13, 2024 02:00 PM AMBULATORY - MEDICINE [facility] Apr 15, 2024 01:45 PM AMBULATORY - SURGERY [facility] May 06, 2024 04:00 PM AMBULATORY - MEDICINE [facility] May 12, 2024 02:00 PM AMBULATORY - MEDICINE [facility] May 12, 2024 03:00 PM [facility] [...] of theEncounter. The data comes from all [facility]. Test Date/Time Test Type Test Details Facility Name Jan 06, 2024 12:00 AM Laboratory - Chemi stry Order BNP PLASMA SP ONCE [facility] Feb 27, 2024 12:50 PM Consult Order OT OCCUPAT IONAL THERAPY OUTPT EQUIPMENT Cons Beauty Sales Consultant's Choice [facility] Lab Results: +/- 30 days of [...] Range Comment Feb 12, 2024 12:12 PM [facility] BASIC METABOLIC PANEL+MG Specimen Type: PLASMA No comment entered. Ordering Provider: FLAQUITO VIRGEN Report Released Date/Time: Feb 04, 2024 02:58 PM Reporting Lab: [facility] [id number] Performing Lab: [facility] [id number] CREATININE 1.4 mg/dL H 0.7-1.2 UREA NITROGEN 21 mg/dL 8-26 GLUCOSE 135 mg/dL H 70-100 SODIUM 136 mmol/L 136-145 POTASSIUM 4.0 mmol/L 3.5-5.1 CHLORIDE 100 mmol/L 98-107 CO2 25 mmol/L 22-29 CALCIUM 9.3 mg/dL 8.4-10.2 MAGNESIUM 2.2 mg/dL 1.6-2.6 ANION GAP 11 mmol/L 5-15 .CREAT EGFR(CKD-EPI ) 53 L >60 Feb 04, 2024 01:40 PM [facility] BNP Specimen Type: PLASMA No comment entered. Ordering Provider: FLAQUITO VIRGEN Report Released Date/Time: Aug 13, 2023 11:38 AM Reporting Lab: [facility] [id number] Performing Lab: [facility] [id number] BNP 23 pg/mL <99 Feb 04, 2024 01:40 PM [facility] BASIC METABOLIC PANEL+MG Specimen Type: PLASMA No comment entered. Ordering Provider: FLAQUITO VIRGEN Report Released Date/Time: Aug 13, 2023 11:38 AM Reporting Lab: [facility] [phone] Performing Lab: [facility] [address] CREATININE 1.2 mg/dL 0.7-1.2 UREA NITROGEN 18 [...] 19, 2020 12:07 PM VA-TOBACCO FORMER USER [facility] Tobacco Use History This section includes a history of the smoking, or tobacco-related health factors, that were collected on or before the date of the Encounter. The data comes from the [place] facility where the Encounter took place. Date/Time Smoking Status/Tobacco Use Comment F acility Dec 19, 2020 12:07 PM VA-TOBACCO QUIT 5 TO < 15 YRS [facility] Aug 02, 2015 09:49 AM CURRENT TOBACCO USER [facility] Jun 06, 2014 08:51 AM CURRENT TOBACCO USER [facility] May 04, 2013 09:29 AM CURRENT TOBACCO USER [facility] Apr 24, 2012 07:40 AM CURRENT TOBACCO USER [facility] Advance Directives: All historical and current Section Date Range: From patient's date of to the date document was created. This section includes ALL of a patient's completed or amended [place] Advance and Rescinded Directives. The entries below indicate that a directive exists for the patient, but an actual copy is not included with this document. The data comes from all [facility]. Date Advance Directives Provider Source Jan 02, 2023 STATE-AUTHORIZED PORTABLE ORDERS [facility] Pathology Reports: +/- 30 days of [...] the Encounter. The data comes from all [place] treatment facilities. Date/Time Pathology Report Provider Source Feb 23, 2024 12:25 PM LR SURGICAL PATHOL DANI REPORT: LOCAL TITLE: LR SURGICAL PATHOLOGY REPORT STANDARD TITLE: PATHOLOGY REPORT DATE OF NOTE: FEB 23, 2024@12:25:01 ENTRY DATE: FEB 23, 2024@12:25:01 AUTHOR: TANNA SMITH EXP COSIGNER: URGENCY: STATUS: COMPLETED $APHDR Reporting Lab: [facility] [CLIA# [id number]] [place] [address] - - - - - - - [...] - - - PATHOLOGY REPORT Accession No. [id number] - - - - - [...] Performing Laboratory: Surgical Pathology Report Performed By: [facility] [CLIA# [id number]] [facility] [place] [address] $FTR - - - - - - - - - - - - - - - - - - - - - - - - - - - - - - - - - - - - - - - - (End of report) TANNA SMITH MD [facility] Date Feb 23, 2024 - - - - - - - - - - - - - - - - - - - - - - - - - - - - - - - - - - - - - - - - GILDA CARRILLO STANDARD FORM 515 ID:[id number] SEX:M :1950 AGE: 73 LOC:[id number] PCP: Gelacio Michel /mateo/ TANNA SMITH MD STAFF PATHOLOGIST Signed: 02/23/2024 12:25 TANNA SMITH [facility] Encounter Notes: All associated encounter notes This section contains the clinical notes associated to the Encounter. Date/Time Encounter Note(s) Provider Source Feb 20, 2024 10:48 AM REPORT OF CONTACT: LOCAL TITLE: PATIENT CONTACT NOTE STANDARD TITLE: REPORT OF CONTACT DATE OF NOTE: FEB 20, 2024@10:48 ENTRY DATE: FEB 20, 2024@10:48:46 AUTHOR: FLEX LOVETT EXP COSIGNER: URGENCY: STATUS: COMPLETED PATIENT CONTACT NOTE Has ADDENDA Patient contact Name of Lawrence: GILDA CARRILLO Name/Relationship of Contact if other than Lawrence: Date & Time of Contact: Feb@10:48 Type of Contact: Telephone Reason for Contact: Lawrence left a VM in regards to speaking to his care team about his nebulizer /es/ [facility] Signed: 02/20/2024 10:49 Receipt Acknowledged By: 02/20/2024 14:46 /mateo/ NIRU SUAZO RN REGISTERED NURSE 02/20/2024 ADDENDUM STATUS: COMPLETED Spoke with . reports when he went to plug in his nebulizer machine today it started smoking. He is requesting a new nebulizer machine be mailed to him SANJAY. Lawrence does have inhaler medication available until the new nebulizer arrives. Prosthetics consult entered. /mateo/ NIRU SUAZO RN REGISTERED NURSE Signed: 02/20/2024 15:24 FLEX [facility]
--- OUTSIDE RECORDS SUMMARY | 2024-03-25 10:35 | XMS_ITS | Encounter Summary ---
Author Name [facility] [place] Address [address] [place] [address] Care Team Providers Care Chenille Machine Operator Name Role Phone ALIYA MICHEL Primary Care [...] PART A Jul 21, 2014 PART A [id number] [phone] Miguelito CARRILLO PATIENT Selected Encounter This section includes the information on record at [place] for the Encounter. Date/Time Encounter Type Encounter Description Reason Pro vider Source Feb 23, 2024 12:00 AM Outpatient Encounter EVENT (HISTORICAL) IHE Encounter Template [...] 26, 2024 10:00 AM AMBULATORY - NONE [facility] Mar 29, 2024 01:00 PM AMBULATORY - SURGERY [facility] Mar 29, 2024 02:00 PM AMBULATORY - SURGERY [facility] Mar 30, 2024 08:30 AM AMBULATORY - REHAB MEDICIN E [facility] Apr 01, 2024 10:00 AM AMBULATORY - NONE [facility] Apr 12, 2024 10:15 AM AMBULATORY - SURGERY [facility] Apr 13, 2024 01:15 PM AMBULATORY - MEDICINE [facility] Apr 13, 2024 01:30 PM AMBULATORY - MEDICINE [facility] Apr 13, 2024 02:00 PM AMBULATORY - MEDICINE [facility] Apr 15, 2024 01:45 PM AMBULATORY - SURGERY [facility] May 06, 2024 04:00 PM AMBULATORY - MEDICINE [facility] May 12, 2024 02:00 PM AMBULATORY - MEDICINE [facility] May 12, 2024 03:00 PM AMBULATORY - MEDICINE [facility] Active, Pending, and Scheduled Orders This section includes a listing of several types of active, pending, and scheduled orders, including clinic medications orders, diagnostic test orders, procedure orders and consult orders; where the start date of the order is 45 days before the date of the Encounter or 45 days after the date of theEncounter. The data comes from all [facility]. Test Date/Time Test Type Test Details Facility Name Feb 27, 2024 12:50 PM Consult Order OT OCCUPAT IONAL THERAPY OUTPT EQUIPMENT Cons Rehabilitation Services Manager's Choice [facility] Apr 06, 2024 12:00 AM Laboratory - Chemi stry Order BASIC METABOLIC PANEL+MG PLASMA SP ONCE [facility] Lab Results: +/- 30 days of the encounter This section includes the Chemistry and Hematology Lab Results on record with [place] for the patient. Radiology Reports and Pathology Reports are provided separately, in subsequent sections. Lab Results This section contains the Chemistry/Hematology Results that were resulted 30 days before or 30 daysafter the date of the Encounter. Date/Time Source Result Type Result - Unit Interpretation Reference Range Comment Feb 12, 2024 12:12 PM [facility] BASIC METABOLIC PANEL+MG Specimen Type: PLASMA No comment entered. Ordering Provider: FLAQUITO VIRGEN Report Released Date/Time: Feb 04, 2024 02:58 PM Reporting Lab: [facility] [id number] Performing Lab: [facility] [id number] CREATININE 1.4 mg/dL H 0.7-1.2 UREA NITROGEN 21 mg/dL 8-26 GLUCOSE 135 mg/dL H 70-100 SODIUM 136 mmol/L 136-145 POTASSIUM 4.0 mmol/L 3.5-5.1 CHLORIDE 100 mmol/L 98-107 CO2 25 mmol/L 22-29 CALCIUM 9.3 mg/dL 8.4-10.2 MAGNESIUM 2.2 mg/dL 1.6-2.6 ANION GAP 11 mmol/L 5-15 .CREAT EGFR(CKD-EPI ) 53 L >60 Feb 04, 2024 01:40 PM [facility] BNP Specimen Type: PLASMA No comment entered. Ordering Provider: FLAQUITO VIRGEN Report Released Date/Time: Aug 13, 2023 11:38 AM Reporting Lab: [facility] [phone] Performing Lab: [facility] [id number] BNP 23 pg/mL <99 Feb 04, 2024 01:40 PM [facility] BASIC METABOLIC PANEL+MG Specimen Type: PLASMA No comment entered. Ordering Provider: FLAQUITO VIRGEN Report Released Date/Time: Aug 13, 2023 11:38 AM Reporting Lab: [facility] [phone] Performing Lab: [facility] [address] CREATININE 1.2 mg/dL 0.7-1.2 UREA NITROGEN 18 [...] 19, 2020 12:07 PM VA-TOBACCO FORMER USER [facility] Tobacco Use History This section includes a history of the smoking, or tobacco-related health factors, that were collected on or before the date of the Encounter. The data comes from the [place] facility where the Encounter took place. Date/Time Smoking Status/Tobacco Use Comment F acility Dec 19, 2020 12:07 PM VA-TOBACCO QUIT 5 TO < 15 YRS [facility] Aug 02, 2015 09:49 AM CURRENT TOBACCO USER [facility] Jun 06, 2014 08:51 AM CURRENT TOBACCO USER [facility] May 04, 2013 09:29 AM CURRENT TOBACCO USER [facility] Apr 24, 2012 07:40 AM CURRENT TOBACCO USER [facility] Advance Directives: All historical and current Section Date Range: From patient's date of to the date document was created. This section includes ALL of a patient's completed or amended [place] Advance and Rescinded Directives. The entries below indicate that a directive exists for the patient, but an actual copy is not included with this document. The data comes from all [facility]. Date Advance Directives Provider Source Jan 02, 2023 STATE-AUTHORIZED PORTABLE ORDERS [facility] Pathology Reports: +/- 30 days of [...] COSIGNER: URGENCY: STATUS: COMPLETED $APHDR Reporting Lab: [facility] [CLIA# [id number]] [place] [address] - - - - - - - [...] - - - PATHOLOGY REPORT Accession No. [id number] - - - - - [...] Performing Laboratory: Surgical Pathology Report Performed By: [facility] [CLIA# [id number]] [place] [address] $FTR - - - - - - - - - - - - - - - - - - - - - - - - - - - - - - - - - - - - - - - - (End of report) TANNA SMITH MD [facility] Date Feb 23, 2024 - - - - - - - - - - - - - - - - - - - - - - - - - - - - - - - - - - - - - - - - GILDA CARRILLO STANDARD FORM 515 ID:[id number] SEX:M :1950 AGE: 73 LOC:[id number] PCP: Aliya Michel /mateo/ TANNA SMITH MD STAFF PATHOLOGIST Signed: 02/23/2024 12:25 TANNA SMITH [facility]
--- OUTSIDE RECORDS SUMMARY | 2024-03-25 10:35 | XMS_ITS | Encounter Summary ---
Author Name [facility] [place] Address [address] [place] [address] Care Team Providers Care Gang Bore Operator Name Role Phone ALIYA MICHEL Primary [...] PART A Jul 21, 2014 PART A [id number] [phone] Miguelito CARRILLO PATIENT Selected Encounter This section includes the information on record at [place] for the Encounter. Date/Time Encounter Type Encounter Description Reason Provider Source Feb 23, 2024 12:25 PM Outpatient Encounter EVENT (HISTORICAL) TANNA SMITH [facility] Encounter Template Text not used by [place] [...] 26, 2024 10:00 AM AMBULATORY - NONE [facility] Mar 29, 2024 01:00 PM AMBULATORY - SURGERY [facility] Mar 29, 2024 02:00 PM AMBULATORY - SURGERY [facility] Mar 30, 2024 08:30 AM AMBULATORY - REHAB MEDICIN E [facility] Apr 01, 2024 10:00 AM AMBULATORY - NONE [facility] Apr 12, 2024 10:15 AM AMBULATORY - SURGERY [facility] Apr 13, 2024 01:15 PM AMBULATORY - MEDICINE [facility] Apr 13, 2024 01:30 PM AMBULATORY - MEDICINE [facility] Apr 13, 2024 02:00 PM AMBULATORY - MEDICINE [facility] Apr 15, 2024 01:45 PM AMBULATORY - SURGERY [facility] May 06, 2024 04:00 PM AMBULATORY - MEDICINE [facility] May 12, 2024 02:00 PM AMBULATORY - MEDICINE [facility] May 12, 2024 03:00 PM AMBULATORY - MEDICINE [facility] Active, Pending, and Scheduled Orders This section includes a listing of several types of active, pending, and scheduled orders, including clinic medications orders, diagnostic test orders, procedure orders and consult orders; where the start date of the order is 45 days before the date of the Encounter or 45 days after the date of theEncounter. The data comes from all [facility]. Test Date/Time Test Type Test Details Facility Name Feb 27, 2024 12:50 PM Consult Order OT OCCUPAT IONAL THERAPY OUTPT EQUIPMENT Cons Network Analyst's Choice [facility] [place] [facility] Apr 06, 2024 12:00 AM Laboratory - Chemi stry Order BASIC METABOLIC PANEL+MG PLASMA SP ONCE [facility] Lab Results: +/- 30 days of [...] Range Comment Feb 12, 2024 12:12 PM [facility] BASIC METABOLIC PANEL+MG Specimen Type: PLASMA No comment entered. Ordering Provider: FLAQUITO VIRGEN Report Released Date/Time: Feb 04, 2024 02:58 PM Reporting Lab: [facility] [id number] Performing Lab: [facility] [address] CREATININE 1.4 mg/dL H 0.7-1.2 UREA NITROGEN 21 mg/dL 8-26 GLUCOSE 135 mg/dL H 70-100 SODIUM 136 mmol/L 136-145 POTASSIUM 4.0 mmol/L 3.5-5.1 CHLORIDE 100 mmol/L 98-107 CO2 25 mmol/L 22-29 CALCIUM 9.3 mg/dL 8.4-10.2 MAGNESIUM 2.2 mg/dL 1.6-2.6 ANION GAP 11 mmol/L 5-15 .CREAT EGFR(CKD-EPI ) 53 L >60 Feb 04, 2024 01:40 PM [facility] BNP Specimen Type: PLASMA No comment entered. Ordering Provider: FLAQUITO VIRGEN Report Released Date/Time: Aug 13, 2023 11:38 AM Reporting Lab: [facility] [phone] Performing Lab: [facility] [address] BNP 23 pg/mL <99 Feb 04, 2024 01:40 PM [facility] BASIC METABOLIC PANEL+MG Specimen Type: PLASMA No comment entered. Ordering Provider: FLAQUITO VIRGEN Report Released Date/Time: Aug 13, 2023 11:38 AM Reporting Lab: [facility] [address] Performing Lab: [facility] [address] CREATININE 1.2 mg/dL 0.7-1.2 UREA NITROGEN 18 [...] VA-TOBACCO QUIT 5 TO < 15 YRS [facility] Tobacco Use History This section includes a history of the smoking, or tobacco-related health factors, that were collected on or before the date of the Encounter. The data comes from the [place] facility where the Encounter took place. Date/Time Smoking Status/Tobacco Use Comment F acamelia Dec 19, 2020 12:07 PM VA-TOBACCO QUIT 5 TO < 15 YRS [facility] Aug 02, 2015 09:49 AM CURRENT TOBACCO USER [facility] Jun 06, 2014 08:51 AM CURRENT TOBACCO USER [facility] May 04, 2013 09:29 AM CURRENT TOBACCO USER [facility] Apr 24, 2012 07:40 AM CURRENT TOBACCO USER [facility] Advance Directives: All historical and current Section Date Range: From patient's date of to the date document was created. This section includes ALL of a patient's completed or amended [place] Advance and Rescinded Directives. The entries below indicate that a directive exists for the patient, but an actual copy is not included with this document. The data comes from all [facility]. Date Advance Directives Provider Source Jan 02, 2023 STATE-AUTHORIZED PORTABLE ORDERS [facility] Pathology Reports: +/- 30 days of [...] COSIGNER: URGENCY: STATUS: COMPLETED $APHDR Reporting Lab: [facility] [CLIA# [id number]] [place] [address] - - - - - - - [...] - - - PATHOLOGY REPORT Accession No. [id number] - - - - - [...] Performing Laboratory: Surgical Pathology Report Performed By: [facility] [CLIA# [id number]] [place] [address] $FTR - - - - - - - - - - - - - - - - - - - - - - - - - - - - - - - - - - - - - - - - (End of report) TANNA SMITH MD [facility] Date Feb 23, 2024 - - - - - - - - - - - - - - - - - - - - - - - - - - - - - - - - - - - - - - - - GILDA CARRILLO STANDARD FORM 515 ID:[id number] SEX:M :1950 AGE: 73 LOC:[phone] PCP: Aliya Michel /mateo/ TANNA SMITH MD STAFF PATHOLOGIST Signed: 02/23/2024 12:25 TANNA SMITH [facility] Encounter Notes: All associated encounter notes This section contains the clinical notes associated to the Encounter. Date/Time Encounter Note(s) Provider Source Feb 23, 2024 12:25 PM PATHOLOGY REPORT: LOCAL TITLE: LR SURGICAL PATHOLOGY REPORT STANDARD TITLE: PATHOLOGY REPORT DATE OF NOTE: FEB 23, 2024@12:25:01 ENTRY DATE: FEB 23, 2024@12:25:01 AUTHOR: TANNA SMITH EXP COSIGNER: URGENCY: STATUS: COMPLETED $APHDR Reporting Lab: [facility] [CLIA# [id number]] [place] [address] - - - - - - - [...] Performing Laboratory: Surgical Pathology Report Performed By: [facility] [CLIA# [id number]] [place] [address] $FTR - - - - - - [...] - - GILDA CARRILLO STANDARD FORM 515 ID:[id number] SEX:M :1950 AGE: 73 LOC:[id number] PCP: Aliya Michel /mateo/ TANNA SMITH MD STAFF PATHOLOGIST Signed: 02/23/2024 12:25 TANNA SMITH [facility]
--- OUTSIDE RECORDS SUMMARY | 2024-03-25 10:35 | XMS_ITS ---
[place] MED NUTRITION INDIV SUBSEQ [facility] Encounter Summary Created on: March 25, 2024 GILDA CARRILLO CLAUDIA : 1950 Sex: Male Author Name [facility] [place] Address [address] [place] [address] Care Team Providers Care Ship Runner Name Role Phone ALIYA MICHEL Primary Care Provider Sarah guadalupe Insurance [...] PART A Jul 21, 2014 PART A [id number] [phone] Miguelito CARRILLO PATIENT Selected Encounter This section includes the information on record at [place] for the Encounter. Date/Time Encounter Type Encounter Description Reason Provider Source Feb 26, 2024 10:00 AM MED NUTRITION INDIV SUBSEQ NUTRITION/DIETETI CS-INDIVIDUAL ICD-10-CM I50.9 Heart failure, unspecified BELINDA DUTTON Encounter Template Text not used by [place] Assessments - Encounter Diagnoses This section includes the primary and secondary diagnoses documented for the Encounter. Date/Time Primary/Secondary Diagnosis Diagnosis Name Provider Source Feb 26, 2024 10:27 AM PRIMARY Heart failure, unspecified [facility] Feb 26, 2024 10:27 AM SECONDARY Dietary counseling and surveillance BELINDA DUTTON Plan of Treatment: Future Appointments (+ 6 months) and Future Tests (+/- 45 days) The Plan of Treatment section includes future care activities for the [facility] This section includes future appointments and future orders which are active, pending or scheduled. Future Appointments This section includes appointments that were scheduled to occur 6 months from the date of the Encounter, up to a maximum of 20 appointments. The data comes from all [facility]. Appointment Date/Time Appointment Type Appointme nt Facility Name Mar 29, 2024 01:00 PM AMBULATORY - SURGERY [facility] Mar 29, 2024 02:00 PM AMBULATORY - SURGERY [facility] Mar 30, 2024 08:30 AM AMBULATORY - REHAB MEDICIN E [facility] Apr 01, 2024 10:00 AM AMBULATORY - NONE [facility] Apr 12, 2024 10:15 AM AMBULATORY - [...] of theEncounter. The data comes from all [facility]. Test Date/Time Test Type Test Details Facility Name Feb 27, 2024 12:50 PM Consult Order OT OCCUPAT IONAL THERAPY OUTPT EQUIPMENT Cons Video Games Mechanic's Choice [facility] NICHOL[facility] Apr 06, 2024 12:00 AM Laboratory - Chemi stry Order BASIC METABOLIC PANEL+MG PLASMA SP ONCE [facility] Lab Results: +/- 30 days of the [...] Range Comment Feb 12, 2024 12:12 PM [facility] BASIC METABOLIC PANEL+MG Specimen Type: PLASMA No comment entered. Ordering Provider: FLAQUITO VIRGEN Report Released Date/Time: Feb 04, 2024 02:58 PM Reporting Lab: [facility] [id number] Performing Lab: [facility] [id number] CREATININE 1.4 mg/dL H 0.7-1.2 UREA NITROGEN 21 mg/dL 8-26 GLUCOSE 135 mg/dL H 70-100 SODIUM 136 mmol/L 136-145 POTASSIUM 4.0 mmol/L 3.5-5.1 CHLORIDE 100 mmol/L 98-107 CO2 25 mmol/L 22-29 CALCIUM 9.3 mg/dL 8.4-10.2 MAGNESIUM 2.2 mg/dL 1.6-2.6 ANION GAP 11 mmol/L 5-15 .CREAT EGFR(CKD-EPI ) 53 L >60 Feb 04, 2024 01:40 PM [facility] BNP Specimen Type: PLASMA No comment entered. Ordering Provider: FLAQUITO VIRGEN Report Released Date/Time: Aug 13, 2023 11:38 AM Reporting Lab: [facility] [id number] Performing Lab: [facility] [id number] BNP 23 pg/mL <99 Feb 04, 2024 01:40 PM [facility] BASIC METABOLIC PANEL+MG Specimen Type: PLASMA No comment entered. Ordering Provider: FLAQUITO VIRGEN Report Released Date/Time: Aug 13, 2023 11:38 AM Reporting Lab: [facility] [id number] Performing Lab: [facility] [id number] CREATININE 1.2 mg/dL 0.7-1.2 UREA NITROGEN 18 [...] ity Nov 05, 2023 01:30 PM VA-TOBACCO QUIT 15 YRS OR MORE [facility] Tobacco Use History This section includes a history of the smoking, or tobacco-related health factors, that were collected on or before the date of the Encounter. The data comes from the [place] facility where the Encounter took place. Date/Time Smoking Status/Tobacco Use Comment F acility Nov 05, 2023 01:30 PM VA-TOBACCO QUIT 15 YRS OR MORE [facility] Oct 28, 2022 01:00 PM VA-TOBACCO FORMER USER [facility] Oct 28, 2022 01:00 PM VA-TOBACCO QUIT 5 TO < 15 YRS [facility] Feb 01, 2020 03:56 PM VA-TOBACCO FORMER USER [facility] Feb 01, 2020 03:56 PM VA-TOBACCO QUIT 5 TO < 15 YRS [facility] Jan 26, 2019 09:50 AM VA-TOBACCO FORMER USER [facility] Jan 26, 2019 09:50 AM VA-TOBACCO QUIT 1 TO < 5 YRS [facility] Feb 03, 2018 03:53 PM FORMER TOBACCO USE <1Y [facility] Jun 14, 2016 11:06 AM CURRENT TOBACCO USER [facility] Advance Directives: All historical and current Section Date Range: From patient's date of to the date document was created. This section includes ALL of a patient's completed or amended [place] Advance and Rescinded Directives. The entries below indicate that a directive exists for the patient, but an actual copy is not included with this document. The data comes from all [place] facilities. Date Advance Directives Provider Source Jan 02, 2023 STATE-AUTHORIZED PORTABLE ORDERS [facility] Pathology Reports: +/- 30 days [...] the Encounter. The data comes from all [place] treatment facilities. Date/Time Pathology Report Provider Source Feb 23, 2024 12:25 PM LR SURGICAL PATHOL OGY REPORT: LOCAL TITLE: LR SURGICAL PATHOLOGY REPORT STANDARD TITLE: PATHOLOGY REPORT DATE OF NOTE: FEB 23, 2024@12:25:01 ENTRY DATE: FEB 23, 2024@12:25:01 AUTHOR: TANNA SMITH EXP COSIGNER: URGENCY: STATUS: COMPLETED $APHDR Reporting Lab: [facility] [CLIA# [id number]] [place] [address] - - - - - - - [...] - - - - BRIEF CLINICAL HISTORY: -. Polyp Procedure: 07-26. colonoscopy - - - [...] Performing Laboratory: Surgical Pathology Report Performed By: [facility] [CLIA# [id number]] [place] [address] $FTR - - - - - - [...] - - GILDA CARRILLO STANDARD FORM 515 ID:[id number] SEX:M :1950 AGE: 73 LOC:[id number] PCP: Aliya Michel /mateo/ TANNA SMITH MD STAFF PATHOLOGIST Signed: 02/23/2024 12:25 TANNA SMITH [facility] Encounter Notes: All associated encounter notes This section contains the clinical notes associated to the Encounter. Date/Time Encounter Note(s) Provider Source Feb 26, 2024 12:15 PM NUTRITION RISK ASS ESSMENT SCREENING NOTE: LOCAL TITLE: NUTRITION OUTPT ASSESSMENT STANDARD TITLE: NUTRITION RISK ASSESSMENT SCREENING NOTE DATE OF NOTE: FEB 26, 2024@12:15 ENTRY DATE: FEB 26, 2024@12:16:01 AUTHOR: MIKE DUTTON COSIGNER: URGENCY: STATUS: COMPLETED SUBJECT: nutrition Visit Information: Delivery Method: Telephone Visit Type: Initial Visit Reason for visit: Nutrition consult 02/03: [place] is interested in meal delivery options ([employer], [employer] Wheels) to help with low sodium diet Time spent with : 30 mins ASSESSMENT: Interest is to sign up for delivered meals for lower sodium option. Declined low sodium education 10/27/23. PMH includes: HF Pertinent meds: FUROSEMIDE Meal Recall summary: 1-2 meals + 1 snack/day. 3 egg omelet B, D contains vegetable. Activity: Hx PT exercises. Scooter when out and about. Height: 76 in [193.0 cm] (07/02/2023 13:54) Weight: 349.9 lb [158.71 kg] (02/04/2024 14:27) BMI: 42.7 Cardiology 02/13/24: His weight is more stable now at 347 to 350 pounds. Malnutrition Assessment (Per AND/ASPEN Consensus Statement, 2012) Dietitian does not suspect malnutrition at this time, therefore, physical assessment not conducted DIAGNOSIS: New Problem: Excessive mineral intake Etiology: unable to prepare lower sodium meals Signs/Symptoms: requesting low sodium home delivered meals per cardiology INTERVENTION: Nutrition Prescription: 2000 mg sodium/day Manage composition of oral intake: meal delivery - Reviewed [employer] website together. Reviewed program for veterans. Unable to write number down - RD will mail handout - Will also send [employer] enrollment form. RD filled out the last 2 pages for healthcare provider prior to mailing - Provided my number for questions GOAL: receive 2 # for meal delivery services Handout: [facility] handout ([place] handout), [employer] enrollment form MONITORING & EVALUATION: NEW Number of meals estimated in 24 hours from Meal Delivery: >/= 1/day Follow up: 1 month f/u: meal delivery service for CHF /es/ MIKE DUTTON MS, RD, LD Clinical Dietitian Signed: 02/26/2024 12:41 MIKE DUTTON [facility]
--- OUTSIDE RECORDS SUMMARY | 2024-03-25 10:35 | XMS_ITS | Encounter Summary ---
Author Name [facility] [place] Organization [place] Address [address] [place] [id number] Care Team Providers Care Welder/Fitter Name Role Phone GELACIO MICHEL Primary Care [...] PART A Jul 21, 2014 PART A [id number] [phone] Miguelito CARRILLO PATIENT Selected Encounter This section includes the information on record at [place] for the Encounter. Date/Time Encounter Type Encounter Description Reason Provider Source Mar 15, 2024 02:48 PM Outpatient Encounter TELEPHONE/SURGER Y ICD-10-CM Z13.6 Encounter for screening for cardiovascular disorders JOYCE ROMANO E Encounter Template Text not used by [place] Assessments - Encounter Diagnoses This section includes the primary and secondary diagnoses documented for the Encounter. Date/Time Primary/Secondary Diagnosis Diagnosis Name Provider Source Mar 15, 2024 02:48 PM PRIMARY Encounter for screening for cardiovascular disorders JOYCE ROMANO [facility] Plan of Treatment: Future Appointments (+ 6 months) and Future Tests (+/- 45 days) The Plan of Treatment section includes future care activities for the patient from all [facility]. This section includes future appointments and future orders which are active, pending or scheduled. Future Appointments This section includes appointments that were scheduled to occur 6 months from the date of the Encounter, up to a maximum of 20 appointments. The data comes from all [facility]. Appointment Date/Time Appointment Type Appointme nt Facility Name Mar 29, 2024 01:00 PM AMBULATORY - SURGERY [facility] Mar 29, 2024 02:00 PM AMBULATORY - SURGERY [facility] Mar 30, 2024 08:30 AM AMBULATORY - REHAB MEDICIN E [facility] Apr 01, 2024 10:00 AM AMBULATORY - NONE [facility] Apr 12, 2024 10:15 AM AMBULATORY - SURGERY [facility] Apr 13, 2024 01:15 PM AMBULATORY - MEDICINE [facility] Apr 13, 2024 01:30 PM AMBULATORY MEDICINE [facility] Apr 13, 2024 02:00 PM AMBULATORY - MEDICINE [facility] Apr 15, 2024 01:45 PM AMBULATORY - SURGERY [facility] May 06, 2024 04:00 PM AMBULATORY [...] of theEncounter. The data comes from all [facility]. Test Date/Time Test Type Test Details Facility Name Feb 27, 2024 12:50 PM Consult Order OT OCCUPAT IONAL THERAPY OUTPT EQUIPMENT Cons Planer Operator's Choice [facility] TYLER Apr 06, 2024 12:00 AM Laboratory - Chemi stry Order BASIC METABOLIC PANEL+MG PLASMA SP ONCE [facility] Social History: Smoking Status (Most current) [...] 19, 2020 12:07 PM VA-TOBACCO FORMER USER [facility] Tobacco Use History This section includes a history of the smoking, or tobacco-related health factors, that were collected on or before the date of the Encounter. The data comes from the [place] facility where the Encounter took place. Date/Time Smoking Status/Tobacco Use Comment F acility Dec 19, 2020 12:07 PM VA-TOBACCO QUIT 5 TO < 15 YRS [facility] Aug 02, 2015 09:49 AM CURRENT TOBACCO USER [facility] Jun 06, 2014 08:51 AM CURRENT TOBACCO USER [facility] May 04, 2013 09:29 AM CURRENT TOBACCO USER [facility] Apr 24, 2012 07:40 AM CURRENT TOBACCO USER [facility] Advance Directives: All historical and current [...] 02, 2023 STATE-AUTHORIZED PORTABLE ORDERS [facility] Pathology Reports: +/- 30 days of the [...] the Encounter. The data comes from all [place] treatment facilities. Date/Time Pathology Report Provider Source Feb 23, 2024 12:25 PM LR SURGICAL PATHOL OGY REPORT: LOCAL TITLE: LR SURGICAL PATHOLOGY REPORT STANDARD TITLE: PATHOLOGY REPORT DATE OF NOTE: FEB 23, 2024@12:25:01 ENTRY DATE: FEB 23, 2024@12:25:01 AUTHOR: TANNA SMITH EXP COSIGNER: URGENCY: STATUS: COMPLETED $APHDR Reporting Lab: [facility] [CLIA# [id number]] [place] [address] - - - - - - - [...] Performing Laboratory: Surgical Pathology Report Performed By: [facility] [CLIA# [id number]] [place] [address] $FTR - - - - - - [...] - - GILDA CARRILLO STANDARD FORM 515 ID:[id number] SEX:M :1950 AGE: 73 LOC:[id number] PCP: Gelacio Michel /mateo/ TANNA SMITH MD STAFF PATHOLOGIST Signed: 02/23/2024 12:25 TANNA SMITH [facility] Encounter Notes: All associated encounter notes This section contains the clinical notes associated to the Encounter. Date/Time Encounter Note(s) Provider Source Mar 15, 2024 02:48 PM VASCULAR SURGERY N OTE: LOCAL TITLE: VASCULAR PAVE PROVIDER NOTE STANDARD TITLE: VASCULAR SURGERY NOTE DATE OF NOTE: MAR 15, 2024@14:48 ENTRY DATE: MAR 15, 2024@14:48:58 AUTHOR: JOYCE ROMANO EXP COSIGNER: URGENCY: STATUS: COMPLETED Called pt today to introduce Tele-PAVE program and answer any questions. Explained visit structure to patient and explained that purpose of visit is to provide screening and education regarding circulation disorders. Pt has no further questions today. Plan: keep appt on 03/29 5 minutes spent on this encounter. /nacho ROMANO DNP, RN, FAGOTER NURSE PRACTITIONER Signed: 03/15/2024 14:50 JOYEC ROMANO [facility]
--- OUTSIDE RECORDS SUMMARY | 2024-03-25 10:35 | XMS_ITS | Encounter Summary ---
Author Name [place] Address [address] [place] [address] Care Team Providers Care Housing Development Specialist Name Role Phone GELACIO MICHEL Primary [...] PART A Jul 21, 2014 PART A [id number] [phone] Miguelito CARRILLO PATIENT Selected Encounter This section includes the information on record at [place] for the Encounter. Date/Time Encounter Type Encounter Description Reason Provider Source Mar 19, 2024 01:26 PM Outpatient Encounter TELEPHONE TRIAGE GIANNA GIVENS [facility] Encounter Template Text not used by [place] Plan of Treatment: Future Appointments (+ 6 months) and Future Tests (+/- 45 days) The Plan of Treatment section includes future care activities for the patient from all [place] treatmentfacilities. This section includes future appointments and future orders which are active, pending or scheduled. Future Appointments This section includes appointments that were scheduled to occur 6 months from the date of the Encounter, up to a maximum of 20 appointments. The data comes from all [place] treatment facilities. Appointment Date/Time Appointment Type Appointme nt Facility Name Mar 29, 2024 01:00 PM AMBULATORY - SURGERY [facility] Mar 29, 2024 02:00 PM AMBULATORY - SURGERY [facility] Mar 30, 2024 08:30 AM AMBULATORY - REHAB MEDICIN E [facility] Apr 01, 2024 10:00 AM AMBULATORY - NONE [facility] Apr 12, 2024 10:15 AM AMBULATORY - SURGERY [facility] Apr 13, 2024 01:15 PM AMBULATORY - MEDICINE [facility] Apr 13, 2024 01:30 PM AMBULATORY - MEDICINE [facility] Apr 13, 2024 02:00 PM AMBULATORY - MEDICINE [facility] Apr 15, 2024 01:45 PM AMBULATORY - SURGERY [facility] May 06, 2024 04:00 PM AMBULATORY - MEDICINE [facility] May 12, 2024 02:00 PM AMBULATORY - MEDICINE [facility] May 12, 2024 03:00 PM AMBULATORY - MEDICINE [facility] Active, Pending, and Scheduled Orders This section includes a listing of several types of active, pending, and scheduled orders, including clinic medications orders, diagnostic test orders, procedure orders and consult orders; where the start date of the order is 45 days before the date of the Encounter or 45 days after the date of theEncounter. The data comes from all [place] treatment [facility]. Test Date/Time Test Type Test Details Facility Name Feb 27, 2024 12:50 PM Consult Order OT OCCUPAT IONAL THERAPY OUTPT EQUIPMENT Cons Bradley Linebacker Crewmember's Choice [facility] Apr 06, 2024 12:00 AM Laboratory - Chemi stry Order BASIC METABOLIC PANEL+MG PLASMA SP ONCE [facility] Social History: Smoking Status (Most current) and Tobacco Use (All prior to encounter date) This section includes the most current, and the historical, smoking and tobacco- related health factors from the [place] facility where the Encounter took place. Current Smoking Status This section includes the most current smoking, or tobacco-related health factor, from the [place] facility where the Encounter took place. Date/Time Current Smoking Status Comment Facil ity Dec 19, 2020 12:07 PM VA-TOBACCO QUIT 5 TO < 15 YRS [facility] Tobacco Use History This section includes a history of the smoking, or tobacco-related health factors, that were collected on or before the date of the Encounter. The data comes from the [place] facility where the Encounter took place. Date/Time Smoking Status/Tobacco Use Comment F acility Dec 19, 2020 12:07 PM VA-TOBACCO QUIT 5 TO < 15 YRS [facility] Aug 02, 2015 09:49 AM CURRENT TOBACCO USER [facility] Jun 06, 2014 08:51 AM CURRENT TOBACCO USER [facility] May 04, 2013 09:29 AM CURRENT TOBACCO USER [facility] Apr 24, 2012 07:40 AM CURRENT TOBACCO USER [facility] Advance Directives: All historical and current Section Date Range: From patient's date of to the date document was created. This section includes ALL of a patient's completed or amended [place] Advance and Rescinded Directives. The entries below indicate that a directive exists for the patient, but an actual copy is not included with this document. The data comes from all [place] facilities. Date Advance Directives Provider Source Jan [...] the Encounter. The data comes from all [place] treatment facilities. Date/Time Pathology Report Provider Source Feb 23, 2024 12:25 PM LR SURGICAL PATHOL [facility] REPORT: LOCAL TITLE: LR SURGICAL PATHOLOGY REPORT STANDARD TITLE: PATHOLOGY REPORT DATE OF NOTE: FEB 23, 2024@12:25:01 ENTRY DATE: FEB 23, 2024@12:25:01 AUTHOR: TANNA SMITH EXP COSIGNER: URGENCY: STATUS: COMPLETED $APHDR Reporting Lab: [facility] [CLIA# [id number]] [place] [address] - - - - - - - [...] Performing Laboratory: Surgical Pathology Report Performed By: [facility] [CLIA# [id number]] [place] [address] $FTR - - - - - - [...] - - GILDA CARRILLO STANDARD FORM 515 ID:[id number] SEX:M :1950 AGE: 73 LOC:[id number] PCP: Gelacio Michel /mateo/ TANNA SMITH MD STAFF PATHOLOGIST Signed: 02/23/2024 12:25 TANNA SMITH [facility] Encounter Notes: All associated encounter notes This section contains the clinical notes associated to the Encounter. Date/Time Encounter Note(s) Provider Source Mar 19, 2024 01:26 PM PHARMACY NOTE: LOCAL TITLE: CCC: PHARMACY I STANDARD TITLE: PHARMACY NOTE DATE OF NOTE: MAR 19, 2024@13:26 ENTRY DATE: MAR 19, 2024@13:26:37 AUTHOR: GIANNA GIVENS EXP COSIGNER: URGENCY: STATUS: COMPLETED CCC: PHARMACY I Has ADDENDA General request: [facility] is contacting [facility]: [facility]patient Best contact number: [phone] Request: Patient called today looking to get a new order of compression stockings. Just replacements of the ones he received 6 months ago. THank you for your time and help with this. Alerts are not monitored regularly by this user due to incoming calls through [place] [facility] ([facility]) Contact Center. Please follow up with local outpatient pharmacy for any immediate or urgent needs. /mateo/ GIANNA GIVENS FLEXOGRAPHIC PRESS SET UP OPERATOR GIANNA GIVENS [facility] Signed: 03/19/2024 13:28 Receipt Acknowledged By: 03/19/2024 15:31 /es/ GELACIO MICHEL DNPASSISTED LIVING DIRECTORGus Lopez 03/19/2024 15:02 /mateo/ NIRU SUAZO RN REGISTERED NURSE 03/19/2024 ADDENDUM STATUS: COMPLETED Prosthetics order for replacement SensiFoot socks size XL x 4 entered, per request. /mateo/ NIRU SUAZO RN REGISTERED NURSE Signed: 03/19/2024 15:04 GIANNA GIVENS [facility]
--- OUTSIDE RECORDS SUMMARY | 2024-03-25 10:35 | XMS_ITS | Encounter Summary ---
Author Name [facility] [place] Address [address] [place] [address] Care Team Providers Care Agricultural Economics Professor Name Role Phone GELACIO MICHEL Primary Care [...] PART A Jul 21, 2014 PART A [id number] [phone] Miguelito CARRILLO PATIENT Selected Encounter This section includes the information on record at [place] for the Encounter. Date/Time Encounter Type Encounter Description Reason Pro vider Source Feb 27, 2024 09:05 AM Outpatient Encounter PRIMARY CARE/MEDICINE IHE Encounter Template Text not used by [place] Plan of Treatment: Future Appointments (+ 6 months) and Future Tests (+/- 45 days) The Plan of Treatment section includes future care activities for the patient from all [place] treatmentfacilities. This section includes future appointments and future orders which are active, pending or scheduled. Future Appointments This section includes appointments that were scheduled to occur 6 months from the date of the Encounter, up to a maximum of 20 appointments. The data comes from all [place] treatment facilities. Appointment Date/Time Appointment Type Appointme nt Facility Name Mar 29, 2024 01:00 PM AMBULATORY - SURGERY [facility] Mar 29, 2024 02:00 PM AMBULATORY - SURGERY [facility] Mar 30, 2024 08:30 AM AMBULATORY - REHAB MEDICIN E [facility] Apr 01, 2024 10:00 AM AMBULATORY - NONE [facility] Apr 12, 2024 10:15 AM AMBULATORY - SURGERY [facility] Apr 13, 2024 01:15 PM AMBULATORY - MEDICINE [facility] Apr 13, 2024 01:30 PM AMBULATORY - MEDICINE [facility] Apr 13, 2024 02:00 PM AMBULATORY - MEDICINE [facility] Apr 15, 2024 01:45 PM AMBULATORY - SURGERY [facility] May 06, 2024 04:00 PM AMBULATORY - MEDICINE [facility] May 12, 2024 02:00 PM AMBULATORY - MEDICINE [facility] May 12, 2024 03:00 PM AMBULATORY - MEDICINE [facility] Active, Pending, and Scheduled Orders This section includes a listing of several types of active, pending, and scheduled orders, including clinic medications orders, diagnostic test orders, procedure orders and consult orders; where the start date of the order is 45 days before the date of the Encounter or 45 days after the date of theEncounter. The data comes from all [facility]. Test Date/Time Test Type Test Details Facility Name Feb 27, 2024 12:50 PM Consult Order OT OCCUPAT IONAL THERAPY OUTPT EQUIPMENT Cons Flight Control Tower Operator's Choice [facility] Apr 06, 2024 12:00 AM Laboratory - Chemi stry Order BASIC METABOLIC PANEL+MG PLASMA SP ONCE [facility] Lab Results: +/- 30 days of the encounter This section includes the Chemistry and Hematology Lab Results on record with [place] for the patient. Radiology Reports and Pathology Reports are provided separately, in subsequent sections. Lab Results This section contains the Chemistry/Hematology Results that were resulted 30 days before or 30 daysafter the date of the Encounter. Date/Time Source Result Type Result - Unit Interpretation Reference Range Comment Feb 12, 2024 12:[address] [facility] BASIC METABOLIC PANEL+MG Specimen Type: PLASMA No comment entered. Ordering Provider: FLAQUITO VIRGEN Report Released Date/Time: Feb 04, 2024 02:58 PM Reporting Lab: [facility] [id number] Performing Lab: [facility] [id number] CREATININE 1.4 mg/dL H 0.7-1.2 UREA NITROGEN 21 mg/dL 8-26 GLUCOSE 135 mg/dL H 70-100 SODIUM 136 mmol/L 136-145 POTASSIUM 4.0 mmol/L 3.5-5.1 CHLORIDE 100 mmol/L 98-107 CO2 25 mmol/L 22-29 CALCIUM 9.3 mg/dL 8.4-10.2 MAGNESIUM 2.2 mg/dL 1.6-2.6 ANION GAP 11 mmol/L 5-15 .CREAT EGFR(CKD-EPI ) 53 L >60 Feb 04, 2024 01:[address] [facility] BNP Specimen Type: PLASMA No comment entered. Ordering Provider: FLAQUITO VIRGEN Report Released Date/Time: Aug 13, 2023 11:38 AM Reporting Lab: [facility] [id number] Performing Lab: [facility] [id number] BNP 23 pg/mL <99 Feb 04, 2024 01:[address] [facility] BASIC METABOLIC PANEL+MG Specimen Type: PLASMA No comment entered. Ordering Provider: FLAQUITO VIRGEN Report Released Date/Time: Aug 13, 2023 11:38 AM Reporting Lab: [facility] [id number] Performing Lab: [facility] [id number] CREATININE 1.2 mg/dL 0.7-1.2 UREA NITROGEN 18 [...] and tobacco- related health factors from the [place] facility where the Encounter took place. Current Smoking Status This section includes the most current smoking, or tobacco-related health factor, from the [place] facility where the Encounter took place. Date/Time Current Smoking Status Comment Tasha ity Dec 19, 2020 12:07 PM VA-TOBACCO FORMER USER [facility] Tobacco Use History This section includes a history of the smoking, or tobacco-related health factors, that were collected on or before the date of the Encounter. The data comes from the [place] facility where the Encounter took place. Date/Time Smoking Status/Tobacco Use Comment F acility Dec 19, 2020 12:07 PM VA-TOBACCO QUIT 5 TO < [address] [facility] Aug 02, 2015 09:49 AM CURRENT TOBACCO USER [facility] Jun 06, 2014 08:51 AM CURRENT TOBACCO USER [facility] May 04, 2013 09:29 AM CURRENT TOBACCO USER [facility] Apr 24, 2012 07:40 AM CURRENT TOBACCO USER [facility] Advance Directives: All historical and current Section Date Range: From patient's date of to the date document was created. This section includes ALL of a patient's completed or amended [place] Advance and Rescinded Directives. The entries below indicate that a directive exists for the patient, but an actual copy is not included with this document. The data comes from all [facility]. Date Advance Directives Provider Source Jan 02, 2023 STATE-AUTHORIZED PORTABLE ORDERS [facility] Pathology Reports: +/- 30 days [...] the Encounter. The data comes from all [place] treatment facilities. Date/Time Pathology Report Provider Source Feb 23, 2024 12:25 PM LR SURGICAL PATHOL OGY REPORT: LOCAL TITLE: LR SURGICAL PATHOLOGY REPORT STANDARD TITLE: PATHOLOGY REPORT DATE OF NOTE: FEB 23, 2024@12:25:01 ENTRY DATE: FEB 23, 2024@12:25:01 AUTHOR: TANNA SMITH EXP COSIGNER: URGENCY: STATUS: COMPLETED $APHDR Reporting Lab: [facility] [CLIA# [id number]] [place] [address] - - - - - - - [...] Laboratory: Surgical Pathology Report Performed By: [facility] [CLIA# [id number]] [place] [address] $FTR - - - - - - - - - - - - - - - - - - - - - - - - - - - - - - - - - - - - - - - - (End of report) TANNA SMITH MD [facility] Date Feb 23, 2024 - - - - - - - - - - - - - - - - - - - - - - - - - - - - - - - - - - - - - - - - GILDA CARRILLO STANDARD FORM 515 ID:[id number] SEX:M :1950 AGE: 73 LOC:[id number] PCP: Gelacio Michel /mateo/ TANNA SMITH MD STAFF PATHOLOGIST Signed: 02/23/2024 12:[address] [facility] Encounter Notes: All associated encounter notes This section contains the clinical notes associated to the Encounter. Date/Time Encounter Note(s) Provider Source Feb 27, 2024 11:13 AM ADDENDUM: LOCAL TITLE: Addendum STANDARD TITLE: ADDENDUM DATE OF NOTE: FEB 27, 2024@11:13:58 ENTRY DATE: FEB 27, 2024@11:14 AUTHOR: [facility] EXP COSIGNER: URGENCY: STATUS: COMPLETED Prepress Manager not able to readily locate when emergency alert device was issued. will likely need OT consult. Alerting PACT. /MARIAJOSE Villagran [facility] Historian Signed: 02/27/2024 11:16 Receipt Acknowledged By: 02/27/2024 12:50 /mateo/ MANDY MARIE DNP 02/27/2024 11:41 /mateo/ NIRU SUAZO RN REGISTERED NURSE --- Original Document --- 02/27/24 PATIENT CONTACT NOTE: Patient contact Name of : GILAD CARRILLO Name/Relationship of Contact if other than : Date & Time of Contact: Feb@09:05 Type of Contact: Reason for Contact: [place] called and LVM requesting a call back to discuss getting a new life alert as the one he has will not hold chrger for longer than 15 mins. /nacho ARAUZ [facility] Signed: 02/27/2024 09:06 Receipt Acknowledged By: 02/27/2024 11:16 /[facility] Pasha [facility] County Historian 02/27/2024 ADDENDUM STATUS: COMPLETED RN was also unable to locate OT consult where alert device was issued. Pended new OT consult for provider, highlighting that current device is malfunctioning. /nacho SUAZO RN REGISTERED NURSE Signed: 02/27/2024 11:42 [facility] Feb 27, 2024 09:05 AM REPORT OF CONTACT: LOCAL TITLE: PATIENT CONTACT NOTE STANDARD TITLE: REPORT OF CONTACT DATE OF NOTE: FEB 27, 2024@09:05 ENTRY DATE: FEB 27, 2024@09:05:20 AUTHOR: ANA ARAUZ COSIGNER: URGENCY: STATUS: COMPLETED PATIENT CONTACT NOTE Has ADDENDA Patient contact Name of : GILDA CARRILLO Name/Relationship of Contact if other than [place]: Date & Time of Contact: Feb@09:05 Type of Contact: Reason for Contact: [place] called and LVM requesting a call back to discuss getting a new life alert as the one he has will not hold chrger for longer than 15 mins. /es/ ANA ARAUZ [facility] Signed: 02/27/2024 09:06 Receipt Acknowledged By: 02/27/2024 11:16 /mateo/ MARIAJOSE SCHREIBER [place] Historian 02/27/2024 ADDENDUM STATUS: COMPLETED Prepress Manager not able to readily locate when emergency alert device was issued. [place] will likely need OT consult. Alerting PACT. /mateo/ MARIAJOSE SCHREIBER [facility] [place] Historian Signed: 02/27/2024 11:16 Receipt Acknowledged By: * AWAITING SIGNATURE * GELACIO MICHEL 02/27/2024 11:41 /mateo/ NIRU SUAZO RN REGISTERED NURSE 02/27/2024 ADDENDUM STATUS: COMPLETED RN was also unable to locate OT consult where alert device was issued. Pended new OT consult for provider, highlighting that current device is malfunctioning. /mateo/ NIRU SUAZO RN REGISTERED NURSE Signed: 02/27/2024 11:42 ANA ARAUZ [facility]
--- OUTSIDE RECORDS SUMMARY | 2024-03-25 10:35 | XMS_ITS | Encounter Summary ---
Author Name [facility] [place] Organization [place] Address [address] [place] [address] Care Team Providers Care Banquet Bartender Name Role Phone ALIYA MICHEL Primary Care [...] PART A Jul 21, 2014 PART A [id number] [phone] Miguelito CARRILLO PATIENT Selected Encounter This section includes the information on record at [place] for the Encounter. Date/Time Encounter Type Encounter Description Reason Provider Source Mar 24, 2024 09:47 AM Outpatient Encounter TELEPHONE TRIAGE REEMA MOYER Encounter Template Text not used by [place] Plan of Treatment: Future Appointments (+ 6 months) and Future Tests (+/- 45 days) The Plan of Treatment section includes future care activities for the patient from all [place] treatmentfacilities. This section includes future appointments and future orders which are active, pending or scheduled. Future Appointments This section includes appointments that were scheduled to occur 6 months from the date of the Encounter, up to a maximum of 20 appointments. The data comes from all [place] treatment facilities. Appointment Date/Time Appointment Type Appointme nt Facility Name Mar 29, 2024 01:00 PM AMBULATORY - SURGERY [facility] Mar 29, 2024 02:00 PM AMBULATORY - SURGERY [facility] Mar 30, 2024 08:30 AM AMBULATORY - REHAB MEDICIN E [facility] Apr 01, 2024 10:00 AM AMBULATORY - NONE [facility] Apr 12, 2024 10:15 AM AMBULATORY - SURGERY [facility] Apr 13, 2024 01:15 PM AMBULATORY - MEDICINE [facility] Apr 13, 2024 01:30 PM AMBULATORY - MEDICINE [facility] Apr 13, 2024 02:00 PM AMBULATORY - MEDICINE [facility] Apr 15, 2024 01:45 PM AMBULATORY - SURGERY [facility] May 06, 2024 04:00 PM AMBULATORY - MEDICINE [facility] May 12, 2024 02:00 PM AMBULATORY - MEDICINE [facility] May 12, 2024 03:00 PM AMBULATORY - MEDICINE [facility] Active, Pending, and Scheduled Orders This section includes a listing of several types of active, pending, and scheduled orders, including clinic medications orders, diagnostic test orders, procedure orders and consult orders; where the start date of the order is 45 days before the date of the Encounter or 45 days after the date of theEncounter. The data comes from all [facility]. Test Date/Time Test Type Test Details Facility Name Feb 27, 2024 12:50 PM Consult Order OT OCCUPAT IONAL THERAPY OUTPT EQUIPMENT Cons Health It Specialist's Choice [facility] Apr 06, 2024 12:00 AM Laboratory - Chemi stry Order BASIC METABOLIC PANEL+MG PLASMA SP ONCE [facility] May 05, 2024 12:00 AM Laboratory - Chemi stry Order BNP PLASMA SP ONCE [facility] May 05, 2024 12:00 AM Laboratory - Chemi stry Order BASIC METABOLIC PANEL+MG PLASMA SP [facility] Social History: Smoking Status (Most current) and Tobacco Use (All prior to encounter date) This section includes the most current, and the historical, smoking and tobacco- related health factors from the [place] facility where the Encounter took place. Current Smoking Status This section includes the most current smoking, or tobacco-related health factor, from the [place] facility where the Encounter took place. Date/Time Current Smoking Status Comment Facil ity Dec 19, 2020 12:07 PM VA-TOBACCO QUIT 5 TO < 15 YRS [facility] Tobacco Use History This section includes a history of the smoking, or tobacco-related health factors, that were collected on or before the date of the Encounter. The data comes from the [place] facility where the Encounter took place. Date/Time Smoking Status/Tobacco Use Comment Seth adame Dec 19, 2020 12:07 PM VA-TOBACCO QUIT 5 TO < 15 YRS [facility] Aug 02, 2015 09:49 AM CURRENT TOBACCO USER [facility] Jun 06, 2014 08:51 AM CURRENT TOBACCO USER [facility] May 04, 2013 09:29 AM CURRENT TOBACCO USER [facility] Apr 24, 2012 07:40 AM CURRENT TOBACCO USER [facility] Advance Directives: All historical and current Section Date Range: From patient's date of to the date document was created. This section includes ALL of a patient's completed or amended [place] Advance and Rescinded Directives. The entries below indicate that a directive exists for the patient, but an actual copy is not included with this document. The data comes from all [facility]. Date Advance Directives Provider Source Jan 02, 2023 STATE-AUTHORIZED PORTABLE ORDERS [facility] Pathology Reports: +/- 30 days [...] the Encounter. The data comes from all [place] treatment facilities. Date/Time Pathology Report Provider Source Feb 23, 2024 12:25 PM LR SURGICAL PATHOL OGY REPORT: LOCAL TITLE: LR SURGICAL PATHOLOGY REPORT STANDARD TITLE: PATHOLOGY REPORT DATE OF NOTE: FEB 23, 2024@12:25:01 ENTRY DATE: FEB 23, 2024@12:25:01 AUTHOR: TANNA SMITH EXP COSIGNER: URGENCY: STATUS: COMPLETED $APHDR Reporting Lab: [facility] [CLIA# [id number]] [place] [address] - - - - - - - [...] Performing Laboratory: Surgical Pathology Report Performed By: [facility] [CLIA# [id number]] [place] [address] $FTR - - - - - - [...] - - GILDA CARRILLO STANDARD FORM 515 ID:[id number] SEX:M :1950 AGE: 73 LOC:[id number] PCP: Aliya Michel /mateo/ TANNA SMITH MD STAFF PATHOLOGIST Signed: 02/23/2024 12:25 TANNA SMITH [facility] Encounter Notes: All associated encounter notes This section contains the clinical notes associated to the Encounter. Date/Time Encounter Note(s) Provider Source Mar 24, 2024 09:47 AM PHARMACY NOTE: LOCAL TITLE: CCC: PHARMACY I STANDARD TITLE: PHARMACY NOTE DATE OF NOTE: MAR 24, 2024@09:47 ENTRY DATE: MAR 24, 2024@09:47:30 AUTHOR: REEMA MOYER EXP COSIGNER: URGENCY: STATUS: COMPLETED General request: [facility] is contacting the [facility]: [place]patient Best contact number: Request: BANDAGE,GAUZE 4.5IN X 4.1YD STERILE is requestign refills of this discontinued supplies.If appropriate, send new prescription to [place] pharmacy or contact . Alerts are not monitored regularly by this user due to incoming calls through [place] [facility] ([facility]) Contact Center. Please follow up with local outpatient pharmacy for any immediate or urgent needs. /mateo/ REEMA MOYER CPHT V23 [facility] SUSPECT ARTIST SUPERVISOR Signed: 03/24/2024 09:48 Receipt Acknowledged By: 03/24/2024 16:33 /es/ ALIYA MICHEL DNP,MANDY MOYER [facility]
--- OUTSIDE RECORDS SUMMARY | 2024-03-25 10:35 | XMS_ITS | Encounter Summary ---
Author Name [place] Address [address] [place] [address] Care Team Providers Care Adjunct Spanish Instructor Name Role Phone GELACIO MICHEL Primary Care [...] PART A Jul 21, 2014 PART A [id number] [phone] Miguelito CARRILLO PATIENT Selected Encounter This section includes the information on record at [place] for the Encounter. Date/Time Encounter Type Encounter Description Reason Provider Source Mar 19, 2024 11:48 AM Outpatient Encounter HT NON-VIDEO MONITORING ICD-10-CM I50.9 Heart failure, unspecified PARAS BOWDEN [facility] Encounter Template Text not used by [place] Assessments - Encounter Diagnoses This section includes the primary and secondary diagnoses documented for the Encounter. Date/Time Primary/Secondary Diagnosis Diagnosis Name Provider Source Mar 19, 2024 11:50 AM PRIMARY Heart failure, unspecified ELLA BOWDEN [facility] Plan of Treatment: Future Appointments (+ 6 months) and Future Tests (+/- 45 days) The Plan of Treatment section includes future care activities for the patient [facility] [place] [facility] This section includes future appointments and future orders which are active, pending or scheduled. Future Appointments This section includes appointments that were scheduled to occur 6 months from the date of the Encounter, up to a maximum of 20 appointments. The data comes from all [facility]. Appointment Date/Time Appointment Type Appointme nt Facility Name Mar 29, 2024 01:00 PM AMBULATORY - SURGERY [facility] Mar 29, 2024 02:00 PM AMBULATORY - SURGERY [facility] Mar 30, 2024 08:30 AM AMBULATORY - REHAB MEDICIN E [facility] Apr 01, 2024 10:00 AM AMBULATORY - NONE [facility] Apr 12, 2024 10:15 AM AMBULATORY - SURGERY [facility] Apr 13, 2024 01:15 PM AMBULATORY - MEDICINE [facility] Apr 13, 2024 01:30 PM AMBULATORY MEDICINE [facility] Apr 13, 2024 02:00 PM AMBULATORY - MEDICINE [facility] Apr 15, 2024 01:45 PM AMBULATORY - SURGERY [facility] May 06, 2024 04:00 PM AMBULATORY - MEDICINE [facility] May 12, 2024 02:00 PM AMBULATORY - MEDICINE [facility] May 12, 2024 03:00 PM AMBULATORY MEDICINE [facility] Active, Pending, and Scheduled Orders This section includes a listing of several types of active, pending, and scheduled orders, including clinic medications orders, diagnostic test orders, procedure orders and consult orders; where the start date of the order is 45 days before the date of the Encounter or 45 days after the date of theEncounter. The data comes from all [facility]. Test Date/Time Test Type Test Details Facility Name Feb 27, 2024 12:50 PM Consult Order OT OCCUPAT IONAL THERAPY OUTPT EQUIPMENT Cons Transfer Table Operator Helper's Choice [facility] Apr 06, 2024 12:00 AM Laboratory - Chemi stry Order BASIC METABOLIC PANEL+MG PLASMA SP ONCE [facility] Social History: Smoking Status (Most current) and Tobacco Use (All prior to encounter date) This section includes the most current, and the historical, smoking and tobacco- related health factors from the [place] facility where the Encounter took place. Current Smoking Status This section includes the most current smoking, or tobacco-related health factor, from the [place] facility where the Encounter took place. Date/Time Current Smoking Status Comment Tasha ity Dec 19, 2020 12:07 PM VA-TOBACCO FORMER USER [facility] Tobacco Use History This section includes a history of the smoking, or tobacco-related health factors, that were collected on or before the date of the Encounter. The data comes from the [place] facility where the Encounter took place. Date/Time Smoking Status/Tobacco Use Comment F acility Dec 19, 2020 12:07 PM VA-TOBACCO QUIT 5 TO < 15 YRS [facility] Aug 02, 2015 09:49 AM CURRENT TOBACCO USER [facility] Jun 06, 2014 08:51 AM CURRENT TOBACCO USER [facility] May 04, 2013 09:29 AM CURRENT TOBACCO USER [facility] Apr 24, 2012 07:40 AM CURRENT TOBACCO USER [facility] Advance Directives: All historical and current Section Date Range: From patient's date of to the date document was created. This section includes ALL of a patient's completed or amended [place] Advance and Rescinded Directives. The entries below indicate that a directive exists for the patient, but an actual copy is not included with this document. The data comes from all [facility]. Date Advance Directives Provider Source Jan 02, 2023 STATE-AUTHORIZED PORTABLE ORDERS [facility] Pathology Reports: +/- 30 days of the [...] the Encounter. The data comes from all [place] treatment facilities. Date/Time Pathology Report Provider Source Feb 23, 2024 12:25 PM LR SURGICAL PATHOL OGY REPORT: LOCAL TITLE: LR SURGICAL PATHOLOGY REPORT STANDARD TITLE: PATHOLOGY REPORT DATE OF NOTE: FEB 23, 2024@12:25:01 ENTRY DATE: FEB 23, 2024@12:25:01 AUTHOR: TANNA SMITH EXP COSIGNER: URGENCY: STATUS: COMPLETED $APHDR Reporting Lab: [facility] [CLIA# [id number]] [place] [address] - - - - - - - [...] Performing Laboratory: Surgical Pathology Report Performed By: [facility] [CLIA# [id number]] [facility] [place] [address] $FTR - - - - - - [...] - - GILDA CARRILLO STANDARD FORM 515 ID:[id number] SEX:M :1950 AGE: 73 LOC:[id number] PCP: Gelacio Michel /mateo/ TANNA SMITH MD STAFF PATHOLOGIST Signed: 02/23/2024 12:25 TANNA SMITH [facility] Encounter Notes: All associated encounter notes This section contains the clinical notes associated to the Encounter. Date/Time Encounter Note(s) Provider Source Mar 19, 2024 11:48 AM CARE COORDINATION HOME TELEHEALTH SUMMARIZATION NOTE: LOCAL TITLE: MONTHLY MONITOR NOTE STANDARD TITLE: CARE COORDINATION HOME TELEHEALTH SUMMARIZATION DATE OF NOTE: MAR 19, 2024@11:48 ENTRY DATE: MAR 19, 2024@11:48:56 AUTHOR: ELLA BOWDEN COSIGNER: URGENCY: STATUS: COMPLETED The [facility] is enrolled in the Home Telehealth (HT) program and continues to be monitored via HT technology. The data sent by the [facility] is reviewed and analyzed by the staff, who provide ongoing case management and health education while communicating and collaborating with the health care team as appropriate. This note covers a total of 30 minutes for the month monitored. Month monitored: February ELLA BOWDEN RN Chronic Rn Cardiac/HT Signed: 03/19/2024 11:50 ELLA BOWDEN [facility]
--- OUTSIDE RECORDS SUMMARY | 2024-03-25 10:35 | XMS_ITS | Encounter Summary ---
Author Name [place] Address [address] [place] [address] Care Team Providers Care Press Loader Name Role Phone GELACIO MICHEL Primary Care [...] PART A Jul 21, 2014 PART A [id number] [phone] Miguelito CARRILLO PATIENT Selected Encounter This section [...]
--- OUTSIDE RECORDS SUMMARY | 2024-03-25 10:35 | XMS_ITS | Encounter Summary ---
Author Name [facility] Organization [facility] Address [address] [place] [address] Care Team Providers Care Advertising Associate Name Role Phone GELACIO MICHEL Primary Care [...] PART A Jul 21, 2014 PART A [id number] Miguelito CARRILLO PATIENT Selected Encounter This section includes the information on record at [place] for the Encounter. Date/Time Encounter Type Encounter Description Reason Pro vider Source Feb 24, 2024 11:14 AM Outpatient Encounter OPHTHALMOLOGY IHE Encounter Template Text not used by [...] 26, 2024 10:00 AM AMBULATORY - NONE [facility] Mar 29, 2024 01:00 PM AMBULATORY - SURGERY [facility] Mar 29, 2024 02:00 PM AMBULATORY - SURGERY [facility] Mar 30, 2024 08:30 AM AMBULATORY - REHAB MEDICIN E [facility] Apr 01, 2024 10:00 AM AMBULATORY - NONE [facility] Apr 12, 2024 10:15 AM AMBULATORY - SURGERY [facility] Apr 13, 2024 01:15 PM AMBULATORY - MEDICINE [facility] Apr 13, 2024 01:30 PM AMBULATORY - MEDICINE [facility] Apr 13, 2024 02:00 PM AMBULATORY - MEDICINE [facility] Apr 15, 2024 01:45 PM AMBULATORY - SURGERY [facility] May 06, 2024 04:00 PM AMBULATORY - MEDICINE [facility] May 12, 2024 02:00 PM AMBULATORY - MEDICINE [facility] May 12, 2024 03:00 PM AMBULATORY - MEDICINE [facility] Active, Pending, and Scheduled Orders This section includes a listing of several types of active, pending, and scheduled orders, including clinic medications orders, diagnostic test orders, procedure orders and consult orders; where the start date of the order is 45 days before the date of the Encounter or 45 days after the date of theEncounter. The data comes from all [facility]. Test Date/Time Test Type Test Details Facility Name Feb 27, 2024 12:50 PM Consult Order OT OCCUPAT IONAL THERAPY OUTPT EQUIPMENT Cons Pcb Design Engineer's Choice [facility] Apr 06, 2024 12:00 AM Laboratory - Chemi stry Order BASIC METABOLIC PANEL+MG PLASMA SP ONCE [facility] Lab Results: +/- 30 [...] Range Comment Feb 12, 2024 12:12 PM [facility] BASIC METABOLIC PANEL+MG Specimen Type: PLASMA No comment entered. Ordering Provider: FLAQUITO VIRGEN Report Released Date/Time: Feb 04, 2024 02:58 PM Reporting Lab: [facility] [id number] Performing Lab: [facility] [id number] CREATININE 1.4 mg/dL H 0.7-1.2 UREA NITROGEN 21 mg/dL 8-26 GLUCOSE 135 mg/dL H 70-100 SODIUM 136 mmol/L 136-145 POTASSIUM 4.0 mmol/L 3.5-5.1 CHLORIDE 100 mmol/L 98-107 CO2 25 mmol/L 22-29 CALCIUM 9.3 mg/dL 8.4-10.2 MAGNESIUM 2.2 mg/dL 1.6-2.6 ANION GAP 11 mmol/L 5-15 .CREAT EGFR(CKD-EPI ) 53 L >60 Feb 04, 2024 01:40 PM [facility] BNP Specimen Type: PLASMA No comment entered. Ordering Provider: FLAQUITO VIRGEN Report Released Date/Time: Aug 13, 2023 11:38 AM Reporting Lab: [facility] [id number] Performing Lab: [facility] [id number] BNP 23 pg/mL <99 Feb 04, 2024 01:40 PM [facility] BASIC METABOLIC PANEL+MG Specimen Type: PLASMA No comment entered. Ordering Provider: FLAQUITO VIRGEN Report Released Date/Time: Aug 13, 2023 11:38 AM Reporting Lab: [facility] [id number] Performing Lab: [facility] [id number] CREATININE 1.2 mg/dL 0.7-1.2 UREA NITROGEN 18 [...] 19, 2020 12:07 PM VA-TOBACCO FORMER USER [facility] Tobacco Use History This section includes a history of the smoking, or tobacco-related health factors, that were collected on or before the date of the Encounter. The data comes from the [place] facility where the Encounter took place. Date/Time Smoking Status/Tobacco Use Comment F acility Dec 19, 2020 12:07 PM VA-TOBACCO QUIT 5 TO < 15 YRS [facility] [...] this document. The data comes from all [facility]. Date Advance Directives Provider Source Jan 02, 2023 STATE-AUTHORIZED PORTABLE ORDERS [facility] Pathology Reports: +/- 30 days of [...] COSIGNER: URGENCY: STATUS: COMPLETED $APHDR Reporting Lab: [facility] [CLIA# [id number]] [place] [address] - - - - - - - [...] - - - PATHOLOGY REPORT Accession No. [id number] - - - - - [...] Performing Laboratory: Surgical Pathology Report Performed By: [facility] [CLIA# [id number]] [facility] [address] $FTR - - - - - - [...] - - GILDA CARRILLO STANDARD FORM 515 ID:[id number] SEX:M :1950 AGE: 73 LOC:[id number] PCP: Gelacio Michel /mateo/ TANNA SMITH MD STAFF PATHOLOGIST Signed: 02/23/2024 12:25 TANNA SMITH [facility] Encounter Notes: All associated encounter notes This section contains the clinical notes associated to the Encounter. Date/Time Encounter Note(s) Provider Source Feb 24, 2024 11:14 AM REPORT OF CONTACT: LOCAL TITLE: APPOINTMENT SCHEDULING NOTE STANDARD TITLE: REPORT OF CONTACT DATE OF NOTE: FEB 24, 2024@11:14 ENTRY DATE: FEB 24, 2024@11:14:31 AUTHOR: KAREY CASTELLANO EXP COSIGNER: URGENCY: STATUS: COMPLETED Attempted to schedule Cancellation Patient cancellation Contact attempt made to [facility] 1st attempt Telephone 2nd attempt Letter - Sent letter by regular [place] mail to address on file: GILDA CARRILLO [address] [place] [id number] Disposition order request after Feb If [facility] calls back, schedule appt for: [facility] resident [place], [place], MD PUPIL CHECK, COLOR PLATES, OCT MAC AND RNFL /es/ JACIEL CASTELLANO ADVANCED MSA Signed: 02/24/2024 11:15 JACIEL CASTELLANO [facility]
--- OUTSIDE RECORDS SUMMARY | 2024-03-25 10:35 | XMS_ITS | Encounter Summary ---
Author Name [facility] Organization [facility] Address [address] [place] [address] Care Team Providers Care Managing Director Atlas Name Role Phone GELACIO MICHEL Primary Care [...] PART A Jul 21, 2014 PART A [id number] Miguelito CARRILLO PATIENT Selected Encounter This section includes the information on record at [place] for the Encounter. Date/Time Encounter Type Encounter Description Reason Provider Source Oct 07, 2023 02:00 PM OFFICE O/P EST HI 40 MIN CARDIOLOGY ICD-10-CM I48.19 Other persistent atrial fibrillation HITESH HOLGUIN [facility] Encounter Template Text not used by [place] Assessments - Encounter Diagnoses This section includes the primary and secondary diagnoses documented for the Encounter. 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 This section includes future appointments and future orders which are active, pending or scheduled. Future Appointments This section includes appointments that were scheduled to occur 6 months from the date of the Encounter, up to a maximum of 20 appointments. The data comes from all [facility]. Appointment Date/Time Appointment Type Appointme nt Facility Name Oct 27, 2023 11:30 AM AMBULATORY - NONE [facility] Nov 05, 2023 01:30 PM AMBULATORY - NONE [facility] December 01, 2023 12:30 PM AMBULATORY - SURGERY [place] [facility] December 07, 2023 07:00 AM AMBULATORY - NONE [place] [facility] Dec 25, 2023 02:20 PM AMBULATORY - SURGERY [place] [facility] Dec 25, 2023 02:45 PM AMBULATORY - [place] [facility] Dec 30, 2023 01:30 PM AMBULATORY - [place] [facility] Jan 06, 2024 12:30 PM AMBULATORY - [place]ICINE [place] [facility] Jan 06, 2024 01:00 PM AMBULATORY - [place]IC[place] [facility] Jan 06, 2024 02:00 PM AMBULATORY - [place]IC[place] [facility] Jan 06, 2024 02:45 PM AMBULATORY - [place]ICINE [place] [facility] Jan 08, 2024 07:45 PM AMBULATORY - NONE [place] [facility] Jan 12, 2024 01:15 PM AMBULATORY - SURGERY [place] [facility] Jan 13, 2024 03:00 PM AMBULATORY - NONE [facility] Jan 21, 2024 11:30 AM AMBULATORY - MEDICINE [facility] Feb 04, 2024 01:30 PM AMBULATORY - [place]ICINE [place] [facility] Feb 04, 2024 02:30 PM AMBULATORY - [place]ICINE [place] [facility] Feb 11, 2024 02:30 PM AMBULATORY - [place]ICINE [place] [facility] Feb 12, 2024 12:30 PM AMBULATORY - NONE HITESH LANDRY [facility] Feb 12, 2024 01:30 PM AMBULATORY - SURGERY JANNETH MASSEY [facility] Active, Pending, and Scheduled Orders This section includes a listing of several types of active, pending, and scheduled orders, including clinic medications orders, diagnostic test orders, procedure orders and consult orders; where the start date of the order is 45 days before the date of the Encounter or 45 days after the date of theEncounter. The data comes from all [place] treatment facilities. Test Date/Time Test Type Test Details Facility Name Sep 29, 2023 12:00 AM Laboratory - Chemi stry Order BASIC METABOLIC PANEL+MG PLASMA SP ONCE [facility] Nov 05, 2023 12:00 AM Laboratory - Chemi stry Order OCCULT BLOOD FIT X1 SCREEN STOOL FECES SP ONCE [facility] Lab Results: +/- 30 days of [...] Range Comment Oct 07, 2023 11:36 AM [facility] BASIC METABOLIC PANEL+MG Specimen Type: PLASMA No comment entered. Ordering Provider: HITESH HOLGUIN Report Released Date/Time: Jul 21, 2023 11:36 AM Reporting Lab: [facility] [id number] Performing Lab: [facility] [id number] CREATININE 1.2 mg/dL 0.7-1.2 UREA NITROGEN 25 mg/dL 8-26 GLUCOSE 123 mg/dL H 70-100 SODIUM 138 mmol/L 136-145 POTASSIUM 3.8 mmol/L 3.5-5.1 CHLORIDE 98 mmol/L 98-107 CO2 28 mmol/L 22-29 CALCIUM 9.8 mg/dL 8.4-10.2 MAGNESIUM 2.3 mg/dL 1.6-2.6 ANION GAP 12 mmol/L 5-15 .CREAT EGFR(CKD-EPI ) 63 >60 Vital Signs: All taken on the encounter date This section contains inpatient and outpatient Vital Signs collected on the date of the Encounter. Date/Time Temperature Pulse Blood Pressure Respiratory Rate SP02 Pain Height Weight Body Mass Index Source Oct 07, 2023 01:03 PM 116/74 360 44 LIT [facility] Social History: Smoking Status (Most current) and Tobacco Use (All prior to encounter date) This section includes the most current, and the historical, smoking and tobacco- related health factors from the [place] facility where the Encounter took place. Current Smoking Status This section includes the most current smoking, or tobacco-related health factor, from the [place] facility where the Encounter took place. Date/Time Current Smoking Status Comment Facil ity Dec 19, 2020 12:07 PM VA-TOBACCO FORMER USER [facility] Tobacco Use History This section includes a history of the smoking, or tobacco-related health factors, that were collected on or before the date of the Encounter. The data comes from the [place] facility where the Encounter took place. Date/Time Smoking Status/Tobacco Use Comment F acamelia Dec 19, 2020 12:07 PM VA-TOBACCO QUIT 5 TO < 15 YRS [facility] Aug 02, 2015 09:49 AM CURRENT TOBACCO USER [facility] Jun 06, 2014 08:51 AM CURRENT TOBACCO USER [facility] May 04, 2013 09:29 AM CURRENT TOBACCO USER [facility] Apr 24, 2012 07:40 AM CURRENT TOBACCO USER [facility] Advance Directives: All historical and current Section Date Range: From patient's date of to the date document was created. This section includes ALL of a patient's completed or amended [place] Advance and Rescinded Directives. The entries below indicate that a directive exists for the patient, but an actual copy is not included with this document. The data comes from all [facility]. Date Advance Directives Provider Source Jan 02, 2023 STATE-AUTHORIZED PORTABLE ORDERS [facility] Encounter Notes: All associated encounter notes This section contains the clinical notes associated to the Encounter. Date/Time Encounter Note(s) Provider Source Nov 05, 2023 01:53 PM ADDENDUM: LOCAL TITLE: Addendum STANDARD TITLE: ADDENDUM DATE OF NOTE: NOV 05, 2023@13:53:13 ENTRY DATE: NOV 05, 2023@13:53:14 AUTHOR: GELACIO MICHEL EXP COSIGNER: URGENCY: STATUS: COMPLETED To electrophysiology-clarify metoprolol dose /es/ MANDY MARIE DNP Signed: 11/05/2023 13:53 Receipt Acknowledged By: 12/16/2023 13:22 /es/ HITESH HOLGUIN CNP, [employer] Electrophysiology Nurse Practitioner --- Original Document --- 10/07/23 CARDIOLOGY ELECTROPHYSIOLOGY NOTE: cc: afib, Dofetilide f/u HPI: Patient is a 73 year old male with a history of persistent atrial fibrillation (on apixaban) s/p unsuccessful DCCV (01/22/23), HFpEF 55-60% (TTE 09/2022), HTN, DM2, severe COPD, morbid obesity, lipodermatosclerosis/bilat venous stasis edema, chronic back pain/lumbar spondylosis s/p laminectomy L2-4 (1999), DJD/OA bilateral hips mod/severe, bilateral foot pain and psoriasis. Pt was diagnosed with afib on 10/28/22 in the context of sepsis 2/2 cellulitis, w/HFpEF exacerbation and COVID-19 infection. TTE (10/29/22) EF was 55-60% w/grade 1 diastolic dysfunction, echo quality was suboptimal so there was no LA/RA or LVH measurements available. Pt initially just wanted to try a DCCV, it was attempted (01/22/23) and was unsuccessful. He was admitted for Dofetilide loading on 07/07/23, it was started at 500 mcg twice daily; however, after the second dose he developed QTc prolongation. Dofetilide was decreased to 250 mcg BID. He was successfully cardioverted after his fourth dose. He received a single shock at 300 J, and has remained in sinus rhythm. QTc remained stable. [facility] presents to [facility] today for f/u. He states that he feels ok. He doesn't have endurance for anything, [facility] He uses a walker to get around his house and is short of breath with minimal activity. He does think that he is sleeping better since starting the Dofetildie, he doesn't feel like he is going to when he is sleeping anymore. He notices that his weight fluctuates a lot depending on the day. He occasionally has some dietary indescretions but not often. He's lost 57 lbs on semaglutide and would like to lose another 130 lbs. ROS: 12 point review of systems negative for acute issues except as noted in HPI. PMHx: Persistent atrial fibrillation - on apixaban - dx 10/28/22, had RVR in the context of sepsis 2/2 cellulitis, HFpEF exacerbation and a COVID-19 infection HFpEF - EF 55-60% (TTE 09/2022) w/ grade 1 diastolic dysfunction HTN DM2 BPH COPD lung nodules morbid obesity Lipodermatosclerosis bilat venous stasis edema Chronic back pain/lumbar spondylosis - s/p laminectomy L2-4 (1999) DJD/OA - CT 06/08/2016; bilateral hips mod/severe Bilateral foot pain Psoriasis PSHx: *Tobacco - quit 15 years ago, smoked approx 25 years, 1.5 ppd avg *ETOH - quit drinking 2 years ago, used to drink heavily, 1.75 L vodka/week *Illicits - smokes pot 2 times/week *Drinks 2 large cups of coffee/day FHx: Father - @ 81 yo, COPD, CAD Mother - @ 71 yo, breast cancer Brother - @ 49 yo, heart disease Sister - alive @ 75 yo, healthy 4 children, healthy PRIOR CARDIAC TESTING - 1-week [employer] Event monitor (01/22-01/28/2023) 4 days and 2 hours of analyzable recording INDICATION: afib rate control HEART RATE (beats/minute) Minimum 57 bpm Average 98 bpm Maximum 164 bpm PAC PVC less than 1% INTERPRETATION Atrial fibrillation. The average ventricular rate was 98 bpm. Ventricular rate was was greater than 110 bpm 15% of the day and 3% of the night. There were 4 triggered episodes but the symptoms were not specified. The associated rhythm strips showed atrial fibrillation with rates ranging from 87 to 112 bpm. - CLAUS (07/07/23): Interpretation Summary The left ventricular systolic function is normal. The visually estimated ejection fraction is 55-60%. The left ventricular wall thickness appeared normal. Mild to moderate tricuspid regurgitation. Moderate biatrial enlargement. There is severe interatrial septal hypertrophy. A Chiari network is seen in the right atrium. The rhythm is atrial fibrillation. - TTE (10/29/22): Interpretation Summary 1. Techincally difficult study with poor echo windows and limited information. Patient in AF which prevents accurate evaluation. LVO was used with some improvement 2. LV ejection fraction is 55-60%. The left ventricular wall motion is normal. Cannot assess diastolic function. Cannot assess LV size. 3. The right ventricular systolic function is normal. Cannot assess RV size. 4. Mild tricupsid regurgitation. 5. Cannot assess mitral, aortic and and pulmonic valves. 7. No prior echo for comparison. - TTE (03/07/21): Interpretation Summary A complete two-dimensional transthoracic echocardiogram (63811) was performed with contrast (Q9957). Study quality is technically difficult. The left ventricular systolic function is normal. The visually estimated ejection fraction is 60-65%. Grade I diastolic dysfunction, (abnormal relaxation pattern). The right ventricle is not well visualized. The inferior vena cava was not visualized during the exam. There is trivial tricuspid regurgitation. Estimated RVSP 34mmHg + right atrial pressure - EKGs (10/07/23): Sinus tachycardia @ 106 bpm QRS: 80 msec, QT/QTc: 320/425 msec (01/22/23): Afib @ 99 bpm (01/22/23): Afib w/RVR @ 106 bpm (12/12/22): Afib w/RVR @ 102 bpm (10/28/22): Afib w/RVR @ 127 bpm (10/28/22): Afib w/RVR @ 148 bpm (06/04/22): NSR w/ PACs @ 75 bpm Allergies: Patient has answered NKA Medications: Outpatient Medications Status 1) A & D OINT APPLY LIBERALLY TO GROIN AND BUTTOCKS ACTIVE TOPICALLY DIRECTED INTERTRIGO 2) ACETAMINOPHEN 500MG TAB TAKE TWO TABLETS BY MOUTH ACTIVE THREE TIMES A DAY FOR PAIN *NOT TO EXCEED 4000MG IN 24 HOURS FROM ALL SOURCES* 3) APIXABAN 5MG TAB TAKE ONE TABLET BY MOUTH EVERY 12 ACTIVE HOURS TO TREAT AND/OR PREVENT BLOOD CLOTS 4) DICLOFENAC NA 1% TOP GEL APPLY 2 GRAMS TOPICALLY TWO ACTIVE TIMES A DAY NEEDED FOR PAIN -USE DOSE CARD IN BOX TO MEASURE DOSE -MAXIMUM OF 32 GM PER DAY 5) DIMETHICONE 12.5% TOP CREAM APPLY AFFECTED AREA ACTIVE TOPICALLY THREE TIMES A WEEK 6) DOFETILIDE 250MCG CAP TAKE ONE CAPSULE BY MOUTH TWICE ACTIVE A DAY FOR ATRIAL FIBRILLATION 7) EMPAGLIFLOZIN 25MG TAB TAKE ONE-HALF TABLET BY MOUTH ACTIVE EVERY MORNING FOR HEART FAILURE 8) FLUTICASONE PROP 50MCG 120D NASAL INHL SPRAY 2 SPRAYS ACTIVE IN EACH NOSTRIL EVERY DAY FOR NASAL DRIP 9) FUROSEMIDE 40MG TAB TAKE TWO TABLETS BY MOUTH EVERY ACTIVE MORNING FOR EXCESS FLUID FOR WEIGHT GAIN OR WORSENING HEART FAILURE SYMPTOMS 10) GABAPENTIN 400MG CAP TAKE ONE CAPSULE BY MOUTH FOUR ACTIVE TIMES A DAY FOR PAIN AND NUMBNESS 11) GUAIFENESIN 200MG TAB TAKE TWO TABLETS BY MOUTH THREE ACTIVE TIMES A DAY FOR COPD/COUGH/MUCUS 12) HYDROPHILIC (EQV AQUAPHOR) TOP OINT APPLY SMALL ACTIVE AMOUNT TOPICALLY THREE TIMES A WEEK FOR DRY SKIN 13) LIDOCAINE 5% PATCH APPLY 3 PATCHES TOPICALLY EVERY ACTIVE DAY FOR PAIN. WEAR FOR ONLY 12 HOURS THEN REMOVE FOR 12 HOURS. ONE PATCH FOR EACH HIP AND ONE PATCH FOR LOW BACK 14) LOSARTAN 50MG TAB TAKE ONE TABLET BY MOUTH EVERY ACTIVE MORNING FOR HEART FAILURE 15) NYSTATIN 667402 UNT/GM CREAM APPLY THIN LAYER ACTIVE TOPICALLY TWICE A DAY FUNGAL INFECTION EXTERNAL USE ONLY APPLY TO PANNUS 16) POTASSIUM CL 20MEQ SA TAB (DISPERSIBLE) TAKE TWO ACTIVE TABLETS BY MOUTH TWICE A DAY FOR POTASSIUM SUPPLEMENT 17) SEMAGLUTIDE 2MG/0.75ML INJ PEN 3ML INJECT 2MG UNDER ACTIVE THE SKIN EVERY WEEK FOR DIABETES 18) SPIRONOLACTONE 25MG TAB TAKE ONE TABLET BY MOUTH ACTIVE (S) EVERY DAY FOR HEART FAILURE 19) TAZAROTENE 0.1% TOP CREAM APPLY THIN LAYER TOPICALLY ACTIVE AT BEDTIME TO THE FEET WITH THE 40% UREA CREAM, UNDER OCCLUSION DIRECTED 20) TRAZODONE HCL 50MG TAB TAKE ONE TABLET BY MOUTH AT ACTIVE BEDTIME FOR SLEEP 21) TRIAMCINOLONE ACETONIDE 0.1% OINT APPLY THIN LAYER ACTIVE TOPICALLY TWICE A DAY AVOID FACE,GROIN & ARMPITS *FOR EXTERNAL USE ONLY APPLY TO INTACT SKIN ON LOWER LEGS AFTER DILUTE VINEGAR OR VASHE SOAKS. WRAP WITH KERLIX. 22) UREA 40% CREAM APPLY THIN LAYER TOPICALLY EVERY DAY ACTIVE DIRECTED FOR THICK SKIN 23) VANICREAM TOP CREAM APPLY THIN LAYER TOPICALLY EVERY ACTIVE DAY IDEALLY WITHIN 3 MINUTES AFTER BATH OR SHOWER. TO ALL AREAS OF SKIN FOR MOISTURIZER FOR DRY SKIN 24) ZINC OXIDE 20% OINT APPLY SMALL AMOUNT TOPICALLY ACTIVE THREE TIMES A WEEK NEEDED FOR WOUND PREVENTION Non-VA Medications Status 1) Non-VA KETOCONAZOLE SHAMPOO 2%SHAMPOO TOPICALLY ACTIVE 2) Non-VA LIDOCAINE 5% PATCH 1 PATCH TOPICALLY ACTIVE 26 Total Medications Vital Signs: Temperature: 98.4 F [36.9 C] (08/13/2023 11:00) Blood Pressure: 116/74 (10/07/2023 13:03) Pulse: 81 (08/13/2023 11:00) Respiration: 18 (08/13/2023 11:00) Pain: 0 (08/13/2023 11:00) Pulse Oximetry: 95% (08/13/2023 11:00) Weight: 360 lb [163.29 kg] (10/07/2023 13:03) - Labs (10/07/23): Test Name Result Units Range --------- ------ ----- ----- SODIUM 138 mmol/L 136 - 145 POTASSIUM 3.8 mmol/L 3.5 - 5.1 CHLORIDE 98 mmol/L 98 - 107 CO2 28 mmol/L 22 - 29 ANION GAP 12 mmol/L 5 - 15 GLUCOSE 123 H mg/dL 70 - 100 UREA NITROGEN 25 mg/dL 8 - 26 CREATININE 1.2 mg/dL 0.7 - 1.2 CALCIUM 9.8 mg/dL 8.4 - 10.2 MAGNESIUM 2.3 mg/dL 1.6 - 2.6 .CREAT EGFR(CKD-EPI) 63 Ref: >=60 PE: GA: very pleasant, well-appearing, male in NAD; Lungs: CTAB, no crackles, wheezes, or rhonchi CV: RRR; no murmurs, rubs, or gallops; no JVD Abd: BS (+); protuberant, soft, nontender Ext: no edema Neuro: AOx4; no focal deficits; using a scooter A/P: * newly diagnosed persistent afib - diagnosed on 10/28/22 in the context of sepsis 2/2 cellulitis, w/HFpEF exacerbation and COVID-19 infection. All could have certainly contributed to his developing afib and certainly would contribute to RVR. - TTE (10/29/22) EF was 55-60% w/grade 1 diastolic dysfunction, echo quality was suboptimal so there was no LA/RA measurements available. - he reports feeling short of breath w/minimal activity but has severe COPD, morbid obesity and HFpEF which could all be contributing to his shortness of breath. - EKGs show poorly controlled ventricular rates in afib, EKG today is afib w/RVR @ 102 bpm - He is taking metoprolol succinate 100 mg qHHS, will increase to metoprolol succinate 75 mg BID in hopes of better rate control - pt referred from HF for rhythm control. He wanted an attempt at rhythm control, he preferred to try DCCV w/o AADs first, since afib was only dx in October (again, may have been present for longer). DCCV on 01/22/23 was unsuccessful. - he was admitted for Dofetilide loading from 07/07-07/10/2023. He had QTc prolongation after the second dose so his Dofetilide was decreased to 250 mcg BID. He had a successful DCCV after the 4th dose. *Dofetilide monitoring - Dofetilide 250 mcg BID - EKG today is sinus tachycardia @ 106 bpm QRS: 80 msec, QT/QTc: 320/425 msec - creat is 1.2, K/mag WNL - he reports compliance and is not on any contraindicated Rx * CVA prophylaxis - pt is taking apixaban 5 mg BID for CVA prophylaxis - CHADS-VASc score is 4 d/t HF, HTN, age, DM. - He denies bleeding issue and reports no missed doses since October * HFpEF - diagnosed in 10/2022, pt thinks he's had it for longer. TTE (10/2022) EF 55- 60%, unable to assess diastolic dysfunction. - he is currently following w/HF clinic and has chronic LE edema - he is currently taking empagliflozin 12.5 mg qday, furosemide 80 mg qday, losartan 50 mg qday, and spironolactone 25 mg qday. * f/u - in 3 months in [facility] with labs and EKG for Dofetilide monitoring I spent a total of 40+ minutes between preparation, review of testing, discussion with patient and documentation of encounter /es/ HITESH HOLGUIN, ANDI, [employer] Electrophysiology Nurse Practitioner Signed: 10/08/2023 11:48 MELITA MICHEL I [facility] Oct 07, 2023 01:57 PM CARDIOLOGY DIAGNOSTIC STUDY NOTE: LOCAL TITLE: CARDIOLOGY ELECTROPHYSIOLOGY NOTE STANDARD TITLE: CARDIOLOGY DIAGNOSTIC STUDY NOTE DATE OF NOTE: OCT 07, 2023@13:57 ENTRY DATE: OCT 07, 2023@13:57:49 AUTHOR: HITESH HOLGUIN EXP COSIGNER: URGENCY: STATUS: COMPLETED CARDIOLOGY ELECTROPHYSIOLOGY NOTE Has ADDENDA cc: afib, Dofetilide f/u HPI: Patient is a 73 year old male with a history of persistent atrial fibrillation (on apixaban) s/p unsuccessful DCCV (01/22/23), HFpEF 55-60% (TTE 09/2022), HTN, DM2, severe COPD, morbid obesity, lipodermatosclerosis/bilat venous stasis edema, chronic back pain/lumbar spondylosis s/p laminectomy L2-4 (1999), DJD/OA bilateral hips mod/severe, bilateral foot pain and psoriasis. Pt was diagnosed with afib on 10/28/22 in the context of sepsis 2/2 cellulitis, w/HFpEF exacerbation and COVID-19 infection. TTE (10/29/22) EF was 55-60% w/grade 1 diastolic dysfunction, echo quality was suboptimal so there was no LA/RA or LVH measurements available. Pt initially just wanted to try a DCCV, it was attempted (01/22/23) and was unsuccessful. He was admitted for Dofetilide loading on 07/07/23, it was started at 500 mcg twice daily; however, after the second dose he developed QTc prolongation. Dofetilide was decreased to 250 mcg BID. He was successfully cardioverted after his fourth dose. He received a single shock at 300 J, and has remained in sinus rhythm. QTc remained stable. He presents to [facility] today for f/u. He states that he feels ok. He doesn't have endurance for anything, [facility] He uses a walker to get around his house and is short of breath with minimal activity. He does think that he is sleeping better since starting the Dofetildie, he doesn't feel like he is going to when he is sleeping anymore. He notices that his weight fluctuates a lot depending on the day. He occasionally has some dietary indescretions but not often. He's lost 57 lbs on semaglutide and would like to lose another 130 lbs. ROS: 12 point review of systems negative for acute issues except as noted in HPI. PMHx: Persistent atrial fibrillation - on apixaban - dx 10/28/22, had RVR in the context of sepsis 2/2 cellulitis, HFpEF exacerbation and a COVID-19 infection HFpEF - EF 55-60% (TTE 09/2022) w/ grade 1 diastolic dysfunction HTN DM2 BPH COPD lung nodules morbid obesity Lipodermatosclerosis bilat venous stasis edema Chronic back pain/lumbar spondylosis - s/p laminectomy L2-4 (1999) DJD/OA - CT 06/08/2016; bilateral hips mod/severe Bilateral foot pain Psoriasis PSHx: *Tobacco - quit 15 years ago, smoked approx 25 years, 1.5 ppd avg *ETOH - quit drinking 2 years ago, used to drink heavily, 1.75 L vodka/week *Illicits - smokes pot 2 times/week *Drinks 2 large cups of coffee/day FHx: Father - @ 81 yo, COPD, CAD Mother - @ 71 yo, breast cancer Brother - @ 49 yo, heart disease Sister - alive @ 75 yo, healthy 4 children, healthy PRIOR CARDIAC TESTING - 1-week [employer] Event monitor (01/22-01/28/2023) 4 days and 2 hours of analyzable recording INDICATION: afib rate control HEART RATE (beats/minute) Minimum 57 bpm Average 98 bpm Maximum 164 bpm PAC PVC less than 1% INTERPRETATION Atrial fibrillation. The average ventricular rate was 98 bpm. Ventricular rate was was greater than 110 bpm 15% of the day and 3% of the night. There were 4 triggered episodes but the symptoms were not specified. The associated rhythm strips showed atrial fibrillation with rates ranging from 87 to 112 bpm. - CLAUS (07/07/23): Interpretation Summary The left ventricular systolic function is normal. The visually estimated ejection fraction is 55-60%. The left ventricular wall thickness appeared normal. Mild to moderate tricuspid regurgitation. Moderate biatrial enlargement. There is severe interatrial septal hypertrophy. A Chiari network is seen in the right atrium. The rhythm is atrial fibrillation. - TTE (10/29/22): Interpretation Summary 1. Techincally difficult study with poor echo windows and limited information. Patient in AF which prevents accurate evaluation. LVO was used with some improvement 2. LV ejection fraction is 55-60%. The left ventricular wall motion is normal. Cannot assess diastolic function. Cannot assess LV size. 3. The right ventricular systolic function is normal. Cannot assess RV size. 4. Mild tricupsid regurgitation. 5. Cannot assess mitral, aortic and and pulmonic valves. 7. No prior echo for comparison. - TTE (03/07/21): Interpretation Summary A complete two-dimensional transthoracic echocardiogram (23049) was performed with contrast (Q9957). Study quality is technically difficult. The left ventricular systolic function is normal. The visually estimated ejection fraction is 60-65%. Grade I diastolic dysfunction, (abnormal relaxation pattern). The right ventricle is not well visualized. The inferior vena cava was not visualized during the exam. There is trivial tricuspid regurgitation. Estimated RVSP 34mmHg + right atrial pressure - EKGs (10/07/23): Sinus tachycardia @ 106 bpm QRS: 80 msec, QT/QTc: 320/425 msec (01/22/23): Afib @ 99 bpm (01/22/23): Afib w/RVR @ 106 bpm (12/12/22): Afib w/RVR @ 102 bpm (10/28/22): Afib w/RVR @ 127 bpm (10/28/22): Afib w/RVR @ 148 bpm (06/04/22): NSR w/ PACs @ 75 bpm Allergies: Patient has answered NKA Medications: Outpatient Medications Status 1) A & D OINT APPLY LIBERALLY TO GROIN AND BUTTOCKS ACTIVE TOPICALLY DIRECTED INTERTRIGO 2) ACETAMINOPHEN 500MG TAB TAKE TWO TABLETS BY MOUTH ACTIVE THREE TIMES A DAY FOR PAIN *NOT TO EXCEED 4000MG IN 24 HOURS FROM ALL SOURCES* 3) APIXABAN 5MG TAB TAKE ONE TABLET BY MOUTH EVERY 12 ACTIVE HOURS TO TREAT AND/OR PREVENT BLOOD CLOTS 4) DICLOFENAC NA 1% TOP GEL APPLY 2 GRAMS TOPICALLY TWO ACTIVE TIMES A DAY NEEDED FOR PAIN -USE DOSE CARD IN BOX TO MEASURE DOSE -MAXIMUM OF 32 GM PER DAY 5) DIMETHICONE 12.5% TOP CREAM APPLY AFFECTED AREA ACTIVE TOPICALLY THREE TIMES A WEEK 6) DOFETILIDE 250MCG CAP TAKE ONE CAPSULE BY MOUTH TWICE ACTIVE A DAY FOR ATRIAL FIBRILLATION 7) EMPAGLIFLOZIN 25MG TAB TAKE ONE-HALF TABLET BY MOUTH ACTIVE EVERY MORNING FOR HEART FAILURE 8) FLUTICASONE PROP 50MCG 120D NASAL INHL SPRAY 2 SPRAYS ACTIVE IN EACH NOSTRIL EVERY DAY FOR NASAL DRIP 9) FUROSEMIDE 40MG TAB TAKE TWO TABLETS BY MOUTH EVERY ACTIVE MORNING FOR EXCESS FLUID FOR WEIGHT GAIN OR WORSENING HEART FAILURE SYMPTOMS 10) GABAPENTIN 400MG CAP TAKE ONE CAPSULE BY MOUTH FOUR ACTIVE TIMES A DAY FOR PAIN AND NUMBNESS 11) GUAIFENESIN 200MG TAB TAKE TWO TABLETS BY MOUTH THREE ACTIVE TIMES A DAY FOR COPD/COUGH/MUCUS 12) HYDROPHILIC (EQV AQUAPHOR) TOP OINT APPLY SMALL ACTIVE AMOUNT TOPICALLY THREE TIMES A WEEK FOR DRY SKIN 13) LIDOCAINE 5% PATCH APPLY 3 PATCHES TOPICALLY EVERY ACTIVE DAY FOR PAIN. WEAR FOR ONLY 12 HOURS THEN REMOVE FOR 12 HOURS. ONE PATCH FOR EACH HIP AND ONE PATCH FOR LOW BACK 14) LOSARTAN 50MG TAB TAKE ONE TABLET BY MOUTH EVERY ACTIVE MORNING FOR HEART FAILURE 15) NYSTATIN 083098 UNT/GM CREAM APPLY THIN LAYER ACTIVE TOPICALLY TWICE A DAY FUNGAL INFECTION EXTERNAL USE ONLY APPLY TO PANNUS 16) POTASSIUM CL 20MEQ SA TAB (DISPERSIBLE) TAKE TWO ACTIVE TABLETS BY MOUTH TWICE A DAY FOR POTASSIUM SUPPLEMENT 17) SEMAGLUTIDE 2MG/0.75ML INJ PEN 3ML INJECT 2MG UNDER ACTIVE THE SKIN EVERY WEEK FOR DIABETES 18) SPIRONOLACTONE 25MG TAB TAKE ONE TABLET BY MOUTH ACTIVE (S) EVERY DAY FOR HEART FAILURE 19) TAZAROTENE 0.1% TOP CREAM APPLY THIN LAYER TOPICALLY ACTIVE AT BEDTIME TO THE FEET WITH THE 40% UREA CREAM, UNDER OCCLUSION DIRECTED 20) TRAZODONE HCL 50MG TAB TAKE ONE TABLET BY MOUTH AT ACTIVE BEDTIME FOR SLEEP 21) TRIAMCINOLONE ACETONIDE 0.1% OINT APPLY THIN LAYER ACTIVE TOPICALLY TWICE A DAY AVOID FACE,GROIN & ARMPITS *FOR EXTERNAL USE ONLY APPLY TO INTACT SKIN ON LOWER LEGS AFTER DILUTE VINEGAR OR VASHE SOAKS. WRAP WITH KERLIX. 22) UREA 40% CREAM APPLY THIN LAYER TOPICALLY EVERY DAY ACTIVE DIRECTED FOR THICK SKIN 23) VANICREAM TOP CREAM APPLY THIN LAYER TOPICALLY EVERY ACTIVE DAY IDEALLY WITHIN 3 MINUTES AFTER BATH OR SHOWER. TO ALL AREAS OF SKIN FOR MOISTURIZER FOR DRY SKIN 24) ZINC OXIDE 20% OINT APPLY SMALL AMOUNT TOPICALLY ACTIVE THREE TIMES A WEEK NEEDED FOR WOUND PREVENTION Non-VA Medications Status 1) Non-VA KETOCONAZOLE SHAMPOO 2%SHAMPOO TOPICALLY ACTIVE 2) Non-VA LIDOCAINE 5% PATCH 1 PATCH TOPICALLY ACTIVE 26 Total Medications Vital Signs: Temperature: 98.4 F [36.9 C] (08/13/2023 11:00) Blood Pressure: 116/74 (10/07/2023 13:03) Pulse: 81 (08/13/2023 11:00) Respiration: 18 (08/13/2023 11:00) Pain: 0 (08/13/2023 11:00) Pulse Oximetry: 95% (08/13/2023 11:00) Weight: 360 lb [163.29 kg] (10/07/2023 13:03) - Labs (10/07/23): Test Name Result Units Range --------- ------ ----- ----- SODIUM 138 mmol/L 136 - 145 POTASSIUM 3.8 mmol/L 3.5 - 5.1 CHLORIDE 98 mmol/L 98 - 107 CO2 28 mmol/L 22 - 29 ANION GAP 12 mmol/L 5 - 15 GLUCOSE 123 H mg/dL 70 - 100 UREA NITROGEN 25 mg/dL 8 - 26 CREATININE 1.2 mg/dL 0.7 - 1.2 CALCIUM 9.8 mg/dL 8.4 - 10.2 MAGNESIUM 2.3 mg/dL 1.6 - 2.6 .CREAT EGFR(CKD-EPI) 63 Ref: >=60 PE: GA: very pleasant, well-appearing, male in NAD; Lungs: CTAB, no crackles, wheezes, or rhonchi CV: RRR; no murmurs, rubs, or gallops; no JVD Abd: BS (+); protuberant, soft, nontender Ext: no edema Neuro: AOx4; no focal deficits; using a scooter A/P: * newly diagnosed persistent afib - diagnosed on 10/28/22 in the context of sepsis 2/2 cellulitis, w/HFpEF exacerbation and COVID-19 infection. All could have certainly contributed to his developing afib and certainly would contribute to RVR. - TTE (10/29/22) EF was 55-60% w/grade 1 diastolic dysfunction, echo quality was suboptimal so there was no LA/RA measurements available. - he reports feeling short of breath w/minimal activity but has severe COPD, morbid obesity and HFpEF which could all be contributing to his shortness of breath. - EKGs show poorly controlled ventricular rates in afib, EKG today is afib w/RVR @ 102 bpm - He is taking metoprolol succinate 100 mg qHHS, will increase to metoprolol succinate 75 mg BID in hopes of better rate control - pt referred from HF for rhythm control. He wanted an attempt at rhythm control, he preferred to try DCCV w/o AADs first, since afib was only dx in October (again, may have been present for longer). DCCV on 01/22/23 was unsuccessful. - he was admitted for Dofetilide loading from 07/07-07/10/2023. He had QTc prolongation after the second dose so his Dofetilide was decreased to 250 mcg BID. He had a successful DCCV after the 4th dose. *Dofetilide monitoring - Dofetilide 250 mcg BID - EKG today is sinus tachycardia @ 106 bpm QRS: 80 msec, QT/QTc: 320/425 msec - creat is 1.2, K/mag WNL - he reports compliance and is not on any contraindicated Rx * CVA prophylaxis - pt is taking apixaban 5 mg BID for CVA prophylaxis - CHADS-VASc score is 4 d/t HF, HTN, age, DM. - He denies bleeding issue and reports no missed doses since October * HFpEF - diagnosed in 10/2022, pt thinks he's had it for longer. TTE (10/2022) EF 55- 60%, unable to assess diastolic dysfunction. - he is currently following w/HF clinic and has chronic LE edema - he is currently taking empagliflozin 12.5 mg qday, furosemide 80 mg qday, losartan 50 mg qday, and spironolactone 25 mg qday. * f/u - in 3 months in [facility] with labs and EKG for Dofetilide monitoring I spent a total of 40+ minutes between preparation, review of testing, discussion with patient and documentation of encounter /mateo/ HITESH HOLGUIN CNP, MANDY Electrophysiology Nurse Practitioner Signed: 10/08/2023 11:48 11/05/2023 ADDENDUM STATUS: COMPLETED To electrophysiology-clarify metoprolol dose /es/ MANDY MARIE DNP Signed: 11/05/2023 13:53 Receipt Acknowledged By: 12/16/2023 13:22 /nacho HOLGUIN CNP, MANDY Electrophysiology Nurse Practitioner 12/16/2023 ADDENDUM STATUS: COMPLETED Clarification to above: *afib - pt was previously on metoprolol, this was d/c'd when he was admitted for Dofetilide loading. /nacho HOLGUIN CNP, [employer] Electrophysiology Nurse Practitioner Signed: 12/16/2023 13:26 HITESH HOLGUIN [facility] Oct 07, 2023 01:04 PM INTERNAL MEDICINE OUTPATIENT NOTE: LOCAL TITLE: MEDICINE CLINIC NURSING NOTE STANDARD TITLE: INTERNAL MEDICINE OUTPATIENT NOTE DATE OF NOTE: OCT 07, 2023@13:04 ENTRY DATE: OCT 07, 2023@13:04:27 AUTHOR: CLIFFORD PRETTY EXP COSIGNER: URGENCY: STATUS: COMPLETED TYPE OF VISIT: Appointment Check In Type of appointment: In-person appointment REASON FOR VISIT: cardiac visit ALLERGIES: Patient has answered NKA VITAL SIGNS: Blood Pressure: 116/74 (10/07/2023 13:03) Pulse: 81 (08/13/2023 11:00) Respiration: 18 (08/13/2023 11:00) Temperature: 98.4 F [36.9 C] (08/13/2023 11:00) Weight: 360 lb [163.29 kg] (10/07/2023 13:03) Height: 76 in [193.0 cm] (07/02/2023 13:54) BMI: 43.9 O2 Sat: 95% (08/13/2023 11:00) Pain: 0 (08/13/2023 11:00) [place] declination of of vital signs monitoring today secondary to daily remote blood pressure and weight monitoring. PAIN SCREEN: Patient is not having significant pain that they wish to discuss with their provider today. MEDICATION Over the Counter/Herbal Medications: The patient denies taking any outside medications or herbals. /mateo/ CLIFFORD PRETTY LPN LICENSED PRACTICAL NURSE Signed: 10/07/2023 13:05 [facility]ORD PRETTY [facility]
--- OUTSIDE RECORDS SUMMARY | 2024-03-25 10:36 | XMS_ITS | Encounter Summary ---
Author Name [facility] [place] Address [address] [place] [id number] Care Team Providers Care Head Of Measurement & Insights Name Role Phone GELACIO MICHEL Primary Care [...] PART A Jul 21, 2014 PART A [id number] [phone] Miguelito CARRILLO PATIENT Selected Encounter This section includes the information on record at [place] for the Encounter. Date/Time Encounter Type Encounter Description Reason Provider Source Nov 05, 2023 01:30 PM IMMUNIZATION ADMIN PRIMARY CARE/MEDICINE ICD-10-CM Z00.01 Encounter for general adult medical exam w abnormal findings NALLUSAMY,VAS VICKIATHI IHE Encounter Template Text not used by PA Assessments - Encounter Diagnoses This section includes the primary and secondary diagnoses documented for the Encounter. Date/Time Primary/Secondary Diagnosis Diagnosis Name Provider Source Nov 05, 2023 02:53 PM PRIMARY Encounter for general adult medical exam w abnormal findings [facility] Nov 05, 2023 02:53 PM SECONDARY Anxiety disorder, unspecified NALLUSAMY,JUAN MAGALLONHarshal [facility] Nov 05, 2023 02:53 PM SECONDARY Chronic diastolic (congestive) heart failure NALLUSAMY,JUAN EDNA HANEYPEE [facility] Nov 05, 2023 02:53 PM SECONDARY Chronic obstructive pulmonary disease, unspecified NALLUSAMY,JUAN [facility] Nov 05, 2023 02:53 PM SECONDARY Chronic systolic (congestive) heart failure NALLUSAMY,JUANJean Paul [facility] Nov 05, 2023 02:53 PM SECONDARY Chronic venous htn w inflammation of bilateral low extrm NALLUSAMY,JUANJean Paul MAGALLONI [facility] Nov 05, 2023 02:53 PM SECONDARY Dependence on wheelchair NALLUSAMY,JUAN [facility] [facility] Nov 05, 2023 02:53 PM SECONDARY Dermatitis, unspecified NALLUSAMY,JUAN [place] [facility] Nov 05, 2023 02:53 PM SECONDARY Dyspnea, unspecified NALLUSAMY,JUAN HANEYPEE [facility] Nov 05, 2023 02:53 PM SECONDARY Edema, unspecified NALLUSAMY,JUAN MAGALLONI [facility] Nov 05, 2023 02:53 PM SECONDARY Encounter for immunization GEBREKIRSTOS,A PATY E [facility] Nov 05, 2023 02:53 PM SECONDARY Eosinophilic asthma NALLUSAMY,JUNA [facility] Nov 05, 2023 02:53 PM SECONDARY Gastro-esophageal reflux disease without esophagitis NALLUSAMY,JUAN HANEYPEE [facility] Nov 05, 2023 02:53 PM SECONDARY Heart failure, unspecified NALLUSAMY,JUAN MATHI [facility] Nov 05, 2023 02:53 PM SECONDARY Obesity, unspecified NALLUSAMY,JUAN MATHI [facility] Plan of Treatment: Future Appointments (+ 6 months) and Future Tests (+/- 45 days) The Plan of Treatment section includes future care activities for the patient from all [place] treatmentfacilities. This section includes future appointments and future orders which are active, pending or scheduled. Future Appointments This section includes appointments that were scheduled to occur 6 months from the date of the Encounter, up to a maximum of 20 appointments. The data comes from all [facility]. Appointment Date/Time Appointment Type Appointme nt Facility Name December 01, 2023 12:30 PM AMBULATORY - SURGERY [facility] December 07, 2023 07:00 AM AMBULATORY - NONE [facility] Dec 25, 2023 02:20 PM AMBULATORY - SURGERY [facility] Dec 25, 2023 02:45 PM AMBULATORY - SURGERY [facility] Dec 30, 2023 01:30 PM AMBULATORY - SURGERY [facility] Jan 06, 2024 12:30 PM [facility] Jan 06, 2024 01:00 PM [facility] [place] Jan 06, 2024 02:00 PM [facility] Jan 06, 2024 02:45 PM [facility] [place] Jan 08, 2024 07:45 PM AMBULATORY - NONE [facility] Jan 12, 2024 01:15 PM AMBULATORY - SURGERY [facility] Jan 13, 2024 03:00 PM AM[facility]ORY - NONE [facility] Jan 21, 2024 11:30 AM [facility] Feb 04, 2024 01:30 PM [facility]ORY [facility] [place] Feb 04, 2024 02:30 PM [facility]ORY [facility] [place] [facility] Feb 11, 2024 02:30 [facility] Feb 12, 2024 12:30 PM AMBULATORY - NONE [facility] Feb 12, 2024 01:30 PM AMBULATORY - SURGERY [facility] Feb 12, 2024 03:00 PM AMBULATORY - SURGERY [facility] Feb 19, 2024 02:15 PM [facility] Active, Pending, and Scheduled Orders This section includes a listing of several types of active, pending, and scheduled orders, including clinic medications orders, diagnostic test orders, procedure orders and consult orders; where the start date of the order is 45 days before the date of the Encounter or 45 days after the date of theEncounter. The data comes from all [facility]. Test Date/Time Test Type Test Details Facility Name Sep 29, 2023 12:00 AM Laboratory - Chemi stry Order BASIC METABOLIC PANEL+MG PLASMA SP ONCE [facility] Nov 05, 2023 12:00 AM Laboratory - Chemi stry Order OCCULT BLOOD FIT X1 SCREEN STOOL FECES SP ONCE [facility] Lab Results: +/- 30 days of the encounter This section includes the Chemistry and Hematology Lab Results on record with PA for the patient. Radiology Reports and Pathology Reports are provided separately, in subsequent sections. Lab Results This section contains the Chemistry/Hematology Results that were resulted 30 days before or 30 daysafter the date of the Encounter. Date/Time Source Result Type Result - Unit Interpretation Reference Range Comment Oct 07, 2023 11:36 AM [facility] BASIC METABOLIC PANEL+MG Specimen Type: PLASMA No comment entered. Ordering Provider: HITESH HOLGUIN Report Released Date/Time: Jul 21, 2023 11:36 AM Reporting Lab: [facility] [id number] Performing Lab: [facility] [id number] CREATININE 1.2 mg/dL 0.7-1.2 UREA NITROGEN 25 [...] Pain Height Weight Body Mass Index Source Nov 05, 2023 01:28 PM 97.8 85 125/76 16 95 2 360 44 [facility] Immunizations: All administered on the encounter date This section contains immunizations associated to the Encounter. Immunization Series Date Issued Reaction Comments TDAP Nov 05, 2023 Social History: Smoking Status (Most current) and Tobacco Use (All prior to encounter date) This section includes the most current, and the historical, smoking and tobacco- related health factors from the [place] facility where the Encounter took place. Current Smoking Status This section includes the most current smoking, or tobacco-related health factor, from the [place] facility where the Encounter took place. Date/Time Current Smoking Status Comment Facil ity Nov 05, 2023 01:30 PM VA-TOBACCO QUIT 15 YRS OR MORE [facility] Tobacco Use History This section includes a history of the smoking, or tobacco-related health factors, that were collected on or before the date of the Encounter. The data comes from the [place] facility where the Encounter took place. Date/Time Smoking Status/Tobacco Use Comment F acility Nov 05, 2023 01:30 PM VA-TOBACCO QUIT 15 YRS OR MORE [facility] Oct 28, 2022 01:00 PM VA-TOBACCO FORMER USER [facility] Oct 28, 2022 01:00 PM VA-TOBACCO QUIT 5 TO < 15 YRS [facility] Feb 01, 2020 03:56 PM VA-TOBACCO FORMER USER [facility] Feb 01, 2020 03:56 PM VA-TOBACCO QUIT 5 TO < 15 YRS [facility] Jan 26, 2019 09:50 AM VA-TOBACCO FORMER USER [facility] Jan 26, 2019 09:50 AM VA-TOBACCO QUIT 1 TO < 5 YRS [facility] Feb 03, 2018 03:53 PM FORMER TOBACCO USE <1Y [facility] Jun 14, 2016 11:06 AM CURRENT TOBACCO USER [facility] Advance Directives: All historical and current Section Date Range: From patient's date of to the date document was created. This section includes ALL of a patient's completed or amended PA Advance and Rescinded Directives. The entries below indicate that a directive exists for the patient, but an actual copy is not included with this document. The data comes from all [place] facilities. Date Advance Directives Provider Source Jan 02, 2023 STATE-AUTHORIZED PORTABLE ORDERS [facility] Encounter Notes: All associated encounter notes This section contains the clinical notes associated to the Encounter. Date/Time Encounter Note(s) Provider Source Nov 05, 2023 01:40 PM PRIMARY CARE DICK BAILEY NOTE: LOCAL TITLE: [facility] NURSING PROGRESS NOTE STANDARD TITLE: PRIMARY CARE NURSING NOTE DATE OF NOTE: NOV 05, 2023@13:40 ENTRY DATE: NOV 05, 2023@13:40:28 AUTHOR: SWAPNIL STANFORD COSIGNER: URGENCY: STATUS: COMPLETED TYPE OF VISIT: Appointment Check In Type of appointment: In-person appointment REASON FOR VISIT: Annual ALLERGIES: Patient has answered NKA VITAL SIGNS: Blood Pressure: 125/76 (11/05/2023 13:28) Pulse: 85 (11/05/2023 13:28) Respiration: 16 (11/05/2023 13:28) Temperature: 97.8 F [36.6 C] (11/05/2023 13:28) Weight: 360 lb [163.29 kg] (11/05/2023 13:28) Height: 76 in [193.0 cm] (07/02/2023 13:54) BMI: 43.9 O2 Sat: 95% (11/05/2023 13:28) Pain: 2 (11/05/2023 13:28) PAIN SCREEN: Patient is having significant pain that they would like to talk to their provider about today. Old (Chronic) (began more than 6 months ago) Patient states their average pain this past week is 2 Patient states the average number on how the chronic pain affects their enjoyment of life the past week is 2 Patient states during the past week the average number on how the pain has interfered with their general activity is 2 MEDICATION Active Outpatient Medications (including Supplies): A [...] AND/OR PREVENT BLOOD CLOTS BRIEF,TRANQUILITY AUGUSTIN OVERNITE XXL#0021 USE BRIEF ACTIVE DIRECTED NEEDED CLEANSING CLOTH [...] NASAL INHL SPRAY 2 SPRAYS IN ACTIVE (S) EACH NOSTRIL EVERY DAY FOR NASAL DRIP [...] EVERY MORNING ACTIVE FOR HEART FAILURE NYSTATIN 705551 UNT/GM CREAM APPLY THIN LAYER TOPICALLY ACTIVE [...] A WEEK NEEDED FOR WOUND PREVENTION Non-VA KETOCONAZOLE SHAMPOO 2%SHAMPOO TOPICALLY ACTIVE Non-VA LIDOCAINE 5% PATCH 1 PATCH TOPICALLY ACTIVE Over the Counter/Herbal Medications: The patient states that they take some outside medications and/or herbals. Td / Tdap Immunization: Administered: TDAP Date Administered: Nov 05, 2023 13:30 Science Job Titles: [employer] Lot: [id number] Exp Date: November 25, 2025 [facility]: [id number] Admin Route/Site: INTRAMUSCULAR/LEFT DELTOID Dosage: 0.5mL Vaccine Information Statement(s): TDAP (TETANUS, DIPHTHERIA, PERTUSSIS) VACCINE VIS Feb 23, 2021 ([place]ANGLADESHI) Order By: Policy Administered By: Swapnil Stanford Vaccine Information Sheet (VIS) was given to the patient/caregiver, education regarding adverse reactions was discussed, as well as barriers to learning, if any, were acknowledged. ADV DIR Notification and Screening: ADVANCE DIRECTIVE NOTIFICATION: Patient was given written notification of the following rights: 1. Accept or refuse any medical treatment. 2. Complete a durable power of trademark attorney for health care. 3. Complete a living will. ADVANCE DIRECTIVE SCREENING: Does patient have an Advance Directive? The patient does not have an Advance Directive. The patient wishes to create an Advance Directive for health care. The patient has no questions about completing the Advance Directive forms. PAVE Foot Check: Patient declined limb care exam. The patient was advised the [place] mandates all patients with diabetes mellitus, end stage renal disease, peripheral vascular disease, or sensory neuropathy should have a complete foot check completed annually. This includes a visual exam of the skin, pedal pulses and a sensory exam. Patients with any abnormality noted during the foot check should be referred to a specialist. Influenza Immunization: The patient declines to receive the recommended dose of seasonal influenza vaccine. Immunization: INFLUENZA, UNSPECIFIED FORMULATION Refusal Reason: PATIENT DECISION Patient refuses all immunization(s) in the FLU group Date Documented: 11/05/23 13:57 Pneumococcal Conjugate Vaccine (PCV15/PCV20): Refuses PCV vaccine Immunization: PNEUMOCOCCAL CONJUGATE, UNSPECIFIED FORMULATION Refusal Reason: PATIENT DECISION Patient refuses all immunization(s) in the PneumoPCV group Date Documented: 11/05/23 13:57 Homelessness/Food Insecurity Screen: In the past 2 months, have you been living in stable housing that you own, rent, or stay in as part of a household? Yes - Living in stable housing. Are you worried or concerned that in the next 2 months you may NOT have stable housing that you own, rent, or stay in as part of a household? No - Not worried about housing near future The reports the following: Within the past 12 months, you worried whether your food would run out before you got money to buy more. Never true Within the past 12 months, the food you bought just didn't last and you didn't have money to get more. Never true Food Assistance Programs [facility] Food Assistance Programs [facility] Tobacco Use Screening: The patient is a former tobacco user. The patient quit fifteen or more years ago. Depression Screening: Perform PHQ-2 A PHQ-2 screen was performed. The score was 0 which is a negative screen for depression. Over the past two weeks, how often have you been bothered by the following problems? 1. Little interest or pleasure in doing things Not at all 2. Feeling down, depressed, or hopeless Not at all Nursing Annual Screening: Fall History Screen During the past 12 months, have you had any falls? Patient does not report any falls in the past 12 months. MEDICATIONS: Patient is on one of the following medication classes: Antihypertensives, Antidepressants, Antipsychotics, Diuretics, or Controlled substance medication used for pain. Script Talk Screen Are you able to read your prescription bottles with your glasses, magnifiers or other aids? Yes or patient not taking any prescriptions. 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 Yes MOVE! Program Screen Body Mass Index (BMI)= 43.9 [place]: Collection DT Specimen Test Name Result Units Ref Range 10/28/2022 16:17 BLOOD !! HEMOGLOBIN A1C 6.0 % 4.0 - 6.0 !! Indicates COMMENTS AVAILABLE...Refer to Interim Lab Report. Shay Portdemar Hgb A1C: No data available [place] Hgb A1C: No data available Point of Care Hgb A1C: POC HGB A1C____ Outpatient Nutrition Screen Body Mass Index (BMI)= 43.9 [place]: Collection DT Specimen Test Name Result Units Ref Range 10/28/2022 16:17 BLOOD !! HEMOGLOBIN A1C 6.0 % 4.0 - 6.0 !! Indicates COMMENTS AVAILABLE...Refer to Interim Lab Report. Shay Lewis Hgb A1C: No data available [place] Hgb A1C: No data available Point of Care Hgb A1C: POC HGB A1C____ Is patient's BMI less than 18.5? No Does patient have swallowing, coughing, or chewing problems affecting oral intake? No Has patient experienced unplanned weight loss or gain greater than 10 pounds over the last 2 months? No Is patient's Hgb A1C (Glycosylated Hemoglobin) greater than 9.5? Information not available Is patient receiving Total Parenteral Nutrition (TPN) or Tube Feedings? No Patient Health Education Screen BARRIERS/SPECIAL NEEDS: Physical limitations Hearing limitations Visual limitations PREFERRED STYLE OF LEARNING: Listening Client Assistive Service (RAHAT) Screen Does the patient require assistance with outpatient visit? No Diabetic Eye Screening: Patient declined eye exam at this encounter. Pt wants to get full eye check and wanted to go at [facility] ADAL /mateo/ SWAPNIL STANFORD LPN LICENSED PRACTICAL NURSE Signed: 11/05/2023 14:00 SWAPNIL STANFORD [facility] Nov 05, 2023 01:37 PM H & P NOTE: LOCAL TITLE: [facility] ANNUAL VISIT STANDARD TITLE: H & P NOTE DATE OF NOTE: NOV 05, 2023@13:37 ENTRY DATE: NOV 05, 2023@13:37:56 AUTHOR: GELACIO MICHEL COSIGNER: URGENCY: STATUS: COMPLETED Today's Nurse check-in note reviewed. Seen in clinic today respecting current PPE guidelines. Preferred name- Gilda Chief complaint: An established patient here for Wellness and preventive medicine visit. The patient has no concerns today. He states he is doing much better still with SOB , but has gotten better. History of Present Illness: with a history of persistent atrial fibrillation (on apixaban) s/p unsuccessful DCCV (01/22/23), HFpEF 55-60% (TTE 09/2022), HTN, DM2, severe COPD, morbid obesity, lipodermatosclerosis/bilat venous stasis edema, chronic back pain/lumbar spondylosis s/p laminectomy L2-4 (1999), DJD/OA bilateral hips mod/severe, bilateral foot pain and psoriasis. Chronic Problems #HFpEF- Stage C , NYHA class-III ,with chf clinic -SOB better, b/l LE edema better. . BP at goal today . ACEi/ARB/ARNI: Losartan 50 mg daily , BB: not prescribed, spironolactone 25 mg daily, Empagliflozin 12.5 mg daily, Furosemide to 80 mg daily and Potassium #Morbid Obesity - with Metabolic clinic - He's lost 57 lbs. on semaglutide and would like to lose another 130 lbs. He is now on Semaglutide 2 mg e74iaat . has some constipation with it . He is taking Metamucil nut has fluid restriction so feels like it is not working #COPD-Pulm saw 02/04/2023 .PFTs previously appeared obstructive. H/O eosinophilia - persistent. On Claritin, albuterol, olodaterol/tiotropium. Not on ICS .No cough now , stable # A fib- He was admitted July 07 to July 10, 2023 for dofetilide initiation and cardioversion which was successful. With anticoagulation clinic for apixaban. Not on any BB for rate control . will clarify if he needs one from electrophysiology #BPH-Is not on any meds since December 2022. He wants a PSA check but does not want to add any medication now #Chronic Lymphedema - Has home PT ordered and is helping #Derm- with derma clinic - Palmoplantar keratoderma psoriasis ,Stasis dermatitis with impetiginization and ulceration,Prurigo nodularis,Cutis verticis gyrata - on phototherapy and topicals Review of Systems Denies chest pain,, recent significant weight changes, rash, bowel or bladder changes, new joint pain or swelling, headaches, lightheadedness, vision changes, new numbness or tingling or weakness. Remainder of the ROS is negative, except as above. Past Medical History Active problems - Computerized Problem List is the source for the followin. Hypertension (SNOMED CT 23160816) 2. Tachycardia - EKG 04/24/[address] no acute ST or T wave changes 3. Chronic back pain (SNOMED CT 880621918) - s/p laminectomy L2-4 '00 - disability parking permit application completed 03/10/18 with exp date 03/2023 4. Other and unspecified alcohol dependence, unspecified drinking behavior 5. Tobacco use (SNOMED CT 399866712) - quit >25yr use 6. SCREEN - c scope - AAA due 65-75 - DEXA due >70 7. 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 SURGERY Hx - laminectomy L2-4 '00 - tonsilectomy - adenoidectomy - R tympanoplasty '78 9. LUNG LESION - incidental on c-xray 04/21/12 ER @[facility] - CT chest 05/01/12 @[facility] - [place] chest 05/25/12 @[facility] lung nodules, new effusion, rib frx - [...] 12. Solitary nodule of lung (SNOMED CT 942305076) 13. Chronic obstructive lung disease - PFT done 08/28/15 @[facility] 14. Degenerative joint disease - CT 06/08/2016; bilateral hips mod/severe 15. Benign localized hyperplasia of prostate 16. Arthritis of right hip 17. Lumbar spondylosis 18. Bilateral foot pain 19. Psoriasis 20. Venous stasis edema of bilateral lower limbs 21. Lipodermatosclerosis 22. Diabetes Mellitus Type 2 ([facility] [id number]) 23. Diastolic dysfunction 24. Paroxysmal atrial fibrillation 25. 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 FAMILY HISTORY Father; d86 natural causes Mother: breast cancer d70 Brother: [place] d49 Sister; healthy Allergies: Patient has answered NKA Medications: Active Outpatient Medications (including Supplies): Active [...] 120D NASAL INHL SPRAY 2 SPRAYS ACTIVE (S) IN EACH NOSTRIL EVERY DAY FOR NASAL DRIP 14) FUROSEMIDE 40MG TAB TAKE TWO TABLETS BY MOUTH EVERY ACTIVE MORNING FOR EXCESS FLUID FOR WEIGHT GAIN OR WORSENING HEART FAILURE SYMPTOMS 15) GABAPENTIN 400MG CAP TAKE ONE CAPSULE BY MOUTH FOUR ACTIVE TIMES A DAY FOR PAIN AND NUMBNESS 16) GUAIFENESIN 200MG TAB TAKE TWO TABLETS BY MOUTH THREE ACTIVE TIMES A DAY FOR COPD/COUGH/MUCUS 17) HYDROPHILIC (EQV AQUAPHOR) TOP OINT APPLY SMALL ACTIVE AMOUNT TOPICALLY THREE TIMES A WEEK FOR DRY SKIN 18) KERLIX 4.5IN STERILE USE 1 BANDAGE TOPICALLY ACTIVE DIRECTED 19) LIDOCAINE 5% PATCH APPLY 3 PATCHES TOPICALLY EVERY ACTIVE DAY FOR PAIN. WEAR FOR ONLY 12 HOURS THEN REMOVE FOR 12 HOURS. ONE PATCH FOR EACH HIP AND ONE PATCH FOR LOW BACK 20) LOSARTAN 50MG TAB TAKE ONE TABLET BY MOUTH EVERY ACTIVE MORNING FOR HEART FAILURE 21) NYSTATIN 111764 UNT/GM CREAM APPLY THIN LAYER ACTIVE TOPICALLY TWICE A DAY FUNGAL INFECTION EXTERNAL USE ONLY APPLY TO PANNUS 22) POTASSIUM CL 20MEQ SA TAB (DISPERSIBLE) TAKE TWO ACTIVE TABLETS BY MOUTH TWICE A DAY FOR POTASSIUM SUPPLEMENT 23) SEMAGLUTIDE 2MG/0.75ML INJ PEN 3ML INJECT 2MG UNDER ACTIVE THE SKIN EVERY WEEK FOR DIABETES 24) SKIN PREP WIPE USE 1 WIPE TOPICALLY THREE TIMES A ACTIVE WEEK REPLACES SKIN BARRIER FILM DUE TO BACKORDER 25) SPIRONOLACTONE 25MG TAB TAKE ONE TABLET BY MOUTH ACTIVE EVERY DAY FOR HEART FAILURE 26) TAZAROTENE 0.1% TOP CREAM APPLY THIN LAYER TOPICALLY ACTIVE AT BEDTIME TO THE FEET WITH THE 40% UREA CREAM, UNDER OCCLUSION DIRECTED 27) TRAZODONE HCL 50MG TAB TAKE ONE TABLET BY MOUTH AT ACTIVE BEDTIME FOR SLEEP 28) TRIAMCINOLONE ACETONIDE 0.1% OINT APPLY THIN LAYER ACTIVE TOPICALLY TWICE A DAY AVOID FACE,GROIN & ARMPITS *FOR EXTERNAL USE ONLY APPLY TO INTACT SKIN ON LOWER LEGS AFTER DILUTE VINEGAR OR VASHE SOAKS. WRAP WITH KERLIX. 29) UNDERPAD,BED 23IN X 36IN PLASTIC BACK USE CHUX ACTIVE DIRECTED 30) UREA 40% CREAM APPLY THIN LAYER TOPICALLY EVERY DAY ACTIVE DIRECTED FOR THICK SKIN 31) VANICREAM TOP CREAM APPLY THIN LAYER TOPICALLY EVERY ACTIVE DAY IDEALLY WITHIN 3 MINUTES AFTER BATH OR SHOWER. TO ALL AREAS OF SKIN FOR MOISTURIZER FOR DRY SKIN 32) ZINC OXIDE 20% OINT APPLY SMALL AMOUNT TOPICALLY ACTIVE THREE TIMES A WEEK NEEDED FOR WOUND PREVENTION Active Non-VA Medications Status 1) Non-VA KETOCONAZOLE SHAMPOO 2%SHAMPOO TOPICALLY ACTIVE 2) Non-VA LIDOCAINE 5% PATCH 1 PATCH TOPICALLY ACTIVE 34 Total Medications MEDICATION RECONCILIATION Outpatient At this visit I have reviewed the medication list, and discussed relevant medications with the patient/surrogate. An updated patient medication list was given to the participant(s). No Change Physical Exam: Vitals: BP: 125/76 (11/05/2023 13:28) P: 85 (11/05/2023 13:28) R: 16 (11/05/2023 13:28) T: 97.8 F [36.6 C] (11/05/2023 13:28) WT: 360 lb [163.29 kg] (11/05/2023 13:28) BMI: 43.9 Pain: 2 (11/05/2023 13:28) O2 Sat: 95% (11/05/2023 13:28) General: Alert, well dressed and groomed, no apparent distress, in a motorized wheel chair HEENT: Normocephalic, atraumatic, ear canals clear, TMs normal, OP with a small mucoid cyst in the lower inner lip, neck supple without mass, adenopathy or thyromegaly Lungs: Clear; no wheezes, rhonchi or rales CV: RRR without murmur, rub or gallop GI: Abdomen obese, soft, non-tender, normal bowel sounds, no mass or HSM Skin:scatterred diffuse yellow/white thickened plaques in palms and some plaques in arms and legs .otherwise warm and moist, no rash or erythema MS: Bilateral LE with trace edema, ambulates on a wheelchair psych: Good eye contact, speech normal rate and rhythm, affect full range Assessment/Plan: Wellness/screening visit completed. #HFpEF-RTC in for CHF clinic #Morbid Obesity - continue with Metabolic clinic #COPD-Refilled albuterol and stiolto inhaler, Nebulizer tubing given # A fib-has RTC with cardio electro, with anticoagulation clinic for apixaban #BPH-will add psa to next lab draw #chronic pain -renewed gabapentin #Obesity - has RTC with metabolic , will MiraLAX for constipation #Derm- f/up with derm #Annual Vested exam - meds: reviewed, updated and renewed - the ACTIVE PROBLEM LIST problem list above is considered to be the Past Medical History for the purposes of this note; it was reviewed at the time of this visit and no changes unless otherwise noted above #Health Maintenance/Wellness -Exercise:None limited to wheel chair -Diet: well balanced, uses [employer] online shopping and cooks for self -Dental: no concerns -Hearing: no concerns -Eye Exam: no concerns - Cancer screening: ---> Prostate: no clinical indication ---> Colon: FIT ordered --->AAA Screenin CT - negative for aneurysm I will follow up with the on labs. If all is well we can see back in a year. understands and agrees to the plan. Follow up as discussed. Sooner if questions or concerns. Disclaimer: This note consists of symbols derived from keyboarding, dictation and/or voice recognition software. As a result, there may be errors in the script that have gone undetected. Please consider this when interpreting information found in this chart. Avg Risk Colorectal Cancer Screen: AVERAGE RISK colorectal cancer screening is due based on information available to this clinical reminder FOBT/FIT (Fecal Immunochemical Testing) has been ordered. See order tab for details. Assess Statin Use - Lipids (CVD/DM): The patient declines to be treated with a statin. Comment: Last LDL at goal /es/ MANDY MARIE DNP Signed: 11/05/2023 14:53 [facility]
--- OUTSIDE RECORDS SUMMARY | 2024-03-25 10:36 | XMS_ITS | Encounter Summary ---
Author Name [facility] Address [address] [place] [address] Care Team Providers Care Well Testing Operator Name Role Phone GELACIO MICHEL Primary [...] PART A Jul 21, 2014 PART A [id number] Miguelito CARRILLO PATIENT Selected Encounter This section includes the information on record at [place] for the Encounter. Date/Time Encounter Type Encounter Description Reason Pro vider Source Dec 24, 2023 09:16 AM Outpatient Encounter WOUND TREAT & OSTOMY CARE [facility] Encounter Template Text not used by [place] Plan of Treatment: Future Appointments (+ 6 months) and Future Tests (+/- 45 days) The Plan of Treatment section includes future care activities for the patient from all [place] treatmentfacilities. This section includes future appointments and future orders which are active, pending or scheduled. Future Appointments This section includes appointments that were scheduled to occur 6 months from the date of the Encounter, up to a maximum of 20 appointments. The data comes from all [place] treatment facilities. Appointment Date/Time Appointment Type Appointme nt Facility Name Dec 25, 2023 02:20 PM AMBULATORY - SURGERY [facility] Dec 25, 2023 02:45 PM AMBULATORY - SURGERY [facility] Dec 30, 2023 01:30 PM AMBULATORY - SURGERY [facility] Jan 06, 2024 12:30 PM [facility] Jan 06, 2024 01:00 PM [facility] Jan 06, 2024 02:00 [facility] Jan 06[facility] 2024 02:45 [facility] Jan 08, 2024 07:45 PM [facility] Jan 12, 2024 01:15 PM AMBULATORY - SURGERY [facility] Jan 13, 2024 03:00 PM [facility]ORY - NONE [facility] Jan 21, 2024 11:30 AM [facility] Feb 04, 2024 01:30 PM [facility] Feb 04, 2024 02:30 PM [facility] Feb 11, 2024 02:30 PM [facility] Feb 12, 2024 12:30 PM [facility] Feb 12, 2024 01:30 PM AMBULATORY - SURGERY [facility] Feb 12, 2024 03:00 PM AMBULATORY - SURGERY [facility] Feb 19, 2024 02:15 PM [facility] Feb 26, 2024 10:00 AM [facility]ORY - NONE [facility] Mar 29, 2024 01:00 PM AMBULATORY - SURGERY [facility] Active, Pending, and Scheduled Orders This section includes a listing of several types of active, pending, and scheduled orders, including clinic medications orders, diagnostic test orders, procedure orders and consult orders; where the start date of the order is 45 days before the date of the Encounter or 45 days after the date of theEncounter. The data comes from all [place] treatment [facility]. Test Date/Time Test Type Test Details Facility Name Jan 06, 2024 12:00 AM Laboratory - Chemi stry Order BNP PLASMA SP ONCE [facility] Lab Results: +/- 30 days of the encounter This section includes the Chemistry and Hematology Lab Results on record with [place] for the patient. Radiology Reports and Pathology Reports are provided separately, in subsequent sections. Lab Results This section contains the Chemistry/Hematology Results that were resulted 30 days before or 30 daysafter the date of the Encounter. Date/Time Source Result Type Result - Unit Interpretation Reference Range Comment Jan 06, 2024 03:40 PM [facility] COVID-19 DIAGNOSTIC PANEL (BIOFIRE) Specimen Type: NASOPHARYNGEAL Comment: Biofire Torch (618) Ordering Provider: ROXANNE BUCKLEY Report Released Date/Time: Jan 06, 2024 03:22 PM Reporting Lab: [facility] [id number] Performing Lab: [facility] [phone] C PNEUMONIAE PCR NOT DETECTED NOT DETECTED [...] NOT DETECTED Jan 06, 2024 03:22 PM [facility] POC CREATININE Specimen Type: BLOOD No comment entered. Ordering Provider: ALLISON PARRA Report Released Date/Time: Jan 06, 2024 03:24 PM Reporting Lab: [facility] [phone] Performing Lab: [facility] [address] POC CREATININE 1.5 mg/dL 0.6-1.3 Jan 06, 2024 03:19 PM [facility] POC ABG/LACTATE Specimen Type: VENOUS BLOOD No comment entered. Ordering Provider: ALLISON PARRA Report Released Date/Time: Jan 06, 2024 03:24 PM Reporting Lab: [facility] [address] Performing Lab: [facility] [address] POC PH 7.402 7.31-7.41 POC PCO2 50.1 mm[Hg] 41-51 POC PO2 24 mm[Hg] POC TCO2 33 mmol/L 24-29 POC HCO3 31.2 mmol/L 23-28 POC BE ECT 6 mmol/L -2-3 POC SO2 41 POC LACTATE <1.6 mmol/L 0.90-1.70 Jan 06, 2024 03:14 PM [facility] EXTRA BLUE TUBE Specimen Type: PLASMA No comment entered. Ordering Provider: ROXANNE BUCKLEY Report Released Date/Time: Jan 06, 2024 03:36 PM Reporting Lab: [facility] [address] Performing Lab: [facility] [address] EXTRA BLUE TUBE RECEIVED Jan 06, 2024 03:14 PM [facility] BNP Specimen Type: PLASMA No comment entered. Ordering Provider: ROXANNE BUCKLEY Report Released Date/Time: Jan 06, 2024 03:22 PM Reporting Lab: [facility] [address] Performing Lab: [facility] [address] BNP 18 pg/mL <99 Jan 06, 2024 03:14 PM [facility] TROPONIN I, HS Specimen Type: PLASMA No comment entered. Ordering Provider: ROXANNE BUCKLEY Report Released Date/Time: Jan 06, 2024 03:22 PM Reporting Lab: [facility] [phone] Performing Lab: [facility] [address] TROPONIN I, HS <3 <35 Jan 06, 2024 03:14 PM [facility] EXTRA GOLD GEL TUBE Specimen Type: SERUM No comment entered. Ordering Provider: ROXANNE BUCKLEY Report Released Date/Time: Jan 06, 2024 03:36 PM Reporting Lab: [facility] [address] Performing Lab: [facility] [address] EXTRA GOLD GEL TUBE RECEIVED Jan 06, 2024 03:14 PM [facility] CBC & DIFF Specimen Type: BLOOD Comment: Automated Differential Performed Ordering Provider: ROXANNE BUCKLEY Report Released Date/Time: Jan 06, 2024 03:22 PM Reporting Lab: [facility] [address] Performing Lab: [facility] [address] WBC 11.27 10*3/uL H 4.0-11.0 RBC 4.81 [...] 10*3/uL 0-0.1 Jan 06, 2024 11:57 AM [facility] BASIC METABOLIC PANEL+MG Specimen Type: PLASMA No comment entered. Ordering Provider: HITESH HOLGUIN Report Released Date/Time: Oct 07, 2023 02:47 PM Reporting Lab: [facility] [address] Performing Lab: [facility] [address] CREATININE 1.0 mg/dL 0.7-1.2 UREA NITROGEN 16 mg/dL 8-26 GLUCOSE 112 mg/dL H 70-100 SODIUM 137 mmol/L 136-145 POTASSIUM 4.1 mmol/L 3.5-5.1 CHLORIDE 101 mmol/L 98-107 CO2 26 mmol/L 22-29 CALCIUM 9.6 mg/dL 8.4-10.2 MAGNESIUM 2.4 mg/dL 1.6-2.6 ANION GAP 10 mmol/L 5-15 .CREAT EGFR(CKD-EPI) 79 >60 Dec 30, 2023 11:00 AM [facility] .OCCULT BLOOD(FIT) Specimen Type: FECES No comment entered. Ordering Provider: SRUTHI ANDUJAR Report Released Date/Time: Dec 30, 2023 11:00 AM Reporting Lab: [facility] [address] [facility] [address] Performing Lab: [facility] [address] [facility] [place] [address] .OCCULT BLOOD(FIT) POSITIVE Social History: Smoking Status (Most current) and Tobacco Use (All prior to encounter date) This section includes the most current, and the historical, smoking and tobacco- related health factors from the [place] facility where the Encounter took place. Current Smoking Status This section includes the most current smoking, or tobacco-related health factor, from the [place] facility where the Encounter took place. Date/Time Current Smoking Status Comment Tasha ity Dec 19, 2020 12:07 PM VA-TOBACCO FORMER USER [facility] Tobacco Use History This section includes a history of the smoking, or tobacco-related health factors, that were collected on or before the date of the Encounter. The data comes from the [place] facility where the Encounter took place. Date/Time Smoking Status/Tobacco Use Comment F acility Dec 19, 2020 12:07 PM [place]-TOBACCO QUIT 5 TO < 15 YRS [facility] Aug 02, 2015 09:49 AM CURRENT TOBACCO USER [facility] Jun 06, 2014 08:51 AM CURRENT TOBACCO USER [facility] May 04, 2013 09:29 AM CURRENT TOBACCO USER [facility] Apr 24, 2012 07:40 AM CURRENT TOBACCO USER [facility] Advance Directives: All historical and current Section Date Range: From patient's date of to the date document was created. This section includes ALL of a patient's completed or amended [place] Advance and Rescinded Directives. The entries below indicate that a directive exists for the patient, but an actual copy is not included with this document. The data comes from all [place] facilities. Date Advance Directives Provider Source Jan 02, 2023 STATE-AUTHORIZED PORTABLE ORDERS [facility] Radiology Reports: +/- 30 days of the [...] the Encounter. The data comes from all [place] treatment facilities. 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 Did the ordering provider speak with a computing consultant regarding this imaging exam? 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 Responsible provider name and phone number to notify for critical findings if other than user placing the order and pager listed below: User placing orders pager: [phone] LAST CREATININE 1.2 (10/07/23) Allergies: Patient has answered NKA Report Status: Verified Date Reported: JAN 09, 2024 Date Verified: JAN 09, 2024 Process Control Tech E-Sig:/ES/OSBALDO RODGERS MD Report: MRI BRAINBRAINSTEM W [...] Primary Interpreting Staff: OSBALDO RODGERS MD, RADIOLOGIST (Process Control Tech) /[facility] OSBALDO RODGERS [facility] Jan 06, 2024 03:24 PM CHEST 1 VIEW: GILDA CARRILLO RAY [id number] -1950 M Exm Date: JAN 06, 2024@15:24 Req Phys: ANNI BUCKLEY Pat Loc: [facility] EMERGENCY DEPT WALK-IN (Re Img Loc: MAIN X-RAY Service: [place] [address] (Case [id number] COMPLETE) CHEST 1 VIEW (RAD Detailed) CPT:43112 Proc Modifiers : PORTABLE EXAM Reason for Study: Shortness of breath, cough Clinical History: [place] IS under investigation (PUI) for COVID-19 or [...] 06, 2024 Date Verified: JAN 06, 2024 Process Control Tech E-Sig:/ES/BHARAT PARKER MD Report: EXAMINATION: CHEST 1 [...] Primary Interpreting Staff: BHARAT PARKER MD, RADIOLOGIST (Process Control Tech) /RTS BHARAT PARKER [facility] Encounter Notes: All associated encounter notes This section contains the clinical notes associated to the Encounter. Date/Time Encounter Note(s) Provider Source Dec 24, 2023 09:17 AM REPORT OF CONTACT: LOCAL TITLE: APPOINTMENT SCHEDULING NOTE STANDARD TITLE: REPORT OF CONTACT DATE OF NOTE: DEC 24, 2023@09:17 ENTRY DATE: DEC 24, 2023@09:17:20 AUTHOR: POLINA CUMMINS EXP COSIGNER: URGENCY: STATUS: COMPLETED Attempted to schedule Return to clinic (RTC) Contact attempt made to [place] 1st attempt Telephone declines to schedule/reschedule, due to stated he no longer needs the appointment. /mateo/ POLINA DIXON Signed: 12/24/2023 09:19 POLINA CUMMINS [facility]
--- OUTSIDE RECORDS SUMMARY | 2024-03-25 10:36 | XMS_ITS | Encounter Summary ---
Author Name [facility] [place] Organization [facility] [place] Address [address] [place] [address] Care Team Providers Care Slip Caster Name Role Phone GELACIO MICHEL Primary Care [...] PART A Jul 21, 2014 PART A [id number] [phone] Miguelito CARRILLO PATIENT Selected Encounter This section includes the information on record at [place] for the Encounter. 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 Date/Time Primary/Secondary Diagnosis Diagnosis Name Provider Source Dec 25, 2023 03:23 PM PRIMARY Unspecified optic atrophy [facility] Dec 25, 2023 03:23 PM SECONDARY Unspecified visual disturbance [facility] Plan of Treatment: Future Appointments (+ 6 months) and Future Tests (+/- 45 days) The Plan of Treatment section includes future care activities for the patient from all [facility] This section includes future appointments and future orders which are active, pending or scheduled. Future Appointments This section includes appointments that were scheduled to occur 6 months from the date of the Encounter, up to a maximum of 20 appointments. The data comes from all [facility]. Appointment Date/Time Appointment Type Appointme nt Facility Name Dec 30, 2023 01:30 PM AMBULATORY - SURG[place] [facility] Jan 06, 2024 12:30 PM [place] [facility] Jan 06, 2024 01:00 [facility] Jan 06, 2024 02:00 [facility] Jan 06, 2024 02:45 PM [facility] Jan 08, 2024 07:45 PM [facility] Jan 12, 2024 01:15 PM AMBULATORY - SURGERY [facility] Jan 13, 2024 03:00 PM AMBULATORY - NONE [facility] Jan 21, 2024 11:30 AM AMBULATORY - MEDICINE [place] [facility] Feb 04, 2024 01:30 PM [facility] Feb 04, 2024 02:30 PM [facility] Feb 11, 2024 02:30 PM [place] [place] [facility] Feb 12, 2024 12:30 PM [facility] Feb 12, 2024 01:30 PM AMBULATORY - SURGERY [facility] Feb 12, 2024 03:00 PM AMBULATORY - SURGERY [facility] Feb 19, 2024 02:15 PM [facility] Feb 26, 2024 10:00 AM AMBULATORY - NONE [facility] Mar 29, 2024 01:00 PM AMBULATORY - SURGERY [facility] Mar 29, 2024 02:00 PM AMBULATORY - SURGERY [facility] Mar 30, 2024 08:30 AM AMBULATORY - REHAB [facility] Active, Pending, and Scheduled Orders This section includes a listing of several types of active, pending, and scheduled orders, including clinic medications orders, diagnostic test orders, procedure orders and consult orders; where the start date of the order is 45 days before the date of the Encounter or 45 days after the date of theEncounter. The data comes from all [place] treatment facilities. Test Date/Time Test Type Test Details Facility Name Jan 06, 2024 12:00 AM Laboratory - Chemi stry Order BNP PLASMA SP ONCE [facility] Lab Results: +/- 30 days of the [...] Range Comment Jan 06, 2024 03:40 PM [facility] COVID-19 DIAGNOSTIC PANEL (BIOFIRE) Specimen Type: NASOPHARYNGEAL Comment: Biofire Jef (050) Ordering Provider: ROXANNE BUCKLEY Report Released Date/Time: Jan 06, 2024 03:22 PM Reporting Lab: [facility] [phone] Performing Lab: [facility] [phone] C PNEUMONIAE PCR NOT DETECTED NOT DETECTED [...] NOT DETECTED Jan 06, 2024 03:22 PM [facility] POC CREATININE Specimen Type: BLOOD No comment entered. Ordering Provider: ALLISON PARRA Report Released Date/Time: Jan 06, 2024 03:24 PM Reporting Lab: [facility] [phone] Performing Lab: [facility] [address] POC CREATININE 1.5 mg/dL 0.6-1.3 Jan 06, 2024 03:19 PM [facility] POC ABG/LACTATE Specimen Type: VENOUS BLOOD No comment entered. Ordering Provider: ALLISON PARRA Report Released Date/Time: Jan 06, 2024 03:24 PM Reporting Lab: [facility] [phone] Performing Lab: [facility] [address] POC PH 7.402 7.31-7.41 POC PCO2 50.1 mm[Hg] 41-51 POC PO2 24 mm[Hg] POC TCO2 33 mmol/L 24-29 POC HCO3 31.2 mmol/L 23-28 POC BE ECT 6 mmol/L -2-3 POC SO2 41 POC LACTATE <1.6 mmol/L 0.90-1.70 Jan 06, 2024 03:14 PM [facility] EXTRA BLUE TUBE Specimen Type: PLASMA No comment entered. Ordering Provider: ROXANNE BUCKLEY Report Released Date/Time: Jan 06, 2024 03:36 PM Reporting Lab: [facility] [phone] Performing Lab: [facility] [address] EXTRA BLUE TUBE RECEIVED Jan 06, 2024 03:14 PM [facility] BNP Specimen Type: PLASMA No comment entered. Ordering Provider: ROXANNE BUCKLEY Report Released Date/Time: Jan 06, 2024 03:22 PM Reporting Lab: [facility] [phone] Performing Lab: [facility] [address] BNP 18 pg/mL <99 Jan 06, 2024 03:14 PM [facility] TROPONIN I, HS Specimen Type: PLASMA No comment entered. Ordering Provider: ROXANNE BUCKLEY Report Released Date/Time: Jan 06, 2024 03:22 PM Reporting Lab: [facility] [phone] Performing Lab: [facility] [address] TROPONIN I, HS <3 <35 Jan 06, 2024 03:14 PM [facility] EXTRA GOLD GEL TUBE Specimen Type: SERUM No comment entered. Ordering Provider: ROXANNE BUCKLEY Report Released Date/Time: Jan 06, 2024 03:36 PM Reporting Lab: [facility] [phone] Performing Lab: [facility] [address] EXTRA GOLD GEL TUBE RECEIVED Jan 06, 2024 03:14 PM [facility] CBC & DIFF Specimen Type: BLOOD Comment: Automated Differential Performed Ordering Provider: ROXANNE BUCKLEY Report Released Date/Time: Jan 06, 2024 03:22 PM Reporting Lab: [facility] [address] Performing Lab: [facility] [address] WBC 11.27 10*3/uL H 4.0-11.0 RBC 4.81 [...] 10*3/uL 0-0.1 Jan 06, 2024 11:57 AM [facility] BASIC METABOLIC PANEL+MG Specimen Type: PLASMA No comment entered. Ordering Provider: HITESH HOLGUIN Report Released Date/Time: Oct 07, 2023 02:47 PM Reporting Lab: [facility] [phone] Performing Lab: [facility] [address] CREATININE 1.0 mg/dL 0.7-1.2 UREA NITROGEN 16 mg/dL 8-26 GLUCOSE 112 mg/dL H 70-100 SODIUM 137 mmol/L 136-145 POTASSIUM 4.1 mmol/L 3.5-5.1 CHLORIDE 101 mmol/L 98-107 CO2 26 mmol/L 22-29 CALCIUM 9.6 mg/dL 8.4-10.2 MAGNESIUM 2.4 mg/dL 1.6-2.6 ANION GAP 10 mmol/L 5-15 .CREAT EGFR(CKD-EPI) 79 >60 Dec 30, 2023 11:00 AM [facility] .OCCULT BLOOD(FIT) Specimen Type: FECES No comment entered. Ordering Provider: SRUTHI ANDUJAR Report Released Date/Time: Dec 30, 2023 11:00 AM Reporting Lab: [facility] [phone] Performing Lab: [facility] [address] [address] .OCCULT BLOOD(FIT) POSITIVE Social History: Smoking Status [...] F acility Dec 19, 2020 12:07 PM PA-TOBACCO QUIT 5 TO < 15 YRS [facility] [...] STATE-AUTHORIZED PORTABLE ORDERS [facility] Radiology Reports: +/- 30 days of [...] the Encounter. The data comes from all [place] treatment facilities. Date/Time Radiology Report Provider Source Jan 08, 2024 08:00 PM MRI-BRAIN (P): GILDA CARRILLO CLAUDIA [id number] -1950 Ex Date: JAN 08, 2024@20:00 Req Phys: ROSEANN GAMA Loc: [facility] RESIDENT FOL/UP (Req'g Img Loc: MRI IMAGING Service: [place] [address] (Case [id number] COMPLETE) MRI BRAINBRAINSTEM W & W/O CONTRA(MRI Detailed) CPT:56012 Contrast Media : Gadolinium Reason for Study: gradual right eye vision loss over with right optic nerve atroph (Case [id number] COMPLETE) MRI NECK/FACE/ORBIT W/CONTRAST (MRI Detailed) CPT:61822 Contrast Media : Gadolinium Clinical History: Per Joint Commission Standards, by signing this diagnostic imaging request the ordering provider confirms they have considered patients age and recent imaging history. Did the ordering provider speak with a collection systems consultant regarding this imaging exam? Yes, Name of collection systems consultant (resident or staff):Chidi Espinoza MD gradual right eye vision loss over with right optic nerve atrophy on exam concerning for compressive mass on optic nerve pathway Responsible provider name and phone number to notify for critical findings if other than user placing the order and pager listed below: User placing orders pager: [phone] LAST CREATININE 1.2 (10/07/23) Allergies: Patient has answered NKA Report Status: Verified Date Reported: JAN 09, 2024 Date Verified: JAN 09, 2024 Firebreak Cutter E-Sig:/ES/OSBALDO RODGERS MD Report: MRI BRAINBRAINSTEM W [...] Primary Interpreting Staff: OSBALDO RODGERS MD, RADIOLOGIST (Firebreak Cutter) /[facility] OSBALDO RODGERS [facility] Jan 06, 2024 03:24 PM CHEST 1 VIEW: GILDA CARRILLO RAY [id number] -1950 M Exm Date: JAN 06, 2024@15:24 Req Phys: ANNI BUCKLEY Alber Pat Loc: [facility] EMERGENCY DEPT WALK-IN (Re Img Loc: MAIN X-RAY Service: [place] [address] (Case [id number] COMPLETE) CHEST 1 VIEW (RAD Detailed) CPT:97795 Proc Modifiers : PORTABLE EXAM Reason for [...] 06, 2024 Date Verified: JAN 06, 2024 Firebreak Cutter E-Sig:/ES/BHARAT PARKER MD Report: EXAMINATION: CHEST 1 [...] Primary Interpreting Staff: BHARAT PARKER MD, RADIOLOGIST (Firebreak Cutter) /BHARAT TSAI [facility] Encounter Notes: All associated encounter notes This section contains the clinical notes associated to the Encounter. Date/Time Encounter Note(s) Provider Source Jan 05, 2024 02:59 PM ACCOUNTING OF DISC LOSURES NOTE: LOCAL TITLE: STATE PRESCRIPTION DRUG MONITORING PROGRAM STANDARD TITLE: ACCOUNTING OF DISCLOSURES NOTE DATE OF NOTE: JAN 05, 2024@14:59 ENTRY DATE: JAN 05, 2024@15:00:09 AUTHOR: TERRENCE PÉREZ EXP COSIGNER: URGENCY: STATUS: COMPLETED Documentation of contact with State Prescription Drug Monitoring Program (PDMP) The clinical justification for this PDMP query is to review controlled substances prescribed outside of the [facility], and any additional information that may become available, as an important component of standard clinical care, and in accordance with [facility] policy. Patient information was shared with PDMP S[employer] Tech. PDMP findings: No prescription(s) for controlled substances outside the [facility] were found in the last 90 days. I reviewed the [place] Stratification Tool for Opioid Risk Mitigation. /nacho PÉREZ MD STAFF REEL SLITTER Signed: 01/05/2024 15:06 TERRENCE PÉREZ [facility] Dec 25, 2023 03:36 PM ADDENDUM: LOCAL TITLE: Addendum STANDARD TITLE: ADDENDUM DATE OF NOTE: DEC 25, 2023@15:36:45 ENTRY DATE: DEC 25, 2023@15:36:46 AUTHOR: ROSEANN GAMA EXP COSIGNER: URGENCY: STATUS: COMPLETED Could you please order lorazepam 1mg x2 pills for this patient to pickling tank operator at the pharmacy window (for MRI claustrophobia)? Please let me know if you do and I will call him to let him know it is ready for pickling tank operator. Thank you! /nacho GAMA MD RESIDENT Signed: 12/25/2023 15:37 Receipt Acknowledged By: 12/26/2023 14:53 /nacho PÉREZ MD STAFF REEL SLITTER --- Original Document --- 12/25/23 OPHTHALMOLOGY CONSULT: [facility] OPHTHALMOLOGY Follow up CLINIC HPI: Mr. 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 Interval: MRI has not yet been performed and he has not gotten any calls regarding having it scheduled. LCV VAsc OD: 20/40-1 Pinhole: 20/NI 0S: 20/25-2 Pinhole: 20/ Today VASC: OD 20/40 NIPH OS 20/30; ph 20/25-2 IOP 16/15 Exam: SLE (OU unless indicated) lids/lashes: floppy with inferior and superior scleral show conjunctiva/sclera: white and quiet; OS ST small conj cyst cornea: clear epithelium, stroma, and no guttae, not dry. anterior chamber: deep and quiet iris: round and flat; OS temporal 0.5mm nevus peripheral (post dilation) lens: OD many vacuoles central, IT CS approaching center, few early spokes otherwise as well; OS 1-2+ NS, small vacuole anterior vitreous: clear Impression/Plan: # Blurry vision OD - 11/2023 Gradually worsening VA OD over 5 years; RAPD+ and optic atrophy on OCT RNFL; no night sweats, fevers, or chills. No focal numbness, weakness, or tingling. C/f compressive intracranial - 12/2023 MRI not yet scheduled; never got a call; vision stable; called scheduling to schedule the MRI brain/orbit ashish cai [id number]; January 07 7:30pm; cranial nerves intact today. - Ordered ativan 1mg x 2 tablets - take one an hour prior and another during the visit. - RTC 3 w VT, HVF 24-2 - RTC 6w neuro-ophth - next avialable VT, OCT RNFL # Cataract OU - Mildly visually significant; can consider evaluation after optic atrophy workup # Intraretinal hemorrhage OS - History of T2DM. One DBH OS today; on ozempic for weightloss; also on Empagliflozin; also has history of HF. No anemia 06/2023. History of HTN but well controlled per patient. 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 patient asymptomatic. Never had sleep study. Does snore. Tired all the time from heart failure. Would not use a CPAP even if he was prescribed one. 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 Patient dilated. Staff: Dr. Pérez /mateo/ ROSEANN GAMA MD RESIDENT Signed: 12/25/2023 15:29 12/25/2023 ADDENDUM STATUS: COMPLETED [facility] 24-2 today: OD: diffuse TD depression; PD with inferior arcuate; reliable OS: nonspecific defects; reliable OD does fit glaucomatous change but RNFL loss is predominantly nasal which is not typical for glaucoma. Concern for medial optic nerve compression in right eye. /mateo/ ROSEANN GAMA MD RESIDENT Signed: 12/25/2023 15:45 ROSEANN GAMA [facility] Dec 25, 2023 03:06 PM OPHTHALMOLOGY CONS ULT: LOCAL TITLE: OPHTHALMOLOGY CONSULT STANDARD TITLE: OPHTHALMOLOGY CONSULT DATE OF NOTE: DEC 25, 2023@15:06 ENTRY DATE: DEC 25, 2023@15:06:12 AUTHOR: ROSEANN GAMA EXP COSIGNER: URGENCY: STATUS: COMPLETED OPHTHALMOLOGY CONSULT Has ADDENDA [facility] OPHTHALMOLOGY Follow up CLINIC HPI: Mr. 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 Interval: MRI has not yet been performed and he has not gotten any calls regarding having it scheduled. LCV VAsc OD: 20/40-1 Pinhole: 20/NI 0S: 20/25-2 Pinhole: 20/ Today VASC: OD 20/40 NIPH OS 20/30; ph 20/25-2 IOP 16/15 Exam: SLE (OU unless indicated) lids/lashes: floppy with inferior and superior scleral show conjunctiva/sclera: white and quiet; OS ST small conj cyst cornea: clear epithelium, stroma, and no guttae, not dry. anterior chamber: deep and quiet iris: round and flat; OS temporal 0.5mm nevus peripheral (post dilation) lens: OD many vacuoles central, IT CS approaching center, few early spokes otherwise as well; OS 1-2+ NS, small vacuole anterior vitreous: clear Impression/Plan: # Blurry vision OD - 11/2023 Gradually worsening VA OD over 5 years; RAPD+ and optic atrophy on OCT RNFL; no night sweats, fevers, or chills. No focal numbness, weakness, or tingling. C/f compressive intracranial - 12/2023 MRI not yet scheduled; never got a call; vision stable; called scheduling to schedule the MRI brain/orbit ashish cai [id number]; January 07 7:30pm; cranial nerves intact today. - Ordered ativan 1mg x 2 tablets - take one an hour prior and another during the visit. - RTC 3 w VT, HVF 24-2 - RTC 6w neuro-ophth - next avialable VT, OCT RNFL # Cataract OU - Mildly visually significant; can consider evaluation after optic atrophy workup # Intraretinal hemorrhage OS - History of T2DM. One DBH OS today; on ozempic for weightloss; also on Empagliflozin; also has history of HF. No anemia 06/2023. History of HTN but well controlled per patient. 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 patient asymptomatic. Never had sleep study. Does snore. Tired all the time from heart failure. Would not use a CPAP even if he was prescribed one. 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 Patient dilated. Staff: Dr. Pérez /mateo/ ROSEANN GAMA MD RESIDENT Signed: 12/25/2023 15:29 12/25/2023 ADDENDUM STATUS: COMPLETED Could you please order lorazepam 1mg x2 pills for this patient to pickling tank operator at the pharmacy window (for MRI claustrophobia)? Please let me know if you do and I will call him to let him know it is ready for pickling tank operator. Thank you! /nacho GAMA MD RESIDENT Signed: 12/25/2023 15:37 Receipt Acknowledged By: * AWAITING SIGNATURE * TERRENCE PÉREZ 12/25/2023 ADDENDUM STATUS: COMPLETED [facility] 24-2 today: OD: diffuse TD depression; PD with inferior arcuate; reliable OS: nonspecific defects; reliable OD does fit glaucomatous change but RNFL loss is predominantly nasal which is not typical for glaucoma. Concern for medial optic nerve compression in right eye. /mateo/ ROSEANN GAMA MD RESIDENT Signed: 12/25/2023 15:45 ROSEANN GAMA [facility] Dec 25, 2023 02:53 PM OPHTHALMOLOGY TECH NICIAN NOTE: LOCAL TITLE: [place] OPERATOR NOTE STANDARD TITLE: [place] OPERATOR NOTE DATE OF NOTE: DEC 25, 2023@14:53 ENTRY DATE: DEC 25, 2023@14:53:06 AUTHOR: ANA MORA COSIGNER: URGENCY: STATUS: COMPLETED Eye Start Exam Patient: GILDA CARRILLO Sex: MALE SSN: [id number] Birthdate: [birth year] Chief complaint: 3+ week F/U - no changes since last visit - no other concerns - never recieved a call to schedule MRI History of Present Illness: Location: Intensity: Duration: Follow Up Exam Eye Medications AT's OU PRN Last refraction: Vision: OD:SC(without glasses) OD: 20/40 Pinhole: 20/NI Near: 20/ Vision: OS:SC(without glasses) 0S: 20/30 Pinhole: 20/25-2 Near: 20/ Confrontational Squires: Full to finger counting: Right: Yes Left: Yes Extra Ocular Movement: Normal Pupils: Right: Round Left: Round Size: Right: 5 Left: 5 React to light: Right: Yes Left: Yes Afferent pupil defect: Right: Grade: Left: Grade: Note: Intra-ocular pressure (IOP): OD: 16 OS: 15 Kathrin /mateo/ ANA [facility] [employer] Signed: 12/25/2023 14:58 ANA MORA [facility]
--- OUTSIDE RECORDS SUMMARY | 2024-03-25 10:36 | XMS_ITS | Encounter Summary ---
Author Name [facility] [place] [facility] [place] Address [address] [place] [address] Care Team Providers Care Bowl Turner Name Role Phone GELACIO MICHEL Primary Care [...] PART A Jul 21, 2014 PART A [id number] Miguelito CARRILLO PATIENT Selected Encounter This section includes the information on record at [place] for the Encounter. Date/Time Encounter Type Encounter Description Reason Provider Source December 01, 2023 12:30 PM OFFICE O/P EST MOD 30 MIN OPHTHALMOLOGY ICD-10-CM H25.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, right eye NIRU ESPINOZA Encounter Template Text not used by [place] Assessments - Encounter Diagnoses This section includes the primary and secondary diagnoses documented for the Encounter. Date/Time Primary/Secondary Diagnosis Diagnosis Name Provider Source December 01, 2023 01:39 PM PRIMARY Combined forms of age-related cataract, right eye ROSEANN GAMA [facility] December 01, 2023 01:39 PM SECONDARY Unspecified visual disturbance ROSEANN GAMA [facility] Plan of Treatment: Future Appointments (+ 6 months) and Future Tests (+/- 45 days) The Plan of Treatment section includes future care activities for the patient from [facility] [place] [facility] This section includes future appointments and future orders which are active, pending or scheduled. Future Appointments This section includes appointments that were scheduled to occur 6 months from the date of the Encounter, up to a maximum of 20 appointments. The data comes from all [facility]] facilities. Appointment Date/Time Appointment Type Appointme nt Facility Name December 07, 2023 07:00 AM AMBULATORY - NONE [place] [facility] Dec 25, 2023 02:20 PM AMBULATORY - SURGERY [place] [facility] Dec 25, 2023 [...] 13, 2024 03:00 PM AMBULATORY - NONE [facility] Jan 21, 2024 11:30 AM AMBULATORY - MEDICINE [facility] Feb 04, 2024 01:30 PM AMBUL[place]ORY - [place]ICINE [place] [facility] Feb 04, 2024 02:30 PM AM[place]UL[place]ORY - [place]ICINE [place] [facility] Feb 11, 2024 02:30 PM AM[place]UL[place]ORY - [place]ICINE [place] [facility] Feb 12, 2024 12:30 PM AMBULATORY - NONE [place] [facility] Feb 12, 2024 01:30 PM AMBUL[place]ORY - [place]GERY [place] [facility] Feb 12, 2024 03:00 PM AMBUL[place]ORY - [place]GERY [place] [facility] Feb 19, 2024 02:15 PM AM[place]ULATORY - [place]ICINE [place] [facility] Feb 26, 2024 10:00 AM AMBULATORY - NONE [facility] Active, Pending, and Scheduled Orders This section includes a listing of several types of active, pending, and scheduled orders, including clinic medications orders, diagnostic test orders, procedure orders and consult orders; where the start date of the order is 45 days before the date of the Encounter or 45 days after the date of theEncounter. The data comes from all [place] treatment facilities. Test Date/Time Test Type Test Details Facility Name Nov 05, 2023 12:00 AM Laboratory - Chemi stry Order OCCULT BLOOD FIT X1 SCREEN STOOL FECES SP ONCE [facility] Jan 06, 2024 12:00 AM Laboratory - [...] Result - Unit Interpretation Reference Range Comment Dec 30, 2023 11:00 AM [facility] .OCCULT BLOOD(FIT) Specimen Type: FECES No comment entered. Ordering Provider: HOLLI ANDUJAR Report Released Date/Time: Dec 30, 2023 11:00 AM Reporting Lab: [facility] [id number] Performing Lab: [place] [id number] .OCCULT BLOOD(FIT ) POSITIVE Social History: Smoking Status (Most current) [...] this document. The data comes from all [place] facilities. Date Advance Directives Provider Source Jan 02, 2023 STATE-AUTHORIZED PORTABLE ORDERS [facility] Encounter Notes: All associated encounter notes This section contains the clinical notes associated to the Encounter. Date/Time Encounter Note(s) Provider Source December 01, 2023 02:23 PM OPHTHALMOLOGY CONSULT: LOCAL TITLE: OPHTHALMOLOGY IMAGING [facility] OUTPT CONSULT STANDARD TITLE: OPHTHALMOLOGY CONSULT DATE OF NOTE: DECEMBER 01, 2023@14:23 ENTRY DATE: DECEMBER 01, 2023@14:23:45 AUTHOR: YANIV VIERA EXP COSIGNER: URGENCY: STATUS: COMPLETED Requested test(s) done, OCT of rNFL OU R/G and A/F imaging done w/Optos OU results uploaded to room server for review. /mateo/ CHRISTIE NÚÑEZ CRA Channel Opener Signed: 12/01/2023 14:24 YANIV VIERA [facility] December 01, 2023 01:22 PM OPHTHALMOLOGY ATTENDING NOTE: LOCAL TITLE: OPHTHALMOLOGY CLINIC NOTE STANDARD TITLE: OPHTHALMOLOGY ATTENDING NOTE DATE OF NOTE: DECEMBER 01, 2023@13:22 ENTRY DATE: DECEMBER 01, 2023@13:22:19 AUTHOR: ROSEANN GAMA EXP COSIGNER: URGENCY: STATUS: COMPLETED OPHTHALMOLOGY CLINIC NOTE Has [facility] OPHTHALMOLOGY Follow up CLINIC HPI: is here because he thinks he is getting a cataract. vision in right eye is blurred, like a film over it. last exam was 5 years ago and it wasnt much of an exam. when reading he uses readers but they dont even help much, its like there is a blurred spot right in the middle of the page, has to move his eye off to the side. Ex- sister's is corneal doc in [facility]: K[facility] Rice. Vision blurry OD all the time; blinking and rubbing does not help - started gradually worsening over time not suddenly - going on for years. VAsc OD: 20/40-1 Pinhole: 20/NI 0S: 20/25-2 Pinhole: 20/ MRX OD:-0.50 X 20/40-1 OS:+0.50 X 20/20-3 Add: +2.50 Near vision: OU 20/20 Intra-ocular pressure (IOP): OD: 13 OS: 13 iCare Exam: SLE (OU unless indicated) lids/lashes: floppy [...] 1-2+ NS, small vacuole anterior vitreous: clear DFE (OU unless indicated): vitreous: vitreous condensates OS optic nerve: 0.3 cup/disc, pink and healthy macula: sharp foveal light reflex; 0.5DD CN ST [place] peripapillary vessels: normal caliber and distribution periphery: normal without holes or tears; OS temporal DBH x1 Impression/Plan: # Blurry vision OD - Gradually worsening over 5 years, constant - exam with many vacuoles, suspect this is source of his blurry vision as he has no lesions on his retina. - OCT mac/RNFL, optos OU on way out - RTC cat eval OD 1-4 weeks # Intraretinal hemorrhage OS - History of T2DM. One DBH OS today; on ozempic for weightloss; also on Empagliflozin; also has history of HF. No anemia 06/2023. History of HTN but well controlled per patient. 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 patient asymptomatic. Monitor. 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 Patient dilated. Staff: Dr. Espinoza /mateo/ ROSEANN GAMA MD RESIDENT Signed: 12/01/2023 13:43 12/02/2023 ADDENDUM STATUS: COMPLETED Patient with OD optic atrophy and OD RAPD. Lost 17lb since starting Ozempic but no night sweats, fevers, or chills. No focal numbness, weakness, or tingling. Spoke with patinet to recommend imaging. Will place CT vs MRI pending timing discussion with Dr. Espinoza. /mateo/ ROSEANN GAMA MD RESIDENT Signed: 12/02/2023 07:39 12/02/2023 ADDENDUM STATUS: COMPLETED Discussed with Dr. Espinoza who agress with plan for MRI brain/orbits wwo con within 2 weeks. /mateo/ ROSEANN GAMA MD RESIDENT Signed: 12/02/2023 10:10 ROSEANN GAMA [facility] December 01, 2023 01:07 PM OPHTHALMOLOGY CONSULT: LOCAL TITLE: OPHTHALMOLOGY IMAGING [facility] OUTPT CONSULT STANDARD TITLE: OPHTHALMOLOGY CONSULT DATE OF NOTE: DECEMBER 01, 2023@13:07 ENTRY DATE: DECEMBER 01, 2023@13:07:48 AUTHOR: YANIV VIERA EXP COSIGNER: URGENCY: STATUS: COMPLETED Requested test(s) done, OCT of maculae OU results uploaded to room server for review. /CHRISTIE Garcia CRA Channel Opener Signed: 12/01/2023 13:08 YANIV VIERA [facility] December 01, 2023 12:37 PM [employer] HRMS DEVELOPER NOTE: LOCAL TITLE: [employer] HRMS DEVELOPER NOTE STANDARD TITLE: [employer] HRMS DEVELOPER NOTE DATE OF NOTE: DECEMBER 01, 2023@12:37 ENTRY DATE: DECEMBER 01, 2023@12:37:25 AUTHOR: VEL HOYT EXP COSIGNER: URGENCY: STATUS: COMPLETED Eye Start Exam Patient: GILDA CARRILLO Sex: MALE SSN: [id number] Birthdate: [birth year] Chief complaint: is here because he thinks he is getting a cataract. vision in right eye is blurred, like a film over it. last exam was 5 years ago and it wasnt much of an exam. when reading he uses readers but they dont even help much, its like there is a blurred spot right in the middle of the page, has to move his eye off to the side Active Problems List: Active problems - Computerized Problem List is the source for the followin. Hypertension (SNOMED CT 45156462) 2. Tachycardia - EKG 04/24/[address] no acute ST or T wave changes 3. Chronic back pain (SNOMED CT 707987569) - s/p laminectomy L2-4 '00 - disability parking permit application completed 03/10/18 with exp date 03/2023 4. Other and unspecified alcohol dependence, unspecified drinking behavior 5. Tobacco use (SNOMED CT 055028121) - quit >25yr use 6. SCREEN - c scope - AAA due 65-75 - DEXA due >70 7. 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 SURGERY Hx - laminectomy L2-4 '00 - tonsilectomy - adenoidectomy - R tympanoplasty 9. LUNG LESION - incidental on c-xray 04/21/12 ER @[place] - CT chest 05/01/12 @[place] - CT chest 05/25/12 @[place] lung nodules, new effusion, rib frx - [...] 12. Solitary nodule of lung (SNOMED CT 873432534) 13. Chronic obstructive lung disease - PFT done 08/28/15 @[facility] 14. Degenerative joint disease - CT 06/08/2016; bilateral hips mod/severe 15. Benign localized hyperplasia of prostate 16. Arthritis of right hip 17. Lumbar spondylosis 18. Bilateral foot pain 19. Psoriasis 20. Venous stasis edema of bilateral lower limbs 21. Lipodermatosclerosis 22. Diabetes Mellitus Type 2 (SCT 96807644) 23. Diastolic dysfunction 24. Paroxysmal atrial fibrillation 25. Long-term current use of anticoagulant 26. Persistent atrial fibrillation 27. Exposure to potentially hazardous substance ([facility] [id number]) - Entered through [facility]/VISN23 TARAN Documentation Initiative 28. Drug monitoring done Surgeries: JUL 09, 2023 Proc: [facility] JAN 22, 2023 Proc: [facility] Full Exam Eye Medications Patient denies eye medication use. Allergies: Patient has answered NKA No new Allergies. Past Medical History: Hypertension Past eye history: Denies all Past eye surgeries: Denies all Social History: Alcohol use - Yes Tobacco use - No Family History: Eye disease: not that he knows of Vision: OD:SC(without glasses) OD: 20/40-1 Pinhole: 20/NI Near: 20/ Vision: OS:SC(without glasses) 0S: 20/25-2 Pinhole: 20/ Near: 20/ Refraction: Manifest: YES Automated: NO OD:-0.50 X 20/40-1 OS:+0.50 X 20/20-3 Add: +2.50 Near vision: OU 20/20 Comment: Confrontational Squires: Full to finger counting: Right: Yes Left: Yes Extra Ocular Movement: Normal Pupils: Right: Round Left: Round Size: Right: 5 Left: 5 React to light: Right: Yes Left: Yes Afferent pupil defect: Right:Yes Grade: Left: No Grade: Note: Intra-ocular pressure (IOP): OD: 13 OS: 13 iCare Dilation: mydriacyl 1% and neosynephrine OU November@12:50 /mateo/ VEL HOYT INTENSIVE CARE NURSE Signed: 12/01/2023 12:51 MARIANNE HOYT [facility]
--- OUTSIDE RECORDS SUMMARY | 2024-03-25 10:36 | XMS_ITS | Encounter Summary ---
Author Name [facility] [place] [facility] [place] [facility] [place] Address [address] [place] [address] Care Team Providers Care Insights Strategist Name Role Phone GELACIO MICHEL Primary Care [...] PART A Jul 21, 2014 PART A [id number] Miguelito CARRILLO PATIENT Selected Encounter This section includes the information on record at [place] for the Encounter. Date/Time Encounter Type Encounter Description Reason Provider Source December 18, 2023 06:44 PM Outpatient Encounter HT NON-VIDEO MONITORING ICD-10-CM I50.9 Heart failure, unspecified PARAS BOWDEN [facility] Encounter Template Text not used by [place] Assessments - Encounter Diagnoses This section includes the primary and secondary diagnoses documented for the Encounter. Date/Time Primary/Secondary Diagnosis Diagnosis Name Provider Source December 18, 2023 06:46 PM PRIMARY Heart failure, unspecified ELLA BOWDEN [facility] Plan of Treatment: Future Appointments (+ 6 months) and Future Tests (+/- 45 days) The Plan of Treatment section includes future care activities for the patient [facility] [facility] This section includes future appointments and future orders which are active, pending or scheduled. Future Appointments This section includes appointments that were scheduled to occur 6 months from the date of the Encounter, up to a maximum of 20 appointments. The data comes from all [facility] facilities. Appointment Date/Time Appointment Type Appointme nt Facility Name Dec 25, 2023 02:20 PM AMBULATORY - SURGERY [facility] Dec 25, 2023 02:45 PM AMBULATORY - SURGERY [facility] Dec 30, 2023 01:30 PM AMBULATORY - SURGERY [facility] Jan 06, 2024 12:30 PM [facility] Jan 06, 2024 01:00 PM [facility] Jan 06, 2024 02:00 PM [facility] Jan 06, 2024 02:45 PM [facility] Jan 08, 2024 07:45 PM [facility] Jan 12, 2024 01:15 PM AM[facility] SUR[facility] Jan 13, 2024 03:00 PM AMBULATORY - NONE [facility] Jan 21, 2024 11:30 AM [facility] Feb 04, 2024 01:30 PM [facility] Feb 04, 2024 02:30 PM [facility] Feb 11, 2024 02:30 PM [facility] Feb 12, 2024 12:30 PM [facility] Feb 12, 2024 01:30 PM [facility] Feb 12, 2024 03:00 PM AMBUL[facility] SUR[facility] Feb 19, 2024 02:15 PM [facility] [place]IC[place] [facility] Feb 26, 2024 10:00 AM AMBULATORY - NONE [facility] Mar 29, 2024 01:00 PM AMBULATORY - SURGERY [facility] Active, Pending, and Scheduled Orders This section includes a listing of several types of active, pending, and scheduled orders, including clinic medications orders, diagnostic test orders, procedure orders and consult orders; where the start date of the order is 45 days before the date of the Encounter or 45 days after the date of theEncounter. The data comes from all [place] treatment facilities. Test Date/Time Test Type Test Details Facility Name Nov 05, 2023 12:00 AM Laboratory - Chemi stry Order OCCULT BLOOD FIT X1 SCREEN STOOL FECES SP ONCE [facility] Jan 06, 2024 12:00 AM Laboratory - Chemi stry Order BNP PLASMA SP ONCE [facility] Lab Results: +/- 30 days of the encounter This section includes the Chemistry and Hematology Lab Results on record with [place] for the patient. Radiology Reports and Pathology Reports are provided separately, in subsequent sections. Lab Results This section contains the Chemistry/Hematology Results that were resulted 30 days before or 30 daysafter the date of the Encounter. Date/Time Source Result Type Result - Unit Interpretation Reference Range Comment Jan 06, 2024 03:40 PM [facility] COVID-19 DIAGNOSTIC PANEL (BIOFIRE) Specimen Type: NASOPHARYNGEAL Comment: Biofire Jef (942) Ordering Provider: ROXANNE BUCKLEY Report Released Date/Time: Jan 06, 2024 03:22 PM Reporting Lab: [facility] [id number] Performing Lab: [facility] [id number] C PNEUMONIAE PCR NOT DETECTED NOT DETECTED [...] NOT DETECTED Jan 06, 2024 03:22 PM [facility] POC CREATININE Specimen Type: BLOOD No comment entered. Ordering Provider: ALLISON PARRA Report Released Date/Time: Jan 06, 2024 03:24 PM Reporting Lab: [facility] [phone] Performing Lab: [facility] [phone] POC CREATININE 1.5 mg/dL 0.6-1.3 Jan 06, 2024 03:19 PM [facility] POC ABG/LACTATE Specimen Type: VENOUS BLOOD No comment entered. Ordering Provider: ALLISON PARRA Report Released Date/Time: Jan 06, 2024 03:24 PM Reporting Lab: [facility] [id number] Performing Lab: [facility] [address] POC PH 7.402 7.31-7.41 POC PCO2 50.1 mm[Hg] 41-51 POC PO2 24 mm[Hg] POC TCO2 33 mmol/L 24-29 POC HCO3 31.2 mmol/L 23-28 POC BE ECT 6 mmol/L -2-3 POC SO2 41 POC LACTATE <1.6 mmol/L 0.90-1.70 Jan 06, 2024 03:14 PM [facility] EXTRA BLUE TUBE Specimen Type: PLASMA No comment entered. Ordering Provider: ROXANNE BUCKLEY Report Released Date/Time: Jan 06, 2024 03:36 PM Reporting Lab: [facility] [address] Performing Lab: [facility] [address] EXTRA BLUE TUBE RECEIVED Jan 06, 2024 03:14 PM [facility] BNP Specimen Type: PLASMA No comment entered. Ordering Provider: ROXANNE BUCKLEY Report Released Date/Time: Jan 06, 2024 03:22 PM Reporting Lab: [facility] [phone] Performing Lab: [facility] [address] BNP 18 pg/mL <99 Jan 06, 2024 03:14 PM [facility] TROPONIN I, HS Specimen Type: PLASMA No comment entered. Ordering Provider: ROXANNE BUCKLEY Report Released Date/Time: Jan 06, 2024 03:22 PM Reporting Lab: [facility] [address] Performing Lab: [facility] [address] TROPONIN I, HS <3 <35 Jan 06, 2024 03:14 PM [facility] EXTRA GOLD GEL TUBE Specimen Type: SERUM No comment entered. Ordering Provider: ROXANNE BUCKLEY Report Released Date/Time: Jan 06, 2024 03:36 PM Reporting Lab: [facility] [phone] Performing Lab: [facility] [phone] EXTRA GOLD GEL TUBE RECEIVED Jan 06, 2024 03:14 PM [facility] CBC & DIFF Specimen Type: BLOOD Comment: Automated Differential Performed Ordering Provider: ROXANNE BUCKLEY Report Released Date/Time: Jan 06, 2024 03:22 PM Reporting Lab: [facility] [address] Performing Lab: [facility] [address] WBC 11.27 10*3/uL H 4.0-11.0 RBC 4.81 [...] 10*3/uL 0-0.1 Jan 06, 2024 11:57 AM [facility] BASIC METABOLIC PANEL+MG Specimen Type: PLASMA No comment entered. Ordering Provider: HITESH HOLGUIN Report Released Date/Time: Oct 07, 2023 02:47 PM Reporting Lab: [facility] [address] Performing Lab: [facility] [address] CREATININE 1.0 mg/dL 0.7-1.2 UREA NITROGEN 16 mg/dL 8-26 GLUCOSE 112 mg/dL H 70-100 SODIUM 137 mmol/L 136-145 POTASSIUM 4.1 mmol/L 3.5-5.1 CHLORIDE 101 mmol/L 98-107 CO2 26 mmol/L 22-29 CALCIUM 9.6 mg/dL 8.4-10.2 MAGNESIUM 2.4 mg/dL 1.6-2.6 ANION GAP 10 mmol/L 5-15 .CREAT EGFR(CKD-EPI) 79 >60 Dec 30, 2023 11:00 AM [facility] .OCCULT BLOOD(FIT) Specimen Type: FECES No comment entered. Ordering Provider: SRUTHI ANDUJAR Report Released Date/Time: Dec 30, 2023 11:00 AM Reporting Lab: [facility] [phone] Performing Lab: [place] [id number] .OCCULT BLOOD(FIT) POSITIVE Social History: Smoking Status (Most current) and Tobacco Use (All prior to encounter date) This section includes the most current, and the historical, smoking and tobacco- related health factors from the [place] facility where the Encounter took place. Current Smoking Status This section includes the most current smoking, or tobacco-related health factor, from the [place] facility where the Encounter took place. Date/Time Current Smoking Status Comment Tasha woods Dec 19, 2020 12:07 PM VA-TOBACCO FORMER USER [facility] Tobacco Use History This section includes a history of the smoking, or tobacco-related health factors, that were collected on or before the date of the Encounter. The data comes from the [place] facility where the Encounter took place. Date/Time Smoking Status/Tobacco Use Comment F acamelia Dec 19, 2020 12:07 PM [place]-TOBACCO QUIT 5 TO < 15 YRS [facility] Aug 02, 2015 09:49 AM CURRENT TOBACCO USER [facility] Jun 06, 2014 08:51 AM CURRENT TOBACCO USER [facility] May 04, 2013 09:29 AM CURRENT TOBACCO USER [facility] Apr 24, 2012 07:40 AM CURRENT TOBACCO USER [facility] Advance Directives: All historical and current Section Date Range: From patient's date of to the date document was created. This section includes ALL of a patient's completed or amended [place] Advance and Rescinded Directives. The entries below indicate that a directive exists for the patient, but an actual copy is not included with this document. The data comes from all [place] facilities. Date Advance Directives Provider Source Jan 02, 2023 STATE-AUTHORIZED PORTABLE ORDERS NATALYA GonzalezPHOENIXKRISTY PAK [facility] Radiology Reports: +/- 30 days of [...] the Encounter. The data comes from all [place] treatment facilities. Date/Time Radiology Report Provider Source Jan 08, 2024 08:00 PM MRI-BRAIN (P): GILDA CARRILLO CLAUDIA [id number] -1950 [facility] Date: JAN 08, 2024@20:00 Req Phys: ROSEANN GAMA Loc: [facility] EYE RESIDENT FOL/UP (Req'g Img Loc: MRI IMAGING Service: [place] [address] (Case [id number] COMPLETE) MRI BRAINBRAINSTEM W & W/O CONTRA(MRI Detailed) CPT:55968 Contrast Media : Gadolinium Reason for Study: gradual right eye vision loss over with right optic nerve atroph (Case [id number] COMPLETE) MRI NECK/FACE/ORBIT W/CONTRAST (MRI Detailed) CPT:58177 Contrast Media : Gadolinium Clinical History: Per Joint Commission Standards, by signing this diagnostic imaging request the ordering provider confirms they have considered patients age and recent imaging history. Did the ordering provider speak with a technology methodology consultant regarding this imaging exam? Yes, Name of technology methodology consultant (resident or staff):Chidi Espinoza MD gradual right eye vision loss over with right optic nerve atrophy on exam concerning for compressive mass on optic nerve pathway Responsible provider name and phone number to notify for critical findings if other than user placing the order and pager listed below: User placing orders pager: [phone] LAST CREATININE 1.2 (10/07/23) Allergies: Patient has answered NKA Report Status: Verified Date Reported: JAN 09, 2024 Date Verified: JAN 09, 2024 Finance Business Manager E-Sig:/ES/OSBALDO RODGERS MD Report: MRI BRAINBRAINSTEM W [...] Primary Interpreting Staff: OSBALDO RODGERS MD, RADIOLOGIST (Finance Business Manager) /FORMERLY NAMED [facility] OSBALDO RODGERS [facility] Jan 06, 2024 03:24 PM CHEST 1 VIEW: GILDA CARRILLO RAY [id number] -1950 M Exm Date: JAN 06, 2024@15:24 Req Phys: ANNI BUCKLEY Alber Pat Loc: [facility] EMERGENCY DEPT WALK-IN (Re Img Loc: MAIN X-RAY Service: [place] [address] (Case [id number] COMPLETE) CHEST 1 VIEW (RAD Detailed) CPT:22726 Proc Modifiers : PORTABLE EXAM Reason for [...] 06, 2024 Date Verified: JAN 06, 2024 Finance Business Manager E-Sig:/ES/BHARAT PARKER MD Report: EXAMINATION: CHEST 1 [...] Primary Interpreting Staff: BHARAT PARKER MD, RADIOLOGIST (Finance Business Manager) /BHARAT TSAI [facility] Encounter Notes: All associated encounter notes This section contains the clinical notes associated to the Encounter. Date/Time Encounter Note(s) Provider Source December 18, 2023 06:44 PM CARE COORDINATION HOME TELEHEALTH SUMMARIZATION NOTE: LOCAL TITLE: HT MONTHLY MONITOR NOTE STANDARD TITLE: CARE COORDINATION HOME TELEHEALTH SUMMARIZATION DATE OF NOTE: DECEMBER 18, 2023@18:44 ENTRY DATE: DECEMBER 18, 2023@18:44:29 AUTHOR: ELLA BOWDEN EXP COSIGNER: URGENCY: STATUS: COMPLETED The [place] is enrolled in the Home Telehealth (HT) program and continues to be monitored via HT technology. The data sent by the is reviewed and analyzed by the HT staff, who provide ongoing case management and [place] health education while communicating and collaborating with the health care team as appropriate. This note covers a total of 30 minutes for the month monitored. Month monitored: November/ ELLA BOWDEN RN Chronic Computer Peripheral Equipment Operator/HT Signed: 12/18/2023 18:46 ELLA BOWDEN [facility]
--- OUTSIDE RECORDS SUMMARY | 2024-03-25 10:36 | XMS_ITS | Encounter Summary ---
Author Name [facility] Address [address] [place] [address] Care Team Providers Care Tub Tender Name Role Phone GELACIO MICHEL Primary Care [...] PART A Jul 21, 2014 PART A [id number] Miguelito CARRILLO PATIENT Selected Encounter This section includes the information on record at [place] for the Encounter. Date/Time Encounter Type Encounter Description Reason Provider Source Dec 25, 2023 02:20 PM OFF/OP EST NOVEMBER X REQ PHY/QHP OPHTHALMOLOGY ICD-10-CM H53.9 Unspecified visual disturbance SANJANA BULLOCK Homero Encounter Template Text not used by [place] Assessments - Encounter Diagnoses This section includes the primary and secondary diagnoses documented for the Encounter. Date/Time Primary/Secondary Diagnosis Diagnosis Name Provider Source Dec 25, 2023 02:44 PM PRIMARY Unspecified visual disturbance SANJANA BULLOCK [facility] Plan of Treatment: Future Appointments (+ 6 months) and Future Tests (+/- 45 days) The Plan of Treatment section includes future care activities for the [facility] [place] [facility] This section includes future appointments and future orders which are active, pending or scheduled. Future Appointments This section includes appointments that were scheduled to occur 6 months from the date of the Encounter, up to a maximum of 20 appointments. The data comes from all [facility]. Appointment Date/Time Appointment Type Appointme nt Facility Name Dec 30, 2023 01:30 PM [facility] [place] [facility] [facility] Jan 06, 2024 12:30 PM [place] [facility] Jan 06, 2024 01:00 PM [place] [place] [facility] [facility] Jan 06, 2024 02:00 PM [place] [place] [facility] Jan 06, 2024 02:45 PM [facility] Jan 08, 2024 07:45 PM [facility] [facility] Jan 12, 2024 01:15 PM [facility] Jan 13, 2024 03:00 PM [facility] - N[facility] Jan 21, 2024 11:30 AM [facility] Feb 04, 2024 01:30 PM [facility] Feb 04, 2024 02:30 PM [place] [place] [facility] Feb 11, 2024 02:30 PM [place] [place] [facility] Feb 12, 2024 12:30 PM [facility] [place] [facility] Feb 12, 2024 01:30 PM [facility] Feb 12, 2024 03:00 PM [facility] Feb 19, 2024 02:15 PM [facility] [place] [facility] Feb 26, 2024 10:00 AM AM[facility]ATORY - NONE [facility] Mar 29, 2024 01:00 PM [facility] Mar 29, 2024 02:00 PM AM[facility] - SUR[facility]ERY [facility] Mar 30, 2024 08:30 AM [facility] Active, Pending, and Scheduled Orders [...] Chemi stry Order BNP PLASMA SP ONCE [facility] Lab Results: +/- 30 days [...] Range Comment Jan 06, 2024 03:40 PM [facility] COVID-19 DIAGNOSTIC PANEL (BIOFIRE) Specimen Type: NASOPHARYNGEAL Comment: Biofire Jef (078) Ordering Provider: ROXANNE BUCKLEY Report Released Date/Time: Jan 06, 2024 03:22 PM Reporting Lab: [facility] [address] Performing Lab: [facility] [address] C PNEUMONIAE PCR NOT DETECTED NOT DETECTED [...] NOT DETECTED Jan 06, 2024 03:22 PM [facility] POC CREATININE Specimen Type: BLOOD No comment entered. Ordering Provider: ALLISON PARRA Report Released Date/Time: Jan 06, 2024 03:24 PM Reporting Lab: [facility] [address] Performing Lab: [facility] [address] POC CREATININE 1.5 mg/dL 0.6-1.3 Jan 06, 2024 03:19 PM [facility] POC ABG/LACTATE Specimen Type: VENOUS BLOOD No comment entered. Ordering Provider: ALLISON PARRA Report Released Date/Time: Jan 06, 2024 03:24 PM Reporting Lab: [facility] [address] Performing Lab: [facility] [address] POC PH 7.402 7.31-7.41 POC PCO2 50.1 mm[Hg] 41-51 POC PO2 24 mm[Hg] POC TCO2 33 mmol/L 24-29 POC HCO3 31.2 mmol/L 23-28 POC BE ECT 6 mmol/L -2-3 POC SO2 41 POC LACTATE <1.6 mmol/L 0.90-1.70 Jan 06, 2024 03:14 PM [facility] EXTRA BLUE TUBE Specimen Type: PLASMA No comment entered. Ordering Provider: ROXANNE BUCKLEY Report Released Date/Time: Jan 06, 2024 03:36 PM Reporting Lab: [facility] [address] Performing Lab: [facility] [address] EXTRA BLUE TUBE RECEIVED Jan 06, 2024 03:14 PM [facility] BNP Specimen Type: PLASMA No comment entered. Ordering Provider: ROXANNE BUCKLEY Report Released Date/Time: Jan 06, 2024 03:22 PM Reporting Lab: [facility] [address] Performing Lab: [facility] [address] BNP 18 pg/mL <99 Jan 06, 2024 03:14 PM [facility] TROPONIN I, HS Specimen Type: PLASMA No comment entered. Ordering Provider: ROXANNE BUCKLEY Report Released Date/Time: Jan 06, 2024 03:22 PM Reporting Lab: [facility] [address] Performing Lab: [facility] [address] TROPONIN I, HS <3 <35 Jan 06, 2024 03:14 PM [facility] EXTRA GOLD GEL TUBE Specimen Type: SERUM No comment entered. Ordering Provider: ROXANNE BUCKLEY Report Released Date/Time: Jan 06, 2024 03:36 PM Reporting Lab: [facility] [address] Performing Lab: [facility] [address] EXTRA GOLD GEL TUBE RECEIVED Jan 06, 2024 03:14 PM [facility] CBC & DIFF Specimen Type: BLOOD Comment: Automated Differential Performed Ordering Provider: ROXANNE BUCKLEY Report Released Date/Time: Jan 06, 2024 03:22 PM Reporting Lab: [facility] [address] Performing Lab: [facility] [address] WBC 11.27 10*3/uL H 4.0-11.0 RBC 4.81 [...] 10*3/uL 0-0.1 Jan 06, 2024 11:57 AM [facility] BASIC METABOLIC PANEL+MG Specimen Type: PLASMA No comment entered. Ordering Provider: HITESH HOLGUIN Report Released Date/Time: Oct 07, 2023 02:47 PM Reporting Lab: [facility] [address] Performing Lab: [facility] [address] CREATININE 1.0 mg/dL 0.7-1.2 UREA NITROGEN 16 mg/dL 8-26 GLUCOSE 112 mg/dL H 70-100 SODIUM 137 mmol/L 136-145 POTASSIUM 4.1 mmol/L 3.5-5.1 CHLORIDE 101 mmol/L 98-107 CO2 26 mmol/L 22-29 CALCIUM 9.6 mg/dL 8.4-10.2 MAGNESIUM 2.4 mg/dL 1.6-2.6 ANION GAP 10 mmol/L 5-15 .CREAT EGFR(CKD-EPI) 79 >60 Dec 30, 2023 11:00 AM [facility] .OCCULT BLOOD(FIT) Specimen Type: FECES No comment entered. Ordering Provider: SRUTHI ANDUJAR Report Released Date/Time: Dec 30, 2023 11:00 AM Reporting Lab: [facility] [address] Performing Lab: [facility] [address] [address] .OCCULT BLOOD(FIT) POSITIVE HH Social History: Smoking Status (Most current) and [...] Tasha woods Dec 19, 2020 12:07 PM [place]-TOBACCO QUIT 5 TO < 15 YRS [facility] Tobacco Use History This section includes a history of the smoking, or tobacco-related health factors, that were collected on or before the date of the Encounter. The data comes from the [place] facility where the Encounter took place. Date/Time Smoking Status/Tobacco Use Comment F wendi Dec 19, 2020 12:07 PM [place]-TOBACCO QUIT 5 TO < 15 YRS [facility] Aug 02, 2015 09:49 AM CURRENT TOBACCO USER [facility] Jun 06, 2014 08:51 AM CURRENT TOBACCO USER [facility] May 04, 2013 09:29 AM CURRENT TOBACCO USER [facility] Apr 24, 2012 07:40 AM CURRENT TOBACCO USER [facility] Advance Directives: All historical and [...] Jan 02, 2023 STATE-AUTHORIZED PORTABLE ORDERS NATALYA CarlosPHOENIX Alber [facility] Radiology Reports: +/- 30 days of [...] comes from all [place] treatment facilities. 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 Did the ordering provider speak with a data virtualization consultant regarding this imaging exam? 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 Responsible provider name and phone number to notify for critical findings if other than user placing the order and pager listed below: User placing orders pager: [phone] LAST CREATININE 1.2 (10/07/23) Allergies: Patient has answered NKA Report Status: Verified Date Reported: JAN 09, 2024 Date Verified: JAN 09, 2024 Stave Cutting Supervisor E-Sig:/ES/OSBALDO RODGERS MD Report: MRI BRAINBRAINSTEM W [...] Primary Interpreting Staff: OSBALDO RODGERS MD, RADIOLOGIST (Stave Cutting Supervisor) /[facility] OSBALDO RODGERS [facility] Jan 06, 2024 03:24 PM CHEST 1 VIEW: GILDA CARRILLO RAY [id number] -1950 M Exm Date: JAN 06, 2024@15:24 Req Phys: ANNI BUCKLEY Pat Loc: [facility] EMERGENCY DEPT WALK-IN (Re Img Loc: MAIN X-RAY Service: [place] [address] (Case [id number] COMPLETE) CHEST 1 VIEW (RAD Detailed) CPT:83337 Proc Modifiers : PORTABLE EXAM Reason for Study: Shortness of breath, cough Clinical History: [place] IS under investigation ([facility]I) for COVID-19 or [...] 06, 2024 Date Verified: JAN 06, 2024 Stave Cutting Supervisor E-Sig:/ES/BHARAT PARKER MD Report: EXAMINATION: CHEST 1 [...] Primary Interpreting Staff: BHARAT PARKER MD, RADIOLOGIST (Stave Cutting Supervisor) /BHARAT TSAI [facility] Encounter Notes: All associated encounter notes This section contains the clinical notes associated to the Encounter. Date/Time Encounter Note(s) Provider Source Dec 25, 2023 02:38 PM OPHTHALMOLOGY TECH NICIAN NOTE: LOCAL TITLE: VOICE PATHOLOGIST NOTE STANDARD TITLE: VOICE PATHOLOGIST NOTE DATE OF NOTE: DEC 25, 2023@14:38 ENTRY DATE: DEC 25, 2023@14:38:12 AUTHOR: SANJANA BULLOCK EXP COSIGNER: URGENCY: STATUS: COMPLETED HVF 24-2 completed today OU- VERY DIFFICULT TO GET IN MACHINE AND TRANSFER CHAIRS- HARD TIME KEEPING [facility]* HAD TO RE- ADJUST AND PAUSE MULTIPLE TIMES. -Turned fixation off left eye -Patient states this is very tough on my neck /mateo/ SANJANA BULLOCK HUMAN RESOURCES MANAGER MANUFACTURING Signed: 12/25/2023 14:45 SANJANA BULLOCK [facility]
--- OUTSIDE RECORDS SUMMARY | 2024-03-25 10:37 | XMS_ITS | Encounter Summary ---
Author Name [facility] [place] Organization [facility] [place] Address [address] [place] [address] Care Team Providers Care Diamond Mounter Name Role Phone GELACIO MICHEL Primary Care [...] PART A Jul 21, 2014 PART A [id number] [phone] Miguelito CARRILLO PATIENT Selected Encounter This section includes the information on record at [place] for the Encounter. Date/Time Encounter Type Encounter Description Reason Provider Source Jan 06, 2024 02:00 PM OFFICE O/P EST HI 40 MIN CARDIOLOGY ICD-10-CM I48.19 Other persistent atrial fibrillation HITESH HOLGUIN [facility] Encounter Template Text not used by [place] Assessments - Encounter Diagnoses This section includes the primary and secondary diagnoses documented for the Encounter. 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 This section includes future appointments and future orders which are active, pending or scheduled. Future Appointments This section includes appointments that were scheduled to occur 6 months from the date of the Encounter, up to a maximum of 20 appointments. The data comes from all [facility]. Appointment Date/Time Appointment Type Appointme nt Facility Name Jan 08, 2024 07:45 PM [facility] Jan 12, 2024 01:15 PM AMBULATORY - SURGERY [facility] Jan 13, 2024 03:00 PM AMBULATORY - NONE [facility] Jan 21, 2024 11:30 AM AM[facility]ULATORY - MEDICINE [facility] Feb 04, 2024 01:30 PM [facility] Feb 04, 2024 02:30 [facility] Feb 11, 2024 02:30 [facility] Feb 12, 2024 12:30 PM [facility] Feb 12, 2024 01:30 PM [facility] Feb 12, 2024 03:00 PM [facility] Feb 19, 2024 02:15 PM [facility] Feb 26, 2024 10:00 AM AMBULATORY - NONE [facility] Mar 29, 2024 01:00 PM AM[facility] Mar 29, 2024 02:00 PM AMBULATORY - SURGERY [facility] Mar 30, 2024 08:30 AM AMBULATORY - REHAB MEDICIN E [facility] Apr 01, 2024 10:00 AM AMBULATORY - NONE [facility] Apr 12, 2024 10:15 AM [facility] Apr 13, 2024 01:15 PM [facility] Apr 13, 2024 01:30 PM AMBULATORY - MEDICINE [facility] Apr 13, 2024 02:00 PM [facility] [...] of theEncounter. The data comes from all [place] treatment facilities. Test Date/Time Test Type Test Details Facility Name Jan 06, 2024 12:00 AM Laboratory - Chemi stry Order BNP PLASMA SP ONCE [facility] Lab Results: +/- 30 days [...] - Unit Interpretation Reference Range Comment Feb 04, 2024 01:40 PM [facility] BNP Specimen Type: PLASMA No comment entered. Ordering Provider: JACOB VIRGEN Report Released Date/Time: Aug 13, 2023 11:38 AM Reporting Lab: [facility] [phone] Performing Lab: [facility] [phone] BNP 23 pg/mL <99 Feb 04, 2024 01:40 PM [facility] BASIC METABOLIC PANEL+MG Specimen Type: PLASMA No comment entered. Ordering Provider: JACOB VIRGEN Report Released Date/Time: Aug 13, 2023 11:38 AM Reporting Lab: [facility] [phone] Performing Lab: [facility] [phone] CREATININE 1.2 mg/dL 0.7-1.2 UREA NITROGEN 18 mg/dL 8-26 GLUCOSE 102 mg/dL H 70-100 SODIUM 140 mmol/L 136-145 POTASSIUM 4.1 mmol/L 3.5-5.1 CHLORIDE 102 mmol/L 98-107 CO2 27 mmol/L 22-29 CALCIUM 10.0 mg/dL 8.4-10.2 MAGNESIUM 2.3 mg/dL 1.6-2.6 ANION GAP 11 mmol/L 5-15 .CREAT EGFR(CKD-EPI) 63 >60 Jan 06, 2024 03:40 PM [facility] COVID-19 DIAGNOSTIC PANEL (BIOFIRE) Specimen Type: NASOPHARYNGEAL Comment: Biofire Torch (618) Ordering Provider: ROXANNE BUCKLEY Report Released Date/Time: Jan 06, 2024 03:22 PM Reporting Lab: [facility] [phone] Performing Lab: [facility] [phone] C PNEUMONIAE PCR NOT DETECTED NOT DETECTED [...] NOT DETECTED Jan 06, 2024 03:22 PM [facility] POC CREATININE Specimen Type: BLOOD No comment entered. Ordering Provider: ALLISON PARRA Report Released Date/Time: Jan 06, 2024 03:24 PM Reporting Lab: [facility] [phone] Performing Lab: [facility] [phone] POC CREATININE 1.5 mg/dL 0.6-1.3 Jan 06, 2024 03:19 PM [facility] POC ABG/LACTATE Specimen Type: VENOUS BLOOD No comment entered. Ordering Provider: ALLISON PARRA Report Released Date/Time: Jan 06, 2024 03:24 PM Reporting Lab: [facility] [phone] Performing Lab: [facility] [address] POC PH 7.402 7.31-7.41 POC PCO2 50.1 mm[Hg] 41-51 POC PO2 24 mm[Hg] POC TCO2 33 mmol/L 24-29 POC HCO3 31.2 mmol/L 23-28 POC BE ECT 6 mmol/L -2-3 POC SO2 41 POC LACTATE <1.6 mmol/L 0.90-1.70 Jan 06, 2024 03:14 PM [facility] EXTRA BLUE TUBE Specimen Type: PLASMA No comment entered. Ordering Provider: ROXANNE BUCKLEY Report Released Date/Time: Jan 06, 2024 03:36 PM Reporting Lab: [facility] [phone] Performing Lab: [facility] [phone] EXTRA BLUE TUBE RECEIVED Jan 06, 2024 03:14 PM [facility] BNP Specimen Type: PLASMA No comment entered. Ordering Provider: ROXANNE BUCKLEY Report Released Date/Time: Jan 06, 2024 03:22 PM Reporting Lab: [facility] [phone] Performing Lab: [facility] [phone] BNP 18 pg/mL <99 Jan 06, 2024 03:14 PM [facility] TROPONIN I, HS Specimen Type: PLASMA No comment entered. Ordering Provider: ROXANNE BUCKLEY Report Released Date/Time: Jan 06, 2024 03:22 PM Reporting Lab: [facility] [phone] Performing Lab: [facility] [phone] TROPONIN I, HS <3 <35 Jan 06, 2024 03:14 PM [facility] EXTRA GOLD GEL TUBE Specimen Type: SERUM No comment entered. Ordering Provider: ROXANNE BUCKLEY Report Released Date/Time: Jan 06, 2024 03:36 PM Reporting Lab: [facility] [phone] Performing Lab: [facility] [phone] EXTRA GOLD GEL TUBE RECEIVED Jan 06, 2024 03:14 PM [facility] CBC & DIFF Specimen Type: BLOOD Comment: Automated Differential Performed Ordering Provider: ROXANNE BUCKLEY Report Released Date/Time: Jan 06, 2024 03:22 PM Reporting Lab: [facility] [phone] Performing Lab: [facility] [phone] WBC 11.27 10*3/uL H 4.0-11.0 RBC 4.81 [...] 10*3/uL 0-0.1 Jan 06, 2024 11:57 AM [facility] BASIC METABOLIC PANEL+MG Specimen Type: PLASMA No comment entered. Ordering Provider: HITESH HOLGUIN Report Released Date/Time: Oct 07, 2023 02:47 PM Reporting Lab: [facility] [phone] Performing Lab: [facility] [phone] CREATININE 1.0 mg/dL 0.7-1.2 UREA NITROGEN 16 mg/dL 8-26 GLUCOSE 112 mg/dL H 70-100 SODIUM 137 mmol/L 136-145 POTASSIUM 4.1 mmol/L 3.5-5.1 CHLORIDE 101 mmol/L 98-107 CO2 26 mmol/L 22-29 CALCIUM 9.6 mg/dL 8.4-10.2 MAGNESIUM 2.4 mg/dL 1.6-2.6 ANION GAP 10 mmol/L 5-15 .CREAT EGFR(CKD-EPI) 79 >60 Dec 30, 2023 11:00 AM [facility] .OCCULT BLOOD(FIT) Specimen Type: FECES No comment entered. Ordering Provider: SRUTHI ANDUJAR Report Released Date/Time: Dec 30, 2023 11:00 AM Reporting Lab: [facility] [address] [facility] [address] Performing Lab: [facility] [address] [facility] [address] .OCCULT BLOOD(FIT) POSITIVE HH Vital Signs: All taken on the encounter date This section contains inpatient and outpatient Vital Signs collected on the date of the Encounter. Date/Time Temperature Pulse Blood Pressure Respiratory Rate SP02 Pain Height Weight Body Mass Index Source Jan 06, 2024 02:47 PM 97.4 100 123/79 16 91 0 [facility] Jan 06, 2024 01:35 PM 93 115/75 16 92 0 [facility] Social History: Smoking Status (Most current) [...] 19, 2020 12:07 PM VA-TOBACCO FORMER USER [facility] Tobacco Use History This section includes a history of the smoking, or tobacco-related health factors, that were collected on or before the date of the Encounter. The data comes from the [place] facility where the Encounter took place. Date/Time Smoking Status/Tobacco Use Comment F acility Dec 19, 2020 12:07 PM VA-TOBACCO QUIT 5 TO < 15 YRS [facility] Aug 02, 2015 09:49 AM CURRENT TOBACCO USER [facility] Jun 06, 2014 08:51 AM CURRENT TOBACCO USER [facility] May 04, 2013 09:29 AM CURRENT TOBACCO USER [facility] Apr 24, 2012 07:40 AM CURRENT TOBACCO USER [facility] Advance Directives: All historical and [...] 02, 2023 STATE-AUTHORIZED PORTABLE ORDERS NATALYA CarlosPHOENIX Campo [facility] Radiology Reports: +/- 30 days of [...] 2024 08:00 PM MRI-BRAIN (P): GILDA CARRILLO [id number] -1950 M Ex Date: JAN 08, 2024@20:00 Req Phys: ROSEANN GAMA Loc: [facility] EYE RESIDENT FOL/UP (Req'g Img Loc: MRI IMAGING Service: [place] [address] (Case [id number] COMPLETE) MRI BRAINBRAINSTEM W & W/O CONTRA(MRI Detailed) CPT:33205 Contrast Media : Gadolinium Reason for Study: gradual right eye vision loss over with right optic nerve atroph (Case [id number] COMPLETE) MRI NECK/FACE/ORBIT W/CONTRAST (MRI Detailed) CPT:66407 Contrast Media : Gadolinium Clinical History: Per Joint Commission Standards, by signing this diagnostic imaging request the ordering provider confirms they have considered patients age and recent imaging history. Did the ordering provider speak with a career consultant regarding this imaging exam? 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 nerve pathway Responsible provider name and phone number to notify for critical findings if other than user placing the order and pager listed below: User placing orders pager: [phone] LAST CREATININE 1.2 (10/07/23) Allergies: Patient has answered NKA Report Status: Verified Date Reported: JAN 09, 2024 Date Verified: JAN 09, 2024 Central Supply Technician E-Sig:/ES/OSBALDO RODGERS MD Report: MRI BRAINBRAINSTEM [...] Primary Interpreting Staff: OSBALDO RODGERS MD, RADIOLOGIST (Central Supply Technician) /[facility] OSBALDO RODGERS [facility] Jan 06, 2024 03:24 PM CHEST 1 VIEW: GILDA CARRILLO RAY [id number] -1950 M Exm Date: JAN 06, 2024@15:24 Req Phys: ANNI BUCKLEY Pat Loc: [facility] EMERGENCY DEPT WALK-IN (Re Img Loc: MAIN X-RAY Service: [place] [address] (Case [id number] COMPLETE) CHEST 1 VIEW (RAD Detailed) CPT:64727 Proc Modifiers : PORTABLE EXAM Reason for [...] 06, 2024 Date Verified: JAN 06, 2024 Central Supply Technician E-Sig:/ES/BHARAT PARKER MD Report: EXAMINATION: CHEST [...] Primary Interpreting Staff: BHARAT PARKER MD, RADIOLOGIST (Central Supply Technician) /BHARAT TSAI [facility] Encounter Notes: All associated encounter notes This section contains the clinical notes associated to the Encounter. Date/Time Encounter Note(s) Provider Source Jan 06, 2024 02:13 PM CARDIOLOGY DIAGNOSTIC STUDY NOTE: LOCAL TITLE: CARDIOLOGY ELECTROPHYSIOLOGY NOTE STANDARD TITLE: CARDIOLOGY DIAGNOSTIC STUDY NOTE DATE OF NOTE: JAN 06, 2024@14:13 ENTRY DATE: JAN 06, 2024@14:16:23 AUTHOR: HITESH HOLGUIN COSIGNER: URGENCY: STATUS: COMPLETED cc: afib, Dofetilide f/u HPI: Patient is [...] QTc remained stable. He presents to [facility] today for f/u. He states that he has been using his rescue inhaler a lot lately and had a lot of phlegm in his lungs. He thinks it's allergies. He's always out of breath. He feels like his breathing is worse over the last few weeks. He's been coughing up more over the last few weeks, it is foamy and clear. He hasn't had any fevers or chills. He is wheezing audibly in the clinic. His weight is currently in the 350s, he varies by 3-4 lbs, he takes furosemide twice/day and it works well. He continues to feel like he doesn't have any endurance. [place], he uses a walker at home. He otherwise denies palpitations, heart fluttering, racing, chest pain, pressure, heaviness, PND, orthopnea, lightheadedness, dizziness. He's lost 60 lbs since starting semaglutide. 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 ROS: 12 point review of systems negative for acute issues except as noted in HPI. PMHx: Persistent atrial fibrillation - on apixaban - dx 10/28/22, had RVR in the context of sepsis 2/2 cellulitis, HFpEF exacerbation and a COVID-19 infection - admitted for Dofetilide loading (07/07/23), on 250 mcg BID d/t QTc prolongation HFpEF - EF 55-60% (TTE 09/2022) w/ [...] children, healthy PRIOR CARDIAC TESTING - 1-week [email or web address] Event monitor (01/22-01/28/2023) 4 days and 2 [...] Interpretation Summary A complete two-dimensional transthoracic echocardiogram (22664) was performed with contrast (Q9957). Study quality is technically difficult. The left ventricular systolic function is normal. The visually estimated ejection fraction is 60-65%. Grade I diastolic dysfunction, (abnormal relaxation pattern). The right ventricle is not well visualized. The inferior vena cava was not visualized during the exam. There is trivial tricuspid regurgitation. Estimated RVSP 34mmHg + right atrial pressure - EKGs (01/06/24): NSR @ 97 bpm QRS: 78 msec, QT/QTc: 340/432 msec (10/07/23): Sinus tachycardia @ 106 bpm QRS: [...] TO TREAT AND/OR PREVENT BLOOD CLOTS 6) BISACODYL 5MG EC TAB TAKE TWO TABLETS BY MOUTH ONCE ACTIVE FOR COLON PREP 7) CARBOXYMETHYLCELLULOSE NA 0.5% OPH SOLN INSTILL 1 ACTIVE DROP IN BOTH EYES FOUR TIMES A DAY FOR DRY EYES 8) COLON ELECTROLYTE LAVAGE PWD FOR SOLN TAKE ONE ACTIVE CONTAINER BY MOUTH DIRECTED FOR COLON PREP 9) DICLOFENAC NA 1% TOP GEL APPLY 2 GRAMS TOPICALLY TWO ACTIVE TIMES A DAY NEEDED FOR PAIN -USE DOSE CARD IN BOX TO MEASURE DOSE -MAXIMUM OF 32 GM PER DAY 10) DOFETILIDE 250MCG CAP TAKE ONE CAPSULE BY MOUTH TWICE ACTIVE A DAY FOR ATRIAL FIBRILLATION 11) EMPAGLIFLOZIN 25MG TAB TAKE ONE-HALF TABLET BY MOUTH ACTIVE EVERY MORNING FOR HEART FAILURE 12) FLUTICASONE PROP 50MCG 120D NASAL INHL SPRAY 2 SPRAYS ACTIVE IN EACH NOSTRIL EVERY DAY FOR NASAL DRIP 13) FUROSEMIDE 40MG TAB TAKE TWO TABLETS BY MOUTH EVERY ACTIVE (S) MORNING FOR EXCESS FLUID FOR WEIGHT GAIN OR WORSENING HEART FAILURE SYMPTOMS 14) GABAPENTIN 400MG CAP TAKE ONE CAPSULE BY MOUTH FOUR ACTIVE TIMES A DAY FOR PAIN AND NUMBNESS 15) GUAIFENESIN 200MG TAB TAKE TWO TABLETS BY MOUTH THREE ACTIVE TIMES A DAY FOR COPD/COUGH/MUCUS 16) LIDOCAINE 5% PATCH APPLY 3 PATCHES TOPICALLY EVERY ACTIVE DAY FOR PAIN. WEAR FOR ONLY 12 HOURS THEN REMOVE FOR 12 HOURS. ONE PATCH FOR EACH HIP AND ONE PATCH FOR LOW BACK 17) LORAZEPAM 1MG TAB TAKE ONE TABLET BY MOUTH ACTIVE DIRECTED ONE HOUR PRIOR TO VISIT AND ONE TABLET DURING THE VISIT FOR MRI. FOR CLAUSTROPHOBIA 18) LOSARTAN 50MG TAB TAKE ONE TABLET BY MOUTH EVERY ACTIVE MORNING FOR HEART FAILURE 19) LUBRICATING (PF) OPH OINT APPLY A SMALL AMOUNT TO ACTIVE BOTH EYES AT BEDTIME FOR DRY EYES 20) NYSTATIN 840668 UNT/GM CREAM APPLY THIN LAYER ACTIVE TOPICALLY [...] OR VASHE SOAKS. WRAP WITH KERLIX. 28) UREA 40% CREAM APPLY THIN LAYER TOPICALLY EVERY DAY ACTIVE DIRECTED FOR THICK SKIN 29) VANICREAM TOP CREAM APPLY THIN LAYER TOPICALLY EVERY ACTIVE DAY IDEALLY WITHIN 3 MINUTES AFTER BATH OR SHOWER. TO ALL AREAS OF SKIN FOR MOISTURIZER FOR DRY SKIN 30) ZINC OXIDE 20% OINT APPLY SMALL AMOUNT TOPICALLY ACTIVE THREE TIMES A WEEK NEEDED FOR WOUND PREVENTION Non-VA Medications Status 1) Non-VA KETOCONAZOLE SHAMPOO 2%SHAMPOO TOPICALLY ACTIVE 31 Total Medications Vital Signs: Temperature: 97.8 F [36.6 C] (11/05/2023 13:28) Blood Pressure: 115/75 (01/06/2024 13:35) Pulse: 93 (01/06/2024 13:35) Respiration: 16 (01/06/2024 13:35) Pain: 0 (01/06/2024 13:35) Pulse Oximetry: 92% (01/06/2024 13:35) Weight: 360 lb [163.29 kg] (11/05/2023 13:28) - Labs (01/06/24): Test Name Result Units Range --------- ------ ----- ----- SODIUM 137 mmol/L 136 - 145 POTASSIUM 4.1 mmol/L 3.5 - 5.1 CHLORIDE 101 mmol/L 98 - 107 CO2 26 mmol/L 22 - 29 ANION GAP 10 mmol/L 5 - 15 GLUCOSE 112 H mg/dL 70 - 100 UREA NITROGEN 16 mg/dL 8 - 26 CREATININE 1.0 mg/dL 0.7 - 1.2 CALCIUM 9.6 mg/dL 8.4 - 10.2 MAGNESIUM 2.4 mg/dL 1.6 - 2.6 .CREAT EGFR(CKD-EPI) 79 Ref: >=60 Comments: PE: GA: very pleasant, well-appearing, male in NAD; Lungs: inspiratory and expiratory wheezes, no crackles, or rhonchi CV: RRR; no murmurs, rubs, [...] was no [place] measurements available. - he reported feeling short of breath w/minimal activity but has severe COPD, morbid obesity and HFpEF which could all be contributing to his shortness of breath. - EKGs showed poorly controlled ventricular rates in afib on metoprolol succinate - pt referred from HF for rhythm control. He wanted an attempt at rhythm control, he preferred to try DCCV w/o AADs first, since afib was only dx in October (again, may have been present for longer) thought it was reasonable to try but advised pt that it may not be successful. DCCV on 01/22/23 was unsuccessful. - he was admitted for Dofetilide loading from 07/07-07/10/2023. He had QTc prolongation after the second dose so his Dofetilide was decreased to 250 mcg BID. He had a successful DCCV after the 4th dose. - EKG today is NSR @ 97 bpm, he doesn't think he's had any episodes of afib. *Dofetilide monitoring - pt is taking Dofetilide 250 mcg BID - EKG today is NSR @ 97 bpm QRS: 78 msec, QT/QTc: 340/432 msec - creat is 1.0, K/mag WNL - he reports compliance and is not on any contraindicated Rx * CVA prophylaxis - pt is taking apixaban 5 mg BID for CVA prophylaxis - CHADS-VASc score is 4 d/t HF, HTN, age, DM. - He denies bleeding issues * HFpEF - diagnosed in 10/2022, pt thinks he's had it for longer. TTE (10/2022) EF 55- 60%, unable to assess diastolic dysfunction. - he is following w/HF clinic and has chronic LE edema - he is taking empagliflozin 12.5 mg qday, furosemide 80 mg qday, losartan 50 mg qday, and spironolactone 25 mg qday. - weight is fairly stable for him, does not appear overly volume overloaded today. Will add on BNP to be sure * insp/exp wheezing - pt w/both inspiratory and expiratory wheezing very audible just sitting next to him. He has been increasingly short of breath for the last few weeks and has had a productive cough (always present but worse over the last few weeks). He thinks it may be 2/2 allergies - oxygen sats are 92%, pt VSS otherwise - advised pt to go to ED for a neb, poss CXR. - does not appear volume overloaded but added on BNP to be sure there wasn't a HF component * f/u - sent pt to ED for nebs, CXR d/t audible insp/exp wheezing - in 3 months in [facility] with labs and EKG for Dofetilide monitoring I spent a total of 40+ minutes between preparation, review of testing, discussion with patient and documentation of encounter /mateo/ HITESH HOLGUIN, CASTING MACHINE OPERATOR AUTOMATIC, BAT LATHE OPERATOR Electrophysiology Nurse Practitioner Signed: 01/06/2024 18:41 HITESH HOLGUIN [facility] Jan 06, 2024 01:36 PM INTERNAL MEDICINE OUTPATIENT NOTE: LOCAL TITLE: MEDICINE CLINIC NURSING NOTE STANDARD TITLE: INTERNAL MEDICINE OUTPATIENT NOTE DATE OF NOTE: JAN 06, 2024@13:36 ENTRY DATE: JAN 06, 2024@13:36:26 AUTHOR: CHELSI ABRAMS EXP COSIGNER: URGENCY: STATUS: COMPLETED TYPE OF VISIT: Appointment Check In Type of appointment: In-person appointment REASON FOR VISIT: scheduled visit ALLERGIES: Patient has answered NKA VITAL SIGNS: Blood Pressure: 115/75 (01/06/2024 13:35) Pulse: 93 (01/06/2024 13:35) Respiration: 16 (01/06/2024 13:35) Temperature: 97.8 F [36.6 C] (11/05/2023 13:28) Weight: 360 lb [163.29 kg] (11/05/2023 13:28) Height: 76 in [193.0 cm] (07/02/2023 13:54) BMI: 43.9 O2 Sat: 92% (01/06/2024 13:35) Pain: 0 (01/06/2024 13:35) PAIN SCREEN: Patient is not having significant pain that they wish to discuss with their provider today. MEDICATION Over the Counter/Herbal Medications: The patient denies taking any outside medications or herbals. /mateo/ CHELSI ABRAMS LPN LPN Signed: 01/06/2024 13:37 CHELSI ABRAMS [facility]
--- OUTSIDE RECORDS SUMMARY | 2024-03-25 10:37 | XMS_ITS | Encounter Summary ---
Author Name [facility] [place] [place] Organization [facility] Address [address] [place] [address] Care Team Providers Care Tub Chucker Name Role Phone GELACIO MICHEL Primary Care [...] PART A Jul 21, 2014 PART A [phone] Miguelito CARRILLO PATIENT Selected Encounter This section includes the information on [place] at [place] for [place]counter. Date/Time Encounter Type Encounter Description Reason Pro vider Source Dec 30, 2023 11:05 AM Outpatient Encounter GI ENDOSCOPY IHE Encounter Template Text not used by [place] [...] Appointment Type Appointme nt Facility Name Jan 06, 2024 12:30 PM [place] [facility] Jan 06, 2024 01:00 PM [place] [facility] Jan 06, 2024 02:00 [facility] Jan 06, 2024 02:45 [facility] Jan 08, 2024 07:45 PM [place] [place] [facility] Jan 12, 2024 01:15 PM [facility] [place] Jan 13, 2024 03:00 PM [facility]ORY - NONE [facility] Jan 21, 2024 11:30 AM [facility] Feb 04, 2024 01:30 PM [facility] Feb 04, 2024 02:30 [facility] Feb 11, 2024 02:30 [facility] Feb 12, 2024 12:30 PM [place] [facility] Feb 12, 2024 01:30 PM [place] [facility] Feb 12, 2024 03:00 PM AM[facility] - SUR[facility] Feb 19, 2024 02:15 PM [facility] Feb 26, 2024 10:00 AM AMBULATORY - NONE [facility] Mar 29, 2024 01:00 PM AMBULATORY - SURGERY [facility] Mar 29, 2024 02:00 PM AMBULATORY - SURGERY [facility] Mar 30, 2024 08:30 AM [facility] Apr 01, 2024 10:00 AM AMBULATORY - NONE [facility] Active, Pending, and Scheduled Orders This section includes a listing of several types of active, pending, and scheduled orders, including clinic medications orders, diagnostic test orders, procedure orders and consult orders; where the start date of the order is 45 days before the date of the Encounter or 45 days after the date of theEncounter. The data comes from all [facility]. Test Date/Time Test Type Test Details Facility Name Jan 06, 2024 12:00 AM Laboratory - Chemi stry Order BNP PLASMA SP ONCE [facility] Lab Results: +/- 30 days of the [...] Range Comment Jan 06, 2024 03:40 PM [facility] COVID-19 DIAGNOSTIC PANEL (BIOFIRE) Specimen Type: NASOPHARYNGEAL Comment: Biofire Torch (698) Ordering Provider: ROXANNE BUCKLEY Report Released Date/Time: Jan 06, 2024 03:22 PM Reporting Lab: [facility] [phone] Performing Lab: [facility] [phone] C PNEUMONIAE PCR NOT DETECTED NOT DETECTED [...] NOT DETECTED Jan 06, 2024 03:22 PM [facility] POC CREATININE Specimen Type: BLOOD No comment entered. Ordering Provider: ALLISON PARRA Report Released Date/Time: Jan 06, 2024 03:24 PM Reporting Lab: [facility] [phone] Performing Lab: [facility] [address] POC CREATININE 1.5 mg/dL 0.6-1.3 Jan 06, 2024 03:19 PM [facility] POC ABG/LACTATE Specimen Type: VENOUS BLOOD No comment entered. Ordering Provider: ALLISON PARRA Report Released Date/Time: Jan 06, 2024 03:24 PM Reporting Lab: [facility] [address] Performing Lab: [facility] [address] POC PH 7.402 7.31-7.41 POC PCO2 50.1 mm[Hg] 41-51 POC PO2 24 mm[Hg] POC TCO2 33 mmol/L 24-29 POC HCO3 31.2 mmol/L 23-28 POC BE ECT 6 mmol/L -2-3 POC SO2 41 POC LACTATE <1.6 mmol/L 0.90-1.70 Jan 06, 2024 03:14 PM [facility] EXTRA BLUE TUBE Specimen Type: PLASMA No comment entered. Ordering Provider: ROXANNE BUCKLEY Report Released Date/Time: Jan 06, 2024 03:36 PM Reporting Lab: [facility] [address] Performing Lab: [facility] [address] EXTRA BLUE TUBE RECEIVED Jan 06, 2024 03:14 PM [facility] BNP Specimen Type: PLASMA No comment entered. Ordering Provider: ROXANNE BUCKLEY Report Released Date/Time: Jan 06, 2024 03:22 PM Reporting Lab: [facility] [address] Performing Lab: [facility] [address] BNP 18 pg/mL <99 Jan 06, 2024 03:14 PM [facility] TROPONIN I, HS Specimen Type: PLASMA No comment entered. Ordering Provider: ROXANNE BUCKLEY Report Released Date/Time: Jan 06, 2024 03:22 PM Reporting Lab: [facility] [phone] Performing Lab: [facility] [phone] TROPONIN I, HS <3 <35 Jan 06, 2024 03:14 PM [facility] EXTRA GOLD GEL TUBE Specimen Type: SERUM No comment entered. Ordering Provider: ROXANNE BUCKLEY Report Released Date/Time: Jan 06, 2024 03:36 PM Reporting Lab: [facility] [address] Performing Lab: [facility] [phone] EXTRA GOLD GEL TUBE RECEIVED Jan 06, 2024 03:14 PM [facility] CBC & DIFF Specimen Type: BLOOD Comment: Automated Differential Performed Ordering Provider: ROXANNE BUCKLEY Report Released Date/Time: Jan 06, 2024 03:22 PM Reporting Lab: [facility] [phone] Performing Lab: [facility] [address] WBC 11.27 10*3/uL H 4.0-11.0 RBC 4.81 [...] 10*3/uL 0-0.1 Jan 06, 2024 11:57 AM [facility] BASIC METABOLIC PANEL+MG Specimen Type: PLASMA No comment entered. Ordering Provider: HITESH HOLGUIN Report Released Date/Time: Oct 07, 2023 02:47 PM Reporting Lab: [facility] [address] Performing Lab: [facility] [address] CREATININE 1.0 mg/dL 0.7-1.2 UREA NITROGEN 16 mg/dL 8-26 GLUCOSE 112 mg/dL H 70-100 SODIUM 137 mmol/L 136-145 POTASSIUM 4.1 mmol/L 3.5-5.1 CHLORIDE 101 mmol/L 98-107 CO2 26 mmol/L 22-29 CALCIUM 9.6 mg/dL 8.4-10.2 MAGNESIUM 2.4 mg/dL 1.6-2.6 ANION GAP 10 mmol/L 5-15 .CREAT EGFR(CKD-EPI) 79 >60 Dec 30, 2023 11:00 AM [facility] .OCCULT BLOOD(FIT) Specimen Type: FECES No comment entered. Ordering Provider: SRUTHI ANDUJAR Report Released Date/Time: Dec 30, 2023 11:00 AM Reporting Lab: [facility] [address] [facility] [phone] Performing Lab: [facility] [address] [facility] [address] .OCCULT BLOOD(FIT) POSITIVE Social History: Smoking Status [...] 19, 2020 12:07 PM [place]-TOBACCO FORMER USER [facility] Tobacco Use History This section includes a history of the smoking, or tobacco-related health factors, that were collected on or before the date of the Encounter. The data comes from the [place] facility where the Encounter took place. Date/Time Smoking Status/Tobacco Use Comment F acility Dec 19, 2020 12:07 PM [place] 5 TO < 15 YRS [facility] Aug 02, 2015 09:49 AM CURRENT TOBACCO USER [facility] Jun 06, 2014 08:51 AM CURRENT TOBACCO USER [facility] May 04, 2013 09:29 AM CURRENT TOBACCO USER [facility] Apr 24, 2012 07:40 AM CURRENT TOBACCO USER [facility] Advance Directives: All historical and current Section [...] from all [facility]. Date Advance Directives Provider Source Jan [...] comes from all [place] treatment facilities. 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 Did the ordering provider speak with a advertising consultant regarding this imaging exam? 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 Responsible provider name and phone number to notify for critical findings if other than user placing the order and pager listed below: User placing orders pager: [phone] LAST CREATININE 1.2 (10/07/23) Allergies: Patient has answered NKA Report Status: Verified Date Reported: JAN 09, 2024 Date Verified: JAN 09, 2024 Veneer Drier Feeder E-Sig:/ES/OSBALDO RODGERS MD Report: MRI BRAINBRAINSTEM W [...] Primary Interpreting Staff: OSBALDO RODGERS MD, RADIOLOGIST (Veneer Drier Feeder) /[facility] OSBALDO RODGERS [facility] Jan 06, 2024 03:24 PM CHEST 1 VIEW: CARRILLOGILDA RAY [id number] -1950 M Exm Date: JAN 06, 2024@15:24 Req Phys: ANNI BUCKLEY Alber Pat Loc: [facility] EMERGENCY DEPT WALK-IN (Re Img Loc: MAIN X-RAY Service: [place] [address] (Case [id number] COMPLETE) CHEST 1 VIEW (RAD Detailed) CPT:17969 Proc Modifiers : PORTABLE EXAM Reason for Study: Shortness of breath, cough Clinical History: [place] IS under investigation (PUI) for COVID-19 or [...] 06, 2024 Date Verified: JAN 06, 2024 Veneer Drier Feeder E-Sig:/ES/BHARAT PARKER MD Report: EXAMINATION: CHEST 1 [...] Primary Interpreting Staff: BHARAT PARKER MD, RADIOLOGIST (Veneer Drier Feeder) /BHARAT TSAI [facility] Encounter Notes: All associated encounter notes This section contains the clinical notes associated to the Encounter. Date/Time Encounter Note(s) Provider Source Dec 30, 2023 11:09 AM ADDENDUM: LOCAL TITLE: Addendum STANDARD TITLE: ADDENDUM DATE OF NOTE: DEC 30, 2023@11:09:25 ENTRY DATE: DEC 30, 2023@11:09:25 AUTHOR: APOLINAR BURCIAGA COSIGNER: URGENCY: STATUS: COMPLETED Patient is on abixiban, and needs a medical doctor to do the order for a colonoscopy. Could Dr. Andujar or Allan please place the order for a colonoscopy? /nacho BURCIAGA BA RN REGISTERED NURSE Signed: 12/30/2023 11:11 Receipt Acknowledged By: 12/30/2023 11:41 /nacho ANDUJAR M.D. Staff Physician 12/30/2023 12:34 /mateo/ BRI HEALY MD GASTROENTEROLOGY STAFF PHYSICIAN --- Original Document --- 12/30/23 RESEARCH PROGRESS NOTE: Mr. Carrillo's fit kit came back positive for blood in the stool. I called and tokd him the results and he is in agreement to do the colonoscopy. I have placed the order and he is awaiting a call from the exhibit preparator. /nacho BURCIAGA BA, RN REGISTERED NURSE Signed: 12/30/2023 11:06 Receipt Acknowledged By: 12/30/2023 11:40 /nacho ANDUJAR M.D. Staff Physician * AWAITING SIGNATURE * GELACIO MICHEL RUTH E [facility] Dec 30, 2023 11:05 AM RESEARCH NOTE: LOCAL TITLE: RESEARCH PROGRESS NOTE STANDARD TITLE: RESEARCH NOTE DATE OF NOTE: DEC 30, 2023@11:05 ENTRY DATE: DEC 30, 2023@11:05:07 AUTHOR: APOLINAR BURCIAGA EXP COSIGNER: URGENCY: STATUS: COMPLETED RESEARCH PROGRESS NOTE Has ADDENDA Mr. Carrillo'demar fit kit came back positive for blood in the stool. I called and tokd him the results and he is in agreement to do the colonoscopy. I have placed the order and he is awaiting a call from the exhibit preparator. /nacho BURCIAGA BA RN REGISTERED NURSE Signed: 12/30/2023 11:06 Receipt Acknowledged By: 12/30/2023 11:40 /nacho ANDUJAR M.D. Staff Physician 12/30/2023 14:57 /es/ GELACIO MICHEL OZZIE,MANDY Lopez 12/30/2023 ADDENDUM STATUS: COMPLETED Patient is on abixiban, and needs a medical doctor to do the order for a colonoscopy. Could Dr. Andujar or Allan please place the order for a colonoscopy? /es/ APOLINAR BURCIAGA BA, RN REGISTERED NURSE Signed: 12/30/2023 11:11 Receipt Acknowledged By: 12/30/2023 11:41 /es/ SRUTHI ANDUJAR M.D. Staff Physician 12/30/2023 12:34 /es/ BRI HEALY MD GASTROENTEROLOGY STAFF PHYSICIAN APOLINAR BURCIAGA [facility]
--- OUTSIDE RECORDS SUMMARY | 2024-03-25 10:37 | XMS_ITS | Encounter Summary ---
Author Name [facility] Organization [facility] Address [address] [place] [address] Care Team Providers Care Sleep Lab Technologist Name Role Phone GELACIO MICHEL Primary Care [...] PART A Jul 21, 2014 PART A [id number] [phone] Miguelito CARRILLO PATIENT Selected Encounter This section includes the information on record at ME for the Encounter. 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 This section includes future appointments and future orders which are active, pending or scheduled. Future Appointments This section includes appointments that were scheduled to occur 6 months from the date of the Encounter, up to a maximum of 20 appointments. [facility]. Appointment Date/Time Appointment Type Appointme nt Facility Name Jan 06, 2024 12:30 PM [facility]UL[facility] [place] [facility] [facility] Jan 06, 2024 01:00 PM [facility] Jan 06, 2024 02:00 PM [facility] Jan 06, 2024 02:45 PM [facility] Jan 08, 2024 07:45 PM [facility] Jan 12, 2024 01:15 PM [facility] Jan 13, 2024 03:00 PM AMB[facility]ATORY - NONE [facility] Jan 21, 2024 11:30 AM [facility]IC[facility] Feb 04, 2024 01:30 PM [facility] Feb 04, 2024 02:30 PM [facility] Feb 11, 2024 02:30 PM [facility] Feb 12, 2024 12:30 PM [facility] [place] [facility] [facility] Feb 12, 2024 01:30 PM [facility] Feb 12, 2024 03:00 PM [facility] Feb 19, 2024 02:15 PM [facility] Feb 26, 2024 10:00 AM AMBULATORY - NONE [facility] Mar 29, 2024 01:00 PM AMBULATORY - SURGERY [facility] Mar 29, 2024 02:00 PM AMBULATORY - SURGERY [facility] Mar 30, 2024 08:30 AM AMBULATORY - REHAB [facility] Apr 01, 2024 10:00 AM AMBULATORY - NONE [facility] Active, Pending, and Scheduled Orders This section includes a listing of several types of active, pending, and scheduled orders, including clinic medications orders, diagnostic test orders, procedure orders and consult orders; where the start date of the order is 45 days before the date of the Encounter or 45 days after the date of theEncounter. The data comes from all [place] treatment facilities. Test Date/Time Test Type Test Details Facility Name Jan 06, 2024 12:00 AM Laboratory - Chemi stry Order BNP PLASMA SP ONCE [facility] Lab Results: +/- 30 days of the encounter This section includes the Chemistry and Hematology Lab Results on record with ME for the patient. Radiology Reports and Pathology Reports are provided separately, in subsequent sections. Lab Results This section contains the Chemistry/Hematology Results that were resulted 30 days before or 30 daysafter the date of the Encounter. Date/Time Source Result Type Result - Unit Interpretation Reference Range Comment Feb 04, 2024 01:40 PM [facility] BNP Specimen Type: PLASMA No comment entered. Ordering Provider: JACOB VIRGEN Report Released Date/Time: Aug 13, 2023 11:38 AM Reporting Lab: [facility] [id number] Performing Lab: [facility] [id number] BNP 23 pg/mL <99 Feb 04, 2024 01:40 PM [facility] BASIC METABOLIC PANEL+MG Specimen Type: PLASMA No comment entered. Ordering Provider: JACOB VIRGEN Report Released Date/Time: Aug 13, 2023 11:38 AM Reporting Lab: [facility] [id number] Performing Lab: [facility] [address] CREATININE 1.2 mg/dL 0.7-1.2 UREA NITROGEN 18 mg/dL 8-26 GLUCOSE 102 mg/dL H 70-100 SODIUM 140 mmol/L 136-145 POTASSIUM 4.1 mmol/L 3.5-5.1 CHLORIDE 102 mmol/L 98-107 CO2 27 mmol/L 22-29 CALCIUM 10.0 mg/dL 8.4-10.2 MAGNESIUM 2.3 mg/dL 1.6-2.6 ANION GAP 11 mmol/L 5-15 .CREAT EGFR(CKD-EPI) 63 >60 Jan 06, 2024 03:40 PM [facility] COVID-19 DIAGNOSTIC PANEL (BIOFIRE) Specimen Type: NASOPHARYNGEAL Comment: Biofire Torch (618) Ordering Provider: ROXANNE BUCKLEY Report Released Date/Time: Jan 06, 2024 03:22 PM Reporting Lab: [facility] [address] Performing Lab: [facility] [address] C PNEUMONIAE PCR NOT DETECTED NOT DETECTED [...] NOT DETECTED Jan 06, 2024 03:22 PM [facility] POC CREATININE Specimen Type: BLOOD No comment entered. Ordering Provider: ALLISON PARRA Report Released Date/Time: Jan 06, 2024 03:24 PM Reporting Lab: [facility] [address] Performing Lab: [facility] [address] POC CREATININE 1.5 mg/dL 0.6-1.3 Jan 06, 2024 03:19 PM [facility] POC ABG/LACTATE Specimen Type: VENOUS BLOOD No comment entered. Ordering Provider: ALLISON PARRA Report Released Date/Time: Jan 06, 2024 03:24 PM Reporting Lab: [facility] [address] Performing Lab: [facility] [address] POC PH 7.402 7.31-7.41 POC PCO2 50.1 mm[Hg] 41-51 POC PO2 24 mm[Hg] POC TCO2 33 mmol/L 24-29 POC HCO3 31.2 mmol/L 23-28 POC BE ECT 6 mmol/L -2-3 POC SO2 41 POC LACTATE <1.6 mmol/L 0.90-1.70 Jan 06, 2024 03:14 PM [facility] EXTRA BLUE TUBE Specimen Type: PLASMA No comment entered. Ordering Provider: ROXANNE BUCKLEY Report Released Date/Time: Jan 06, 2024 03:36 PM Reporting Lab: [facility] [address] Performing Lab: [facility] [address] EXTRA BLUE TUBE RECEIVED Jan 06, 2024 03:14 PM [facility] BNP Specimen Type: PLASMA No comment entered. Ordering Provider: ROXANNE BUCKLEY Report Released Date/Time: Jan 06, 2024 03:22 PM Reporting Lab: [facility] [address] Performing Lab: [facility] [address] BNP 18 pg/mL <99 Jan 06, 2024 03:14 PM [facility] TROPONIN I, HS Specimen Type: PLASMA No comment entered. Ordering Provider: ROXANNE BUCKLEY Report Released Date/Time: Jan 06, 2024 03:22 PM Reporting Lab: [facility] [address] Performing Lab: [facility] [address] TROPONIN I, HS <3 <35 Jan 06, 2024 03:14 PM [facility] EXTRA GOLD GEL TUBE Specimen Type: SERUM No comment entered. Ordering Provider: ROXANNE BUCKLEY Report Released Date/Time: Jan 06, 2024 03:36 PM Reporting Lab: [facility] [phone] Performing Lab: [facility] [address] EXTRA GOLD GEL TUBE RECEIVED Jan 06, 2024 03:14 PM [facility] CBC & DIFF Specimen Type: BLOOD Comment: Automated Differential Performed Ordering Provider: ROXANNE BUCKLEY Report Released Date/Time: Jan 06, 2024 03:22 PM Reporting Lab: [facility] [address] Performing Lab: [facility] [address] WBC 11.27 10*3/uL H 4.0-11.0 RBC 4.81 [...] 10*3/uL 0-0.1 Jan 06, 2024 11:57 AM [facility] BASIC METABOLIC PANEL+MG Specimen Type: PLASMA No comment entered. Ordering Provider: HITESH HOLGUIN Report Released Date/Time: Oct 07, 2023 02:47 PM Reporting Lab: [facility] [address] Performing Lab: [facility] [address] CREATININE 1.0 mg/dL 0.7-1.2 UREA NITROGEN 16 mg/dL 8-26 GLUCOSE 112 mg/dL H 70-100 SODIUM 137 mmol/L 136-145 POTASSIUM 4.1 mmol/L 3.5-5.1 CHLORIDE 101 mmol/L 98-107 CO2 26 mmol/L 22-29 CALCIUM 9.6 mg/dL 8.4-10.2 MAGNESIUM 2.4 mg/dL 1.6-2.6 ANION GAP 10 mmol/L 5-15 .CREAT EGFR(CKD-EPI) 79 >60 Dec 30, 2023 11:00 AM [facility] .OCCULT BLOOD(FIT) Specimen Type: FECES No comment entered. Ordering Provider: SRUTHI ANDUJAR Report Released Date/Time: Dec 30, 2023 11:00 AM Reporting Lab: [facility] [address] [facility] [address] Performing Lab: [facility] [address] [facility] [address] .OCCULT BLOOD(FIT) POSITIVE HH Social History: Smoking Status (Most current) and Tobacco Use (All prior to encounter date) This section includes the most current, and the historical, smoking and tobacco- related health factors from the [place] facility where the Encounter took place. Current Smoking Status This section includes the most current smoking, or tobacco-related health factor, from the ME facility where the Encounter took place. Date/Time Current Smoking Status Comment Facil ity Dec 19, 2020 12:07 PM VA-TOBACCO FORMER USER [facility] Tobacco Use History This section includes a history of the smoking, or tobacco-related health factors, that were collected on or before the date of the Encounter. The data comes from the [place] facility where the Encounter took place. Date/Time Smoking Status/Tobacco Use Comment F acility Dec 19, 2020 12:07 PM VA-TOBACCO QUIT 5 TO < 15 YRS [facility] Aug 02, 2015 09:49 AM CURRENT TOBACCO USER [facility] Jun 06, 2014 08:51 AM CURRENT TOBACCO USER [facility] May 04, 2013 09:29 AM CURRENT TOBACCO USER [facility] Apr 24, 2012 07:40 AM CURRENT TOBACCO USER [facility] Advance Directives: All historical and current Section Date Range: From patient's date of to the date document was created. This section includes ALL of a patient's completed or amended [place] Advance and Rescinded Directives. The entries below indicate that a directive exists for the patient, but an actual copy is not included with this document. The data comes from all [facility]. Date Advance Directives Provider Source Jan 02, 2023 STATE-AUTHORIZED PORTABLE ORDERS [facility] Radiology Reports: +/- [...] the Encounter. The data comes from all [place] treatment facilities. 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 Did the ordering provider speak with a nursing education consultant regarding this imaging exam? 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 Responsible provider name and phone number to notify for critical findings if other than user placing the order and pager listed below: User placing orders pager: [phone] LAST CREATININE 1.2 (10/07/23) Allergies: Patient has answered NKA Report Status: Verified Date Reported: JAN 09, 2024 Date Verified: JAN 09, 2024 Staff Interpreter E-Sig:/ES/OSBALDO RODGERS MD Report: MRI BRAINBRAINSTEM W [...] Primary Interpreting Staff: OSBALDO RODGERS MD, RADIOLOGIST (Staff Interpreter) /CDC OSBALDO RODGERS [facility] Jan 06, 2024 03:24 PM CHEST 1 VIEW: GILDA CARRILLO RAY [id number] -1950 M Ex Date: JAN 06, 2024@15:24 Req Phys: ANNI BUCKLEY Loc: [facility] EMERGENCY DEPT WALK-IN (Re Img Loc: MAIN X-RAY Service: [place] [address] (Case [id number] COMPLETE) CHEST 1 VIEW (RAD Detailed) CPT:53200 Proc Modifiers : PORTABLE EXAM Reason for [...] 06, 2024 Date Verified: JAN 06, 2024 Staff Interpreter E-Sig:/ES/BHARAT PARKER MD Report: EXAMINATION: CHEST 1 [...] Primary Interpreting Staff: BHARAT PARKER MD, RADIOLOGIST (Staff Interpreter) /RTS BHARAT PARKER [facility] Encounter Notes: All associated encounter notes This section contains the clinical notes associated to the Encounter. Date/Time Encounter Note(s) Provider Source Jan 05, 2024 03:31 PM MEDICATION MGT CON SULT: LOCAL TITLE: ANTICOAGULATION CLINIC CONSULT STANDARD TITLE: MEDICATION MGT CONSULT DATE OF NOTE: JAN 05, 2024@15:31 ENTRY DATE: JAN 05, 2024@15:31:23 AUTHOR: NITA GUTIERREZ EXP COSIGNER: URGENCY: STATUS: COMPLETED DOAC PERIOP - Anticoagulant: Apixaban 5mg every 12 hours - Indication(s): atrial fibrillation - Relevant PMH: - morbid obesity, wt>150kg: Xa level 11/18/22 - Prior major bleeds: none - Prior 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: none - Start date: 10/29/22 while inpt - Anticipated duration: indefinite - [id number] = age, HTN, HFpEF, DM = 4: low risk - HASBLED = age = 1: moderate risk S/O: ---- Obtained by chart review. Procedure: colonoscopy w/likely bx Date: TBD Surgical bleed risk: high Thromboembolic/Bleed Risk: see above Dashboard flags: none LABS ---- Age: 73 Weight: 360 lb [163.29 kg] (11/05/2023 13:28) Height: 76 in [193.0 cm] (07/02/2023 13:54) CREATININE 1.2 PLASMA (10/07/23 11:36) 1.0 PLASMA (08/13/23 10:49) 1.0 PLASMA (07/10/23 05:30) Cockcroft & Gault (Actual body weight) = 124.7 mL/min Collection DT Spec WBC HGB HCT PLT MCV 07/07/2023 06:56 BLOOD 9.78 16.4 48.1 244 94.7 01/22/2023 10:52 BLOOD 9.21 15.1 46.7 262 94.3 Collection DT Specimen Test Name Result Units Ref Range 11/27/2022 10:53 PLASMA BILIRUBIN, TOTAL 0.5 mg/dL 0.2 - 1.2 11/27/2022 10:53 PLASMA ALKALINE PHOSPHAT 96 U/L 40 - 150 11/27/2022 10:53 PLASMA AST/SGOT 14 U/L Ref: <=34 11/27/2022 10:53 PLASMA ALT/SGPT 21 U/L Ref: <=55 10/28/2022 23:05 PLASMA DIR. BILIRUBIN 0.7 H mg/dL Ref: <0.5 A/P: ---- No enoxaparin bridging warranted with DOACs. If this procedure is rescheduled and new instructions are needed OR changes in health (ie: clotting complications, stroke) occur between now and the time of the procedure, anticoagulation clinic should be contacted. If procedure is rescheduled, these recommendations can be applied to new procedure date ONLY IF there are no changes to renal function or health (new thromboembolic event/CVA, recent clotting complications) since consult completion. A new consult should be submitted for reschedules if recent thromboembolic event/CVA occurred or there are renal function changes. DOAC should not be held if procedure is cancelled. - Do not take for 2 days before procedure, the day of procedure, OR the day after the procedure. The last preoperative dose is 3 days before the procedure. - If there are no major bleeding complications, resume 48-72 hours later (2 or 3 days after the procedure preferably 2 days) at the usual dose unless otherwise instructed by the proceduralist. - GI RN team responsible for educating patient on recommendations at pre-op call. If there are questions or concerns about holding anticoagulation, patient should be referred to anticoag clinic at [phone], option 3. Time: 15min /mateo/ Nita Gutierrez, Pharm.D. Clinical Multiple Pressure Riveter Operator Signed: 01/05/2024 15:37 NITA GUTIERREZ [facility]
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
--- OUTSIDE RECORDS SUMMARY | 2024-03-25 10:38 | XMS_ITS | Encounter Summary ---
Author Name [facility] [place] Organization [facility] [place] Address [address] [place] [id number] Care Team Providers Care Armature Varnisher Name Role Phone GELACIO MICHEL Primary Care [...] PART A Jul 21, 2014 PART A [id number] Miguelito CARRILLO PATIENT Selected Encounter This section includes the information on record at [place] for the Encounter. Date/Time Encounter Type Encounter Description Reason Provider Source Jan 06, 2024 02:45 PM EMERGENCY DEPT VISIT [facility] EMERGENCY DEPT ICD-10-CM J44.1 Chronic obstructive pulmonary disease w (acute) exacerbation LORRIE BUCKLEY E Encounter Template Text not used by [place] Assessments - Encounter Diagnoses This section includes the primary and secondary diagnoses documented for the Encounter. Date/Time Primary/Secondary Diagnosis Diagnosis Name Provider Source Jan 06, 2024 09:39 PM PRIMARY Chronic obstructive pulmonary disease w (acute) exacerbation LORRIE BUCKLEY [facility] Jan 06, 2024 09:39 PM SECONDARY Acute bronchitis, unspecified LORRIE BUCKLEY [facility] Plan of Treatment: Future Appointments (+ 6 months) and Future Tests (+/- 45 days) The Plan of Treatment section includes future care activities for the [facility] [place] [facility] This section includes future appointments and future orders which are active, pending or scheduled. Future Appointments This section includes appointments that were scheduled to occur 6 months from the date of the Encounter, up to a maximum of 20 appointments. The data comes from all [facility] facilities. Appointment Date/Time Appointment Type Appointme nt Facility Name Jan 08, 2024 07:45 PM AMBULATORY - NONE [place] [facility] Jan 12, 2024 01:15 PM AMBULATORY - [place] [facility] Jan 13, 2024 03:00 PM AMBULATORY - NONE [place] [facility] Jan 21, 2024 11:30 AM AMBULATORY - [place]IC[place] [facility] Feb 04, 2024 01:30 PM [facility] Feb 04, 2024 02:30 PM [facility] Feb 11, 2024 02:30 PM [facility] Feb 12, 2024 12:30 PM [facility] [place] [facility] Feb 12, 2024 01:30 PM [place] [facility] Feb 12, 2024 03:00 PM [facility] Feb 19, 2024 02:15 PM [facility] Feb 26, 2024 10:00 AM AMBULATORY - NONE [place] [facility] Mar 29, 2024 01:00 PM [facility] [place] [facility] Mar 29, 2024 02:00 PM [facility] [place] [facility] Mar 30, 2024 08:30 AM AMBULATORY - REHAB MEDICIN E [facility] Apr 01, 2024 10:00 AM AMBULATORY - NONE [place] [facility] Apr 12, 2024 10:15 AM AMBUL[place]ORY - [place] [facility] Apr 13, 2024 01:15 PM AM[place] [facility] Apr 13, 2024 01:30 PM AM[place]ORY [place]ICINE [place] [facility] Apr 13, 2024 02:00 PM [facility] Active, Pending, and Scheduled Orders [...] Chemi stry Order BNP PLASMA SP ONCE [facility] Lab Results: +/- 30 days of [...] Range Comment Feb 04, 2024 01:40 PM [facility] BNP Specimen Type: PLASMA No comment entered. Ordering Provider: JACOB VIRGEN Report Released Date/Time: Aug 13, 2023 11:38 AM Reporting Lab: [facility] [id number] Performing Lab: [facility] [address] BNP 23 pg/mL <99 Feb 04, 2024 01:40 PM [facility] BASIC METABOLIC PANEL+MG Specimen Type: PLASMA No comment entered. Ordering Provider: JACOB VIRGEN Report Released Date/Time: Aug 13, 2023 11:38 AM Reporting Lab: [facility] [address] Performing Lab: [facility] [address] CREATININE 1.2 mg/dL 0.7-1.2 UREA NITROGEN 18 mg/dL 8-26 GLUCOSE 102 mg/dL H 70-100 SODIUM 140 mmol/L 136-145 POTASSIUM 4.1 mmol/L 3.5-5.1 CHLORIDE 102 mmol/L 98-107 CO2 27 mmol/L 22-29 CALCIUM 10.0 mg/dL 8.4-10.2 MAGNESIUM 2.3 mg/dL 1.6-2.6 ANION GAP 11 mmol/L 5-15 .CREAT EGFR(CKD-EPI) 63 >60 Jan 06, 2024 03:40 PM [facility] COVID-19 DIAGNOSTIC PANEL (BIOFIRE) Specimen Type: NASOPHARYNGEAL Comment: Biofire Jef (618) Ordering Provider: ROXANNE BUCKLEY Report Released Date/Time: Jan 06, 2024 03:22 PM Reporting Lab: [facility] [address] Performing Lab: [facility] [address] C PNEUMONIAE PCR NOT DETECTED NOT DETECTED [...] NOT DETECTED Jan 06, 2024 03:22 PM [facility] POC CREATININE Specimen Type: BLOOD No comment entered. Ordering Provider: ALLISON PARRA Report Released Date/Time: Jan 06, 2024 03:24 PM Reporting Lab: [facility] [address] Performing Lab: [facility] [address] POC CREATININE 1.5 mg/dL 0.6-1.3 Jan 06, 2024 03:19 PM [facility] POC ABG/LACTATE Specimen Type: VENOUS BLOOD No comment entered. Ordering Provider: ALLISON PARRA Report Released Date/Time: Jan 06, 2024 03:24 PM Reporting Lab: [facility] [address] Performing Lab: [facility] [address] POC PH 7.402 7.31-7.41 POC PCO2 50.1 mm[Hg] 41-51 POC PO2 24 mm[Hg] POC TCO2 33 mmol/L 24-29 POC HCO3 31.2 mmol/L 23-28 POC BE ECT 6 mmol/L -2-3 POC SO2 41 POC LACTATE <1.6 mmol/L 0.90-1.70 Jan 06, 2024 03:14 PM [facility] EXTRA BLUE TUBE Specimen Type: PLASMA No comment entered. Ordering Provider: ROXANNE BUCKLEY Report Released Date/Time: Jan 06, 2024 03:36 PM Reporting Lab: [address] Performing Lab: [place] [address] EXTRA BLUE TUBE RECEIVED Jan 06, 2024 03:14 PM [facility] BNP Specimen Type: PLASMA No comment entered. Ordering Provider: ROXANNE BUCKLEY Report Released Date/Time: Jan 06, 2024 03:22 PM Reporting Lab: [facility] [address] Performing Lab: [place] [address] BNP 18 pg/mL <99 Jan 06, 2024 03:14 PM [facility] TROPONIN I, HS Specimen Type: PLASMA No comment entered. Ordering Provider: ROXANNE BUCKLEY Report Released Date/Time: Jan 06, 2024 03:22 PM Reporting Lab: [facility] [address] Performing Lab: [facility] [address] TROPONIN I, HS <3 <35 Jan 06, 2024 03:14 PM [facility] EXTRA GOLD GEL TUBE Specimen Type: SERUM No comment entered. Ordering Provider: ROXANNE BUCKLEY Report Released Date/Time: Jan 06, 2024 03:36 PM Reporting Lab: [facility] [address] Performing Lab: [facility] [address] EXTRA GOLD GEL TUBE RECEIVED Jan 06, 2024 03:14 PM [facility] CBC & DIFF Specimen Type: BLOOD Comment: Automated Differential Performed Ordering Provider: ROXANNE BUCKLEY Report Released Date/Time: Jan 06, 2024 03:22 PM Reporting Lab: [facility] [address] Performing Lab: [place] [address] WBC 11.27 10*3/uL H 4.0-11.0 RBC 4.81 [...] 10*3/uL 0-0.1 Jan 06, 2024 11:57 AM [facility] BASIC METABOLIC PANEL+MG Specimen Type: PLASMA No comment entered. Ordering Provider: HITESH HOLGUIN Report Released Date/Time: Oct 07, 2023 02:47 PM Reporting Lab: [facility] [address] Performing Lab: [facility] [address] CREATININE 1.0 mg/dL 0.7-1.2 UREA NITROGEN 16 mg/dL 8-26 GLUCOSE 112 mg/dL H 70-100 SODIUM 137 mmol/L 136-145 POTASSIUM 4.1 mmol/L 3.5-5.1 CHLORIDE 101 mmol/L 98-107 CO2 26 mmol/L 22-29 CALCIUM 9.6 mg/dL 8.4-10.2 MAGNESIUM 2.4 mg/dL 1.6-2.6 ANION GAP 10 mmol/L 5-15 .CREAT EGFR(CKD-EPI) 79 >60 Dec 30, 2023 11:00 AM [facility] .OCCULT BLOOD(FIT) Specimen Type: FECES No comment entered. Ordering Provider: SRUTHI ANDUJAR Report Released Date/Time: Dec 30, 2023 11:00 AM Reporting Lab: [place] [address] Performing Lab: [facility] [address] [facility] [address] .OCCULT BLOOD(FIT) POSITIVE HH Vital Signs: All taken on the encounter date This section contains inpatient and outpatient Vital Signs collected on the date of the Encounter. Date/Time Temperature Pulse Blood Pressure Respiratory Rate SP02 Pain Height Weight Body Mass Index Source Jan 06, 2024 02:47 PM 97.4 100 123/79 16 91 0 [facility] Jan 06, 2024 01:35 PM 93 115/75 16 92 0 [facility] Social History: Smoking Status (Most current) and [...] 19, 2020 12:07 PM VA-TOBACCO FORMER USER [facility] Tobacco Use History This section includes a history of the smoking, or tobacco-related health factors, that were collected on or before the date of the Encounter. The data comes from the [place] facility where the Encounter took place. Date/Time Smoking Status/Tobacco Use Comment F acility Dec 19, 2020 12:07 PM [place]-TOBACCO QUIT 5 TO < 15 YRS [facility] Aug 02, 2015 09:49 AM CURRENT TOBACCO USER [facility] Jun 06, 2014 08:51 AM CURRENT TOBACCO USER [facility] May 04, 2013 09:29 AM CURRENT TOBACCO USER [facility] Apr 24, 2012 07:40 AM CURRENT TOBACCO USER [facility] Advance Directives: All historical and current Section Date Range: From patient's date of to the date document was created. This section includes ALL of a patient's completed or amended [place] Advance and Rescinded Directives. The entries below indicate that a directive exists for the patient, but an actual copy is not included with this document. The data comes from all [facility]. Date Advance Directives Provider Source Jan [...] 2024 08:00 PM MRI-BRAIN (P): GILDA CARRILLO [id number] -[id number] M Exm Date: JAN 08, 2024@20:00 Req Phys: ROSEANN GAMA Loc: [facility] EYE RESIDENT FOL/UP (Req'g Img Loc: MRI IMAGING Service: [place] [address] (Case [id number] COMPLETE) MRI BRAINBRAINSTEM W & W/O CONTRA(MRI Detailed) CPT:88771 Contrast Media : Gadolinium Reason for Study: gradual right eye vision loss over with right optic nerve atroph (Case [id number] COMPLETE) MRI NECK/FACE/ORBIT W/CONTRAST (MRI Detailed) CPT:02734 Contrast Media : Gadolinium Clinical History: Per Joint Commission Standards, by signing this diagnostic imaging request the ordering provider confirms they have considered patients age and recent imaging history. Did the ordering provider speak with a peoplesoft financials consultant regarding this imaging exam? 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 Primary Interpreting Staff: OSBALDO RODEGRS MD, RADIOLOGIST ([employer] Salesperson) /[facility] OSBALDO RODGERS [facility] Jan 06, 2024 03:24 PM CHEST 1 VIEW: GILDA CARRILLO RAY [id number] -[id number] M Exm Date: JAN 06, 2024@15:24 Req Phys: ANNI BUCKLEY Pat Loc: [facility] EMERGENCY DEPT WALK-IN (Re Img Loc: MAIN X-RAY Service: [place] [address] (Case [id number] COMPLETE) CHEST 1 VIEW (RAD Detailed) CPT:12622 Proc Modifiers : PORTABLE EXAM Reason for [...] 06, 2024 Date Verified: JAN 06, 2024 [employer] Furnish[employer] Salesperson E-Sig:/ES/BHARAT PARKER MD Report: EXAMINATION: CHEST 1 [...] Primary Interpreting Staff: BHARAT PARKER MD, RADIOLOGIST ([employer] Salesperson) /RTS BHARAT PARKER [facility] Encounter Notes: All associated encounter notes This section contains the clinical notes associated to the Encounter. Date/Time Encounter Note(s) Provider Source Jan 06, 2024 03:44 PM NURSING NOTE: LOCAL TITLE: [facility] NSG IV INSERTION AND MAINTENANCE STANDARD TITLE: NURSING NOTE DATE OF NOTE: JAN 06, 2024@15:44 ENTRY DATE: JAN 06, 2024@15:44:54 AUTHOR: MIRACLE HUDSON COSIGNER: URGENCY: STATUS: COMPLETED Version 2.2 Charting in accordance with [place] APPROVED [place] STANDARD (VAAES) ACUTE INPATIENT/REHABILITATION NURSING ADMISSION SCREENING, ASSESSMENT, AND STANDARDS OF CARE == IV Line Insertion and Maintenance == == Peripheral IV == Line #1: Insertion: Date/Time: Dec@15:45 Inserted by (name): SHEA Giraldo Location: Right, Antecubital Gauge: 18 Comment: Labs drawn upon insertion. /es/ MIRACLE HUDSON [facility] WORKER Signed: 01/06/2024 15:45 MIRACLE HUDSON [facility] Jan 06, 2024 03:35 PM PHYSICIAN EMERGENCY DEPT NOTE: LOCAL TITLE: EMERGENCY DEPT NOTE STANDARD TITLE: PHYSICIAN EMERGENCY DEPT NOTE DATE OF NOTE: JAN 06, 2024@15:35 ENTRY DATE: JAN 06, 2024@15:35:18 AUTHOR: ANNI BUCKLEY COSIGNER: URGENCY: STATUS: COMPLETED Personal Protective Equipment (PPE): MD/PA/THERMOMETER PRODUCTION WORKER used PPE during every encounter with the patient Nurse's note reviewed. Chief Complaint: The patient is a 73 y/o MALE complaining of: Shortness of breath, cough TDAP/TD Immunizations ADMINISTERED Immunization Series Date Facility Reaction Info TDAP 11/05/2023 [place] [facility] [place] * TDAP [place]anda CONTRAINDICATED No data available REFUSED ======= No data available * Value is truncated; see the Detailed Immunizations Health Summary Component[DIM] for complete text Covid-19 Immunizations ADMINISTERED Immunization Series Date Facility Reaction Info COVID-19 (PFIZER), MRNA, LNP-S, * 1 02/13/2021 [place] <C> COVID-19 (PFIZER), MRNA, LNP-S, * 2 03/07/2021 [place] <C> CONTRAINDICATED No data available REFUSED ======= Immunization Date Facility Info COVID-19 (PFIZER), MRNA, LNP-S, * 11/18/2022 [place] [facility] [place] * <I> <C> See the Detailed Immunizations Health Summary Component[DIM] for Comments <I> See the Detailed Immunizations Health Summary Component[DIM] for Additional Information * Value is truncated; see the Detailed Immunizations Health Summary Component[DIM] for complete text History of present illness: This is a 73-year-old male with past medical history including COPD, diastolic dysfunction on furosemide, lung nodule, atrial fibrillation on apixaban, type II DM, who presents from cardiology clinic for evaluation of shortness of breath and cough. The patient reports that over the past 1 to 2 weeks he has been experiencing increasing shortness of breath with a cough. He does a chronic cough related to his COPD but he feels that he has been unable to get up the sputum that he normally is able to produce. He denies any fevers. He denies any new lower extremity edema that he has noticed. No hemoptysis. No chest pain. Allergies: Patient has answered NKA Past Medical History: Active problems - Computerized Problem List is the source for the followin. Hypertension (SNOMED CT 79689632) 2. Tachycardia - EKG 04/24/[address] no acute ST or T wave changes 3. Chronic back pain (SNOMED CT 551027714) - s/p laminectomy L2-4 '00 - disability parking permit application completed 03/10/18 with exp date 03/2023 4. Other and unspecified alcohol dependence, unspecified drinking behavior 5. Tobacco use (SNOMED CT 365871125) - quit >25yr use 6. SCREEN - c scope - AAA due 65-75 - DEXA due >70 7. 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 SURGERY Hx - laminectomy L2-4 '00 - tonsilectomy - adenoidectomy - R tympanoplasty 9. LUNG LESION - incidental on c-xray 04/21/12 ER @[place] - CT chest 05/01/12 @[place] - CT chest 05/25/12 @[place] lung nodules, new effusion, rib frx - [...] 12. Solitary nodule of lung (SNOMED CT 344142023) 13. Chronic obstructive lung disease - PFT done 08/28/15 @[facility] 14. Degenerative joint disease - CT 06/08/2016; bilateral hips mod/severe 15. Benign localized hyperplasia of prostate 16. Arthritis of right hip 17. Lumbar spondylosis 18. Bilateral foot pain 19. Psoriasis 20. Venous stasis edema of bilateral lower limbs 21. Lipodermatosclerosis 22. Diabetes Mellitus Type 2 (SCT 13306831) 23. Diastolic dysfunction 24. Paroxysmal atrial fibrillation 25. Long-term current use of anticoagulant 26. Persistent atrial fibrillation 27. Exposure to potentially hazardous substance ([facility] [id number]) - Entered through [facility] Documentation Initiative 28. Drug monitoring done Medications: Active Outpatient Medications (excluding Supplies): Outpatient Medications Status 1) A & [...] AT BEDTIME FOR DRY EYES 20) NYSTATIN 712346 UNT/GM CREAM APPLY THIN LAYER ACTIVE TOPICALLY [...] SHAMPOO 2%SHAMPOO TOPICALLY ACTIVE 31 Total Medications Physical Exam: BP: 123/79 (01/06/2024 14:47) P: 100 (01/06/2024 14:47) R: 16 (01/06/2024 14:47) T: 97.4 F [36.3 C] (01/06/2024 14:47) O2 Sats: 91% (01/06/2024 14:47) Room air General: well developed, well nourished Increased work of breathing, appears mildly uncomfortable ENT: MMM. Uvula midline. No tongue elevation or angioedema noted. Normal phonation. Cardiovascular: Regular rate, irregular rhythm. Respiratory: Lungs - Inspiratory and expiratory wheezes throughout all lung quick. Increased work of breathing. Neuro: Awake and alert, answering questions following commands appropriately. No somnolence. Extremities: No significant lower extremity edema. Ekg Interpretation: Atrial fibrillation with a rate of 97. Some baseline wander mildly limiting interpretation, no ST or T wave changes to raise suspicion for acute ischemia. ED Course/Medical Decision Making/Assessment: CPRS Notes/Labs Reviewed for Patient Encounter: Emergency department triage, emergency department nursing note, Patient with above history and exam presents with vital signs notable for mild tachycardia with heart rate of 100, oxygen saturations somewhat low at 91% on room air, otherwise unremarkable. No fever here. A broad differential was considered. On exam he has significant history and expiratory wheezing throughout bilateral lung quick with history of COPD, so DuoNeb and Solu-Medrol ordered. After initial Duoneb, he felt somewhat better and wheezing was improved, though still had end expiratory wheezes bilaterally, so second Duoneb ordered. EKG shows atrial fibrillation with rate of 97, no signs suggestive of acute ischemia and no chest pain. Troponin <3. Low suspicion for ACS. Biofire viral swab all negative. Labs notable for mild leukocytosis of 11.27. HR mildly elevated at 100 on arrival, so does technically meet SIRS criteria, though he is afebrile, lactate within normal limits, so low suspicion for sepsis at this time. CXR does not show any new infiltrates or effusions or other acute pathology to clearly explain his symptoms today. Bronchitis with COPD exacerbation on the differential, but given the leukocytosis, bacterial pneumonia without appreciable infiltrates is also a possibility. On recheck, patient reports he is feeling much better and is requesting discharge home. I feel this is reasonable. He does not normally ambulate very much but does get around at home with a walker for short distances, but he reports that he chronically does get out of breath walking around his home and he currently feels much better than when he initially presented and he reassured me that he currently feels back to his usual respiratory status baseline. Repeat auscultation shows significant improvement in his wheezing, though he does still have some end expiratory wheezes. He does not appear to be in respiratory distress at this time. At this point, the most likely cause of his symptoms appears to be COPD exacerbation with bronchitis. He has a very mild leukocytosis of 11.27. As per above, I considered sepsis but have a low suspicion for this. Also considered possible developing community-acquired pneumonia which is not yet visible on chest x-ray. We will plan to treat for COPD exacerbation with a course of prednisone as well as antibiotics which will also cover for community-acquired pneumonia. Patient comfortable with this plan and would really like to discharge home. Oxygen saturations reassuring, vital signs remain reassuring. Advised patient to follow-up with his primary care provider for COPD follow-up and to evaluate whether his COPD maintenance medication regimen requires any adjustment. We also had a detailed discussion of signs and symptoms that should prompt immediate return to the emergency department and the patient voiced understanding and agreement with the plan of care. Questions were elicited and answered. Patient discharged in stable condition. Diagnosis and Plan: 1. COPD exacerbation 2. Bronchitis Disposition: Discharge home /mateo/ ANNI BUCKLEY MD EMERGENCY MEDICINE PHYSICIAN Signed: 01/06/2024 21:38 Receipt Acknowledged By: 01/07/2024 16:29 /mateo/ GELACIO MICHEL DNP,ANNI Wan [facility] Jan 06, 2024 02:50 PM NURSING EMERGENCY DEPT TRIAGE NOTE: LOCAL TITLE: EMERGENCY DEPARTMENT NURSING TRIAGE NOTE STANDARD TITLE: NURSING EMERGENCY DEPT TRIAGE NOTE DATE OF NOTE: JAN 06, 2024@14:50 ENTRY DATE: JAN 06, 2024@14:50:23 AUTHOR: RAJ DENISE EXP COSIGNER: URGENCY: STATUS: COMPLETED Emergency Department/Urgent Care Center Triage Patient age:73 Sex: MALE On arrival patient was: WHEELCHAIR Patient phone number: Allergies: Patient has answered NKA Subjective/Chief Complaint: Sent from clinic for SOB/wheezing. Objective: Pt reports he is SOB but losing wt. Denies increased leg swelling. Able to talk in full sentences. Admits to a cough with white foamy sputum. The patient is a fall risk. Intervention: In a scooter Vital Signs * Blood Pressure: 123/79 (01/06/2024 14:47) Heart Rate: 100 (01/06/2024 14:47) Respirations: 16 (01/06/2024 14:47) Temperature: 97.4 F [36.3 C] (01/06/2024 14:47) Pain: 0 (01/06/2024 14:47) Weight: 360 lb [163.29 kg] (11/05/2023 13:28) O2 Sats: 91% (01/06/2024 14:47) Emergency Severity Index (DRAGAN) level Level 3 Current Medications: Active Outpatient Medications (including Supplies): Active [...] MOUTH ONCE ACTIVE FOR COLON PREP 7) BRIEF,TRANQUILITY AUGUSTIN OVERNITE XXL#2948 USE BRIEF ACTIVE DIRECTED NEEDED 8) CARBOXYMETHYLCELLULOSE NA 0.5% OPH SOLN INSTILL 1 ACTIVE DROP IN BOTH EYES FOUR TIMES A DAY FOR DRY EYES 9) CLEANSING CLOTH ATTENDS PKT USE 1 WASHCLOTH TOPICALLY ACTIVE DIRECTED 10) COLON ELECTROLYTE LAVAGE PWD FOR SOLN TAKE ONE ACTIVE CONTAINER BY MOUTH DIRECTED FOR COLON PREP 11) DICLOFENAC NA 1% TOP GEL APPLY 2 GRAMS TOPICALLY TWO ACTIVE TIMES A DAY NEEDED FOR PAIN -USE DOSE CARD IN BOX TO MEASURE DOSE -MAXIMUM OF 32 GM PER DAY 12) DOFETILIDE 250MCG CAP TAKE ONE CAPSULE BY MOUTH TWICE ACTIVE A DAY FOR ATRIAL FIBRILLATION 13) DRESSING,MEPILEX BORDER HEEL 8.7INX9.1IN APPLY 1 ACTIVE DRESSING TOPICALLY THREE TIMES WEEKLY 14) EMPAGLIFLOZIN 25MG TAB TAKE ONE-HALF TABLET BY MOUTH ACTIVE EVERY MORNING FOR HEART FAILURE 15) FLUTICASONE PROP 50MCG 120D NASAL INHL SPRAY 2 SPRAYS ACTIVE IN EACH NOSTRIL EVERY DAY FOR NASAL DRIP 16) FUROSEMIDE 40MG TAB TAKE TWO TABLETS BY MOUTH EVERY ACTIVE (S) MORNING FOR EXCESS FLUID FOR WEIGHT GAIN OR WORSENING HEART FAILURE SYMPTOMS 17) GABAPENTIN 400MG CAP TAKE ONE CAPSULE BY MOUTH FOUR ACTIVE TIMES A DAY FOR PAIN AND NUMBNESS 18) GUAIFENESIN 200MG TAB TAKE TWO TABLETS BY MOUTH THREE ACTIVE TIMES A DAY FOR COPD/COUGH/MUCUS 19) LIDOCAINE 5% PATCH APPLY 3 PATCHES TOPICALLY EVERY ACTIVE DAY FOR PAIN. WEAR FOR ONLY 12 HOURS THEN REMOVE FOR 12 HOURS. ONE PATCH FOR EACH HIP AND ONE PATCH FOR LOW BACK 20) LORAZEPAM 1MG TAB TAKE ONE TABLET BY MOUTH ACTIVE DIRECTED ONE HOUR PRIOR TO VISIT AND ONE TABLET DURING THE VISIT FOR MRI. FOR CLAUSTROPHOBIA 21) LOSARTAN 50MG TAB TAKE ONE TABLET BY MOUTH EVERY ACTIVE MORNING FOR HEART FAILURE 22) LUBRICATING (PF) OPH OINT APPLY A SMALL AMOUNT TO ACTIVE BOTH EYES AT BEDTIME FOR DRY EYES 23) NYSTATIN 528684 UNT/GM CREAM APPLY THIN LAYER ACTIVE TOPICALLY TWICE A DAY FUNGAL INFECTION EXTERNAL USE ONLY APPLY TO PANNUS 24) POLYETHYLENE GLYCOL 3350 ORAL PWDR TAKE 17 GRAMS BY ACTIVE MOUTH EVERY DAY NEEDED FOR CONSTIPATION 25) POTASSIUM CL 20MEQ SA TAB (DISPERSIBLE) TAKE TWO ACTIVE TABLETS BY MOUTH TWICE A DAY FOR POTASSIUM SUPPLEMENT 26) SEMAGLUTIDE 2MG/0.75ML INJ PEN 3ML INJECT 2MG UNDER ACTIVE THE SKIN EVERY WEEK FOR DIABETES 27) SKIN PREP WIPE USE 1 WIPE TOPICALLY THREE TIMES A ACTIVE WEEK REPLACES SKIN BARRIER FILM DUE TO BACKORDER 28) SPIRONOLACTONE 25MG TAB TAKE ONE TABLET BY MOUTH ACTIVE EVERY DAY FOR HEART FAILURE 29) TAZAROTENE 0.1% TOP CREAM APPLY THIN LAYER TOPICALLY ACTIVE AT BEDTIME TO THE FEET WITH THE 40% UREA CREAM, UNDER OCCLUSION DIRECTED 30) TRAZODONE HCL 50MG TAB TAKE ONE TABLET BY MOUTH AT ACTIVE BEDTIME FOR SLEEP 31) TRIAMCINOLONE ACETONIDE 0.1% OINT APPLY THIN LAYER ACTIVE TOPICALLY TWICE A DAY AVOID FACE,GROIN & ARMPITS *FOR EXTERNAL USE ONLY APPLY TO INTACT SKIN ON LOWER LEGS AFTER DILUTE VINEGAR OR VASHE SOAKS. WRAP WITH KERLIX. 32) UNDERPAD,BED 23IN X 36IN PLASTIC BACK USE CHUX ACTIVE DIRECTED 33) UREA 40% CREAM APPLY THIN LAYER TOPICALLY EVERY DAY ACTIVE DIRECTED FOR THICK SKIN 34) VANICREAM TOP CREAM APPLY THIN LAYER TOPICALLY EVERY ACTIVE DAY IDEALLY WITHIN 3 MINUTES AFTER BATH OR SHOWER. TO ALL AREAS OF SKIN FOR MOISTURIZER FOR DRY SKIN 35) ZINC OXIDE 20% OINT APPLY SMALL AMOUNT TOPICALLY ACTIVE THREE TIMES A WEEK NEEDED FOR WOUND PREVENTION Active Non-VA Medications Status 1) Non-VA KETOCONAZOLE SHAMPOO 2%SHAMPOO TOPICALLY ACTIVE 36 Total Medications Current Problems: Hypertension ([facility] [id number]) Tachycardia (ICD-9-CM 785.0) Chronic back pain ([facility] 840040810) Other and unspecified alcohol dependence, unspecified drinking behavior (ICD-9-CM 303.90) Tobacco use ([facility] [id number]) SCREEN (ICD-9-CM 799.9) SOCIAL Hx (ICD-9-CM 799.9) SURGERY Hx (ICD-9-CM 799.9) LUNG LESION (ICD-9-CM 799.9) Family social history ([facility] [id number]) Body mass index 40+ - severely obese (SCSolitary nodule of lung (ICD-9-CM 518.89) Chronic obstructive lung disease ([facility] 13Degenerative joint disease ([facility] 414790846) Benign localized hyperplasia of prostateArthritis of right hip ([facility] 1679849460810545) Lumbar spondylosis ([facility] 733267214) Bilateral foot pain ([facility] 82333923532604372) Psoriasis ([facility] 7927168) Venous stasis edema of bilateral lower limbs ([facility] 30874733471404423) Lipodermatosclerosis ([facility] 745555760) Diabetes Mellitus Type 2 ([facility] 67952936) Diastolic dysfunction ([facility] 9240242) Paroxysmal atrial fibrillation ([facility] 071100161) Long-term current use of anticoagulant (Persistent atrial fibrillation ([facility] 990350267) Exposure to potentially hazardous substaDrug monitoring done ([facility] 214664453) Identification of Seniors at Risk (ISAR):* Defer screen <75 Suicide Screen: [place] Suicide Severity Rating Scale (C-SSRS) screener 1. [...] required due to responses to other questions. /mateo/ RAJ DENISE RN MARINE ELECTRICIAN Signed: 01/06/2024 14:54 RAJ DENISE [facility]
--- OUTSIDE RECORDS SUMMARY | 2024-03-25 10:38 | XMS_ITS | Encounter Summary ---
Author Name [facility] [facility] [place] Address [address] [place] [address] Care Team Providers Care Director Of Services Name Role Phone GELACIO MICHEL Primary Care [...] Member ID Insurance Provider's Telephone Number Policy Gruber's Name Patient's Relationship to Policy Gruber MEDICARE (WNR) MEDICARE (M) PART A Jul 21, 2014 PART A [id number] Miguelito CARRILLO PATIENT Selected Encounter This section includes the information on record at AL for the Encounter. Date/Time Encounter Type Encounter Description Reason Provider Source Jan 06, 2024 01:00 AM Outpatient Encounter ADMIN PAT ACTIVTIES ([employer]) SYSTEM,[facility] Encounter Template Text not used by AL Plan of Treatment: Future Appointments (+ 6 months) and Future Tests (+/- 45 days) The Plan of Treatment section includes future care activities for the patient from all [place] treatmentfacilities. This section includes future appointments and future orders which are active, pending or scheduled. Future Appointments This section includes appointments that were scheduled to occur 6 months from the date of the Encounter, up to a maximum of 20 appointments. The data comes from all [facility]. Appointment Date/Time Appointment Type Appointme nt Facility Name Jan 08, 2024 07:45 PM [facility] Jan 12, 2024 01:15 PM AMBULATORY [facility] SURG[facility] Jan 13, 2024 03:00 PM AMBULATORY - NONE [facility] Jan 21, 2024 11:30 AM [facility]BULATORY - MEDICINE [facility] Feb 04, 2024 01:30 PM [facility] Feb 04, 2024 02:30 PM [facility] Feb 11, 2024 02:30 PM [facility] Feb 12, 2024 12:30 PM [facility] Feb 12, 2024 01:30 PM AMBULATORY - SURGERY [facility] Feb 12, 2024 03:00 PM AMBULATORY - SURGERY [facility] Feb 19, 2024 02:15 PM [facility] Feb 26, 2024 10:00 AM AMBULATORY - NONE [facility] Mar 29, 2024 01:00 PM AMBULATORY - SURGERY [facility] Mar 29, 2024 02:00 PM AMBULATORY - SURGERY [facility] Mar 30, 2024 08:30 AM AMBULATORY - REHAB [facility] Apr 01, 2024 10:00 AM AMBULATORY - NONE [facility] Apr 12, 2024 10:15 AM AMBULATORY - SURGERY [facility] Apr 13, 2024 01:15 PM AMBULATORY - MEDICINE [facility] Apr 13, 2024 01:30 PM AMBULATORY - MEDICINE [facility] Apr 13, 2024 02:00 PM AMBULATORY - MEDICINE [facility] Active, Pending, and Scheduled Orders This section includes a listing of several types of active, pending, and scheduled orders, including clinic medications orders, diagnostic test orders, procedure orders and consult orders; where the start date of the order is 45 days before the date of the Encounter or 45 days after the date of theEncounter. The data comes from all [facility]. Test Date/Time Test Type Test Details Facility Name Jan 06, 2024 12:00 AM Laboratory - Chemi stry Order BNP PLASMA SP ONCE [facility] Lab Results: +/- 30 days of the encounter This section includes the Chemistry and Hematology Lab Results on record with AL for the patient. Radiology Reports and Pathology Reports are provided separately, in subsequent sections. Lab Results This section contains the Chemistry/Hematology Results that were resulted 30 days before or 30 daysafter the date of the Encounter. Date/Time Source Result Type Result - Unit Interpretation Reference Range Comment Feb 04, 2024 01:40 PM [facility] BNP Specimen Type: PLASMA No comment entered. Ordering Provider: JACOB VIRGEN Report Released Date/Time: Aug 13, 2023 11:38 AM Reporting Lab: [facility] [address] Performing Lab: [facility] [address] BNP 23 pg/mL <99 Feb 04, 2024 01:40 PM [facility] BASIC METABOLIC PANEL+MG Specimen Type: PLASMA No comment entered. Ordering Provider: JACOB VIRGEN Report Released Date/Time: Aug 13, 2023 11:38 AM Reporting Lab: [facility] [address] Performing Lab: [facility] [address] CREATININE 1.2 mg/dL 0.7-1.2 UREA NITROGEN 18 mg/dL 8-26 GLUCOSE 102 mg/dL H 70-100 SODIUM 140 mmol/L 136-145 POTASSIUM 4.1 mmol/L 3.5-5.1 CHLORIDE 102 mmol/L 98-107 CO2 27 mmol/L 22-29 CALCIUM 10.0 mg/dL 8.4-10.2 MAGNESIUM 2.3 mg/dL 1.6-2.6 ANION GAP 11 mmol/L 5-15 .CREAT EGFR(CKD-EPI) 63 >60 Jan 06, 2024 03:40 PM [facility] COVID-19 DIAGNOSTIC PANEL (BIOFIRE) Specimen Type: NASOPHARYNGEAL Comment: Biofire Torch (598) Ordering Provider: ROXANNE BUCKLEY Report Released Date/Time: Jan 06, 2024 03:22 PM Reporting Lab: [facility] [address] Performing Lab: [facility] [address] C PNEUMONIAE PCR NOT DETECTED NOT DETECTED [...] NOT DETECTED Jan 06, 2024 03:22 PM [facility] POC CREATININE Specimen Type: BLOOD No comment entered. Ordering Provider: ALLISON PARRA Report Released Date/Time: Jan 06, 2024 03:24 PM Reporting Lab: [facility] [address] Performing Lab: [facility] [address] POC CREATININE 1.5 mg/dL 0.6-1.3 Jan 06, 2024 03:19 PM [facility] POC ABG/LACTATE Specimen Type: VENOUS BLOOD No comment entered. Ordering Provider: ALLISON PARRA Report Released Date/Time: Jan 06, 2024 03:24 PM Reporting Lab: [facility] [address] Performing Lab: [facility] [address] POC PH 7.402 7.31-7.41 POC PCO2 50.1 mm[Hg] 41-51 POC PO2 24 mm[Hg] POC TCO2 33 mmol/L 24-29 POC HCO3 31.2 mmol/L 23-28 POC BE ECT 6 mmol/L -2-3 POC SO2 41 POC LACTATE <1.6 mmol/L 0.90-1.70 Jan 06, 2024 03:14 PM [facility] EXTRA BLUE TUBE Specimen Type: PLASMA No comment entered. Ordering Provider: ROXANNE BUCKLEY Report Released Date/Time: Jan 06, 2024 03:36 PM Reporting Lab: [facility] [address] Performing Lab: [facility] [address] EXTRA BLUE TUBE RECEIVED Jan 06, 2024 03:14 PM [facility] BNP Specimen Type: PLASMA No comment entered. Ordering Provider: ROXANNE BUCKLEY Report Released Date/Time: Jan 06, 2024 03:22 PM Reporting Lab: [facility] [address] Performing Lab: [facility] [address] BNP 18 pg/mL <99 Jan 06, 2024 03:14 PM [facility] TROPONIN I, HS Specimen Type: PLASMA No comment entered. Ordering Provider: ROXANNE BUCKLEY Report Released Date/Time: Jan 06, 2024 03:22 PM Reporting Lab: [facility] [address] Performing Lab: [facility] [address] TROPONIN I, HS <3 <35 Jan 06, 2024 03:14 PM [facility] EXTRA GOLD GEL TUBE Specimen Type: SERUM No comment entered. Ordering Provider: ROXANNE BUCKLEY Report Released Date/Time: Jan 06, 2024 03:36 PM Reporting Lab: [facility] [address] Performing Lab: [facility] [address] EXTRA GOLD GEL TUBE RECEIVED Jan 06, 2024 03:14 PM [facility] CBC & DIFF Specimen Type: BLOOD Comment: Automated Differential Performed Ordering Provider: ROXANNE BUCKLEY Report Released Date/Time: Jan 06, 2024 03:22 PM Reporting Lab: [facility] [address] Performing Lab: [facility] [address] WBC 11.27 10*3/uL H 4.0-11.0 RBC 4.81 [...] 10*3/uL 0-0.1 Jan 06, 2024 11:57 AM [facility] BASIC METABOLIC PANEL+MG Specimen Type: PLASMA No comment entered. Ordering Provider: HITESH HOLGUIN Report Released Date/Time: Oct 07, 2023 02:47 PM Reporting Lab: [facility] [address] Performing Lab: [facility] [address] CREATININE 1.0 mg/dL 0.7-1.2 UREA NITROGEN 16 mg/dL 8-26 GLUCOSE 112 mg/dL H 70-100 SODIUM 137 mmol/L 136-145 POTASSIUM 4.1 mmol/L 3.5-5.1 CHLORIDE 101 mmol/L 98-107 CO2 26 mmol/L 22-29 CALCIUM 9.6 mg/dL 8.4-10.2 MAGNESIUM 2.4 mg/dL 1.6-2.6 ANION GAP 10 mmol/L 5-15 .CREAT EGFR(CKD-EPI) 79 >60 Dec 30, 2023 11:00 AM [facility] .OCCULT BLOOD(FIT) Specimen Type: FECES No comment entered. Ordering Provider: SRUTHI ANDUJAR Report Released Date/Time: Dec 30, 2023 11:00 AM Reporting Lab: [facility] [address] Performing Lab: [place] [address] [facility] [address] .OCCULT BLOOD(FIT) POSITIVE Vital Signs: All taken on the encounter date This section contains inpatient and outpatient Vital Signs collected on the date of the Encounter. Date/Time Temperature Pulse Blood Pressure Respiratory Rate SP02 Pain Height Weight Body Mass Index Source Jan 06, 2024 02:47 PM 97.4 100 123/79 16 91 0 [facility] Jan 06, 2024 01:35 PM 93 115/75 16 92 0 [facility] Social History: Smoking Status (Most current) and Tobacco Use (All prior to encounter date) This section includes the most current, and the historical, smoking and tobacco- related health factors from the AL facility where the Encounter took place. Current Smoking Status This section includes the most current smoking, or tobacco-related health factor, from the AL facility where the Encounter took place. Date/Time Current Smoking Status Comment Facil ity Dec 19, 2020 12:07 PM VA-TOBACCO FORMER USER [facility] Tobacco Use History This section includes a history of the smoking, or tobacco-related health factors, that were collected on or before the date of the Encounter. The data comes from the AL facility where the Encounter took place. Date/Time [...] ALL of a patient's completed or amended [place] Advance and Rescinded Directives. The entries below indicate that a directive exists for the patient, but an actual copy is not included with this document. The data comes from all [facility]. Date Advance Directives Provider Source Jan 02, 2023 STATE-AUTHORIZED PORTABLE ORDERS [facility] Radiology Reports: +/- 30 days of [...] the Encounter. The data comes from all [place] treatment facilities. Date/Time Radiology Report Provider Source Jan 08, 2024 08:00 PM MRI-BRAIN (P): GILDA CARRILLO [id number] -[id number] M Exm Date: JAN 08, 2024@20:00 Req Phys: ROSEANN GAMA Loc: [facility] EYE RESIDENT FOL/UP (Req'g Img Loc: MRI IMAGING Service: [place] [address] (Case [id number] COMPLETE) MRI BRAINBRAINSTEM W & W/O CONTRA(MRI Detailed) CPT:77845 Contrast Media : Gadolinium Reason for Study: gradual right eye vision loss over with right optic nerve atroph (Case [id number] COMPLETE) MRI NECK/FACE/ORBIT W/CONTRAST (MRI Detailed) CPT:86395 Contrast Media : Gadolinium Clinical History: Per Joint Commission Standards, by signing this diagnostic imaging request the ordering provider confirms they have considered patients age and recent imaging history. Did the ordering provider speak with a sap pp consultant regarding this imaging exam? 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 Responsible provider name and phone number to notify for critical findings if other than user placing the order and pager listed below: User placing orders pager: [phone] LAST CREATININE 1.2 (10/07/23) Allergies: Patient has answered NKA Report Status: Verified Date Reported: JAN 09, 2024 Date Verified: JAN 09, 2024 Software Programmer E-Sig:/ES/OSBALDO RODGERS MD Report: MRI BRAINBRAINSTEM W [...] Primary Interpreting Staff: OSBALDO RODGERS MD, RADIOLOGIST (Software Programmer) /CDC OSBALDO RODGERS [facility] Jan 06, 2024 03:24 PM CHEST 1 VIEW: GILDA CARRILLO RAY [id number] -1950 M Ex Date: JAN 06, 2024@15:24 Req Phys: ANNI BUCKLEY Loc: [facility] EMERGENCY DEPT WALK-IN (Re Img Loc: MAIN X-RAY Service: [place] [address] (Case [id number] COMPLETE) CHEST 1 VIEW (RAD Detailed) CPT:32524 Proc Modifiers : PORTABLE EXAM Reason for [...] 06, 2024 Date Verified: JAN 06, 2024 Software Programmer E-Sig:/ES/BHARAT PARKER MD Report: EXAMINATION: CHEST 1 [...] Primary Interpreting Staff: BHARAT PARKER MD, RADIOLOGIST (Software Programmer) /BHARAT TSAI [facility] Encounter Notes: All associated encounter notes This section contains the clinical notes associated to the Encounter. Date/Time Encounter Note(s) Provider Source Jan 06, 2024 01:00 AM CRITICAL CARE UNIT NOTE: [facility] FL[facility] STANDARD TITLE: CRITICAL CARE UNIT NOTE DATE OF NOTE: JAN 06, 2024@01:00 ENTRY DATE: JAN 07, 2024@01:30:49 AUTHOR: VONNIE FRANKEL EXP COSIGNER: URGENCY: STATUS: COMPLETED This is a place gruber only. Please see [place] to view document. /mateo/ JANAYCriptextKAYLENE SYSTEM ICU DOCUMENT IMPORT Signed: 01/07/2024 01:30 VONNIE FRANKEL [facility] Jan 06, 2024 01:00 AM CRITICAL CARE UNIT NOTE: LOCAL TITLE: [facility] RESPIRATORY THERAPY FLOWSHEET STANDARD TITLE: CRITICAL CARE UNIT NOTE DATE OF NOTE: JAN 06, 2024@01:00 ENTRY DATE: JAN 07, 2024@15:08:22 AUTHOR: VONNIE FRANKEL EXP COSIGNER: URGENCY: STATUS: COMPLETED This is a place gruber only. Please see [place] to view document. /es/ [facility] ICU DOCUMENT IMPORT Signed: 01/07/2024 15:08 SYSTEM,[facility]
--- OUTSIDE RECORDS SUMMARY | 2024-03-25 10:38 | XMS_ITS | Encounter Summary ---
Author Name [facility] [place] Organization [facility] [place] Address [address] [place] [address] Care Team Providers Care Tar Processing Technician Name Role Phone GELACIO MICHEL Primary Care [...] PART A Jul 21, 2014 PART A [id number] [phone] Miguelito CARRILLO PATIENT Selected Encounter This section includes the information on record at [place] for the Encounter. Date/Time Encounter Type Encounter Description Reason Provider Source Jan 06, 2024 12:30 PM ELECTROCARDIOGRAM REPORT EKG ICD-10-CM Z13.6 Encounter for screening for cardiovascular disorders ANY GONZÁLES IHE Encounter Template Text not used by [place] Assessments - Encounter Diagnoses This section includes the primary and secondary diagnoses documented for the Encounter. Date/Time Primary/Secondary Diagnosis Diagnosis Name Provider Source Jan 06, 2024 12:20 PM PRIMARY Encounter for screening for cardiovascular disorders BETO GONZÁLES [facility] Plan of Treatment: Future Appointments (+ 6 months) and Future Tests (+/- 45 days) The Plan of Treatment section includes future care activities for the patient from [facility] [place] [facility] This section includes future appointments and future orders which are active, pending or scheduled. Future Appointments This section includes appointments that were scheduled to occur 6 months from the date of the Encounter, up to a maximum of 20 appointments. The data comes from all [facility]. Appointment Date/Time Appointment Type Appointme nt Facility Name Jan 08, 2024 07:45 PM AM[facility]UL[facility] NONE [facility] Jan 12, 2024 01:15 PM AMBULATORY - SURGERY [facility] Jan 13, 2024 03:00 PM AMBULATORY - NONE [facility] Jan 21, 2024 11:30 AM AMBULATORY - MEDICINE [place] [facility] Feb 04, 2024 01:30 PM [facility] [facility] Feb 04, 2024 02:30 PM [facility] [place] [facility] Feb 11, 2024 02:30 PM [facility] [place] [facility] Feb 12, 2024 12:30 PM AMBULATORY - NONE [facility] Feb 12, 2024 01:30 PM AM[facility]ORY [facility] [place] [place] [facility] Feb 12, 2024 03:00 PM AMBULATORY - [place] [facility] Feb 19, 2024 02:15 PM [facility] [place] [facility] Feb 26, 2024 10:00 AM AMBULATORY - NONE [facility] [facility] Mar 29, 2024 01:00 PM AMBULATORY - SURGERY [facility] Mar 29, 2024 02:00 PM AMBULATORY - SURGERY [facility] Mar 30, 2024 08:30 AM AMBULATORY - REHAB MEDIC[facility] Apr 01, 2024 10:00 AM AMBULATORY - NONE [facility] Apr 12, 2024 10:15 AM AMBULATORY - SURGERY [place] [facility] Apr 13, 2024 01:15 PM [facility] [place] [facility] Apr 13, 2024 01:30 PM [facility] Apr 13, 2024 02:00 PM AMBULATORY - MEDICINE [facility] Active, Pending, and Scheduled Orders This section includes a listing of several types of active, pending, and scheduled orders, including clinic medications orders, diagnostic test orders, procedure orders and consult orders; where the start date of the order is 45 days before the date of the Encounter or 45 days after the date of theEncounter. The data comes from all [place] treatment facilities. Test Date/Time Test Type Test Details Facility Name Jan 06, 2024 12:00 AM Laboratory - Chemleanne posadas Order BNP PLASMA SP ONCE [facility] Lab Results: +/- 30 days [...] Range Comment Feb 04, 2024 01:40 PM [facility] BNP Specimen Type: PLASMA No comment entered. Ordering Provider: JACOB VIRGEN Report Released Date/Time: Aug 13, 2023 11:38 AM Reporting Lab: [facility] [phone] Performing Lab: [facility] [phone] BNP 23 pg/mL <99 Feb 04, 2024 01:40 PM [facility] BASIC METABOLIC PANEL+MG Specimen Type: PLASMA No comment entered. Ordering Provider: JACOB VIRGEN Report Released Date/Time: Aug 13, 2023 11:38 AM Reporting Lab: [facility] [phone] Performing Lab: [facility] [address] CREATININE 1.2 mg/dL 0.7-1.2 UREA NITROGEN 18 mg/dL 8-26 GLUCOSE 102 mg/dL H 70-100 SODIUM 140 mmol/L 136-145 POTASSIUM 4.1 mmol/L 3.5-5.1 CHLORIDE 102 mmol/L 98-107 CO2 27 mmol/L 22-29 CALCIUM 10.0 mg/dL 8.4-10.2 MAGNESIUM 2.3 mg/dL 1.6-2.6 ANION GAP 11 mmol/L 5-15 .CREAT EGFR(CKD-EPI) 63 >60 Jan 06, 2024 03:40 PM [facility] COVID-19 DIAGNOSTIC PANEL (BIOFIRE) Specimen Type: NASOPHARYNGEAL Comment: Biofire Torch (538) Ordering Provider: ROXANNE BUCKLEY Report Released Date/Time: Jan 06, 2024 03:22 PM Reporting Lab: [facility] [address] Performing Lab: [facility] [phone] C PNEUMONIAE PCR NOT DETECTED NOT DETECTED [...] NOT DETECTED Jan 06, 2024 03:22 PM [facility] POC CREATININE Specimen Type: BLOOD No comment entered. Ordering Provider: ALLISON PARRA Report Released Date/Time: Jan 06, 2024 03:24 PM Reporting Lab: [facility] [phone] Performing Lab: [facility] [address] POC CREATININE 1.5 mg/dL 0.6-1.3 Jan 06, 2024 03:19 PM [facility] POC ABG/LACTATE Specimen Type: VENOUS BLOOD No comment entered. Ordering Provider: ALLISON PARRA Report Released Date/Time: Jan 06, 2024 03:24 PM Reporting Lab: [facility] [address] Performing Lab: [facility] [address] POC PH 7.402 7.31-7.41 POC PCO2 50.1 mm[Hg] 41-51 POC PO2 24 mm[Hg] POC TCO2 33 mmol/L 24-29 POC HCO3 31.2 mmol/L 23-28 POC BE ECT 6 mmol/L -2-3 POC SO2 41 POC LACTATE <1.6 mmol/L 0.90-1.70 Jan 06, 2024 03:14 PM [facility] EXTRA BLUE TUBE Specimen Type: PLASMA No comment entered. Ordering Provider: ROXANNE BUCKLEY Report Released Date/Time: Jan 06, 2024 03:36 PM Reporting Lab: [facility] [address] Performing Lab: [facility] [address] EXTRA BLUE TUBE RECEIVED Jan 06, 2024 03:14 PM [facility] BNP Specimen Type: PLASMA No comment entered. Ordering Provider: ROXANNE BUCKLEY Report Released Date/Time: Jan 06, 2024 03:22 PM Reporting Lab: [facility] [address] Performing Lab: [facility] [address] BNP 18 pg/mL <99 Jan 06, 2024 03:14 PM [facility] TROPONIN I, HS Specimen Type: PLASMA No comment entered. Ordering Provider: ROXANNE BUCKLEY Report Released Date/Time: Jan 06, 2024 03:22 PM Reporting Lab: [facility] [address] Performing Lab: [facility] [address] TROPONIN I, HS <3 <35 Jan 06, 2024 03:14 PM [facility] CBC & DIFF Specimen Type: BLOOD Comment: Automated Differential Performed Ordering Provider: ROXANNE BUCKLEY Report Released Date/Time: Jan 06, 2024 03:22 PM Reporting Lab: [facility] [address] Performing Lab: [facility] [address] WBC 11.27 10*3/uL H 4.0-11.0 RBC 4.81 [...] GRAN 0.04 10*3/uL 0-0.1 Jan 06, 2024 03:14 PM [facility] EXTRA GOLD GEL TUBE Specimen Type: SERUM No comment entered. Ordering Provider: ROXANNE BUCKLEY Report Released Date/Time: Jan 06, 2024 03:36 PM Reporting Lab: [facility] [address] Performing Lab: [facility] [address] EXTRA GOLD GEL TUBE RECEIVED Jan 06, 2024 11:57 AM [facility] BASIC METABOLIC PANEL+MG Specimen Type: PLASMA No comment entered. Ordering Provider: HITESH HOLGUIN Report Released Date/Time: Oct 07, 2023 02:47 PM Reporting Lab: [facility] [address] Performing Lab: [facility] [address] CREATININE 1.0 mg/dL 0.7-1.2 UREA NITROGEN 16 mg/dL 8-26 GLUCOSE 112 mg/dL H 70-100 SODIUM 137 mmol/L 136-145 POTASSIUM 4.1 mmol/L 3.5-5.1 CHLORIDE 101 mmol/L 98-107 CO2 26 mmol/L 22-29 CALCIUM 9.6 mg/dL 8.4-10.2 MAGNESIUM 2.4 mg/dL 1.6-2.6 ANION GAP 10 mmol/L 5-15 .CREAT EGFR(CKD-EPI) 79 >60 Dec 30, 2023 11:00 AM [facility] .OCCULT BLOOD(FIT) Specimen Type: FECES No comment entered. Ordering Provider: SRUTHI ANDUJAR Report Released Date/Time: Dec 30, 2023 11:00 AM Reporting Lab: [facility] [phone] Performing Lab: [facility] [address] [place] [id number] .OCCULT BLOOD(FIT) POSITIVE HH Vital Signs: All taken on the encounter date This section contains inpatient and outpatient Vital Signs collected on the date of the Encounter. Date/Time Temperature Pulse Blood Pressure Respiratory Rate SP02 Pain Height Weight Body Mass Index Source Jan 06, 2024 02:47 PM 97.4 100 123/79 16 91 0 [facility] Jan 06, 2024 01:35 PM 93 115/75 16 92 0 [facility] Social History: Smoking Status (Most current) and Tobacco Use (All prior to encounter date) This section includes the most current, and the historical, smoking and tobacco- related health factors from the [facility] where the Encounter took place. Current Smoking Status This section includes the most current smoking, or tobacco-related health factor, from the [place] facility where the Encounter took place. Date/Time Current Smoking Status Comment Facil ity Dec 19, 2020 12:07 PM VA-TOBACCO FORMER USER [facility] Tobacco Use History This section includes a history of the smoking, or tobacco-related health factors, that were collected on or before the date of the Encounter. The data comes from the [place] facility where the Encounter took place. Date/Time Smoking Status/Tobacco Use Comment F acility Dec 19, 2020 12:07 PM VA-TOBACCO QUIT 5 TO < 15 YRS [facility] Aug 02, 2015 09:49 AM CURRENT TOBACCO USER [facility] Jun 06, 2014 08:51 AM CURRENT TOBACCO USER [facility] May 04, 2013 09:29 AM CURRENT TOBACCO USER [facility] Apr 24, 2012 07:40 AM CURRENT TOBACCO USER [facility] Advance Directives: All historical and [...] comes from all [place] treatment facilities. 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 Did the ordering provider speak with a engineering consultant regarding this imaging exam? 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 Responsible provider name and phone number to notify for critical findings if other than user placing the order and pager listed below: User placing orders pager: [phone] LAST CREATININE 1.2 (10/07/23) Allergies: Patient has answered NKA Report Status: Verified Date Reported: JAN 09, 2024 Date Verified: JAN 09, 2024 Cardiac Rehab Nurse E-Sig:/ES/OSBALDO RODGERS MD Report: MRI BRAINBRAINSTEM W [...] Primary Interpreting Staff: OSBALDO RODGERS MD, RADIOLOGIST (Cardiac Rehab Nurse) /[facility] OSBALDO RODGERS [facility] Jan 06, 2024 03:24 PM CHEST 1 VIEW: GILDA CARRILLO [id number] -1950 M Exm Date: JAN 06, 2024@15:24 Req Phys: ANNI BUCKLEY Pat Loc: [facility] EMERGENCY DEPT WALK-IN (Re Img Loc: MAIN X-RAY Service: [place] [address] (Case [id number] COMPLETE) CHEST 1 VIEW (RAD Detailed) CPT:82616 Proc Modifiers : PORTABLE EXAM Reason for [...] 06, 2024 Date Verified: JAN 06, 2024 Cardiac Rehab Nurse E-Sig:/ES/BHARAT PARKER MD Report: EXAMINATION: CHEST 1 [...] Primary Interpreting Staff: BHARAT PARKER MD, RADIOLOGIST (Cardiac Rehab Nurse) /RTS BHARAT PARKER [facility]
--- OUTSIDE RECORDS SUMMARY | 2024-03-25 10:38 | XMS_ITS | Encounter Summary ---
Author Name [facility] Organization [facility] Address [address] [place] [address] Care Team Providers Care Heavy Equipment Field Mechanic Name Role Phone GELACIO MICHEL Primary Care [...] PART A Jul 21, 2014 PART A [id number] Miguelito CARRILLO PATIENT Selected Encounter This section includes the information on record at MD for the Encounter. Date/Time Encounter Type Encounter Description Reason Pro vider Source Jan 06, 2024 02:44 PM Outpatient Encounter EMERGENCY DEPT IHE Encounter Template Text not used by MD Plan of Treatment: Future Appointments (+ 6 months) and Future Tests (+/- 45 days) The Plan of Treatment section includes future care activities for the patient from all MD treatmentfacilities. This section includes future appointments and future orders which are active, pending or scheduled. Future Appointments This section includes appointments that were scheduled to occur 6 months from the date of the Encounter, up to a maximum of 20 appointments. The data comes from all MD treatment facilities. Appointment Date/Time Appointment Type Appointme nt Facility Name Jan 08, 2024 07:45 PM AM[facility]ATORY - NONE [place] [facility] Jan 12, 2024 01:15 PM [place]ORY [place] [facility] Jan 13, 2024 03:00 PM [facility]ATORY - NONE [facility] Jan 21, 2024 11:30 AM [facility] Feb 04, 2024 01:30 PM [facility] Feb 04, 2024 02:30 [facility] Feb 11, 2024 02:30 PM [facility] Feb 12, 2024 12:30 PM [facility] Feb 12, 2024 01:30 PM [facility] [place] [facility] Feb 12, 2024 03:00 PM [facility] [place] [facility] Feb 19, 2024 02:15 PM [facility] Feb 26, 2024 10:00 AM AMBULATORY - NONE [facility] Mar 29, 2024 01:00 PM [facility] Mar 29, 2024 02:00 PM AMBULATORY - SURGERY [facility] Mar 30, 2024 08:30 AM AMBULATORY - REHAB MEDICIN [facility] Apr 01, 2024 10:00 AM AMBULATORY - NONE [facility] Apr 12, 2024 10:15 AM AMBULATORY - SURGERY [facility] Apr 13, 2024 01:15 PM [facility] Apr 13, 2024 01:30 PM [facility] Apr 13, 2024 02:00 PM AMBULATORY - MEDICINE [facility] Active, Pending, and [...] of theEncounter. The data comes from all MD treatment facilities. Test Date/Time Test Type Test Details Facility Name Jan 06, 2024 12:00 AM Laboratory - Chemi stry Order BNP PLASMA SP ONCE [facility] Lab Results: +/- 30 days of the encounter This section includes the Chemistry and Hematology Lab Results on record with MD for the patient. Radiology Reports and Pathology Reports are provided separately, in subsequent sections. Lab Results This section contains the Chemistry/Hematology Results that were resulted 30 days before or 30 daysafter the date of the Encounter. Date/Time Source Result Type Result - Unit Interpretation Reference Range Comment Feb 04, 2024 01:40 PM [facility] BNP Specimen Type: PLASMA No comment entered. Ordering Provider: JACOB VIRGEN Report Released Date/Time: Aug 13, 2023 11:38 AM Reporting Lab: [facility] [phone] Performing Lab: [facility] [phone] BNP 23 pg/mL <99 Feb 04, 2024 01:40 PM [facility] BASIC METABOLIC PANEL+MG Specimen Type: PLASMA No comment entered. Ordering Provider: JACOB VIRGEN Report Released Date/Time: Aug 13, 2023 11:38 AM Reporting Lab: [facility] [phone] Performing Lab: [facility] [address] CREATININE 1.2 mg/dL 0.7-1.2 UREA NITROGEN 18 mg/dL 8-26 GLUCOSE 102 mg/dL H 70-100 SODIUM 140 mmol/L 136-145 POTASSIUM 4.1 mmol/L 3.5-5.1 CHLORIDE 102 mmol/L 98-107 CO2 27 mmol/L 22-29 CALCIUM 10.0 mg/dL 8.4-10.2 MAGNESIUM 2.3 mg/dL 1.6-2.6 ANION GAP 11 mmol/L 5-15 .CREAT EGFR(CKD-EPI) 63 >60 Jan 06, 2024 03:40 PM [facility] COVID-19 DIAGNOSTIC PANEL (BIOFIRE) Specimen Type: NASOPHARYNGEAL Comment: Biofire Torch (248) Ordering Provider: ROXANNE BUCKLEY Report Released Date/Time: Jan 06, 2024 03:22 PM Reporting Lab: [facility] [phone] Performing Lab: [facility] [phone] C PNEUMONIAE PCR NOT DETECTED NOT DETECTED [...] NOT DETECTED Jan 06, 2024 03:22 PM [facility] POC CREATININE Specimen Type: BLOOD No comment entered. Ordering Provider: ALLISON PARRA Report Released Date/Time: Jan 06, 2024 03:24 PM Reporting Lab: [facility] [phone] Performing Lab: [facility] [phone] POC CREATININE 1.5 mg/dL 0.6-1.3 Jan 06, 2024 03:19 PM [facility] POC ABG/LACTATE Specimen Type: VENOUS BLOOD No comment entered. Ordering Provider: ALLISON PARRA Report Released Date/Time: Jan 06, 2024 03:24 PM Reporting Lab: [facility] [phone] Performing Lab: [facility] [address] POC PH 7.402 7.31-7.41 POC PCO2 50.1 mm[Hg] 41-51 POC PO2 24 mm[Hg] POC TCO2 33 mmol/L 24-29 POC HCO3 31.2 mmol/L 23-28 POC BE ECT 6 mmol/L -2-3 POC SO2 41 POC LACTATE <1.6 mmol/L 0.90-1.70 Jan 06, 2024 03:14 PM [facility] EXTRA BLUE TUBE Specimen Type: PLASMA No comment entered. Ordering Provider: ROXANNE BUCKLEY Report Released Date/Time: Jan 06, 2024 03:36 PM Reporting Lab: [facility] [phone] Performing Lab: [facility] [phone] EXTRA BLUE TUBE RECEIVED Jan 06, 2024 03:14 PM [facility] BNP Specimen Type: PLASMA No comment entered. Ordering Provider: ROXANNE BUCKLEY Report Released Date/Time: Jan 06, 2024 03:22 PM Reporting Lab: [facility] [phone] Performing Lab: [facility] [address] BNP 18 pg/mL <99 Jan 06, 2024 03:14 PM [facility] TROPONIN I, HS Specimen Type: PLASMA No comment entered. Ordering Provider: ROXANNE BUCKLEY Report Released Date/Time: Jan 06, 2024 03:22 PM Reporting Lab: [facility] [phone] Performing Lab: [facility] [phone] TROPONIN I, HS <3 <35 Jan 06, 2024 03:14 PM [facility] EXTRA GOLD GEL TUBE Specimen Type: SERUM No comment entered. Ordering Provider: ROXANNE BUCKLEY Report Released Date/Time: Jan 06, 2024 03:36 PM Reporting Lab: [facility] [phone] Performing Lab: [facility] [phone] EXTRA GOLD GEL TUBE RECEIVED Jan 06, 2024 03:14 PM [facility] CBC & DIFF Specimen Type: BLOOD Comment: Automated Differential Performed Ordering Provider: ROXANNE BUCKLEY Report Released Date/Time: Jan 06, 2024 03:22 PM Reporting Lab: [facility] [phone] Performing Lab: [facility] [address] WBC 11.27 10*3/uL H 4.0-11.0 RBC 4.81 [...] 10*3/uL 0-0.1 Jan 06, 2024 11:57 AM [facility] BASIC METABOLIC PANEL+MG Specimen Type: PLASMA No comment entered. Ordering Provider: HITESH HOLGUIN Report Released Date/Time: Oct 07, 2023 02:47 PM Reporting Lab: [facility] [phone] Performing Lab: [facility] [phone] CREATININE 1.0 mg/dL 0.7-1.2 UREA NITROGEN 16 mg/dL 8-26 GLUCOSE 112 mg/dL H 70-100 SODIUM 137 mmol/L 136-145 POTASSIUM 4.1 mmol/L 3.5-5.1 CHLORIDE 101 mmol/L 98-107 CO2 26 mmol/L 22-29 CALCIUM 9.6 mg/dL 8.4-10.2 MAGNESIUM 2.4 mg/dL 1.6-2.6 ANION GAP 10 mmol/L 5-15 .CREAT EGFR(CKD-EPI) 79 >60 Dec 30, 2023 11:00 AM [facility] .OCCULT BLOOD(FIT) Specimen Type: FECES No comment entered. Ordering Provider: SRUTHI ANDUJAR Report Released Date/Time: Dec 30, 2023 11:00 AM Reporting Lab: [facility] [phone] Performing Lab: [place] [id number] [facility] [address] .OCCULT BLOOD(FIT) POSITIVE Vital Signs: All taken on the encounter date This section contains inpatient and outpatient Vital Signs collected on the date of the Encounter. Date/Time Temperature Pulse Blood Pressure Respiratory Rate SP02 Pain Height Weight Body Mass Index Source Jan 06, 2024 02:47 PM 97.4 100 123/79 16 91 0 [place] [facility] Jan 06, 2024 01:35 PM 93 115/75 16 92 0 [place] [facility] [facility] Social History: Smoking Status (Most current) and Tobacco Use (All prior to encounter date) This section includes the most current, and the historical, smoking and tobacco- related health factors from the MD facility where the Encounter took place. Current Smoking Status This section includes the most current smoking, or tobacco-related health factor, from the MD facility where the Encounter took place. Date/Time Current Smoking Status Comment Facil ity Dec 19, 2020 12:07 PM MD-TOBACCO QUIT 5 TO < 15 YRS [facility] Tobacco Use History This section includes a history of the smoking, or tobacco-related health factors, that were collected on or before the date of the Encounter. The data comes from the MD facility where the Encounter took place. Date/Time Smoking Status/Tobacco Use Comment F acility Dec 19, 2020 12:07 PM MD-TOBACCO QUIT 5 TO < 15 YRS [facility] [...] ALL of a patient's completed or amended MD Advance and Rescinded Directives. The entries below indicate that a directive exists for the patient, but an actual copy is not included with this document. The data comes from all [facility]. Date Advance Directives Provider Source Jan 02, 2023 STATE-AUTHORIZED PORTABLE ORDERS [facility] Radiology Reports: +/- 30 days of [...] the Encounter. The data comes from all MD treatment facilities. 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 Did the ordering provider speak with a oracle ebs consultant regarding this imaging exam? 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 Responsible provider name and phone number to notify for critical findings if other than user placing the order and pager listed below: User placing orders pager: [phone] LAST CREATININE 1.2 (10/07/23) Allergies: Patient has answered NKA Report Status: Verified Date Reported: JAN 09, 2024 Date Verified: JAN 09, 2024 Director Of Intercollegiate Athletics E-Sig:/ES/OSBALDO RODGERS MD Report: MRI BRAINBRAINSTEM W [...] Primary Interpreting Staff: OSBALDO RODGERS MD, RADIOLOGIST (Director Of Intercollegiate Athletics) /[facility] OSBALDO RODGERS [facility] Jan 06, 2024 03:24 PM CHEST 1 VIEW: GILDA CARRILLO RAY [id number] -[id number] M Ex Date: JAN 06, 2024@15:24 Req Phys: ANNI BUCKLEY Loc: [facility] EMERGENCY DEPT WALK-IN (Re Img Loc: MAIN X-RAY Service: [place] [address] (Case [id number] COMPLETE) CHEST 1 VIEW (RAD Detailed) CPT:05601 Proc Modifiers : PORTABLE EXAM Reason for [...] 06, 2024 Date Verified: JAN 06, 2024 Director Of Intercollegiate Athletics E-Sig:/MATEO/BHARAT PARKER MD Report: EXAMINATION: CHEST 1 VIEW [...] Primary Interpreting Staff: BHARAT PARKER MD, RADIOLOGIST (Director Of Intercollegiate Athletics) /RTS BHARAT PARKER [facility] Encounter Notes: All associated encounter notes This section contains the clinical notes associated to the Encounter. Date/Time Encounter Note(s) Provider Source Jan 06, 2024 02:44 PM PHYSICIAN EMERGENC Y DEPT NOTE: LOCAL TITLE: EMERGENCY DEPT NOTE STANDARD TITLE: PHYSICIAN EMERGENCY DEPT NOTE DATE OF NOTE: JAN 06, 2024@14:44 ENTRY DATE: JAN 06, 2024@14:44:18 AUTHOR: NOAM ESPINOZA EXP COSIGNER: URGENCY: STATUS: COMPLETED HITESH HOLGUIN CNP, MANDY Electrophysiology Nurse Practitioner contacted ER attending with report of patient with inspiratory and expiratory wheezes in need of a neb, posssibly CXR, and possibly admission. As patientis desccribed at vitally stable for elevator transfer, recommended patiet be sent to the the ER with a nurse. Patient is on his way to the ER on private scooter. /mateo/ NOAM ESPINOZA MD STAFF PHYSICIAN Signed: 01/06/2024 14:46 Receipt Acknowledged By: 01/06/2024 16:28 /mateo/ HITESH HOLGUIN CNP, HAND WOODWORKING SANDER Electrophysiology Nurse Practitioner 01/06/2024 14:48 /es/ GELACIO MICHEL DNP,MANDY ESPINOZA,NOAM Contreras [facility]"
--- OUTSIDE RECORDS SUMMARY | 2024-03-25 10:38 | XMS_ITS | Encounter Summary ---
Author Name [facility] [place] Organization [facility] [place] Address [address] [place] [address] Care Team Providers Care Delivery Table Feeder Name Role Phone GELACIO MICHEL Primary Care [...] PART A Jul 21, 2014 PART A [phone] Miguelito CARRILLO PATIENT Selected Encounter This section includes the information on record at [place] for the Encounter. Date/Time Encounter Type Encounter Description Reason Provider Source Jan 06, 2024 02:45 PM Outpatient Encounter EMERGENCY DEPT ANNI BUCKLEY Encounter Template Text not used by [place] [...] 07:45 PM AMBULATORY - NONE [place] [facility] Jan 12, 2024 01:15 PM [place] - [place] [facility] Jan 13, 2024 03:00 PM [facility] - NONE [facility] Jan 21, 2024 11:30 AM [facility] - [facility]IC[facility] Feb 04, 2024 01:30 PM [place] [facility] Feb 04, 2024 02:30 PM [facility] [facility] Feb 11, 2024 02:30 PM [facility] [facility] Feb 12, 2024 12:30 [facility] Feb 12, 2024 01:30 PM [facility] - SURG[facility] Feb 12, 2024 03:00 PM AMBULATORY - SURGERY [facility] Feb 19, 2024 02:15 PM [facility] Feb 26, 2024 10:00 AM AMBULATORY - NONE [facility] Mar 29, 2024 01:00 PM AMBULATORY - SURGERY [facility] Mar 29, 2024 02:00 PM AMBULATORY - SURGERY [facility] Mar 30, 2024 08:30 AM AMBULATORY - REHAB MEDICIN [facility] Apr 01, 2024 10:00 AM AMBULATORY - NONE [facility] Apr 12, 2024 10:15 AM AMBULATORY - SURGERY [facility] Apr 13, 2024 01:15 PM [facility] Apr 13, 2024 01:30 PM AMBULATORY - MEDICINE [facility] Apr 13, 2024 02:00 PM AMBULATORY - MEDICINE [facility] Active, Pending, and Scheduled Orders This section includes a listing of several types of active, pending, and scheduled orders, including clinic medications orders, diagnostic test orders, procedure orders and consult orders; where the start date of the order is 45 days before the date of the Encounter or 45 days after the date of theEncounter. The data comes from all [facility]. Test Date/Time Test Type Test Details Facility Name Jan 06, 2024 12:00 AM Laboratory - Chemi stry Order BNP PLASMA SP ONCE [facility] Lab Results: +/- 30 days of [...] Range Comment Feb 04, 2024 01:[address] [facility] BNP Specimen Type: PLASMA No comment entered. Ordering Provider: JACOB VIRGEN Report Released Date/Time: Aug 13, 2023 11:38 AM Reporting Lab: [facility] [phone] Performing Lab: [facility] [phone] BNP 23 pg/mL <99 Feb 04, 2024 01:[address] [facility] BASIC METABOLIC PANEL+MG Specimen Type: PLASMA No comment entered. Ordering Provider: JACOB VIRGEN Report Released Date/Time: Aug 13, 2023 11:38 AM Reporting Lab: [facility] [phone] Performing Lab: [facility] [phone] CREATININE 1.2 mg/dL 0.7-1.2 UREA NITROGEN 18 mg/dL 8-26 GLUCOSE 102 mg/dL H 70-100 SODIUM 140 mmol/L 136-145 POTASSIUM 4.1 mmol/L 3.5-5.1 CHLORIDE 102 mmol/L 98-107 CO2 27 mmol/L 22-29 CALCIUM 10.0 mg/dL 8.4-10.2 MAGNESIUM 2.3 mg/dL 1.6-2.6 ANION GAP 11 mmol/L 5-15 .CREAT EGFR(CKD-EPI) 63 >60 Jan 06, 2024 03:[address] [facility] COVID-19 DIAGNOSTIC PANEL (BIOFIRE) Specimen Type: NASOPHARYNGEAL Comment: Biofire Torch (618) Ordering Provider: ROXANNE BUCKLEY Report Released Date/Time: Jan 06, 2024 03:22 PM Reporting Lab: [facility] [phone] Performing Lab: [facility] [phone] C PNEUMONIAE PCR NOT DETECTED NOT DETECTED [...] DETECTED Jan 06, 2024 03:[address] [facility] POC CREATININE Specimen Type: BLOOD No comment entered. Ordering Provider: ALLISON PARRA Report Released Date/Time: Jan 06, 2024 03:24 PM Reporting Lab: [facility] [phone] Performing Lab: [facility] [phone] POC CREATININE 1.5 mg/dL 0.6-1.3 Jan 06, 2024 03:[address] [facility] POC ABG/LACTATE Specimen Type: VENOUS BLOOD No comment entered. Ordering Provider: ALLISON PARRA Report Released Date/Time: Jan 06, 2024 03:24 PM Reporting Lab: [facility] [phone] Performing Lab: [facility] [address] POC PH 7.402 7.31-7.41 POC PCO2 50.1 mm[Hg] 41-51 POC PO2 24 mm[Hg] POC TCO2 33 mmol/L 24-29 POC HCO3 31.2 mmol/L 23-28 POC BE ECT 6 mmol/L -2-3 POC SO2 41 POC LACTATE <1.6 mmol/L 0.90-1.70 Jan 06, 2024 03:[address] [facility] EXTRA BLUE TUBE Specimen Type: PLASMA No comment entered. Ordering Provider: ROXANNE BUCKLEY Report Released Date/Time: Jan 06, 2024 03:36 PM Reporting Lab: [facility] [phone] Performing Lab: [facility] [address] EXTRA BLUE TUBE RECEIVED Jan 06, 2024 03:[address] [facility] BNP Specimen Type: PLASMA No comment entered. Ordering Provider: ROXANNE BUCKLEY Report Released Date/Time: Jan 06, 2024 03:22 PM Reporting Lab: [facility] [phone] Performing Lab: [facility] [address] BNP 18 pg/mL <99 Jan 06, 2024 03:[address] [facility] TROPONIN I, HS Specimen Type: PLASMA No comment entered. Ordering Provider: ROXANNE BUCKLEY Report Released Date/Time: Jan 06, 2024 03:22 PM Reporting Lab: [facility] [phone] Performing Lab: [facility] [phone] TROPONIN I, HS <3 <35 Jan 06, 2024 03:[address] [facility] EXTRA GOLD GEL TUBE Specimen Type: SERUM No comment entered. Ordering Provider: ROXANNE BUCKLEY Report Released Date/Time: Jan 06, 2024 03:36 PM Reporting Lab: [facility] [address] Performing Lab: [facility] [phone] EXTRA GOLD GEL TUBE RECEIVED Jan 06, 2024 03:[address] [facility] CBC & DIFF Specimen Type: BLOOD Comment: Automated Differential Performed Ordering Provider: ROXANNE BUCKLEY Report Released Date/Time: Jan 06, 2024 03:22 PM Reporting Lab: [facility] [phone] Performing Lab: [facility] [address] WBC 11.27 10*3/uL H 4.0-11.0 RBC 4.81 [...] 0-0.1 Jan 06, 2024 11:[address] [facility] BASIC METABOLIC PANEL+MG Specimen Type: PLASMA No comment entered. Ordering Provider: HITESH HOLGUIN Report Released Date/Time: Oct 07, 2023 02:47 PM Reporting Lab: [facility] [phone] Performing Lab: [facility] [phone] CREATININE 1.0 mg/dL 0.7-1.2 UREA NITROGEN 16 mg/dL 8-26 GLUCOSE 112 mg/dL H 70-100 SODIUM 137 mmol/L 136-145 POTASSIUM 4.1 mmol/L 3.5-5.1 CHLORIDE 101 mmol/L 98-107 CO2 26 mmol/L 22-29 CALCIUM 9.6 mg/dL 8.4-10.2 MAGNESIUM 2.4 mg/dL 1.6-2.6 ANION GAP 10 mmol/L 5-15 .CREAT EGFR(CKD-EPI) 79 >60 Dec 30, 2023 11:[address] [facility] .OCCULT BLOOD(FIT) Specimen Type: FECES No comment entered. Ordering Provider: SRUTHI ANDUJAR Report Released Date/Time: Dec 30, 2023 11:00 AM Reporting Lab: [facility] [phone] Performing Lab: [facility] [address] [facility] [address] .OCCULT BLOOD(FIT) POSITIVE Vital Signs: All taken on the encounter date This section contains inpatient and outpatient Vital Signs collected on the date of the Encounter. Date/Time Temperature Pulse Blood Pressure Respiratory Rate SP02 Pain Height Weight Body Mass Index Source Jan 06, 2024 02:47 PM 97.4 100 123/79 16 91 0 [place] [facility] Jan 06, 2024 01:35 PM 93 115/75 16 92 0 [place] [facility] Social History: Smoking Status (Most current) [...] 2020 12:07 PM [place]-TOBACCO FORMER USER [facility] Tobacco Use History This section includes a history of the smoking, or tobacco-related health factors, that were collected on or before the date of the Encounter. The data comes from the [place] facility where the Encounter took place. Date/Time Smoking Status/Tobacco Use Comment F acility Dec 19, 2020 12:07 PM [place]-TOBACCO QUIT 5 TO < [address] [facility] Aug 02, 2015 09:49 AM [address]RENT TOBACCO USER [facility] Jun 06, 2014 08:51 AM CURRENT TOBACCO USER [facility] May 04, 2013 09:29 AM CURRENT TOBACCO USER [facility] Apr 24, 2012 07:40 AM CURRENT TOBACCO USER [facility] Advance Directives: All historical and current [...] 02, 2023 STATE-AUTHORIZED PORTABLE ORDERS [facility] Radiology Reports: +/- 30 days of [...] comes from all [place] treatment facilities. 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 Did the ordering provider speak with a risk management consultant regarding this imaging exam? 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 Jan 06, 2024 03:24 PM CHEST 1 VIEW: CARRILLOGILDA RAY [id number] -1950 M Ex Date: JAN 06, 2024@15:24 Req Phys: ANNI BUCKLEY Loc: [facility] EMERGENCY DEPT WALK-IN (Re Img Loc: MAIN X-RAY Service: [place] [address] (Case [id number] COMPLETE) CHEST 1 VIEW (RAD Detailed) CPT:01998 Proc Modifiers : PORTABLE EXAM Reason for Study: Shortness of breath, cough Clinical History: [place] IS under investigation (PUI) for COVID-19 or [...] 06, 2024 Date Verified: JAN 06, 2024 [employer] E-Sig:/ES/BHARAT PARKER MD Report: EXAMINATION: CHEST 1 [...] Primary Interpreting Staff: BHARAT PARKER MD, RADIOLOGIST ([employer]) /BHARAT [facility]SAI [facility]
--- OUTSIDE RECORDS SUMMARY | 2024-03-25 10:38 | XMS_ITS | Encounter Summary ---
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 Date/Time Encounter Type Encounter Description Reason Provider Source Jan 06, 2024 02:44 PM Outpatient Encounter EMERGENCY DEPT LEROY ULLOA Encounter Template Text not used by [place] Plan of Treatment: Future Appointments (+ 6 months) and Future Tests (+/- 45 days) The Plan of Treatment section includes future care activities for the patient from all [place] treatmentfacilities. This section includes future appointments and future orders which are active, pending or scheduled. Future Appointments This section includes appointments that were scheduled to occur 6 months from the date of the Encounter, up to a maximum of 20 appointments. The data comes from all [place] treatment facilities. Appointment Date/Time Appointment Type Appointme nt Facility Name Jan 08, 2024 07:45 PM AM[place]ULATORY - NONE [place] [facility] Jan 12, 2024 01:15 PM AMBUL[place]ORY [place] [facility] Jan 13, 2024 03:00 PM [facility]ORY - NONE [facility] Jan 21, 2024 11:30 AM [facility]ATORY - [facility]IC[facility] Feb 04, 2024 01:30 PM [facility] [place] [place] [facility] Feb 04, 2024 02:30 PM [facility] Feb 11, 2024 02:30 PM [facility] Feb 12, 2024 12:30 [facility] Feb 12, 2024 01:30 PM [facility] Feb 12, 2024 03:00 PM AMBULATORY - SURGERY [facility] Feb 19, 2024 02:15 PM [facility] Feb 26, 2024 10:00 AM AMBULATORY - NONE [facility] Mar 29, 2024 01:00 PM AMBULATORY - SURGERY [facility] Mar 29, 2024 02:00 PM AMBULATORY - SURGERY [facility] Mar 30, 2024 08:30 AM AMBULATORY - REHAB MEDICIN [facility] Apr 01, 2024 10:00 AM AMBULATORY - NONE [facility] Apr 12, 2024 10:15 AM AMBULATORY - SURGERY [facility] Apr 13, 2024 01:15 PM [facility] Apr 13, 2024 01:30 PM AMBULATORY - MEDICINE [facility] Apr 13, 2024 02:00 PM AMBULATORY - MEDICINE [facility] Active, Pending, and Scheduled Orders This section includes a listing of several types of active, pending, and scheduled orders, including clinic medications orders, diagnostic test orders, procedure orders and consult orders; where the start date of the order is 45 days before the date of the Encounter or 45 days after the date of theEncounter. The data comes from all [facility]. Test Date/Time Test Type Test Details Facility Name Jan 06, 2024 12:00 AM Laboratory - Chemi stry Order BNP PLASMA SP ONCE [facility] Lab Results: +/- 30 days of [...] Range Comment Feb 04, 2024 01:40 PM [facility] BNP Specimen Type: PLASMA No comment entered. Ordering Provider: JACOB VIRGEN Report Released Date/Time: Aug 13, 2023 11:38 AM Reporting Lab: [facility] [id number] Performing Lab: [facility] [id number] BNP 23 pg/mL <99 Feb 04, 2024 01:40 PM [facility] BASIC METABOLIC PANEL+MG Specimen Type: PLASMA No comment entered. Ordering Provider: JACOB VIRGEN Report Released Date/Time: Aug 13, 2023 11:38 AM Reporting Lab: [facility] [address] Performing Lab: [facility] [address] CREATININE 1.2 mg/dL 0.7-1.2 UREA NITROGEN 18 mg/dL 8-26 GLUCOSE 102 mg/dL H 70-100 SODIUM 140 mmol/L 136-145 POTASSIUM 4.1 mmol/L 3.5-5.1 CHLORIDE 102 mmol/L 98-107 CO2 27 mmol/L 22-29 CALCIUM 10.0 mg/dL 8.4-10.2 MAGNESIUM 2.3 mg/dL 1.6-2.6 ANION GAP 11 mmol/L 5-15 .CREAT EGFR(CKD-EPI) 63 >60 Jan 06, 2024 03:40 PM [facility] COVID-19 DIAGNOSTIC PANEL (BIOFIRE) Specimen Type: NASOPHARYNGEAL Comment: Biofire Torch (618) Ordering Provider: ROXANNE ULLOA Report Released Date/Time: Jan 06, 2024 03:22 PM Reporting Lab: [facility] [address] Performing Lab: [facility] [address] C PNEUMONIAE PCR NOT DETECTED NOT DETECTED [...] NOT DETECTED Jan 06, 2024 03:22 PM [facility] POC CREATININE Specimen Type: BLOOD No comment entered. Ordering Provider: ALLISON PARRA Report Released Date/Time: Jan 06, 2024 03:24 PM Reporting Lab: [facility] [phone] Performing Lab: [facility] [address] POC CREATININE 1.5 mg/dL 0.6-1.3 Jan 06, 2024 03:19 PM [facility] POC ABG/LACTATE Specimen Type: VENOUS BLOOD No comment entered. Ordering Provider: ALLISON PARRA Report Released Date/Time: Jan 06, 2024 03:24 PM Reporting Lab: [facility] [address] Performing Lab: [facility] [address] POC PH 7.402 7.31-7.41 POC PCO2 50.1 mm[Hg] 41-51 POC PO2 24 mm[Hg] POC TCO2 33 mmol/L 24-29 POC HCO3 31.2 mmol/L 23-28 POC BE ECT 6 mmol/L -2-3 POC SO2 41 POC LACTATE <1.6 mmol/L 0.90-1.70 Jan 06, 2024 03:14 PM [facility] EXTRA BLUE TUBE Specimen Type: PLASMA No comment entered. Ordering Provider: ROXANNE ULLOA Report Released Date/Time: Jan 06, 2024 03:36 PM Reporting Lab: [facility] [address] Performing Lab: [facility] [address] EXTRA BLUE TUBE RECEIVED Jan 06, 2024 03:14 PM [facility] BNP Specimen Type: PLASMA No comment entered. Ordering Provider: ROXANNE ULLOA Report Released Date/Time: Jan 06, 2024 03:22 PM Reporting Lab: [facility] [address] Performing Lab: [facility] [address] BNP 18 pg/mL <99 Jan 06, 2024 03:14 PM [facility] TROPONIN I, HS Specimen Type: PLASMA No comment entered. Ordering Provider: ROXANNE ULLOA Report Released Date/Time: Jan 06, 2024 03:22 PM Reporting Lab: [facility] [address] Performing Lab: [facility] [address] TROPONIN I, HS <3 <35 Jan 06, 2024 03:14 PM [facility] EXTRA GOLD GEL TUBE Specimen Type: SERUM No comment entered. Ordering Provider: ROXANNE ULLOA Report Released Date/Time: Jan 06, 2024 03:36 PM Reporting Lab: [facility] [address] Performing Lab: [facility] [address] EXTRA GOLD GEL TUBE RECEIVED Jan 06, 2024 03:14 PM [facility] CBC & DIFF Specimen Type: BLOOD Comment: Automated Differential Performed Ordering Provider: ROXANNE ULLOA Report Released Date/Time: Jan 06, 2024 03:22 PM Reporting Lab: [facility] [address] Performing Lab: [facility] [address] WBC 11.27 10*3/uL H 4.0-11.0 RBC 4.81 [...] 10*3/uL 0-0.1 Jan 06, 2024 11:57 AM [facility] BASIC METABOLIC PANEL+MG Specimen Type: PLASMA No comment entered. Ordering Provider: HITESH HOLGUIN Report Released Date/Time: Oct 07, 2023 02:47 PM Reporting Lab: [facility] [address] Performing Lab: [facility] [address] CREATININE 1.0 mg/dL 0.7-1.2 UREA NITROGEN 16 mg/dL 8-26 GLUCOSE 112 mg/dL H 70-100 SODIUM 137 mmol/L 136-145 POTASSIUM 4.1 mmol/L 3.5-5.1 CHLORIDE 101 mmol/L 98-107 CO2 26 mmol/L 22-29 CALCIUM 9.6 mg/dL 8.4-10.2 MAGNESIUM 2.4 mg/dL 1.6-2.6 ANION GAP 10 mmol/L 5-15 .CREAT EGFR(CKD-EPI) 79 >60 Dec 30, 2023 11:00 AM [facility] .OCCULT BLOOD(FIT) Specimen Type: FECES No comment entered. Ordering Provider: SRUTHI ANDUJAR Report Released Date/Time: Dec 30, 2023 11:00 AM Reporting Lab: [facility] [address] Performing Lab: [facility] [address] [facility] [address] .OCCULT BLOOD(FIT) POSITIVE Vital Signs: All taken [...] PM 93 115/75 16 92 0 [place] [facility] Social History: Smoking Status (Most [...] 19, 2020 12:07 PM VA-TOBACCO FORMER USER [facility] Tobacco Use History This section includes a history of the smoking, or tobacco-related health factors, that were collected on or before the date of the Encounter. The data comes from the [place] facility where the Encounter took place. Date/Time Smoking Status/Tobacco Use Comment F acility Dec 19, 2020 12:07 PM [place]-TOBACCO QUIT 5 TO < 15 YRS [facility] Aug 02, 2015 09:49 AM CURRENT TOBACCO USER [facility] Jun 06, 2014 08:51 AM CURRENT TOBACCO USER [facility] May 04, 2013 09:29 AM CURRENT TOBACCO USER [facility] Apr 24, 2012 07:40 AM CURRENT TOBACCO USER [facility] Advance Directives: All historical and current Section Date Range: From patient's date of to the date document was created. This section includes ALL of a patient's completed or amended [place] Advance and Rescinded Directives. The entries below indicate that a directive exists for the patient, but an actual copy is not included with this document. The data comes from all [facility]. 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 Did the ordering provider speak with a business analysis consultant regarding this imaging exam? 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 Responsible provider name and phone number to notify for critical findings if other than user placing the order and pager listed below: User placing orders pager: [phone] LAST CREATININE 1.2 (10/07/23) Allergies: Patient has answered NKA Report Status: Verified Date Reported: JAN 09, 2024 Date Verified: JAN 09, 2024 Die Fitter E-Sig:/ES/OSBALDO RODGERS MD Report: MRI BRAINBRAINSTEM W [...] Primary Interpreting Staff: OSBALDO RODGERS MD, RADIOLOGIST (Die Fitter) /[facility] OSBALDO RODGERS [facility] Jan 06, 2024 03:24 PM CHEST 1 VIEW: CARRILLOGILDA RAY [id number] -1950 M Ex Date: JAN 06, 2024@15:24 Req Phys: LEROY ULLOA Loc: [facility] EMERGENCY DEPT WALK-IN (Re Img Loc: MAIN X-RAY Service: [place] [address] (Case [id number] COMPLETE) CHEST 1 VIEW (RAD Detailed) CPT:80069 Proc Modifiers : PORTABLE EXAM Reason for Study: Shortness of breath, cough Clinical History: [place] IS under investigation (PUI) for COVID-19 or [...] 06, 2024 Date Verified: JAN 06, 2024 Die Fitter E-Sig:/ES/BHARAT PARKER MD Report: EXAMINATION: CHEST 1 [...] Primary Interpreting Staff: BHARAT PARKER MD, RADIOLOGIST (Die Fitter) /RTS BHARAT PARKER [facility] Encounter Notes: All associated encounter notes This section contains the clinical notes associated to the Encounter. Date/Time Encounter Note(s) Provider Source Jan 06, 2024 06:49 PM EMERGENCY DEPT EDU CATION NOTE: LOCAL TITLE: EMERGENCY DEPT DISCHARGE INSTRUCTIONS STANDARD TITLE: EMERGENCY DEPT EDUCATION NOTE DATE OF NOTE: JAN 06, 2024@18:49:53 ENTRY DATE: JAN 06, 2024@18:49:53 AUTHOR: LEROY ULLOA EXP COSIGNER: URGENCY: STATUS: COMPLETED DISCHARGE INSTRUCTIONS IMPORTANT: We examined and treated you today on an emergency basis only. This was not a substitute for, or an effort to provide, comprehensive medical care. In most cases, you must let your healthcare provider check you again. Tell your healthcare provider about any new or lasting problems. We cannot recognize and treat all injuries or illnesses in one Emergency Department visit. After you leave, you should follow the instructions below. You were treated today by Leroy Ulloa, . - Special Information - - This Information Is About Your Follow Up Care - We recommend that you follow up with your Primary Care Team to have an appointment within the next 1 week. Call to arrange this appointment. If you are not feeling better and improving as discussed or if you have any questions please contact your Primary Care Provider. Future Appointments 01/08/2024 at 7:45pm [facility] MRI PM CLINIC 01/12/2024 at 12:40pm [facility] EYE TECH VISUAL FIELD 01/12/2024 at 1:15pm [facility] EYE RESIDENT FOL/UP 01/13/2024 at 3:00pm [facility] DIETITIAN TELEPHONE 02/04/2024 at 1:30pm [facility] 79 LAB 02/04/2024 at 2:30pm [facility] CHF [employer]IVE 79 02/11/[facility]24 [facility] 2:30pm [facility] 02/12/2024 at 1:30pm [facility] AUD FIVE 03/29/2024 at 1:00pm [facility] EYE RESIDENT NEURO-OPH - This Information Is About Your Illness and Diagnosis - COPD: FLARE-UPS OR EXACERBATION OF SYMPTOMS Despite your best efforts, your COPD symptoms can worsen. This is known as a flare-up, or exacerbation of your condition. It can occur suddenly. You may feel too tired or short of breath to do your regular activities. You may need to use your short-acting (rescue) inhalers more than usual. You may also find that your inhalers aren't working as well as usual at relieving your shortness of breath. Symptoms of a COPD flare-up may include: -increased shortness of breath -increased cough -increase in the amount of mucus you cough up (sputum) -change in color of your sputum When a flare-up gets out of control, you may need to stay in the hospital for treatments. What causes COPD flare-ups? You and your health care provider may not know what caused your COPD flare-up. Sometimes, a flare-up is just a sign that your treatment plan needs adjusting. More common causes of COPD flare-ups include: -a lung infection, such as a cold, flu, or pneumonia -exposure to irritants, such as pollen, strong odors, air pollution, or cold air -smoking or breathing in second-hand smoke -other issues such as a pulmonary embolism (clot in the lung) or congestive heart failure What is the general treatment of a COPD flare-up? -reduce the swelling and mucus in your airways -make sure your lungs are able to take in enough oxygen -make sure your blood contains a healthy amount of oxygen -find the cause, if possible, of your COPD flare-up -treat any infections that may be causing your worsening symptoms -adjust your medicines to keep your COPD in control What can I expect if I have to stay in the hospital? -If you need to stay in the hospital due to your problems with COPD, your health care provider will order tests. These tests help your health care provider decide the best treatment for you. You will have blood tests, breathing tests, and chest x-rays. -You will probably be given antibiotic medicines through an intravenous line (IV). Antibiotics treat infections caused by bacteria. They do not treat infections caused by viruses. You may be given other medicines as well. -You will receive extra oxygen. Your lungs may not be able to take in enough oxygen. If this is the case, you may need the assistance of a ventilator to help you breathe. At home, please follow these instructions: -Keep all follow-up appointments with your health care provider. -Take your medicines exactly as prescribed. -Balance your activity with rest. -Eat healthy foods with plenty of protein. -In the future, try to take steps to keep your COPD from getting out of control: -Since lung infections are the main cause of COPD flare-ups, get early treatment for signs of a developing infection. Look at the mucus you spit or cough up from your lungs every day. Mucus that is not infected is watery, clear, or white. Infected mucus can be brown, yellow, green, or have blood streaks in it. -Be active in limiting the number of infections you get. Many infections are picked up through other people or things we touch. -Wash your hands often. Use soap and water. -Avoid contact with people who have colds, the flu, or pneumonia. -Get a vaccine for both flu and pneumonia. Check with your health care provider to see when these shots are available. -Work with your health care provider to create a written Flare-up action plan. Try to do this before a flare-up occurs: -What triggers or things should you avoid to prevent a flare-up? -Identify your early warning signs of a flare-up. (Everyone's warning signs are different.) -What steps should you take when warning signs appear? (This may include breathing techniques, taking certain medicines, or knowing who to call). Call 911 or contact your health care provider immediately if: -you are suddenly or severely short of breath. -you have chest pain or tightness. -your breathing and heart rate is very fast. -you are extremely tired. -your lips or fingernails are blue or olson. -you cough up blood. Contact your health care provider as soon as possible if: -you are developing an infection: -fever or chills -mucus turns brown, yellow, green, or has blood streaks in it -increased amount of mucus -increased coughing -increased shortness of breath -your COPD symptoms gradually get worse. -your medicines don't relieve your COPD symptoms. -you have any new or bothersome symptoms. BRONCHITIS Bronchitis is inflammation within the lungs. The lungs contain air passages called bronchioles. They are the larger tubes that supply oxygen to the rest of the lung. When these bronchioles get inflamed (swell), it is called bronchitis. What causes bronchitis? Bronchitis is usually caused by a virus. It usually occurs as a complication from the common cold or flu. Occasionally, bronchitis is caused by bacteria. There are many different viruses that cause bronchitis. Colds and bronchitis are most common in the fall and winter. In spite of common belief, colds are not caused by cold weather. Colds occur more often in cold weather due to: -an increased number of people being inside and in close contact with each other -tubing drier weather - it is easier for viruses to attach to tubing drier mucus membranes, such as the lining of the nose or bronchioles Bronchitis is contagious - the virus that causes it can be passed from one person to another. You must come in contact with the affected virus. The virus can be passed through: -the air when a person sneezes or coughs. You can get the infection when you breathe in the affected air, and the virus attaches to the lining of your nose or throat. -direct contact with an infected person or object. This can occur when an infected person touches their nose (or nose secretions), mouth or eyes, then touch other people or objects with their infected hands. Common contaminated objects include toys, keyboards, door knobs, remote controls, or game controllers. Touching your mouth, nose, and eyes without washing your hands is also a way to get a virus. Most people get symptoms 2 to 3 days after being exposed to the virus. You are most contagious the first 3 days of the illness (once you have symptoms). Acute bronchitis can last 1 to 2 weeks. How does my health care provider know that I have bronchitis? Signs and symptoms: -tiredness -cough that may bring up yellow, olson, or green mucus -mild muscle aches or chest discomfort -low fever How can bronchitis affect my health? What are the complications or risks? The risks of having bronchitis are higher for people who have certain chronic conditions, such as asthma or COPD. Complications are rare, but may include pneumonia. What is the usual treatment? The goal of treatment is to relieve your symptoms and to prevent further complications. Please follow these instructions: -Drink extra liquids such as water, hot tea, or even chicken soup. -Do not smoke. If you need help quitting, talk with your health care provider. -Stay away from second-hand smoke. This further irritates the lining of the nose, throat, and lungs. -To control pain or a fever, take nonsteroidal anti-inflammatory drugs (NSAIDs, such as ibuprofen, Motrin, Advil, or naproxen) or acetaminophen (Tylenol). -Use a cool-mist vaporizer or humidifier in the room. -Use saline spray/rinse in your nose. This may help relieve congestion. -Cough and blow your nose into a tissue. Throw the tissue in the garbage after using it. Use tissues rather than a handkerchief. -Wash your hands with soap and water after touching your nose, eyes, mouth and after blowing your nose. -Be careful if you take an uevt-hck-mswgphx cough medicine that includes an antihistamine. Antihistamines can make you very drowsy. This can make it dangerous for you to drive or operate heavy machinery. -If cold weather makes you cough, wear a face mask or place a scarf around your mouth and nose when you are outside. Contact your health care provider immediately if you are struggling to breathe. Contact your health care provider as soon as possible if you: -have a fever or pain not relieved by acetaminophen or ibuprofen. -have a cough that lasts more than 3 weeks or keeps you from sleeping. -notice that your cough brings up phlegm that has darkened in color or contains blood. -have any new or bothersome symptoms. - IMPORTANT MEDICATION INFORMATION -Your medication list includes any medications that were recently prescribed but not filled by the Pharmacy (PENDING Medicines). -Included are any known ACTIVE Medicines. Please review this list to make sure it is accurate, if this list does not match the current medications you are taking please follow-up with your Primary Care Team to have your Medication List reviewed. Pending Medications DOXYCYCLINE HYCLATE 100MG TAB \ Sig: TAKE ONE TABLET BY MOUTH TWICE A DAY\Indication: Bronchitis PREDNISONE 20MG TAB \ Sig: TAKE TWO TABLETS BY MOUTH EVERY MORNING\Indication: COPD Active Medications A & D OINT APPLY LIBERALLY TO GROIN AND BUTTOCKS TOPICALLY DIRECTED INTERTRIGO ACETAMINOPHEN 500MG TAB TAKE TWO TABLETS BY MOUTH THREE TIMES A DAY FOR PAIN *NOT TO EXCEED 4000MG IN 24 HOURS FROM ALL SOURCES* ALBUTEROL 3/IPRATROP 0.5MG/3ML INHL 3ML INHALE 3ML IN NEBULIZER BY INHALATION EVERY 4 HOURS NEEDED FOR SHORTNESS OF BREATH ALBUTEROL 90MCG (CFC-F) 200D ORAL INHL INHALE 2 PUFFS BY INHALATION FOUR TIMES A DAY NEEDED FOR SHORTNESS OF BREATH SHAKE WELL (FOR IMMEDIATE RELIEF). APIXABAN 5MG TAB (Active/Suspended) TAKE ONE TABLET BY MOUTH EVERY 12 HOURS TO TREAT AND/OR PREVENT BLOOD CLOTS BISACODYL 5MG EC TAB TAKE TWO TABLETS BY MOUTH ONCE FOR COLON PREP BRIEF,TRANQUILITY AUGUSTIN OVERNITE XXL#2118 USE BRIEF DIRECTED NEEDED CARBOXYMETHYLCELLULOSE NA 0.5% OPH SOLN INSTILL 1 DROP IN BOTH EYES FOUR TIMES A DAY FOR DRY EYES CLEANSING CLOTH ATTENDS PKT USE 1 WASHCLOTH TOPICALLY DIRECTED COLON ELECTROLYTE LAVAGE PWD FOR SOLN TAKE ONE CONTAINER BY MOUTH DIRECTED FOR COLON PREP DICLOFENAC NA 1% TOP GEL APPLY 2 GRAMS TOPICALLY TWO TIMES A DAY NEEDED FOR PAIN -USE DOSE CARD IN BOX TO MEASURE DOSE -MAXIMUM OF 32 GM PER DAY DOFETILIDE 250MCG CAP (Active/Suspended) TAKE ONE CAPSULE BY MOUTH TWICE A DAY FOR ATRIAL FIBRILLATION DRESSING,MEPILEX BORDER HEEL 8.7INX9.1IN APPLY 1 DRESSING TOPICALLY THREE TIMES WEEKLY EMPAGLIFLOZIN 25MG TAB TAKE ONE-HALF TABLET BY MOUTH EVERY MORNING FOR HEART FAILURE FLUTICASONE PROP 50MCG 120D NASAL INHL SPRAY 2 SPRAYS IN EACH NOSTRIL EVERY DAY FOR NASAL DRIP FUROSEMIDE 40MG TAB (Active/Suspended) TAKE TWO TABLETS BY MOUTH EVERY MORNING FOR EXCESS FLUID FOR WEIGHT GAIN OR WORSENING HEART FAILURE SYMPTOMS GABAPENTIN 400MG CAP TAKE ONE CAPSULE BY MOUTH FOUR TIMES A DAY FOR PAIN AND NUMBNESS GUAIFENESIN 200MG TAB TAKE TWO TABLETS BY MOUTH THREE TIMES A DAY FOR COPD/COUGH/MUCUS KETOCONAZOLE SHAMPOO 2%SHAMPOO TOPICALLY (Non-VA Medication) LIDOCAINE 5% PATCH APPLY 3 PATCHES TOPICALLY EVERY DAY FOR PAIN. WEAR FOR ONLY 12 HOURS THEN REMOVE FOR 12 HOURS. ONE PATCH FOR EACH HIP AND ONE PATCH FOR LOW BACK LORAZEPAM 1MG TAB TAKE ONE TABLET BY MOUTH DIRECTED ONE HOUR PRIOR TO VISIT AND ONE TABLET DURING THE VISIT FOR MRI. FOR CLAUSTROPHOBIA LOSARTAN 50MG TAB TAKE ONE TABLET BY MOUTH EVERY MORNING FOR HEART FAILURE LUBRICATING (PF) OPH OINT APPLY A SMALL AMOUNT TO BOTH EYES AT BEDTIME FOR DRY EYES NYSTATIN [id number] UNT/GM CREAM APPLY THIN LAYER TOPICALLY TWICE A DAY FUNGAL INFECTION EXTERNAL USE ONLY APPLY TO PANNUS POLYETHYLENE GLYCOL 3350 ORAL PWDR TAKE 17 GRAMS BY MOUTH EVERY DAY NEEDED FOR CONSTIPATION POTASSIUM CL 20MEQ SA TAB (DISPERSIBLE) TAKE TWO TABLETS BY MOUTH TWICE A DAY FOR POTASSIUM SUPPLEMENT SEMAGLUTIDE 2MG/0.75ML INJ PEN 3ML INJECT 2MG UNDER THE SKIN EVERY WEEK FOR DIABETES SKIN PREP WIPE USE 1 WIPE TOPICALLY THREE TIMES A WEEK REPLACES SKIN BARRIER FILM DUE TO BACKORDER SPIRONOLACTONE 25MG TAB TAKE ONE TABLET BY MOUTH EVERY DAY FOR HEART FAILURE TAZAROTENE 0.1% TOP CREAM APPLY THIN LAYER TOPICALLY AT BEDTIME TO THE FEET WITH THE 40% UREA CREAM, UNDER OCCLUSION DIRECTED TRAZODONE HCL 50MG TAB TAKE ONE TABLET BY MOUTH AT BEDTIME FOR SLEEP TRIAMCINOLONE ACETONIDE 0.1% OINT APPLY THIN LAYER TOPICALLY TWICE A DAY AVOID FACE,GROIN & ARMPITS *FOR EXTERNAL USE ONLY APPLY TO INTACT SKIN ON LOWER LEGS AFTER DILUTE VINEGAR OR VASHE SOAKS. WRAP WITH KERLIX. UNDERPAD,BED 23IN X 36IN PLASTIC BACK USE CHUX DIRECTED UREA 40% CREAM APPLY THIN LAYER TOPICALLY EVERY DAY DIRECTED FOR THICK SKIN VANICREAM TOP CREAM APPLY THIN LAYER TOPICALLY EVERY DAY IDEALLY WITHIN 3 MINUTES AFTER BATH OR SHOWER. TO ALL AREAS OF SKIN FOR MOISTURIZER FOR DRY SKIN ZINC OXIDE 20% OINT APPLY SMALL AMOUNT TOPICALLY THREE TIMES A WEEK NEEDED FOR WOUND PREVENTION Medications Medications in the last 90 days DIMETHICONE 12.5% TOP CREAM APPLY AFFECTED AREA TOPICALLY THREE TIMES A WEEK HYDROPHILIC (EQV AQUAPHOR) TOP OINT APPLY SMALL AMOUNT TOPICALLY THREE TIMES A WEEK FOR DRY SKIN KERLIX 4.5IN STERILE USE 1 BANDAGE TOPICALLY DIRECTED YOU ARE THE MOST IMPORTANT FACTOR IN YOUR RECOVERY. Follow the above instructions carefully. Take your medicines as prescribed. If you do not understand any of your medicines, please ask questions. If you have any outstanding tests from the emergency department, please contact your provider to review them in the next 3-5 days. If you have new symptoms, feel worse, or are not getting better as discussed, call to discuss your health questions and arrange for follow-up care, or return to the Emergency Room IF YOU ARE EXPERIENCING A MEDICAL EMERGENCY CALL 911 OR GO TO THE NEAREST EMERGENCY ROOM // LEROY ULLOA MD EMERGENCY MEDICINE PHYSICIAN Signed: 01/06/2024 18:49 LEROY ULLOA [facility]
--- OUTSIDE RECORDS SUMMARY | 2024-03-25 10:39 | XMS_ITS | Encounter Summary ---
Author Name [facility] Organization [facility] Address [address] [place] [address] Care Team Providers Care Deputy Director Name Role Phone GELACIO MICHEL Primary Care [...] PART A Jul 21, 2014 PART A [phone] Miguelito CARRILLO PATIENT Selected Encounter This section includes the information on record at ID for the Encounter. Date/Time Encounter Type Encounter Description Reason Pro vider Source Jan 12, 2024 04:13 PM Outpatient Encounter ADMIN PAT ACTIVTIES (MASNONCT) [facility] Encounter Template Text not used by ID Plan of Treatment: Future Appointments (+ 6 months) and Future Tests (+/- 45 days) The Plan of Treatment section includes future care activities for the patient from all ID treatmentfacilities. This section includes future appointments and future orders which are active, pending or scheduled. Future Appointments This section includes appointments that were scheduled to occur 6 months from the date of the Encounter, up to a maximum of 20 appointments. The data comes from all [facility] treatment facilities. Appointment Date/Time Appointment Type Appointme nt Facility Name Jan 13, 2024 03:00 PM AMBULATORY - NONE [facility] Jan 21, 2024 11:30 AM [facility]ATORY - [facility]ICINE [facility] Feb 04, 2024 01:30 PM AMBULATORY - MEDICINE [facility] Feb 04, 2024 02:30 PM AMBULATORY - MEDICINE [facility] Feb 11, 2024 02:30 PM [facility] Feb 12, 2024 12:30 PM [facility] Feb 12, 2024 01:30 PM AMBULATORY - SURGERY [facility] Feb 12, 2024 03:00 PM AMBULATORY - SURGERY [facility] Feb 19, 2024 02:15 PM AMBULATORY - MEDICINE [facility] Feb 26, 2024 10:00 AM AMBULATORY - NONE [facility] Mar 29, 2024 01:00 PM AMBULATORY - SURGERY [facility] Mar 29, 2024 02:00 PM AMBULATORY - SURGERY [facility] Mar 30, 2024 08:30 AM AMBULATORY - [facility] Apr 01, 2024 10:00 AM AMBULATORY - NONE [facility] Apr 12, 2024 10:15 AM AMBULATORY - SURGERY [facility] Apr 13, 2024 01:15 PM AMBULATORY - MEDICINE [facility] Apr 13, 2024 01:30 PM AMBULATORY - MEDICINE [facility] Apr 13, 2024 02:00 PM AMBULATORY - MEDICINE [facility] Apr 15, 2024 01:45 PM AMBULATORY - SURGERY [facility] May 06, 2024 04:00 PM AMBULATORY - MEDICINE [facility] Active, [...] of theEncounter. The data comes from all [facility]. Test Date/Time Test Type Test Details Facility Name Jan 06, 2024 12:00 AM Laboratory - Chemi cuauhtemoc Order BNP PLASMA SP ONCE [facility] Lab Results: +/- 30 days of the encounter This section includes the Chemistry and Hematology Lab Results on record with ID for the patient. Radiology Reports and Pathology Reports are provided separately, in subsequent sections. Lab Results This section contains the Chemistry/Hematology Results that were resulted 30 days before or 30 daysafter the date of the Encounter. Date/Time Source Result Type Result - Unit Interpretation Reference Range Comment Feb 04, 2024 01:40 PM [facility] BNP Specimen Type: PLASMA No comment entered. Ordering Provider: JACOB VIRGEN Report Released Date/Time: Aug 13, 2023 11:38 AM Reporting Lab: [facility] [phone] Performing Lab: [facility] [id number] BNP 23 pg/mL <99 Feb 04, 2024 01:40 PM [facility] BASIC METABOLIC PANEL+MG Specimen Type: PLASMA No comment entered. Ordering Provider: JACOB VIRGEN Report Released Date/Time: Aug 13, 2023 11:38 AM Reporting Lab: [facility] [phone] Performing Lab: [facility] [address] CREATININE 1.2 mg/dL 0.7-1.2 UREA NITROGEN 18 mg/dL 8-26 GLUCOSE 102 mg/dL H 70-100 SODIUM 140 mmol/L 136-145 POTASSIUM 4.1 mmol/L 3.5-5.1 CHLORIDE 102 mmol/L 98-107 CO2 27 mmol/L 22-29 CALCIUM 10.0 mg/dL 8.4-10.2 MAGNESIUM 2.3 mg/dL 1.6-2.6 ANION GAP 11 mmol/L 5-15 .CREAT EGFR(CKD-EPI) 63 >60 Jan 06, 2024 03:40 PM [facility] COVID-19 DIAGNOSTIC PANEL (BIOFIRE) Specimen Type: NASOPHARYNGEAL Comment: Biofire Torch (388) Ordering Provider: ROXANNE BUCKLEY Report Released Date/Time: Jan 06, 2024 03:22 PM Reporting Lab: [facility] [phone] Performing Lab: [facility] [phone] C PNEUMONIAE PCR NOT DETECTED NOT DETECTED [...] NOT DETECTED Jan 06, 2024 03:22 PM [facility] POC CREATININE Specimen Type: BLOOD No comment entered. Ordering Provider: ALLISON PARRA Report Released Date/Time: Jan 06, 2024 03:24 PM Reporting Lab: [facility] [phone] Performing Lab: [facility] [address] POC CREATININE 1.5 mg/dL 0.6-1.3 Jan 06, 2024 03:19 PM [facility] POC ABG/LACTATE Specimen Type: VENOUS BLOOD No comment entered. Ordering Provider: ALLISON PARRA Report Released Date/Time: Jan 06, 2024 03:24 PM Reporting Lab: [facility] [phone] Performing Lab: [facility] [address] POC PH 7.402 7.31-7.41 POC PCO2 50.1 mm[Hg] 41-51 POC PO2 24 mm[Hg] POC TCO2 33 mmol/L 24-29 POC HCO3 31.2 mmol/L 23-28 POC BE ECT 6 mmol/L -2-3 POC SO2 41 POC LACTATE <1.6 mmol/L 0.90-1.70 Jan 06, 2024 03:14 PM [facility] EXTRA BLUE TUBE Specimen Type: PLASMA No comment entered. Ordering Provider: ROXANNE BUCKLEY Report Released Date/Time: Jan 06, 2024 03:36 PM Reporting Lab: [facility] [address] Performing Lab: [facility] [phone] EXTRA BLUE TUBE RECEIVED Jan 06, 2024 03:14 PM [facility] BNP Specimen Type: PLASMA No comment entered. Ordering Provider: ROXANNE BUCKLEY Report Released Date/Time: Jan 06, 2024 03:22 PM Reporting Lab: [facility] [address] Performing Lab: [facility] [address] BNP 18 pg/mL <99 Jan 06, 2024 03:14 PM [facility] TROPONIN I, HS Specimen Type: PLASMA No comment entered. Ordering Provider: ROXANNE BUCKLEY Report Released Date/Time: Jan 06, 2024 03:22 PM Reporting Lab: [facility] [address] Performing Lab: [facility] [address] TROPONIN I, HS <3 <35 Jan 06, 2024 03:14 PM [facility] EXTRA GOLD GEL TUBE Specimen Type: SERUM No comment entered. Ordering Provider: ROXANNE BUCKLEY Report Released Date/Time: Jan 06, 2024 03:36 PM Reporting Lab: [facility] [address] Performing Lab: [facility] [address] EXTRA GOLD GEL TUBE RECEIVED Jan 06, 2024 03:14 PM [facility] CBC & DIFF Specimen Type: BLOOD Comment: Automated Differential Performed Ordering Provider: ROXANNE BUCKLEY Report Released Date/Time: Jan 06, 2024 03:22 PM Reporting Lab: [facility] [address] Performing Lab: [facility] [address] WBC 11.27 10*3/uL H 4.0-11.0 RBC 4.81 [...] 10*3/uL 0-0.1 Jan 06, 2024 11:57 AM [facility] BASIC METABOLIC PANEL+MG Specimen Type: PLASMA No comment entered. Ordering Provider: HITESH HOLGUIN Report Released Date/Time: Oct 07, 2023 02:47 PM Reporting Lab: [facility] [address] Performing Lab: [facility] [address] CREATININE 1.0 mg/dL 0.7-1.2 UREA NITROGEN 16 mg/dL 8-26 GLUCOSE 112 mg/dL H 70-100 SODIUM 137 mmol/L 136-145 POTASSIUM 4.1 mmol/L 3.5-5.1 CHLORIDE 101 mmol/L 98-107 CO2 26 mmol/L 22-29 CALCIUM 9.6 mg/dL 8.4-10.2 MAGNESIUM 2.4 mg/dL 1.6-2.6 ANION GAP 10 mmol/L 5-15 .CREAT EGFR(CKD-EPI) 79 >60 Dec 30, 2023 11:00 AM [facility] .OCCULT BLOOD(FIT) Specimen Type: FECES No comment entered. Ordering Provider: SRUTHI ANDUJAR Report Released Date/Time: Dec 30, 2023 11:00 AM Reporting Lab: [facility] [address] Performing Lab: [facility] [address] [facility] [address] .OCCULT BLOOD(FIT) POSITIVE Social History: Smoking Status (Most current) and Tobacco Use (All prior to encounter date) This section includes the most current, and the historical, smoking and tobacco- related health factors from the ID facility where the Encounter took place. Current Smoking Status This section includes the most current smoking, or tobacco-related health factor, from the ID facility where the Encounter took place. Date/Time Current Smoking Status Comment Facil ity Dec 19, 2020 12:07 PM [facility] FORMER USER [facility] Tobacco Use History This section includes a history of the smoking, or tobacco-related health factors, that were collected on or before the date of the Encounter. The data comes from the ID facility where the Encounter took place. Date/Time [...] ALL of a patient's completed or amended ID Advance and Rescinded Directives. The entries below [...] the Encounter. The data comes from all ID treatment facilities. Date/Time Radiology Report Provider Source Jan 08, 2024 08:00 PM MRI-BRAIN (P): GILDA CARRILLO [id number] -1950 M Ex Date: JAN 08, 2024@20:00 Req Phys: ROSEANN GAMA Loc: [facility] E[facility] RESIDENT FOL/UP (Req'g Img Loc: MRI IMAGING Service: [place] [address] (Case [id number] COMPLETE) MRI BRAINBRAINSTEM W & W/O CONTRA(MRI Detailed) CPT:33373 Contrast Media : Gadolinium Reason for Study: gradual right eye vision loss over with right optic nerve atroph (Case [id number] COMPLETE) MRI NECK/FACE/ORBIT W/CONTRAST (MRI Detailed) CPT:79467 Contrast Media : Gadolinium Clinical History: Per Joint Commission Standards, by signing this diagnostic imaging request the ordering provider confirms they have considered patients age and recent imaging history. Did the ordering provider speak with a successfactors consultant regarding this imaging exam? 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 Responsible provider name and phone number to notify for critical findings if other than user placing the order and pager listed below: User placing orders pager: [phone] LAST CREATININE 1.2 (10/07/23) Allergies: Patient has answered NKA Report Status: Verified Date Reported: JAN 09, 2024 Date Verified: JAN 09, 2024 Healthcare Recruiter E-Sig:/ES/OSBALDO RODGERS MD Report: MRI BRAINBRAINSTEM W [...] Primary Interpreting Staff: OSBALDO RODGERS MD, RADIOLOGIST (Healthcare Recruiter) /CDC OSBALDO RODGERS [facility] Jan 06, 2024 03:24 PM CHEST 1 VIEW: GERARDOGILDA RAY [id number] -1950 M Exm Date: JAN 06, 2024@15:24 Req Phys: ANNI BUCKLEY Pat Loc: [facility] EMERGENCY DEPT WALK-IN (Re Img Loc: MAIN X-RAY Service: [place] [address] (Case [id number] COMPLETE) CHEST 1 VIEW (RAD Detailed) CPT:43238 Proc Modifiers : PORTABLE EXAM Reason for Study: Shortness of breath, cough Clinical History: [place] IS under investigation (PUI) for COVID-19 or [...] 06, 2024 Date Verified: JAN 06, 2024 Healthcare Recruiter E-Sig:/ES/BHARAT PARKER MD Report: EXAMINATION: CHEST 1 [...] Primary Interpreting Staff: BHARAT PARKER MD, RADIOLOGIST (Healthcare Recruiter) /RTS BHARAT PARKER [facility] Encounter Notes: All associated encounter notes This section contains the clinical notes associated to the Encounter. Date/Time Encounter Note(s) Provider Source Jan 06, 2024 04:13 PM SCANNED REPORT: LOCAL TITLE: TELEMETRY RHYTHM STRIPS STANDARD TITLE: SCANNED REPORT DATE OF NOTE: JAN 06, 2024@16:13 ENTRY DATE: JAN 12, 2024@16:13:57 AUTHOR: NOAM ZUÑIGA EXP COSIGNER: URGENCY: STATUS: COMPLETED [facility]. /mateo/ NOAM ZUÑIGA Fire Sprinkler Fitter Signed: 01/12/2024 16:14 NOAM ZUÑIGA [facility]
--- OUTSIDE RECORDS SUMMARY | 2024-03-25 10:39 | XMS_ITS | Encounter Summary ---
Author Name [facility] Organization [facility] Address [address] [place] [address] Care Team Providers Care Scoop Driver Name Role Phone GELACIO MICHEL Primary [...] PART A Jul 21, 2014 PART A [phone] Miguelito CARRILLO PATIENT Selected Encounter This section includes the information on record at [place] for the Encounter. Date/Time Encounter Type Encounter Description Reason Pro vider Source Jan 14, 2024 08:58 AM Outpatient Encounter PRIMARY CARE/MEDICINE IHE Encounter Template Text not used by [place] Plan of Treatment: Future Appointments (+ 6 months) and Future Tests (+/- 45 days) The Plan of Treatment section includes future care activities for the patient from all [place] treatmentfacilities. This section includes future appointments and future orders which are active, pending or scheduled. Future Appointments This section includes appointments that were scheduled to occur 6 months from the date of the Encounter, up to a maximum of 20 appointments. The data comes from all [place] treatment facilities. Appointment Date/Time Appointment Type Appointme nt Facility Name Jan 21, 2024 11:30 AM [facility]ATORY - [facility] Feb 04, 2024 01:30 PM AMBULATORY - MEDICINE [facility] Feb 04, 2024 02:30 PM AMBULATORY - MEDICINE [facility] Feb 11, 2024 02:30 PM AMBULATORY - MEDICINE [facility] Feb 12, 2024 12:30 PM AMBULATORY - NONE [facility] Feb 12, 2024 01:30 PM AMBULATORY - SURGERY [facility] Feb 12, 2024 03:00 PM AMBULATORY - SURGERY [facility] Feb 19, 2024 02:15 PM AMBULATORY - MEDICINE [facility] Feb 26, 2024 10:00 AM AMBULATORY - NONE [facility] Mar 29, 2024 01:00 PM AMBULATORY - SURGERY [facility] Mar 29, 2024 02:00 PM AMBULATORY - SURGERY [facility] Mar 30, 2024 08:30 AM [facility] - [facility] Apr 01, 2024 10:00 AM AMBULATORY - NONE [facility] Apr 12, 2024 10:15 AM AMBULATORY - SURGERY [facility] Apr 13, 2024 01:15 PM AMBULATORY - MEDICINE [facility] Apr 13, 2024 01:30 PM AMBULATORY - MEDICINE [facility] Apr 13, 2024 02:00 PM AMBULATORY - MEDICINE [facility] Apr 15, 2024 01:45 PM AMBULATORY - SURGERY [facility] May 06, 2024 04:00 PM AMBULATORY - MEDICINE [facility] May 12, 2024 02:00 PM AMBULATORY - MEDICINE [facility] Active, Pending, and Scheduled Orders [...] OT OCCUPAT IONAL THERAPY OUTPT EQUIPMENT Cons Document Control Specialist's Choice PASHA NICHOLS Lab Results: +/- 30 [...] Feb 04, 2024 02:58 PM Reporting Lab: [facility] [phone] Performing Lab: [facility] [address] CREATININE 1.4 mg/dL H 0.7-1.2 UREA NITROGEN [...] Aug 13, 2023 11:38 AM Reporting Lab: [facility] [address] Performing Lab: [facility] [address] BNP 23 pg/mL <99 Feb 04, 2024 01:40 PM [facility] BASIC METABOLIC PANEL+MG Specimen Type: PLASMA No comment entered. Ordering Provider: JACOB VIRGEN Report Released Date/Time: Aug 13, 2023 11:38 AM Reporting Lab: [facility] [address] Performing Lab: [facility] [address] CREATININE 1.2 mg/dL 0.7-1.2 UREA NITROGEN 18 mg/dL 8-26 GLUCOSE 102 mg/dL H 70-100 SODIUM 140 mmol/L 136-145 POTASSIUM 4.1 mmol/L 3.5-5.1 CHLORIDE 102 mmol/L 98-107 CO2 27 mmol/L 22-29 CALCIUM 10.0 mg/dL 8.4-10.2 MAGNESIUM 2.3 mg/dL 1.6-2.6 ANION GAP 11 mmol/L 5-15 .CREAT EGFR(CKD-EPI) 63 >60 Jan 06, 2024 03:40 PM [facility] COVID-19 DIAGNOSTIC PANEL (BIOFIRE) Specimen Type: NASOPHARYNGEAL Comment: Biofire Torch (148) Ordering Provider: ROXANNE BUCKLEY Report Released Date/Time: Jan 06, 2024 03:22 PM Reporting Lab: [facility] [address] Performing Lab: [facility] [address] C PNEUMONIAE PCR NOT DETECTED NOT DETECTED [...] NOT DETECTED Jan 06, 2024 03:22 PM [facility] POC CREATININE Specimen Type: BLOOD No comment entered. Ordering Provider: ALLISON PARRA Report Released Date/Time: Jan 06, 2024 03:24 PM Reporting Lab: [facility] [address] Performing Lab: [facility] [address] POC CREATININE 1.5 mg/dL 0.6-1.3 Jan 06, 2024 03:19 PM [facility] POC ABG/LACTATE Specimen Type: VENOUS BLOOD No comment entered. Ordering Provider: ALLISON PARRA Report Released Date/Time: Jan 06, 2024 03:24 PM Reporting Lab: [facility] [address] Performing Lab: [facility] [address] POC PH 7.402 7.31-7.41 POC PCO2 50.1 mm[Hg] 41-51 POC PO2 24 mm[Hg] POC TCO2 33 mmol/L 24-29 POC HCO3 31.2 mmol/L 23-28 POC BE ECT 6 mmol/L -2-3 POC SO2 41 POC LACTATE <1.6 mmol/L 0.90-1.70 Jan 06, 2024 03:14 PM [facility] EXTRA BLUE TUBE Specimen Type: PLASMA No comment entered. Ordering Provider: ROXANNE BUCKLEY Report Released Date/Time: Jan 06, 2024 03:36 PM Reporting Lab: [facility] [address] Performing Lab: [facility] [address] EXTRA BLUE TUBE RECEIVED Jan 06, 2024 03:14 PM [facility] BNP Specimen Type: PLASMA No comment entered. Ordering Provider: ROXANNE BUCKLEY Report Released Date/Time: Jan 06, 2024 03:22 PM Reporting Lab: [facility] [address] Performing Lab: [facility] [address] BNP 18 pg/mL <99 Jan 06, 2024 03:14 PM [facility] TROPONIN I, HS Specimen Type: PLASMA No comment entered. Ordering Provider: ROXANNE BUCKLEY Report Released Date/Time: Jan 06, 2024 03:22 PM Reporting Lab: [facility] [address] Performing Lab: [facility] [address] TROPONIN I, HS <3 <35 Jan 06, 2024 03:14 PM [facility] EXTRA GOLD GEL TUBE Specimen Type: SERUM No comment entered. Ordering Provider: ROXANNE BUCKLEY Report Released Date/Time: Jan 06, 2024 03:36 PM Reporting Lab: [facility] [address] Performing Lab: [facility] [address] EXTRA GOLD GEL TUBE RECEIVED Jan 06, 2024 03:14 PM [facility] CBC & DIFF Specimen Type: BLOOD Comment: Automated Differential Performed Ordering Provider: ROXANNE BUCKLEY Report Released Date/Time: Jan 06, 2024 03:22 PM Reporting Lab: [facility] [phone] Performing Lab: [facility] [address] WBC 11.27 10*3/uL H 4.0-11.0 RBC 4.81 [...] 10*3/uL 0-0.1 Jan 06, 2024 11:57 AM [facility] BASIC METABOLIC PANEL+MG Specimen Type: PLASMA No comment entered. Ordering Provider: HITESH HOLGUIN Report Released Date/Time: Oct 07, 2023 02:47 PM Reporting Lab: [facility] [address] Performing Lab: [facility] [address] CREATININE 1.0 mg/dL 0.7-1.2 UREA NITROGEN 16 mg/dL 8-26 GLUCOSE 112 mg/dL H 70-100 SODIUM 137 mmol/L 136-145 POTASSIUM 4.1 mmol/L 3.5-5.1 CHLORIDE 101 mmol/L 98-107 CO2 26 mmol/L 22-29 CALCIUM 9.6 mg/dL 8.4-10.2 MAGNESIUM 2.4 mg/dL 1.6-2.6 ANION GAP 10 mmol/L 5-15 .CREAT EGFR(CKD-EPI) 79 >60 Dec 30, 2023 11:00 AM [facility] .OCCULT BLOOD(FIT) Specimen Type: FECES No comment entered. Ordering Provider: SRUTHI ANDUJAR Report Released Date/Time: Dec 30, 2023 11:00 AM Reporting Lab: [facility] [address] [facility] [address] Performing Lab: [address] [address] .OCCULT BLOOD(FIT) POSITIVE Social History: Smoking Status [...] F acility Dec 19, 2020 12:07 PM [place]-TOBACCO QUIT 5 TO < 15 YRS [facility] [...] this document. The data comes from all [place] facilities. Date Advance Directives Provider Source Jan 02, 2023 STATE-AUTHORIZED PORTABLE ORDERS [facility] Radiology Reports: +/- 30 days of [...] the Encounter. The data comes from all [place] treatment facilities. Date/Time Radiology Report Provider Source Jan 08, 2024 08:00 PM MRI-BRAIN (P): GILDA CARRILLO [id number] -1950 M Ex Date: JAN 08, 2024@20:00 Req Phys: ROSEANN GAMA Loc: [facility] E[facility] RESIDENT FOL/UP (Req'g Img Loc: MRI IMAGING Service: [place] [address] (Case [id number] COMPLETE) MRI BRAINBRAINSTEM W & W/O CONTRA(MRI Detailed) CPT:48183 Contrast Media : Gadolinium Reason for Study: gradual right eye vision loss over with right optic nerve atroph (Case [id number] COMPLETE) MRI NECK/FACE/ORBIT W/CONTRAST (MRI Detailed) CPT:73546 Contrast Media : Gadolinium Clinical History: Per Joint Commission Standards, by signing this diagnostic imaging request the ordering provider confirms they have considered patients age and recent imaging history. Did the ordering provider speak with a lean consultant regarding this imaging exam? 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 Responsible provider name and phone number to notify for critical findings if other than user placing the order and pager listed below: User placing orders pager: [phone] LAST CREATININE 1.2 (10/07/23) Allergies: Patient has answered NKA Report Status: Verified Date Reported: JAN 09, 2024 Date Verified: JAN 09, 2024 [employer] E-Sig:/ES/OSBALDO RODGERS MD Report: MRI BRAINBRAINSTEM W [...] Primary Interpreting Staff: OSBALDO RODGERS MD, RADIOLOGIST ([employer]) /[facility] OSBALDO RODGERS [facility] Jan 06, 2024 03:24 PM CHEST 1 VIEW: GILDA CARRILLO RAY [id number] -1950 M Exm Date: JAN 06, 2024@15:24 Req Phys: ANNI BUCKLEY Pat Loc: [facility] EMERGENCY DEPT WALK-IN (Re Img Loc: MAIN X-RAY Service: [place] [address] (Case [id number] COMPLETE) CHEST 1 VIEW (RAD Detailed) CPT:94810 Proc Modifiers : PORTABLE EXAM Reason for [...] 2024 Date Verified: JAN 06, 2024 [employer]S [employer] E-Sig:/ES/BHARAT PARKER MD Report: EXAMINATION: CHEST 1 [...] Interpreting Staff: BHARAT PARKER MD, RADIOLOGIST (Men[employer]S [employer] Coach) /RTS BHARAT PARKER [facility] Encounter Notes: All associated encounter notes This section contains the clinical notes associated to the Encounter. Date/Time Encounter Note(s) Provider Source Jan 14, 2024 08:58 AM REPORT OF CONTACT: LOCAL TITLE: APPOINTMENT SCHEDULING NOTE STANDARD TITLE: REPORT OF CONTACT DATE OF NOTE: JAN 14, 2024@08:58 ENTRY DATE: JAN 14, 2024@08:59 AUTHOR: CLARK HILLMAN COSIGNER: URGENCY: STATUS: COMPLETED Attempted to schedule Return to clinic (RTC) Contact attempt made to [facility] 1st attempt Telephone 2nd attempt Letter - Sent letter by regular [place] mail to address on file: GILDA CARRILLO [address] [place] [id number] Left message on voice mail to call back to this number [phone] If [facility] calls back, schedule appt for: Return to [facility] PACT TELEPHONE HEARTS RN on or around ( Jan 23, 2024 ) for a total of 1 appointment(s) Per RN, hospital follow up for COPD exacerbation /es/ [facility]iguelito Signed: 01/14/2024 08:59 CLARK HILLMAN [facility]
--- OUTSIDE RECORDS SUMMARY | 2024-03-25 10:39 | XMS_ITS ---
[facility] NUTRITION/DIETETICS-INDIVIDUAL [facility] Encounter Summary Created on: March 25, 2024 ALEXIS CARRILLOMao TAYLOR : 1950 Sex: Male Author Name [facility] [place] [facility] [place] [facility] [place] [facility] [place] Address [address] [place] [address] Care Team Providers Care Carpenters Name Role Phone GELACIO MICHEL Primary Care [...] PART A Jul 21, 2014 PART A [id number] [phone] Miguelito CARRILLO PATIENT Selected Encounter This section includes the information on record at [place] for the Encounter. Date/Time Encounter Type Encounter Description Reason Pro vider Source Jan 13, 2024 03:00 PM Outpatient Encounter NUTRITION/DIETETICS-I NDIVIDUAL IHE Encounter Template Text not used by [place] Plan of Treatment: Future Appointments (+ 6 months) and Future Tests (+/- 45 days) The Plan of Treatment section includes future care activities for the patient from all [place] treatmentfacilities. This section includes future appointments and future orders which are active, pending or scheduled. Future Appointments This section includes appointments that were scheduled to occur 6 months from the date of the Encounter, up to a maximum of 20 appointments. The data comes from all [place] treatment facilities. Appointment Date/Time Appointment Type Appointme nt Facility Name Jan 21, 2024 11:30 AM AMB[facility]ATORY - [facility] Feb 04, 2024 01:30 PM AMBULATORY - MEDICINE [facility] Feb 04, 2024 02:30 PM AMBULATORY - MEDICINE [facility] Feb 11, 2024 02:30 PM AMBULATORY - MEDICINE [facility] Feb 12, 2024 12:30 PM [facility] Feb 12, 2024 01:30 PM AMBULATORY - SURGERY [facility] Feb 12, 2024 03:00 PM AMBULATORY - SURGERY [facility] Feb 19, 2024 02:15 PM AMBULATORY - MEDICINE [facility] Feb 26, 2024 10:00 AM AMBULATORY - NONE [facility] Mar 29, 2024 01:00 PM AMBULATORY - SURGERY [facility] Mar 29, 2024 02:00 PM AMBULATORY - SURGERY [facility] Mar 30, 2024 08:30 AM AMBULATORY - REHAB [facility] Apr 01, 2024 10:00 AM AMBULATORY - NONE [facility] Apr 12, 2024 10:15 AM AMBULATORY - SURGERY [facility] Apr 13, 2024 01:15 PM AMBULATORY - MEDICINE [facility] Apr 13, 2024 01:30 PM AMBULATORY - MEDICINE [facility] Apr 13, 2024 02:00 PM AMBULATORY - MEDICINE [facility] Apr 15, 2024 01:45 PM AMBULATORY - SURGERY [facility] May 06, 2024 04:00 PM AMBULATORY - MEDICINE [facility] May 12, 2024 02:00 PM AMBULATORY - MEDICINE [facility] Active, Pending, and Scheduled Orders This section includes a listing of several types of active, pending, and scheduled orders, including clinic medications orders, diagnostic test orders, procedure orders and consult orders; where the start date of the order is 45 days before the date of the Encounter or 45 days after the date of theEncounter. The data comes from all [place] treatment [facility]. Test Date/Time Test Type Test Details Facility Name Jan 06, 2024 12:00 AM Laboratory - Chemi stry Order BNP PLASMA SP ONCE [facility] Feb 27, 2024 12:50 PM Consult Order OT OCCUPAT IONAL THERAPY OUTPT EQUIPMENT Cons Director Zone's Choice PASHA NICHOSL Lab Results: +/- 30 days of the encounter This section includes the Chemistry and Hematology Lab Results on record with [place] for the patient. Radiology Reports and Pathology Reports are provided separately, in subsequent sections. Lab Results This section contains the Chemistry/Hematology Results that were resulted 30 days before or 30 daysafter the date of the Encounter. Date/Time Source Result Type Result - Unit Interpretation Reference Range Comment Feb 12, 2024 12:12 PM [facility] BASIC METABOLIC PANEL+MG Specimen Type: PLASMA No comment entered. Ordering Provider: JACOB VIRGEN Report Released Date/Time: Feb 04, 2024 02:58 PM Reporting Lab: [facility] [phone] Performing Lab: [facility] [address] CREATININE 1.4 mg/dL H 0.7-1.2 UREA NITROGEN 21 mg/dL 8-26 GLUCOSE 135 mg/dL H 70-100 SODIUM 136 mmol/L 136-145 POTASSIUM 4.0 mmol/L 3.5-5.1 CHLORIDE 100 mmol/L 98-107 CO2 25 mmol/L 22-29 CALCIUM 9.3 mg/dL 8.4-10.2 MAGNESIUM 2.2 mg/dL 1.6-2.6 ANION GAP 11 mmol/L 5-15 .CREAT EGFR(CKD-EPI) 53 L >60 Feb 04, 2024 01:40 PM [facility] BNP Specimen Type: PLASMA No comment entered. Ordering Provider: JACOB VIRGEN Report Released Date/Time: Aug 13, 2023 11:38 AM Reporting Lab: [facility] [id number] Performing Lab: [facility] [address] BNP 23 pg/mL <99 Feb 04, 2024 01:40 PM [facility] BASIC METABOLIC PANEL+MG Specimen Type: PLASMA No comment entered. Ordering Provider: JACOB VIRGEN Report Released Date/Time: Aug 13, 2023 11:38 AM Reporting Lab: [facility] [address] Performing Lab: [facility] [address] CREATININE 1.2 mg/dL 0.7-1.2 UREA NITROGEN 18 mg/dL 8-26 GLUCOSE 102 mg/dL H 70-100 SODIUM 140 mmol/L 136-145 POTASSIUM 4.1 mmol/L 3.5-5.1 CHLORIDE 102 mmol/L 98-107 CO2 27 mmol/L 22-29 CALCIUM 10.0 mg/dL 8.4-10.2 MAGNESIUM 2.3 mg/dL 1.6-2.6 ANION GAP 11 mmol/L 5-15 .CREAT EGFR(CKD-EPI) 63 >60 Jan 06, 2024 03:40 PM [facility] COVID-19 DIAGNOSTIC PANEL (BIOFIRE) Specimen Type: NASOPHARYNGEAL Comment: Biofire Torch (354) Ordering Provider: ROXANNE BUCKLEY Report Released Date/Time: Jan 06, 2024 03:22 PM Reporting Lab: [facility] [phone] Performing Lab: [facility] [address] C PNEUMONIAE PCR NOT DETECTED NOT DETECTED [...] NOT DETECTED Jan 06, 2024 03:22 PM [facility] POC CREATININE Specimen Type: BLOOD No comment entered. Ordering Provider: ALLISON PARRA Report Released Date/Time: Jan 06, 2024 03:24 PM Reporting Lab: [facility] [phone] Performing Lab: [facility] [address] POC CREATININE 1.5 mg/dL 0.6-1.3 Jan 06, 2024 03:19 PM [facility] POC ABG/LACTATE Specimen Type: VENOUS BLOOD No comment entered. Ordering Provider: ALLISON PARRA Report Released Date/Time: Jan 06, 2024 03:24 PM Reporting Lab: [facility] [address] Performing Lab: [facility] [address] POC PH 7.402 7.31-7.41 POC PCO2 50.1 mm[Hg] 41-51 POC PO2 24 mm[Hg] POC TCO2 33 mmol/L 24-29 POC HCO3 31.2 mmol/L 23-28 POC BE ECT 6 mmol/L -2-3 POC SO2 41 POC LACTATE <1.6 mmol/L 0.90-1.70 Jan 06, 2024 03:14 PM [facility] EXTRA BLUE TUBE Specimen Type: PLASMA No comment entered. Ordering Provider: ROXANNE BUCKLEY Report Released Date/Time: Jan 06, 2024 03:36 PM Reporting Lab: [facility] [address] Performing Lab: [facility] [address] EXTRA BLUE TUBE RECEIVED Jan 06, 2024 03:14 PM [facility] BNP Specimen Type: PLASMA No comment entered. Ordering Provider: ROXANNE BUCKLEY Report Released Date/Time: Jan 06, 2024 03:22 PM Reporting Lab: [facility] [address] Performing Lab: [facility] [address] BNP 18 pg/mL <99 Jan 06, 2024 03:14 PM [facility] TROPONIN I, HS Specimen Type: PLASMA No comment entered. Ordering Provider: ROXANNE BUCKLEY Report Released Date/Time: Jan 06, 2024 03:22 PM Reporting Lab: [facility] [phone] Performing Lab: [facility] [address] TROPONIN I, HS <3 <35 Jan 06, 2024 03:14 PM [facility] EXTRA GOLD GEL TUBE Specimen Type: SERUM No comment entered. Ordering Provider: ROXANNE BUCKLEY Report Released Date/Time: Jan 06, 2024 03:36 PM Reporting Lab: [facility] [phone] Performing Lab: [facility] [address] EXTRA GOLD GEL TUBE RECEIVED Jan 06, 2024 03:14 PM [facility] CBC & DIFF Specimen Type: BLOOD Comment: Automated Differential Performed Ordering Provider: ROXANNE BUCKLEY Report Released Date/Time: Jan 06, 2024 03:22 PM Reporting Lab: [facility] [address] Performing Lab: [facility] [address] WBC 11.27 10*3/uL H 4.0-11.0 RBC 4.81 [...] 10*3/uL 0-0.1 Jan 06, 2024 11:57 AM [facility] BASIC METABOLIC PANEL+MG Specimen Type: PLASMA No comment entered. Ordering Provider: HITESH HOLGUIN Report Released Date/Time: Oct 07, 2023 02:47 PM Reporting Lab: [facility] [address] Performing Lab: [facility] [address] CREATININE 1.0 mg/dL 0.7-1.2 UREA NITROGEN 16 mg/dL 8-26 GLUCOSE 112 mg/dL H 70-100 SODIUM 137 mmol/L 136-145 POTASSIUM 4.1 mmol/L 3.5-5.1 CHLORIDE 101 mmol/L 98-107 CO2 26 mmol/L 22-29 CALCIUM 9.6 mg/dL 8.4-10.2 MAGNESIUM 2.4 mg/dL 1.6-2.6 ANION GAP 10 mmol/L 5-15 .CREAT EGFR(CKD-EPI) 79 >60 Dec 30, 2023 11:00 AM [facility] .OCCULT BLOOD(FIT) Specimen Type: FECES No comment entered. Ordering Provider: SRUTHI ANDUJAR Report Released Date/Time: Dec 30, 2023 11:00 AM Reporting Lab: [facility] [address] [facility] [address] Performing Lab: [address] [address] .OCCULT BLOOD(FIT) POSITIVE Social History: Smoking Status (Most current) and Tobacco Use (All prior to encounter date) This section includes the most current, and the historical, smoking and tobacco- related health factors from the [place] facility where the Encounter took place. Current Smoking Status This section includes the most current smoking, or tobacco-related health factor, from the [place] facility where the Encounter took place. Date/Time Current Smoking Status Comment Tasha ity Dec 19, 2020 12:07 PM [place]-TOBACCO FORMER USER [facility] Tobacco Use History This section includes a history of the smoking, or tobacco-related health factors, that were collected on or before the date of the Encounter. The data comes from the [place] facility where the Encounter took place. Date/Time Smoking Status/Tobacco Use Comment F acility Dec 19, 2020 12:07 PM [place]-TOBACCO QUIT 5 TO < 15 YRS [facility] Aug 02, 2015 09:49 AM CURRENT TOBACCO USER [facility] Jun 06, 2014 08:51 AM CURRENT TOBACCO USER [facility] May 04, 2013 09:29 AM CURRENT TOBACCO USER [facility] Apr 24, 2012 07:40 AM CURRENT TOBACCO USER [facility] Advance Directives: All historical and current Section Date Range: From patient's date of to the date document was created. This section includes ALL of a patient's completed or amended [place] Advance and Rescinded Directives. The entries below indicate that a directive exists for the patient, but an actual copy is not included with this document. The data comes from all [place] facilities. Date Advance Directives Provider Source Jan 02, 2023 STATE-AUTHORIZED PORTABLE ORDERS [facility] [facility] Radiology Reports: +/- 30 days of [...] the Encounter. The data comes from all [place] treatment facilities. 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 (Case [id number] COMPLETE) MRI NECK/FACE/ORBIT W/CONTRAST (MRI Detailed) CPT:12534 Contrast Media : Gadolinium Clinical History: Per [...] pager listed below: User placing orders pager: [phone] LAST CREATININE 1.2 (10/07/23) Allergies: Patient has answered NKA Report Status: Verified Date Reported: JAN 09, 2024 Date Verified: JAN 09, 2024 Community Director E-Sig:/ES/OSBALDO RODGERS MD Report: MRI BRAINBRAINSTEM W [...] Primary Interpreting Staff: OSBALDO RODGERS MD, RADIOLOGIST (Community Director) /[facility] OSBALDO RODGERS [facility] Jan 06, 2024 03:24 PM CHEST 1 VIEW: GILDA CARRILLO RAY [id number] -1950 M Exm Date: JAN 06, 2024@15:24 Req Phys: ANNI BUCKLEY Pat Loc: [facility] EMERGENCY DEPT WALK-IN (Re Img Loc: MAIN X-RAY Service: [place] [address] (Case [id number] COMPLETE) CHEST 1 VIEW (RAD Detailed) CPT:21377 Proc Modifiers : PORTABLE EXAM Reason for [...] 06, 2024 Date Verified: JAN 06, 2024 Community Director E-Sig:/ES/BHARAT PARKER MD Report: EXAMINATION: CHEST 1 [...] Primary Interpreting Staff: BHARAT PARKER MD, RADIOLOGIST (Community Director) /RTS BHARAT PARKER [facility] Encounter Notes: All associated encounter notes This section contains the clinical notes associated to the Encounter. Date/Time Encounter Note(s) Provider Source Jan 13, 2024 04:07 PM NO SHOW NOTE: LOCAL TITLE: NO SHOW/CANCELLATION CLINIC NOTE STANDARD TITLE: NO SHOW NOTE DATE OF NOTE: JAN 13, 2024@16:07 ENTRY DATE: JAN 13, 2024@16:07:50 AUTHOR: MIKE DUTTON EXP COSIGNER: URGENCY: STATUS: COMPLETED SUBJECT: nutrition NO SHOW/CANCELLATION CLINIC NOTE Has ADDENDA Hume not seen for scheduled appointment due to: No Show Called at scheduled nutrition appt time. Left message. RD called again in attempt to connect, left clinic # to r/s. No show letter sent. Appointment Rescheduled: No MSA, please change appt to no show, as appropriate. Please review patient chart and medications for renewal needs (if appropriate). /mateo/ MIKE DUTTON MS, RD, LD Clinical Dietitian Signed: 01/13/2024 16:08 Receipt Acknowledged By: 01/14/2024 08:32 /es/ [facility] 01/20/2024 ADDENDUM STATUS: COMPLETED Hume declined to r/s egg processor phone call at this time /mateo/ [facility] Signed: 01/20/2024 10:23 MIKE DUTTON OC
--- OUTSIDE RECORDS SUMMARY | 2024-03-25 10:39 | XMS_ITS | Encounter Summary ---
Author Name [facility] [place] [facility] [place] [facility] [place] [facility] [place] Address [address] [place] [address] Care Team Providers Care Buccaro Name Role Phone GELACIO MICHEL Primary Care [...] PART A Jul 21, 2014 PART A [id number] [phone] Miguelito CARRILLO PATIENT Selected Encounter This section [...] this document. The data comes from all [place] facilities. Date Advance Directives Provider Source Jan 02, 2023 STATE-AUTHORIZED PORTABLE ORDERS [facility]
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
--- OUTSIDE RECORDS SUMMARY | 2024-03-25 10:40 | XMS_ITS | Encounter Summary ---
Author Name Department of Vetera ns Affairs (MD) Organization Department of Vetera Affairs ([place]) Address [address] [place] [address] Care Team Providers Care Scrub Woman Name Role Phone GELACIO MICHEL Primary Care [...] PART A Jul 21, 2014 PART A [id number] Miguelito CARRILLO PATIENT Selected Encounter This section includes the information on record at MD for the Encounter. Date/Time Encounter Type Encounter Description Reason Provider Source Jan 02, 2024 09:00 AM Outpatient Encounter HT NON-VIDEO MONITORING ICD-10-CM I50.9 Heart failure, unspecified PARAS BOWDEN [facility] Encounter Template Text not used by MD Assessments - Encounter Diagnoses This section includes the primary and secondary diagnoses documented for the Encounter. Date/Time Primary/Secondary Diagnosis Diagnosis Name Provider Source Jan 19, 2024 05:45 PM PRIMARY Heart failure, unspecified ELLA BOWDEN [facility] Plan of Treatment: Future Appointments (+ 6 months) and Future Tests (+/- 45 days) The Plan of Treatment section includes future care activities for the patient [facility] This section includes future appointments and future orders which are active, pending or scheduled. Future Appointments This section includes appointments that were scheduled to occur 6 months from the date of the Encounter, up to a maximum of 20 appointments. The data comes from all [facility]. Appointment Date/Time Appointment Type Appointme nt Facility Name Jan 06, 2024 12:30 PM [facility] Jan 06, 2024 01:00 PM [place] [facility] Jan 06, 2024 02:00 [facility] Jan 06, 2024 02:45 [facility] Jan 08, 2024 07:45 PM [place] [facility] Jan 12, 2024 01:15 PM [facility] Jan 13, 2024 03:00 PM [facility]ORY - NONE [facility] Jan 21, 2024 11:30 AM [facility] Feb 04, 2024 01:30 PM [facility] Feb 04, 2024 02:30 PM [facility] Feb 11, 2024 02:30 PM [facility] Feb 12, 2024 12:30 PM [place] [facility] Feb 12, 2024 01:30 PM [facility] Feb 12, 2024 03:00 PM [facility] Feb 19, 2024 02:15 PM [facility] Feb 26, 2024 10:00 AM [facility] - NONE [facility] Mar 29, 2024 01:00 PM [facility] Mar 29, 2024 02:00 PM AM[facility]UL[facility] SUR[facility] Mar 30, 2024 08:30 AM [facility] Apr 01, 2024 10:00 AM AMBULATORY - NONE [facility] Active, Pending, and Scheduled Orders This [...] Chemi stry Order BNP PLASMA SP ONCE [facility] Lab Results: +/- 30 days of [...] Range Comment Jan 06, 2024 03:40 PM [facility] COVID-19 DIAGNOSTIC PANEL (BIOFIRE) Specimen Type: NASOPHARYNGEAL Comment: Biofire Torch (271) Ordering Provider: ROXANNE BUCKLEY Report Released Date/Time: Jan 06, 2024 03:22 PM Reporting Lab: [facility] [phone] Performing Lab: [facility] [address] C PNEUMONIAE PCR NOT DETECTED NOT DETECTED [...] NOT DETECTED Jan 06, 2024 03:22 PM [facility] POC CREATININE Specimen Type: BLOOD No comment entered. Ordering Provider: ALLISON PARRA Report Released Date/Time: Jan 06, 2024 03:24 PM Reporting Lab: [facility] [address] Performing Lab: [facility] [address] POC CREATININE 1.5 mg/dL 0.6-1.3 Jan 06, 2024 03:19 PM [facility] POC ABG/LACTATE Specimen Type: VENOUS BLOOD No comment entered. Ordering Provider: ALLISON PARRA Report Released Date/Time: Jan 06, 2024 03:24 PM Reporting Lab: [facility] [address] Performing Lab: [facility] [address] POC PH 7.402 7.31-7.41 POC PCO2 50.1 mm[Hg] 41-51 POC PO2 24 mm[Hg] POC TCO2 33 mmol/L 24-29 POC HCO3 31.2 mmol/L 23-28 POC BE ECT 6 mmol/L -2-3 POC SO2 41 POC LACTATE <1.6 mmol/L 0.90-1.70 Jan 06, 2024 03:14 PM [facility] EXTRA BLUE TUBE Specimen Type: PLASMA No comment entered. Ordering Provider: ROXANNE BUCKLEY Report Released Date/Time: Jan 06, 2024 03:36 PM Reporting Lab: [facility] [address] Performing Lab: [facility] [address] EXTRA BLUE TUBE RECEIVED Jan 06, 2024 03:14 PM [facility] BNP Specimen Type: PLASMA No comment entered. Ordering Provider: ROXANNE BUCKLEY Report Released Date/Time: Jan 06, 2024 03:22 PM Reporting Lab: [facility] [address] Performing Lab: [facility] [address] BNP 18 pg/mL <99 Jan 06, 2024 03:14 PM [facility] TROPONIN I, HS Specimen Type: PLASMA No comment entered. Ordering Provider: ROXANNE BUCKLEY Report Released Date/Time: Jan 06, 2024 03:22 PM Reporting Lab: [facility] [address] Performing Lab: [facility] [address] TROPONIN I, HS <3 <35 Jan 06, 2024 03:14 PM [facility] EXTRA GOLD GEL TUBE Specimen Type: SERUM No comment entered. Ordering Provider: ROXANNE BUCKLEY Report Released Date/Time: Jan 06, 2024 03:36 PM Reporting Lab: [facility] [address] Performing Lab: [facility] [address] EXTRA GOLD GEL TUBE RECEIVED Jan 06, 2024 03:14 PM [facility] CBC & DIFF Specimen Type: BLOOD Comment: Automated Differential Performed Ordering Provider: ROXANNE BUCKLEY Report Released Date/Time: Jan 06, 2024 03:22 PM Reporting Lab: [facility] [address] Performing Lab: [facility] [address] WBC 11.27 10*3/uL H 4.0-11.0 RBC 4.81 [...] 10*3/uL 0-0.1 Jan 06, 2024 11:57 AM [facility] BASIC METABOLIC PANEL+MG Specimen Type: PLASMA No comment entered. Ordering Provider: IHTESH HOLGUIN Report Released Date/Time: Oct 07, 2023 02:47 PM Reporting Lab: [facility] [address] Performing Lab: [facility] [address] CREATININE 1.0 mg/dL 0.7-1.2 UREA NITROGEN 16 mg/dL 8-26 GLUCOSE 112 mg/dL H 70-100 SODIUM 137 mmol/L 136-145 POTASSIUM 4.1 mmol/L 3.5-5.1 CHLORIDE 101 mmol/L 98-107 CO2 26 mmol/L 22-29 CALCIUM 9.6 mg/dL 8.4-10.2 MAGNESIUM 2.4 mg/dL 1.6-2.6 ANION GAP 10 mmol/L 5-15 .CREAT EGFR(CKD-EPI) 79 >60 Dec 30, 2023 11:00 AM [facility] .OCCULT BLOOD(FIT) Specimen Type: FECES No comment entered. Ordering Provider: SRUTHI ANDUJAR Report Released Date/Time: Dec 30, 2023 11:00 AM Reporting Lab: [facility] [address] [facility] [address] Performing Lab: [place] [address] .OCCULT BLOOD(FIT) POSITIVE HH Social History: Smoking [...] 19, 2020 12:07 PM VA-TOBACCO FORMER USER [facility] Tobacco Use History This section includes a history of the smoking, or tobacco-related health factors, that were collected on or before the date of the Encounter. The data comes from the MD facility where the Encounter took place. Date/Time Smoking Status/Tobacco Use Comment F wendi Dec 19, 2020 12:07 PM VA-TOBACCO QUIT 5 TO < 15 YRS [facility] Aug 02, 2015 09:49 AM CURRENT TOBACCO USER [facility] Jun 06, 2014 08:51 AM CURRENT TOBACCO USER [facility] May 04, 2013 09:29 AM CURRENT TOBACCO USER [facility] Apr 24, 2012 07:40 AM CURRENT TOBACCO USER [facility] Advance Directives: All historical and current Section Date Range: From patient's date of to the date document was created. This section includes ALL of a patient's completed or amended MD Advance and Rescinded Directives. The entries below indicate that a directive exists for the patient, but an actual copy is not included with this document. The data comes from all MD facilities. Date Advance Directives Provider Source Jan 02, 2023 STATE-AUTHORIZED PORTABLE ORDERS [facility] Radiology Reports: +/- 30 days of [...] 2024 08:00 PM MRI-BRAIN (P): GILDA CARRILLO [id number] -1950 M Exm Date: JAN 08, 2024@20:00 Req Phys: ROSEANN GAMA Loc: [facility] EYE RESIDENT FOL/UP (Req'g Img Loc: MRI IMAGING Service: [place] [address] (Case [id number] COMPLETE) MRI BRAINBRAINSTEM W & W/O CONTRA(MRI Detailed) CPT:62916 Contrast Media : Gadolinium Reason for Study: gradual right eye vision loss over with right optic nerve atroph (Case 2339 COMPLETE) MRI NECK/FACE/ORBIT W/CONTRAST (MRI Detailed) CPT:69556 Contrast Media : Gadolinium Clinical History: Per Joint Commission Standards, by signing this diagnostic imaging request the ordering provider confirms they have considered patients age and recent imaging history. Did the ordering provider speak with a call center consultant regarding this imaging exam? 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 Responsible provider name and phone number to notify for critical findings if other than user placing the order and pager listed below: User placing orders pager: [phone] LAST CREATININE 1.2 (10/07/23) Allergies: Patient has answered NKA Report Status: Verified Date Reported: JAN 09, 2024 Date Verified: JAN 09, 2024 Newspaper Photo Editor E-Sig:/ES/OSBALDO RODEGRS MD Report: MRI BRAINBRAINSTEM W & W/O [...] Primary Interpreting Staff: OSBALDO RODGERS MD, RADIOLOGIST (Newspaper Photo Editor) /[facility] OSBALDO RODGERS [facility] Jan 06, 2024 03:24 PM CHEST 1 VIEW: GILDA CARRILLO RAY [id number] -1950 M Exm Date: JAN 06, 2024@15:24 Req Phys: SHAINASANDYANNI Alber Pat Loc: [facility] EMERGENCY DEPT WALK-IN (Re Img Loc: MAIN X-RAY Service: [place] [address] (Case [id number] COMPLETE) CHEST 1 VIEW (RAD Detailed) CPT:97091 Proc Modifiers : PORTABLE EXAM Reason for [...] 06, 2024 Date Verified: JAN 06, 2024 Newspaper Photo Editor E-Sig:/ES/BHARAT PARKER MD Report: EXAMINATION: CHEST 1 [...] Primary Interpreting Staff: BHARAT PARKER MD, RADIOLOGIST (Newspaper Photo Editor) /BHARAT TSAI [facility] Encounter Notes: All associated encounter notes This section contains the clinical notes associated to the Encounter. Date/Time Encounter Note(s) Provider Source Jan 02, 2024 09:00 AM CARE COORDINATION HOME TELEHEALTH SUMMARIZATION NOTE: LOCAL TITLE: HT MONTHLY MONITOR NOTE STANDARD TITLE: CARE COORDINATION HOME TELEHEALTH SUMMARIZATION DATE OF NOTE: JAN 02, 2024@09:00 ENTRY DATE: JAN 19, 2024@17:44:33 AUTHOR: ELLA BOWDEN EXP COSIGNER: URGENCY: STATUS: COMPLETED The [place] is enrolled in the Home Telehealth (HT) program and continues to be monitored via HT technology. The data sent by the [place] is reviewed and analyzed by the HT staff, who provide ongoing case management and health education while communicating and collaborating with the health care team as appropriate. This note covers a total of 30 minutes for the month monitored. Month monitored: December/ ELLA BOWDEN RN Chronic Wad Impregnator/HT Signed: 01/19/2024 17:45 ELLA BOWDEN [facility]
--- OUTSIDE RECORDS SUMMARY | 2024-03-25 10:40 | XMS_ITS | Encounter Summary ---
Author Name Department of [place] Organization [place] Address [address] [place] [address] Care Team Providers Care Grid Operator Name Role Phone GELACIO MICHEL Primary [...] PART A Jul 21, 2014 PART A [id number] [phone] Miguelito CARRILLO PATIENT Selected Encounter This section includes the information on record at [place] for the Encounter. Date/Time Encounter Type Encounter Description Reason Pro vider Source Jan 14, 2024 11:24 AM Outpatient Encounter PRIMARY CARE/MEDICINE I[facility] Encounter [...] 04, 2024 01:30 PM AMBULATORY - MEDICINE [facility] Feb 04, 2024 02:30 PM AMBULATORY - MEDICINE [facility] Feb 11, 2024 02:30 PM AMBULATORY - MEDICINE [facility] Feb 12, 2024 12:30 PM AMBULATORY - NONE [facility] Feb 12, 2024 01:30 PM AMBULATORY - SURGERY [facility] Feb 12, 2024 03:00 PM AMBULATORY - SURGERY [facility] Feb 19, 2024 02:15 PM AMBULATORY - MEDICINE [facility] Feb 26, 2024 10:00 AM AMBULATORY - NONE [facility] Mar 29, 2024 01:00 PM AMBULATORY - SURGERY [facility] Mar 29, 2024 02:00 PM AMBULATORY - SURGERY [facility] Mar 30, 2024 08:30 AM AMBULATORY - REHAB MEDICIN [facility] Apr 01, 2024 10:00 AM AMBULATORY - NONE [facility] Apr 12, 2024 10:15 AM AMBULATORY - SURGERY [facility] Apr 13, 2024 01:15 PM AMBULATORY - MEDICINE [facility] Apr 13, 2024 01:30 PM AMBULATORY - MEDICINE [facility] Apr 13, 2024 02:00 PM AMBULATORY - MEDICINE [facility] Apr 15, 2024 01:45 PM AMBULATORY - SURGERY [facility] May 06, 2024 04:00 PM AMBULATORY - MEDICINE [facility] May 12, 2024 02:00 PM AMBULATORY - MEDICINE [facility] Active, Pending, and Scheduled [...] theEncounter. The data comes from all [facility]. Test Date/Time Test Type Test Details Facility Name Jan 06, 2024 12:00 AM Laboratory - Chemi stry Order BNP PLASMA SP ONCE [facility] Feb 27, 2024 12:50 PM Consult Order OT OCCUPAT IONAL THERAPY OUTPT EQUIPMENT Cons Managed Care Analyst's Choice PASHA NICHOLS Lab Results: +/- 30 [...] Feb 04, 2024 02:58 PM Reporting Lab: [facility] [address] Performing Lab: [facility] [address] CREATININE 1.4 mg/dL H 0.7-1.2 UREA NITROGEN [...] Aug 13, 2023 11:38 AM Reporting Lab: [facility] [address] Performing Lab: [facility] [address] BNP 23 pg/mL <99 Feb 04, 2024 01:40 PM [facility] BASIC METABOLIC PANEL+MG Specimen Type: PLASMA No comment entered. Ordering Provider: JACOB VIRGEN Report Released Date/Time: Aug 13, 2023 11:38 AM Reporting Lab: [facility] [address] Performing Lab: [facility] [address] CREATININE 1.2 mg/dL 0.7-1.2 UREA NITROGEN 18 mg/dL 8-26 GLUCOSE 102 mg/dL H 70-100 SODIUM 140 mmol/L 136-145 POTASSIUM 4.1 mmol/L 3.5-5.1 CHLORIDE 102 mmol/L 98-107 CO2 27 mmol/L 22-29 CALCIUM 10.0 mg/dL 8.4-10.2 MAGNESIUM 2.3 mg/dL 1.6-2.6 ANION GAP 11 mmol/L 5-15 .CREAT EGFR(CKD-EPI) 63 >60 Jan 06, 2024 03:40 PM [facility] COVID-19 DIAGNOSTIC PANEL (BIOFIRE) Specimen Type: NASOPHARYNGEAL Comment: Biofire Torch (158) Ordering Provider: ROXANNE BUCKLEY Report Released Date/Time: Jan 06, 2024 03:22 PM Reporting Lab: [facility] [address] Performing Lab: [facility] [address] C PNEUMONIAE PCR NOT DETECTED NOT DETECTED [...] NOT DETECTED Jan 06, 2024 03:22 PM [facility] POC CREATININE Specimen Type: BLOOD No comment entered. Ordering Provider: ALLISON PARRA Report Released Date/Time: Jan 06, 2024 03:24 PM Reporting Lab: [facility] [address] Performing Lab: [facility] [address] POC CREATININE 1.5 mg/dL 0.6-1.3 Jan 06, 2024 03:19 PM [facility] POC ABG/LACTATE Specimen Type: VENOUS BLOOD No comment entered. Ordering Provider: ALLISON PARRA Report Released Date/Time: Jan 06, 2024 03:24 PM Reporting Lab: [facility] [address] Performing Lab: [facility] [address] POC PH 7.402 7.31-7.41 POC PCO2 50.1 mm[Hg] 41-51 POC PO2 24 mm[Hg] POC TCO2 33 mmol/L 24-29 POC HCO3 31.2 mmol/L 23-28 POC BE ECT 6 mmol/L -2-3 POC SO2 41 POC LACTATE <1.6 mmol/L 0.90-1.70 Jan 06, 2024 03:14 PM [facility] EXTRA BLUE TUBE Specimen Type: PLASMA No comment entered. Ordering Provider: ROXANNE BUCKLEY Report Released Date/Time: Jan 06, 2024 03:36 PM Reporting Lab: [facility] [address] Performing Lab: [facility] [address] EXTRA BLUE TUBE RECEIVED Jan 06, 2024 03:14 PM [facility] BNP Specimen Type: PLASMA No comment entered. Ordering Provider: ROXANNE BUCKLEY Report Released Date/Time: Jan 06, 2024 03:22 PM Reporting Lab: [facility] [address] Performing Lab: [facility] [address] BNP 18 pg/mL <99 Jan 06, 2024 03:14 PM [facility] TROPONIN I, HS Specimen Type: PLASMA No comment entered. Ordering Provider: ROXANNE BUCKLEY Report Released Date/Time: Jan 06, 2024 03:22 PM Reporting Lab: [facility] [address] Performing Lab: [facility] [address] TROPONIN I, HS <3 <35 Jan 06, 2024 03:14 PM [facility] CBC & DIFF Specimen Type: BLOOD Comment: Automated Differential Performed Ordering Provider: ROXANNE BUCKLEY Report Released Date/Time: Jan 06, 2024 03:22 PM Reporting Lab: [facility] [address] Performing Lab: [facility] [address] WBC 11.27 10*3/uL H 4.0-11.0 RBC 4.81 [...] 10*3/uL 0-0.1 Jan 06, 2024 03:14 PM [facility] EXTRA GOLD GEL TUBE Specimen Type: SERUM No comment entered. Ordering Provider: ROXANNE BUCKLEY Report Released Date/Time: Jan 06, 2024 03:36 PM Reporting Lab: [facility] [address] Performing Lab: [facility] [address] EXTRA GOLD GEL TUBE RECEIVED Jan 06, 2024 11:57 AM [facility] BASIC METABOLIC PANEL+MG Specimen Type: PLASMA No comment entered. Ordering Provider: HITESH HOLGUIN Report Released Date/Time: Oct 07, 2023 02:47 PM Reporting Lab: [facility] [address] Performing Lab: [facility] [address] CREATININE 1.0 mg/dL 0.7-1.2 UREA NITROGEN 16 mg/dL 8-26 GLUCOSE 112 mg/dL H 70-100 SODIUM 137 mmol/L 136-145 POTASSIUM 4.1 mmol/L 3.5-5.1 CHLORIDE 101 mmol/L 98-107 CO2 26 mmol/L 22-29 CALCIUM 9.6 mg/dL 8.4-10.2 MAGNESIUM 2.4 mg/dL 1.6-2.6 ANION GAP 10 mmol/L 5-15 .CREAT EGFR(CKD-EPI) 79 >60 Dec 30, 2023 11:00 AM [facility] .OCCULT BLOOD(FIT) Specimen Type: FECES No comment entered. Ordering Provider: SRUTHI ANDUJAR Report Released Date/Time: Dec 30, 2023 11:00 AM Reporting Lab: [facility] [address] [facility] [address] Performing Lab: [address] [address] .OCCULT BLOOD(FIT) POSITIVE Social History: Smoking Status [...] 19, 2020 12:07 PM VA-TOBACCO FORMER USER [facility] Tobacco Use History This section includes a history of the smoking, or tobacco-related health factors, that were collected on or before the date of the Encounter. The data comes from the [place] facility where the Encounter took place. Date/Time Smoking Status/Tobacco Use Comment F acility Dec 19, 2020 12:07 PM [place]-TOBACCO QUIT 5 TO < 15 YRS [facility] [...] 2023 STATE-AUTHORIZED PORTABLE ORDERS [facility] Radiology Reports: +/- 30 days of [...] comes from all [place] treatment facilities. Date/Time Radiology Report Provider Source Jan 08, 2024 08:00 PM MRI-BRAIN (P): GILDA CARRILLO [id number] -1950 M Ex Date: JAN 08, 2024@20:00 Req Phys: ROSEANN GAMA Loc: [facility] EYE RESIDENT FOL/UP (Req'g Img Loc: MRI IMAGING Service: [place] [address] (Case [id number] COMPLETE) MRI BRAINBRAINSTEM W & W/O CONTRA(MRI Detailed) CPT:97506 Contrast Media : Gadolinium Reason for Study: gradual right eye vision loss over with right optic nerve atroph (Case 2339 COMPLETE) MRI NECK/FACE/ORBIT W/CONTRAST (MRI Detailed) CPT:89826 Contrast Media : Gadolinium Clinical History: Per Joint Commission Standards, by signing this diagnostic imaging request the ordering provider confirms they have considered patients age and recent imaging history. Did the ordering provider speak with a human capital consultant regarding this imaging exam? 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 Responsible provider name and phone number to notify for critical findings if other than user placing the order and pager listed below: User placing orders pager: [phone] LAST CREATININE 1.2 (10/07/23) Allergies: Patient has answered NKA Report Status: Verified Date Reported: JAN 09, 2024 Date Verified: JAN 09, 2024 Pension Fund Manager E-Sig:/ES/OSBALDO RODGERS MD Report: MRI BRAINBRAINSTEM [...] Primary Interpreting Staff: OSBALDO RODGERS MD, RADIOLOGIST (Pension Fund Manager) /[facility] OSBALDO RODGERS [facility] Jan 06, 2024 03:24 PM CHEST 1 VIEW: GILDA CARRILLO RAY [id number] -1950 M Exm Date: JAN 06, 2024@15:24 Req Phys: ANNI BUCKLEY Pat Loc: [facility] EMERGENCY DEPT WALK-IN (Re Img Loc: MAIN X-RAY Service: [place] [address] (Case [id number] COMPLETE) CHEST 1 VIEW (RAD Detailed) CPT:24381 Proc Modifiers : PORTABLE EXAM Reason for [...] 06, 2024 Date Verified: JAN 06, 2024 Pension Fund Manager E-Sig:/ES/BHARAT PARKER MD Report: EXAMINATION: CHEST [...] Primary Interpreting Staff: BHARAT PARKER MD, RADIOLOGIST (Pension Fund Manager) /BHARAT TSAI [facility] Encounter Notes: All associated encounter notes This section contains the clinical notes associated to the Encounter. Date/Time Encounter Note(s) Provider Source Jan 14, 2024 11:24 AM MEDICATION MGT NOTE: LOCAL TITLE: MEDICATION RECONCILIATION NOTE STANDARD TITLE: MEDICATION MGT NOTE DATE OF NOTE: JAN 14, 2024@11:24 ENTRY DATE: JAN 14, 2024@11:26:47 AUTHOR: GEBREKIRSTOS,SWAPNIL EXP COSIGNER: URGENCY: STATUS: COMPLETED MEDICATION RECONCILIATION [employer] [facility]/OIL SPREADER OPERATOR services Certification period 12/04/2023-02/01/2024 Active Outpatient Medications (excluding Supplies): Outpatient Medications Status ======= 1) A & D OINT APPLY LIBERALLY [...] ACTIVE MOUTH TWICE A DAY Bronchitis 12) EMPAGLIFLOZIN 25MG TAB TAKE ONE-HALF TABLET [...] ACTIVE TIMES A DAY FOR COPD/COUGH/MUCUS 17) LIDOCAINE 5% PATCH APPLY 3 PATCHES TOPICALLY EVERY ACTIVE DAY FOR PAIN. WEAR FOR ONLY 12 HOURS THEN REMOVE FOR 12 HOURS. ONE PATCH FOR EACH HIP AND ONE PATCH FOR LOW BACK 18) LORAZEPAM 1MG TAB TAKE ONE TABLET BY MOUTH ACTIVE DIRECTED ONE HOUR PRIOR TO VISIT AND ONE TABLET DURING THE VISIT FOR MRI. FOR CLAUSTROPHOBIA 19) LOSARTAN 50MG TAB TAKE ONE TABLET BY MOUTH EVERY ACTIVE MORNING FOR HEART FAILURE 20) LUBRICATING (PF) OPH OINT APPLY A SMALL AMOUNT TO ACTIVE BOTH EYES AT BEDTIME FOR DRY EYES 21) NYSTATIN 809486 UNT/GM CREAM APPLY THIN LAYER ACTIVE TOPICALLY [...] THE SKIN EVERY WEEK FOR DIABETES 26) SPIRONOLACTONE 25MG TAB TAKE ONE TABLET BY MOUTH ACTIVE EVERY DAY FOR HEART FAILURE 27) TAZAROTENE 0.1% TOP CREAM APPLY THIN [...] NEEDED FOR WOUND PREVENTION Non-VA Medications Status ======= 1) Non-VA KETOCONAZOLE SHAMPOO 2%SHAMPOO TOPICALLY ACTIVE 33 Total Medications Recently Outpatient Medications (including Supplies): DIMETHICONE 12.5% TOP CREAM APPLY AFFECTED AREA TOPICALLY THREE TIMES A WEEK HYDROPHILIC (EQV AQUAPHOR) TOP OINT APPLY SMALL AMOUNT TOPICALLY THREE TIMES A WEEK FOR DRY SKIN KERLIX 4.5IN STERILE USE 1 BANDAGE TOPICALLY DIRECTED /mateo/ SWAPNIL STANFORD LPN LICENSED PRACTICAL NURSE Signed: 01/14/2024 13:08 SWAPNIL STANFORD OC
[2024-03-25 10:51] LABS: Chloride* 100 mmol/L (96-114); Potassium* 3.4 mmol/L (3.6-5.1); Sodium* 137 mmol/L (135-149)
[2024-03-25 10:54] LABS: Anion Gap 6 mEq/L (7-15); Blood Urea Nitrogen* 14 mg/dL (7-30); Carbon Dioxide* 31 mmol/L (20-32); Est. Creatinine Clearance* 81.68; Estimated Glomerular Filt Rate 79 ml/min; Glucose* 110 mg/dL (60-115)
[2024-03-25 11:11] LABS: PCR FLU A Negative PCR FLU A (Negative); PCR FLU B Negative PCR FLU B (Negative); PCR RSV Negative PCR RSV (Negative); SARS PCR* Negative SARS-CoV-2 (Negative)
[2024-03-25 11:18] LABS: NT Pro B Type NatriureticPept* 98 pg/mL; Troponin I* < 0.01 ng/mL (0.01-0.04)
[2024-03-25] MEDS: METHYLPREDNISOLONE SOD SUCC 62.5 MG/ML (125) 125 MG IVP (11:21)
[2024-03-25] MEDS: IPRAT-ALBUT 0.5-2.5 MG/3 ML NEB 1 NEB IH ×2 (11:21→17:54)
--- NOTE | 2024-03-25 11:31 | CRLHL7_ITS ---
For Patients: As a result of the Century Cures Act, medical imaging exams and procedure reports are released immediately into your electronic medical record. You may view this report before your referring provider. If you have questions, please contact your health care provider. INDICATION: Hypoxia and shortness of breath TECHNIQUE: CT chest PE was acquired with 95 cc Isovue 370 intravenous contrast. COMPARISON: Chest CT 07/29/2022 FINDINGS: Heart and vasculature: Contrast opacification of the pulmonary arterial tree is adequate. No sign of pulmonary embolism. No pericardial effusion. Severe coronary atherosclerosis. Thoracic aorta is normal in caliber. Lungs and pleural: No pleural effusion or pneumothorax. Bronchial wall thickening with peribronchovascular nodularity within both lung bases. Separate scattered areas of discoid atelectasis. 6 millimeter pulmonary nodule right middle lobe, stable. Lymph nodes/mediastinum: No mediastinal, hilar, or axillary adenopathy. Chest wall: No masses. Upper abdomen: Moderate pancreatic atrophy. Left adrenal mass measures 3.7 centimeters, similar to the prior exam. Bones: Old left 4th, 5th and 6th rib fractures laterally. IMPRESSION: 1. No evidence of pulmonary embolus. 2. Bilateral bronchial wall thickening suggesting bronchitis with some centrilobular nodularity in the lung bases. Some of this appears chronic although an infectious bronchiolitis is possible. 3. Severe coronary atherosclerosis. 4. Indeterminate left adrenal mass although stable compared to the study of July 2022. Please note that all CT scans at this facility use dose modulation, iterative reconstruction, and/or weight-based dosing when appropriate to reduce radiation dose to as low as reasonably achievable. Dictated by Andrew Rodney MD @ 03/25/2024 12:46:12 PM (Electronically Signed)
[2024-03-25] MEDS: MIDAZOLAM HCL 1 MG/ML inj IVP (12:29)
[2024-03-25] MEDS: cefTRIAXone 1 GM in 0.9 % SODIUM CHLORIDE Mini-bag 100 ML IVPB (12:41)
[2024-03-25] MEDS: MAGNESIUM IV 2 GM/50 ML PIGGYBACK IVPB (13:12)
[2024-03-25] MEDS: FUROSEMIDE 10 MG/ML inj 40 MG IVP (13:13)
--- NOTE | 2024-03-25 13:33 | ED.NURSE ---
900 ml urine drained from catheter at time of transfer to Med/Surg.
[2024-03-25] MEDS: AZITHROMYCIN 500 MG in 0.9 % SODIUM CHLORIDE 250 ml 250 ML 255 MG IVPB (13:35)
--- NOTE | 2024-03-25 14:05 | P.DS_ITS ---
DS: Providers Provider Date Seen: 03/25/24 Date of admission: 03/25/24 13:46 Primary care physician: John Admitting Clinician: Laly Alba MD Consults: 03/25/24 14:00 Consult to Physical Therapy [CONS] Routine Comment: Reason(s) for PT Consult:: Evaluate and Treat Any Restrictions?:: No Restrictions Consult to Respiratory Therapy [CONS] Routine Comment: Reason(s) for RT Consult:: Consult Attending Physician on discharge: Laly Alba MD DS: Summary Time Spent with Patient Time attestation: Total time spent providing and/or coordinating discharge services: Exam Const: Vital Signs, click to edit/add: Vital Signs - 24 hr 03/25/24 09:31 03/25/24 09:57 03/25/24 10:00 Temperature Pulse Rate 109 H 105 H Pulse Rate [Pulse Oximeter] 112 H Respiratory Rate 20 Blood Pressure Blood Pressure [Le ft Forearm] 127/73 Pulse Oximetry 98 95 93 Oxygen Delivery Me thod Room Air BiPAP Fraction of Inspir ed Oxygen 03/25/24 10:07 03/25/24 10:15 03/25/24 10:30 Temperature Pulse Rate 104 H 106 H Pulse Rate [Pulse Oximeter] Respiratory Rate Blood Pressure Blood Pressure [Le ft Forearm] Pulse Oximetry 93 95 Oxygen Delivery Me thod Fraction of Inspir ed Oxygen 21 03/25/24 10:45 03/25/24 11:00 03/25/24 11:15 Temperature Pulse Rate 102 H 120 H 109 H Pulse Rate [Pulse Oximeter] Respiratory Rate Blood Pressure Blood Pressure [Le ft Forearm] Pulse Oximetry 93 84 L 96 Oxygen Delivery Me thod Fraction of Inspir ed Oxygen 03/25/24 11:21 03/25/24 11:30 03/25/24 11:32 Temperature Pulse Rate 107 H 103 H 103 H Pulse Rate [Pulse Oximeter] Respiratory Rate Blood Pressure 127/80 107/69 Blood Pressure [Le ft Forearm] Pulse Oximetry 99 94 93 Oxygen Delivery Me thod Fraction of Inspir ed Oxygen 03/25/24 11:45 03/25/24 12:43 03/25/24 12:45 Temperature Pulse Rate 107 H 97 94 Pulse Rate [Pulse Oximeter] Respiratory Rate Blood Pressure 117/72 Blood Pressure [Le ft Forearm] Pulse Oximetry 95 94 98 Oxygen Delivery Me thod Fraction of Inspir ed Oxygen 03/25/24 12:46 03/25/24 13:00 03/25/24 13:02 Temperature Pulse Rate 96 95 94 Pulse Rate [Pulse Oximeter] Respiratory Rate Blood Pressure 122/67 Blood Pressure [Le ft Forearm] Pulse Oximetry 98 95 94 Oxygen Delivery Me thod Fraction of Inspir ed Oxygen 03/25/24 13:02 03/25/24 13:02 03/25/24 13:02 Temperature Pulse Rate 94 94 94 Pulse Rate [Pulse Oximeter] Respiratory Rate Blood Pressure 122/67 122/67 122/67 Blood Pressure [Le ft Forearm] Pulse Oximetry 94 94 94 Oxygen Delivery Me thod Fraction of Inspir ed Oxygen 03/25/24 13:15 03/25/24 13:16 Temperature 97.0 F L Pulse Rate 96 Pulse Rate [Pulse Oximeter] Respiratory Rate Blood Pressure Blood Pressure [Le ft Forearm] Pulse Oximetry 97 Oxygen Delivery Me thod Fraction of Inspir ed Oxygen DS: Data Data Completed and Pending Labs on day of discharge: Labs from last 24 hours 03/25/24 09:54 WBC 8.93 RBC 4.80 Hgb 14.4 Hct 45.0 MCV 94 MCH 30 MCHC 32 RDW Coeff of Sharonda 13.0 Plt Count 287 Neut % (Auto) 68.1 Lymph % (Auto) 12.7 L [place] % (Auto) 7.1 Eos % (Auto) 11.3 H Baso % (Auto) 0.6 Neut # (Auto) 6.09 Lymph # (Auto) 1.10 [place] # (Auto) 0.60 Eos # (Auto) 1.00 H Baso # (Auto) 0.05 Abs Immat Gran (auto) 0.02 Imm/Tot Granulo (auto) 0.2 VBG pH 7.430 VBG pCO2 46 VBG pO2 48.6 H VBG HCO3 31 H Sodium 137 Potassium 3.4 L Chloride 100 Carbon Dioxide 31 Anion Gap 6 L BUN 14 Creatinine 1.0 Estimated Creat Clear 81.68 Estimated GFR 79 Glucose 110 Lactate 1.7 Calcium 9.0 Troponin I < 0.01 L NT-Pro-B Natriuret Pep 98 SARS-CoV-2 (PCR) Negative SARS-CoV-2 Influenza Type A (PCR) Negative PCR FLU A Influenza Type B (PCR) Negative PCR FLU B RSV (PCR) Negative PCR RSV Discharge Plan Discharge Date of Admission: 03/25/24 13:46 Attending Physician on Admission: Laly Alba Primary Care Provider: Provider,Not a Local Discharge Medications: No Action gabapentin 400 mg capsule 400 mg PO TID loratadine [Claritin] 10 mg tablet 10 mg PO DAILY metoprolol succinate 200 mg capsule,sprinkle,ER 24hr 200 mg PO Q24H furosemide 40 mg tablet 20 mg PO DAILY losartan [Cozaar] 100 mg tablet 100 mg PO DAILY tamsulosin [Flomax] 0.4 mg capsule 0.4 mg PO QHS acitretin 25 mg capsule 25 mg PO DAILY dextromethorphan-guaifenesin [Laurence-Tussin DM] 10-100 mg/5 mL liquid 10 ml PO Q8H PRN Follow Up Appointments: Provider,Not a Local [Primary Care Provider] -
--- NOTE | 2024-03-25 14:09 | PM.IMHP1 ---
Hospitalist- H&P: HPI History of Present Illness Date Seen: 03/25/24 Chief complaint: Shortness of breath Narrative: Mukesh Apple is a 73 year old male past medical history significant for COPD, not oxygen dependent, chronic diastolic heart failure on daily Lasix, edema of bilateral lower extremities due to peripheral venous insufficiency, hypertension, morbid obesity, GERD is admitted to the critical care unit for acute hypoxic respiratory failure in setting of suspected pneumonia, COPD exacerbation, complicated by chronic heart failure. Patient reports onset of worsening cough, on chronic cough, over the past several days. Noticed he could no longer bring up sputum and was developing chest congestion. Started using his rescue inhalers as well as nebulizers at home without relief. Awoke this morning unable to catch his breath. He denies recent fevers. Currently denies headache or dizziness. Denies chest pain or tightness. Reports lower extremity edema no worse than usual. Denies nausea, vomiting, diarrhea. No change in urination, chronically has a slow start to urinate. No incontinence. Has been taking all of his usual medications up until this morning. Previous smoker, quit 15 years ago. Previous heavy alcohol use, quit 2 years ago. Wishes to be a full code. Doctors at the [facility]. PCP (no specific provider) in [place]. In the ED, patient has been tachypneic, tachycardic, dyspneic. Receive nebulizer treatments per EMS prior to arrival in the ED. Was placed on BiPAP in the ED, which was removed temporarily, noting a sudden increase in dyspnea and a noted oxygen saturation of 75%. No leukocytosis. VBG pCO2 46. Troponin < 0.01. EKG shows sinus tachycardia. Triple swab negative. CTA chest negative for PE. Showing bilateral bronchial wall thickening suggesting bronchitis with some centrilobular nodularity in the lung bases. Infectious bronchiolitis is possible. Currently on BiPAP. Received ceftriaxone and azithromycin, IV methylprednisolone and IV Lasix, IV magnesium, nebs in the ED. Review of Systems Narrative: REVIEW OF SYSTEMS: Complete review of systems performed and negative unless otherwise stated in HPI or below. [facility] Medical History (Updated 03/25/24 @ 14:41 by Hannah Johnson PA-C) Pulmonary nodule ?R91.1 - Solitary pulmonary nodule (ICD-10) Lesion of lung ?R91.1 - Solitary pulmonary nodule (ICD-10) Lumbar spondylosis ?M47.816 - Spondylosis without myelopathy or radiculopathy, lumbar region (ICD-10) COPD (chronic obstructive pulmonary disease) ?J44.9 - Chronic obstructive pulmonary disease, unspecified (ICD-10) GERD (gastroesophageal reflux disease) ?K21.9 - Gastro-esophageal reflux disease without esophagitis (ICD-10) Morbid obesity ?E66.01 - Morbid (severe) obesity due to excess calories (ICD-10) Chronic diastolic heart failure ?I50.32 - Chronic diastolic (congestive) heart failure (ICD-10) Hypertension ?I10 - Essential (primary) hypertension (ICD-10) Peripheral venous insufficiency ?I87.2 - Venous insufficiency (chronic) (peripheral) (ICD-10) Surgical History Hx of decompressive lumbar laminectomy ?Z98.890 - Other specified postprocedural states (ICD-10) History of tonsillectomy ?Z90.89 - Acquired absence of other organs (ICD-10) H/O adenoidectomy ?Z90.89 - Acquired absence of other organs (ICD-10) Social History What is your current living situation?: I presently have a place to live Problems where you live: no known problems Problems where you live details: N/A In the past 12 months, utilities in danger of being shut off: no In past 12 months, lack of transportation kept you from medical appts, meetings, work, or getting things needed for daily living: no In the past 12 mos, have been you worried that your food would run out before you had money to buy more?: never true In the past 12 mos, the food you bought just didn't last and you didn't have money to buy more?: never true Non-prescribed substance use: denies use How often does anyone, including family, friends and others, physically hurt you: never How often does anyone, including family, friends and others, insult or talk down to you: never How often does anyone, including family, friends and others, threaten you with harm: never How often does anyone, including family, friends and others, scream or curse at you: never Meds Home Medications and Allergies Home Medications ?Medication ?Instructions ?Recorded ?Confirmed ?Type acitretin 25 mg capsule 25 mg PO DAILY 07/29/22 07/29/22 History dextromethorphan-guaifenesin 10 10 ml PO Q8H PRN 07/29/22 07/29/22 History mg-100 mg/5 mL oral liquid (Laurence-Tussin DM) furosemide 40 mg tablet 20 mg PO DAILY 07/29/22 07/29/22 History gabapentin 400 mg capsule 400 mg PO TID 07/29/22 07/29/22 History loratadine 10 mg tablet (Claritin) 10 mg PO DAILY 07/29/22 07/29/22 History losartan 100 mg tablet (Cozaar) 100 mg PO DAILY 07/29/22 07/29/22 History metoprolol succinate 200 mg 200 mg PO Q24H 07/29/22 07/29/22 History capsule sprinkle, ext. release 24 hr tamsulosin 0.4 mg capsule (Flomax) 0.4 mg PO QHS 07/29/22 07/29/22 History Allergies Allergy/AdvReac Type Severity Reaction Status Date / Time No Known Drug Allergies Allergy Verified 03/25/24 12:26 Exam Narrative: Exam Narrative: PHYSICAL EXAM General: Pleasant, joking with staff, conversant with BiPAP mask in place HEENT: Normocephalic, atraumatic, sclera white, EOMI, oral mucosa moist Cardiovascular: RRR. +1 pitting edema bilateral lower extremities Pulmonary: BiPAP in place. Diffusely diminished, coarse Abdominal: Soft, nondistended, NTTP Neurological: Alert, answering questions appropriately, cranial nerves intact, no focal findings Extremities: Bilateral lower extremities with +1 pitting edema, chronic rubor. AROMI. Skin: Warm, dry. Const: Vital Signs, click to edit/add: Vital Signs - 24 hr 03/25/24 09:31 03/25/24 09:57 03/25/24 10:00 Temperature Pulse Rate 109 H 105 H Pulse Rate [Pulse Oximeter] 112 H Respiratory Rate 20 Blood Pressure Blood Pressure [Le ft Forearm] 127/73 Pulse Oximetry 98 95 93 Oxygen Delivery Me thod Room Air BiPAP Fraction of Inspir ed Oxygen 03/25/24 10:07 03/25/24 10:15 03/25/24 10:30 Temperature Pulse Rate 104 H 106 H Pulse Rate [Pulse Oximeter] Respiratory Rate Blood Pressure Blood Pressure [Le ft Forearm] Pulse Oximetry 93 95 Oxygen Delivery Me thod Fraction of Inspir ed Oxygen 21 03/25/24 10:45 03/25/24 11:00 03/25/24 11:15 Temperature Pulse Rate 102 H 120 H 109 H Pulse Rate [Pulse Oximeter] Respiratory Rate Blood Pressure Blood Pressure [Le ft Forearm] Pulse Oximetry 93 84 L 96 Oxygen Delivery Me thod Fraction of Inspir ed Oxygen 03/25/24 11:21 03/25/24 11:30 03/25/24 11:32 Temperature Pulse Rate 107 H 103 H 103 H Pulse Rate [Pulse Oximeter] Respiratory Rate Blood Pressure 127/80 107/69 Blood Pressure [Le ft Forearm] Pulse Oximetry 99 94 93 Oxygen Delivery Me thod Fraction of Inspir ed Oxygen 03/25/24 11:45 03/25/24 12:43 03/25/24 12:45 Temperature Pulse Rate 107 H 97 94 Pulse Rate [Pulse Oximeter] Respiratory Rate Blood Pressure 117/72 Blood Pressure [Le ft Forearm] Pulse Oximetry 95 94 98 Oxygen Delivery Me thod Fraction of Inspir ed Oxygen 03/25/24 12:46 03/25/24 13:00 03/25/24 13:02 Temperature Pulse Rate 96 95 94 Pulse Rate [Pulse Oximeter] Respiratory Rate Blood Pressure 122/67 Blood Pressure [Le ft Forearm] Pulse Oximetry 98 95 94 Oxygen Delivery Me thod Fraction of Inspir ed Oxygen 03/25/24 13:02 03/25/24 13:02 03/25/24 13:02 Temperature Pulse Rate 94 94 94 Pulse Rate [Pulse Oximeter] Respiratory Rate Blood Pressure 122/67 122/67 122/67 Blood Pressure [Le ft Forearm] Pulse Oximetry 94 94 94 Oxygen Delivery Me thod Fraction of Inspir ed Oxygen 03/25/24 13:15 03/25/24 13:16 Temperature 97.0 F L Pulse Rate 96 Pulse Rate [Pulse Oximeter] Respiratory Rate Blood Pressure Blood Pressure [Le ft Forearm] Pulse Oximetry 97 Oxygen Delivery Me thod Fraction of Inspir ed Oxygen Hospitalist - H&P: Result Labs Labs: Short CBC 03/25/24 Range/Units 09:54 WBC 8.93 (4.50-11.00) K/uL Hgb 14.4 (13.5-17.5) gm/dL Hct 45.0 (37.0-53.0) % Plt Count 287 (140-440) K/uL BMP 03/25/24 09:54 Sodium 137 Potassium 3.4 L Chloride 100 Carbon Dioxide 31 BUN 14 Creatinine 1.0 Glucose 110 Calcium 9.0 Cardiac Enzymes 03/25/24 Range/Units 09:54 Troponin I < 0.01 L (0.01-0.04) ng/mL ECG Attestation: I personally reviewed and interpreted this ECG as follows: Interpretation: Sinus tachycardia, rate 106, QTC [address] scan - chest: Attestation: I have reviewed the pertinent imaging results. Radiologist's impression: CT chest PE was acquired with 95 cc Isovue 370 intravenous contrast. COMPARISON: Chest CT 07/29/2022 FINDINGS: Heart and vasculature: Contrast opacification of the pulmonary arterial tree is adequate. No sign of pulmonary embolism. No pericardial effusion. Severe coronary atherosclerosis. Thoracic aorta is normal in caliber. Lungs and pleural: No pleural effusion or pneumothorax. Bronchial wall thickening with peribronchovascular nodularity within both lung bases. Separate scattered areas of discoid atelectasis. 6 millimeter pulmonary nodule right middle lobe, stable. Lymph nodes/mediastinum: No mediastinal, hilar, or axillary adenopathy. Chest wall: No masses. Upper abdomen: Moderate pancreatic atrophy. Left adrenal mass measures 3.7 centimeters, similar to the prior exam. Bones: Old left 4th, 5th and 6th rib fractures laterally. IMPRESSION: 1. No evidence of pulmonary embolus. 2. Bilateral bronchial wall thickening suggesting bronchitis with some centrilobular nodularity in the lung bases. Some of this appears chronic although an infectious bronchiolitis is possible. 3. Severe coronary atherosclerosis. 4. Indeterminate left adrenal mass although stable compared to the study of July 2022. Chest x-ray: Attestation: I have reviewed the pertinent imaging results. Radiologist's impression: TUBES AND LINES: None. HEART AND MEDIASTINUM: The heart size is normal. The mediastinal contour appears normal for patient age. LUNGS AND PLEURAL SPACES: Airspace opacities at both bases, right greater than left and laterally in the right mid and basilar fran thorax. Probable pleural fluid or pleural thickening on the right. No overt congestive heart failure. OSSEOUS STRUCTURES: Age-appropriate appearance. No acute focal finding. IMPRESSION: Airspace opacities bilaterally, right greater than left. Imaging features suggest atelectasis at the left base and probably atelectasis and pleural-parenchymal scarring on the right. Chronic appearing pleural thickening or a small amount of pleural fluid is noted on the right. No overt congestive heart failure. Assessment and Plan Assessment and plan (1) Acute hypoxic respiratory failure: Problem comment: Oxygen saturation 84% in ED, 75% off BiPAP, tachypneic, dyspneic, tachycardic Suspected in setting of atypical pneumonia, COPD exacerbation. Though no overt evidence of heart failure exacerbation, will continue to manage this as well RT for pulmonary support, currently on BiPAP, wean as able Initiated on IV antibiotics, received IV magnesium, IV methylprednisolone, IV Lasix, nebs in the ED Echocardiogram and repeat CXR tomorrow. Repeat VBG in the morning Status: Acute (2) Atypical pneumonia: Problem comment: CT shows bilateral bronchial wall thickening, centrilobular nodularity in the lung bases. RSV negative Continue ceftriaxone and azithromycin as initiated in ED Mucinex b.i.d. Procalcitonin ordered, CRP 2.0 Status: Acute (3) COPD (chronic obstructive pulmonary disease): Problem comment: Not oxygen dependent. Former smoker having quit 15 years ago VBG CO2 46, serum CO2 31 RT for pulmonary support, currently on BiPAP, wean as able DuoNebs q.i.d., albuterol nebs p.r.n. Prednisone 40 mg daily x5 days, received IV methylprednisolone in ED Status: Acute (4) Chronic diastolic heart failure: Problem comment: Noted in his outside chart. I do not see an echo for review CXR read as no overt congestive heart failure. CT chest shows no pleural effusion, no pericardial effusion Will use IV Lasix in place of home oral Lasix for now Echocardiogram ordered Status: Acute (5) Pulmonary nodule: Problem comment: CT shows 6 mm pulmonary nodule right middle lobe which appears stable. Patient reports known history Outpatient follow-up with PCP Status: Acute (6) Peripheral venous insufficiency: Problem comment: With bilateral chronic lower extremity edema. Takes Lasix b.i.d. (missed this morning's dose) Status: Acute (7) Hypertension: Problem comment: Has been normotensive. Continue home medications when reviewed by pharmacy Status: Acute (8) Morbid obesity: Problem comment: BMI 40.8. Complicating above Status: Acute (9) Adrenal mass: Problem comment: CT shows Indeterminate left adrenal mass although stable compared to the study of July 2022 Outpatient follow-up with PCP Status: Acute Total Time Spent Total Time Spent: Total time spent caring for the patient today was 70 minutes. This includes time spent for the visit reviewing the chart, time spent during the visit, time spent after the visit and documentation and planning in coordination of care.
[2024-03-25 14:26] LABS: Magnesium* 2.6 mg/dL (1.5-2.6)
[2024-03-25 14:43] LABS: Procalcitonin* 0.07 ng/mL (<0.50)
[2024-03-25] MEDS: guaiFENesin 600 MG TAB.ER.12H PO ×2 (14:49→20:51)
[2024-03-25] MEDS: GABAPENTIN 100 MG CAPSULE PO ×2 (16:34→20:51)
[2024-03-25] MEDS: GABAPENTIN 300 MG CAPSULE PO ×2 (16:34→20:51)
[2024-03-25] MEDS: FUROSEMIDE 10 MG/ML inj 20 MG IVP (17:54)
[2024-03-25] MEDS: Dofetilide 250 mcg capsule PO (18:02)
[2024-03-25] MEDS: APIXABAN 5 MG TABLET PO (18:02)
--- NOTE | 2024-03-25 19:00 | PC.NURSE ---
End of shift [id number]: Pt has been A&O, afebrile and VSS this shift. He has no c/o pain. Devlin catheter intact draining clear, arpit urine. Total output in 4 hours: 1150 mL. Bilateral insp and exp wheezes heard posteriorly with diminished bases. Pt has a strong, non-productive cough. BiPAP in place on first assessment & pt tolerating well, maintaining O2 SATs > 90%. Pt requested to have BiPAP off when he was eating & then visiting with his daughter. RT visited with pt and allowed him to keep BiPAP off for the time being until he becomes SOB or until his O2 begins to drop. Pt maintained on 1L NC for the remainder of the time with this RN. He was not out of bed this shift. He denies having any dizziness, nausea or CP. Sacral mepilex applied to coccyx d/t having bilateral chronic open pressure sores on both buttocks. RN noted abrasion to right flank- pt reported he had a recent fall with no LOC. Both PIV?s in right wrist and right FA SL and C/D/I. TELE reads SR to ST with BBB and 1st degree block, rate in the 90s-100s. ?
[2024-03-25] MEDS: DOXYCYCLINE HYCLATE 100 MG PO (20:51)
[2024-03-25] MEDS: POTASSIUM CHLORIDE 10 MEQ CAPSULE ER 40 MEQ PO (20:52)
[2024-03-25] MEDS: SODIUM CHLORIDE 0.9 % (FLUSH) 10 ML SYRINGE 5 ML IVF (20:52)
[2024-03-25] MEDS: TRAZODONE HCL 50 MG TABLET PO (20:52)
[2024-03-25] MEDS: SODIUM CHLORIDE NASAL SPRAY 1 SPRAY NOSTRIL-B (20:52)
--- NOTE | 2024-03-25 23:41 | PC.NURSE ---
End of Shift ([id number]): Patient pleasant and cooperative. Afebrile. Denies pain. Turn and reposition in bed. BiPAP on while resting/sleeping. Tolerating regular diet with no nausea.
[2024-03-26] VITALS (16 sets, daily range): BP systolic 111–139; BP diastolic 61–92; PULSE 88–104; RESP 18–28; TEMP 36.4–36.8; O2SAT 89–98
[2024-03-26] MEDS: IPRAT-ALBUT 0.5-2.5 MG/3 ML NEB 1 NEB IH ×6 (00:30→21:12)
[2024-03-26] MEDS: ONDANSETRON 2 MG/ML inj 4 MG IVP ×3 (00:54→12:18)
[2024-03-26] MEDS: MAG HYDROX/ALUMINUM HYD/SIMETH 30 ML ORAL.SUSP 15 ML PO (03:24)
[2024-03-26] MEDS: PROCHLORPERAZINE 5 MG/ML VIAL 10 MG IVP (04:59)
[2024-03-26] MEDS: SODIUM CHLORIDE 0.9 % (FLUSH) 10 ML SYRINGE 5 ML IVF ×3 (05:01→21:01)
[2024-03-26] MEDS: Dofetilide 250 mcg capsule PO ×2 (05:25→17:05)
[2024-03-26] MEDS: APIXABAN 5 MG TABLET PO ×2 (05:36→18:21)
[2024-03-26 06:29] LABS: HCO3 VBG 32 mmol/L (21-28); PCO2 VBG 47 mmHG (40-50); PO2 VBG 54.2 mmHG (25-47); pH VBG 7.444 (7.32-7.43)
[2024-03-26 06:35] LABS: Hematocrit 43.6 % (37.0-53.0); Hemoglobin* 14.3 gm/dL (13.5-17.5); Mean Corpuscular HGB Conc 33 gm/dL (32-36); Mean Corpuscular Hemoglobin 31 pg (26-34); Mean Corpuscular Volume 93 fL (80-100); Platelet Count* 313 K/uL (140-440); Red Blood Count 4.69 m/uL (4.30-5.90); White Blood Count* 11.36 K/uL (4.50-11.00)
--- NOTE | 2024-03-26 06:40 | PC.NURSE ---
END OF SHIFT NOTE: PT PLEASANT AND COOPERATIVE WITH CARES. A&Ox4. C/O SOB AND N/V. PT REMAINED IN BED THIS SHIFT; TURN AND REPOSITION NEEDED FOR COMFORT AND OFF LOADING WT. VSS ON 1L NC; AFEBRILE. SHAH PATENT DRAINING YELLOW AND ALCAZAR COLORED URINE. PT HAS BEEN UP MOST OF THE NIGHT RETCHING AND VOMITING. PT STATES, I THINK IT WAS THE FISH I ATE. VOMIT WAS BILE AND PHLEGM. BIPAP REMAINED OFF D/T CONTINUOUS EPISODES OF VOMITING. SOME SCHEDULED MEDS GIVEN LATE D/T VOMITING (SEE EMAR). BED ALARM ON AND CALL LIGHT WITHIN PT?S REACH.?
[2024-03-26 06:44] LABS: Slide Review Reflex No
[2024-03-26] MEDS: FUROSEMIDE 10 MG/ML inj 40 MG IVP ×2 (06:58→14:07)
[2024-03-26 07:01] LABS: Chloride* 99 mmol/L (96-114); Potassium* 3.9 mmol/L (3.6-5.1); Sodium* 137 mmol/L (135-149)
[2024-03-26 07:04] LABS: Anion Gap 8 mEq/L (7-15); Carbon Dioxide* 30 mmol/L (20-32); Est. Creatinine Clearance* 81.68; Estimated Glomerular Filt Rate 79 ml/min
[2024-03-26 07:05] LABS: Blood Urea Nitrogen* 20 mg/dL (7-30); Calcium* 9.2 mg/dL (8.4-10.6); Glucose* 138 mg/dL (60-115)
[2024-03-26 07:08] LABS: C Reactive Protein* 2.1 mg/dL (0.5-1.0)
--- NOTE | 2024-03-26 08:00 | CRLHL7_ITS ---
For Patients: As a result of the Century Cures Act, medical imaging exams and procedure reports are released immediately into your electronic medical record. You may view this report before your referring provider. If you have questions, please contact your health care provider. INDICATION: Respiratory failure. COMPARISON: 03/25/2024, including chest radiographs and a chest CT. Chest CT dated 07/29/2022. TECHNIQUE: 1 view. FINDINGS: Medical Devices: None. Lung Volumes: Adequate inspiration. No significant atelectasis. Lungs: Unchanged bibasilar linear opacities consistent with subsegmental atelectasis and/or minor fibrosis. Pleura and Pleural spaces: Chronic blunting of the right lateral costophrenic angle consistent with pleural fibrosis as demonstrated on the chest CT of 07/29/2022. No significant pleural effusion. No pneumothorax. Mediastinum: Normal cardiomediastinal silhouette. Bony Thorax and Soft Tissues: No significant incidental findings. IMPRESSION: Stable radiographic examination of the chest. No acute cardiopulmonary process. Incidental findings described above. Dictated by Mark Cruz MD @ 03/26/2024 9:18:50 AM (Electronically Signed)
[2024-03-26] MEDS: cefTRIAXone 1 GM in 0.9 % SODIUM CHLORIDE Mini-bag 100 ML IVPB (08:41)
[2024-03-26] MEDS: DOXYCYCLINE HYCLATE 100 MG PO ×2 (09:36→21:01)
[2024-03-26] MEDS: predniSONE 20 MG TABLET 40 MG PO (09:36)
[2024-03-26] MEDS: guaiFENesin 600 MG TAB.ER.12H PO ×2 (09:36→21:01)
[2024-03-26] MEDS: POTASSIUM CHLORIDE 10 MEQ CAPSULE ER 40 MEQ PO ×3 (09:36→21:00)
[2024-03-26] MEDS: GABAPENTIN 300 MG CAPSULE PO ×4 (10:22→21:00)
[2024-03-26] MEDS: GABAPENTIN 100 MG CAPSULE PO ×4 (10:22→21:00)
[2024-03-26] MEDS: EMPAGLIFLOZIN 10 MG TABLET PO (10:23)
[2024-03-26] MEDS: PERFLUTREN LIPID MICROSPHERES 2 ML VIAL IV (12:02)
--- NOTE | 2024-03-26 12:37 | PC.NURSE ---
Nursing Care Hours: [id number] Pt this shift nauseous and dry heaving in the morning with moist cough. Unable to keep breakfast or pills down. Antiemetics given, pt cleaned up with new gown, and sat up in chair with SB with walker. Mid morning, tolerated yogurt with pills. Denies nausea at lunch time but antiemetic given prophylactically for lunch. Devlin patent, draining clear yellow with hematuria noted in tubing. Edema 1+ to LE. IV patent. ECHO with Definity done. Tele shows NSR. C/o pain to R hip, sign writer hand requested Lidocaine patch from hospitalist for pain, order pending.
--- NOTE | 2024-03-26 13:12 | P.IMPN_ITS ---
Progress Note: A&P Assessment and plan (1) COPD exacerbation: Problem details: - see COPD entry Status: Acute (2) Acute bronchitis with chronic obstructive pulmonary disease (COPD): Problem details: - see COPD entry - CT angiogram of chest obtained 03/25/2024 demonstrated the followin. No evidence of pulmonary embolus. 2. Bilateral bronchial wall thickening suggesting bronchitis with some centrilobular nodularity in the lung bases. Some of this appears chronic although an infectious bronchiolitis is possible. 3. Severe coronary atherosclerosis. 4. Indeterminate left adrenal mass although stable compared to the study of July 2022. Status: Acute (3) COPD (chronic obstructive pulmonary disease): Problem details: - 03/25/2024: Not oxygen dependent. Former smoker having quit 15 years ago VBG CO2 46, serum CO2 31 RT for pulmonary support, currently on BiPAP, wean as able DuoNebs q.i.d., albuterol nebs p.r.n. Prednisone 40 mg daily x5 days, received IV methylprednisolone in ED - 03/26/2024: No longer on BiPAP. On oxygen via nasal cannula. Responding to interventions specified. Changed from IV methylprednisolone to oral prednisone. Change from IV furosemide to his usual dose of furosemide. Continue with antibiotics, ceftriaxone and azithromycin. Status: Acute (4) Acute hypoxic respiratory failure: Problem details: - 03/25/2024: Oxygen saturation 84% in ED, 75% off BiPAP, tachypneic, dyspneic, tachycardic Suspected in setting of atypical pneumonia, COPD exacerbation. Though no overt evidence of heart failure exacerbation, will continue to manage this as well RT for pulmonary support, currently on BiPAP, wean as able Initiated on IV antibiotics, received IV magnesium, IV methylprednisolone, IV Lasix, nebs in the ED Echocardiogram and repeat CXR tomorrow. Repeat VBG in the morning - 03/26/2024: See COPD note above. Change from IV furosemide to oral furosemide. Very limited transthoracic echocardiogram obtained with minimal information due to COPD precluding adequate window to interrogate heart. Status: Acute Subjective Date Seen: 03/26/24 Interval history: Admission history of present illness: ?73 year old male past medical history significant for COPD, not oxygen dependent, chronic diastolic heart failure on daily Lasix, edema of bilateral lower extremities due to peripheral venous insufficiency, hypertension, morbid obesity, GERD is admitted to the critical care unit for acute hypoxic respiratory failure in setting of suspected pneumonia, COPD exacerbation, complicated by chronic heart failure. ?Patient reports onset of worsening cough, on chronic cough, over the past several days. Noticed he could no longer bring up sputum and was developing chest congestion. Started using his rescue inhalers as well as nebulizers at home without relief. Awoke this morning unable to catch his breath. He denies recent fevers. Currently denies headache or dizziness. Denies chest pain or tightness. Reports lower extremity edema no worse than usual. Denies nausea, vomiting, diarrhea. No change in urination, chronically has a slow start to urinate. No incontinence. Has been taking all of his usual medications up until this morning. ?Previous smoker, quit 15 years ago. Previous heavy alcohol use, quit 2 years ago. Wishes to be a full code. Doctors at the [place]. PCP (no specific provider) in [place]. ?In the ED, patient has been tachypneic, tachycardic, dyspneic. Receive nebulizer treatments per EMS prior to arrival in the ED. Was placed on BiPAP in the ED, which was removed temporarily, noting a sudden increase in dyspnea and a noted oxygen saturation of 75%. No leukocytosis. VBG pCO2 46. Troponin < 0.01. EKG shows sinus tachycardia. Triple swab negative. CTA chest negative for PE. Showing bilateral bronchial wall thickening suggesting bronchitis with some centrilobular nodularity in the lung bases. Infectious bronchiolitis is possible. ?Currently on BiPAP. Received ceftriaxone and azithromycin, IV methylprednisolone and IV Lasix, IV magnesium, nebs in the ED.? Hospital day 2. No longer on BiPAP or CPAP. On oxygen via nasal cannula. No longer as breathless as he was previously. Certainly still has dyspnea with exertion. Acknowledges he sleeps in recliner chair with head of bed elevated and legs extended, and has been doing so for a long time since a couple of back surgeries he has had in the past. Had multiple episodes of gagging and vomiting during the night. Had very little sleep. Doing better now. Tolerating oral intake now. Transferring, ambulating with assist. Still rather weak. Exam Narrative: Exam Narrative: I examine him in his hospital room. He sitting in the recliner chair at the side of his bed. Appears comfortable at rest. Respiratory rate 20 to 24 per minute. Alert and oriented x4. Cooperative. Somewhat anxious. Neck is full. Chest is barrel-shaped. Scattered rhonchi. No rales. Prolonged expiratory phase. End inspiratory wheezes. Heart tones distant but with regular rhythm. Abdomen is obese with active bowel sounds, soft, nontender. Chronic venous insufficiency with chronic skin pigmentation in association with the same. Skin otherwise intact. Capillary refill less than 3 seconds in upper and lower extremities. No focal motor neurologic deficits. Const: Vital Signs, click to edit/add: Vital Signs - 24 hr 03/25/24 13:15 03/25/24 13:16 03/25/24 14:06 Temperature 97.0 F L Pulse Rate 96 100 Pulse Rate [Apical ] Pulse Rate [Pulse Oximeter] Respiratory Rate Blood Pressure [Le ft Arm] Blood Pressure [Ri ght Arm] Pulse Oximetry 97 Oxygen Delivery Me thod Oxygen Flow Rate Fraction of Inspir ed Oxygen 03/25/24 14:10 03/25/24 14:10 03/25/24 14:10 Temperature 97.2 F L Pulse Rate Pulse Rate [Apical ] 100 Pulse Rate [Pulse Oximeter] Respiratory Rate 36 H 36 H Blood Pressure [Le ft Arm] 127/78 Blood Pressure [Ri ght Arm] Pulse Oximetry 98 98 98 Oxygen Delivery Me thod BiPAP BiPAP Oxygen Flow Rate Fraction of Inspir ed Oxygen 03/25/24 14:10 03/25/24 15:00 03/25/24 15:00 Temperature Pulse Rate 94 Pulse Rate [Apical ] 80 Pulse Rate [Pulse Oximeter] Respiratory Rate 24 Blood Pressure [Le ft Arm] Blood Pressure [Ri ght Arm] Pulse Oximetry Oxygen Delivery Me thod BiPAP Oxygen Flow Rate Fraction of Inspir ed Oxygen 03/25/24 16:00 03/25/24 16:30 03/25/24 18:00 Temperature 98.1 F 98.1 F Pulse Rate Pulse Rate [Apical ] 107 H 111 H Pulse Rate [Pulse Oximeter] Respiratory Rate 24 22 Blood Pressure [Le ft Arm] 119/71 106/73 Blood Pressure [Ri ght Arm] Pulse Oximetry 96 94 92 Oxygen Delivery Me thod Nasal Cannula Nasal Cannula Oxygen Flow Rate 5 1 1 Fraction of Inspir ed Oxygen 03/25/24 19:00 03/25/24 19:00 03/25/24 19:00 Temperature Pulse Rate 108 H Pulse Rate [Apical ] 100 Pulse Rate [Pulse Oximeter] Respiratory Rate 22 Blood Pressure [Le ft Arm] Blood Pressure [Ri ght Arm] Pulse Oximetry 91 Oxygen Delivery Me thod Nasal Cannula Oxygen Flow Rate 1 Fraction of Inspir ed Oxygen 03/25/24 19:10 03/25/24 20:00 03/25/24 22:00 Temperature 97.8 F 97.7 F Pulse Rate Pulse Rate [Apical ] 108 H 105 H Pulse Rate [Pulse Oximeter] Respiratory Rate 22 20 Blood Pressure [Le ft Arm] 112/73 109/65 Blood Pressure [Ri ght Arm] Pulse Oximetry 92 92 Oxygen Delivery Me thod Nasal Cannula BiPAP Oxygen Flow Rate 1 Fraction of Inspir ed Oxygen 0.21 03/25/24 23:45 03/25/24 23:45 03/25/24 23:45 Temperature Pulse Rate 104 H Pulse Rate [Apical ] 102 H Pulse Rate [Pulse Oximeter] Respiratory Rate 18 Blood Pressure [Le ft Arm] Blood Pressure [Ri ght Arm] Pulse Oximetry 90 Oxygen Delivery Me thod Oxygen Flow Rate Fraction of Inspir ed Oxygen 03/25/24 23:45 03/26/24 00:20 03/26/24 02:00 Temperature 98.2 F 97.5 F L Pulse Rate Pulse Rate [Apical ] 102 H 103 H Pulse Rate [Pulse Oximeter] Respiratory Rate 18 18 18 Blood Pressure [Le ft Arm] 121/61 111/66 Blood Pressure [Ri ght Arm] Pulse Oximetry 90 90 90 Oxygen Delivery Me thod Room Air Room Air BiPAP Oxygen Flow Rate Fraction of Inspir ed Oxygen 25 03/26/24 03:18 03/26/24 03:18 03/26/24 04:00 Temperature 98.0 F Pulse Rate 104 H Pulse Rate [Apical ] 104 H 98 Pulse Rate [Pulse Oximeter] Respiratory Rate 18 18 Blood Pressure [Le ft Arm] 113/68 Blood Pressure [Ri ght Arm] Pulse Oximetry 90 Oxygen Delivery Me thod Nasal Cannula Oxygen Flow Rate 1 Fraction of Inspir ed Oxygen 03/26/24 06:00 03/26/24 07:00 03/26/24 07:00 Temperature 97.9 F Pulse Rate 97 Pulse Rate [Apical ] 103 H Pulse Rate [Pulse Oximeter] Respiratory Rate 20 28 H Blood Pressure [Le ft Arm] 121/71 Blood Pressure [Ri ght Arm] Pulse Oximetry 92 91 Oxygen Delivery Me thod Nasal Cannula Nasal Cannula Oxygen Flow Rate 1 1 Fraction of Inspir ed Oxygen 03/26/24 07:42 03/26/24 07:42 03/26/24 08:00 Temperature 98.1 F Pulse Rate Pulse Rate [Apical ] 103 H 95 Pulse Rate [Pulse Oximeter] Respiratory Rate 28 H 28 H Blood Pressure [Le ft Arm] 139/92 H Blood Pressure [Ri ght Arm] Pulse Oximetry 91 91 Oxygen Delivery Me thod Nasal Cannula Oxygen Flow Rate 1 Fraction of Inspir ed Oxygen 03/26/24 10:00 03/26/24 10:40 03/26/24 11:00 Temperature 97.7 F Pulse Rate 97 Pulse Rate [Apical ] Pulse Rate [Pulse Oximeter] 89 Respiratory Rate 24 Blood Pressure [Le ft Arm] Blood Pressure [Ri ght Arm] 115/69 Pulse Oximetry 98 90 Oxygen Delivery Me thod Nasal Cannula Room Air Oxygen Flow Rate 1 Fraction of Inspir ed Oxygen 03/26/24 11:00 03/26/24 12:00 Temperature 98.3 F Pulse Rate Pulse Rate [Apical ] Pulse Rate [Pulse Oximeter] 89 92 Respiratory Rate 24 20 Blood Pressure [Le ft Arm] Blood Pressure [Ri ght Arm] 125/72 Pulse Oximetry 92 Oxygen Delivery Me thod Room Air Oxygen Flow Rate Fraction of Inspir ed Oxygen Labs Labs: Laboratory Results - last 24 hr 03/25/24 03/26/24 09:54 06:15 WBC 11.36 H RBC 4.69 Hgb 14.3 Hct 43.6 MCV 93 MCH 31 MCHC 33 Plt Count 313 VBG pH 7.444 H VBG pCO2 47 VBG pO2 54.2 H VBG HCO3 32 H Sodium 137 Potassium 3.9 Chloride 99 Carbon Dioxide 30 Anion Gap 8 BUN 20 Creatinine 1.0 Estimated Creat Clear 81.68 Estimated GFR 79 Glucose 138 H Calcium 9.2 Magnesium 2.6 C-Reactive Protein 2.0 H 2.1 H Procalcitonin 0.07 Lab Acknowledgement Test Added Imaging CT angiogram of chest: Attestation: I have reviewed the pertinent imaging results. Radiologist's impression: 1. No evidence of pulmonary embolus. 2. Bilateral bronchial wall thickening suggesting bronchitis with some centrilobular nodularity in the lung bases. Some of this appears chronic although an infectious bronchiolitis is possible. 3. Severe coronary atherosclerosis. 4. Indeterminate left adrenal mass although stable compared to the study of July 2022. Chest x-ray: Attestation: I have reviewed the pertinent imaging results. Radiologist's impression: Unchanged from yesterday. No obvious infiltrates. No pneumothorax. No effusion.
[2024-03-26] MEDS: LIDOCAINE 5% PATCH 1 PATCH TRANSDERMA (14:06)
--- NOTE | 2024-03-26 18:47 | PC.NURSE ---
End of shift [id number]: Pt has been A&O, afebrile and VSS. Pt has been back and forth requiring supplemental O2 and maintaining on RA. When he dozes, he drops down to 83-84% so he?s currently on 1L to maintain between 88-94%. He is Ax1 with 2ww and gait belt. Pt had c/o abdominal pain/tenderness earlier today r/t ongoing N/V but that has since resolved. Total emesis of 200 mL this AM. TELE was sinus arrhythmia earlier this morning and this afternoon back to reading SR-ST rate in the 90s. PIV in right FA SL and C/D/I. PIV in right hand has been removed, catheter intact. Devlin catheter is patent and draining. Urine has gone from straw-colored to iverson red back to straw-colored again, MD aware. Total output today: 3250 mL. Pt reported he has chronic right hip pain; lidocaine patch was ordered and applied. Mepilex intact to coccyx. DuoNebs were increased from q6H to q4H. Repeat CXR negative this morning. LS coarse rhonchi w/ exp wheezes posteriorly, needing a lot of encouragement to utilize the [employer]. Edema 1+ to BLE. ?
[2024-03-26] MEDS: polyethylene glycoL 3350 17 GM PACK PO (21:00)
[2024-03-26] MEDS: TRAZODONE HCL 50 MG TABLET PO (21:01)
[2024-03-27 00:15] VITALS: BP 124/80; PULSE 80; PULSE 87; RESP 18; TEMP 36.7; O2SAT 92
[2024-03-27] MEDS: MELATONIN 3 MG TABLET PO (01:44)
[2024-03-27] MEDS: IPRAT-ALBUT 0.5-2.5 MG/3 ML NEB 1 NEB IH ×6 (01:44→20:37)
[2024-03-27] MEDS: MAG HYDROX/ALUMINUM HYD/SIMETH 30 ML ORAL.SUSP 15 ML PO (01:58)
[2024-03-27 02:03] VITALS: BP 130/82; PULSE 78; RESP 20; TEMP 36.6; O2SAT 90
[2024-03-27] MEDS: Dofetilide 250 mcg capsule PO ×2 (04:19→16:25)
--- NOTE | 2024-03-27 05:34 | PC.NURSE ---
Shift note: Pt is alert and oriented. Ambulated with A1, walker and GB. Pt had difficulty sleeping, Melatonin 6mg given at 2300 which helped pt to have about 4 hours of sleep. Aluminium hydroxide given for heartburns. Pt was able maintain O2>90 when awake but tend to desaturate when sleeping. BIPAP applied at 0020 but pt removed it immediately he wake up from sleep. Attempted to have BM but not able. Mepilex at butt intact.
[2024-03-27] MEDS: FUROSEMIDE 10 MG/ML inj 40 MG IVP (06:14)
[2024-03-27] MEDS: APIXABAN 5 MG TABLET PO ×2 (06:15→18:15)
[2024-03-27 07:00] VITALS: BP 113/69; PULSE 80; PULSE 89; RESP 22; TEMP 36.1; O2SAT 90; O2SAT 91
[2024-03-27 07:02] LABS: Hematocrit 46.1 % (37.0-53.0); Hemoglobin* 14.5 gm/dL (13.5-17.5); Mean Corpuscular HGB Conc 32 gm/dL (32-36); Mean Corpuscular Hemoglobin 30 pg (26-34); Mean Corpuscular Volume 95 fL (80-100); Platelet Count* 259 K/uL (140-440); Red Blood Count 4.88 m/uL (4.30-5.90); White Blood Count* 11.16 K/uL (4.50-11.00)
[2024-03-27 07:04] LABS: Slide Review Reflex No
[2024-03-27 07:18] LABS: Chloride* 101 mmol/L (96-114); Potassium* 3.8 mmol/L (3.6-5.1); Sodium* 139 mmol/L (135-149)
[2024-03-27 07:21] LABS: Anion Gap 6 mEq/L (7-15); Blood Urea Nitrogen* 23 mg/dL (7-30); Carbon Dioxide* 32 mmol/L (20-32); Creatinine* 1.1 mg/dL (0.5-1.5); Est. Creatinine Clearance* 74.25; Estimated Glomerular Filt Rate 70 ml/min
[2024-03-27 07:22] LABS: Calcium* 9.2 mg/dL (8.4-10.6); Glucose* 102 mg/dL (60-115)
[2024-03-27] MEDS: FLUTICASONE PROPIONATE NASAL 1 SPRAY NOSTRIL-B (08:00)
[2024-03-27] MEDS: POTASSIUM CHLORIDE 10 MEQ CAPSULE ER 40 MEQ PO ×3 (08:01→20:36)
[2024-03-27] MEDS: GABAPENTIN 100 MG CAPSULE PO ×4 (08:01→20:37)
[2024-03-27] MEDS: DOXYCYCLINE HYCLATE 100 MG PO ×2 (08:01→20:37)
[2024-03-27] MEDS: SENNOSIDES/DOCUSATE TABLET 1 TAB PO (08:01)
[2024-03-27] MEDS: GABAPENTIN 300 MG CAPSULE PO ×4 (08:01→20:37)
[2024-03-27] MEDS: EMPAGLIFLOZIN 10 MG TABLET PO (08:01)
[2024-03-27] MEDS: guaiFENesin 600 MG TAB.ER.12H PO ×2 (08:01→20:37)
[2024-03-27] MEDS: predniSONE 20 MG TABLET 40 MG PO (08:01)
[2024-03-27] MEDS: SODIUM CHLORIDE 0.9 % (FLUSH) 10 ML SYRINGE 5 ML IVF ×2 (08:02→20:38)
[2024-03-27] MEDS: polyethylene glycoL 3350 17 GM PACK PO (08:02)
[2024-03-27] MEDS: cefTRIAXone 1 GM in 0.9 % SODIUM CHLORIDE Mini-bag 100 ML IVPB (08:03)
[2024-03-27 11:00] VITALS: BP 101/60; BP 103/57; PULSE 102; PULSE 92; RESP 22; TEMP 36.2; O2SAT 94
[2024-03-27] MEDS: LIDOCAINE 5% PATCH 1 PATCH TRANSDERMA (12:46)
--- NOTE | 2024-03-27 13:50 | P.IMPN_ITS ---
Progress Note: A&P Assessment and plan (1) COPD exacerbation: Problem details: - see COPD entry Status: Acute (2) Acute bronchitis with chronic obstructive pulmonary disease (COPD): Problem details: - see COPD entry - CT angiogram of chest obtained 03/25/2024 demonstrated the followin. No evidence of pulmonary embolus. 2. Bilateral bronchial wall thickening suggesting bronchitis with some centrilobular nodularity in the lung bases. Some of this appears chronic although an infectious bronchiolitis is possible. 3. Severe coronary atherosclerosis. 4. Indeterminate left adrenal mass although stable compared to the study of July 2022. Status: Acute (3) COPD (chronic obstructive pulmonary disease): Problem details: - 03/25/2024: Not oxygen dependent. Former smoker having quit 15 years ago VBG CO2 46, serum CO2 31 RT for pulmonary support, currently on BiPAP, wean as able DuoNebs q.i.d., albuterol nebs p.r.n. Prednisone 40 mg daily x5 days, received IV methylprednisolone in ED - 03/26/2024: No longer on BiPAP. On oxygen via nasal cannula. Responding to interventions specified. Changed from IV methylprednisolone to oral prednisone. Change from IV furosemide to his usual dose of furosemide. Continue with antibiotics, ceftriaxone and doxycycline. - 03/27/2024: No longer requiring oxygen via nasal cannula. Not nearly as wheezy. Tolerating increased activities. Will continue to deescalate interventions to approach home going medication regimen. Status: Acute (4) Acute hypoxic respiratory failure: Problem details: - 03/25/2024: Oxygen saturation 84% in ED, 75% off BiPAP, tachypneic, dyspneic, tachycardic Suspected in setting of atypical pneumonia, COPD exacerbation. Though no overt evidence of heart failure exacerbation, will continue to manage this as well RT for pulmonary support, currently on BiPAP, wean as able Initiated on IV antibiotics, received IV magnesium, IV methylprednisolone, IV Lasix, nebs in the ED Echocardiogram and repeat CXR tomorrow. Repeat VBG in the morning - 03/26/2024: See COPD note above. Change from IV furosemide to oral furosemide. Very limited transthoracic echocardiogram obtained with minimal information due to COPD precluding adequate window to interrogate heart. Status: Acute (5) Benign prostatic hyperplasia: Problem details: - Devlin catheter placed on presentation due to weakness and increased dyspnea with minimal exertion - will remove Devlin catheter on 03/27/2024 and continue with bedside use of urinal as he does have home Status: Acute (6) Pulmonary nodule: Problem details: CT shows 6 mm pulmonary nodule right middle lobe which appears stable. Patient reports known history Outpatient follow-up with PCP Status: Acute (7) Chronic diastolic heart failure: Problem details: Noted in his outside chart. I do not see an echo for review CXR read as no overt congestive heart failure. CT chest shows no pleural effusion, no pericardial effusion Will use IV Lasix in place of home oral Lasix for now Echocardiogram ordered Status: Acute (8) Hypertension: Problem details: Has been normotensive. Continue home medications when reviewed by pharmacy Status: Acute (9) Morbid obesity: Problem details: BMI 40.8. Complicating above Status: Acute (10) Peripheral venous insufficiency: Problem details: With bilateral chronic lower extremity edema. Takes Lasix b.i.d. Status: Acute (11) Atypical pneumonia: Problem details: CT shows bilateral bronchial wall thickening, centrilobular nodularity in the lung bases. RSV negative Continue ceftriaxone and doxycycline as initiated in ED Mucinex b.i.d. Status: Acute Plan 1. Reviewed impression and recommendations with patient. 2. Answered patient's questions to satisfaction. 3. Patient informs me he prefers to be discharged on 03/28/2024 if it is appropriate. If not then he prefers to be discharged division order technician of 03/29/2024 if appropriate. He is trying to get to a ophthalmology appointment in the early afternoon of 03/29/2024 which he has had to wait for for the past 3 months. I assured him we would try to keep this in mind but I do not know that he will be able to safely discharge until closer to the actual time of making that determination. 4. Introduced him to the idea of outpatient pulmonary rehabilitation. Will provide him with educational materials on the same at the time of discharge. Encouraged him to discuss this with his primary career development director. 5. Patient is agreeable with above stated plans and recommendations. Time Spent With Patient Total time spent: 40 minutes Subjective Date Seen: 03/27/24 Interval history: Admission history of present illness: ?73 year old male past medical history significant for COPD, not oxygen dependent, chronic diastolic heart failure on daily Lasix, edema of bilateral lower extremities due to peripheral venous insufficiency, hypertension, morbid obesity, GERD is admitted to the critical care unit for acute hypoxic respiratory failure in setting of suspected pneumonia, COPD exacerbation, complicated by chronic heart failure. ?Patient reports onset of worsening cough, on chronic cough, over the past several days. Noticed he could no longer bring up sputum and was developing chest congestion. Started using his rescue inhalers as well as nebulizers at home without relief. Awoke this morning unable to catch his breath. He denies recent fevers. Currently denies headache or dizziness. Denies chest pain or tightness. Reports lower extremity edema no worse than usual. Denies nausea, vomiting, diarrhea. No change in urination, chronically has a slow start to urinate. No incontinence. Has been taking all of his usual medications up until this morning. ?Previous smoker, quit 15 years ago. Previous heavy alcohol use, quit 2 years ago. Wishes to be a full code. [facility]. PCP (no specific provider) in [place]. ?In the ED, patient has been tachypneic, tachycardic, dyspneic. Receive nebulizer treatments per EMS prior to arrival in the ED. Was placed on BiPAP in the ED, which was removed temporarily, noting a sudden increase in dyspnea and a noted oxygen saturation of 75%. No leukocytosis. VBG pCO2 46. Troponin < 0.01. EKG shows sinus tachycardia. Triple swab negative. CTA chest negative for PE. Showing bilateral bronchial wall thickening suggesting bronchitis with some centrilobular nodularity in the lung bases. Infectious bronchiolitis is possible. ?Currently on BiPAP. Received ceftriaxone and azithromycin, IV methylprednisolone and IV Lasix, IV magnesium, nebs in the ED.? Hospital day 3: COPD exacerbation, acute on chronic bronchitis. He was treated for possible heart failure exacerbation On admission but I do not believe that he in fact had this. No longer on BiPAP, discontinue in the division order technician hours of 03/26/2024. Is no longer requiring oxygen via nasal cannula, discontinue division order technician on 03/27/2024. No longer as breathless as he was previously. Is now closer to baseline level of dyspnea with exertion. His cough is vastly improved, not productive. He is not nearly as wheezy as he was when he 1st presented. Denies nausea, vomiting, gagging. Acknowledges that when he is in his home he sleeps in recliner chair with head of bed elevated and legs extended, and has been doing so for a long time since a couple of back surgeries he has had in the past - he believes he is approaching this similar level of ability at this time. Approaching baseline level of ability to move. He is not nearly as weak as he was when he 1st presented. Still has urinary catheter in place. This was placed on admission due to his level of weakness with baseline urgent and stress urinary incontinence. He does use a urinal at home In an effort to avoid urinary incontinence. Exam Narrative: Exam Narrative: Examine him in his hospital room. Appears comfortable sitting in recliner chair at his bedside. Vision and hearing are adequate. Alert and oriented x4. Friendly and articulate and cooperative. Neck is full. No obvious JVD or hepatojugular reflux. Baseline level of chronic bilateral lower extremity venous insufficiency with hyperpigmentation. Only mild bilateral lower extremity edema. Lungs are aerating better today than they were yesterday. End inspiratory wheezes. Prolonged expiratory phase. Barrel-shaped chest. Heart tones distant with regular rhythm, normal S1-S2. Abdomen is obese with active bowel sounds, soft, nontender. No focal motor neurologic deficits. Const: Vital Signs, click to edit/add: Vital Signs - 24 hr 03/26/24 15:00 03/26/24 15:03/26/24 15:00 Temperature Pulse Rate 95 Pulse Rate [Pulse Oximeter] 93 Pulse Rate [orthos tatic sitting Puls e Oximeter] Pulse Rate [orthos tatic standing Pul se Oximeter] Respiratory Rate 22 Blood Pressure [Ri ght Arm] Blood Pressure [or thostatic sitting Right Arm] Blood Pressure [or thostatic standing Right Arm] Pulse Oximetry 91 Oxygen Delivery Me thod Oxygen Flow Rate Fraction of Inspir ed Oxygen 03/26/24 15:00 03/26/24 15:00 03/26/24 17:58 Temperature 97.9 F Pulse Rate Pulse Rate [Pulse Oximeter] 93 Pulse Rate [orthos tatic sitting Puls e Oximeter] Pulse Rate [orthos tatic standing Pul se Oximeter] Respiratory Rate 22 22 Blood Pressure [Ri ght Arm] 115/69 Blood Pressure [or thostatic sitting Right Arm] Blood Pressure [or thostatic standing Right Arm] Pulse Oximetry 91 91 Oxygen Delivery Me thod Nasal Cannula Nasal Cannula Oxygen Flow Rate 1 1 Fraction of Inspir ed Oxygen 21 03/26/24 20:35 03/26/24 20:35 03/26/24 20:35 Temperature 98.3 F Pulse Rate Pulse Rate [Pulse Oximeter] 92 92 Pulse Rate [orthos tatic sitting Puls e Oximeter] Pulse Rate [orthos tatic standing Pul se Oximeter] Respiratory Rate 20 20 Blood Pressure [Ri ght Arm] 119/78 Blood Pressure [or thostatic sitting Right Arm] Blood Pressure [or thostatic standing Right Arm] Pulse Oximetry 89 89 Oxygen Delivery Me thod Nasal Cannula Oxygen Flow Rate Fraction of Inspir ed Oxygen 03/26/24 20:35 03/26/24 20:55 03/26/24 23:44 Temperature 97.8 F Pulse Rate 95 Pulse Rate [Pulse Oximeter] 88 Pulse Rate [orthos tatic sitting Puls e Oximeter] Pulse Rate [orthos tatic standing Pul se Oximeter] Respiratory Rate 20 20 Blood Pressure [Ri ght Arm] 127/84 Blood Pressure [or thostatic sitting Right Arm] Blood Pressure [or thostatic standing Right Arm] Pulse Oximetry 89 90 Oxygen Delivery Me thod Nasal Cannula Room Air Oxygen Flow Rate Fraction of Inspir ed Oxygen 03/27/24 00:15 03/27/24 02:03 03/27/24 07:00 Temperature 97.8 F Pulse Rate 87 80 Pulse Rate [Pulse Oximeter] 78 Pulse Rate [orthos tatic sitting Puls e Oximeter] Pulse Rate [orthos tatic standing Pul se Oximeter] Respiratory Rate 20 Blood Pressure [Ri ght Arm] 130/82 Blood Pressure [or thostatic sitting Right Arm] Blood Pressure [or thostatic standing Right Arm] Pulse Oximetry 90 Oxygen Delivery Me thod Room Air Oxygen Flow Rate Fraction of Inspir ed Oxygen 03/27/24 07:00 03/27/24 07:00 03/27/24 07:00 Temperature 96.9 F L Pulse Rate Pulse Rate [Pulse Oximeter] 89 Pulse Rate [orthos tatic sitting Puls e Oximeter] Pulse Rate [orthos tatic standing Pul se Oximeter] Respiratory Rate 22 Blood Pressure [Ri ght Arm] 113/69 Blood Pressure [or thostatic sitting Right Arm] Blood Pressure [or thostatic standing Right Arm] Pulse Oximetry 90 91 91 Oxygen Delivery Me thod Room Air Room Air Oxygen Flow Rate Fraction of Inspir ed Oxygen 03/27/24 07:00 03/27/24 11:00 03/27/24 11:00 Temperature 97.2 F L Pulse Rate Pulse Rate [Pulse Oximeter] 89 92 Pulse Rate [orthos tatic sitting Puls e Oximeter] 92 Pulse Rate [orthos tatic standing Pul se Oximeter] 102 H Respiratory Rate 22 22 Blood Pressure [Ri ght Arm] 103/57 L Blood Pressure [or thostatic sitting Right Arm] 103/57 L Blood Pressure [or thostatic standing Right Arm] 101/60 Pulse Oximetry 94 Oxygen Delivery Me thod Room Air Oxygen Flow Rate Fraction of Inspir ed Oxygen Labs Labs: Laboratory Results - last 24 hr 03/27/24 06:34 WBC 11.16 H RBC 4.88 Hgb 14.5 Hct 46.1 MCV 95 MCH 30 MCHC 32 Plt Count 259 Sodium 139 Potassium 3.8 Chloride 101 Carbon Dioxide 32 Anion Gap 6 L BUN 23 Creatinine 1.1 Estimated Creat Clear 74.25 Estimated GFR 70 Glucose 102 Calcium 9.2
--- NOTE | 2024-03-27 14:32 | PC.NURSE ---
End of shift [id number]: Pt has been A&O, afebrile and VSS this shift. He is SBA with gait belt & 2ww for ambulation. Pt has c/o chronic right hip pain; adequately controlled with lidocaine patch. Pt requested PRN Miralax & Senna this morning for constipation. He had XXL hard BM this afternoon & reports feeling much better, he could not recall when his last BM was. He?s maintained on RA all shift with O2 staying > 88%. PIV in right FA SL and C/D/I; dressing secured with Coban. TELE read NSR rate in the 80s-90s this shift. Devlin discontinued @ 1245; one void of 100 mL since removal. IV Rocephin discontinued and transitioned to PO Augmentin BID. IV Lasix also discontinued and transitioned to pt?s home dose 40mg PO BID. DuoNebs changed from q4H to QID.?
[2024-03-27 16:30] VITALS: BP 108/64; PULSE 100; PULSE 94; RESP 20; TEMP 36.4; O2SAT 91; O2SAT 94
[2024-03-27 19:00] VITALS: BP 107/60; PULSE 89; RESP 20; TEMP 36.6; O2SAT 91
[2024-03-27] MEDS: TRAZODONE HCL 50 MG TABLET PO (20:37)
[2024-03-27] MEDS: FUROSEMIDE 20 MG TABLET 40 MG PO (21:44)
--- NOTE | 2024-03-27 22:28 | PC.NURSE ---
Shift note: The pt has been pleasant and cooperative; denied chest pain and short of breath; Spo2 has been in the 90s in RA throughout the shift; At HS time the patient was asked to use BIPAP I will put on at 1 am The pt was sitting in the recliner until bed time. The pt has been urinating a lot see I's and O's charting.The pt requested he takes Lasix at HS, was notified and an order for 40 mg of Lasix was received and given. No Fever or acute distress noted throughout thee night
[2024-03-28] VITALS (9 sets, daily range): BP systolic 102–130; BP diastolic 61–73; PULSE 70–95; RESP 18–28; TEMP 36.2–36.7; O2SAT 88–93
[2024-03-28] MEDS: Dofetilide 250 mcg capsule PO ×2 (04:34→15:27)
[2024-03-28] MEDS: APIXABAN 5 MG TABLET PO ×2 (05:43→17:14)
--- NOTE | 2024-03-28 07:04 | PC.NURSE ---
END OF SHIFT NOTE: PT PLEASANT AND COOPERATIVE WITH CARES. DENIES CP, SOB, N/V. PT WORE BiPAP APPROXIMATELY 1.5HR THIS SHIFT; PT REPORTS NOT ABLE TO SLEEP WHILE WEARING. MD UPDATED AND OK TO LEAVE BiPAP OFF. SPO2 88-92% ON RA. MEPILEX CHANGED TO COCCYX AND BARRIER CREAM APPLIED PER PT REQUEST. LIDOCAINE PATCH NOT PRESENT FOR REMOVAL; LATER FOUND ROLLED UP ON PT BED. PT UP IN CHAIR HALF OF NIGHT. RESTING ON AND OFF. USES CALL LIGHT APPROPRIATELY. USES URINAL AT BEDSIDE.
[2024-03-28 07:18] LABS: Hematocrit 47.7 % (37.0-53.0); Hemoglobin* 15.1 gm/dL (13.5-17.5); Mean Corpuscular HGB Conc 32 gm/dL (32-36); Mean Corpuscular Hemoglobin 30 pg (26-34); Mean Corpuscular Volume 95 fL (80-100); Platelet Count* 294 K/uL (140-440); Red Blood Count 5.05 m/uL (4.30-5.90); White Blood Count* 10.88 K/uL (4.50-11.00)
[2024-03-28 07:34] LABS: Slide Review Reflex No
[2024-03-28 07:40] LABS: Chloride* 100 mmol/L (96-114); Potassium* 3.5 mmol/L (3.6-5.1); Sodium* 139 mmol/L (135-149)
[2024-03-28 07:42] LABS: Est. Creatinine Clearance* 81.68; Estimated Glomerular Filt Rate 79 ml/min
[2024-03-28 07:43] LABS: Anion Gap 8 mEq/L (7-15); Blood Urea Nitrogen* 18 mg/dL (7-30); Calcium* 9.2 mg/dL (8.4-10.6); Carbon Dioxide* 31 mmol/L (20-32); Glucose* 102 mg/dL (60-115)
[2024-03-28] MEDS: ALBUTEROL SULFATE 2.5 MG/3 ML VIAL.NEB NEB ×2 (07:49→11:45)
[2024-03-28 07:55] LABS: NT Pro B Type NatriureticPept* 290 pg/mL
[2024-03-28] MEDS: FLUTICASONE PROPIONATE NASAL 1 SPRAY NOSTRIL-B (08:43)
[2024-03-28] MEDS: GABAPENTIN 300 MG CAPSULE PO ×4 (08:44→21:28)
[2024-03-28] MEDS: FUROSEMIDE 40 MG TABLET 80 MG PO (08:44)
[2024-03-28] MEDS: AMOXICILLIN/CLAVULANATE 875 mg/125 mg TABLET PO ×2 (08:44→17:14)
[2024-03-28] MEDS: guaiFENesin 600 MG TAB.ER.12H PO ×2 (08:45→21:28)
[2024-03-28] MEDS: IPRAT-ALBUT 0.5-2.5 MG/3 ML NEB 1 NEB IH ×4 (08:45→21:28)
[2024-03-28] MEDS: EMPAGLIFLOZIN 10 MG TABLET PO (08:45)
[2024-03-28] MEDS: predniSONE 20 MG TABLET 40 MG PO ×2 (08:45→21:29)
[2024-03-28] MEDS: GABAPENTIN 100 MG CAPSULE PO ×4 (08:45→21:30)
[2024-03-28] MEDS: DOXYCYCLINE HYCLATE 100 MG PO ×2 (08:45→21:28)
[2024-03-28] MEDS: SODIUM CHLORIDE 0.9 % (FLUSH) 10 ML SYRINGE 5 ML IVF ×2 (08:59→21:30)
[2024-03-28] MEDS: POTASSIUM CHLORIDE 10 MEQ CAPSULE ER 40 MEQ PO ×3 (08:59→21:28)
[2024-03-28] MEDS: POTASSIUM BICARB 25 MEQ EFFERVESCENT TAB PO (09:02)
--- NOTE | 2024-03-28 11:47 | CRLHL7_ITS ---
For Patients: As a result of the Century Cures Act, medical imaging exams and procedure reports are released immediately into your electronic medical record. You may view this report before your referring provider. If you have questions, please contact your health care provider. INDICATION: Dyspnea. Cough. Difficulty standing. TECHNIQUE: Frontal and lateral chest radiographs, three views. COMPARISON: Chest radiograph 03/26/2024. FINDINGS: No pneumothorax or pleural effusion. Chronic blunting of the right costophrenic angle with right basilar scarring or atelectasis, unchanged. No evidence of acute airspace disease. Stable cardiac and mediastinal contours. Upper abdomen and osseous structures as imaged show no acute abnormality. IMPRESSION: No evidence of acute cardiopulmonary disease. Dictated by Isaiah Ghosh MD @ 03/28/2024 12:32:55 PM (Electronically Signed)
--- NOTE | 2024-03-28 11:49 | P.IMPN_ITS ---
Progress Note: A&P Assessment and plan (1) Acute hypoxic respiratory failure: Problem details: Suspected in setting of atypical pneumonia, COPD exacerbation. Though no overt evidence of heart failure exacerbation, will continue to manage this as well RT for pulmonary support Initiated on IV antibiotics, received IV magnesium, IV methylprednisolone, IV Lasix, nebs in the ED then continued on IV Rocephin and then transitioned to oral augmentin and doxy and oral prednisone and oral lasix home regimen Echo didn't offer much insight given severe COPD 03/28 - attempt at ambulation caused dizziness, weakness, hypoxia. updated VBG and CXR 03/28: all baseline; lactic acid is up; will bolus Status: Acute (2) Atypical pneumonia: Problem details: CT shows bilateral bronchial wall thickening, centrilobular nodularity in the lung bases. RSV negative rec'd rocephin; now on oral augmentin and doxy Day 3 as of 03/28 Mucinex b.i.d. Status: Acute (3) Lactic acid blood increased: Problem details: 03/28 3.8. fluid bolus ordered Status: Acute (4) COPD (chronic obstructive pulmonary disease): Problem details: - 03/25/2024: Not oxygen dependent. Former smoker having quit 15 years ago VBG CO2 46, serum CO2 31 RT for pulmonary support, currently on BiPAP, wean as able DuoNebs q.i.d., albuterol nebs p.r.n. Prednisone 40 mg daily x5 days, received IV methylprednisolone in ED - 03/26/2024: No longer on BiPAP. On oxygen via nasal cannula. Responding to interventions specified. Changed from IV methylprednisolone to oral prednisone. Change from IV furosemide to his usual dose of furosemide. Continue with antib iotics, ceftriaxone and doxycycline. - 03/27/2024: No longer requiring oxygen via nasal cannula. Not nearly as wheezy. Tolerating increased activities. Will continue to deescalate interventions to approach home going medication regimen. Status: Acute (5) COPD exacerbation: Problem details: - see COPD entry Status: Acute (6) Acute bronchitis with chronic obstructive pulmonary disease (COPD): Problem details: - see COPD entry - CT angiogram of chest obtained 03/25/2024 demonstrated the followin. No evidence of pulmonary embolus. 2. Bilateral bronchial wall thickening suggesting bronchitis with some centrilobular nodularity in the lung bases. Some of this appears chronic although an infectious bronchiolitis is possible. 3. Severe coronary atherosclerosis. 4. Indeterminate left adrenal mass although stable compared to the study of July 2022. Status: Acute (7) Chronic diastolic heart failure: Problem details: -returned to his home dose of Lasix after IV diuresis -wt down almost 5 kg ECHO 03/26/24 Limited Echocardiogram performed 1. Technically very limited exam. 2. Probably normal LV size and function. 3. Probably normal RV function. 4. Valves are poorly visualized. 5. The inferior vena cava is consistent with elevated right atrial pressure. Status: Acute (8) Hypertension: Problem details: Has been normotensive. Continue home medications when reviewed by pharmacy Status: Acute (9) Peripheral venous insufficiency: Problem details: With bilateral chronic lower extremity edema. Takes Lasix b.i.d. Status: Acute (10) Pulmonary nodule: Problem details: CT shows 6 mm pulmonary nodule right middle lobe which appears stable. Patient reports known history Outpatient follow-up with PCP Status: Acute (11) Morbid obesity: Problem details: BMI 40.8. Complicating above Status: Acute (12) Benign prostatic hyperplasia: Problem details: - Devlin catheter placed on presentation due to weakness and increased dyspnea with minimal exertion - will remove Devlin catheter on 03/27/2024 and continue with bedside use of urinal as he does have home Status: Acute Subjective Date Seen: 03/28/24 Interval history: Daily Progress Note - Hospital Medicine #: 4 CC: COPD exacerbation with atypical pna/resp virus/mild CHF failure 24 HOUR UPDATE: did not tolerate bipap last night; off oxygen but desatas quickly with any ambulation; felt dizzy and dyspneic with minimal exertion Notable Labs, Micro, Rads, Interventions: White count has normalized Blood gas is stable. Very mild hypokalemia otherwise reassuring chemistries. BNP on admission 98, today 290 trop neg lactate 3.[address] and chest x-ray reviewed echo Objective: dmitry colored cheeks, audible wheezing in rounds; improved with oral lasix and nebs Vitals: see above Lungs: scattered wheeze and rhonci ext: stasis dermatitis and fluid retention noted Cardiac: S1S2. Disposition/Potential discharge - Home once improved enough to be on his own; next 24-48 hours Exam Const: Vital Signs, click to edit/add: Vital Signs - 24 hr 03/27/24 14:41 03/27/24 16:30 03/27/24 16:30 Temperature Pulse Rate 100 Pulse Rate [Pulse Oximeter] Respiratory Rate Blood Pressure [Ri ght Arm] Pulse Oximetry 94 Oxygen Delivery Me thod Fraction of Inspir ed Oxygen 21 03/27/24 16:30 03/27/24 16:30 03/27/24 16:30 Temperature 97.6 F Pulse Rate Pulse Rate [Pulse Oximeter] 94 94 Respiratory Rate 20 20 20 Blood Pressure [Ri ght Arm] 108/64 Pulse Oximetry 94 91 Oxygen Delivery Me thod Room Air Room Air Fraction of Inspir ed Oxygen 03/27/24 19:00 03/28/24 00:15 03/28/24 00:32 Temperature 97.8 F Pulse Rate 70 Pulse Rate [Pulse Oximeter] 89 80 Respiratory Rate 20 18 Blood Pressure [Ri ght Arm] 107/60 Pulse Oximetry 91 Oxygen Delivery Me thod Room Air Fraction of Inspir ed Oxygen 03/28/24 04:38 03/28/24 07:30 03/28/24 07:30 Temperature 97.4 F L Pulse Rate Pulse Rate [Pulse Oximeter] 77 Respiratory Rate 20 26 H Blood Pressure [Ri ght Arm] 111/71 Pulse Oximetry 90 92 92 Oxygen Delivery Me thod Room Air Room Air Fraction of Inspir ed Oxygen 03/28/24 07:55 03/28/24 10:02 Temperature 97.1 F L Pulse Rate Pulse Rate [Pulse Oximeter] 94 Respiratory Rate 26 H Blood Pressure [Ri ght Arm] 130/73 Pulse Oximetry 93 Oxygen Delivery Me thod Room Air Fraction of Inspir ed Oxygen 21 Labs Labs: Laboratory Results - last 24 hr 03/28/24 06:45 WBC 10.88 RBC 5.05 Hgb 15.1 Hct 47.7 MCV 95 MCH 30 MCHC 32 Plt Count 294 Sodium 139 Potassium 3.5 L Chloride 100 Carbon Dioxide 31 Anion Gap 8 BUN 18 Creatinine 1.0 Estimated Creat Clear 81.68 Estimated GFR 79 Glucose 102 Calcium 9.2 NT-Pro-B Natriuret Pep 290
[2024-03-28 12:21] LABS: HCO3 VBG 27 mmol/L (21-28); PCO2 VBG 37 mmHG (40-50); PO2 VBG 61.8 mmHG (25-47); pH VBG 7.479 (7.32-7.43)
[2024-03-28 12:24] LABS: Lactate* 3.9 mmol/L (0.5-1.9)
[2024-03-28] MEDS: LIDOCAINE 5% PATCH 1 PATCH TRANSDERMA (12:41)
[2024-03-28 13:34] LABS: Troponin I* < 0.01 ng/mL (0.01-0.04)
[2024-03-28] MEDS: 0.9 % SODIUM CHLORIDE 1000 ml 1,000 ML 250 ML IV (15:03)
[2024-03-28] MEDS: BUDESONIDE 0.5 MG/2ML NEB NEB ×2 (15:17→21:27)
[2024-03-28] MEDS: FUROSEMIDE 40 MG TABLET PO (15:28)
[2024-03-28] MEDS: diphenhydrAMINE 25 MG CAPSULE PO (18:53)
--- NOTE | 2024-03-28 19:25 | PC.NURSE ---
shift note: sats RA 88-93%. LS this am course with insp/exp wheezing. pt received prn albuterol neb. LS reassessed to have wheezing and rhonchi throughout but pt able to expectorate lg amounts of thick clear phlegm with cough. LS this afternoon with wheezing in bases. BP wnl. pt afeb. IV patent. drsg to lt buttock intact.
[2024-03-28 20:04] LABS: Lactate* 3.3 mmol/L (0.5-1.9)
[2024-03-28] MEDS: TRAZODONE HCL 50 MG TABLET PO (21:28)
[2024-03-28] MEDS: ACETAMINOPHEN 325 MG TABLET 975 MG PO (22:23)
[2024-03-29] VITALS (7 sets, daily range): BP systolic 113–136; BP diastolic 74–85; PULSE 68–101; RESP 18–20; TEMP 36.2–36.5; O2SAT 90–94
[2024-03-29] MEDS: Dofetilide 250 mcg capsule PO (04:21)
[2024-03-29] MEDS: APIXABAN 5 MG TABLET PO (06:20)
[2024-03-29 06:34] LABS: HCO3 VBG 27 mmol/L (21-28); PCO2 VBG 40 mmHG (40-50); PO2 VBG 48.9 mmHG (25-47); pH VBG 7.448 (7.32-7.43)
[2024-03-29 06:47] LABS: Hematocrit 44.4 % (37.0-53.0); Hemoglobin* 14.3 gm/dL (13.5-17.5); Mean Corpuscular HGB Conc 32 gm/dL (32-36); Mean Corpuscular Hemoglobin 30 pg (26-34); Mean Corpuscular Volume 94 fL (80-100); Platelet Count* 288 K/uL (140-440); Red Blood Count 4.75 m/uL (4.30-5.90); White Blood Count* 10.57 K/uL (4.50-11.00)
[2024-03-29 06:52] LABS: Slide Review Reflex No
[2024-03-29 06:57] LABS: Chloride* 104 mmol/L (96-114)
[2024-03-29 06:58] LABS: Potassium* 4.8 mmol/L (3.6-5.1); Sodium* 137 mmol/L (135-149)
[2024-03-29 07:00] LABS: Creatinine* 0.9 mg/dL (0.5-1.5); Est. Creatinine Clearance* 81.68; Estimated Glomerular Filt Rate 90 ml/min
[2024-03-29 07:01] LABS: Anion Gap 7 mEq/L (7-15); Blood Urea Nitrogen* 22 mg/dL (7-30); Carbon Dioxide* 26 mmol/L (20-32); Glucose* 134 mg/dL (60-115)
[2024-03-29 07:02] LABS: Calcium* 9.1 mg/dL (8.4-10.6)
[2024-03-29 07:04] LABS: C Reactive Protein* 0.7 mg/dL (0.5-1.0)
--- NOTE | 2024-03-29 07:36 | PC.NURSE ---
END OF SHIFT NOTE: PT PLEASANT AND COOPERATIVE WITH CARES. A&Ox3. DENIES CP, SOB, N/V. AMBULATES WITH WALKER AND SBA. VSS ON RA; AFEBRILE. SPO2 88-92% ON RA. REPORTS 3/10 PAIN TO CHRONIC BUTTOCK ULCERS. BARRIER CREAM APPLIED; MEPILEX CLEAN DRY INTACT. PT SLEPT WELL OVERNIGHT. CALL LIGHT WITHIN PT?S REACH
[2024-03-29] MEDS: POTASSIUM CHLORIDE 10 MEQ CAPSULE ER 40 MEQ PO (08:37)
[2024-03-29] MEDS: GABAPENTIN 100 MG CAPSULE PO ×2 (08:37→12:07)
[2024-03-29] MEDS: FUROSEMIDE 40 MG TABLET 80 MG PO (08:38)
[2024-03-29] MEDS: predniSONE 20 MG TABLET 40 MG PO (08:38)
[2024-03-29] MEDS: IPRAT-ALBUT 0.5-2.5 MG/3 ML NEB 1 NEB IH (08:39)
[2024-03-29] MEDS: EMPAGLIFLOZIN 10 MG TABLET PO (08:39)
[2024-03-29] MEDS: BUDESONIDE 0.5 MG/2ML NEB NEB (08:39)
[2024-03-29] MEDS: DOXYCYCLINE HYCLATE 100 MG PO ×2 (08:39→12:01)
[2024-03-29] MEDS: GABAPENTIN 300 MG CAPSULE PO ×2 (08:39→12:07)
[2024-03-29] MEDS: guaiFENesin 600 MG TAB.ER.12H PO (08:39)
[2024-03-29] MEDS: AMOXICILLIN/CLAVULANATE 875 mg/125 mg TABLET PO ×2 (08:40→12:00)
[2024-03-29] MEDS: SODIUM CHLORIDE NASAL SPRAY 1 SPRAY NOSTRIL-B (08:44)
[2024-03-29] MEDS: FLUTICASONE PROPIONATE NASAL 1 SPRAY NOSTRIL-B (08:45)
--- NOTE | 2024-03-29 09:30 | RESP.RT ---
Patient sitting up in chair, on room air, Breathing regular/easy with some purse lip breathing, appears comfortable, SaO2 94%, HR 80-90/minute. Patient refused use of BiPAP, slept in chair. BBS with coarse crackles and rhonchi inspiratory/expiratory clearing with cough and use of Aerobika, good air movement. No wheezing noted at this time. Patient using Aerobika well, good effort and chest shake. Good productive cough post treatment, creme colored secretions. Patient walked 50 feet on room air with walker, did well, resting SaO2 94%, during walk patient SaO2 decreased to 92%, patient stated slightly Short of Breath, on return to chair SaO2 increased to 94% in 20 seconds with a few deep breaths. Patient stated he does not walk any distance. Does Home nebulizer treatments of Albuterol, at hospital getting DuoNeb and Budesonide. Discussed with patient cleaning procedures for respiratory equipment, home nebulizer machine, [place] nebulizers, mouth pieces, and Aerobika.
--- NOTE | 2024-03-29 14:08 | PM.DS1 ---
DS: Providers Provider Date Seen: 03/29/24 Date of admission: 03/25/24 14:01 Primary care physician: Not a Local Provider Admitting Clinician: Laly Alba MD Consults: 03/25/24 14:00 Consult to Physical Therapy [CONS] Routine Comment: Reason(s) for PT Consult:: Evaluate and Treat Any Restrictions?:: No Restrictions Consult to Respiratory Therapy [CONS] Routine Comment: Reason(s) for RT Consult:: Consult Attending Physician on discharge: Laly Alba MD Date of Discharge: 03/29/24 DS: Diagnosis Discharge Diagnosis (1) Acute hypoxic respiratory failure: Status: Acute Problem details: Suspected in setting of atypical pneumonia, COPD exacerbation. Though no overt evidence of heart failure exacerbation, will continue to manage this as well RT for pulmonary support Initiated on IV antibiotics, received IV magnesium, IV methylprednisolone, IV Lasix, nebs in the ED then continued on IV Rocephin and then transitioned to oral augmentin and doxy and oral prednisone and oral lasix home regimen Echo didn't offer much insight given severe COPD 03/28 - attempt at ambulation caused dizziness, weakness, hypoxia. updated VBG and CXR 03/28: all baseline; lactic acid is up; will bolus 03/29 - patient felt much better. Was able to ambulate without desaturation or dizziness/weakness. Discharged home. (2) Atypical pneumonia: Status: Acute Problem details: CT shows bilateral bronchial wall thickening, centrilobular nodularity in the lung bases. RSV negative Discharged on doxy and Augmentin, prednisone taper (3) Acute bronchitis with chronic obstructive pulmonary disease (COPD): Status: Acute Problem details: -see #2. (4) Lactic acid blood increased: Status: Acute Problem details: 03/28 3.8. Improved with fluids (5) COPD (chronic obstructive pulmonary disease): Status: Acute Problem details: - 03/25/2024: Not oxygen dependent. Former smoker having quit 15 years ago VBG CO2 46, serum CO2 31 RT for pulmonary support, currently on BiPAP, wean as able DuoNebs q.i.d., albuterol nebs p.r.n. Prednisone 40 mg daily x5 days, received IV methylprednisolone in ED - 03/26/2024: No longer on BiPAP. On oxygen via nasal cannula. Responding to interventions specified. Changed from IV methylprednisolone to oral prednisone. Change from IV furosemide to his usual dose of furosemide. Continue with antibiotics, ceftriaxone and doxycycline. - 03/27/2024: No longer requiring oxygen via nasal cannula. Not nearly as wheezy. Tolerating increased activities. Will continue to deescalate interventions to approach home going medication regimen. -03/29 - discharge instructions: Nebulize Atrovent at least to b.i.d. if not as often as q.6. Albuterol Q 2 p.r.n. complete antibiotics prednisone taper. Budesonide inhaler ordered from the [facility]. I highly recommended that he follow up with the [facility] and pursue a pulmonary medicine consult as well as a follow-up sleep study. (6) COPD exacerbation: Status: Acute Problem details: - see COPD entry (7) Chronic diastolic heart failure: Status: Acute Problem details: -returned to his home dose of Lasix after IV diuresis -wt down almost 5 kg ECHO 03/26/24 Limited Echocardiogram performed 1. Technically very limited exam. 2. Probably normal LV size and function. 3. Probably normal RV function. 4. Valves are poorly visualized. 5. The inferior vena cava is consistent with elevated right atrial pressure. (8) Hypertension: Status: Acute Problem details: Has been normotensive. Continue home medications when reviewed by pharmacy (9) Peripheral venous insufficiency: Status: Acute Problem details: With bilateral chronic lower extremity edema. Takes Lasix b.i.d. (10) Adrenal mass: Status: Acute Problem details: CT shows Indeterminate left adrenal mass although stable compared to the study of July 2022 Outpatient follow-up with PCP (11) Morbid obesity: Status: Acute Problem details: BMI 40.8. Complicating above (12) Pulmonary nodule: Status: Acute Problem details: CT shows 6 mm pulmonary nodule right middle lobe which appears stable. Patient reports known history Outpatient follow-up with PCP (13) Benign prostatic hyperplasia: Status: Acute Problem details: - Devlin catheter placed on presentation due to weakness and increased dyspnea with minimal exertion - will remove Devlin catheter on 03/27/2024 and continue with bedside use of urinal as he does have home DS: Summary Hospital Course Hospital Course: FINAL DIAGNOSIS/FOLLOW UP ISSUES: COPD exacerbation-discharged on doxycycline and Augmentin. Prednisone taper. I highly recommended a referral to Pulmonary Medicine and a follow-up sleep study. Pulmonary and adrenal nodules were noted during hospitalization; both were felt to be stable from previous imaging but both warrant outpatient surveillance BRIEF HOSPITAL COURSE: Patient was admitted for 5 days. Synopsis of acute inpatient issues are outlined above. Chronic medical conditions with notable findings outlined above. Mukesh was treated as a COPD exacerbation with a mild heart failure exacerbation. He has diastolic heart failure from long standing high blood pressure. He also likely has untreated obstructive sleep apnea. We attempted did stabilize him on BiPAP at night and he did not tolerate this. Ultimately he was treated with antibiotics, IV Lasix, steroids and worked with RT on proper pulmonary hygiene. When he discharged he was on room air satting between 91 and 93% with ambulation. He felt much better. Of note on his imaging a small pulmonary nodule and small adrenal mass were noted. These were considered stable by previous imaging. I have put this in the discharge summary so that continued outpatient surveillance is pursued. DISCHARGE MEDICATIONS: See Reconciled list - SIGNIFICANT CHANGES: I added budesonide inhaler to his Atrovent and albuterol nebs. Specific instructions to the patient and follow-up are outlined below. REVIEW OF SYSTEMS No new chest pain or dyspnea Pain controlled No voiding difficulties Tolerating diet challenge PHYSICAL EXAM: CONSTITUTIONAL: Comfortable, no air hunger. VITAL SIGNS: see record. HEENT: Normocephalic, atraumatic. PERRL, EOMI, conjunctivae pink, no scleral icterus. Ears and nose externally normal. Pharynx normal. NECK: No JVD. No carotid bruit, no thyromegaly, no adenopathy. CHEST: Scattered wheeze, bibasilar rhonchi HEART: S1 and S2 normal. Edema 1+ ABDOMEN: Soft, nontender. Normal bowel sounds. MUSCULOSKELETAL: No gross joint deformity or swelling. NEURO: Cranial nerves intact. Grossly intact. No asymmetric findings. SKIN: No rashes, petechiae, concerning changes PSYCHIATRIC: Mood euthymic. DISPOSITION: Home with son Time spent on discharge 37 minutes. Time Spent with Patient Time attestation: Total time spent providing and/or coordinating discharge services: Exam Const: Vital Signs, click to edit/add: Vital Signs - 24 hr 03/28/24 15:00 03/28/24 15:00 03/28/24 15:00 Temperature 97.4 F L Pulse Rate 95 Pulse Rate [Pulse Oximeter] 95 Respiratory Rate 24 Blood Pressure [Ri ght Arm] 102/61 Pulse Oximetry 91 90 Oxygen Delivery Me thod Room Air 03/28/24 15:00 03/28/24 15:00 03/28/24 21:16 Temperature Pulse Rate 86 Pulse Rate [Pulse Oximeter] 90 Respiratory Rate 24 24 Blood Pressure [Ri ght Arm] Pulse Oximetry 90 Oxygen Delivery Me thod Room Air 03/28/24 21:25 03/28/24 21:25 03/28/24 21:25 Temperature 98.0 F Pulse Rate Pulse Rate [Pulse Oximeter] 89 89 Respiratory Rate 22 22 Blood Pressure [Ri ght Arm] 109/70 Pulse Oximetry 90 90 Oxygen Delivery Me thod Room Air 03/28/24 21:25 03/29/24 01:30 03/29/24 04:30 Temperature 97.1 F L 97.5 F L Pulse Rate Pulse Rate [Pulse Oximeter] 68 82 Respiratory Rate 22 20 18 Blood Pressure [Ri ght Arm] 131/85 136/79 Pulse Oximetry 90 90 90 Oxygen Delivery Me thod Room Air Room Air Room Air 03/29/24 07:03 03/29/24 07:30 03/29/24 07:45 Temperature Pulse Rate 78 Pulse Rate [Pulse Oximeter] 82 Respiratory Rate 20 Blood Pressure [Ri ght Arm] Pulse Oximetry 93 Oxygen Delivery Me thod 03/29/24 07:45 03/29/24 07:45 03/29/24 09:27 Temperature 97.6 F Pulse Rate Pulse Rate [Pulse Oximeter] 82 Respiratory Rate 20 20 20 Blood Pressure [Ri ght Arm] 123/74 Pulse Oximetry 93 93 94 Oxygen Delivery Ks thod Room Air Room Air Room Air 03/29/24 11:30 Temperature 97.7 F Pulse Rate Pulse Rate [Pulse Oximeter] 101 H Respiratory Rate 18 Blood Pressure [Ri ght Arm] 113/77 Pulse Oximetry 93 Oxygen Delivery Me thod Room Air DS: Data Data Completed and Pending Labs on day of discharge: Labs from last 24 hours 03/29/24 03/28/24 06:05 19:59 WBC 10.57 RBC 4.75 Hgb 14.3 Hct 44.4 MCV 94 MCH 30 MCHC 32 Plt Count 288 VBG pH 7.448 H VBG pCO2 40 VBG pO2 48.9 H VBG HCO3 27 Sodium 137 Potassium 4.8 Chloride 104 Carbon Dioxide 26 Anion Gap 7 BUN 22 Creatinine 0.9 Estimated Creat Clear 81.68 Estimated GFR 90 Glucose 134 H Lactate 2.0 H 3.3 H Calcium 9.1 C-Reactive Protein 0.7 Discharge Plan Discharge Disposition: Home, Self-Care Date of Admission: 03/25/24 14:01 Attending Provider on Discharge: Laly Alba Primary Care Provider: Provider,Not a Local Condition: Improved Anticipated Discharge Date/Time: 03/28/24 13:00 Discharge Medications: New sennosides-docusate sodium [Stool Softener-Laxative] 8.6-50 mg Tablet 1 tab PO DAILY 30 Days Qty: 30 0RF doxycycline hyclate 100 mg Tablet 100 mg PO BID 7 Days Qty: 14 0RF amoxicillin-pot clavulanate 875-125 mg Tablet 1 tab PO BIDWM 7 Days Qty: 14 0RF prednisone 20 mg tablet 20 mg PO DAILY Qty: 16 0RF Rx Instructions: 16 TABS: Take two tabs each morning for the next four days. Then, take one tab daily for five days, then take 1/2 tab for six days. Lastly, take the other bottle of prednisone (5mg) and take one tab for five days. prednisone 5 mg tablet 5 mg PO DAILY Qty: 5 0RF Rx Instructions: Take after 20mg taper bottle is finished ipratropium-albuterol 0.5 mg-3 mg(2.5 mg base)/3 mL solution for nebulization 3 ml inhalation Q6H PRNQty: 180 0RF Rx Instructions: send out overnight to patient -- all meds received this weekend need to be expressed overnight delivery to patient. budesonide 0.5 mg/2 mL suspension for nebulization 0.5 mg inhalation BID Qty: 120 0RF Continued albuterol sulfate [Ventolin HFA] 90 mcg/actuation HFA aerosol inhaler 2 inh inhalation QID PRN acetaminophen 500 mg tablet 1,000 mg PO TID albuterol sulfate 2.5 mg /3 mL (0.083 %) solution for nebulization 2.5 mg inhalation Q4H PRN apixaban 5 mg tablet 5 mg PO BID carboxymethylcellulose sodium 1 % drops, liquid gel 1 drp ophthalmic (eye) QID PRN dofetilide 250 mcg capsule 250 mcg PO Q12H empagliflozin 25 mg tablet 12.5 mg PO DAILY fluticasone propionate [Allergy Relief (fluticasone)] 50 mcg/actuation spray,suspension 2 spray intranasal BID Rx Instructions: administer into each nostril guaifenesin [Mucinex] 600 mg tablet extended release 12hr 1,200 mg PO TID lidocaine [Tridacaine] 5 % adhesive patch,medicated 3 patch topical DAILY PRN Rx Instructions: leave on most painful area for up to 12 hrs polyethylene glycol 3350 [Miralax] 17 gram/dose powder 17 g PO DAILY PRN potassium chloride 20 mEq tablet extended release 40 meq PO BID Ozempic 2 mg/dose (8 mg/3 mL) pen injector 2 mg subcut QWEEK Rx Instructions: on friday spironolactone 25 mg tablet 25 mg PO DAILY trazodone 50 mg tablet 50 mg PO HS gabapentin 400 mg capsule 400 mg PO QID furosemide 40 mg tablet 40 - 80 mg PO BID Rx Instructions: takes 40 mg in AM AND 80 MG IN PM Held losartan 50 mg tablet 50 mg PO DAILY Hold Instructions: Resume on 04/01/24. Discharge Orders: Discharge Order (Routine); Ordered 03/29/24 Ordered By: Laly Alba Patient Education: Doxycycline (By mouth), Amoxicillin/Clavulanate Potassium (By mouth), Ipratropium/Albuterol (By breathing), Prednisolone (By mouth), Budesonide (By mouth), Emphysema (DC), Chronic Bronchitis (DC), Chronic Lung Disease and Infection Prevention (DC), Pulmonary Rehabilitation (DC), Energy Conservation Techniques (DC), Nutrition Guidelines for People with COPD (DC) Additional Instructions: [facility]. [facility] for [facility] and this hospitalization. Please ask for a multiple launch rocket system crewmember evaluation and a sleep study. 2. You are being discharged on two antibiotics and those should be taken until gone. 3. You are being discharged on a prednisone taper. Follow instructions on the bottles (there are two a 20mg and 5 mg). 4. Each morning use your nebulizer and do a DuoNeb (ipratropium/albuterol) and a budesonide neb. Thoroughout the day, use albuterol puffer/nebulizer as needed. Repeat the DuoNeb every often as every six hours but at least twice a day with the budensonide neb. The budesonide is a steroid and can only be taken twice a day. Activity Level: Activity as Tolerated Discharge Diet: Diabetic and 2 gm Sodium Follow Up Appointments: Provider,Not a Local [Primary Care Provider] - ([facility] and [facility] in the next 1-2 weeks for f/u of hospitalization, COPD and need for a multiple launch rocket system crewmember referral and sleep study. ) Forms: [employer] Info Instructions
--- NOTE | 2024-03-29 14:26 | PC.NURSE ---
discharge. pt was pleasant. no pain. he was on RA sao2 90-93%. he walked with nurse and RT and with PT. Sao2 above 90%. he is SOB with activity but he does recover in a few minutes. SL are patent x2. he is up with SBA and a walker. he is eating and drinking and voiding. using the urinal. he wanted to go home. MD was in to see. meds given. he got 2 nebs with relief,. went over discharge with pt, went over medications, appointments, educations and instructions. pt went over and signed personal belonging sheet. SL was d/c intact and tele was removed. he got 2 PM antibiotics for home to take late, per . he got a w/c ride out with all belongings and paperwork
== END 2024-03-29 13:00 | disposition home or self-care (01) | DRG 189 ==
LOC: ED 10:27 → MEDSURG 13:47
PROVIDERS: Admitting Provider Physician Assistant; Emergency Provider Emergency Medicine; Visit Provider Family Medicine
DX: J96.01 Acute respiratory failure with hypoxia (principal); J18.9 Pneumonia, unspecified organism; I50.33 Acute on chronic diastolic (congestive) heart failure; J45.901 Unspecified asthma with (acute) exacerbation; Z68.41 Body mass index [BMI] 40.0-44.9, adult; J44.1 Chronic obstructive pulmonary disease with (acute) exacerbation; J44.0 Chronic obstructive pulmonary disease with (acute) lower respiratory infection; I50.32 Chronic diastolic (congestive) heart failure; J20.9 Acute bronchitis, unspecified; E66.01 Morbid (severe) obesity due to excess calories; K21.9 Gastro-esophageal reflux disease without esophagitis; I87.2 Venous insufficiency (chronic) (peripheral); R91.1 Solitary pulmonary nodule; I25.10 Atherosclerotic heart disease of native coronary artery without angina pectoris; D44.12 Neoplasm of uncertain behavior of left adrenal gland; I11.0 Hypertensive heart disease with heart failure; G47.33 Obstructive sleep apnea (adult) (pediatric); N40.1 Benign prostatic hyperplasia with lower urinary tract symptoms; N39.46 Mixed incontinence; Z87.891 Personal history of nicotine dependence
CPT/HCPCS: 36415; 71045; 71046; 71275; 80048; 82803; 83605; 83735; 83880; 84145; 84484; 85025; 85027; 86140; 87631; 93005; 93308; 93321; 93325; 94640; 94660; 94664; 94761; 97110; 97163; 97530; 99285; 99291; A9270; J0456; J0696; J0780; J1940; J2250; J2405; J2919; J3475; J7030; J7050; J7512; J7626; Q9957; Q9967